=== PATIENT | female | born 1960 | race Caucasian/White ===

== ENCOUNTER → 2023-12-22 | Outpatient (CLI) | payer MEDICARE, SELFPAY ==
--- NOTE | 2023-12-22 14:14 | CT_ITS ---
INDICATION: pain EXAMINATION: CT LUMBAR SPINE - CT Spine Lumbar W/O Contrast Injection TECHNIQUE: Helically acquired images were obtained of the lumbar spine. 2D reformats were reviewed. A radiation dose optimization technique was used for this scan. IV Contrast dosage and agent: None. RADIATION DOSAGE (If Supplied By Facility): CTDIvol = ( 23.67 ) mGy, DLP = ( 900.88 ) mGycm COMPARISON: Radiographs of the lumbar spine of 12/15/2023. FINDINGS: VERTEBRAE: Moderate compression fracture of C3 vertebra appears to be chronic. The remainder of the vertebral heights are within normal limits. No discrete lytic or blastic abnormality observed. Normal lumbar lordosis. No substantial scoliosis. DISCS and SPINAL CANAL: Fusion arm L1, L2 and L4 vertebrae with bilateral pedicle screws stabilizing fracture of L3. Depression of the superior endplate of L1 through which the pedicle screws traversing. Difficult to accurately evaluate the disks due to significant artifacts. L1-2: No critical stenosis. L2-L3: Severe artifacts from pedicle screws limiting the evaluation of the intervertebral disc. L3-L4: Degenerative changes in the facet joints. Mild broad-based disc bulging. Borderline central spinal canal.. L4-L5: Severe narrowing of the disc space. Mild broad-based disc bulging and degenerative changes in the facet joints. Narrowing of the neural foramina. Borderline central spinal canal. L5-S1: Degenerative changes in facet joints. Mild broad-based disc bulging. VISUALIZED ABDOMEN: Visualized abdominal aorta is not dilated. There is no retroperitoneal adenopathy. CT/Spine Lumbar without Contrast IMPRESSION: 1. Status post fusion of the lumbar spine as described above stabilizing fracture of L3. 2. Degenerative changes as described above. 3. Limited examination due to significant artifacts from hardware. Electronically Signed: Jose Barnes MD at 15:18 EST ,
== END | disposition home or self-care (01) ==
LOC: CT 14:11
PROVIDERS: PCP Family Medicine; Referring Provider Orthopaedic Surgery Orthopaedic Surgery of the Spine; Visit Provider Orthopaedic Surgery Orthopaedic Surgery of the Spine
DX: Z98.1 Arthrodesis status (principal)
CPT/HCPCS: 72131

== ENCOUNTER → 2023-12-23 | Outpatient (CLI) | payer MEDICARE, SELFPAY ==
--- OUTSIDE RECORDS SUMMARY | 2023-12-23 16:14 | XMS RPT_ITS | CCD ---
Author Name Unknown Address [address] [place] [address] Organization [facility] Care Team Providers Care Air Brake Rigger Name Role Phone PROVIDER, UNKNOWN Unavailable Unavailable Distel, Albina Unavailable Unavailable Distel, Albina Unavailable Unavailable Distel, Albina Mackenzie Primary Care Unavailable Avery, Ashely Unavailable Unavailable Oberhauser, Walt Unavailable Unavailable Distel, Albina M Unavailable Unavailable Avery, Ashely E Unavailable Unavailable Oberhauser, Walt L Unavailable Unavailable Renee Sierra Primary Care Provider Renee Sierra Primary Care Provider SIN PONCE Attending Unavail able SIN PONCE Referring Unavail able RENEE SIERRA Primary Care Unavailable Oberhauser DODorcasn Unavailable Unavailable Distel, Albina M Unavailable Unavailable Avery, Ashely E Unavailable Unavailable Oberhauser, Walt L Unavailable Unavailable Distel, Albina M Unavailable Unavailable Unavailable Liliya Lara MD Primary Care Provider [phone] Ashely Avery MD Unavailable Unavailable Avery, Ashely E Unavailable Unavailable Oberhauser, Walt Angelita Unavailable Unavailab le LILIYA LARA Primary Care Unavailable SYSTEM, PROVIDER NOT IN Referring Unavaila ble SYSTEM, PROVIDER NOT IN Attending Unavaila ble SYSTEM, PROVIDER NOT IN Attending Unavaila ble LILIYA LARA Primary Care Unavailable SYSTEM, PROVIDER NOT IN Referring Unavaila ble Renee Sierra Primary Care Provider Nagi Wagner MD Unavailable Distel, Albina M Unavailable Johnathan Ma I Unavailable Unavailable JaneLiliya bradford MD Primary Care Provider Mariela Renee Alberts Primary Care Provider Nagi Wagner MD Unavailable [facility] Renee Alberts Primary Care Provider Nagi Wagner MD Unavailable JaneLiliya bradford MD Primary Care Provider Liliya Lara MD Primary Care Provider Jet Kenney Unavailable Unavailable SYSTEM, PROVIDER NOT IN Admitting Unavaila ble JANE, LILIYA Primary Care Unavailable JANE, LILIYA Primary Care Unavailable JANE, LILIYA Admitting Unavailable JANE, LILIYA Primary Care Unavailable JANE, LILIYA Admitting Unavailable JANE, LILIYA Primary Care Unavailable SHEFALI JAIN Attending Unavailable JANE, LILIYA Primary Care Unavailable ERIN OHARA Attending Unavail able JNAE, LILIYA Attending Unavailable JANE, LILIYA Referring Unavailable JANE, LILIYA Primary Care Unavailable JANE, LILIYA Attending Unavailable JANE, LILIYA Referring Unavailable JANE, LILIYA Primary Care Unavailable JANE, LILIYA Attending Unavailable JANE, LILIYA Referring Unavailable JANE, LILIYA Primary Care Unavailable Jane Liliya ISAACS Primary Care Provider Unavailable Primary Care Provider Unavailwilliams KENNEY, KENNEDY Consulting Unavailable Andino FOOD COUNSELOR TRANSPORTATION SPECIALIST, Sophie M Unavailable Unavailabl e Jane, Liliya Unavailable Joya Ryan Unavailable Unavailable Asehly Gleason Unavailable Unavailable Mancesarhio, Ms. Lund Attending Unavail able Jaimie, Dr. Albina Mann Primary Care Unavailgreyson Kenney, Dr. Jet Montez Attending Unava ilroderick Etienne, Dr. Albina Mann Primary Care Unavailgreyson Kenney, Dr. Benavides Chito Attending Unavailwilliams Kenney, Dr. Kennedy Dale Referring Unavailabl e Sadie, Ms. Thompson Attending Unavaila MD JOYA Cooper Attending Unavailable JANE, LILIYA Primary Care Unavailable JANE, LILIYA Attending Unavailable JANE, LILIYA Primary Care Unavailable AL GAMEZ Attending Unavailable JANE, LILIYA Primary Care Unavailable JANE, LILIYA Attending Unavailable JANE, LILIYA Primary Care Unavailable JANE, LILIYA Attending Unavailable JANE, LILIYA Attending Unavailable JANE, LILIYA Primary Care Unavailable JANE, LILIYA Attending Unavailable JANE, LILIYA Primary Care Unavailable JANE, LILIYA Primary Care Unavailable JANE, LILIYA Attending Unavailable JANE, LILIYA Attending Unavailable JANE, LILIYA Primary Care Unavailable JANE, LILIYA Attending Unavailable JANE, LILIYA Primary Care Unavailable JANE, LILIYA Primary Care Unavailable JANE, LILIYA Attending Unavailable JANE, LILIYA Primary Care Unavailable SAI CELESTIN Attending Unavailable JANE, LILIYA Primary Care Unavailable JANE, LILIYA Attending Unavailable JANE, LILIYA Primary Care Unavailable THANIA LOWERY Attending Unavailable JANE, LILIYA Primary Care Unavailable AL GAMEZ Attending Unavailable JANE, LILIYA Primary Care Unavailable SAI CELESTIN Attending Unavailable Nagi Wagner MD Unavailable [phone] Thu FOOD COUNSELOR TRANSPORTATION SPECIALISTSophie Unavailable Unavailabl e PROVIDER, UNKNOWN Referring Unavailable JANE, LILIYA Primary Care Unavailable KENNEDY KENNEY Unavailable Malvin Johnson DO Primary Care Provider [phone] EFRA BUCK Attending Unavailable JANE, LILIYA Primary Care Unavailable NORMA NARAYANAN Referring Unavailable SHIVA MALVIN A Primary Care Unavailable WALT CARRION Attending Unavailable SHIVA, MALVIN A Primary Care Unavailable TOMMY BRENNAN Referring Unavailable JANE, LILIYA Primary Care Unavailable TOMMY BRENNAN Referring Unavailable JANE, LILIYA Primary Care Unavailable TOMMY BRENNAN Attending Unavailable JANE, LILIYA Referring Unavailable JANE, LILIYA Primary Care Unavailable WALT CARRION Referring Unavailable SHIVA, MALVIN A Primary Care Unavailable FREDERIC BARTH Attending Unavailable WALT CARRION Referring Unavailable JOHNSON, MALVIN A Primary Care Unavailable DORCAS CARRIONN Referring Unavailable SHIVA, MALVIN A Primary Care Unavailable REGINA WALT Referring Unavailable NORMA NARAYANAN M Attending Unavailable JANE, LILIYA Primary Care Unavailable Allergies Allergy Classification Reported Allergen(s) Allergy Type Date of Onset Reaction(s) Facility Bacitracin / Neomycin / Polymyxin B (2 sources) Bacitracin / Neomycin / Polymyxin B; Translations: [Neosporin LT OINT] Drug Allergy [facility] Work Phone: Iodine (and Iodine containting drugs) (2 sources) Iodine; Translations: [iodine] Drug Allergy [facility] Work Phone: Penicillins (antibiotic) (2 sources) Penicillins; Translations: [Penicillins] Drug Allergy [facility] Work Phone: (3 sources) Bacitracin / Neomycin / Polymyxin B Drug Allergy [facility] Work Phone: (20 sources) Iodine; Translations: [IODINE] Drug Allergy 3 Anaphylaxis [facility] Work Phone: (20 sources) Penicillins; Translations: [Penicillins] Allergy to drug (finding) 2 Rash [facility] Work Phone: (20 sources) Adhesive agent; Translations: [ADHESIVE] Propensity to adverse reactions to drug 7 Itching, Rash [facility] (20 sources) Gramicidin / Neomycin / Polymyxin B; Translations: [NEOMYCIN-POLYM YXIN-GRAMICIDIN ] Drug Allergy 6 [facility] (20 sources) Neomycin-Bacitr acin-Polymyxin; Translations: [NEOMYCIN-BACIT RACIN-POLYMYXIN ] Propensity to adverse reactions to drug 9 Rash, Itching [facility] (20 sources) Penicillins Propensity to adverse reactions to drug 2 Other: See Comments [facility] (20 sources) Iodine And Iodide Containing Products; Translations: [IODINE AND IODIDE CONTAINING PRODUCTS] Propensity to adverse reactions to drug Unknown [facility] (4 sources) Contrast media Rash, Itching, Other [facility] (20 sources) Ct: Iodinated Contrast- Oral And Iv Dye; Translations: [CT: IODINATED CONTRAST- ORAL AND IV DYE] Propensity to adverse reactions to drug 2 Unknown, Rash [facility] Work Phone: (20 sources) Penicillins Propensity to adverse reactions to drug 2 Other: See Comments [facility] (2 sources) Penicillins Propensity to adverse reactions 3 [facility] Medications Current Medications Medication Drug Class(es) Dates Sig (Normalized) Sig (Original) acetaminophen 325 mg / butalbital 50 mg / caffeine 40 mg oral capsule (2 sources) Barbiturate, Central Nervous System Stimulant, Methylxanthine Start: 02-17-2021 End: 02-27-2021 take 1 capsule by mouth every four hours as needed for pain butalbital-acetamin ophen-caffeine (FIORICET, ESGIC) 50-325-40 mg per capsule Indications: Migraine with status migrainosus, not intractable, unspecified migraine type Take 1 (one) capsule by mouth every 4 (four) hours as needed for pain or headaches . 30 capsule 1 02/17/2021 02/27/2021 Active acetaminophen 325 mg / HYDROcodone bitartrate 5 mg oral tablet (2 sources) Opioid Agonist Start: 06-23-2023 End: 06-29-2023 take 1 tablet by mouth every eight hours as needed for pain HYDROcodone-acetami nophen (NORCO) 5-325 mg per tablet Indications: Degeneration of lumbar intervertebral disc Take 1 (one) tablet by mouth every 8 (eight) hours as needed for pain . 18 tablet 0 06/23/2023 06/29/2023 Active acetaminophen 325 mg / oxyCODONE hydrochloride 10 mg oral tablet (20 sources) Opioid Agonist Start: 06-25-2023 End: 06-28-2023 take 1 tablet by mouth every eight hours as needed for pain oxyCODONE-acetamino phen (PERCOCET) 10-325 mg per tablet Indications: Degeneration of lumbar intervertebral disc Take 1 (one) tablet by mouth every 8 (eight) hours as needed for pain . 10 tablet 0 06/25/2023 06/28/2023 Active Completed/Discontinued Medications Medication Drug Class(es) Dates Sig (Normalized) Sig (Original) acetaminophen 300 mg / codeine phosphate 30 mg oral tablet (4 sources) Opioid Agonist Start: 04-22-2020 take 1 tablet by mouth four times daily as needed for pain Acetaminophen-Cod eine 300-30 MG Oral Tablet TAKE 1 TABLET 4 TIMES DAILY NEEDED FOR PAIN. Quantity: 30 Refills: 0 Ordered: 22-Apr-2020 Walt Caban DO Start : 22-Apr-2020 Active Problems Active Problems Problem Classification Problem Date Documented Da te Episodic/Chronic Acquired foot deformities (16 sources) Acquired hallux rigidus; Translations: [Hallux rigidus, unspecified foot] Onset: 10-02-2009 10-02-2009 Chronic Acute bronchitis (5 sources) Acute bronchitis; Translations: [Acute bronchitis] Episodic Allergic reactions (20 sources) Allergy status to other drugs, medicaments and biological substances status; Translations: [Allergy status to penicillin] Onset: 07-06-2018 Resolved: 04-20-2022 Episodic Anxiety disorders (20 sources) Panic attack; Translations: [Mixed anxiety and depressive disorder] Onset: 12-17-2015 Resolved: 04-27-2022 12-25-2020 Chronic Past or Other Problems Problem Classification Problem Date Documented Da te Episodic/Chronic Acquired foot deformities (20 sources) Abduction deformity of foot; Translations: [Valgus deformity, not elsewhere classified, right ankle] Onset: 10-27-2021 Episodic Administrative/social admission (20 sources) Financial problem; Translations: [Problem related to housing and economic circumstances, unspecified] Onset: 05-29-2022 Episodic Cardiac dysrhythmias (20 sources) Bradycardia; Translations: [Bradycardia, unspecified] Onset: 12-16-2021 Resolved: 04-27-2022 Episodic Conditions associated with dizziness or vertigo (20 sources) Vertigo; Translations: [Dizziness and giddiness] Onset: 12-16-2021 Resolved: 04-27-2022 Episodic Coronary atherosclerosis and other heart disease (12 sources) History of myocardial infarction; Translations: [History of coronary artery bypass grafting] Onset: 10-05-2015 12-25-2020 Episodic Diabetes mellitus without complication (19 sources) Impaired glucose tolerance in obese; Translations: [Impaired glucose tolerance (oral)] Onset: 01-17-2023 01-17-2023 Episodic E Codes: Struck by; against (1 source) Striking against other object with subsequent fall, initial encounter; Translations: [Striking against oth object w subsequent fall, init encntr] Onset: 02-14-2023 Episodic Genitourinary symptoms and ill-defined conditions (2 sources) Dysuria; Translations: [Dysuria] Onset: 08-16-2022 Episodic Hemorrhoids (20 sources) Hemorrhoids; Translations: [Unspecified hemorrhoids without mention of complication] Onset: 12-25-2020 12-25-2020 Episodic Nonspecific chest pain (16 sources) Chest discomfort; Translations: [Other chest pain] Onset: 01-19-2017 01-21-2017 Episodic Other aftercare (2 sources) Encounter for therapeutic drug level monitoring; Translations: [Encounter for therapeutic drug level monitoring] Onset: 01-17-2023 Episodic Other bone disease and musculoskeletal deformities (5 sources) Other specified disorders of bone density and structure, unspecified site; Translations: [Oth disrd of bone density and structure, unspecified site] Onset: 07-06-2018 Episodic Other bone disease and musculoskeletal deformities (1 source) Other specified disorders of bone density and structure, left forearm; Translations: [Oth disrd of bone density and structure, left forearm] Onset: 03-18-2023 Episodic Other bone disease and musculoskeletal deformities (1 source) Other specified disorders of bone density and structure, other site; Translations: [Oth disrd of bone density and structure, other site] Onset: 03-18-2023 Episodic Other connective tissue disease (20 sources) Bilateral bursitis of shoulders; Translations: [Bursitis of right shoulder] Onset: 01-19-2022 Episodic Other connective tissue disease (16 sources) Bilateral cramp of muscle of lower limbs; Translations: [Cramp and spasm] Onset: 01-19-2017 01-21-2017 Episodic Other connective tissue disease (4 sources) Bursitis of right shoulder; Translations: [Bursitis of right shoulder] Onset: 01-19-2022 Episodic Other connective tissue disease (4 sources) Bursitis of left shoulder; Translations: [Bursitis of left shoulder] Onset: 01-19-2022 Episodic Other injuries and conditions due to external causes (16 sources) Superficial injury; Translations: [Unspecified multiple injuries, initial encounter] Onset: 02-28-2009 02-28-2009 Episodic Other injuries and conditions due to external causes (1 source) Other specified injuries of head, initial encounter; Translations: [Other specified injuries of head, initial encounter] Onset: 02-14-2023 Episodic Other injuries and conditions due to external causes (1 source) Unspecified injury of left forearm, initial encounter; Translations: [Unspecified injury of left forearm, initial encounter] Onset: 02-14-2023 Episodic Other lower respiratory disease (5 sources) H/O: respiratory disease; Translations: [Personal history of other diseases of respiratory system] Resolved: 07-05-2018 Episodic Other lower respiratory disease (12 sources) Rib pain; Translations: [Pleurodynia] Onset: 02-23-2023 02-23-2023 Episodic Other lower respiratory disease (5 sources) Pleurodynia; Translations: [Pleurodynia] Onset: 02-14-2023 Episodic Other non-traumatic joint disorders (20 sources) Hip pain; Translations: [Pain in left hip] Onset: 07-26-2022 Episodic Other nutritional; endocrine; and metabolic disorders (20 sources) Weight loss; Translations: [Loss of weight] Resolved: 12-16-2021 05-07-2021 Episodic Other nutritional; endocrine; and metabolic disorders (1 source) Body mass index (BMI) 29.0-29.9, adult; Translations: [Body mass index [BMI] 29.0-29.9, adult] Onset: 02-14-2023 Episodic Other screening for suspected conditions (not mental disorders or infectious disease) (20 sources) Patient encounter status; Translations: [Other specified vaccination] Onset: 01-16-2022 Episodic Results Test Name Value Interpretation Reference Range Facil it Vital Signs Date Time Vital Sign Value Performing Clinician Facility 10-24-2023 10:32-0500 Body height 160 cm Walt Carrion APRN.CNP Work Phone: [facility] 10-24-2023 10:32-0500 Body weight 89.22 kg Walt Carrion APRN.CNP Work Phone: [facility] 10-24-2023 10:32-0500 Diastolic blood pressure 67 mm[Hg] Walt Carrion APRN.CNP Work Phone: [facility] 10-24-2023 10:32-0500 Heart rate 57 /min Walt Carrion APRN.PUNCH HAND Work Phone: [facility] 10-24-2023 10:32-0500 Respiratory rate 18 /min Walt Carrion APRN.CNP Work Phone: [facility] 10-24-2023 10:32-0500 Systolic blood pressure 112 mm[Hg] Walt Carrion APRN.CNP Work Phone: [facility] 09-26-2023 14:27-0500 Body temperature 97.9 [degF] Sp[facility] Main Work Phone: [facility] 09-26-2023 14:27-0500 Diastolic blood pressure 60 mm[Hg] [facility] Main Work Phone: [facility] 09-26-2023 14:27-0500 Heart rate 52 /min [facility] Work Phone: [facility] 09-26-2023 14:27-0500 Respiratory rate 18 /min [facility] Work Phone: [facility] 09-26-2023 14:27-0500 SaO2% (BldA) [Mass fraction] 98 % [facility] Work Phone: [facility] 09-26-2023 14:27-0500 Systolic blood pressure 114 mm[Hg] [facility] Main Work Phone: [facility] 09-19-2023 13:21-0500 Body temperature 98.71 [degF] Sp[facility] Main Work Phone: [facility] 09-19-2023 13:21-0500 Diastolic blood pressure 59 mm[Hg] [facility] Main Work Phone: [facility] 09-19-2023 13:21-0500 Heart rate 57 /min Sp[facility] Main Work Phone: [facility] 09-19-2023 13:21-0500 Respiratory rate 18 /min [facility] Main Work Phone: [facility] 09-19-2023 13:21-0500 Systolic blood pressure 108 mm[Hg] Sp[facility] Main Work Phone: [facility] 08-01-2023 09:49-0400 Body height 160.7 cm Liliya Lara MD Work Phone: [facility] 08-01-2023 09:49-0400 Body temperature 98.49 [degF] Liliya Lara MD Work Phone: [facility] 08-01-2023 09:49-0400 Diastolic blood pressure 68 mm[Hg] Liliya Lara MD Work Phone: [facility] 08-01-2023 09:49-0400 Heart rate 49 /min Liliya Lara MD Work Phone: [facility] 08-01-2023 09:49-0400 Respiratory rate 16 /min Liliya Lara MD Work Phone: [facility] 08-01-2023 09:49-0400 SaO2% (BldA) [Mass fraction] 95 % Liliya Lara MD Work Phone: [facility] 08-01-2023 09:49-0400 Systolic blood pressure 130 mm[Hg] Liliya Lara MD Work Phone: [facility] 06-22-2023 23:11-0400 Diastolic blood pressure 90 mm[Hg] Liliya Lara [facility] 06-22-2023 23:11-0400 Heart rate 58 /min Liliya Jane [facility] 06-22-2023 23:11-0400 Respiratory rate 16 /min Liliya Jane [facility] 06-22-2023 23:11-0400 SaO2% (BldA) [Mass fraction] 97 % Liliya Jane [facility] 06-22-2023 23:11-0400 Systolic blood pressure 107 mm[Hg] Liliya Jane [facility] 06-22-2023 15:03-0400 Body height 160 cm Liliya Jane [facility] 06-22-2023 15:03-0400 Body temperature 97.88 [degF] Liliya Jane [facility] 06-22-2023 15:03-0400 Body weight 84.5 kg Liliya Jane [facility] 06-21-2023 19:51-0400 Body height 160 cm Liliya Jane [facility] 06-21-2023 19:51-0400 Body temperature 98.06 [degF] Liliya Jane [facility] 06-21-2023 19:51-0400 Body weight 84 kg Liliya Jane [facility] 06-21-2023 19:51-0400 Diastolic blood pressure 85 mm[Hg] Liliya Jane [facility] 06-21-2023 19:51-0400 Heart rate 58 /min Liliya Lara [facility] 06-21-2023 19:51-0400 Respiratory rate 18 /min Liliya Lara [facility] 06-21-2023 19:51-0400 SaO2% (BldA) [Mass fraction] 98 % Liliya Lara [facility] 06-21-2023 19:51-0400 Systolic blood pressure 154 mm[Hg] Liliya Lara [facility] 06-21-2023 16:54-0400 Body height 160.7 cm Liliya Lara MD Work Phone: [facility] 06-21-2023 16:54-0400 Body temperature 98.01 [degF] Liliya Lara MD Work Phone: [facility] 06-21-2023 16:54-0400 Diastolic blood pressure 75 mm[Hg] Liliya Lara MD Work Phone: [facility] 06-21-2023 16:54-0400 Heart rate 56 /min Liliya Lara MD Work Phone: [facility] 06-21-2023 16:54-0400 Respiratory rate 16 /min Liliya Lara MD Work Phone: [facility] 06-21-2023 16:54-0400 SaO2% (BldA) [Mass fraction] 97 % Liliya Lara MD Work Phone: [facility] 06-21-2023 16:54-0400 Systolic blood pressure 137 mm[Hg] Liliya Lara MD Work Phone: [facility] 05-16-2023 18:09-0400 Body temperature 98.49 [degF] [facility] 05-16-2023 18:09-0400 Diastolic blood pressure 55 mm[Hg] [facility] 05-16-2023 18:09-0400 Heart rate 60 /min [facility] 05-16-2023 18:09-0400 Respiratory rate 17 /min [facility] 05-16-2023 18:09-0400 SaO2% (BldA) [Mass fraction] 99 % [facility] 05-16-2023 18:09-0400 Systolic blood pressure 118 mm[Hg] [facility] 05-04-2023 18:44-0400 Body height 167.6 cm Liliya Lara MD Work Phone: [facility] 05-04-2023 18:44-0400 Body mass index (BMI) [Ratio] 30.34 kg/m2 Liliya Lara MD Work Phone: [facility] 05-04-2023 18:44-0400 Body temperature 98.2 [degF] Liliya Lara MD Work Phone: [facility] 05-04-2023 18:44-0400 Body weight 85.28 kg Lilyia Lara MD Work Phone: [facility] 05-04-2023 18:44-0400 Diastolic blood pressure 66 mm[Hg] Liliya Lara MD Work Phone: [facility] 05-04-2023 18:44-0400 Heart rate 97 /min Liliya Lara MD Work Phone: [facility] 05-04-2023 18:44-0400 Respiratory rate 16 /min Liliya Lara MD Work Phone: [facility] 05-04-2023 18:44-0400 SaO2% (BldA) [Mass fraction] 98 % Liliya Lara MD Work Phone: [facility] 05-04-2023 18:44-0400 Systolic blood pressure 96 mm[Hg] Liliya Lara MD Work Phone: [facility] 04-28-2023 09:36-0400 Body height 167.6 cm Efra Buck APRN.PUNCH HAND Work Phone: [facility] 04-28-2023 09:36-0400 Body weight 85.28 kg Efra Buck APRN.PUNCH [employer] Work Phone: [facility] 04-28-2023 09:36-0400 Diastolic blood pressure 62 mm[Hg] Efra Buck YARN WORKER.P[employer] Work Phone: [facility] 04-28-2023 09:36-0400 Heart rate 53 /min Efra Buck YARN WORKER.P[employer] Work Phone: [facility] 04-28-2023 09:36-0400 Respiratory rate 18 /min Efra Buck YARN WORKER.PUN[employer] Work Phone: [facility] 04-28-2023 09:36-0400 SaO2% (BldA) [Mass fraction] 98 % Efra Buck YARN WORKER.P[employer]CH [employer] Work Phone: [facility] 04-28-2023 09:36-0400 Systolic blood pressure 128 mm[Hg] Efra Buck YARN WORKER.PUNCH HAND Work Phone: [facility] 02-23-2023 07:35-0400 Body height 167.6 cm Liliya Lara MD Work Phone: [facility] 02-23-2023 07:35-0400 Body temperature 98.4 [degF] Liliya Lara MD Work Phone: [facility] 02-23-2023 07:35-0400 Diastolic blood pressure 82 mm[Hg] Liliya Lara MD Work Phone: [facility] 02-23-2023 07:35-0400 Heart rate 58 /min Liliya Lara MD Work Phone: [facility] 02-23-2023 07:35-0400 Respiratory rate 16 /min Liliya Lara MD Work Phone: [facility] 02-23-2023 07:35-0400 SaO2% (BldA) [Mass fraction] 94 % Liliya Lara MD Work Phone: [facility] 02-23-2023 07:35-0400 Systolic blood pressure 124 mm[Hg] Liliya Lara MD Work Phone: [facility] 02-14-2023 23:12-0400 Diastolic blood pressure 72 mm[Hg] Albina Etienne Other Phone: [facility] 02-14-2023 23:12-0400 Heart rate 54 /min Albina Distel Other Phone: [facility] 02-14-2023 23:12-0400 Respiratory rate 18 /min Albina Distel Other Phone: [facility] 02-14-2023 23:12-0400 SaO2% (BldA) [Mass fraction] 98 % Albina Distel Other Phone: [facility] 02-14-2023 23:12-0400 Systolic blood pressure 146 mm[Hg] Albina Distel Other Phone: [facility] 02-14-2023 20:13-0400 Body height 167.6 cm Albina Distel Other Phone: [facility] 02-14-2023 20:13-0400 Body temperature 97.88 [degF] Albina Distel Other Phone: [facility] 02-14-2023 20:13-0400 Body weight 81.8 kg Albina Distel Other Phone: [facility] 01-17-2023 18:18-0500 Body height 167.6 cm Liliya Lara MD Work Phone: [facility] 01-17-2023 18:18-0500 Body mass index (BMI) [Ratio] 29.05 kg/m2 Liliya Lara MD Work Phone: [facility] 01-17-2023 18:18-0500 Body temperature 98.01 [degF] Liliya Lara MD Work Phone: [facility] 01-17-2023 18:18-0500 Body weight 81.65 kg Liliya Lara MD Work Phone: [facility] 01-17-2023 18:18-0500 Diastolic blood pressure 79 mm[Hg] Liliya Lara MD Work Phone: [facility] 01-17-2023 18:18-0500 Heart rate 63 /min Liliya Lara MD Work Phone: [facility] 01-17-2023 18:18-0500 Respiratory rate 16 /min Liliya Lara MD Work Phone: [facility] 01-17-2023 18:18-0500 SaO2% (BldA) [Mass fraction] 99 % Liliya Lara MD Work Phone: [facility] 01-17-2023 18:18-0500 Systolic blood pressure 139 mm[Hg] Liliya Lara MD Work Phone: [facility] 11-03-2022 09:29-0500 Body height 167.6 cm Guevara Espino MD Work Phone: [facility] 11-03-2022 09:29-0500 Body weight 80.29 kg Guevara Espino MD Work Phone: [facility] 11-03-2022 09:29-0500 Diastolic blood pressure 78 mm[Hg] Guevara Espino MD Work Phone: [facility] 11-03-2022 09:29-0500 Heart rate 69 /min Guevara Espino MD Work Phone: [facility] 11-03-2022 09:29-0500 Respiratory rate 18 /min Guevara Espino MD Work Phone: [facility] 11-03-2022 09:29-0500 SaO2% (BldA) [Mass fraction] 98 % Guevara Espino MD Work Phone: [facility] 11-03-2022 09:29-0500 Systolic blood pressure 122 mm[Hg] Guevara Espino MD Work Phone: [facility] 10-26-2022 10:28-0500 Body height 167.6 cm Liliya Lara MD Work Phone: [facility] 10-26-2022 10:28-0500 Body mass index (BMI) [Ratio] 27.44 kg/m2 Liliya Lara MD Work Phone: [facility] 10-26-2022 10:28-0500 Body temperature 98.4 [degF] Liliya Lara MD Work Phone: [facility] 10-26-2022 10:28-0500 Body weight 77.11 kg Liliya Lara MD Work Phone: [facility] 10-26-2022 10:28-0500 Diastolic blood pressure 80 mm[Hg] Liliya Lara MD Work Phone: [facility] 10-26-2022 10:28-0500 Heart rate 64 /min Liliya Lara MD Work Phone: [facility] 10-26-2022 10:28-0500 Respiratory rate 16 /min Liliya Lara MD Work Phone: [facility] 10-26-2022 10:28-0500 SaO2% (BldA) [Mass fraction] 98 % Liliya Lara MD Work Phone: [facility] 10-26-2022 10:28-0500 Systolic blood pressure 119 mm[Hg] Liliya Lara MD Work Phone: [facility] 08-12-2022 10:02-0400 Body height 167.6 cm Guevara Espino MD Work Phone: [facility] 08-12-2022 10:02-0400 Body weight 79.38 kg Guevara Espino MD Work Phone: [facility] 08-12-2022 10:02-0400 Diastolic blood pressure 76 mm[Hg] Guevara Espino MD Work Phone: [facility] 08-12-2022 10:02-0400 Heart rate 57 /min Guevara Espino MD Work Phone: [facility] 08-12-2022 10:02-0400 SaO2% (BldA) [Mass fraction] 97 % Guevara Espino MD Work Phone: [facility] 08-12-2022 10:02-0400 Systolic blood pressure 113 mm[Hg] Guevara Espino MD Work Phone: [facility] 07-21-2022 16:43-0400 Body height 167.6 cm Liliya Lara MD Work Phone: [facility] 07-21-2022 16:43-0400 Body mass index (BMI) [Ratio] 27.44 kg/m2 Liliya Lara MD Work Phone: [facility] 07-21-2022 16:43-0400 Body temperature 97.39 [degF] Liliya Lara MD Work Phone: [facility] 07-21-2022 16:43-0400 Body weight 77.11 kg Liliya Lara MD Work Phone: [facility] 07-21-2022 16:43-0400 Diastolic blood pressure 73 mm[Hg] Liliya Lara MD Work Phone: [facility] 07-21-2022 16:43-0400 Heart rate 60 /min Liliya Lara MD Work Phone: [facility] 07-21-2022 16:43-0400 Respiratory rate 16 /min Liliya Lara MD Work Phone: [facility] 07-21-2022 16:43-0400 SaO2% (BldA) [Mass fraction] 97 % Liliya Lara MD Work Phone: [facility] 07-21-2022 16:43-0400 Systolic blood pressure 114 mm[Hg] Liliya Lraa MD Work Phone: [facility] 05-25-2022 06:49-0400 Body height 167.6 cm Liliya Lara MD Work Phone: [facility] 05-25-2022 06:49-0400 Body mass index (BMI) [Ratio] 26.63 kg/m2 Liliya Lara MD Work Phone: [facility] 05-25-2022 06:49-0400 Body temperature 98.2 [degF] Liliya Lara MD Work Phone: [facility] 05-25-2022 06:49-0400 Body weight 74.84 kg Liliya Lara MD Work Phone: [facility] 05-25-2022 06:49-0400 Diastolic blood pressure 81 mm[Hg] Liliya Lara MD Work Phone: [facility] 05-25-2022 06:49-0400 Heart rate 58 /min Liliya Lara MD Work Phone: [facility] 05-25-2022 06:49-0400 Respiratory rate 16 /min Liliya Lara MD Work Phone: [facility] 05-25-2022 06:49-0400 SaO2% (BldA) [Mass fraction] 96 % Liliya Lara MD Work Phone: [facility] 05-25-2022 06:49-0400 Systolic blood pressure 129 mm[Hg] Liliya Lara MD Work Phone: [facility] 04-20-2022 16:08-0400 Body height 167.6 cm Liliya Lara MD Work Phone: [facility] 04-20-2022 16:08-0400 Body mass index (BMI) [Ratio] 27.44 kg/m2 Liliya Lara MD Work Phone: [facility] 04-20-2022 16:08-0400 Body temperature 97 [degF] Liliya Lara MD Work Phone: [facility] 04-20-2022 16:08-0400 Body weight 77.11 kg Liliya Lara MD Work Phone: [facility] 04-20-2022 16:08-0400 Diastolic blood pressure 65 mm[Hg] Liliya Lara MD Work Phone: [facility] 04-20-2022 16:08-0400 Heart rate 47 /min Liliya Lara MD Work Phone: [facility] 04-20-2022 16:08-0400 Respiratory rate 16 /min Liliya Lara MD Work Phone: [facility] 04-20-2022 16:08-0400 SaO2% (BldA) [Mass fraction] 96 % Liliya Lara MD Work Phone: [facility] 04-20-2022 16:08-0400 Systolic blood pressure 112 mm[Hg] Liliya Lara MD Work Phone: [facility] 04-10-2022 22:08-0400 Diastolic blood pressure 80 mm[Hg] Albina Distel Other Phone: [facility] 04-10-2022 22:08-0400 Heart rate 87 /min Albina Distel Other Phone: [facility] 04-10-2022 22:08-0400 Respiratory rate 16 /min Albina Distel Other Phone: [facility] 04-10-2022 22:08-0400 SaO2% (BldA) [Mass fraction] 98 % Albina Distel Other Phone: [facility] 04-10-2022 22:08-0400 Systolic blood pressure 120 mm[Hg] Albina Distel Other Phone: [facility] 04-10-2022 20:59-0400 Body height 167.6 cm Albina Distel Other Phone: [facility] 04-10-2022 20:59-0400 Body temperature 97.16 [degF] Albina Distel Other Phone: [facility] 04-10-2022 20:59-0400 Body weight 76.4 kg Albina Distel Other Phone: [facility] 02-23-2022 08:58-0400 Body temperature 98.01 [degF] Sai Celestin RN [facility] 01-19-2022 15:48-0500 Body height 167.6 cm Liliya Lara MD Work Phone: [facility] 01-19-2022 15:48-0500 Body mass index (BMI) [Ratio] 27.6 kg/m2 Liliya Lara MD Work Phone: [facility] 01-19-2022 15:48-0500 Body temperature 98.2 [degF] Liliya Lara MD Work Phone: [facility] 01-19-2022 15:48-0500 Body weight 77.56 kg Liliya Lara MD Work Phone: [facility] 01-19-2022 15:48-0500 Diastolic blood pressure 71 mm[Hg] Liliya Lara MD Work Phone: [facility] 01-19-2022 15:48-0500 Heart rate 57 /min Liliya Lara MD Work Phone: [facility] 01-19-2022 15:48-0500 Respiratory rate 16 /min Lliiya Lara MD Work Phone: [facility] 01-19-2022 15:48-0500 SaO2% (BldA) [Mass fraction] 97 % Liliya Lara MD Work Phone: [facility] 01-19-2022 15:48-0500 Systolic blood pressure 109 mm[Hg] Liliya Lara MD Work Phone: [facility] 01-13-2022 09:48-0500 Body height 167.6 cm Liliya Lara MD Work Phone: [facility] 01-13-2022 09:48-0500 Body mass index (BMI) [Ratio] 27.92 kg/m2 Liliya Lara MD Work Phone: [facility] 01-13-2022 09:48-0500 Body temperature 97.59 [degF] Liliya Lara MD Work Phone: [facility] 01-13-2022 09:48-0500 Body weight 78.47 kg Liliya Lara MD Work Phone: [facility] 01-13-2022 09:48-0500 Diastolic blood pressure 75 mm[Hg] Liliya Lara MD Work Phone: [facility] 01-13-2022 09:48-0500 Heart rate 56 /min Liliya Lara MD Work Phone: [facility] 01-13-2022 09:48-0500 Respiratory rate 16 /min Liliya Lara MD Work Phone: [facility] 01-13-2022 09:48-0500 SaO2% (BldA) [Mass fraction] 97 % Liliya Lara MD Work Phone: [facility] 01-13-2022 09:48-0500 Systolic blood pressure 112 mm[Hg] Liliya Lara MD Work Phone: [facility] 12-29-2021 15:51-0500 Body height 167.6 cm Liliya Lara MD Work Phone: [facility] 12-29-2021 15:51-0500 Body mass index (BMI) [Ratio] 27.44 kg/m2 Liliya Lara MD Work Phone: [facility] 12-29-2021 15:51-0500 Body temperature 98.1 [degF] Liliya Lara MD Work Phone: [facility] 12-29-2021 15:51-0500 Body weight 77.11 kg Liliya Lara MD Work Phone: [facility] 12-29-2021 15:51-0500 Diastolic blood pressure 69 mm[Hg] Liliya Lara MD Work Phone: [facility] 12-29-2021 15:51-0500 Heart rate 50 /min Liliya Lara MD Work Phone: [facility] 12-29-2021 15:51-0500 Respiratory rate 16 /min Liliya Lara MD Work Phone: [facility] 12-29-2021 15:51-0500 SaO2% (BldA) [Mass fraction] 98 % Liliya Lara MD Work Phone: [facility] 12-29-2021 15:51-0500 Systolic blood pressure 107 mm[Hg] Liliya Lara MD Work Phone: [facility] 12-15-2021 18:24-0500 Body height 167.6 cm Liliya Lara MD Work Phone: [facility] 12-15-2021 18:24-0500 Body mass index (BMI) [Ratio] 27.63 kg/m2 Liliya Lara MD Work Phone: [facility] 12-15-2021 18:24-0500 Body temperature 97.59 [degF] Liliya Lara MD Work Phone: [facility] 12-15-2021 18:24-0500 Body weight 77.66 kg Liliya Lara MD Work Phone: [facility] 12-15-2021 18:24-0500 Diastolic blood pressure 82 mm[Hg] Liliya Lara MD Work Phone: [facility] 12-15-2021 18:24-0500 Heart rate 63 /min Liliya Lara MD Work Phone: [facility] 12-15-2021 18:24-0500 Respiratory rate 18 /min Liliya Lara MD Work Phone: [facility] 12-15-2021 18:24-0500 SaO2% (BldA) [Mass fraction] 96 % Liliya Lara MD Work Phone: [facility] 12-15-2021 18:24-0500 Systolic blood pressure 130 mm[Hg] Liliya Lara MD Work Phone: [facility] 11-03-2021 15:18-0500 Body height 167.6 cm Liliya Lara MD Work Phone: [facility] 11-03-2021 15:18-0500 Body mass index (BMI) [Ratio] 26.79 kg/m2 Liliya Lara MD Work Phone: [facility] 11-03-2021 15:18-0500 Body temperature 98.4 [degF] Liliya Lara MD Work Phone: [facility] 11-03-2021 15:18-0500 Body weight 75.3 kg Liliya Lara MD Work Phone: [facility] 11-03-2021 15:18-0500 Diastolic blood pressure 60 mm[Hg] Liliya Lara MD Work Phone: [facility] 11-03-2021 15:18-0500 Heart rate 61 /min Liliya Lara MD Work Phone: [facility] 11-03-2021 15:18-0500 Respiratory rate 16 /min Liliya Lara MD Work Phone: [facility] 11-03-2021 15:18-0500 SaO2% (BldA) [Mass fraction] 96 % Liliya Lara MD Work Phone: [facility] 11-03-2021 15:18-0500 Systolic blood pressure 95 mm[Hg] Liliya Lara MD Work Phone: [facility] 02-17-2021 13:14-0400 BMI (Body Mass Index) 27.26 kg/m2 [facility] 02-17-2021 13:14-0400 Body Temperature 98.29 [degF] [facility] 02-17-2021 13:14-0400 Body weight 76.61 kg [facility] 02-17-2021 13:14-0400 BP Diastolic 66 mm[Hg] [facility] 02-17-2021 13:14-0400 BP Systolic 116 mm[Hg] [facility] 02-17-2021 13:14-0400 Height 167.6 cm [facility] 02-17-2021 13:14-0400 Pulse (Heart Rate) 62 /min [facility] 02-17-2021 13:14-0400 Pulse Oximetry 97 % [facility] 02-17-2021 13:14-0400 Respiratory Rate 16 /min [facility] 12-25-2020 14:04-0500 BMI (Body Mass Index) 27.42 kg/m2 [facility] 12-25-2020 14:04-0500 Body Temperature 98.2 [degF] [facility] 12-25-2020 14:04-0500 Body weight 77.07 kg [facility] 12-25-2020 14:04-0500 BP Diastolic 68 mm[Hg] [facility] 12-25-2020 14:04-0500 BP Systolic 105 mm[Hg] [facility] 12-25-2020 14:04-0500 Height 167.6 cm [facility] 12-25-2020 14:04-0500 Pulse (Heart Rate) 65 /min [facility] 12-25-2020 14:04-0500 Pulse Oximetry 95 % [facility] 12-25-2020 14:04-0500 Respiratory Rate 16 /min [facility] 01-03-2020 16:49-0500 BMI (Body Mass Index) 25.66 kg/m2 Ashely Avery [facility] Work Phone: 01-03-2020 16:49-0500 Body weight 72.12 kg Ashely Avery [facility] Work Phone: 01-03-2020 16:49-0500 BP Diastolic 66 mm[Hg] Ashely Avery [facility] Work Phone: 01-03-2020 16:49-0500 BP Systolic 116 mm[Hg] Ashely Avery [facility] Work Phone: 01-03-2020 16:49-0500 BSA (Body Surface Area) 1.81 m2 Ashely Avery [facility] Work Phone: 01-03-2020 16:49-0500 Height 167.64 cm Ashely Avery [facility] Work Phone: Encounters Encounter Date Encounter Type Care Provider Facility Start: 11-21-2023 End: 11-21-2023 ambulatory WALT CARRION Facility:[facility] Start: 11-09-2023 ambulatory NORMA NARAYANAN Facility :[facility] Start: 10-24-2023 End: 10-25-2023 ambulatory WALT CARRION Facility:[facility] Start: 10-24-2023 End: 10-24-2023 Subsequent hospital visit by physician Analy Main J1-4 Work Phone: Radiology Procedures Date Procedure Procedure Detail Performing Clinician Start: 10-24-2023 Radex sacrum & coccyx minimum 2 views Walt Carrion [employer] WORK[employer] Work Phone: Start: 05-16-2023 Basic metabolic panel calcium total Kimberly CLANCY Work Phone: Start: 05-16-2023 C-reactive protein Kimberly Pastrana PA Work Phone: Start: 05-16-2023 Ct lumbar spine w/o contrast material Kimberly CLANCY Work Phone: Start: 02-01-2023 Follow-up visit Follow-up LILIYA LARA Start: 02-09-2022 Mammography Linwood ALFREDO Start: 12-25-2020 Lipid 1996 panel - Serum or Plasma Xr J1-4 Work Phone: Start: 02-26-2020 Follow-up visit Start: 01-03-2020 Follow-up visit Start: 01-03-2020 Blood count complete auto&auto difrntl wbc Ashely Avery Start: 01-03-2020 Comprehensive metabolic 2000 panel Ashely Avery Start: 01-03-2020 TSH WITH REFLEX TO FREE T4 IF ABNORMAL Ashely Avery Start: 10-31-2019 Follow-up visit Start: 10-05-2019 Follow-up visit Start: 07-13-2018 Total Knee Replacement Right Albina Etienne Work Phone: Start: 03-17-2018 Lipid 1996 panel - Serum or Plasma Tommy Brennan MD Work Phone: Start: 02-27-2016 Mammography Sai Celestin RN Start: 10-05-2015 History of coronary artery bypass grafting S/P CABG x 3 Sofya Dale MD Work Phone: Start: 02-01-2013 Mammography JA Mohr APRN.[employer] Work Phone: Start: 07-29-2009 H/O: artificial joint Knee joint replacement NA Onur RYAN [employer] Work Phone: Start: 07-29-2009 History of operative procedure on knee Status post knee replacement Sofya Dale MD Work Phone: Appendectomy Ashely Avery History of CABG Ashely olmos Plan of Treatment Date Care Activity Detail Author Start: 07-06-2028 DTaP/Tdap/Td Vaccine s (2 - Td or Tdap) DTaP/Tdap/Td Vaccines (2 - Td or Tdap) [facility] Start: 07-06-2028 Tetanus vaccination Tetanus: Every 1 0yrs [facility] Start: 07-06-2028 Urine microalbumin profile DTa P,Tdap,Td Vaccine (2 - Td or Tdap) [facility] Start: 10-24-2026 Diabetes Screening Diabetes Screenin g [facility] Start: 06-22-2026 Diabetes Screening Diabetes Screenin g [facility] Start: 02-03-2026 DIABETES SCREEN DIABETES SCREEN [facility] Start: 01-13-2026 Screening for malign ant neoplasm of colon [facility] Immunizations Immunization Date Immunization Notes Care Provider Analy murphy 09-15-2023 Influenza, injectabl e, Madin Chelsie Canine Kidney, preservative free, quadrivalent Xr J1-4 Work Phone: [facility] 01-17-2023 Pneumococcal Conjuga te 20-Valent (Prevnar 20) Valery Bradford LPN [facility] 01-17-2023 pneumococcal conj. 20-valent (PREVNAR 20) 0.5 mL vaccine Liliya Lara MD Work Phone: [facility] 04-20-2022 zoster vaccine recombinant Liliya Lara MD Work Phone: [facility] 04-20-2022 varicella-zoster gE, diluent + powder, (SHINGRIX KIT) 50 mcg/0.5 mL injection Liliya Lara MD Work Phone: [facility] 02-23-2022 Pfizer 12+ Years rosamaria-sucrose COVID-19 vaccine Sai Celestin RN [facility] 02-23-2022 COVID-19 vac, rosamaria,Pfizer,,PF, (PFIZER COV-19 VACC, 12 YR UP,) injection (burgos cap) Sai Celestin RN [facility] 01-13-2022 zoster vaccine recombinant Liliya Lara MD Work Phone: [facility] 01-13-2022 varicella-zoster gE, diluent + powder, (SHINGRIX KIT) 50 mcg/0.5 mL injection Liliya Lara MD Work Phone: [facility] 09-25-2021 Seasonal, quadrivale nt, recombinant, injectable influenza vaccine, preservative free Liliya Lara MD Work Phone: [facility] 09-25-2021 Seasonal, trivalent, recombinant, injectable influenza vaccine, preservative free Liliya Lara MD Work Phone: [facility] 09-25-2021 influenza virus vacc ine, unspecified formulation [facility] 01-02-2021 Pfizer SARS-CoV-2 Vaccination Gabbi Kearns [facility] 12-07-2020 Pfizer SARS-CoV-2 Vaccination Gabbi Kearns [facility] 08-19-2020 influenza, injectabl e, quadrivalent, preservative free; Translations: [Influenza, injectable, quadrivalent, preservative free] Gabbi Kearns [facility] Payers Date Payer Category Payer Medicare [id number] 2021 Medicare UHC AAR MEDICAR E [facility] MEDICARE PPO [id number] 2021-Present [phone] [address] [address] [place] [address] PPO [id number] 2021 Unknown 2020 Medicare [employer] MANAGED [facility] AETNA MEDICARE PLAN (PPO) [id number] 2020-Present [id number] 2020 Medicare [id number] 2020 Medicare [id number] 1959 Unknown [id number] 2.16.840.1.151154.3.579.2 .356 1959 Unknown [id number] 2.16.840.1.446528.3.579.2 .903 1959 Unknown [id number] 2.16.840.1.002114.3.579.2 .900 1959 Unknown [id number] 2.16.840.1.791247.3.579.2 .900 1959 Unknown [id number] 2.16.840.1.014729.3.579.2 .903 1959 Unknown [id number] 2.16.840.1.725781.3.579.2 .903 1959 Unknown [id number] 2.16.840.1.200386.3.579.2 .903 1959 Unknown [id number] 2.16.840.1.719333.3.579.2 .902 1959 Unknown [id number] 2.16.840.1.833698.3.579.2 .902 1959 Unknown [id number] 2.16.840.1.122856.3.579.2 .902 1959 Unknown [id number] 2.16.840.1.998278.3.579.2 .902 1959 Unknown [id number] 2.16.840.1.890797.3.579.2 .902 1959 Unknown [id number] 2.16.840.1.208577.3.579.2 .9 1959 Unknown [id number] 2.16.840.1.554280.3.579.2 .9 1959 Unknown [id number] 2.16.840.1.584335.3.579.2 .9 1959 Unknown [id number] 2.16.840.1.977585.3.579.2 .1068 1959 Unknown [id number] 2.16.840.1.175827.3.579.2 .9 1959 Unknown [id number] 2.16.840.1.691689.3.579.2 .903 1959 Unknown [id number] 2.16.840.1.091644.3.579.2 .903 1959 Unknown [id number] 2.16.840.1.813200.3.579.2 .903 1959 Unknown [id number] 2.16.840.1.595181.3.579.2 .903 1959 Unknown [id number] 2.16.840.1.012514.3.579.2 .903 1959 Unknown [id number] 2.16.840.1.020847.3.579.2 .903 1959 Unknown [id number] 2.16.840.1.585652.3.579.2 .903 1959 Unknown [id number] 2.16.840.1.036225.3.579.2 .903 1959 Unknown [id number] 2.16.840.1.918071.3.579.2 .903 1959 Unknown [id number] 2.16.840.1.828343.3.579.2 .903 1959 Unknown [id number] 2.16.840.1.502326.3.579.2 .903 1959 Unknown [id number] 2.16.840.1.934846.3.579.2 .903 1959 Unknown [id number] 2.16.840.1.342656.3.579.2 .903 1959 Unknown [id number] 2.16.840.1.685040.3.579.2 .903 1959 Unknown [id number] 2.16.840.1.850164.3.579.2 .90 Private Health Insurance Private Health Insurance [id number] Social History Date Type Detail Facility Start: 12-30-2020 End: 08-12-2022 Tobacco smoking status VAIS Former smoker [facility] Start: 12-30-2020 End: 08-12-2022 Tobacco use and exposure Never used [facility] Start: 12-30-2020 End: 10-24-2023 Alcohol intake Current drinker of alcohol (finding) [facility] Start: 12-25-2020 End: 08-25-2022 History SDOH Alcohol Frequency 2 [facility] Start: 12-25-2020 End: 02-17-2021 History SDOH Alcohol Std Drinks 1 [facility] Start: 12-25-2020 Tobacco Comment QUIT IN 1999 [facility] Start: 1960 [facility] Start: 01-03-2022 End: 05-16-2023 Exposure to SARS-CoV-2 (event) Not sure [facility] Start: 04-20-2022 End: 04-28-2023 Former smoker Former smoker [facility] Goals Date Patient Goal Desired Activity /State Personal health goal Functional Status Date Assessment Result Facility NEGATED: Highlighted row Functional performance Functional status health issues are not documented Disease [facility] Work Phone: Mental Status Date Assessment Result Facility NEGATED: Highlighted row Cognitive function [Interpretation] Cognitive status health issues are not documented Disease [facility] Work Phone: Clinical Notes 02-11-2010 to 11-21-2023 Elizabeth Dumas RT(R) - 10/24/2023 2:30 PM Walt Heath APRN.[employer] - 10/24/2023 11:20 AM Ashley Hernández MD - 09/26/2023 3:53 PM Evi Augustine RN - 09/26/2023 3:00 PM EST Note Date & Type Note Facility 11-21-2023 Note HNO ID: [id number] Author: FREDERIC BARTH, DO Service: ? Author Type: Anesthesiologist Type: Progress Notes Filed: 11/21/2023 11:21 Note Text: THE [facility] [place] November 21, 2023 Oniel Norman is a 62 year old disabled x 20 years who lives alone in [place], [place]. She was referred by Walt Carrion [address] [place] [address]. Chief complaint: Lower back pain SUBJECTIVE: Fell twice in February 2023 due to tripping over bed and incident with dog, sustaining fractures of ribs and lumbar spine. Underwent PLF of L1-4 on 05/06/[address] Ed Kenney. Continues to have left sided burning, achy pain with radiation down left leg. No right sided pain. Worsens with prolonged sitting and activity. Multiple MRI and CT scan without structural abnormalities. 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 Received 3 injections, 2 left, 1 right. No improvements. Has tried percocet with improvement, but patient does not to take it. Tylenol, gabapentin, tizanidine without relief. NSAID contraindicated due to other medical conditions. Currently on lyrica and trazadone. Has not tried physical therapy, aquatherapy, massages, chiropractor. Has significant impairments in daily living due to pain. Disable for 20 years knee and hip problems and CAD (11 heart attacks). Spine Red Flag Oniel Norman has no red flag symptoms. Anesthesia: N Schizophrenia: N : Not currently, but yes in the past CHF: Y, HFpEF with EF of 64% Uncontrolled HTN: N Recent OK: N, none within past year Arrythmias: N Afib: N Hyperthyroid: N Aortic Stenosis: N Liver Failure: N Increased ICP: N Average pain over the last 7 days: 08/23 Previous pain treatments: medications, surgery, injections Functional Limitations: The patient has been unable to work since 2002. Time spent reclining is 7 hours/day (includes time in bed, recliner, sofa, ottoman, etc.). Wellness: How would you describe your diet: Fair How many days a week do you exercise: 0 How many hours do you sleep a night: 7 Emotional Symptoms: include sadness, depression, crying spells, anxiety, frustration, irritability, and anger The patient has loss of interest, energy, libido, and sleep The patient denies suicidal ideation. Non-medical stresses: None Family involvement: is appropriate/helpful and supportive Financial Status: currently on disability income Allergies: Reviewed in the EMR Current Medications: Reviewed in the EMR PAST MEDICAL HISTORY Diagnosis Date Acute myocardial infarction, unspecified site 08/27/2001 Myocardial Infarction Bipolar disorder, unspecified (HCC) Compression fracture of L3 vertebra (HCC) Coronary artery disease Coronary atherosclerosis due to lipid rich plaque Depressive disorder, not elsewhere classified Generalized osteoarthrosis, unspecified site Hypertension Leg swelling Osteoporosis, unspecified PAST SURGICAL HISTORY Procedure Laterality Date CORONARY ARTERY BYP W/VEIN AND ARTERY GRAFT 4 VEIN PAST SURGICAL HISTORY OF menisectomy left knee PAST SURGICAL HISTORY OF arthroscopy both knees 3 times PAST SURGICAL HISTORY OF bunion right great toe repair PAST SURGICAL HISTORY OF Right hip PAST SURGICAL HISTORY OF Bilateral foot surgery STENT PLACEMENT 4 stents, unsucessful Psychiatric History: Bipolar disorder and anxiety Social History Tobacco Use Smoking status: Former Packs/day: 1.00 Years: 20.00 Additional pack years: 0.00 Total pack years: 20.00 Types: Cigarettes Quit date: 08/27/2001 Years since quittin.2 Smokeless tobacco: Never Tobacco comments: d/c 08/27/01 Vaping Use Vaping Use: Never used Substance Use Topics Alcohol use: Yes Comment: occ wine Drug use: No Substance use: She has not used tobacco since 2003. Drinks socially. No history of significant alcohol use Drug use: There is no history of recreational substance use. . Family History FAMILY HISTORY Problem Relation Age of Onset Hypertension Mother Heart Mother Heart Attack Mother S/p PCI/CABG Hyperlipidemia Mother Heart Failure Mother Hypertension Father Heart Father PPM Stroke Sister Heart Attack Brother Heart Attack Maternal Grandmother Diabetes Paternal Grandmother None Other no family h/o breast cancer Heart Maternal Uncle CABG ROS was positive for: Recent weight gain 30 pounds over past year) Fatigue Difficulty walking Swelling of the ankles every day Persistent pain in joints Back pain All of the other systems reviewed were negative. OBJECTIVE: PHYSICAL EXAM: GENERAL APPEARANCE: Well appearing, well-hydrated, well nourished and alert SKIN: Head, neck, trunk, and extremities dry, intact and without lesions NECK: negative findings: no asymmetry or scars BACK: tender to light palpation over left l (more content not included)... [facility] 11-09-2023 Note HNO ID: [id number] Author: Ernesto Pressley RT(R) Service: Radiology Author Type: Technologist Type: Progress Notes Filed: 11/09/2023 3:22 PM Note Text: Radiology Service Progress Note PATIENT NAME: Oniel Norman DATE OF SERVICE: November 09, 2023 TIME: 3:22 PM PATIENT IDENTITY VERIFICATION COMPLETED USING TWO (2) IDENTIFIERS: Name and Date of confirmed by patient verbally. FALL SCREENING: Has the patient had 2 falls in the last year or 1 fall with injury or currently using an Ambulatory Assistive Device (Walker, Cane, Wheelchair, Crutches, etc.)? No PATIENT GENDER DATA: Female. status: : No status: NO. PATIENT RELEVANT IMPLANT DATA REVIEWED: Not Applicable RADIOLOGY DEPARTMENT: MR; Exam(s) Completed: Lower MSK: SI Joints PERIPHERAL IV DATA: Not applicable SIGNED BY: RT Deven(R) November 09, 2023 3:22 PM [facility] 10-24-2023 Note HNO ID: [id number] Author: Elizabeth Dumas RT(R) Service: Radiology Author Type: Technologist Type: Progress Notes Filed: 10/24/2023 2:18 PM Note Text: Radiology Service Progress Note PATIENT NAME: Oniel Norman DATE OF SERVICE: October 24, 2023 TIME: 2:17 PM PATIENT IDENTITY VERIFICATION COMPLETED USING TWO (2) IDENTIFIERS: Name and Date of confirmed by patient verbally. FALL SCREENING: Has the patient had 2 falls in the last year or 1 fall with injury or currently using an Ambulatory Assistive Device (Walker, Cane, Wheelchair, Crutches, etc.)? No PATIENT GENDER DATA: Female. status: : No status: NO. PATIENT RELEVANT IMPLANT DATA REVIEWED: Not Applicable RADIOLOGY DEPARTMENT: General X-ray: Exam(s) Completed: Spine X-Ray(s): Sacrum/Coccyx PERIPHERAL IV DATA: Not applicable SIGNED BY: RT Zaria(R) October 24, 2023 2:[address] [facility] 10-24-2023 Note HNO ID: [id number] Author: NORMA NARAYANAN PA-C Service: ? Author Type: Physician [employer] Draftsman Type: Progress Notes Filed: 11/28/2023 08:33 Note Text: Orthopedic and Rheumatologic [place] [facility] of Rheumatic [facility] Immunologic Diseases New Patient Date of Service: 10/24/2023 Patient: Oniel Norman Medical Record: [id number] Primary Care Physician: Liliya Lara MD Referring Physician: Walt Carrion Last Rheumatology visit: None at [facility] This consult was requested by the doctor listed for an opinion regarding the chief complaint listed below, and my final recommendations will be communicated to the requesting health care provider by way of the shared medical record for internal providers or letter via the U[employer] Postal Service for external providers. SUBJECTIVE CC: Postacute sacroiliac pain History of Present Illness Patient is a 62 year-old female presenting for evaluation of postacute sacroiliac pain. Patient is the primary historian. Patient has a significant past medical history of osteoarthritis (OA), chronic heart failure with preserved ejection fraction post-CABGx3, hyperlipidemia, hypertension, and bipolar disorder Relevant Serology Results: none Current Pertinent Medications: Past Rheumatologic Medications: Medication Length of Use Reason for Discontinuation states she was diagnosed with RA in her 20's Patient reports first experiencing lumbar back pain in high school Denies experiencing an eliciting event, traumatic injury, or viral prodrome to account for pain onset Noted associated prolonged morning joint stiffness Symptoms were suboptimally managed with NSAID use and rest Denies enrollment in Physical Therapy to date to address symptoms States that pain and associated symptoms have incrementally progressed since onset Established care with primary care physician, Dr. Rodríguez Steele, on 11/17/2022 Discussed axial symptoms and plain films were obtained Due to concern of ankylosing spondylitis (), patient was referred to Rheumatology for further evaluation Endorses current symptoms: Joint pain Joints involved: lumbar spine and sacroiliac joints Pain on a scale of 0-10: 5 Quality of pain: dull achy Continuous Worse in the morning Joint stiffness: 30 minutes Exacerbating factors: physical overuse Alleviating factors: Naproxen Fatigue Denies: History of or symptoms consistent with inflammatory eye disease History of or symptoms consistent with inflammatory bowel disease Dactylitis Enthesitis Limitations in axial or peripheral joint mobility Nail ridging, pitting, or dystrophy History of psoriasis Joint swelling History of nephrolithiasis Rash Fever Dyspnea Chest pain History of congestive heart failure Personal or family history of demyelinating disease (ie multiple sclerosis) Functional status: good Osteoporosis diagnosed Endorses current symptoms: Joint pain Joints involved: Pain on a scale of 0-10: Quality of pain: Not dependent on time of day Continuous Joint stiffness: Exacerbating factors: Alleviating factors: Denies: Limitations in joint mobility secondary to pain or contracture Joint swelling Myalgias Muscular weakness Functional status: Denies any recent infections, hospitalizations, new medications, or new medical conditions History of joint injuries/fractures: Compression fracture of L3 Fractured ribs History of joint replacements/surgeries: Left shoulder total reverse replacement Right and left bunionectomy Right and left total hip and knee arthroplasties Right and left total total total arthroplasties L1-L4 lumbar fusion: 2022 Ambulation status/assistive devices: stable without assistance Current Outpatient Medications on File Prior to Visit Medication Sig predniSONE (DELTASONE) 50 mg Take one 50 mg tablet 13 hours prior, one 50 mg tablet 7 hours prior, and one 50 mg tablet 1 hour prior to injection diphenhydrAMINE (BENADRYL) 50 mg capsule Take 50 mg one hour prior to injection traZODone (DESYREL) 100 mg tablet Take 100 mg by mouth daily at bedtime. 2 tabs at bedtime escitalopram oxalate (LEXAPRO) 5 mg tablet Take 5 mg by mouth once daily. vit B complex no.12/niacin,B3, (VITAMIN B COMPLEX NO.12-NIACIN ORAL) Take by mouth once daily. multivitamin with minerals (HAIR,SKIN AND NAILS ORAL) Take by mouth once daily. bumetanide (BUMEX) 2 mg tablet Take 2 mg by mouth once daily. lisinopril 2.5 mg tablet Takes one-half tablet by mouth daily lamoTRIgine (LAMICTAL) 200 mg tablet Take 200 mg by mouth once daily. oxyCODONE-acetaminophen (PERCOCET) 5-325 mg tablet Take 1 tablet by mouth every 4 hours as needed for Pain. isosorbide mononitrate ER (IMDUR) 30 mg 24 hr tablet Take 1 tablet by mouth once daily. take one tablet daily atorvastatin 80 mg tablet Take 80 mg by mouth once daily. pantoprazole 40 mg tablet Take 40 mg by mouth once daily. Aspiri (more content not included)... [facility] 10-24-2023 History of Present illness Narrative Radiology Service Progress Note PATIENT NAME: Oniel Norman DATE OF SERVICE: October 24, 2023 TIME: 2:17 PM PATIENT IDENTITY VERIFICATION COMPLETED USING TWO (2) IDENTIFIERS: Name and Date of confirmed by patient verbally. FALL SCREENING: Has the patient had 2 falls in the last year or 1 fall with injury or currently using an Ambulatory Assistive Device (Walker, Cane, Wheelchair, Crutches, etc.)? No PATIENT GENDER DATA: Female. status: : No status: NO. PATIENT RELEVANT IMPLANT DATA REVIEWED: Not Applicable RADIOLOGY DEPARTMENT: General X-ray: Exam(s) Completed: Spine X-Ray(s): Sacrum/Coccyx PERIPHERAL IV DATA: Not applicable SIGNED BY: RT Zaria(R) October 24, 2023 2:17 PM documented in this encounter [facility] 10-24-2023 Note HNO ID: [id number] Author: Walt Carrion APRN.PUNCH HAND Service: ? Author Type: Nurse Practitioner Type: Progress Notes Filed: 10/26/2023 3:05 PM Note Text: SPINE SURGERY ESTABLISHED VISIT This is an in-person visit. DATE OF SERVICE: 10/24/2023 DATE OF LAST VISIT: 09/06/2023 SUBJECTIVE: HPI:Oniel Norman is a 62 year old female presenting alone, for follow up had SI injection on 09/26/2023 which she did not get relief from. Patient states that provider was not able to get the needle into her joint where he wanted for injection and therefore steroid was sprayed around joint. Patient tearful when expressing her frustrations with her continuing pain and failure of treatments. Patient states she has tried many conservative treatments with little to no relief in the past. She has had ever since her surgery she has not been able to get rid of this pain. She also stated that she did not do PT after her last spine surgery. She also has a significant ortho surgical history which includes: Left shoulder total reverse replacement Right and left total hip and knee arthroplasties Right and left total total total arthroplasties She states she has had success with percocet in the past but does not currently take that. Other treatments she has tried include mobic celebrex, gabapentin, SI inj, oral steroids, PT over a year ago, epidural injections, heat ice, Tylenol with no relief of symptoms MEDICATIONS: predniSONE (DELTASONE) 50 mg Take one 50 mg tablet 13 hours prior, one 50 mg tablet 7 hours prior, and one 50 mg tablet 1 hour prior to injection diphenhydrAMINE (BENADRYL) 50 mg capsule Take 50 mg one hour prior to injection traZODone (DESYREL) 100 mg tablet Take 100 mg by mouth daily at bedtime. 2 tabs at bedtime escitalopram oxalate (LEXAPRO) 5 mg tablet Take 5 mg by mouth once daily. vit B complex no.12/niacin,B3, (VITAMIN B COMPLEX NO.12-NIACIN ORAL) Take by mouth once daily. multivitamin with minerals (HAIR,SKIN AND NAILS ORAL) Take by mouth once daily. bumetanide (BUMEX) 2 mg tablet Take 2 mg by mouth once daily. lisinopril 2.5 mg tablet Takes one-half tablet by mouth daily lamoTRIgine (LAMICTAL) 200 mg tablet Take 200 mg by mouth once daily. oxyCODONE-acetaminophen (PERCOCET) 5-325 mg tablet Take 1 tablet by mouth every 4 hours as needed for Pain. isosorbide mononitrate ER (IMDUR) 30 mg 24 hr tablet Take 1 tablet by mouth once daily. take one tablet daily atorvastatin 80 mg tablet Take 80 mg by mouth once daily. pantoprazole 40 mg tablet Take 40 mg by mouth once daily. Aspirin 81 mg tab Take 81 mg by mouth once daily. Patient Entered Questionnaires Spine Questions 09/01/2023 Pain Location: Lower back Pain Duration: 6 months - 1 year Pain over last 6 months: At least half the days in the past 6 months Symptoms from neck/cervical spine: No Employment Status: Disabled for reasons other than back pain Involved in law suit/legal claim: No PROMIS Score Percentiles Physical Health 09/01/2023 Physical Function Percentile 4 Sleep Percentile 4 Fatigue Percentile 18* Pain Interference Percentile 1 PROMIS SOCIAL ROLE SCORE 09/01/2023 Social Role Satisfaction Percentile 10 PROMIS Global Health Scale 09/01/2023 Physical Health Percentile 10 Mental Health Percentile 53 Percentiles provide an indication of how the patient's score ranks in relation to the general population. Higher percentile rankings indicate better function/quality of life. 50th percentile is the average of the general population and indicates half of respondents had a worse score. Depression Screening: PHQ-9 09/01/2023 Score 11 PHQ-9 Self-harm Question 09/01/2023 Thoughts that you would be better off , or of hurting yourself in some way 0 PHQ-9 Self-Harm (Item 9) response options: 0 Not at all 1 Several days 2 More than half the days 3 Nearly every day PHQ-9 Levels: 0-4 No to mild depression 5-9 Mild depression 10-14 Moderate depression 15-19 Moderately severe depression 20-27 Severe depression OBJECTIVE: PHYSICAL EXAM: Unchanged from prior TTP over SI joints. ASSESSMENT/PLAN (M46.1) Sacroiliitis (HCC) (primary encounter diagnosis) (R52, G89.29) Chronic pain of multiple sites (Z98.1) S/P lumbar fusion Oniel Norman will continue with medical management of his/her condition and has a condition that requires further workup. Discussed with the patient that I do think she cannot have a systemic problem rheumatologic in nature and would like her to see rheumatology for further workup. Discussed with her that she has had multiple pain points that are just not her SI joint and back. I will also place an order for some baseline lab work for inflammation. I discussed with her that rheumatology can look at her holistically from a metabolic bone standpoint and they have a variety of other treatment options to treat inflammatory processes such a (more content not included)... [facility] 10-24-2023 History of Present illness Narrative SPINE SURGERY ESTABLISHED VISIT This is an in-person visit. DATE OF SERVICE: 10/24/2023 DATE OF LAST VISIT: 09/06/2023 SUBJECTIVE: HPI:Oniel Norman is a 62 year old female presenting alone, for follow up had SI injection on 09/26/2023 \which she did not get relief from. Patient states that provider was not able to get the needle into her joint where he wanted for injection and therefore steroid was sprayed around joint. Patient tearful when expressing her frustrations with her continuing pain and failure of treatments. Patient states she has tried many conservative treatments with little to no relief in the past. She has had ever since her surgery she has not been able to get rid of this pain. She also stated that she did not do PT after her last spine surgery. She also has a significant ortho surgical history which includes: Left shoulder total reverse replacement Right and left total hip and knee arthroplasties Right and left total total total arthroplasties She states she has had success with percocet in the past but does not currently take that. Other treatments she has tried include mobic celebrex, gabapentin, SI inj, oral steroids, PT over a year ago, epidural injections, heat ice, Tylenol with no relief of symptoms MEDICATIONS: predniSONE (DELTASONE) 50 mg Take one 50 mg tablet 13 hours prior, one 50 mg tablet 7 hours prior, and one 50 mg tablet 1 hour prior to injection diphenhydrAMINE (BENADRYL) 50 mg capsule Take 50 mg one hour prior to injection traZODone (DESYREL) 100 mg tablet Take 100 mg by mouth daily at bedtime. 2 tabs at bedtime escitalopram oxalate (LEXAPRO) 5 mg tablet Take 5 mg by mouth once daily. vit B complex no.12/niacin,B3, (VITAMIN B COMPLEX NO.12-NIACIN ORAL) Take by mouth once daily. multivitamin with minerals (HAIR,SKIN AND NAILS ORAL) Take by mouth once daily. bumetanide (BUMEX) 2 mg tablet Take 2 mg by mouth once daily. lisinopril 2.5 mg tablet Takes one-half tablet by mouth daily lamoTRIgine (LAMICTAL) 200 mg tablet Take 200 mg by mouth once daily. oxyCODONE-acetaminophen (PERCOCET) 5-325 mg tablet Take 1 tablet by mouth every 4 hours as needed for Pain. isosorbide mononitrate ER (IMDUR) 30 mg 24 hr tablet Take 1 tablet by mouth once daily. take one tablet daily atorvastatin 80 mg tablet Take 80 mg by mouth once daily. pantoprazole 40 mg tablet Take 40 mg by mouth once daily. Aspirin 81 mg tab Take 81 mg by mouth once daily. Patient Entered Questionnaires Spine Questions 09/01/2023 Pain Location: Lower back Pain Duration: 6 months - 1 year Pain over last 6 months: At least half the days in the past 6 months Symptoms from neck/cervical spine: No Employment Status: Disabled for reasons other than back pain Involved in law suit/legal claim: No PROMIS Score Percentiles Physical Health 09/01/2023 Physical Function Percentile 4 Sleep Percentile 4 Fatigue Percentile 18* Pain Interference Percentile 1 PROMIS SOCIAL ROLE SCORE 09/01/2023 Social Role Satisfaction Percentile 10 PROMIS Global Health Scale 09/01/2023 Physical Health Percentile 10 Mental Health Percentile 53 Percentiles provide an indication of how the patient's score ranks in relation to the general population. Higher percentile rankings indicate better function/quality of life. 50th percentile is the average of the general population and indicates half of respondents had a worse score. Depression Screening: PHQ-9 09/01/2023 Score 11 PHQ-9 Self-harm Question 09/01/2023 Thoughts that you would be better off , or of hurting yourself in some way 0 PHQ-9 Self-Harm (Item 9) response options: 0 Not at all 1 Several days 2 More than half the days 3 Nearly every day PHQ-9 Levels: 0-4 No to mild depression 5-9 Mild depression 10-14 Moderate depression 15-19 Moderately severe depression 20-27 Severe depression OBJECTIVE: PHYSICAL EXAM: Unchanged from prior TTP over SI joints. ASSESSMENT/PLAN (M46.1) Sacroiliitis (HCC) (primary encounter diagnosis) (R52, G89.29) Chronic pain of multiple sites (Z98.1) S/P lumbar fusion Oniel Norman will continue with medical management of his/her condition and has a condition that requires further workup. Discussed with the patient that I do think she cannot have a systemic problem rheumatologic in nature and would like her to see rheumatology for further workup. Discussed with her that she has had multiple pain points that are just not her SI joint and back. I will also place an order for some baseline lab work for inflammation. I discussed with her that rheumatology can look at her holistically from a metabolic bone standpoint and they have a variety of other treatment options to treat inflammatory processes such as arthritis. Also discussed chronic pain recovery center with the patient discussed with her that she is currently not a surgical candidate as her imaging does not align with her symptoms although she has exacerbated multiple avenues of conservative treatment I do believe that the chronic pain recovery center could put a fresh set of eyes on her pain as well as a treatment plan. Patient agreeable to this plan and we will follow-up after she sees the chronic pain recovery team and rheumatology. All questions answered patient appreciative of appointment. 1. Medications: Continue current medications Labs: ESR Sed Rate Consults: Chronic Pain Rehabilitation Therapy (CPRP) Rheumatology Consult for autoimmune disorder 2. Follow up: after Rheum work up Imaging Ordered: X-ray sacrum: Degenerative changes at the spine, bilateral sacroiliac joints and pubic symphysis. I spent a total of 28 minutes on the date of the service which included preparing to see the patient, [id number] patient care, completing clinical documentation, obtaining and/or reviewing separately obtained history, performing a medically appropriate examination, counseling and educating the patient/family/caregiver, independently interpreting results (not separately reported), and communicating results to the patient/family/caregiver. SIGNATURE: Walt Carrion APRN.CNP PATIENT NAME: Oniel Norman DATE: October 24, 2023 TIME: 9:24 AM PAGER: documented in this encounter [facility] 09-26-2023 Note HNO ID: [id number] Author: Ashley Gavin MD Service: ? Author Type: Physician Type: Procedures Filed: 09/27/2023 3:38 PM Note Text: Procedure Note Sacroiliac Joint Injection Procedure Date: 09/26/2023 Oniel Norman Date of : 1960 Attending: Ashley Gavin Fellow: Magnus Varela MD PREOPERATIVE DIAGNOSIS: Patient Active Hospital Problem List: No active hospital problems. POSTOPERATIVE DIAGNOSIS: Same OPERATION PERFORMED: Sacroiliac joint injection under fluoroscopic guidance SIDE: LEFT IV SEDATION #1: Midazolam: 0 mg IV SEDATION #2 Fentanyl: 0 mcg sublingual Klonopin 0.5 mg was given ESTIMATED BLOOD LOSS: None FLUIDS: 0 of: 0.9% NaCl FLUOROSCOPY WAS USED. TOTAL SEDATION TIME: 0 minutes. INCISION/PROCEDURE START TIME: 1532 INCISION CLOSE/PROCEDURE END TIME: 1546 INDICATIONS FOR PROCEDURE: This is a 62 year old year old female with a clinical picture consistent with No diagnosis found. sacroiliac joint pain. PROCEDURE AND FINDINGS: The patient was greeted in the pre procedure holding area. The risk, benefits and alternatives to the procedure were again reviewed with the patient and written informed consent was placed in the chart. Prior to the procedure a time out was completed, verifying correct patient, procedure, site, positioning, and implants and/or special equipment. An IV line was not placed. The patient was taken to the procedure room and positioned prone on the fluoroscopy table. Routine monitors were applied including EKG leads, blood pressure cuff, and pulse oximetry. A hockey scout film was taken to identify the correct level. The skin was prepped and draped in the usual sterile fashion. The overlying skin and subcutaneous tissue was anesthetized using a 25- gauge 1-1/2 inch needle with 1% preservative-free lidocaine for a total volume of 3 mls. Then a 22-gauge 3.5-inch Quincke spinal needle was advanced into the joint space under intermittent fluoroscopic guidance. Needle position was confirmed on both AP and lateral views. Then 1.0 mls of: Omnipaque 240 mg/ml dye was injected under AP view: Dye pattern revealed intraarticular spread. There was no evidence of intravascular uptake. Then 2.0 mls containing 1% lidocaine and 40 mg of Depo medrol was injected without incident. The needle was re- styletted and removed. The needle insertion site was dressed appropriately. The patient was taken to the recovery room where they were monitored for a brief period of time. She tolerated the procedure well and were discharged home in stable condition with post procedural instructions. Prior to the procedure, the patient reported a pain score of 10 out of 10. The patient was given a 24-hour diagnostic block sheet to return. Follow-up will be Clinic Visit. COMPLICATIONS: None Comment(s): None [facility] 09-26-2023 Note HNO ID: [id number] Author: Evi East RN Service: ? Author Type: Registered Nurse Type: Progress Notes Filed: 09/27/2023 3:38 PM Note Text: NON-SEDATION PROCEDURE FORM September 26, 2023 7:55 AM Room Number: [id number] Fluoroscopy suite ID verified: Yes Arrived via indpendent ambulation 62 year old Weight: Last 2 Encounter Wt Readings: Date: Wt: 09/06/2023 86.6 kg (191 lb) 04/28/2023 85.3 kg (188 lb) Indication for Procedure (Associated Diagnoses): low back pain Procedure ordered: Intra-articular Sacroiliac joint injection: Left Verified by patient by: Dr. Gavin Cranberry Sorter for post spine injection procedure: Yes Patient mentation: alert, oriented, cooperative Yes Allergies: ALLERGIES Allergen Reactions Adhesive Rash, Itching Plastic bandaids Iv Dye [Iodine] Anaphylaxis Neosporin [Neomycin* Rash, Itching Penicillins Other: See Comments convulsions Pre-Procedural medication orders:clonazePAM orally disintegrating (KLONOPIN WAFER) 0.5 mg disintegrating tablet given as prescribed Patient tolerated well Documented in med note. Pre-procedural orders Discharge / transfer when discharge assessment criteria met: Alert and oriented X3, moves all extremities X4, vital signs stable, injection site flat and dry. Able to ambulate as prior to procedure Sign In Communication: Allergies and medications reviewed. Site of the procedure confirmed:Yes Informed Consent Complete: Yes Relevent diagnostic tests reviewed (i.e., use of anticoagulants, INR, platelet count, imaging, etc.) Yes Critical Information: Proceduralist: Dr. Romaine Varela MD PROCEDURAL TIME OUT: Time out verification includes:Audible time-out documented: Yes. Time: 1525 Correct Patient: Two Patient Identifiers Correct side/ site marking, prep and dry time (If applicable) Accurate Consent Correct Procedure Correct Positioning Safety Precautions Based on Patient History or Medication Team agrees: correct patient, correct procedure, correct site, correct position UNIVERSAL PROTOCOL / SAFETY CHECKLIST Procedure to be Performed: Intra-articular Sacroiliac joint injection: Left Sign In: A Moment of CARE was completed. Personnel directly involved with the procedure wore the appropriate PPE (Personal Protective Equipment). No special equipment needed. Patient/Surrogate Stated/Verified: PATIENT VERIFIED(optional for EMERGENT procedures): Patient name, Date of , Relevant allergies, and The intended procedure Time Out Communication: Intended patient and procedure match the source documents. Consent documented and matches the intended procedure. Relevant labs, photos, and/or imaging studies have been reviewed. Correct side/site marked and visible. Medications required for procedure verified. No fire risk assessment and interventions applicable. No implant(s) inserted. Sign Out: SIGN OUT (optional for EMERGENT procedures): No specimen collected. Mana Valdivia RN Procedure Start time: 1532 Monitors On: NIBP Yes Pulse Oximetry Yes Site Prep: Duraprep Procedure Events: Vital Signs documented in activity above. Medications given, interventions, and notes: Time: BP Pulse R O2 Sat 1529 121/68 67 18 95 1535 122/61 68 18 96 1540 131/69 56 18 95 1545 130/65 64 18 96 Omnipaque (iohexol) 300mg/mL SDV volume 50 mL, Lidocaine 1% 10mg/mL SDV volume 30 mL Preservative-Free, and Depo-medrol 40mg/mL x2 Total Fluroscopy time:: 45 seconds. Procedure Finish Time:1546 SIGN-OUT Dressings Applied to site(s): hypoallergenic transparent Tegaderm with absorbent nonadherent pad Aguirre concerns for recovery and management of patient reviewed verbally prior to patient leaving procedure room. Post- Procedure Events: Vital Signs documented as below. Medications given, interventions, and notes as needed: Yes Time: BP Pulse R O2 Sat Pain scale 1550 106/80 58 18 97 9 AMBULATORY PATIENT EDUCATION TOPIC: PROCEDURE / SURGERY: Post Procedure Teaching: Symptom Management and Wound Care READINESS TO LEARN COGNITIVE ABILITY: Alert and oriented MOTIVATION TO LEARN: Eager FAMILY SUPPORT: Unable to assess - Family not present INSTRUCTION PROVIDED TO: Patient PATIENT LEARNS BEST BY: Individual Instruction Written Instruction - Hand-outs Verbal Instruction FACTORS AFFECTING LEARNING: None PHYSICAL LIMITATIONS AFFECTING LEARNING: None LEARNING RESPONSE METHOD OF INSTRUCTION: Teach Back post procedure instructions Individual instruction Written instruction - handouts Verbal instruction PATIENT / FAMILY RESPONSE: Verbalizes understanding of: POST-PROCEDURE INSTRUCTIONS-Correct actions to take to reduce post procedure complications Information received as demonstrated by interest and questions FOLLOW-UP PLAN: Patient instructed to call with any further issues SUPPLEMENTAL MATERIAL: Procedure discharge instructions REFERRAL (RECOMMENDATION): None Electronicall (more content not included)... [facility] 09-26-2023 Procedure note Procedure Note Sacroiliac Joint Injection Procedure Date: 09/26/2023 Oniel Norman Date of : 1960 Attending: Ashley Gavin Fellow: Magnus Varela MD PREOPERATIVE DIAGNOSIS: Patient Active Hospital Problem List: No active hospital problems. POSTOPERATIVE DIAGNOSIS: Same OPERATION PERFORMED: Sacroiliac joint injection under fluoroscopic guidance SIDE: LEFT IV SEDATION #1: Midazolam: 0 mg IV SEDATION #2 Fentanyl: 0 mcg sublingual Klonopin 0.5 mg was given ESTIMATED BLOOD LOSS: None FLUIDS: 0 of: 0.9% NaCl FLUOROSCOPY WAS USED. TOTAL SEDATION TIME: 0 minutes. INCISION/PROCEDURE START TIME: 1532 INCISION CLOSE/PROCEDURE END TIME: 1546 INDICATIONS FOR PROCEDURE: This is a 62 year old year old female with a clinical picture consistent with No diagnosis found. sacroiliac joint pain. PROCEDURE AND FINDINGS: The patient was greeted in the pre procedure holding area. The risk, benefits and alternatives to the procedure were again reviewed with the patient and written informed consent was placed in the chart. Prior to the procedure a time out was completed, verifying correct patient, procedure, site, positioning, and implants and/or special equipment. An IV line was not placed. The patient was taken to the procedure room and positioned prone on the fluoroscopy table. Routine monitors were applied including EKG leads, blood pressure cuff, and pulse oximetry. A hockey scout film was taken to identify the correct level. The skin was prepped and draped in the usual sterile fashion. The overlying skin and subcutaneous tissue was anesthetized using a 25- gauge 1-1/2 inch needle with 1% preservative-free lidocaine for a total volume of 3 mls. Then a 22-gauge 3.5-inch Quincke spinal needle was advanced into the joint space under intermittent fluoroscopic guidance. Needle position was confirmed on both AP and lateral views. Then 1.0 mls of: Omnipaque 240 mg/ml dye was injected under AP view: Dye pattern revealed intraarticular spread. There was no evidence of intravascular uptake. Then 2.0 mls containing 1% lidocaine and 40 mg of Depo medrol was injected without incident. The needle was re- styletted and removed. The needle insertion site was dressed appropriately. The patient was taken to the recovery room where they were monitored for a brief period of time. She tolerated the procedure well and were discharged home in stable condition with post procedural instructions. Prior to the procedure, the patient reported a pain score of 10 out of 10. The patient was given a 24-hour diagnostic block sheet to return. Follow-up will be Clinic Visit. COMPLICATIONS: None Comment(s): None documented in this encounter [facility] 09-26-2023 History of Present illness Narrative NON-SEDATION PROCEDURE FORM September 26, 2023 7:55 AM Room Number: [id number] Fluoroscopy suite ID verified: Yes Arrived via indpendent ambulation 62 year old Weight: Last 2 Encounter Wt Readings: Date: Wt: 09/06/2023 86.6 kg (191 lb) 04/28/2023 85.3 kg (188 lb) Indication for Procedure (Associated Diagnoses): low back pain Procedure ordered: Intra-articular Sacroiliac joint injection: Left Verified by patient by: Dr. Gavin Cranberry Sorter for post spine injection procedure: Yes Patient mentation: alert, oriented, cooperative Yes Allergies: ALLERGIES Allergen Reactions Adhesive Rash, Itching Plastic bandaids Iv Dye [Iodine] Anaphylaxis Neosporin [Neomycin* Rash, Itching Penicillins Other: See Comments convulsions Pre-Procedural medication orders:clonazePAM orally disintegrating (KLONOPIN WAFER) 0.5 mg disintegrating tablet given as prescribed Patient tolerated well Documented in med note. Pre-procedural orders Discharge / transfer when discharge assessment criteria met: Alert and oriented X3, moves all extremities X4, vital signs stable, injection site flat and dry. Able to ambulate as prior to procedure Sign In Communication: Allergies and medications reviewed. Site of the procedure confirmed:Yes Informed Consent Complete: Yes Relevent diagnostic tests reviewed (i.e., use of anticoagulants, INR, platelet count, imaging, etc.) Yes Critical Information: Proceduralist: Dr. Romaine Varela MD PROCEDURAL TIME OUT: Time out verification includes:Audible time-out documented: Yes. Time: 1525 Correct Patient: Two Patient Identifiers Correct side/ site marking, prep and dry time (If applicable) Accurate Consent Correct Procedure Correct Positioning Safety Precautions Based on Patient History or Medication Team agrees: correct patient, correct procedure, correct site, correct position UNIVERSAL PROTOCOL / SAFETY CHECKLIST Procedure to be Performed: Intra-articular Sacroiliac joint injection: Left Sign In: A Moment of CARE was completed. Personnel directly involved with the procedure wore the appropriate PPE (Personal Protective Equipment). No special equipment needed. Patient/Surrogate Stated/Verified: PATIENT VERIFIED(optional for EMERGENT procedures): Patient name, Date of , Relevant allergies, and The intended procedure Time Out Communication: Intended patient and procedure match the source documents. Consent documented and matches the intended procedure. Relevant labs, photos, and/or imaging studies have been reviewed. Correct side/site marked and visible. Medications required for procedure verified. No fire risk assessment and interventions applicable. No implant(s) inserted. Sign Out: SIGN OUT (optional for EMERGENT procedures): No specimen collected. Mana Valdivia RN Procedure Start time: 1532 Monitors On: NIBP Yes Pulse Oximetry Yes Site Prep: Duraprep Procedure Events: Vital Signs documented in activity above. Medications given, interventions, and notes: Time: BP Pulse R O2 Sat 1529 121/68 67 18 95 1535 122/61 68 18 96 1540 131/69 56 18 95 1545 130/65 64 18 96 Omnipaque (iohexol) 300mg/mL SDV volume 50 mL, Lidocaine 1% 10mg/mL SDV volume 30 mL Preservative-Free, and Depo-medrol 40mg/mL x2 Total Fluroscopy time:: 45 seconds. Procedure Finish Time:1546 SIGN-OUT Dressings Applied to site(s): hypoallergenic transparent Tegaderm with absorbent nonadherent pad Aguirre concerns for recovery and management of patient reviewed verbally prior to patient leaving procedure room. Post- Procedure Events: Vital Signs documented as below. Medications given, interventions, and notes as needed: Yes Time: BP Pulse R O2 Sat Pain scale 1550 106/80 58 18 97 9 AMBULATORY PATIENT EDUCATION TOPIC: PROCEDURE / SURGERY: Post Procedure Teaching: Symptom Management and Wound Care READINESS TO LEARN COGNITIVE ABILITY: Alert and oriented MOTIVATION TO LEARN: Eager FAMILY SUPPORT: Unable to assess - Family not present INSTRUCTION PROVIDED TO: Patient PATIENT LEARNS BEST BY: Individual Instruction Written Instruction - Hand-outs Verbal Instruction FACTORS AFFECTING LEARNING: None PHYSICAL LIMITATIONS AFFECTING LEARNING: None LEARNING RESPONSE METHOD OF INSTRUCTION: Teach Back post procedure instructions Individual instruction Written instruction - handouts Verbal instruction PATIENT / FAMILY RESPONSE: Verbalizes understanding of: POST-PROCEDURE INSTRUCTIONS-Correct actions to take to reduce post procedure complications Information received as demonstrated by interest and questions FOLLOW-UP PLAN: Patient instructed to call with any further issues SUPPLEMENTAL MATERIAL: Procedure discharge instructions REFERRAL (RECOMMENDATION): None Electronically Signed By Evi East RN In Department[facility] Discharge assessment: PAIN SCALE: 9 on a scale of 0-10 (0=none, 10=extreme) Discharge: Verbal and written post procedure instructions given to:patient with stated understanding. Discharge prescriptions given to patient (if applicable). medication use explained to patient with stated understanding (if applicable) Patient Discharge to: Home, in the care of responsible adult: patient and daughter (adult) via indpendent ambulation Other: No Follow up as indicated on order: Ordering Provider Via Office Visit or Virtual Visit: 2-4 weeks with Walt Carrion. Patient reminded to bring pain diary to follow appointment. If follow up appointment indicated on order, patient encouraged to schedule follow up appointment at S70 desk for 2-4 weeks post procedure or by calling [phone], [facility] central scheduling. Discharge as above criteria met: Yes Condition of surgical/injection site at discharge: dry, intact, other: Yes September 26, 2023 Additional notes: Patient without further questions. Discharge time: 1602 documented in this encounter [facility] 09-26-2023 History and physical note UPDATED HISTORY AND PHYSICAL EXAMINATION PATIENT NAME: Oniel Norman SERVICE DATE: 09/26/2023 The History and Physical (completed in the past 30 days) has been reviewed and the patient has been examined. The contents accurately reflect the patient's condition with the following additions or revisions since the H&P was completed. Examination indicates no changes. This H&P can be found in the Electronic Medical Record dated 09/19/23. Patient states she has allergy to Iodine Dye (she had a rash) Currently taking prednisone (50mg 13hr prior, 50mg 7hr prior, and 50mg 1hr prior) and benadryl for premedication Did take ASA again today. PHYSICAL EXAMINATION: VITAL SIGNS: 09/26/23 1427 BP: 114/60 Pulse: (!) 52 Resp: 18 Temp: 36.6 C (97.9 F) TempSrc: Oral SpO2: 98% GENERAL: Well-developed, well-nourished female in no apparent distress with pleasant mood. HEENT: Head is normocephalic/atraumatic. Nares appear normal. Moist mucous membranes without lesions. RESP: Non-labored breathing. CV: Extremities are warm and well-perfused. GI: Soft, NT / ND. SKIN: No rashes, lesions, ulceration or induration in the upper/lower extremities, trunk, or head/neck. PSYCH: Awake, alert and fully oriented. There is no evidence of cognitive or language dysfunction. Appropriate insight. An SIJ injection is considered medically reasonable and necessary because the following conditions are met: - moderate to severe LBP primarily experienced over the anatomical location of the SIJs between the upper level of the iliac crests and gluteal folds AND - LBP duration of 3 months AND - LBP below L5 without radiculopathy AND - Clinical findings and/or imaging do not suggest any other diagnosed or obvious cause of the lumbosacral pain (such as central spinal stenosis, infection, fracture) AND - LBP persists despite a minimum of 4 weeks of conservative therapies. Risk, benefits, and alternatives of surgery explained to patient by surgeon with explicit agreement by patient or patient provider service representative before surgery. SIGNATURE: Magnus Varela MD DATE: September 26, 2023 TIME: 2:44 PM documented in this encounter [facility] 09-26-2023 Nurse Note PATIENT NAME: Oniel Norman 1960 62 year old Current medications and allergies reviewed with patient in visit navigator: Yes Baseline vital signs and pain assessment entered in activity in visit navigator: Yes Cranberry Sorter for post spine injection procedure: Yes First Name: Joyce Relationship: daughter Pre-procedure pain level on 0-10 scale 10 Patient gender: Female. Is there any chance the patient could be ? No. Menstrual Date: Post menopausal Undergone Injection in the past: Yes Time since last PO intake: 09/25/2023 Any history of adverse reaction or unanticipated events when receiving steroids, iodine, or contrast, as commonly used for CT or MR imaging: Yes. Reaction: IVP dye, anaphylaxis Antibiotic/antifungal administered in the last 2 weeks: No Recent flu symptoms: No Noticed any open skin, sores, or rashes: No Undergone any recent serious medical/dental or surgical procedure: No Diabetic: No Fluoroscopy applicable: currently using an Insulin Pump: N/A Blood Thinner (anticoagulants/antiplatelet medications): No Klonopin requested: Yes Signed by: Amol Salazar LPN September 26, 2023 2:24 PM documented in this encounter [facility] 09-21-2023 Miscellaneous Notes Neuro SPINE CARE COORDINATION QUICK NOTE Called and spoke to patient. Dr. Gavin previously prescribed medication (prednisone 50 mg taper) prior to scheduled injection on 09/19/2023 due to patient's allergy history. I will send a message to Dr. Gavin's team to see if they are able/need to prescribe this again. Patient also states that the injection on 09/19/2023 was unsuccessful, which is why she is rescheduled to try again this coming Tuesday. Patient is asking Dr. Brennan what the next steps are if the injection on Tuesday is unable to be completed. We will review with the team. Patient is also asking if there is an antianxiety medication that can be prescribed prior to the injection. I will check with regarding his thoughts on premedicating prior to procedure. Isabelle Daniel RN Chipper Feeder Patient is calling in with questions about her medication prednisone Ph. [phone] documented in this encounter [facility] 09-20-2023 Miscellaneous Notes Neuro SPINE CARE COORDINATION QUICK NOTE 09/19/23 R side completed. Patient to schedule L side - scheduled for 09/26/23 documented in this encounter [facility] 09-19-2023 Note HNO ID: [id number] Author: Evi East RN Service: ? Author Type: Registered Nurse Type: Progress Notes Filed: 09/19/2023 4:59 PM Note Text: NON-SEDATION PROCEDURE FORM September 19, 2023 2:41 PM Room Number: [id number] Fluoroscopy suite ID verified: Yes Arrived via indpendent ambulation 62 year old Weight: Last 2 Encounter Wt Readings: Date: Wt: 09/06/2023 86.6 kg (191 lb) 04/28/2023 85.3 kg (188 lb) Indication for Procedure (Associated Diagnoses): low back pain Procedure ordered: Intra-articular Sacroiliac joint injection: Bilateral Verified by patient by: Dr. Gavin Cranberry Sorter for post spine injection procedure: Yes Patient mentation: alert, oriented, cooperative Yes Allergies: ALLERGIES Allergen Reactions Adhesive Rash, Itching Plastic bandaids Iv Dye [Iodine] Anaphylaxis Neosporin [Neomycin* Rash, Itching Penicillins Other: See Comments convulsions Pre-Procedural medication orders:N/A Documented in med note. Pre-procedural orders Discharge / transfer when discharge assessment criteria met: Alert and oriented X3, moves all extremities X4, vital signs stable, injection site flat and dry. Able to ambulate as prior to procedure Sign In Communication: Allergies and medications reviewed. Site of the procedure confirmed:Yes Informed Consent Complete: Yes Relevent diagnostic tests reviewed (i.e., use of anticoagulants, INR, platelet count, imaging, etc.) Yes Critical Information: Proceduralist: Dr. Romaine Varela MD PROCEDURAL TIME OUT: Time out verification includes:Audible time-out documented: Yes. Time: 1340 Correct Patient: Two Patient Identifiers Correct side/ site marking, prep and dry time (If applicable) Accurate Consent Correct Procedure Correct Positioning Safety Precautions Based on Patient History or Medication Team agrees: correct patient, correct procedure, correct site, correct position UNIVERSAL PROTOCOL / SAFETY CHECKLIST Procedure to be Performed: Intra-articular Sacroiliac joint injection: Bilateral Sign In: A Moment of CARE was completed. Personnel directly involved with the procedure wore the appropriate PPE (Personal Protective Equipment). No special equipment needed. Patient/Surrogate Stated/Verified: PATIENT VERIFIED(optional for EMERGENT procedures): Patient name, Date of , Relevant allergies, and The intended procedure Time Out Communication: Intended patient and procedure match the source documents. Consent documented and matches the intended procedure. Relevant labs, photos, and/or imaging studies have been reviewed. Correct side/site marked and visible. Medications required for procedure verified. Fire risk assessed and interventions discussed. No implant(s) inserted. Sign Out: SIGN OUT (optional for EMERGENT procedures): No specimen collected. All instruments, equipment, possible retained foreign bodies accounted for. Post-procedure follow-up management communicated and Plan of Care Visit completed when applicable. Evi East RN Procedure Start time: 1347 Monitors On: NIBP Yes Pulse Oximetry Yes Site Prep: Duraprep Procedure Events: Vital Signs documented in activity above. Medications given, interventions, and notes: Time: BP Pulse R O2 Sat 1345 128/76 58 18 95 1356 1404 133/75 55 18 96 1414 128/83 54 18 96 1421 124/83 58 18 96 Omnipaque (iohexol) 240mg/mL SDV volume 50 mL, Lidocaine 1% 10mg/mL SDV volume 30 mL Preservative-Free, and Depo-medrol 40mg/mL Total Fluroscopy time:: 70 seconds. Procedure Finish Time: 1425 SIGN-OUT Dressings Applied to site(s): hypoallergenic transparent Tegaderm with absorbent nonadherent pad Aguirre concerns for recovery and management of patient reviewed verbally prior to patient leaving procedure room. Post- Procedure Events: Vital Signs documented as below. Medications given, interventions, and notes as needed: Yes Time: BP Pulse R O2 Sat Pain scale 1435 116/57 66 18 95 9 AMBULATORY PATIENT EDUCATION TOPIC: PROCEDURE / SURGERY: Post Procedure Teaching: Symptom Management and Wound Care READINESS TO LEARN COGNITIVE ABILITY: Alert and oriented MOTIVATION TO LEARN: Interested FAMILY SUPPORT: High - Very involved in pt care INSTRUCTION PROVIDED TO: Patient and Daughter PATIENT LEARNS BEST BY: Individual Instruction Written Instruction - Hand-outs Verbal Instruction FACTORS AFFECTING LEARNING: None PHYSICAL LIMITATIONS AFFECTING LEARNING: None LEARNING RESPONSE METHOD OF INSTRUCTION: Teach Back post procedure instructions Individual instruction Written instruction - handouts Verbal instruction PATIENT / FAMILY RESPONSE: Verbalizes understanding of: POST-PROCEDURE INSTRUCTIONS-Correct actions to take to reduce post procedure complications Information received as demonstrated by interest and questions FOLLOW-UP PLAN: Patient instructed to call with any further issues SUPPLEMENTAL MATERIAL: P (more content not included)... [facility] 09-19-2023 Note HNO ID: [id number] Author: Ashley Gavin MD Service: ? Author Type: Physician Type: Procedures Filed: 09/19/2023 4:59 PM Note Text: Procedure Note Sacroiliac Joint Injection Procedure Date: 09/19/2023 Oniel Norman Date of : 1960 Attending: Ashley Gavin Fellow: none PREOPERATIVE DIAGNOSIS:1. Sacroiliac joint pain - ICD9: 724.6, ICD10: M53.3 POSTOPERATIVE DIAGNOSIS: Same OPERATION PERFORMED: Sacroiliac joint injection under fluoroscopic guidance SIDE: right IV SEDATION #1: Midazolam: 0 mg IV SEDATION #2 Fentanyl: 0 mcg ESTIMATED BLOOD LOSS: None FLUIDS: 0 of: 0.9% NaCl FLUOROSCOPY WAS USED. TOTAL SEDATION TIME: 0 minutes. INCISION/PROCEDURE START TIME: 0202 INCISION CLOSE/PROCEDURE END TIME: 0225 INDICATIONS FOR PROCEDURE: This is a 62 year old year old female with a clinical picture consistent with No diagnosis found. sacroiliac joint pain. PROCEDURE AND FINDINGS: The patient was greeted in the pre procedure holding area. The risk, benefits and alternatives to the procedure were again reviewed with the patient and written informed consent was placed in the chart. Prior to the procedure a time out was completed, verifying correct patient, procedure, site, positioning, and implants and/or special equipment. An IV line was not placed. Routine monitors were applied including EKG leads, blood pressure cuff, and pulse oximetry. A hockey scout film was taken to identify the correct level. The skin was prepped and draped in the usual sterile fashion. The overlying skin and subcutaneous tissue was anesthetized using a 25- gauge 1-1/2 inch needle with 1% preservative-free lidocaine for a total volume of 3 mls. Then a 22-gauge 3.5-inch Quincke spinal needle was advanced into the joint space under intermittent fluoroscopic guidance. Needle position was confirmed on both AP and lateral views. Then 1.0 mls of: Omnipaque 240 mg/ml dye was injected under AP view: Dye pattern revealed intraarticular spread. There was no evidence of intravascular uptake. Then 2.0 mls containing 1% lidocaine and 40 mg of Depo medrol was injected without incident. The needle was re- styletted and removed. The needle insertion site was dressed appropriately. The patient was taken to the recovery room where they were monitored for a brief period of time. She tolerated the procedure well and were discharged home in stable condition with post procedural instructions. Prior to the procedure, the patient reported a pain score of 9 out of 10. The patient was given a 24-hour diagnostic block sheet to return. Follow-up will be Clinic Visit. COMPLICATIONS: vascular flow on left SI on multiple attempts Comment(s): None [facility] 09-19-2023 Note HNO ID: [id number] Author: Courtney Ryan MA Service: ? Author Type: Hand Slitter Type: Progress Notes Filed: 09/19/2023 4:59 PM Note Text: PATIENT NAME: Oniel Norman 1960 62 year old Current medications and allergies reviewed with patient in visit navigator: Yes Baseline vital signs and pain assessment entered in activity in visit navigator: Yes Cranberry Sorter for post spine injection procedure: Yes First Name: Joyce Relationship: Daughter Pre-procedure pain level on 0-10 scale 9 Patient gender: Female. Is there any chance the patient could be ? No. Menstrual Date: Postmenopausal Undergone Injection in the past: No Time since last PO intake: 09/18/23 @ 7PM Any history of adverse reaction or unanticipated events when receiving steroids, iodine, or contrast, as commonly used for CT or MR imaging: Yes - Contrast - Anaphylaxis Antibiotic/antifungal administered in the last 2 weeks: No Recent flu symptoms: No Noticed any open skin, sores, or rashes: No Undergone any recent serious medical/dental or surgical procedure: No Diabetic: No Fluoroscopy applicable: currently using an Insulin Pump: No Blood Thinner (anticoagulants/antiplatelet medications): No Klonopin requested: Yes Signed by: Courtney Ryan MA September 19, 2023 1:[address] [facility] 09-19-2023 History of Present illness Narrative NON-SEDATION PROCEDURE FORM September 19, 2023 2:41 PM Room Number: [id number] Fluoroscopy suite ID verified: Yes Arrived via indpendent ambulation 62 year old Weight: Last 2 Encounter Wt Readings: Date: Wt: 09/06/2023 86.6 kg (191 lb) 04/28/2023 85.3 kg (188 lb) Indication for Procedure (Associated Diagnoses): low back pain Procedure ordered: Intra-articular Sacroiliac joint injection: Bilateral Verified by patient by: Dr. Gavin Cranberry Sorter for post spine injection procedure: Yes Patient mentation: alert, oriented, cooperative Yes Allergies: ALLERGIES Allergen Reactions Adhesive Rash, Itching Plastic bandaids Iv Dye [Iodine] Anaphylaxis Neosporin [Neomycin* Rash, Itching Penicillins Other: See Comments convulsions Pre-Procedural medication orders:N/A Documented in med note. Pre-procedural orders Discharge / transfer when discharge assessment criteria met: Alert and oriented X3, moves all extremities X4, vital signs stable, injection site flat and dry. Able to ambulate as prior to procedure Sign In Communication: Allergies and medications reviewed. Site of the procedure confirmed:Yes Informed Consent Complete: Yes Relevent diagnostic tests reviewed (i.e., use of anticoagulants, INR, platelet count, imaging, etc.) Yes Critical Information: Proceduralist: Dr. Romaine Varela MD PROCEDURAL TIME OUT: Time out verification includes:Audible time-out documented: Yes. Time: 1340 Correct Patient: Two Patient Identifiers Correct side/ site marking, prep and dry time (If applicable) Accurate Consent Correct Procedure Correct Positioning Safety Precautions Based on Patient History or Medication Team agrees: correct patient, correct procedure, correct site, correct position UNIVERSAL PROTOCOL / SAFETY CHECKLIST Procedure to be Performed: Intra-articular Sacroiliac joint injection: Bilateral Sign In: A Moment of CARE was completed. Personnel directly involved with the procedure wore the appropriate PPE (Personal Protective Equipment). No special equipment needed. Patient/Surrogate Stated/Verified: PATIENT VERIFIED(optional for EMERGENT procedures): Patient name, Date of , Relevant allergies, and The intended procedure Time Out Communication: Intended patient and procedure match the source documents. Consent documented and matches the intended procedure. Relevant labs, photos, and/or imaging studies have been reviewed. Correct side/site marked and visible. Medications required for procedure verified. Fire risk assessed and interventions discussed. No implant(s) inserted. Sign Out: SIGN OUT (optional for EMERGENT procedures): No specimen collected. All instruments, equipment, possible retained foreign bodies accounted for. Post-procedure follow-up management communicated and Plan of Care Visit completed when applicable. Evi East RN Procedure Start time: 1347 Monitors On: NIBP Yes Pulse Oximetry Yes Site Prep: Duraprep Procedure Events: Vital Signs documented in activity above. Medications given, interventions, and notes: Time: BP Pulse R O2 Sat 1345 128/76 58 18 95 1356 1404 133/75 55 18 96 1414 128/83 54 18 96 1421 124/83 58 18 96 Omnipaque (iohexol) 240mg/mL SDV volume 50 mL, Lidocaine 1% 10mg/mL SDV volume 30 mL Preservative-Free, and Depo-medrol 40mg/mL Total Fluroscopy time:: 70 seconds. Procedure Finish Time: 1425 SIGN-OUT Dressings Applied to site(s): hypoallergenic transparent Tegaderm with absorbent nonadherent pad Aguirre concerns for recovery and management of patient reviewed verbally prior to patient leaving procedure room. Post- Procedure Events: Vital Signs documented as below. Medications given, interventions, and notes as needed: Yes Time: BP Pulse R O2 Sat Pain scale 1435 116/57 66 18 95 9 AMBULATORY PATIENT EDUCATION TOPIC: PROCEDURE / SURGERY: Post Procedure Teaching: Symptom Management and Wound Care READINESS TO LEARN COGNITIVE ABILITY: Alert and oriented MOTIVATION TO LEARN: Interested FAMILY SUPPORT: High - Very involved in pt care INSTRUCTION PROVIDED TO: Patient and Daughter PATIENT LEARNS BEST BY: Individual Instruction Written Instruction - Hand-outs Verbal Instruction FACTORS AFFECTING LEARNING: None PHYSICAL LIMITATIONS AFFECTING LEARNING: None LEARNING RESPONSE METHOD OF INSTRUCTION: Teach Back post procedure instructions Individual instruction Written instruction - handouts Verbal instruction PATIENT / FAMILY RESPONSE: Verbalizes understanding of: POST-PROCEDURE INSTRUCTIONS-Correct actions to take to reduce post procedure complications Information received as demonstrated by interest and questions FOLLOW-UP PLAN: Patient instructed to call with any further issues SUPPLEMENTAL MATERIAL: Procedure discharge instructions REFERRAL (RECOMMENDATION): None Electronically Signed By Evi East RN In Department: [facility] Discharge assessment: PAIN SCALE: 9 on a scale of 0-10 (0=none, 10=extreme) Discharge: Verbal and written post procedure instructions given to:patient and daughter (adult) with stated understanding. Discharge prescriptions given to patient (if applicable). medication use explained to patient with stated understanding (if applicable) Patient Discharge to: Home, in the care of responsible adult: patient and daughter (adult) via indpendent ambulation Other: No, Patient will schedule L side Injection today Follow up as indicated on order: No follow -up Visit, patient instructed to call office 2-4 weeks. Patient reminded to bring pain diary to follow appointment. Patient will follow-up with Dr. Brennan as needed. Discharge as above criteria met: Yes Condition of surgical/injection site at discharge: dry, intact, other: Yes September 19, 2023 Additional notes: Patient will reschedule for L side injection today. Patient and daughter without further questions. Discharge time: 1446 PATIENT NAME: Oniel Norman 1960 62 year old Current medications and allergies reviewed with patient in visit navigator: Yes Baseline vital signs and pain assessment entered in activity in visit navigator: Yes Cranberry Sorter for post spine injection procedure: Yes First Name: Joyce Relationship: Daughter Pre-procedure pain level on 0-10 scale 9 Patient gender: Female. Is there any chance the patient could be ? No. Menstrual Date: Postmenopausal Undergone Injection in the past: No Time since last PO intake: 09/18/23 @ 7PM Any history of adverse reaction or unanticipated events when receiving steroids, iodine, or contrast, as commonly used for CT or MR imaging: Yes - Contrast - Anaphylaxis Antibiotic/antifungal administered in the last 2 weeks: No Recent flu symptoms: No Noticed any open skin, sores, or rashes: No Undergone any recent serious medical/dental or surgical procedure: No Diabetic: No Fluoroscopy applicable: currently using an Insulin Pump: No Blood Thinner (anticoagulants/antiplatelet medications): No Klonopin requested: Yes Signed by: Courtney Ryan MA September 19, 2023 1:25 PM documented in this encounter [facility] 09-19-2023 Procedure note Procedure Note Sacroiliac Joint Injection Procedure Date: 09/19/2023 Oniel Norman Date of : 1960 Attending: Ashley Gavin Fellow: none PREOPERATIVE DIAGNOSIS:1. Sacroiliac joint pain - ICD9: 724.6, ICD10: M53.3 POSTOPERATIVE DIAGNOSIS: Same OPERATION PERFORMED: Sacroiliac joint injection under fluoroscopic guidance SIDE: right IV SEDATION #1: Midazolam: 0 mg IV SEDATION #2 Fentanyl: 0 mcg ESTIMATED BLOOD LOSS: None FLUIDS: 0 of: 0.9% NaCl FLUOROSCOPY WAS USED. TOTAL SEDATION TIME: 0 minutes. INCISION/PROCEDURE START TIME: 0202 INCISION CLOSE/PROCEDURE END TIME: 0225 INDICATIONS FOR PROCEDURE: This is a 62 year old year old female with a clinical picture consistent with No diagnosis found. sacroiliac joint pain. PROCEDURE AND FINDINGS: The patient was greeted in the pre procedure holding area. The risk, benefits and alternatives to the procedure were again reviewed with the patient and written informed consent was placed in the chart. Prior to the procedure a time out was completed, verifying correct patient, procedure, site, positioning, and implants and/or special equipment. An IV line was not placed. Routine monitors were applied including EKG leads, blood pressure cuff, and pulse oximetry. A hockey scout film was taken to identify the correct level. The skin was prepped and draped in the usual sterile fashion. The overlying skin and subcutaneous tissue was anesthetized using a 25- gauge 1-1/2 inch needle with 1% preservative-free lidocaine for a total volume of 3 mls. Then a 22-gauge 3.5-inch Quincke spinal needle was advanced into the joint space under intermittent fluoroscopic guidance. Needle position was confirmed on both AP and lateral views. Then 1.0 mls of: Omnipaque 240 mg/ml dye was injected under AP view: Dye pattern revealed intraarticular spread. There was no evidence of intravascular uptake. Then 2.0 mls containing 1% lidocaine and 40 mg of Depo medrol was injected without incident. The needle was re- styletted and removed. The needle insertion site was dressed appropriately. The patient was taken to the recovery room where they were monitored for a brief period of time. She tolerated the procedure well and were discharged home in stable condition with post procedural instructions. Prior to the procedure, the patient reported a pain score of 9 out of 10. The patient was given a 24-hour diagnostic block sheet to return. Follow-up will be Clinic Visit. COMPLICATIONS: vascular flow on left SI on multiple attempts Comment(s): None documented in this encounter [facility] 09-19-2023 History and physical note UPDATED HISTORY AND PHYSICAL EXAMINATION PATIENT NAME: Oniel Norman SERVICE DATE: 09/19/2023 The History and Physical (completed in the past 30 days) has been reviewed and the patient has been examined. The contents accurately reflect the patient's condition with the following additions or revisions since the H&P was completed. Examination indicates no changes. Patient states she has allergy to Iodine Dye (she had a rash) Currently taking prednisone (50mg 13hr prior, 50mg 7hr prior, and 50mg 1hr prior) and benadryl for premedication. ASA taken 81mg today This H&P can be found in the Electronic Medical Record dated 09/06/23. PHYSICAL EXAMINATION: VITAL SIGNS: There were no vitals filed for this visit. GENERAL: Well-developed, well-nourished female in no apparent distress with pleasant mood. HEENT: Head is normocephalic/atraumatic. Nares appear normal. Moist mucous membranes without lesions. RESP: Non-labored breathing. CV: Extremities are warm and well-perfused. GI: Soft, NT / ND. SKIN: No rashes, lesions, ulceration or induration in the upper/lower extremities, trunk, or head/neck. PSYCH: Awake, alert and fully oriented. There is no evidence of cognitive or language dysfunction. Appropriate insight. An SIJ injection is considered medically reasonable and necessary because the following conditions are met: - moderate to severe LBP primarily experienced over the anatomical location of the SIJs between the upper level of the iliac crests and gluteal folds AND - LBP duration of 3 months AND - LBP below L5 without radiculopathy AND - Clinical findings and/or imaging do not suggest any other diagnosed or obvious cause of the lumbosacral pain (such as central spinal stenosis, infection, fracture) AND - LBP persists despite a minimum of 4 weeks of conservative therapies. Risk, benefits, and alternatives of surgery explained to patient by surgeon with explicit agreement by patient or patient provider service representative before surgery. SIGNATURE: Magnus Varela MD DATE: September 19, 2023 TIME: 1:20 PM documented in this encounter [facility] 09-13-2023 Miscellaneous Notes Addended by: MAHSA KILGORE on: 09/13/2023 05:06 PM Modules accepted: Orders Neuro SPINE CARE COORDINATION QUICK NOTE Preparations for Spine Injection Procedure [facility]: Spoke to patient and reviewed instructions. Encouraged patient to review Attracta message and contact the office with any questions or concerns. Office number provided. Injection date: 09/19/23 130p Allergy to Latex, shellfish, seafood, iodine, IV Contrast Dye, steroids or local anesthetics? : adhesive, IV dye/Iodine (hives, itching) Pre medication pended. Patient will purchase benadryl OTC Blood thinners including a full strength aspirin?: No 81mg Baby Aspirin? (Hold day before and day of) : yes. Not required to hold for this procedure Any open skin wounds or skin sores? : No Taking any antibiotics for any active infections? : No First Injection: Yes Sedation: No Diabetic: No Patient notified: Must have a electric pile driver operator that will remain present for entire procedure: Yes REQUIRED Nothing to eat or drink for 6 hours prior to this injection performed at [facility]. Take routine medications when they are normally due with small amount of water up to 2 hours prior. Avoid pain medications or OTC pain relievers the day of the injection. Provided education on spine injection procedure and answered questions. Given office phone number [phone] and [address] [facility] [phone] for any location or scheduling questions. Patient verbalized understanding of above instructions: Yes Attracta message sent with instructions: Yes TANK Uribe, RN September 13, 2023 4:48 PM documented in this encounter [facility] 09-06-2023 Note HNO ID: [id number] Author: Tommy Brennan MD Service: ? Author Type: Physician Type: Progress Notes Filed: 09/06/2023 2:34 PM Note Text: SPINE SURGERY OUTPATIENT CONSULT This is an in-person visit. SERVICE DATE: 09/06/2023 PCP: Liliya Lara MD REFERRING PROVIDER: Liliya Lara [address] [address] Consult requested for an opinion regarding the evaluation and treatment of low back pain. My final impression and recommendations will be communicated back to the requesting physician by way of the shared medical record or letter via US mail. SUBJECTIVE Oniel Norman is a 62 year old female presenting with daughter. CHIEF COMPLAINT: low back pain and left leg pain HISTORY OF PRESENT ILLNESS PRECIPITATING EVENT: February 2023 results in L3 compression fracture; had L1-L4 lumbar fusion at [facility] DURATION OF SYMPTOMS: Less Than 6 Weeks PAIN EVALUATION 09/01/2023 1145 Pain Level: 9 Pain Location: Back Description: Bloating;Sharp;Stabbing;Surgical/N ot Incision Duration Amount of Time: 24 Duration Units: Months Frequency: Continuous Intervention/Comfort measure: Other: See comment Comments: Have been taking Tylenol and muscle relaxers but it?s not working Patient's main symptom is pain in her back and legs which is present constantly, worse with sitting, standing, walking ACTIVE PROBLEM LIST Coronary Artery Disease Secondary Localized Osteoarthrosis, Lower Leg Other and Unspecified Superficial Injury of Other, Multiple, and Unspecified Sites, Without Mention of Infection Chronic Ulcer of Unspecified Site Knee Joint Replacement Hallux Rigidus, Acquired Hyperlipidemia Hypertension S/P Cabg X 3 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) Pneumonia Cramp of Both Lower Extremities Chest Pressure Strain of Neck Muscle [place] (Myocardial Infarction) Leg Swelling Beta-Cristiana Intolerance S/P Angioplasty With Stent Chronic Heart Failure With Preserved Ejection Fraction (Hcc) Sinus Bradycardia Preoperative Cardiovascular Examination PAST MEDICAL HISTORY Diagnosis Date Acute myocardial infarction, unspecified site 08/27/2001 Myocardial Infarction Bipolar disorder, unspecified (HCC) Compression fracture of L3 vertebra (HCC) Coronary artery disease Coronary atherosclerosis due to lipid rich plaque Depressive disorder, not elsewhere classified Generalized osteoarthrosis, unspecified site Hypertension Leg swelling Osteoporosis, unspecified PAST SURGICAL HISTORY Procedure Laterality Date CORONARY ARTERY BYP W/VEIN AND ARTERY GRAFT 4 VEIN PAST SURGICAL HISTORY OF menisectomy left knee PAST SURGICAL HISTORY OF arthroscopy both knees 3 times PAST SURGICAL HISTORY OF bunion right great toe repair PAST SURGICAL HISTORY OF Right hip PAST SURGICAL HISTORY OF Bilateral foot surgery STENT PLACEMENT 4 stents, unsucessful FAMILY HISTORY Problem Relation Age of Onset Hypertension Mother Heart Mother Heart Attack Mother S/p PCI/CABG Hyperlipidemia Mother Heart Failure Mother Hypertension Father Heart Father PPM Stroke Sister Heart Attack Brother Heart Attack Maternal Grandmother Diabetes Paternal Grandmother None Other no family h/o breast cancer Heart Maternal Uncle CABG Social History Tobacco Use Smoking status: Former Packs/day: 1.00 Years: 20.00 Additional pack years: 0.00 Total pack years: 20.00 Types: Cigarettes Quit date: 08/27/2001 Years since quittin.0 Smokeless tobacco: Never Tobacco comments: d/c 08/27/01 Vaping Use Vaping Use: Never used Substance Use Topics Alcohol use: Yes Comment: occ wine Drug use: No ALLERGIES Allergen Reactions Adhesive Rash, Itching Plastic bandaids Iv Dye [Iodine] Anaphylaxis Neosporin [Neomycin* Rash, Itching Penicillins Other: See Comments convulsions MEDICATIONS: traZODone (DESYREL) 100 mg tablet Take 100 mg by mouth daily at bedtime. 2 tabs at bedtime escitalopram oxalate (LEXAPRO) 5 mg tablet Take 5 mg by mouth once daily. vit B complex no.12/niacin,B3, (VITAMIN B COMPLEX NO.12-NIACIN ORAL) Take by mouth once daily. multivitamin with minerals (HAIR,SKIN AND NAILS ORAL) Take by mouth once daily. bumetanide (BUMEX) 2 mg tablet Take 2 mg by mouth once daily. lisinopril 2.5 mg tablet Takes one-half tablet by mouth daily lamoTRIgine (LAMICTAL) 200 mg tablet Take 200 mg by mouth once daily. oxyCODONE-acetaminophen (PERCOCET) 5-325 mg tablet Take 1 tablet by mouth every 4 hours as needed for Pain. isosorbide mononitrate ER (IMDUR) 30 mg 24 hr tablet Take 1 tablet by mouth once daily. take one tablet daily atorvastatin 80 mg tablet Take 80 mg by mouth once daily. pantoprazole 40 mg tablet Take 40 mg by mouth once daily. Aspirin 81 mg tab Take 81 mg by mouth once daily. REVIEW OF SYSTEMS: GENERAL: No (more content not included)... [facility] 09-02-2023 Miscellaneous Notes Neuro SPINE CARE COORDINATION QUICK NOTE Pt has not yet been seen. First appt scheduled for 09/[address] Brennan. Isabelle Daniel, RN Chipper Feeder Received the following record(s) via . -MRI L Spine wo Date 04/14/23 Record(s) scanned into pt's chart. Imaging already uploaded Danielle Samayoa documented in this encounter [facility] 08-29-2023 Note HNO ID: [id number] Author: Laura Acosta, RT(R) Service: ? Author Type: Technologist Type: Progress Notes Filed: 08/29/2023 1:04 PM Note Text: Radiology Service Progress Note PATIENT NAME: Oniel Norman DATE OF SERVICE: August 29, 2023 TIME: 1:03 PM PATIENT IDENTITY VERIFICATION COMPLETED USING TWO (2) IDENTIFIERS: Name and Date of confirmed by patient verbally. FALL SCREENING: Has the patient had 2 falls in the last year or 1 fall with injury or currently using an Ambulatory Assistive Device (Walker, Cane, Wheelchair, Crutches, etc.)? No PATIENT GENDER DATA: Female. status: : No status: N/A PATIENT RELEVANT IMPLANT DATA REVIEWED: Not Applicable RADIOLOGY DEPARTMENT: General X-ray: Exam(s) Completed: Spine X-Ray(s): Lumbar AP / LAT / L5-S1 / OBL / FLEX-EXT PERIPHERAL IV DATA: Not applicable SIGNED BY: RT Zhao(R) August 29, 2023 1:03 PM [facility] 08-29-2023 History of Present illness Narrative Radiology Service Progress Note PATIENT NAME: Oniel Norman DATE OF SERVICE: August 29, 2023 TIME: 1:03 PM PATIENT IDENTITY VERIFICATION COMPLETED USING TWO (2) IDENTIFIERS: Name and Date of confirmed by patient verbally. FALL SCREENING: Has the patient had 2 falls in the last year or 1 fall with injury or currently using an Ambulatory Assistive Device (Walker, Cane, Wheelchair, Crutches, etc.)? No PATIENT GENDER DATA: Female. status: : No status: N/A PATIENT RELEVANT IMPLANT DATA REVIEWED: Not Applicable RADIOLOGY DEPARTMENT: General X-ray: Exam(s) Completed: Spine X-Ray(s): Lumbar AP / LAT / L5-S1 / OBL / FLEX-EXT PERIPHERAL IV DATA: Not applicable SIGNED BY: RT Zhao(R) August 29, 2023 1:03 PM documented in this encounter [facility] 08-15-2023 Evaluation + Plan note Associated Problem(s): Dermatitis triamcinalone cream prescribed Discussed lifestyle modifications which can help prevent dry skin [facility] 08-15-2023 Miscellaneous Notes Associated Problem(s): Dermatitis triamcinalone cream prescribed Discussed lifestyle modifications which can help prevent dry skin Associated Problem(s): Anxiety Continue lexapro 10mg daily Advised pt to follow up with counseling- but pt reports financial difficulties at this time -social work has reached out to pt to discuss options Associated Problem(s): Essential hypertension controlled Associated Problem(s): Restless leg requip prescribed Associated Problem(s): Chronic low back pain S/p lumbar fixation 05/11/23 -MRI in June 2023 showed: Postsurgical changes of posterolateral fusion at L1 through L3 with metallic susceptibility artifact. There is a fluid collection posterior to the paraspinal soft tissues on the left, at the L3 level, measuring 3.1 x 3.2 x 3.9 cm. This does not demonstrate mass effect upon the thecal sac. Redemonstrated is a compression fracture of the L3 vertebral body similar in appearance to the prior exam. There is similar loss of vertebral body height and osseous retropulsion into the spinal canal. There is new edema within the superior endplate of L1 without loss of vertebral body height or osseous retropulsion into the spinal canal . Neural foraminal narrowing most pronounced at L4-L5 and L5-S1 with [id number] bilateral neural foraminal stenosis -referral to spine surgery. Pt does not want to follow up w/ [facility] -pt does have referral to pain management by [facility] and is currently awaiting an appt -at this time I advised patient to follow up w/ pain management for control of her symptoms- I would continue acetaminophen 1000mg tid as needed. documented in this encounter [facility] 08-15-2023 Evaluation + Plan note Associated Problem(s): Anxiety Continue lexapro 10mg daily Advised pt to follow up with counseling- but pt reports financial difficulties at this time -social work has reached out to pt to discuss options [facility] 08-15-2023 Evaluation + Plan note Associated Problem(s): Essential hypertension controlled [facility] 08-15-2023 Evaluation + Plan note Associated Problem(s): Restless leg requip prescribed [facility] 08-15-2023 Evaluation + Plan note Associated Problem(s): Chronic low back pain S/p lumbar fixation 05/11/23 -MRI in June 2023 showed: Postsurgical changes of posterolateral fusion at L1 through L3 with metallic susceptibility artifact. There is a fluid collection posterior to the paraspinal soft tissues on the left, at the L3 level, measuring 3.1 x 3.2 x 3.9 cm. This does not demonstrate mass effect upon the thecal sac. Redemonstrated is a compression fracture of the L3 vertebral body similar in appearance to the prior exam. There is similar loss of vertebral body height and osseous retropulsion into the spinal canal. There is new edema within the superior endplate of L1 without loss of vertebral body height or osseous retropulsion into the spinal canal . Neural foraminal narrowing most pronounced at L4-L5 and L5-S1 with [id number] bilateral neural foraminal stenosis -referral to spine surgery. Pt does not want to follow up w/ [facility] -pt does have referral to pain management by [facility] and is currently awaiting an appt -at this time I advised patient to follow up w/ pain management for control of her symptoms- I would continue acetaminophen 1000mg tid as needed. [facility] 08-09-2023 Note HNO ID: [id number] Author: Walt Carrion APRN.[employer] Service: ? Author Type: Nurse Practitioner Type: Progress Notes Filed: 08/09/2023 10:50 AM Note Text: Per Triage: Oniel Norman is a 62 year old female that requests evaluation of lumbar spine. Per review, they have symptoms of Back pain, Leg pain bilateral, difficulty walking, Numbness L side Weakness, Trouble using your hands I've gotten a hip replacement and this is effecting my hip L side of back is higher than R side Requested provider (First and Last name): Dr. Tommy Brennan Referring Provider Dr. Liliya Lara Is this a 2nd opinion? Yes Were you offered surgery? No complication after surgery 05/06/2023 lumbar surgery [place] [id number], [place], [place] CMT: Gabapentin; PT for shoulder and hip Studies (Reports unless indicated) MRI lumbar report: Interval postsurgical changes of posterolateral fusion at L1, L2, L3 and L4. There is a fluid collection posterior to the paraspinal muscles on the left at the L3 level measuring 3.1 x 3.2 x 3.9 cm (transverse by cc) nonspecific edema within the subcutaneous soft tissues and paraspinal muscles is likely post surgical. Redemonstrated is a compression fracture of the L3 vertebral body with greater than 75% loss of vertebral body height centrally and mild osseous retropulsion into the spinal canal measuring approximally 3-4 mm Disposition: Please schedule with Dr Brennan XR prior to appointment. [facility] 08-09-2023 History of Present illness Narrative Per Triage: Oniel Norman is a 62 year old female that requests evaluation of lumbar spine. Per review, they have symptoms of Back pain, Leg pain bilateral, difficulty walking, Numbness L side Weakness, Trouble using your hands I've gotten a hip replacement and this is effecting my hip L side of back is higher than R side Requested provider (First and Last name): Dr. Tommy Brennan Referring Provider Dr. Liliya Lara Is this a 2nd opinion? Yes Were you offered surgery? No complication after surgery 05/06/2023 lumbar surgery [facility] [address], [place], [place] CMT: Gabapentin; PT for shoulder and hip Studies (Reports unless indicated) MRI lumbar report: Interval postsurgical changes of posterolateral fusion at L1, L2, L3 and L4. There is a fluid collection posterior to the paraspinal muscles on the left at the L3 level measuring 3.1 x 3.2 x 3.9 cm (transverse by cc) nonspecific edema within the subcutaneous soft tissues and paraspinal muscles is likely post surgical. Redemonstrated is a compression fracture of the L3 vertebral body with greater than 75% loss of vertebral body height centrally and mild osseous retropulsion into the spinal canal measuring approximally 3-4 mm Disposition: Please schedule with Dr Brennan XR prior to appointment. Patient name: Oniel Norman Are you being referred by a Center for [facility] Provider or Pain Management Provider at [facility]? No If answer is YES please schedule directly with surgeon, triage does not need to be completed. Is this a self-referral No If not, who is the Referring Provider Dr. Liliya Lara Is this a 2nd opinion? Yes Were you offered surgery? No complication after surgery MRI/CT/myelogram within 12 months? Yes If NO , please refer to medical spine or PCP to complete above imaging, triage does not need to be completed If YES, please ask for the name/address of the facility where the MRI/CT/myelogram was completed: [facility] [id number] AND [facility] [address], [place] [address] AND [facility] [address] [place] [address] [place] [address] MRI/CT/myelogram viewable in Epic: No If not, please provide [phone] to fax in imaging reports for review. Also, please inform patient to hand carry imaging disc to appointment. XR (spine) within 12 months: Yes If YES, please ask for the name/address of the facility where the XR was completed: [place] [address] Dr. Danielle's patients: Have you had previous EMG/Nerve Conduction Study, Ultrasound, or MRI for these same symptoms? If YES, please ask for the name/address of the facility where they were completed: Requested provider (First and Last name): Dr. Tommy Brennan Are you interested in a virtual visit if offered? 1. Where are you having symptoms related to this visit? Lumbar spine Back pain Yes Leg pain Yes bilateral Arm pain No Neck pain No 2. Are you having any of the following symptoms: Difficulty walking Yes Numbness Yes L side Weakness Yes Trouble using your hands? No I've gotten a hip replacement and this is effecting my hip L side of back is higher than R side 3. Have you had any injections or physical therapy in the last 12 months? No PT for shoulder and hip If YES then please ask for the name/address of the facility where the injections and/or physical therapy was completed Have you tried any other kinds of non-surgical treatments in the last 12 months? (For example: NSAIDS, muscle relaxants, analgesics, oral steroids, Chiropractor, Acupuncture): gabapentin 4. Are you currently taking daily prescribed narcotic medications for your current symptoms (For example Oxycodone, Hydrocodone, Tramadol, Morphine, Other)? No 5. Have you had previous spinal surgery for this same symptoms? Yes If YES please ask for the name of facility/address of where the surgery was completed: 05/06/2023 lumbar surgery [facility] [address], [place] [address] Additional Comments [phone] documented in this encounter [facility] 08-04-2023 Note HNO ID: [id number] Author: Ester Boswell Service: ? Author Type: ? Type: Progress Notes Filed: 08/09/2023 10:50 AM Note Text: Patient name: Oniel Norman Are you being referred by a Center for [facility] Provider or Pain Management Provider at [facility]? No If answer is YES please schedule directly with surgeon, triage does not need to be completed. Is this a self-referral No If not, who is the Referring Provider Dr. Liliya Lara Is this a 2nd opinion? Yes Were you offered surgery? No complication after surgery MRI/CT/myelogram within 12 months? Yes If NO , please refer to medical spine or PCP to complete above imaging, triage does not need to be completed If YES,? please ask for the name/address of the facility where the MRI/CT/myelogram was completed: MRI [facility] [address] [place] [address] AND [facility] [address] [place] [address] AND [facility] [address] [place] [address] AND [facility] [address] [place] [address] MRI/CT/myelogram viewable in Epic: No If not, please provide [phone] to fax in imaging reports for review. Also, please inform patient to hand carry imaging disc to appointment. XR (spine) within 12 months: Yes If YES,? please ask for the name/address of the facility where the XR was completed: [place] [address] Dr. Danielle's patients: Have you had previous EMG/Nerve Conduction Study, Ultrasound, or MRI for these same symptoms? If YES,? please ask for the name/address of the facility where they were completed: Requested provider (First and Last name): Dr. Tommy Brennan Are you interested in a virtual visit if offered? 1. Where are you having symptoms related to this visit? Lumbar spine Back pain Yes Leg pain Yes bilateral Arm pain No Neck pain No 2. Are you having any of the following symptoms: Difficulty walking Yes Numbness Yes L side Weakness Yes Trouble using your hands? No I've gotten a hip replacement and this is effecting my hip L side of back is higher than R side 3. Have you had any injections or physical therapy in the last 12 months? No PT for shoulder and hip If YES then please ask for the name/address of the facility where the injections and/or physical therapy was completed Have you tried any other kinds of non-surgical treatments in the last 12 months? (For example: NSAIDS, muscle relaxants, analgesics, oral steroids, Chiropractor, Acupuncture): gabapentin 4. Are you currently taking daily prescribed narcotic medications for your current symptoms (For example Oxycodone, Hydrocodone, Tramadol, Morphine, Other)? No 5. Have you had previous spinal surgery for this same symptoms? Yes If YES? please ask for the name of facility/address of where the surgery was completed: 05/06/2023 lumbar surgery [facility] [address], [place] [address] Additional Comments [phone] [facility] 08-01-2023 History of Present illness Narrative Images from the original note were not included. Assessment Assessment/Plan: Problem List Anxiety Continue lexapro 10mg daily Advised pt to follow up with counseling- but pt reports financial difficulties at this time -social work has reached out to pt to discuss options Essential hypertension controlled Chronic low back pain - Primary S/p lumbar fixation 05/11/23 -MRI in June 2023 showed: Postsurgical changes of posterolateral fusion at L1 through L3 with metallic susceptibility artifact. There is a fluid collection posterior to the paraspinal soft tissues on the left, at the L3 level, measuring 3.1 x 3.2 x 3.9 cm. This does not demonstrate mass effect upon the thecal sac. Redemonstrated is a compression fracture of the L3 vertebral body similar in appearance to the prior exam. There is similar loss of vertebral body height and osseous retropulsion into the spinal canal. There is new edema within the superior endplate of L1 without loss of vertebral body height or osseous retropulsion into the spinal canal . Neural foraminal narrowing most pronounced at L4-L5 and L5-S1 with [id number]-[id number] bilateral neural foraminal stenosis -referral to spine surgery. Pt does not want to follow up w/ [facility] -pt does have referral to pain management by [facility] and is currently awaiting an appt -at this time I advised patient to follow up w/ pain management for control of her symptoms- I would continue acetaminophen 1000mg tid as needed. Relevant Orders Ambulatory referral to Spine Surgery Restless leg requip prescribed Dermatitis triamcinalone cream prescribed Discussed lifestyle modifications which can help prevent dry skin Relevant Medications triamcinolone (KENALOG) 0.5 % cream No follow-ups on file. For any new medications prescribed today, patient was educated about indications for the medication, how to take the medication and potential side effects of the medications. Liliya Lara MD [facility] [address] [facility] [address] [facility] [id number] Dept: [phone] Subjective Chief Complaint Patient presents with Follow-up 6 mon fu HPI Oniel Norman is a 62 y.o. female with a past medical history of osteoarthritis, CADs/p PCI and CABG (SVG-OM1, ROSAS-OM2, SVG-OM3), bipolar disorder, DJD, hypertension, GERD, anxiety, osteoporosis, migraines presenting for back pain Patient surgery was completed 05/11/2023- Percutaneous robotic navigation Medtronic PS instrumentation L1-L4 bilaterally Fracture reduction L3, closed, Lelo robotic navigation for instrument placement Patient's preoperative diagnosis was L3 burst fracture with kyphosis, Lumbar stenosis L3-L4 status post L3 burst fracture She states that she continues to be in a significant amount of pain and went to the ED on 06.22.23 where MRI was completed- MRI on 06/22/23- Evaluation by level: Postsurgical changes of posterolateral fusion at L1 through L3 with metallic susceptibility artifact. There is a fluid collection posterior to the paraspinal soft tissues on the left, at the L3 level, measuring 3.1 x 3.2 x 3.9 cm. This does not demonstrate mass effect upon the thecal sac. Redemonstrated is a compression fracture of the L3 vertebral body similar in appearance to the prior exam. There is similar loss of vertebral body height and osseous retropulsion into the spinal canal. There is new edema within the superior endplate of L1 without loss of vertebral body height or osseous retropulsion into the spinal canal, however evaluation is somewhat limited secondary to adjacent metallic susceptibility artifact. Neural foraminal narrowing most pronounced at L4-L5 and L5-S1 with [id number] bilateral neural foraminal stenosis. X-ray lumbar spine June 24, 2023 by [facility] showed stable lumbar fixation and fusion for burst fracture extending to levels above 1 level below L1-L4. Moderate to significant stable lumbar disc degeneration at L4-L5 and L5-S1 known preoperatively. Has not followed up w/ [facility]- pt states she has not been able to get an appointment earlier than her 3 month follow up. she has tried gabapentin, baclofen as well as Flexeril and that was ineffective. She was taking oxycodone Percocet 10-3 25mg on 05/26/2023 for 7 days and was prescribed 28 tablets x 14 days prior to that. She states when she tries to lift up her right leg, there is shooting pain on the left side of her lumbar spine. She also has swelling on her left side and feels that her right leg is longer than her left leg. She denies any gait instability,she denies any cauda equina symptoms. Patient has been taking acetaminophen and ibuprofen intermittently throughout the day but this does not alleviate her symptoms. She has been back to work Restless leg- pt states having a hx of restless leg but more recently this has worsened. She was not taking medication for this in the past 2-3 years. She feels like her discomfort is worse at night and she has to constantly move her legs. There is no numbness/tingling/loss of sensation associated with this discomfort Bipolar disorder/anxiety- on Lamictal 200mg daily. Uncontrolled sx w/ axniety. Pt states lexapro 10mg has been helping and she would like to continue this dose. Previously she was on effexor but had side effects and it was discontinued. Patient is currently on trazodone to 100 mg nightly. I do believe that this is due to her uncontrolled anxiety symptoms.Patient would like to follow-up with counseling services however she is financially strained at this time and cannot afford this. We also had extensive discussion about following up with psychiatry for medication management Depression and anxiety- Currently on lamictal for bipolar disorder. Was on lexapro 10mg prior to surgery and would like to start this again. She does not feel like hydroxyzine helps. Buspar caused side effects. She was taking gabapentin for pain and elavil for migraine prophylaxsis but this did not help with acute anxiety. She has some xanax that she will use to help her sleep at night. We discussed referral to psychiatry for management. She states out of pocket cost has prevented her in the past from seeing counseling- advised patient we would be placing referral for psychiatry specifcally. Dermatitis- pt has has hx of dry flaky skin on her hands- she states having to wash her hands constantly at work and this worsens her symptoms. She tries to use scented lotions but this does not help. No itching associated with this. Hypertension: BP noted to be well controlled today in office Patient Does not measure blood pressure at home. Patient denies any chest pain, shortness of breath, dyspnea on exertion, blurry vision, or headaches. No medication side effects. The 10-year ASCVD risk score (Kwame AGUILERA, et al., 2019) is: 4% Values used to calculate the score: Age: 62 years Sex: Female Is Non- : No Diabetic: No Tobacco smoker: No Systolic Blood Pressure: 130 mmHg Is BP treated: Yes HDL Cholesterol: 86 mg/dL Total Cholesterol: 142 mg/dL All pertinent positives and negatives are documented in ROS Patient's medications, allergies, past medical history, surgical history history, family history, social history were reviewed. Spent more than 40 minutes with patient, coordinating patient care, including reviewing charts and counseling patient. 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) 10/05/2015 Bipolar disorder, most recent episode depressed ([facility]) 12/25/2020 Callus of foot interdigital on right foot CHF (congestive heart failure) ([facility]) Chronic prescription opiate use Circulation problem Controlled substance agreement signed Depression GERD (gastroesophageal reflux disease) Hair loss Heart disease Hyperlipidemia Hypertension Left hip pain 07/26/2022 Migraine 12/25/2020 Myocardial infarct ([facility]) PT STATES SHE HAS HAD 10 HEART ATTACKS FROM 1999 TO 2003 Painful orthopaedic hardware ([facility]) Left first MPJ Weight loss Past Surgical History: Procedure Laterality Date ANGIOPLASTY X 4 APPENDECTOMY N/A BUNIONECTOMY N/A CABG N/A CORONARY ARTERY BYPASS GRAFT EYE SURGERY HERNIA REPAIR N/A JOINT REPLACEMENT knee replacement Right 20+ years ago OPEN HEART I & D ([facility]) 2003 OTHER SURGICAL HISTORY 2003 PER PT QUADRUPLE BYPASS TOTAL HIP ARTHROPLASTY Right 2017 TOTAL KNEE ARTHROPLASTY Left 2019 Family History Problem Relation Age of Onset Heart disease Mother Hypertension Mother Coronary artery disease Mother Arthritis Mother Heart disease Father Hypertension Father Bipolar disorder Father Other (BIPOLAR) Father COPD Father Diabetes Maternal Grandmother Social History Tobacco Use Smoking status: Former Types: Cigarettes Smokeless tobacco: Never Tobacco comments: QUIT IN 1999 Vaping Use Vaping Use: Never used Substance Use Topics Alcohol use: Not Currently Comment: occasionally Drug use: Never Allergies Allergen Reactions Iodine Anaphylaxis Penicillins Iodine And Iodide Containing Products Unknown Bhkbkqzc-Rrgtxqtbn-Uayufpwocz rash and itching Adhesive Itching and Rash Plastic bandaids Ct: Iodinated Contrast- Oral And Iv Dye Unknown and Rash Neosporin (Gnv-Fdk-Edmda) [Nycvpvmm-Ujkhpugtha-Xpwwxynst] Rash Ointment only Patient's Medications New Prescriptions ROPINIROLE (REQUIP) 0.5 MG TABLET Take 1 (one) tablet (0.5 mg total) by mouth nightly . TIZANIDINE (ZANAFLEX) 4 MG TABLET Take 1.5 (one and a half) tablets (6 mg total) by mouth 3 (three) times a day . TRIAMCINOLONE (KENALOG) 0.5 % CREAM Apply topically 2 (two) times a day Use on hands twice daily X 7 days . Previous Medications ALPRAZOLAM (XANAX) 0.5 MG TABLET Take 1 (one) tablet (0.5 mg total) by mouth nightly as needed for sleep . ATORVASTATIN (LIPITOR) 80 MG TABLET Take 1 (one) tablet (80 mg total) by mouth daily . BUMETANIDE (BUMEX) 1 MG TABLET Take 1 (one) tablet (1 mg total) by mouth 2 (two) times a day for 5 days . BUMETANIDE (BUMEX) 1 MG TABLET Take 1 (one) tablet (1 mg total) by mouth daily with breakfast . CALCITONIN, SALMON, (MIACALCIN) 200 UNIT/ACTUATION NASAL SPRAY CUSTOM PRESCRIPTION (E-PRESCRIBABLE) BEN peters . ISOSORBIDE MONONITRATE (IMDUR) 30 MG 24 HR TABLET Take 1 (one) tablet (30 mg total) by mouth daily . LAMOTRIGINE (LAMICTAL) 200 MG TABLET Take 1 (one) tablet (200 mg total) by mouth daily . LISINOPRIL (PRINIVIL,ZESTRIL) 2.5 MG TABLET Take 0.5 (one-half) tablet (1.25 mg total) by mouth daily . PANTOPRAZOLE (PROTONIX) 40 MG TABLET Take 1 (one) tablet (40 mg total) by mouth daily . TRAZODONE (DESYREL) 100 MG TABLET Take 2 (two) tablets (200 mg total) by mouth nightly . Modified Medications Modified Medication Previous Medication ESCITALOPRAM OXALATE (LEXAPRO) 10 MG TABLET escitalopram oxalate (LEXAPRO) 10 MG tablet Take 1 (one) tablet (10 mg total) by mouth daily . Take 1 (one) tablet (10 mg total) by mouth daily . Discontinued Medications TIZANIDINE (ZANAFLEX) 6 MG CAPSULE Take 1 (one) capsule (6 mg total) by mouth 3 (three) times a day as needed for muscle spasms . Objective Vitals: 08/01/23 0949 BP: 130/68 BP Location: Right arm Patient Position: Sitting BP Cuff Size: X-large Adult Pulse: (!) 49 Resp: 16 Temp: 98.5 F (36.9 C) TempSrc: Temporal SpO2: 95% Height: 5' 3.25 Estimated body mass index is 33.04 kg/m as calculated from the following: Height as of this encounter: 5' 3.25 . Weight as of 05/04/23: 85.3 kg (188 lb). Physical Exam Vitals and nursing note reviewed. Constitutional: Appearance: Normal appearance. She is obese. HENT: Head: Normocephalic and atraumatic. Eyes: Extraocular Movements: Extraocular movements intact. Cardiovascular: Rate and Rhythm: Normal rate. Pulmonary: Effort: Pulmonary effort is normal. Abdominal: General: Abdomen is flat. Musculoskeletal: Lumbar back: Swelling, spasms and tenderness present. Decreased range of motion. Positive right straight leg raise test. Negative left straight leg raise test. Back: Skin: Findings: No erythema or rash. Comments: Bilateral hands- dry peeling skin Neurological: Mental Status: She is alert and oriented to person, place, and time. Sensory: No sensory deficit. Motor: Weakness (4/5 R hip flexion, 4+/5 L hip flexion) present. Coordination: Coordination normal. Ltntbk-Eypr-Xqpthe Test and Heel to Hightower Test normal. Gait: Gait abnormal. Psychiatric: Mood and Affect: Mood is anxious. Affect is tearful. Behavior: Behavior is cooperative. PHQ9: PHOEBE-7 Tobacco Counseling: Counseling given: Not Answered Tobacco comments: QUIT IN 1999 documented in this encounter [facility] 06-25-2023 History of Present illness Narrative Assessment Date: 06/25/23 Pain Type & Exclusions Type of Pain: Subacute/Chronic Do exclusions apply to your patient (select all that apply): No Exclusions Apply Called [facility] to have pt bring back any norco tabs left that the pt has to discard -however pharmacy is unable to do that Pharmacist stated she would need to bring them to the physician's office -however we are now allowed to take medications back from pt's per VERENA. We also discussed pt taking medication to [facility]'s department to discard. Advise pharmacy that I would send in a short course of percocet for pt and I would let pt know to take the rest of the [facility]. documented in this encounter [facility] 06-21-2023 Evaluation + Plan note Associated Problem(s): Intractable back pain Advised pt to go to ER for imaging Advised pt to call after her discharge and we would develop plan for pain control until she sees orthopedics at the end of the month [facility] 06-21-2023 Miscellaneous Notes Associated Problem(s): Intractable back pain Advised pt to go to ER for imaging Advised pt to call after her discharge and we would develop plan for pain control until she sees orthopedics at the end of the month documented in this encounter [facility] 06-21-2023 History of Present illness Narrative Images from the original note were not included. Assessment Assessment/Plan: Problem List Anxiety Relevant Medications ALPRAZolam (XANAX) 0.5 MG tablet CAD (coronary artery disease), [place] coronary artery Relevant Medications bumetanide (BUMEX) 1 MG tablet lisinopriL (PRINIVIL,ZESTRIL) 2.5 MG tablet Intractable back pain - Primary Advised pt to go to ER for imaging Advised pt to call after her discharge and we would develop plan for pain control until she sees orthopedics at the end of the month No follow-ups on file. For any new medications prescribed today, patient was educated about indications for the medication, how to take the medication and potential side effects of the medications. Liliya Lara MD [facility] [address] [facility] [address] [facility] [id number] Dept: [phone] Subjective Chief Complaint Patient presents with Follow-up 6 week f/u on chronic conditions Gap Closure (Health Maintenance) Pap Smear Never done Mammogram due on 02/26/2017 COVID-19 Vaccine(4 - Pfizer series) due on 04/20/2022 HPI Oniel Norman is a 62 y.o. female with a past medical history of osteoarthritis, CADs/p PCI and CABG (SVG-OM1, ROSAS-OM2, SVG-OM3), bipolar disorder, DJD, hypertension, GERD, anxiety, osteoporosis, migraines presenting for back pain Patient surgery was completed 05/11/2023 She states that she continues to be in a significant amount of pain-she is prescribed gabapentin and completed the course of that but did not find any relief. She took baclofen as well as Flexeril and that was ineffective. She was taking oxycodone Percocet 10-3 25mg on 05/26/2023 for 7 days and was prescribed 28 tablets x 14 days prior to that. She states that currently she has been splitting the tablet in half and taking it twice a day because she wants to preserve the medication as nothing else has been providing relief She feels decreased strength in her lower extremities and pain when she lays on her left side. She states when she tries to lift up her right leg, there is shooting pain on the left side of her lumbar spine. She also has swelling on her left side and feels that her right leg is longer than her left leg. She denies any gait instability,she denies any cauda equina symptoms. Patient has been taking acetaminophen and ibuprofen intermittently throughout the day but this does not alleviate her symptoms. She has been back to work For the last 2 weeks and she states that the pain was very intense yesterday that she had to lay down on the floor and she cannot work. Patient is very tearful in clinic and states that she is not sure what else to do. She states she called [facility] and they recommended PCP follow-up with pain management Advised the patient that this is more acute and if this is intractable back pain, I would advise patient to go to the ER for imaging Patient does state having pain management referral for July through [facility] Patient was amenable to going to the ER at [facility] ER was called and Kait TOLEDO was notified All pertinent positives and negatives are documented in ROS Patient's medications, allergies, past medical history, surgical history history, family history, social history were reviewed. Spent more than 20 minutes with patient, coordinating patient care, including reviewing charts and counseling patient. 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) 10/05/2015 Bipolar disorder, most recent episode depressed ([facility]) 12/25/2020 Callus of foot interdigital on right foot CHF (congestive heart failure) ([facility]) Chronic prescription opiate use Circulation problem Controlled substance agreement signed Depression Hair loss Heart disease Hyperlipidemia Hypertension Left hip pain 07/26/2022 Migraine 12/25/2020 Myocardial infarct ([facility]) PT STATES SHE HAS HAD 10 HEART ATTACKS FROM 1999 TO 2003 Painful orthopaedic hardware ([facility]) Left first MPJ Weight loss Past Surgical History: Procedure Laterality Date ANGIOPLASTY X 4 APPENDECTOMY N/A BUNIONECTOMY N/A CABG N/A CORONARY ARTERY BYPASS GRAFT EYE SURGERY HERNIA REPAIR N/A JOINT REPLACEMENT knee replacement Right 20+ years ago OPEN HEART I & D (GEN[facility]) 2003 OTHER SURGICAL HISTORY 2004 PER PT QUADRUPLE BYPASS TOTAL HIP ARTHROPLASTY Right 2017 TOTAL KNEE ARTHROPLASTY Left 2019 Family History Problem Relation Age of Onset Heart disease Mother Hypertension Mother Coronary artery disease Mother Arthritis Mother Heart disease Father Hypertension Father Bipolar disorder Father Other (BIPOLAR) Father COPD Father Diabetes Maternal Grandmother Social History Tobacco Use Smoking status: Former Types: Cigarettes Smokeless tobacco: Never Tobacco comments: QUIT IN 1999 Vaping Use Vaping Use: Never used Substance Use Topics Alcohol use: Not Currently Comment: occasionally Drug use: Never Allergies Allergen Reactions Iodine Anaphylaxis Penicillins Iodine And Iodide Containing Products Unknown Dbfpacbx-Amtxnvlri-Drmadkqcva rash and itching Adhesive Itching and Rash Plastic bandaids Ct: Iodinated Contrast- Oral And Iv Dye Unknown and Rash Neosporin (Qre-Heh-Icbod) [Zfqsccdd-Asrgkiwpwd-Itiljeggl] Rash Ointment only Patient's Medications New Prescriptions No medications on file Previous Medications ATORVASTATIN (LIPITOR) 80 MG TABLET Take 1 (one) tablet (80 mg total) by mouth daily . BUMETANIDE (BUMEX) 1 MG TABLET Take 1 (one) tablet (1 mg total) by mouth 2 (two) times a day for 5 days . CALCITONIN, SALMON, (MIACALCIN) 200 UNIT/ACTUATION NASAL SPRAY CUSTOM PRESCRIPTION (E-PRESCRIBABLE) BEN peters . ISOSORBIDE MONONITRATE (IMDUR) 30 MG 24 HR TABLET Take 1 (one) tablet (30 mg total) by mouth daily . OXYCODONE-ACETAMINOPHEN (PERCOCET) 10-325 MG PER TABLET Take 1 (one) tablet by mouth every 6 (six) hours as needed for pain . TRAZODONE (DESYREL) 100 MG TABLET Take 2 (two) tablets (200 mg total) by mouth nightly . Modified Medications Modified Medication Previous Medication ALPRAZOLAM (XANAX) 0.5 MG TABLET ALPRAZolam (XANAX) 0.5 MG tablet Take 1 (one) tablet (0.5 mg total) by mouth nightly as needed for sleep . Take 1 (one) tablet (0.5 mg total) by mouth nightly as needed for sleep . BUMETANIDE (BUMEX) 1 MG TABLET bumetanide (BUMEX) 1 MG tablet Take 1 (one) tablet (1 mg total) by mouth daily with breakfast . Take 1 (one) tablet (1 mg total) by mouth daily with breakfast . ESCITALOPRAM OXALATE (LEXAPRO) 10 MG TABLET escitalopram oxalate (LEXAPRO) 10 MG tablet Take 1 (one) tablet (10 mg total) by mouth daily . Take 1 (one) tablet (10 mg total) by mouth daily . LAMOTRIGINE (LAMICTAL) 200 MG TABLET lamoTRIgine (LAMICTAL) 200 MG tablet Take 1 (one) tablet (200 mg total) by mouth daily . Take 1 (one) tablet (200 mg total) by mouth daily . LISINOPRIL (PRINIVIL,ZESTRIL) 2.5 MG TABLET lisinopriL (PRINIVIL,ZESTRIL) 2.5 MG tablet Take 0.5 (one-half) tablet (1.25 mg total) by mouth daily . Take 0.5 (one-half) tablet (1.25 mg total) by mouth daily . PANTOPRAZOLE (PROTONIX) 40 MG TABLET pantoprazole (PROTONIX) 40 MG tablet Take 1 (one) tablet (40 mg total) by mouth daily . Take 1 (one) tablet (40 mg total) by mouth daily . Discontinued Medications BACLOFEN (LIORESAL) 10 MG TABLET CYCLOBENZAPRINE (FLEXERIL) 5 MG TABLET GABAPENTIN (NEURONTIN) 300 MG CAPSULE Objective Vitals: 06/21/23 1654 BP: 137/75 BP Location: Right arm Patient Position: Sitting BP Cuff Size: X-large Adult Pulse: (!) 56 Resp: 16 Temp: 98 F (36.7 C) TempSrc: Infrared SpO2: 97% Height: 5' 3.25 Estimated body mass index is 33.04 kg/m as calculated from the following: Height as of this encounter: 5' 3.25 . Weight as of 05/04/23: 85.3 kg (188 lb). Physical Exam Vitals and nursing note reviewed. Constitutional: Appearance: Normal appearance. HENT: Head: Normocephalic and atraumatic. Eyes: Extraocular Movements: Extraocular movements intact. Cardiovascular: Rate and Rhythm: Normal rate. Pulmonary: Effort: Pulmonary effort is normal. Abdominal: General: Abdomen is flat. Musculoskeletal: Lumbar back: Swelling, spasms and tenderness present. Decreased range of motion. Positive right straight leg raise test. Negative left straight leg raise test. Back: Neurological: Mental Status: She is alert and oriented to person, place, and time. Sensory: No sensory deficit. Motor: Weakness (4/5 R hip flexion, 4+/5 L hip flexion) present. Coordination: Coordination normal. Ijtaql-Bpyw-Wezrbh Test and Heel to Hightower Test normal. Gait: Gait abnormal. Psychiatric: Mood and Affect: Mood is anxious. Affect is tearful. Behavior: Behavior is cooperative. PHQ9: Over the last 2 weeks, how often have you been bothered by any of the following problems? Little interest or pleasure in doing things: Several days Feeling down, depressed, or hopeless: Not at all PHQ-2 Total Score: 1 Trouble falling or staying asleep, or sleeping too much: Not at all Feeling tired or having little energy: Not at all Poor appetite or overeating: Not at all Feeling bad about yourself - or that you are a failure or have let yourself or your family down: Not at all Trouble concentrating on things, such as reading the newspaper or watching television: Not at all Moving or speaking so slowly that other people could have noticed. Or the opposite - being so fidgety or restless that you have been moving around a lot more than usual: Not at all Thoughts that you would be better off , or of hurting yourself in some way: Not at all PHQ-9 Total Score: 1 If you checked off any problems, how difficult have these problems made it for you to do your work, take care of things at home, or get along with other people?: Not difficult at all PHOEBE-7 Over the last 2 weeks, how often have you been bothered by the following problems? Feeling nervous, anxious or on edge: Over half the days Not being able to stop or control worrying: Nearly every day Worrying too much about different things: Nearly every day Trouble relaxing: Over half the days Being so restless that it is hard to sit still: Over half the days Becoming easily annoyed or irritable: Several days Feeling afraid as if something awful might happen: Not at all PHOEBE-7 Score: (!) 13 Tobacco Counseling: Counseling given: Not Answered Tobacco comments: QUIT IN 199912/25/2020 2:00 PM 05/25/2022 7:18 AM 06/21/2023 6:35 PM Depression Screening Little interest or pleasure in doing things 0 0 1 Feeling down, depressed, or hopeless 1 1 0 PHQ-2 Total Score 1 1 1 Trouble falling or staying asleep, or sleeping too much 1 0 0 Feeling tired or having little energy 1 0 0 Poor appetite or overeating 0 0 0 Feeling bad about yourself - or that you are a failure or have let yourself or your family down 0 0 0 Trouble concentrating on things, such as reading the newspaper or watching television 0 0 0 Moving or speaking so slowly that other people could have noticed. Or the opposite - being so fidgety or restless that you have been moving around a lot more than usual 0 0 0 Thoughts that you would be better off , or of hurting yourself in some way 0 0 0 PHQ-9 Total Score 3 1 1 If you checked off any problems, how difficult have these problems made it for you to do your work, take care of things at home, or get along with other people? Not difficult at all Not difficult at all Not difficult at all documented in this encounter [facility] 05-31-2023 History of Present illness Narrative SW follow up outreach this date. Reason for outreach: Follow up Result: Sw attempted unsuccessful outreach to patient and left patient a voicemail requesting a return call. ADDENDUM : Sw received a return voicemail from patient reporting that she received the financial assistance applications and she is currently working on them. No additional needs identified at this time. Sw will remain available to assist pt as needed. JENNIFER Gutierrez, KATINA [employer] C[employer] Feeder/ Care Management [facility] [phone] documented in this encounter [facility] 05-16-2023 Emergency department Note RN went over discharge instructions with the patient, Patient was able to reinstruct RN with discharge care. Patient denies any questions. Patient is A&Ox3 at time of discharge. Laura Mosley RN 05/16/232202 [facility] 05-16-2023 Emergency department Note RN went over discharge instructions with the patient, Patient was able to reinstruct RN with discharge care. Patient denies any questions. Patient is A&Ox3 at time of discharge. Laura Mosley RN 05/16/232202 Pt given shawn blas per her request Liz Powers LPN 05/16/232011 Registration in with pt Liz Powers LPN 05/16/232009 Pt back from CT Liz Powers LPN 05/16/231933 [facility] Quick Cognitive Screen Performed [x] Answered by Patient [] Input provided by Family/Visitor [] Unable to be performed due to Patient Medical Status/not at risk for elopement (I.e. intubated/critical care patient) Patient Identifies Current Year? [x]Pt able to identify current year [] Pt unable to identify current year 2. Patient Identifies Current Month? [x] Pt able to identify current month [] Pt unable to identify current month 3. Recently Confused? [x] Negative history of confusion [] Positive history of confusion Quick Cognitive Screen Result: [x] Negative (no further action required) [] Positive (document interventions using .qcsintervention) once patient in room Laura Mosley RN 05/16/23 180 Images from the original note were not included. LumbarEMERGENCY DEPARTMENT ENCOUNTER Pt Name: Oniel Norman Birthdate 1960 Date of evaluation: 05/16/2023 ED Provider: ASTON Reid CHIEF COMPLAINT Chief Complaint Patient presents with Back Pain Back pain. Patient had back surgery last week. Patient states pain is getting worse. Pain medications not working. HISTORY OF PRESENT ILLNESS (Location/Symptom, Timing/Onset, Context/Setting, Quality, Duration, Modifying Factors, Severity) Note limiting factors. I wore appropriate PPE for the entirety of this encounter. HPI Oniel Norman is a 62 y.o. female who presents to the emergency department complaining of severe low back pain. Patient does note that she had recent surgery on 05/06/[address] Kenney. Patient reports that she has had severe pain in the area. States that she is able to ambulate and get around her house performing her ADLs. Reports having extreme pain. States that she does take oxycodone at home and it has no relief to her pain. Denies fever or chills. Denies any erythema or drainage around the surgical incision site. Nursing Notes were reviewed. Limitations to history: None Outside historians: None REVIEW OF SYSTEMS Review of Systems 6 systems reviewed, positives and pertinent negatives as per HPI. All other systems were reviewed and are negative. PAST MEDICAL HISTORY History reviewed. No pertinent past medical history. SURGICAL HISTORY History reviewed. No pertinent surgical history. CURRENT MEDICATIONS Previous Medications No medications on file ALLERGIES Iodinated contrast media and Pcn [penicillins] FAMILY HISTORY No family history on file. SOCIAL HISTORY Social History Socioeconomic History Marital status: Tobacco Use Smoking status: Never Smokeless tobacco: Never Substance and Sexual Activity Alcohol use: Yes Comment: social Drug use: Never SCREENINGS PHYSICAL EXAM ED Triage Vitals [05/16/23 1809] Temp Heart Rate Resp BP 36.9 C (98.5 F) 60 17 118/55 SpO2 Temp Source Heart Rate Source Patient Position 99 % Temporal -- -- BP Location FiO2 (%) -- -- Physical Exam Vitals and nursing note reviewed. Constitutional: General: She is not in acute distress. Appearance: She is not toxic-appearing. Comments: Tearful 62-year-old female who appears to be in discomfort. Patient does not appear to be in acute distress. HENT: Head: Normocephalic and atraumatic. Nose: Nose normal. Mouth/Throat: Mouth: Mucous membranes are moist. Pharynx: Oropharynx is clear. Cardiovascular: Rate and Rhythm: Normal rate and regular rhythm. Pulses: Normal pulses. Pulmonary: Effort: Pulmonary effort is normal. Breath sounds: Normal breath sounds. Musculoskeletal: Cervical back: Normal range of motion and neck supple. Comments: Sensation is intact of bilateral lower extremity. Posterior tibialis pulses 2+ bilaterally. Adduction and abduction of hips intact bilaterally. Flexion extension of knees intact bilaterally. Dorsiflexion plantarflexion intact of ankles. Surgical site appears well-healing with no erythema or purulent drainage noted. Ami in place. See photo. Skin: General: Skin is warm and dry. Capillary Refill: Capillary refill takes less than 2 seconds. Neurological: General: No focal deficit present. Mental Status: She is alert and oriented to person, place, and time. Psychiatric: Mood and Affect: Mood normal. DIAGNOSTIC RESULTS RADIOLOGY (Per Emergency Physician): Interpretation per the Radiologist below, if available at the time of this note: CT lumbar spine wo IV contrast Final Result 1. Posterolateral fusion L1-L4. Burst fracture at L3 appears acute or subacute. There are no prior studies to assess for change. Report Dictated on Electronically Signed By: Joya Byrd Electronically Signed Date/Time: 05/16/2023 7:48 PM EDT LABS: Labs Reviewed CBC WITH AUTO DIFFERENTIAL - Abnormal Result Value Auto WBC 7.1 RBC 3.67 (*) Hemoglobin 11.0 (*) Hematocrit 33.0 (*) MCV 89.9 MCH 30.0 MCHC 33.3 RDW 14.7 (*) Platelets 278 MPV 9.3 nRBC 0.0 Neutrophils Relative 64.9 Lymphocytes Relative 23.1 Monocytes Relative 8.6 Eosinophils Relative 2.9 Basophils Relative 0.5 Neutrophils Absolute 4.6 Lymphocytes Absolute 1.6 Monocytes Absolute 0.6 Eosinophils Absolute 0.2 Basophils Absolute 0.0 BASIC METABOLIC PANEL - Abnormal SODIUM 137 POTASSIUM 3.3 (*) CHLORIDE 101 CARBON DIOXIDE 28 UREA NITROGEN 12 CREATININE 0.88 GLUCOSE 97 CALCIUM 8.8 ANION GAP 8 eGFR 73.9 SEDIMENTATION RATE, AUTOMATED - Abnormal Sed Rate 49 (*) C-REACTIVE PROTEIN - Abnormal C REACTIVE PROTEIN 21.6 (*) All other labs were within normal range or not returned as of this dictation. EMERGENCY DEPARTMENT COURSE and DIFFERENTIAL DIAGNOSIS/MDM: Vitals: Vitals: 05/16/23 1809 BP: 118/55 Pulse: 60 Resp: 17 Temp: 36.9 C (98.5 F) TempSrc: Temporal SpO2: 99% Medications HYDROmorphone (Dilaudid) injection 0.5 mg (0.5 mg IntraMUSCular Given 05/16/23 1909) orphenadrine (Norflex) injection 60 mg (60 mg IntraMUSCular Given 05/16/232149) I independently evaluated the patient with supervising attending physician available as needed for collaboration. In brief, Oniel Norman is a 62 y.o. female who presented to the emergency department complaining of low back pain after a lumbar surgery that occurred on 05/06/2023. See HPI for further details. Nursing notes and medical records reviewed, patient recently had surgery on 05/06/[address] Kenney for lumbar spine. Differential considerations included surgical complication, hematoma, surgical site infection. Initial medical management includes Dilaudid given in ED for pain control. Initial workup includes CBC, BMP, ESR, CRP, CT lumbar spine. Lab workup results CBC shows no signs of leukocytosis. BMP shows no significant electrolyte abnormality. ESR is mildly elevated. CRP is mildly elevated 21.6. Imaging results per radiology CT lumbar spine shows posterior lateral fusion of L1-L4. Burst fracture of L3 appears to be acute or subacute. Chronic conditions contributing to patients presentation include recent surgery by Dr. Kenney on 05/06/2023. Social determinants to care: None noted. Consulted Ortho. Orthopedics recommended follow-up with [facility] as needed. Recommended intranasal calcitonin and muscle relaxer for patient's pain. Diagnosis status post lumbar spine operation. Disposition discharge home stable. Discussed work-up results with patient. Discussed orthopedic recommendations with patient. Patient demonstrated understanding. Prescribed patient intranasal calcitonin muscle relaxer to take as prescribed. Instructed patient to follow-up with her primary care provider in 2 to 3 days for reevaluation. Instructed patient to follow-up with [facility] as needed. Patient demonstrated understanding agree with this plan. Discussed ED return precautions, recommended consulting their primary doctor or returning to the ED if there are any new or worsening of symptoms, particularly redness, drainage from surgical site, fever. Follow-up PCP. Follow-up with [facility] as needed. PROCEDURES: Unless otherwise noted below, none Procedures FINAL IMPRESSION 1. S/P lumbar spine operation DISPOSITION Discharge 05/16/2023 09:40:01 PM PATIENT REFERRED TO: [facility] [address] [place] [id number] DISCHARGE MEDICATIONS: New Prescriptions CALCITONIN, SALMON, (MIACALCIN) 200 UNIT/ACT NASAL SPRAY Administer 1 spray into one nostril daily. CYCLOBENZAPRINE (FLEXERIL) 5 MG TABLET Take 1 tablet (5 mg) by mouth 3 times daily for 10 days. (Comment: Please note this report has been produced using speech recognition software and may contain errors related to that system including errors in grammar, punctuation, and spelling, as well as words and phrases that may be inappropriate. If there are any questions or concerns please feel free to contact the dictating provider for clarification.) ASTON Reid (electronically signed) Emergency Medicine Provider ASTON Reid 05/16/232199 In the absence of the provider I prescribed patient Muscle relaxer and intranasal calcitonin per request of orthopedics. Monalisa Burgos PA-C 05/16/232138 documented in this encounter [facility] 05-16-2023 Hospital Discharge instructions Ela Hill MD - 05/16/2023 9:46 PM EDT Images from the original note were not included. Please follow-up with [facility] as needed. Follow-up with your PCP in 2 to 3 days for an ER follow-up visit. We have prescribed you intranasal calcitonin as well as a muscle relaxer for your pain. Muscle relaxers will make you drowsy therefore do not drive while operating machinery or driving. Please continue to look at your surgical sites on your back to watch for any signs of infection that can occur this includes redness, swelling, purulent drainage from the area. Please return to the ER with any new or worsening symptoms. Orthopaedic Surgery Discharge Instructions: -Weight bearing as tolerated -Activity as tolerated, except avoid heavy lifting/pulling/otherwise strenuous activity -Follow-up outpatient with Dr. Kennedy Kenney. The office contact information is provided in your paperwork. -IF you experience SEVERE worsening of pain in short period of time and/or significant numbness/weakness in extremities or new loss of bowel or bladder function please call the office or return to the emergency department -Take medications as prescribed by the hospital doctors documented in this encounter [facility] 05-16-2023 Emergency department Note Pt given shawn blas per her request Liz Powers LPN 05/16/232011 [facility] 05-16-2023 Emergency department Note Registration in with pt Liz Powers LPN 05/16/232009 [facility] 05-16-2023 Emergency department Note Pt back from CT Liz Powers LPN 05/16/23 193 [facility] 05-16-2023 Emergency department Note [facility] Quick Cognitive Screen Performed [x] Answered by Patient [] Input provided by Family/Visitor [] Unable to be performed due to Patient Medical Status/not at risk for elopement (I.e. intubated/critical care patient) Patient Identifies Current Year? [x]Pt able to identify current year [] Pt unable to identify current year 2. Patient Identifies Current Month? [x] Pt able to identify current month [] Pt unable to identify current month 3. Recently Confused? [x] Negative history of confusion [] Positive history of confusion Quick Cognitive Screen Result: [x] Negative (no further action required) [] Positive (document interventions using .qcsintervention) once patient in room Laura Mosley RN 05/16/23 180 [facility] 05-16-2023 Physician Emergency department Note Images from the original note were not included. LumbarEMERGENCY DEPARTMENT ENCOUNTER Pt Name: Oniel Norman Birthdate 1960 Date of evaluation: 05/16/2023 ED Provider: ASTON Reid CHIEF COMPLAINT Chief Complaint Patient presents with Back Pain Back pain. Patient had back surgery last week. Patient states pain is getting worse. Pain medications not working. HISTORY OF PRESENT ILLNESS (Location/Symptom, Timing/Onset, Context/Setting, Quality, Duration, Modifying Factors, Severity) Note limiting factors. I wore appropriate PPE for the entirety of this encounter. HPI Oniel Norman is a 62 y.o. female who presents to the emergency department complaining of severe low back pain. Patient does note that she had recent surgery on 05/06/[address] Kenney. Patient reports that she has had severe pain in the area. States that she is able to ambulate and get around her house performing her ADLs. Reports having extreme pain. States that she does take oxycodone at home and it has no relief to her pain. Denies fever or chills. Denies any erythema or drainage around the surgical incision site. Nursing Notes were reviewed. Limitations to history: None Outside historians: None REVIEW OF SYSTEMS Review of Systems 6 systems reviewed, positives and pertinent negatives as per HPI. All other systems were reviewed and are negative. PAST MEDICAL HISTORY History reviewed. No pertinent past medical history. SURGICAL HISTORY History reviewed. No pertinent surgical history. CURRENT MEDICATIONS Previous Medications No medications on file ALLERGIES Iodinated contrast media and Pcn [penicillins] FAMILY HISTORY No family history on file. SOCIAL HISTORY Social History Socioeconomic History Marital status: Tobacco Use Smoking status: Never Smokeless tobacco: Never Substance and Sexual Activity Alcohol use: Yes Comment: social Drug use: Never SCREENINGS PHYSICAL EXAM ED Triage Vitals [05/16/23 1809] Temp Heart Rate Resp BP 36.9 C (98.5 F) 60 17 118/55 SpO2 Temp Source Heart Rate Source Patient Position 99 % Temporal -- -- BP Location FiO2 (%) -- -- Physical Exam Vitals and nursing note reviewed. Constitutional: General: She is not in acute distress. Appearance: She is not toxic-appearing. Comments: Tearful 62-year-old female who appears to be in discomfort. Patient does not appear to be in acute distress. HENT: Head: Normocephalic and atraumatic. Nose: Nose normal. Mouth/Throat: Mouth: Mucous membranes are moist. Pharynx: Oropharynx is clear. Cardiovascular: Rate and Rhythm: Normal rate and regular rhythm. Pulses: Normal pulses. Pulmonary: Effort: Pulmonary effort is normal. Breath sounds: Normal breath sounds. Musculoskeletal: Cervical back: Normal range of motion and neck supple. Comments: Sensation is intact of bilateral lower extremity. Posterior tibialis pulses 2+ bilaterally. Adduction and abduction of hips intact bilaterally. Flexion extension of knees intact bilaterally. Dorsiflexion plantarflexion intact of ankles. Surgical site appears well-healing with no erythema or purulent drainage noted. [place] in place. See photo. Skin: General: Skin is warm and dry. Capillary Refill: Capillary refill takes less than 2 seconds. Neurological: General: No focal deficit present. Mental Status: She is alert and oriented to person, place, and time. Psychiatric: Mood and Affect: Mood normal. DIAGNOSTIC RESULTS RADIOLOGY (Per Emergency Physician): Interpretation per the Radiologist below, if available at the time of this note: CT lumbar spine wo IV contrast Final Result 1. Posterolateral fusion L1-L4. Burst fracture at L3 appears acute or subacute. There are no prior studies to assess for change. Report Dictated on Electronically Signed By: Joya Byrd Electronically Signed Date/Time: 05/16/2023 7:48 PM EDT LABS: Labs Reviewed CBC WITH AUTO DIFFERENTIAL - Abnormal Result Value Auto WBC 7.1 RBC 3.67 (*) Hemoglobin 11.0 (*) Hematocrit 33.0 (*) MCV 89.9 MCH 30.0 MCHC 33.3 RDW 14.7 (*) Platelets 278 MPV 9.3 nRBC 0.0 Neutrophils Relative 64.9 Lymphocytes Relative 23.1 Monocytes Relative 8.6 Eosinophils Relative 2.9 Basophils Relative 0.5 Neutrophils Absolute 4.6 Lymphocytes Absolute 1.6 Monocytes Absolute 0.6 Eosinophils Absolute 0.2 Basophils Absolute 0.0 BASIC METABOLIC PANEL - Abnormal SODIUM 137 POTASSIUM 3.3 (*) CHLORIDE 101 CARBON DIOXIDE 28 UREA NITROGEN 12 CREATININE 0.88 GLUCOSE 97 CALCIUM 8.8 ANION GAP 8 eGFR 73.9 SEDIMENTATION RATE, AUTOMATED - Abnormal Sed Rate 49 (*) C-REACTIVE PROTEIN - Abnormal C REACTIVE PROTEIN 21.6 (*) All other labs were within normal range or not returned as of this dictation. EMERGENCY DEPARTMENT COURSE and DIFFERENTIAL DIAGNOSIS/MDM: Vitals: Vitals: 05/16/23 1809 BP: 118/55 Pulse: 60 Resp: 17 Temp: 36.9 C (98.5 F) TempSrc: Temporal SpO2: 99% Medications HYDROmorphone (Dilaudid) injection 0.5 mg (0.5 mg IntraMUSCular Given 05/16/231908) orphenadrine (Norflex) injection 60 mg (60 mg IntraMUSCular Given 05/16/232149) I independently evaluated the patient with supervising attending physician available as needed for collaboration. In brief, Oniel Norman is a 62 y.o. female who presented to the emergency department complaining of low back pain after a lumbar surgery that occurred on 05/06/2023. See HPI for further details. Nursing notes and medical records reviewed, patient recently had surgery on 05/06/[address] Kenney for lumbar spine. Differential considerations included surgical complication, hematoma, surgical site infection. Initial medical management includes Dilaudid given in ED for pain control. Initial workup includes CBC, BMP, ESR, CRP, CT lumbar spine. Lab workup results CBC shows no signs of leukocytosis. BMP shows no significant electrolyte abnormality. ESR is mildly elevated. CRP is mildly elevated 21.6. Imaging results per radiology CT lumbar spine shows posterior lateral fusion of L1-L4. Burst fracture of L3 appears to be acute or subacute. Chronic conditions contributing to patients presentation include recent surgery by Dr. Kenney on 05/06/2023. Social determinants to care: None noted. Consulted Ortho. Orthopedics recommended follow-up with [facility] as needed. Recommended intranasal calcitonin and muscle relaxer for patient's pain. Diagnosis status post lumbar spine operation. Disposition discharge home stable. Discussed work-up results with patient. Discussed orthopedic recommendations with patient. Patient demonstrated understanding. Prescribed patient intranasal calcitonin muscle relaxer to take as prescribed. Instructed patient to follow-up with her primary care provider in 2 to 3 days for reevaluation. Instructed patient to follow-up with [facility] as needed. Patient demonstrated understanding agree with this plan. Discussed ED return precautions, recommended consulting their primary doctor or returning to the ED if there are any new or worsening of symptoms, particularly redness, drainage from surgical site, fever. Follow-up PCP. Follow-up with [facility] as needed. PROCEDURES: Unless otherwise noted below, none Procedures FINAL IMPRESSION 1. S/P lumbar spine operation DISPOSITION Discharge 05/16/2023 09:40:01 PM PATIENT REFERRED TO: [facility] [address] [place] [id number] DISCHARGE MEDICATIONS: New Prescriptions CALCITONIN, SALMON, (MIACALCIN) 200 UNIT/ACT NASAL SPRAY Administer 1 spray into one nostril daily. CYCLOBENZAPRINE (FLEXERIL) 5 MG TABLET Take 1 tablet (5 mg) by mouth 3 times daily for 10 days. (Comment: Please note this report has been produced using speech recognition software and may contain errors related to that system including errors in grammar, punctuation, and spelling, as well as words and phrases that may be inappropriate. If there are any questions or concerns please feel free to contact the dictating provider for clarification.) ASTON Reid (electronically signed) Emergency Medicine Provider ASTON Reid 05/16/232199 [facility] 05-16-2023 Physician Emergency department Note In the absence of the provider I prescribed patient Muscle relaxer and intranasal calcitonin per request of orthopedics. Monalisa Burgos PA-C 05/16/232138 [facility] 05-10-2023 Evaluation + Plan note Associated Problem(s): Anxiety Refill of medications [facility] 05-10-2023 Miscellaneous Notes Associated Problem(s): Anxiety Refill of medications Associated Problem(s): Preop exam for internal medicine Medically cleared for surgery documented in this encounter [facility] 05-10-2023 Evaluation + Plan note Associated Problem(s): Preop exam for internal medicine Medically cleared for surgery [facility] 05-04-2023 History of Present illness Narrative Images from the original note were not included. Assessment Assessment/Plan: Problem List Anxiety Refill of medications Relevant Medications ALPRAZolam (XANAX) 0.5 MG tablet Other Relevant Orders Ambulatory referral to Social Work Financial difficulties - Primary Relevant Orders Ambulatory referral to Social Work Preop exam for internal medicine Medically cleared for surgery Return in about 6 weeks (around 06/15/2023) for Follow up Chronic Conditions. For any new medications prescribed today, patient was educated about indications for the medication, how to take the medication and potential side effects of the medications. Liliya Lara MD [facility] [address] [facility] [address] [facility] [id number] Dept: [phone] Subjective Chief Complaint Patient presents with Pre-op Exam Surgery on 05/06/23 HPI Oniel Norman is a 62 y.o. female Oniel Norman is a 61 y.o. female with a past medical history of osteoarthritis, CADs/p PCI and CABG (SVG-OM1, ROSAS-OM2, SVG-OM3), bipolar disorder, DJD, hypertension, GERD, anxiety, osteoporosis, migraines presenting for preoperative clearance. Patient was previously assessed by myself in October 2023 for perioperative clearance. She is status post left shoulder arthroplasty Completed by Dr Florez on 09/06/22, and is status post left hip arthroplasty in October 2022 No complications after these surgeries were reported Cathleen-operative Risk Evaluation (Based on AHA/ACC Guidelines): Procedure: Posterior lumbar fusion Date:05/06/23 Surgeon-Dr. Kenney-[facility] Revised Saini cardiac risk index (RCRI): -High-risk type of surgery- no (includes any intraperitoneal, intrathoracic, or suprainguinal vascular procedures) -History of ischemic heart disease- Yes history of OK or a positive exercise test, current complaint of chest pain considered to be secondary to myocardial ischemia, use of nitrate therapy, or ECG with pathological Q waves; do not count prior coronary revascularization procedure unless one of the other criteria for ischemic heart disease is present) -History of chronic heart failure No -History of cerebrovascular disease No -Diabetes mellitus requiring treatment with insulin No -Chronic Kidney Disease with preoperative serum creatinine >2.0 mg/dL (177 mol/L) No Risk of Major Adverse Cardiac Event (MACE - OK, Cardiac arrest or ) RCRI < 2 = MACE <1%, low risk RCRI = 2 = MACE = 1%, elevated-risk RCRI < 2 but high risk surgery = elevated-risk Physical Performance: Minimal Metabolic Equivalent of Task (MET) level was at 3-4: due to pain and decreased ROM, she is slowly recovering. She is able to walk >2 blocks without stopping, She is able to climb down stairs albeit slowly. Is able to go to work for 4 hours a day. Assessment and Plan: The patient's risk of Major Adverse Cardiac Events (MACE) perioperatively is low based on RCRI and AHA/ACC guidelines. EKG was not ordered by myself today. Medications Beta-blockers: -continue if patient is already taking (unless clinically contraindicated: hypotension, bradycardia, CHF etc) -do NOT start on the day of surgery -consider starting prior to surgery if: patient RCRI >3 and no contraindication Statin: -continue perioperatively unless contraindication Aspirin: -continue in patients with coronary artery disease or atrial fibrillation perioperatively Antihypertensives and diuretics: -in general, should be held on the day of surgery -these can be restarted when the patient's blood pressure is stable and renal function allows Dietary supplements -hold for one week prior to surgery NSAIDs: -hold one week prior to surgery Diabetes: -perioperatively BS should be maintained 140-180. -strictly controlling BS has been shown to worsen mortality in critically ill patients -hold metformin and other diabetes medications perioperatively and restart when the patient is eating and kidney function is stabilized Does have difficulties with finances and paying off her medical bills as she has had 3 surgeries in the last 8 months Would like to discuss options with social work All pertinent positives and negatives are documented in ROS Patient's medications, allergies, past medical history, surgical history history, family history, social history were reviewed. Spent more than 20 minutes with patient, coordinating patient care, including reviewing charts and counseling patient. 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) 10/05/2015 Bipolar disorder, most recent episode depressed ([facility]) 12/25/2020 Callus of foot interdigital on right foot CHF (congestive heart failure) ([facility]) Chronic prescription opiate use Circulation problem Controlled substance agreement signed Depression Hair loss Heart disease Hyperlipidemia Hypertension Left hip pain 07/26/2022 Migraine 12/25/2020 Myocardial infarct ([facility]) PT STATES SHE HAS HAD 10 HEART ATTACKS FROM 1999 TO 2004 Painful orthopaedic hardware ([facility]) Left first MPJ Weight loss Past Surgical History: Procedure Laterality Date ANGIOPLASTY X 4 APPENDECTOMY N/A BUNIONECTOMY N/A CABG N/A CORONARY ARTERY BYPASS GRAFT EYE SURGERY HERNIA REPAIR N/A JOINT REPLACEMENT knee replacement Right 20+ years ago OPEN HEART I & D ([facility]) 2003 OTHER SURGICAL HISTORY 2004 PER PT QUADRUPLE BYPASS TOTAL HIP ARTHROPLASTY Right 2017 TOTAL KNEE ARTHROPLASTY Left 2019 Family History Problem Relation Age of Onset Heart disease Mother Hypertension Mother Coronary artery disease Mother Arthritis Mother Heart disease Father Hypertension Father Bipolar disorder Father Other (BIPOLAR) Father COPD Father Diabetes Maternal Grandmother Social History Tobacco Use Smoking status: Former Types: Cigarettes Smokeless tobacco: Never Tobacco comments: QUIT IN 1999 Vaping Use Vaping Use: Never used Substance Use Topics Alcohol use: Not Currently Comment: occasionally Drug use: Never Allergies Allergen Reactions Iodine Anaphylaxis Penicillins Iodine And Iodide Containing Products Unknown Tdetpqow-Yaabngmoi-Psrkzftdjw rash and itching Adhesive Itching and Rash Plastic bandaids Ct: Iodinated Contrast- Oral And Iv Dye Unknown and Rash Neosporin (Mad-Yju-Bilfl) [Ddzdkraj-Zhygoesalh-Koegyzfgs] Rash Ointment only Patient's Medications New Prescriptions No medications on file Previous Medications ATORVASTATIN (LIPITOR) 80 MG TABLET Take 1 (one) tablet (80 mg total) by mouth daily . BUMETANIDE (BUMEX) 1 MG TABLET Take 1 (one) tablet (1 mg total) by mouth daily with breakfast . BUMETANIDE (BUMEX) 1 MG TABLET Take 1 (one) tablet (1 mg total) by mouth 2 (two) times a day for 5 days . CUSTOM PRESCRIPTION (E-PRESCRIBABLE) BEN peters . ISOSORBIDE MONONITRATE (IMDUR) 30 MG 24 HR TABLET Take 1 (one) tablet (30 mg total) by mouth daily . LAMOTRIGINE (LAMICTAL) 200 MG TABLET Take 1 (one) tablet (200 mg total) by mouth daily . LISINOPRIL (PRINIVIL,ZESTRIL) 2.5 MG TABLET Take 0.5 (one-half) tablet (1.25 mg total) by mouth daily . PANTOPRAZOLE (PROTONIX) 40 MG TABLET Take 1 (one) tablet (40 mg total) by mouth daily . TRAZODONE (DESYREL) 100 MG TABLET Take 2 (two) tablets (200 mg total) by mouth nightly . Modified Medications Modified Medication Previous Medication ALPRAZOLAM (XANAX) 0.5 MG TABLET ALPRAZolam (XANAX) 0.5 MG tablet Take 1 (one) tablet (0.5 mg total) by mouth nightly as needed for sleep . Take 1 (one) tablet (0.5 mg total) by mouth nightly as needed for sleep . ESCITALOPRAM OXALATE (LEXAPRO) 10 MG TABLET escitalopram oxalate (LEXAPRO) 10 MG tablet Take 1 (one) tablet (10 mg total) by mouth daily . Take 1 (one) tablet (10 mg total) by mouth daily . Discontinued Medications No medications on file Objective Vitals: 05/04/23 1844 BP: 96/66 BP Location: Right arm Patient Position: Sitting BP Cuff Size: X-large Adult Pulse: 97 Resp: 16 Temp: 98.2 F (36.8 C) TempSrc: Infrared SpO2: 98% Weight: 85.3 kg (188 lb) Height: 5' 6 Estimated body mass index is 30.34 kg/m as calculated from the following: Height as of this encounter: 5' 6 . Weight as of this encounter: 85.3 kg (188 lb). Physical Exam Vitals and nursing note reviewed. Constitutional: Appearance: Normal appearance. HENT: Head: Normocephalic and atraumatic. Nose: No nasal deformity or nasal tenderness. Mouth/Throat: Mouth: Mucous membranes are moist. Eyes: Extraocular Movements: Extraocular movements intact. Cardiovascular: Rate and Rhythm: Normal rate and regular rhythm. Heart sounds: Normal heart sounds. Pulmonary: Effort: Pulmonary effort is normal. No respiratory distress. Breath sounds: Normal breath sounds. No wheezing or rales. Chest: Chest wall: No tenderness or crepitus. There is no dullness to percussion. Abdominal: General: Abdomen is flat. There is no distension. Palpations: Abdomen is soft. Musculoskeletal: Left shoulder: Decreased range of motion: Improve range of motion. Lumbar back: Tenderness present. No swelling. Decreased range of motion. Right lower leg: Edema present. Left lower leg: Edema present. Skin: General: Skin is warm. Neurological: Mental Status: She is alert and oriented to person, place, and time. Sensory: Sensation is intact. Motor: Motor function is intact. Coordination: Coordination is intact. Gait: Gait abnormal. Psychiatric: Attention and Perception: Attention normal. She does not perceive auditory or visual hallucinations. Mood and Affect: Mood is not anxious or depressed. Affect is not tearful. Speech: Speech normal. Behavior: Behavior is cooperative. Thought Content: Thought content normal. Thought content is not paranoid or delusional. Thought content does not include homicidal or suicidal ideation. Thought content does not include homicidal or suicidal plan. Cognition and Memory: Cognition and memory normal. PHQ9: PHOEBE-7 Tobacco Counseling: Counseling given: Not Answered Tobacco comments: QUIT IN 1999 documented in this encounter [facility] 04-28-2023 Note HNO ID: [id number] Author: Efra Buck APRN.P[employer]CH [employer] Service: ? Author Type: Nurse Practitioner Type: Progress Notes Filed: 04/28/2023 10:53 AM Note Text: PRIMARY CARE PHYSICIAN: Liliya Lara [address] [phone] Chief Complaint Patient presents with: Cardiology Follow Up : CAD, CHF HISTORY OF PRESENT ILLNESS: Ms. Norman is a 62 year old female who is known to Dr. Espino last seeing him in the office in October 2022, she also follows with Dr. Woo at [facility] when she was seen by Dr. Espino for preoperative cardiovascular assessment for a left hip arthroplasty patient has a history of coronary artery disease status post coronary bypass graft surgery Patient is here today for cardiovascular assessment for a upcoming planned surgery at [facility] orthopedic surgery with Dr. Kenney for a posterior lumbar fusion L2-4. Patient has no cardiac complaints to offer, she remains very physically active unfortunately this back pain has lessened her physical ability however she still is able to maintain a part-time job at the local [employer]. She also notes several recent orthopedic surgeries and she has had no cardiology issues arise. PAST MEDICAL HISTORY Diagnosis Date Acute myocardial infarction, unspecified site 08/27/2001 Myocardial Infarction Bipolar disorder, unspecified (HCC) Compression fracture of L3 vertebra (HCC) Coronary artery disease Coronary atherosclerosis due to lipid rich plaque Depressive disorder, not elsewhere classified Generalized osteoarthrosis, unspecified site Hypertension Leg swelling Osteoporosis, unspecified PAST SURGICAL HISTORY Procedure Laterality Date CORONARY ARTERY BYP W/VEIN AND ARTERY GRAFT 4 VEIN PAST SURGICAL HISTORY OF menisectomy left knee PAST SURGICAL HISTORY OF arthroscopy both knees 3 times PAST SURGICAL HISTORY OF bunion right great toe repair PAST SURGICAL HISTORY OF Right hip PAST SURGICAL HISTORY OF Bilateral foot surgery STENT PLACEMENT 4 stents, unsucessful FAMILY HISTORY Problem Relation Age of Onset Hypertension Mother Heart Mother Heart Attack Mother S/p PCI/CABG Hyperlipidemia Mother Heart Failure Mother Hypertension Father Heart Father PPM Stroke Sister Heart Attack Brother Heart Attack Maternal Grandmother Diabetes Paternal Grandmother None Other no family h/o breast cancer Heart Maternal Uncle CABG Social History Tobacco Use Smoking status: Former Packs/day: 1.00 Years: 20.00 Pack years: 20.00 Types: Cigarettes Quit date: 08/27/2001 Years since quittin.6 Smokeless tobacco: Never Tobacco comments: d/c 08/27/01 Vaping Use Vaping Use: Never used Substance Use Topics Alcohol use: Yes Comment: occ wine Drug use: No ALLERGIES Allergen Reactions Adhesive Rash, Itching Plastic bandaids Iv Dye [Iodine] Anaphylaxis Neosporin [Neomycin* Rash, Itching Penicillins Other: See Comments convulsions Medications: Current Outpatient Medications Medication Sig Dispense Refill vit B complex no.12/niacin,B3, (VITAMIN B COMPLEX NO.12-NIACIN ORAL) Take by mouth once daily. multivitamin with minerals (HAIR,SKIN AND NAILS ORAL) Take by mouth once daily. bumetanide (BUMEX) 2 mg tablet Take 2 mg by mouth once daily. lisinopril 2.5 mg tablet Takes one-half tablet by mouth daily lamoTRIgine (LAMICTAL) 200 mg tablet Take 200 mg by mouth once daily. oxyCODONE-acetaminophen (PERCOCET) 5-325 mg tablet Take 1 tablet by mouth every 4 hours as needed for Pain. isosorbide mononitrate ER (IMDUR) 30 mg 24 hr tablet Take 1 tablet by mouth once daily. take one tablet daily 0 atorvastatin 80 mg tablet Take 80 mg by mouth once daily. pantoprazole 40 mg tablet Take 40 mg by mouth once daily. Aspirin 81 mg tab Take 81 mg by mouth once daily. traZODone (DESYREL) 100 mg tablet Take 100 mg by mouth daily at bedtime. 2 tabs at bedtime escitalopram oxalate (LEXAPRO) 5 mg tablet Take 5 mg by mouth once daily. No current facility-administered medications for this visit. Review of Systems Constitutional: Negative for malaise/fatigue. HENT: Negative for congestion. Eyes: Negative for blurred vision. Respiratory: Negative for shortness of breath. Cardiovascular: Negative for chest pain, palpitations, orthopnea and leg swelling. Gastrointestinal: Negative for blood in stool and nausea. Musculoskeletal: Positive for back pain and falls. Neurological: Negative for dizziness, tingling, speech change, loss of consciousness and weakness. Endo/Heme/Allergies: Does not bruise/bleed easily. Psychiatric/Behavioral: The patient does not have insomnia. Physical Examination: Vitals:BP 128/62 Pulse 53 Resp 18 Ht 5' 6 (1.68m) Wt 188 lb (85.3kg) SpO2 98[room air]% BMI 30.36 kg/(m2). Last 2 Encounter Wt Readings: Date: Wt: 11/03/2022 177 lb (80.3 (more content not included)... [facility] 04-28-2023 Instructions Efra Buck APRN.CNP - 04/28/2023 10:24 AM EDT Ok to hold asa 81mg for 5-7 days if needed. documented in this encounter [facility] 04-28-2023 History of Present illness Narrative PRIMARY CARE PHYSICIAN: Liliya Lara [address] [place] [address] Chief Complaint Patient presents with: Cardiology Follow Up : CAD, CHF HISTORY OF PRESENT ILLNESS: Ms. Norman is a 62 year old female who is known to Dr. Espino last seeing him in the office in October 2022, she also follows with Dr. Woo at [facility] when she was seen by Dr. Espino for preoperative cardiovascular assessment for a left hip arthroplasty patient has a history of coronary artery disease status post coronary bypass graft surgery Patient is here today for cardiovascular assessment for a upcoming planned surgery at [facility] orthopedic surgery with Dr. Kenney for a posterior lumbar fusion L2-4. Patient has no cardiac complaints to offer, she remains very physically active unfortunately this back pain has lessened her physical ability however she still is able to maintain a part-time job at the local [employer]. She also notes several recent orthopedic surgeries and she has had no cardiology issues arise. PAST MEDICAL HISTORY Diagnosis Date Acute myocardial infarction, unspecified site 08/27/2001 Myocardial Infarction Bipolar disorder, unspecified (HCC) Compression fracture of L3 vertebra (HCC) Coronary artery disease Coronary atherosclerosis due to lipid rich plaque Depressive disorder, not elsewhere classified Generalized osteoarthrosis, unspecified site Hypertension Leg swelling Osteoporosis, unspecified PAST SURGICAL HISTORY Procedure Laterality Date CORONARY ARTERY BYP W/VEIN & ARTERY GRAFT 4 VEIN PAST SURGICAL HISTORY OF menisectomy left knee PAST SURGICAL HISTORY OF arthroscopy both knees 3 times PAST SURGICAL HISTORY OF bunion right great toe repair PAST SURGICAL HISTORY OF Right hip PAST SURGICAL HISTORY OF Bilateral foot surgery STENT PLACEMENT 4 stents, unsucessful FAMILY HISTORY Problem Relation Age of Onset Hypertension Mother Heart Mother Heart Attack Mother S/p PCI/CABG Hyperlipidemia Mother Heart Failure Mother Hypertension Father Heart Father PPM Stroke Sister Heart Attack Brother Heart Attack Maternal Grandmother Diabetes Paternal Grandmother None Other no family h/o breast cancer Heart Maternal Uncle CABG Social History Tobacco Use Smoking status: Former Packs/day: 1.00 Years: 20.00 Pack years: 20.00 Types: Cigarettes Quit date: 08/27/2001 Years since quittin.6 Smokeless tobacco: Never Tobacco comments: d/c 08/27/01 Vaping Use Vaping Use: Never used Substance Use Topics Alcohol use: Yes Comment: occ wine Drug use: No ALLERGIES Allergen Reactions Adhesive Rash, Itching Plastic bandaids Iv Dye [Iodine] Anaphylaxis Neosporin [Neomycin* Rash, Itching Penicillins Other: See Comments convulsions Medications: Current Outpatient Medications Medication Sig Dispense Refill vit B complex no.12/niacin,B3, (VITAMIN B COMPLEX NO.12-NIACIN ORAL) Take by mouth once daily. multivitamin with minerals (HAIR,SKIN AND NAILS ORAL) Take by mouth once daily. bumetanide (BUMEX) 2 mg tablet Take 2 mg by mouth once daily. lisinopril 2.5 mg tablet Takes one-half tablet by mouth daily lamoTRIgine (LAMICTAL) 200 mg tablet Take 200 mg by mouth once daily. oxyCODONE-acetaminophen (PERCOCET) 5-325 mg tablet Take 1 tablet by mouth every 4 hours as needed for Pain. isosorbide mononitrate ER (IMDUR) 30 mg 24 hr tablet Take 1 tablet by mouth once daily. take one tablet daily 0 atorvastatin 80 mg tablet Take 80 mg by mouth once daily. pantoprazole 40 mg tablet Take 40 mg by mouth once daily. Aspirin 81 mg tab Take 81 mg by mouth once daily. traZODone (DESYREL) 100 mg tablet Take 100 mg by mouth daily at bedtime. 2 tabs at bedtime escitalopram oxalate (LEXAPRO) 5 mg tablet Take 5 mg by mouth once daily. No current facility-administered medications for this visit. Review of Systems Constitutional: Negative for malaise/fatigue. HENT: Negative for congestion. Eyes: Negative for blurred vision. Respiratory: Negative for shortness of breath. Cardiovascular: Negative for chest pain, palpitations, orthopnea and leg swelling. Gastrointestinal: Negative for blood in stool and nausea. Musculoskeletal: Positive for back pain and falls. Neurological: Negative for dizziness, tingling, speech change, loss of consciousness and weakness. Endo/Heme/Allergies: Does not bruise/bleed easily. Psychiatric/Behavioral: The patient does not have insomnia. Physical Examination: Vitals:BP 128/62 Pulse 53 Resp 18 Ht 5' 6 (1.68m) Wt 188 lb (85.3kg) SpO2 98[room air]% BMI 30.36 kg/(m^2). Last 2 Encounter Wt Readings: Date: Wt: 11/03/2022 177 lb (80.3 kg) 08/12/2022 175 lb (79.4 kg) Physical Exam Vitals and nursing note reviewed. Constitutional: Appearance: She is not diaphoretic. HENT: Head: Atraumatic. Right Ear: Hearing normal. Left Ear: Hearing normal. Nose: No nasal deformity, mucosal edema or rhinorrhea. Eyes: Extraocular Movements: Right eye: No nystagmus. Left eye: No nystagmus. Pupils: Pupils are equal, round, and reactive to light. Neck: Vascular: No carotid bruit, hepatojugular reflux or JVD. Trachea: No tracheal deviation. Cardiovascular: Rate and Rhythm: Regular rhythm. Bradycardia present. Chest Wall: PMI is not displaced. Pulses: Normal pulses. Heart sounds: Normal heart sounds. No murmur heard. Pulmonary: Effort: Pulmonary effort is normal. Breath sounds: Normal breath sounds. No stridor. Abdominal: General: Bowel sounds are normal. Palpations: Abdomen is soft. Tenderness: There is no abdominal tenderness. Musculoskeletal: General: Normal range of motion. Cervical back: Normal range of motion and neck supple. Skin: General: Skin is warm and dry. Coloration: Skin is not pale. Nails: There is no clubbing. Neurological: Mental Status: She is alert and oriented to person, place, and time. Cranial Nerves: No facial asymmetry. Motor: No weakness or abnormal muscle tone. Coordination: Coordination normal. Gait: Gait is intact. Gait normal. Psychiatric: Mood and Affect: Mood and affect normal. Cognition and Memory: Memory normal. Judgment: Judgment normal. Prior Cardiac Testing 12/25/21: Impression CONCLUSIONS: - Exam indication: Chest Pain - The left ventricle is normal in size. Left ventricular systolic function is normal. EF = 64 5% (2D biplane) Normal left ventricular diastolic function. No distinct regional wall motion abnormalities. - The right ventricle is normal in size. Right ventricular systolic function is normal. - The left atrial cavity is mildly dilated. - Estimated right ventricular systolic pressure is likely underestimated due to a weak or incomplete tricuspid regurgitation signal and is, at least, 24 mmHg consistent with normal pulmonary artery pressures. Estimated right atrial pressure is 3 mmHg based on IVC assessment. - There are no significant valvular abnormalities. - Exam was compared with the prior echocardiographic exam performed on 02/04/2012 ([facility]). Similar resting findings. 02/05/21: [facility]: Summary 1. Mildly enlarged left ventricular chamber. Normal wall thickness. Normal systolic function with no regional wall motion abnormalities with an estimated ejection fraction of 60-65%. 2. Right ventricular chamber dimension is normal. Right ventricular systolic function is normal. 3. Right atrial chamber dimension is enlarged. 4. No hemodynamically significant valvular disease. 5. There is no pulmonary hypertension, estimated right ventricle systolic pressure is 22 mmHg. Cardiac Catheterization: 12/28/21: DIAGNOSTIC FINDINGS + + Coronary Anatomy: Right Dominant Injection Site(s): Coronary Artery, Mammary Artery and Subclavian Artery LMT: _ The LMT has mild luminal irregularities. LAD: _ The LAD has mild diffuse disease. Additional Comment: - the LAD is a large caliber vessel. It gives rise to a small-medium caliber D1 branch and two small caliber D2 and D3 branches. The distal LAD is atretic and tapers before reaching the LV apex. LCX: _ The 1st obtuse marginal circumflex is narrowed 40 % - focal disease. _ The mid circumflex - DUDE RANCH MANAGER and ISR. Additional Comment: - the LCx is a large caliber vessel. It gives rise to a large caliber OM1 branch with a mild 30% proximal lesion and a moderate 40% mid-OM1 lesion. The LCx is then occluded d/t ISR in a mid-LCx stent just after the takeoff of the OM1 branch. The OM2 branch is a medium caliber vessel supplied by a patent ROSAS graft. The SVG-OM3 graft is known to be occluded and filling of this vessel is not visualized. There are R-Agnes collaterals to the AV circumflex artery from the rPL branch. RAMUS: _ The Ramus is Absent. RCA: _ The RCA has mild luminal irregularities. Additional Comment: - the RCA is a large caliber dominant vessel with mild luminal irregularities. It gives rise to a medium-large caliber rPDA and a medium caliber rPL branches. GRAFTS: _ Left Internal Mammary Artery Graft End to Side to the OM-2 Second Obtuse Marginal Branch . Additional Comments - - patent. _ Saphenous Vein Graft End to Side to the OM-1 First Obtuse Marginal Branch . Additional Comments - - known occluded. _ Saphenous Vein Graft End to Side to the OM-3 Third Obtuse Marginal Branch . Additional Comments - - known occluded. Impression: - LAD with mild diffuse disease - LCx with mild 30% lesion in the proximal OM1 with known occluded SVG-OM1; DUDE RANCH MANAGER of the mid LCx stent and patent ROSAS-OM2; SVG-OM3 graft is known to be occluded - RCA with mild luminal irregularities Recommended Treatment: Medical Therapy. 01/29/22: Patient Name: Oniel Norman : 1960 Ordering Provider: Low Mohr Indication: R00.1 Bradycardia, unspecified Type of Monitor: Extended Monitoring-Zio Patch Enrollment Dates: 01/08/2022-01/21/2022 Patient had a min HR of 39 bpm, max HR of 187 bpm, and avg HR of 61 bpm. Predominant underlying rhythm was Sinus Rhythm. 7 Supraventricular Tachycardia runs occurred, the run with the fastest interval lasting 8 beats with a max rate of 187 bpm, the longest lasting 15 beats with an avg rate of 129 bpm. Isolated SVEs were rare (<1.0%), SVE Couplets were rare (<1.0%), and SVE Triplets were rare (<1.0%). Isolated VEs were rare (<1.0%), VE Couplets were rare (<1.0%), and no VE Triplets were present. Ventricular Bigeminy was present. Inverted QRS complexes possibly due to inverted placement of device. Derian Aguiar MD 07/18/15; RIGHT SIDE Internal carotid artery: 20-39% stenosis. Vertebral artery: Patent and antegrade flow noted. LEFT SIDE Internal carotid artery: 0-19% stenosis. Vertebral artery: Patent and antegrade flow noted. Assessment and Plan: ASSESSMENT/PLAN: 1. S/P CABG x 3 - ICD9: V45.81, ICD10: Z95.1 (primary diagnosis) She has no anginal complaints December 2021 catheterization medicinal management was recommended - LAD with mild diffuse disease - LCx with mild 30% lesion in the proximal OM1 with known occluded SVG-OM1; DUDE RANCH MANAGER of the mid LCx stent and patent ROSAS-OM2; SVG-OM3 graft is known to be occluded - RCA with mild luminal irregularities Continue lisinopril 2.5 mg daily Imdur 30 mg daily Atorvastatin 80 mg daily Aspirin 81 mg daily, this can be held for 5 to 7 days preoperatively resume as soon as possible postprocedure at the direction of the surgeon Not on beta-blockade secondary to baseline bradycardia asymptomatic 2. Chronic heart failure with preserved ejection fraction (HCC) - ICD9: 428.9, ICD10: I50.32 Patient is euvolemic on exam 3. Preoperative cardiovascular examination - ICD9: V72.81, ICD10: Z01.810 In the absence of signs and symptoms of unstable angina, myocardial infarction, decompensated heart failure, severe aortic stenosis, malignant arrhythmias. In addition, they can engage in at least 4 METS of physical activity without cardiac limitations. RCRI is __6.6__ percent.Patient is at_moderate____ cardiac risk for myocardial Infarction, Pulmonary Edema, Ventricular Fibrillation, Cardiac Arrest or Complete Heart Block and is medically optimized for the same. Cardiac risk reviewed in detail with patient who voices understanding. A copy of the form has been provided to the patient as well as faxed to the performing provider. Please do not hesitate to consult cardiology if cardiac issues arise during the operative or postoperative period. Okay to stop aspirin 5 to 7 days prior to surgery, resume as soon as possible postprocedure at the direction of the performing surgeon - ECG B/O W INTERP (MED OFFICE) 4. Bradycardia Patient's EKG today demonstrates bradycardia, she is asymptomatic, in review of prior EKGs patient had bradycardia also she is asymptomatic. I did review with her that if she developed in the future any increasing fatigue, dizziness, near syncope. She should call us immediately and I would apply a monitor for serial review, she states her mother did have a pacemaker 5. Hyperlipidemia: On atorvastatin therapy Healthy diet structured exercise Efra Buck APRN.CNP Follow up planning: Call for questions or concerns. Return in 6 months Electronically signed by Efra Buck APRN.KATARINA The above note was partially created using a dictation recognition software. A reasonable attempt has been made to correct any errors. I spent >20 minutes in the visit, which included a review of the patients pertinent past medical history, history of present health status, review of systems, assessment & planning, counseling, and further coordination of care. documented in this encounter [facility] 04-28-2023 Nurse Note Pt has no cardiac complaints or symptoms documented in this encounter [facility] 02-23-2023 History of Present illness Narrative Attempted to call pt. No answer. VM left with office and contact information for a call back. Please advise patient medication was denied I would advise pt to use tylenol 500mg-1000mg tid as needed for pain Pt may supplement this with ibuprofen 200-400mg tid Cont to use ice packs as needed PA submitted as requested for Ketorolac 10mg tablets. PA was denied as pt must try and fail at least 2 covered medications. Please see scanned document for covered medication list. documented in this encounter [facility] 02-23-2023 History of Present illness Narrative Please advise patient medication was denied I would advise pt to use tylenol 500mg-1000mg tid as needed for pain Pt may supplement this with ibuprofen 200-400mg tid Cont to use ice packs as needed PA submitted as requested for Ketorolac 10mg tablets. PA was denied as pt must try and fail at least 2 covered medications. Please see scanned document for covered medication list. documented in this encounter [facility] 02-23-2023 Evaluation + Plan note Associated Problem(s): Lower extremity edema Advised pt to obtain BMP States lower ext edema has not improved Discussed elevating her legs and using compression stockings [facility] 02-23-2023 Miscellaneous Notes Associated Problem(s): Lower extremity edema Advised pt to obtain BMP States lower ext edema has not improved Discussed elevating her legs and using compression stockings Associated Problem(s): Rib pain Likely contusion Will order rib xrays as pt continues to complain of pain Advised pt to use ice packs as needed Analgesics recommended documented in this encounter [facility] 02-23-2023 Evaluation + Plan note Associated Problem(s): Rib pain Likely contusion Will order rib xrays as pt continues to complain of pain Advised pt to use ice packs as needed Analgesics recommended [facility] 02-23-2023 History of Present illness Narrative Images from the original note were not included. Assessment Assessment/Plan: Problem List Lower extremity edema Advised pt to obtain BMP States lower ext edema has not improved Discussed elevating her legs and using compression stockings Relevant Orders Basic Metabolic Panel Rib pain - Primary Likely contusion Will order rib xrays as pt continues to complain of pain Advised pt to use ice packs as needed Analgesics recommended Relevant Orders XR Ribs Left 3+ Views (Standard) XR Ribs Right 3+ Views (Standard) No follow-ups on file. For any new medications prescribed today, patient was educated about indications for the medication, how to take the medication and potential side effects of the medications. Liliya Lara MD [facility] [address] [facility] [address] [facility] [address] Dept: [phone] Subjective Chief Complaint Patient presents with Transition Of Care Follow up - FALL HPI Oniel Norman is a 62 y.o. female past medical history of osteoarthritis, CADs/p PCI and CABG (SVG-OM1, ROSAS-OM2, SVG-OM3), bipolar disorder, DJD, hypertension, GERD, anxiety, osteoporosis, insomnia, migraines presenting s/p fall Was seen in ED on 02/14/23 after mechanical fall-patient states that she was trying to take her bed outside of her home and fell on her steps. On 01/19/2023, patient received shingles vaccine in her right arm. CT maxillofacial bones, CT head, CT cervical spine did not show any acute abnormality though there was Soft tissue swelling seen in the soft tissues around the nose. X-ray of ribs was completed which showed old fracture deformity in posterior lateral seventh right rib but no acute fractures Pt continues to have pain that is band line around her chest, below her ribs. states having difficulty taking a deep breath in as it is painful. She denies any shortness of breath or coughing. she states bruising has been improving but the pain is 9/10, she was unable to sleep last night due to the discomfort. she has not tried any additional analgesics but hsa been using ice. Pt is comfortable at rest Physical exam showed tenderness to palpation around areas of bruising on R/L lateral chest wall and sternum States her lower ext edema has worsened - pt was advised to take bumex 1mg AM and PM X3 days and then go back to 1mg Am and 0.5mg pM and have bmp completed after 3 days to verify kidney function. She did not have blood work completed. She states her lower ext edema has worsened over the last week. It does improve when she keeps her legs elevated. She does not wear compression stockings All pertinent positives and negatives are documented in ROS Patient's medications, allergies, past medical history, surgical history history, family history, social history were reviewed. Spent more than 20 minutes with patient, coordinating patient care, including reviewing charts and counseling patient. 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) 10/05/2015 Bipolar disorder, most recent episode depressed ([facility]) 12/25/2020 Callus of foot interdigital on right foot CHF (congestive heart failure) ([facility]) Chronic prescription opiate use Circulation problem Controlled substance agreement signed Depression Hair loss Heart disease Hyperlipidemia Hypertension Left hip pain 07/26/2022 Migraine 12/25/2020 Myocardial infarct ([facility]) PT STATES SHE HAS HAD 10 HEART ATTACKS FROM 1999 TO 2003 Painful orthopaedic hardware ([facility]) Left first MPJ Weight loss Past Surgical History: Procedure Laterality Date ANGIOPLASTY X 4 APPENDECTOMY N/A BUNIONECTOMY N/A CABG N/A CORONARY ARTERY BYPASS GRAFT EYE SURGERY HERNIA REPAIR N/A JOINT REPLACEMENT knee replacement Right 20+ years ago OPEN HEART I & D ([facility]) 2003 OTHER SURGICAL HISTORY 2004 PER PT QUADRUPLE BYPASS TOTAL HIP ARTHROPLASTY Right 2017 TOTAL KNEE ARTHROPLASTY Left 2019 Family History Problem Relation Age of Onset Heart disease Mother Hypertension Mother Coronary artery disease Mother Arthritis Mother Heart disease Father Hypertension Father Bipolar disorder Father Other (BIPOLAR) Father COPD Father Diabetes Maternal Grandmother Social History Tobacco Use Smoking status: Former Types: Cigarettes Smokeless tobacco: Never Tobacco comments: QUIT IN 1999 Vaping Use Vaping status: Never Used Substance Use Topics Alcohol use: Not Currently Comment: occasionally Drug use: Never Allergies Allergen Reactions Iodine Anaphylaxis Penicillins Iodine And Iodide Containing Products Unknown Iednoagg-Qaxprkhzn-Adqawwebsw rash and itching Adhesive Itching and Rash Plastic bandaids Ct: Iodinated Contrast- Oral And Iv Dye Unknown and Rash Neosporin (Zhy-Cib-Ticfr) [Ibkzefyu-Jojauivpjh-Hggmxprfp] Rash Ointment only Patient's Medications New Prescriptions KETOROLAC (TORADOL) 10 MG TABLET Take 1 (one) tablet (10 mg total) by mouth every 6 (six) hours as needed for pain . Previous Medications ALPRAZOLAM (XANAX) 0.5 MG TABLET Take 1 (one) tablet (0.5 mg total) by mouth nightly as needed for sleep . ATORVASTATIN (LIPITOR) 80 MG TABLET Take 1 (one) tablet (80 mg total) by mouth daily . BUMETANIDE (BUMEX) 1 MG TABLET Take 1 (one) tablet (1 mg total) by mouth daily with breakfast . BUMETANIDE (BUMEX) 1 MG TABLET Take 1 (one) tablet (1 mg total) by mouth 2 (two) times a day for 5 days . ESCITALOPRAM OXALATE (LEXAPRO) 10 MG TABLET Take 1 (one) tablet (10 mg total) by mouth daily . ISOSORBIDE MONONITRATE (IMDUR) 30 MG 24 HR TABLET Take 1 (one) tablet (30 mg total) by mouth daily . LAMOTRIGINE (LAMICTAL) 200 MG TABLET Take 1 (one) tablet (200 mg total) by mouth daily . LISINOPRIL (PRINIVIL,ZESTRIL) 2.5 MG TABLET Take 0.5 (one-half) tablet (1.25 mg total) by mouth daily . PANTOPRAZOLE (PROTONIX) 40 MG TABLET Take 1 (one) tablet (40 mg total) by mouth daily . TRAZODONE (DESYREL) 100 MG TABLET Take 2 (two) tablets (200 mg total) by mouth nightly . Modified Medications No medications on file Discontinued Medications No medications on file Objective Vitals: 02/23/23 0735 BP: 124/82 BP Location: Right arm Patient Position: Sitting BP Cuff Size: X-large Adult Pulse: (!) 58 Resp: 16 Temp: 98.4 F (36.9 C) TempSrc: Temporal SpO2: 94% Height: 5' 6 Estimated body mass index is 29.34 kg/m as calculated from the following: Height as of this encounter: 5' 6 . Weight as of 02/01/23: 82.5 kg (181 lb 12.8 oz). Physical Exam Vitals and nursing note reviewed. Constitutional: Appearance: Normal appearance. HENT: Head: Normocephalic and atraumatic. Nose: No nasal deformity or nasal tenderness. Mouth/Throat: Mouth: Mucous membranes are moist. Eyes: Extraocular Movements: Extraocular movements intact. Cardiovascular: Rate and Rhythm: Normal rate and regular rhythm. Heart sounds: Normal heart sounds. Pulmonary: Effort: Pulmonary effort is normal. No respiratory distress. Breath sounds: Normal breath sounds. No wheezing or rales. Chest: Chest wall: Tenderness present. No crepitus. There is no dullness to percussion. Abdominal: General: Abdomen is flat. There is no distension. Palpations: Abdomen is soft. Musculoskeletal: Left shoulder: Decreased range of motion: Improve range of motion. Left hip: No tenderness. Normal range of motion. Normal strength. Right lower leg: Edema present. Left lower leg: Edema present. Skin: General: Skin is warm. Neurological: General: No focal deficit present. Mental Status: She is alert and oriented to person, place, and time. Mental status is at baseline. Sensory: Sensation is intact. Motor: Motor function is intact. Coordination: Coordination is intact. Gait: Gait is intact. Psychiatric: Attention and Perception: Attention normal. She does not perceive auditory or visual hallucinations. Mood and Affect: Mood is not anxious or depressed. Affect is not tearful. Speech: Speech normal. Behavior: Behavior is cooperative. Thought Content: Thought content normal. Thought content is not paranoid or delusional. Thought content does not include homicidal or suicidal ideation. Thought content does not include homicidal or suicidal plan. Cognition and Memory: Cognition and memory normal. PHQ9: PHOEBE-7 Tobacco Counseling: Counseling given: Not Answered Tobacco comments: QUIT IN 1999 documented in this encounter [facility] 02-17-2023 History of Present illness Narrative [facility] reached out to patient in 3rd attempt regarding BH referral placed by PCP. [facility] left message including contact information with request for a return call. This is the final attempt. documented in this encounter [facility] 01-26-2023 Instructions Liliya Lara MD - 01/26/2023 12:58 PM EDT Problem List Items Addressed This Visit Endocrine Impaired glucose tolerance in obese Will get ha1c Relevant Orders Hemoglobin A1c Cardiovascular and Mediastinum CAD (coronary artery disease), [place] coronary artery Refill on medications Relevant Medications isosorbide mononitrate (IMDUR) 30 MG 24 hr tablet Other Relevant Orders Hemoglobin A1c Migraine Has been using acetaminophen- ineffective Was previously using imitrex nurtec and ubrevly were quite costly- approx 200-300 out of pocket despite insurance coverage Was on gabapentin- this did not help Elavil was ineffective Will start effexor 37.5 mg daily X 7 days then increase to twice daily If sx do not improve, will place neurology referral Relevant Medications traZODone (DESYREL) 100 MG tablet Chronic heart failure with preserved ejection fraction (HCC) Advised pt to increase bumex- start taking 1mg in AM and 0.5mg pm She was only taking 0.5mg nightly because she did not want this to interfere with work -advised pt to complete labs in the next few days Relevant Medications isosorbide mononitrate (IMDUR) 30 MG 24 hr tablet Other Relevant Orders NT PRO BNP Other Anxiety - Primary Cont w/ lamictal discontinued lexapro 10mg- previously was helping pt was now states it has not helped w/ the anxiety Discontinued hydroxyzine-ineffective buspar had side effects Was on elavil and gabapentin for pain and migraines- did not help w/ anxiety symptoms Will start effexor Short course of xanax prescribed - advised patient I would not continue this custodial referral placed for medication management Relevant Medications ALPRAZolam (XANAX) 0.5 MG tablet Other Relevant Orders Ambulatory referral to Behavioral Health TSH with Reflex Free T4 Hemoglobin A1c Drugs of Abuse Screen, Urine Ambulatory Ref to [facility] [employer] Bipolar disorder, most recent episode depressed (HCC) Continue with Lamictal 200 mg daily Lexapro did not help with her symptoms We will start Effexor today Psychiatry referral placed Relevant Medications traZODone (DESYREL) 100 MG tablet ALPRAZolam (XANAX) 0.5 MG tablet venlafaxine (EFFEXOR) 37.5 MG tablet Other Relevant Orders Ambulatory referral to Behavioral Health Hypercholesterolemia Relevant Orders Hemoglobin A1c Insomnia Refill on trazodone Discontinue elavil Will start effexor- advised pt I would like her anxiety controlled which I believe is contributing to her symptoms Do not take xanax to help w/ insomnia Relevant Medications traZODone (DESYREL) 100 MG tablet Other Relevant Orders Ambulatory Ref to [facility] [employer] Vitamin D deficiency Relevant Orders Vitamin D, Total, 25-OH Therapeutic drug monitoring Relevant Orders Drugs of Abuse Screen, Urine Low vitamin D level We will get updated vitamin D level Status post arthroscopy of left shoulder Status post arthroscopy of hip If any referrals were placed at the time of your visit please allow 2 weeks for processing. If you haven't heard from anyone within 2 weeks please contact my office so we can look into the status of your referral. If you were given any labs today please ensure they are completed according to the directions given. Most normal results will be available through [facility] however if abnormal, you will be notified. Please allow 48-72 hours for review, and let you know what steps, if any, are needed next. If you haven't heard from us after that please call to inquire. If labs were ordered to be done PRIOR to your next visit we will discuss the results at the time of your office visit. If any procedures or imaging studies were ordered that must be prior authorized please give us 2 weeks to get them approved. Once approved someone should call you to schedule them or give you a date and time that they were scheduled for. If you haven't heard anything within 2 weeks of the office visit please call the office so we can look into their status. Customer Service/Billing Questions: [phone] [facility] Assistance: [phone] or [phone] Financial Assistance: [phone] or [phone] documented in this encounter [facility] 01-26-2023 Evaluation + Plan note Associated Problem(s): Low vitamin D level We will get updated vitamin D level [facility] 01-26-2023 Evaluation + Plan note Associated Problem(s): Bipolar disorder, most recent episode depressed (HCC) Continue with Lamictal 200 mg daily Lexapro did not help with her symptoms We will start Effexor today Psychiatry referral placed [facility] 01-26-2023 Miscellaneous Notes Associated Problem(s): Low vitamin D level We will get updated vitamin D level Associated Problem(s): Bipolar disorder, most recent episode depressed (HCC) Continue with Lamictal 200 mg daily Lexapro did not help with her symptoms We will start Effexor today Psychiatry referral placed Associated Problem(s): Chronic heart failure with preserved ejection fraction (HCC) Advised pt to increase bumex- start taking 1mg in AM and 0.5mg pm She was only taking 0.5mg nightly because she did not want this to interfere with work -advised pt to complete labs in the next few days Associated Problem(s): Migraine Has been using acetaminophen- ineffective Was previously using imitrex nurtec and ubrevly were quite costly- approx 200-300 out of pocket despite insurance coverage Was on gabapentin- this did not help Elavil was ineffective Will start effexor 37.5 mg daily X 7 days then increase to twice daily If sx do not improve, will place neurology referral Associated Problem(s): Impaired glucose tolerance in obese Will get ha1c Associated Problem(s): CAD (coronary artery disease), [place] coronary artery Refill on medications Associated Problem(s): Anxiety Cont w/ lamictal discontinued lexapro 10mg- previously was helping pt was now states it has not helped w/ the anxiety Discontinued hydroxyzine-ineffective buspar had side effects Was on elavil and gabapentin for pain and migraines- did not help w/ anxiety symptoms Will start effexor Short course of xanax prescribed - advised patient I would not continue this supervisor intermediates BH referral placed for medication management Associated Problem(s): Insomnia Refill on trazodone Discontinue elavil Will start effexor- advised pt I would like her anxiety controlled which I believe is contributing to her symptoms Do not take xanax to help w/ insomnia documented in this encounter [facility] 01-17-2023 Evaluation + Plan note Associated Problem(s): Chronic heart failure with preserved ejection fraction (HCC) Advised pt to increase bumex- start taking 1mg in AM and 0.5mg pm She was only taking 0.5mg nightly because she did not want this to interfere with work -advised pt to complete labs in the next few days [facility] 01-17-2023 Evaluation + Plan note Associated Problem(s): Migraine Has been using acetaminophen- ineffective Was previously using imitrex nurtec and ubrevly were quite costly- approx 200-300 out of pocket despite insurance coverage Was on gabapentin- this did not help Elavil was ineffective Will start effexor 37.5 mg daily X 7 days then increase to twice daily If sx do not improve, will place neurology referral [facility] 01-17-2023 Evaluation + Plan note Associated Problem(s): Impaired glucose tolerance in obese Will get ha1c [facility] 01-17-2023 Evaluation + Plan note Associated Problem(s): CAD (coronary artery disease), [place] coronary artery Refill on medications [facility] 01-17-2023 Evaluation + Plan note Associated Problem(s): Anxiety Cont w/ lamictal discontinued lexapro 10mg- previously was helping pt was now states it has not helped w/ the anxiety Discontinued hydroxyzine-ineffective buspar had side effects Was on elavil and gabapentin for pain and migraines- did not help w/ anxiety symptoms Will start effexor Short course of xanax prescribed - advised patient I would not continue this custodial BH referral placed for medication management [facility] 01-17-2023 Evaluation + Plan note Associated Problem(s): Insomnia Refill on trazodone Discontinue elavil Will start effexor- advised pt I would like her anxiety controlled which I believe is contributing to her symptoms Do not take xanax to help w/ insomnia [facility] 01-17-2023 Telephone encounter Note Pt requesting refill, she needs this sent to local pharmacy. She had appointment with gary rush, 01/17/23. [facility] 01-17-2023 Miscellaneous Notes Pt requesting refill, she needs this sent to local pharmacy. She had appointment with gary rush, 01/17/23. documented in this encounter [facility] 01-17-2023 History of Present illness Narrative Images from the original note were not included. Assessment Assessment/Plan: Problem List Anxiety - Primary Cont w/ lamictal discontinued lexapro 10mg- previously was helping pt was now states it has not helped w/ the anxiety Discontinued hydroxyzine-ineffective buspar had side effects Was on elavil and gabapentin for pain and migraines- did not help w/ anxiety symptoms Will start effexor Short course of xanax prescribed - advised patient I would not continue this supervisor intermediates BH referral placed for medication management Relevant Medications ALPRAZolam (XANAX) 0.5 MG tablet Other Relevant Orders Ambulatory referral to Behavioral Health TSH with Reflex Free T4 Hemoglobin A1c Drugs of Abuse Screen, Urine Ambulatory Ref to [facility] [employer] Bipolar disorder, most recent episode depressed (HCC) Continue with Lamictal 200 mg daily Lexapro did not help with her symptoms We will start Effexor today Psychiatry referral placed Relevant Medications traZODone (DESYREL) 100 MG tablet ALPRAZolam (XANAX) 0.5 MG tablet venlafaxine (EFFEXOR) 37.5 MG tablet Other Relevant Orders Ambulatory referral to [facility] CAD (coronary artery disease), [place] coronary artery Refill on medications Relevant Medications isosorbide mononitrate (IMDUR) 30 MG 24 hr tablet Other Relevant Orders Hemoglobin A1c Hypercholesterolemia Relevant Orders Hemoglobin A1c Insomnia Refill on trazodone Discontinue elavil Will start effexor- advised pt I would like her anxiety controlled which I believe is contributing to her symptoms Do not take xanax to help w/ insomnia Relevant Medications traZODone (DESYREL) 100 MG tablet Other Relevant Orders Ambulatory Ref to [facility] [employer] Migraine Has been using acetaminophen- ineffective Was previously using imitrex nurtec and ubrevly were quite costly- approx 200-300 out of pocket despite insurance coverage Was on gabapentin- this did not help Elavil was ineffective Will start effexor 37.5 mg daily X 7 days then increase to twice daily If sx do not improve, will place neurology referral Relevant Medications traZODone (DESYREL) 100 MG tablet Vitamin D deficiency Relevant Orders Vitamin D, Total, 25-OH Chronic heart failure with preserved ejection fraction (HCC) Advised pt to increase bumex- start taking 1mg in AM and 0.5mg pm She was only taking 0.5mg nightly because she did not want this to interfere with work -advised pt to complete labs in the next few days Relevant Medications isosorbide mononitrate (IMDUR) 30 MG 24 hr tablet Other Relevant Orders NT PRO BNP Impaired glucose tolerance in obese Will get ha1c Relevant Orders Hemoglobin A1c Therapeutic drug monitoring Relevant Orders Drugs of Abuse Screen, Urine Low vitamin D level We will get updated vitamin D level Status post arthroscopy of left shoulder Status post arthroscopy of hip Return in about 6 months (around 07/20/2023) for Follow up Chronic Conditions. For any new medications prescribed today, patient was educated about indications for the medication, how to take the medication and potential side effects of the medications. Liliya Lara MD [facility] [address] [facility] [address] [facility] [id number] Dept: [phone] Subjective Chief Complaint Patient presents with Insomnia HPI Oniel Norman is a 62 y.o. female past medical history of osteoarthritis, CADs/p PCI and CABG (SVG-OM1, ROSAS-OM2, SVG-OM3), bipolar disorder, DJD, hypertension, GERD, anxiety, osteoporosis, insomnia, migraines presenting for a follow up of her chronic conditions S/p left shoulder arthroscopy- 09/06/2020- improved ROM and reduced pain. Seems to be doing much better S/p Left hip arthroplasty 11/04/22- significantly reduced pain. Able to ambulate much better. Denies any acute complaints. Bipolar disorder/anxiety- on Lamictal 200mg daily. Uncontrolled sx w/ axniety and insomnia. We will start Effexor we will start Effexor today. We discussed benzodiazepines are not the best treatment interest anxiety symptoms however I will be willing to give a 7-day course over the next few days. Patient is currently on trazodone to 100 mg nightly. I do believe that this is due to her uncontrolled anxiety symptoms. Patient would like to follow-up with counseling services however she is financially strained at this time and cannot afford this. We also had extensive discussion about following up with psychiatry for medication management Acute anxiety- Currently on lamictal for bipolar disorder. Was on lexapro 10mg prior to surgery. [place] like this did not help with anxiety symptoms She does not feel like hydroxyzine helps. Buspar caused side effects. She was taking gabapentin for pain and elavil for migraine prophylaxsis but this did not help with acute anxiety. She has some xanax that she will use to help her sleep at night. She is requesting refill. Advised pt I would not want to cont this custodial as it is not the best medication for anxiety or for insomnia. We discussed referral to psychiatry for management. She states out of pocket cost has prevented her in the past from seeing counseling- advised patient we would be placing referral for psychiatry specifcally. She did have social work referral placed to discuss options for counseling. Laura did reach out to pt in May 2022 but there was no response. Advised pt we would send referral once again. No Si/HI or thoughts or self harm. All pertinent positives and negatives are documented in ROS Patient's medications, allergies, past medical history, surgical history history, family history, social history were reviewed. Spent more than 45 minutes with patient, coordinating patient care, including reviewing charts and counseling patient. 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) 12/25/2020 Callus of foot interdigital on right foot Chronic prescription opiate use Circulation problem Controlled substance agreement signed Depression Hair loss Heart disease Hyperlipidemia Hypertension Left hip pain 07/26/2022 Migraine 12/25/2020 Myocardial infarct (HCC) PT STATES SHE HAS HAD 10 HEART ATTACKS FROM 1999 TO 2003 Painful orthopaedic hardware (HCC) Left first MPJ Weight loss Past Surgical History: Procedure Laterality Date ANGIOPLASTY X 4 APPENDECTOMY N/A BUNIONECTOMY N/A CABG N/A CORONARY ARTERY BYPASS GRAFT EYE SURGERY HERNIA REPAIR N/A JOINT REPLACEMENT knee replacement Right 20+ years ago OPEN HEART I & D (GEN[facility]) 2004 OTHER SURGICAL HISTORY 2004 PER PT QUADRUPLE BYPASS TOTAL HIP ARTHROPLASTY Right 2017 TOTAL KNEE ARTHROPLASTY Left 2019 Family History Problem Relation Age of Onset Heart disease Mother Hypertension Mother Coronary artery disease Mother Heart disease Father Hypertension Father Bipolar disorder Father Other (BIPOLAR) Father COPD Father Diabetes Maternal Grandmother Social History Tobacco Use Smoking status: Former Types: Cigarettes Smokeless tobacco: Never Tobacco comments: QUIT IN 1999 Vaping Use Vaping Use: Never used Substance Use Topics Alcohol use: Yes Comment: occasionally Drug use: Never Allergies Allergen Reactions Iodine Anaphylaxis Penicillins Iodine And Iodide Containing Products Unknown Wbwyaqkc-Qajcsnicy-Peesrbzzyf rash and itching Adhesive Itching and Rash Plastic bandaids Ct: Iodinated Contrast- Oral And Iv Dye Unknown and Rash Neosporin (Ell-Eef-Kdwjw) [Jqdskqpb-Mrinexdlro-Mygrotiuk] Rash Ointment only Patient's Medications New Prescriptions VENLAFAXINE (EFFEXOR) 37.5 MG TABLET Take 1 tab X 7 days then increase to twice daily . Previous Medications ATORVASTATIN (LIPITOR) 80 MG TABLET Take 1 (one) tablet (80 mg total) by mouth daily . BUMETANIDE (BUMEX) 0.5 MG TABLET Take 1 (one) tablet (0.5 mg total) by mouth nightly . BUMETANIDE (BUMEX) 1 MG TABLET Take 1 (one) tablet (1 mg total) by mouth daily with breakfast . LAMOTRIGINE (LAMICTAL) 200 MG TABLET Take 1 (one) tablet (200 mg total) by mouth daily . LISINOPRIL (PRINIVIL,ZESTRIL) 2.5 MG TABLET Take 0.5 (one-half) tablet (1.25 mg total) by mouth daily . Modified Medications Modified Medication Previous Medication ALPRAZOLAM (XANAX) 0.5 MG TABLET ALPRAZolam (XANAX) 0.5 MG tablet Take 1 (one) tablet (0.5 mg total) by mouth nightly as needed for sleep . Take 1 (one) tablet (0.5 mg total) by mouth nightly as needed for sleep . ISOSORBIDE MONONITRATE (IMDUR) 30 MG 24 HR TABLET isosorbide mononitrate (IMDUR) 30 MG 24 hr tablet Take 1 (one) tablet (30 mg total) by mouth daily . Take 1 (one) tablet (30 mg total) by mouth daily . PANTOPRAZOLE (PROTONIX) 40 MG TABLET pantoprazole (PROTONIX) 40 MG tablet Take 1 (one) tablet (40 mg total) by mouth daily . Take 1 (one) tablet (40 mg total) by mouth daily . TRAZODONE (DESYREL) 100 MG TABLET traZODone (DESYREL) 100 MG tablet Take 2 (two) tablets (200 mg total) by mouth nightly . Take 2 (two) tablets (200 mg total) by mouth nightly . Discontinued Medications AMITRIPTYLINE (ELAVIL) 10 MG TABLET Take 1 (one) tablet (10 mg total) by mouth nightly FOR MIGRAINES . OXYCODONE-ACETAMINOPHEN (PERCOCET) 5-325 MG PER TABLET Take 1 (one) tablet by mouth every 6 (six) hours as needed for pain . Objective Vitals: 01/17/23 1818 BP: 139/79 BP Location: Left arm Patient Position: Sitting BP Cuff Size: X-large Adult Pulse: 63 Resp: 16 Temp: 98 F (36.7 C) TempSrc: Infrared SpO2: 99% Weight: 81.6 kg (180 lb) Height: 5' 6 Estimated body mass index is 29.05 kg/m as calculated from the following: Height as of this encounter: 5' 6 . Weight as of this encounter: 81.6 kg (180 lb). Physical Exam Vitals and nursing note reviewed. Constitutional: Appearance: Normal appearance. HENT: Head: Normocephalic and atraumatic. Mouth/Throat: Mouth: Mucous membranes are moist. Eyes: Extraocular Movements: Extraocular movements intact. Cardiovascular: Rate and Rhythm: Regular rhythm. Bradycardia present. Heart sounds: Normal heart sounds. Pulmonary: Effort: Pulmonary effort is normal. Breath sounds: Normal breath sounds. Chest: Chest wall: No tenderness. Abdominal: General: Abdomen is flat. There is no distension. Palpations: Abdomen is soft. Musculoskeletal: Right shoulder: No tenderness. Normal strength. Left shoulder: No tenderness. Normal range of motion (Improve range of motion). Normal strength. Right forearm: No tenderness or bony tenderness. Left forearm: No tenderness or bony tenderness. Arms: Left hip: No tenderness. Normal range of motion. Normal strength. Skin: General: Skin is warm. Neurological: General: No focal deficit present. Mental Status: She is alert and oriented to person, place, and time. Mental status is at baseline. Sensory: Sensation is intact. Motor: Motor function is intact. Coordination: Coordination is intact. Gait: Gait is intact. Psychiatric: Attention and Perception: Attention normal. She does not perceive auditory or visual hallucinations. Mood and Affect: Mood is anxious and depressed. Affect is tearful. Speech: Speech normal. Behavior: Behavior is cooperative. Thought Content: Thought content normal. Thought content is not paranoid or delusional. Thought content does not include homicidal or suicidal ideation. Thought content does not include homicidal or suicidal plan. Cognition and Memory: Cognition and memory normal. PHQ9: PHOEBE-7 Tobacco Counseling: Counseling given: Not Answered Tobacco comments: QUIT IN 1999 documented in this encounter [facility] 11-03-2022 History of Present illness Narrative Images from the original note were not included. PRIMARY CARE PHYSICIAN: Renee Sierra NP [address] [place] [address] HISTORY OF PRESENT ILLNESS: Ms. Norman is a 61 year old female who presents today for a cardiovascular medicine 3-month visit. CARDIOVASCULAR PROBLEMS: 1. Coronary atherosclerosis due to lipid rich plaque - ICD9: 414.3, ICD10: I25.10, I25.83 (primary diagnosis) 2. Pre-operative cardiovascular examination - ICD9: V72.81, ICD10: Z01.810 3. 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 S/P angioplasty with stent - ICD9: V45.89, ICD10: Z95.820 5. Chronic heart failure with preserved ejection fraction (HCC) - ICD9: 428.9, ICD10: I50.32 Patient is contemplating left hip arthrosis plasty. This is scheduled for tomorrow. She has a history of coronary artery disease, cardiac stents and triple-vessel bypass. Her last cardiac catheterization was done earlier this year which revealed graft patency and medical therapy was advised. She does not endorse any symptoms to suggest overt cardiac ischemia or symptoms of CHF decompensation. Of note, the patient has had multiple orthopedic surgeries including bilateral foot surgery bilateral knees, right hip replacement, left shoulder replacement, she is now contemplating left hip arthroplasty. Oniel denies any other active cardiac symptoms. Specifically, the patient denies chest pain, shortness of breath, orthopnea, cough, edema, palpitations, PND, lightheadedness or syncope. The Patient claims compliance with medications and reports no side effects or allergies. Test results were reviewed with the patient. Recatheterization was reviewed. Implications of findings were explained in layman's terms.. HISTORICAL DATA UPDATED: 10/15/2022 CARDIAC RISK FACTORS: Smoking: No Diabetes: No Lipids: Yes Obesity: MIld overweight. HTN: Yes Sedentary Lifestyle: No Family History of M.A.C.E: No CHF: No PVD/Stroke /TIA: No MOST RECENT CARDIAC TESTING: Echo: 12/25/21: Impression CONCLUSIONS: - Exam indication: Chest Pain - The left ventricle is normal in size. Left ventricular systolic function is normal. EF = 64 5% (2D biplane) Normal left ventricular diastolic function. No distinct regional wall motion abnormalities. - The right ventricle is normal in size. Right ventricular systolic function is normal. - The left atrial cavity is mildly dilated. - Estimated right ventricular systolic pressure is likely underestimated due to a weak or incomplete tricuspid regurgitation signal and is, at least, 24 mmHg consistent with normal pulmonary artery pressures. Estimated right atrial pressure is 3 mmHg based on IVC assessment. - There are no significant valvular abnormalities. - Exam was compared with the prior echocardiographic exam performed on 02/04/2012 ([place]). Similar resting findings. 02/05/21: [facility]: Summary 1. Mildly enlarged left ventricular chamber. Normal wall thickness. Normal systolic function with no regional wall motion abnormalities with an estimated ejection fraction of 60-65%. 2. Right ventricular chamber dimension is normal. Right ventricular systolic function is normal. 3. Right atrial chamber dimension is enlarged. 4. No hemodynamically significant valvular disease. 5. There is no pulmonary hypertension, estimated right ventricle systolic pressure is 22 mmHg. Cardiac Catheterization: 12/28/21: DIAGNOSTIC FINDINGS + + Coronary Anatomy: Right Dominant Injection Site(s): Coronary Artery, Mammary Artery and Subclavian Artery LMT: _ The LMT has mild luminal irregularities. LAD: _ The LAD has mild diffuse disease. Additional Comment: - the LAD is a large caliber vessel. It gives rise to a small-medium caliber D1 branch and two small caliber D2 and D3 branches. The distal LAD is atretic and tapers before reaching the LV apex. LCX: _ The 1st obtuse marginal circumflex is narrowed 40 % - focal disease. _ The mid circumflex - DUDE RANCH MANAGER and ISR. Additional Comment: - the LCx is a large caliber vessel. It gives rise to a large caliber OM1 branch with a mild 30% proximal lesion and a moderate 40% mid-OM1 lesion. The LCx is then occluded d/t ISR in a mid-LCx stent just after the takeoff of the OM1 branch. The OM2 branch is a medium caliber vessel supplied by a patent ROSAS graft. The SVG-OM3 graft is known to be occluded and filling of this vessel is not visualized. There are R-Agnes collaterals to the AV circumflex artery from the rPL branch. RAMUS: _ The Ramus is Absent. RCA: _ The RCA has mild luminal irregularities. Additional Comment: - the RCA is a large caliber dominant vessel with mild luminal irregularities. It gives rise to a medium-large caliber rPDA and a medium caliber rPL branches. GRAFTS: _ Left Internal Mammary Artery Graft End to Side to the OM-2 Second Obtuse Marginal Branch . Additional Comments - - patent. _ Saphenous Vein Graft End to Side to the OM-1 First Obtuse Marginal Branch . Additional Comments - - known occluded. _ Saphenous Vein Graft End to Side to the OM-3 Third Obtuse Marginal Branch . Additional Comments - - known occluded. Impression: - LAD with mild diffuse disease - LCx with mild 30% lesion in the proximal OM1 with known occluded SVG-OM1; DUDE RANCH MANAGER of the mid LCx stent and patent ROSAS-OM2; SVG-OM3 graft is known to be occluded - RCA with mild luminal irregularities Recommended Treatment: Medical Therapy. 09/13/2006: [facility]-: Summary 45 year-old female with known CAD s/p PCI and CABG (SVG-OM1, ROSAS-OM2, SVG-OM3) presents for angiography to evaluate her complaint of back pain. Today's study demonstrated moderate disease (40%) in the proximal portion of the LAD. The LAD was a short vessel that stopped short of the apex. There was a non-obstructive myocardial bridge in the mid portion of the LAD. The LCx was non-dominant vessel that gave off a large OM1 branch. There was moderate disease in this branch. The OM2 branch was previously stent and was completely occluded within the stent. The AV continuation of the LCx was severely diseased (99%) after the OM2 branch. The distal LCx filled via right to left collaterals. The RCA was a dominant vessel with mild diffuse disease. The catheterization findings were not significantly changed from 04/29/05. Plan is to continue medical therapy. Recommendations : Med [place] Holter / Event Recorder : 01/29/22: Patient Name: Oniel Norman : 1960 Ordering Provider: Low Mohr Indication: R00.1 Bradycardia, unspecified Type of Monitor: Extended Monitoring-Zio Patch Enrollment Dates: 01/08/2022-01/21/2022 Patient had a min HR of 39 bpm, max HR of 187 bpm, and avg HR of 61 bpm. Predominant underlying rhythm was Sinus Rhythm. 7 Supraventricular Tachycardia runs occurred, the run with the fastest interval lasting 8 beats with a max rate of 187 bpm, the longest lasting 15 beats with an avg rate of 129 bpm. Isolated SVEs were rare (<1.0%), SVE Couplets were rare (<1.0%), and SVE Triplets were rare (<1.0%). Isolated VEs were rare (<1.0%), VE Couplets were rare (<1.0%), and no VE Triplets were present. Ventricular Bigeminy was present. Inverted QRS complexes possibly due to inverted placement of device. Derian Aguiar MD Stress Test : 09/12/15: CONCLUSIONS: 1. Perfusion study: Abnormal. 2. Functional capacity N/A (pharmacological). 3. There is a small (<10%) fixed perfusion defect in the LCX territory with mild periinfarct ischemia. 4. Left ventricle is normal in size. the left ventricle systolic function is normal. 5. Rest LVEF is 66 %. The Stress LVEF is 69 %. 6. Right ventricle is normal in size The right ventricle systolic function is normal. 7. This is a low risk scan. 09/07/13: CONCLUSIONS: 1. Perfusion study: Normal Study. 2. No evidence of infarct or ischemia. 3. Left ventricle is normal in size. The left ventricle systolic function is normal. 4. Right ventricle is normal in size. 5. The Stress LVEF is 67 %. 6. Change in breast position observed between rest and stress. AC performed with improvement. TILT: === Device: ==== Vasc: 07/18/15; RIGHT SIDE Internal carotid artery: 20-39% stenosis. Vertebral artery: Patent and antegrade flow noted. LEFT SIDE Internal carotid artery: 0-19% stenosis. Vertebral artery: Patent and antegrade flow noted. Technologist: Romario Guerra RVT, RDAL Ordering physician: SELENE WOO Interpreting physician: Joyce Ley MD, RVT, RPVI PAST CARDIAC/VASCULAR EVENTS: CABG PCI ALLERGIES Allergen Reactions Adhesive Rash, Itching Plastic bandaids Iv Dye [Iodine] Anaphylaxis Neosporin [Neomycin* Rash, Itching Penicillins Other: See Comments convulsions MEDICATIONS: vit B complex no.12/niacin,B3, (VITAMIN B COMPLEX NO.12-NIACIN ORAL)^Take by mouth once daily.^Disp: ^Rfl: multivitamin with minerals (HAIR,SKIN AND NAILS ORAL)^Take by mouth once daily.^Disp: ^Rfl: bumetanide (BUMEX) 2 mg tablet^Take 2 mg by mouth once daily.^Disp: ^Rfl: lisinopril 2.5 mg tablet^Takes one-half tablet by mouth daily^Disp: ^Rfl: lamoTRIgine (LAMICTAL) 200 mg tablet^Take 200 mg by mouth once daily.^Disp: ^Rfl: oxyCODONE-acetaminophen (PERCOCET) 5-325 mg tablet^Take 1 tablet by mouth every 4 hours as needed for Pain.^Disp: ^Rfl: isosorbide mononitrate ER (IMDUR) 30 mg 24 hr tablet^Take 1 tablet by mouth once daily. take one tablet daily^Disp: ^Rfl: 0 atorvastatin 80 mg tablet^Take 80 mg by mouth once daily.^Disp: ^Rfl: pantoprazole 40 mg tablet^Take 40 mg by mouth once daily.^Disp: ^Rfl: Aspirin 81 mg tab^Take 81 mg by mouth once daily.^Disp: ^Rfl: traZODone (DESYREL) 100 mg tablet^Take 200 mg by mouth daily at bedtime.^Disp: ^Rfl: (Patient not taking: Reported on 11/03/2022) ibuprofen (MOTRIN) 600 mg tablet^Take 1 tablet by mouth every 6 hours as needed.^Disp: 15 tablet^Rfl: 0 REVIEW OF SYSTEMS: GENERAL: negative for: fevers, chills, and change in weight HEENT: negative for: headaches, hearing loss, difficulty swallowing, visual changes, nose bleeds, dentures, own teeth SKIN: rashes, lesions, and ulcers RESPIRATORY: SEE HPI CARDIOVASCULAR: See HPI GASTROINTESTINAL: negative for: abdominal pain, nausea, vomiting, difficulty or painful swallowing, and melanotic stools GENITOURINARY: negative for: dysuria, frequency, nocturia, and male potency MUSCULOSKELETAL: negative for: joint pain, joint swelling, muscle pain or myalgias, and pain with walking NEUROLOGIC: negative for: numbness, tingling, and sensation of pins and needles HEMATOLOGY: negative for: bruising easily, prolonged bleeding, anemia, and cancer ENDOCRINE: negative for: cold or heat intolerance, polyuria, polydipsia, goiter, diabetes, and thyroid disease PSYCH: negative for: sleep disturbance, mood disorders, and recent psychosocial stressors PHYSICAL EXAMINATION: BP 122/78 Pulse 69 Resp 18 Ht 5' 6 (1.68m) Wt 177 lb (80.3kg) SpO2 98% BMI 28.58 kg/(m^2). General: Well appearing, in no acute distress. Skin: No clubbing, no cyanosis. Eyes: Extra ocular movements intact Oropharynx: Teeth in good repair. Neck: No jugular venous distention, no carotid bruits, carotids have a normal upstroke, no palpable thyromegaly. Lungs: Clear to auscultation bilaterally, no wheezing or rhonchi. Heart: Regular rhythm, PMI not displaced, S1, S2 normal, no S3, no S4, no heaves, no rub and no murmur. Abdomen: Soft, nontender, bowel sounds normal, no palpable organomegaly, no bruits. Extremities: No peripheral edema . Grade 2/4 distal pulses bilaterally. Neuro: Oriented to person, place and time, alert, cooperative, gait coordinated uses a cane for balance CARDIOVASCULAR MEDICINE TESTING: Electrocardiogram: Sinus bradycardia otherwise unremarkable tracing I have personally reviewed the Electrocardiogram. CMP: Glucose 121 12/16/2021 BUN 10 12/16/2021 Creatinine 0.81 12/16/2021 Sodium 139 12/16/2021 Potassium 3.5 12/16/2021 Chloride 101 12/16/2021 CO2 Content, Venous 26 12/16/2021 Protein, Total 6.8 12/16/2021 Albumin 4.7 12/16/2021 Calcium 9.3 12/16/2021 Alkaline Phosphatase 126 12/16/2021 Bilirubin, Total 0.6 12/16/2021 AST 21 12/16/2021 ALT 18 12/16/2021 Hemoglobin (g/dL) Date Value 12/16/2021 14.6 Hematocrit (%) Date Value 12/16/2021 43.5 WBC (k/uL) Date Value 12/16/2021 6.50 Platelet Count (k/uL) Date Value 12/16/2021 192 Hemoglobin A1C (%) Date Value 03/17/2018 5.4 01/14/2015 5.7 09/07/2013 5.5 02/24/2009 5.8 TSH Date Value Ref Range Status 01/19/2017 1.750 0.400 - 5.500 uU/mL Final IMPRESSION: Ms. Norman is a 61 year old female with a history of coronary artery disease status post coronary stent and triple-vessel bypass. She is maintained on medical therapy which includes high intensity statins isosorbide and aspirin. The patient does not tolerate beta-blockade due to intrinsic bradycardia. She has no active cardiac symptoms. I do not see any significant issues with further delay her surgery. She had cardiac catheterization earlier in the year. At that time, medical therapy was recommended. She has done well since then. Her overall risk for perioperative cardiac events is intermediate. - Planned Surgical Procedure: Left hip arthroplasty, with estimated procedural risk: moderate Cardiac diagnosis: Coronary artery disease, history of coronary stent deployment, status post triple-vessel coronary artery bypass grafting, hyperlipidemia, hypertension, chronic heart failure with preserved ejection fraction. Bradycardia Estimated cardiovascular risk: moderate. Estimated overall risk of cathleen-operative cardicac morbidity/mortality for the planned procedure: usual Additional pre-operative cardiac testing is not necessary. Cathleen-operative beta-cristiana is not recommended due to intrinsic bradycardia Exercise capacity estimated at 6 METS Last assessed ejection fraction: 64% Anticoagulation/ Antiplatelet therapy: Aspirin 81 mg daily. This should be continued Last EK11/03/22: Sinus bradycardia, otherwise normal tracing. Metabolic: Current metabolic data is not available 11/03/22 Cardiology will remain available during the perioperative stages. Please do not hesitate to call if the need arises PLAN AND RECOMMENDATIONS: Follow-up with general cardiology 6 months. She wishes to be followed at our [place] location, we will acquiesce. documented in this encounter [facility] 11-03-2022 Nurse Note Patient has no cardiac complaints today. Joan Corey CMA documented in this encounter [facility] 11-03-2022 Miscellaneous Notes Summary: records in opd file Received 2 pages from [facility] documented in this encounter [facility] 10-26-2022 Instructions Liliya Lara MD - 10/26/2022 11:53 AM EST Problem List Items Addressed This Visit Cardiovascular and Mediastinum CAD (coronary artery disease), [place] coronary artery Refill on medications Relevant Medications atorvastatin (LIPITOR) 80 MG tablet lisinopriL (PRINIVIL,ZESTRIL) 2.5 MG tablet bumetanide (BUMEX) 1 MG tablet isosorbide mononitrate (IMDUR) 30 MG 24 hr tablet Migraine Has been using imitrex despite being discontinued due to underlying heart disease. she also states that this did not control her symptoms nurtec and ubrevly were quite costly- approx 200-300 out of pocket despite insurance coverage Was on gabapentin- this did not help Was prescribed elavil for prophylaxis advised pt to start taking this nightly Relevant Medications lamoTRIgine (LAMICTAL) 200 MG tablet traZODone (DESYREL) 100 MG tablet amitriptyline (ELAVIL) 10 MG tablet Other Insomnia Refill on trazodone Advised pt to take elavil 10mg nightly Relevant Medications traZODone (DESYREL) 100 MG tablet Preop exam for internal medicine - Primary Medically cleared for surgery Relevant Orders CBC and Differential Comprehensive Metabolic Panel PT/INR If any referrals were placed at the time of your visit please allow 2 weeks for processing. If you haven't heard from anyone within 2 weeks please contact my office so we can look into the status of your referral. If you were given any labs today please ensure they are completed according to the directions given. Most normal results will be available through [employer] however if abnormal, you will be notified. Please allow 48-72 hours for review, and let you know what steps, if any, are needed next. If you haven't heard from us after that please call to inquire. If labs were ordered to be done PRIOR to your next visit we will discuss the results at the time of your office visit. If any procedures or imaging studies were ordered that must be prior authorized please give us 2 weeks to get them approved. Once approved someone should call you to schedule them or give you a date and time that they were scheduled for. If you haven't heard anything within 2 weeks of the office visit please call the office so we can look into their status. Customer Service/Billing Questions: [phone] [facility] Assistance: [phone] or [phone] Financial Assistance: [phone] or [phone] documented in this encounter [facility] 10-26-2022 Evaluation + Plan note Associated Problem(s): Migraine Has been using imitrex despite being discontinued due to underlying heart disease. she also states that this did not control her symptoms nurtec and ubrevly were quite costly- approx 200-300 out of pocket despite insurance coverage Was on gabapentin- this did not help Was prescribed elavil for prophylaxis advised pt to start taking this nightly [facility] 10-26-2022 Miscellaneous Notes Associated Problem(s): Migraine Has been using imitrex despite being discontinued due to underlying heart disease. she also states that this did not control her symptoms nurtec and ubrevly were quite costly- approx 200-300 out of pocket despite insurance coverage Was on gabapentin- this did not help Was prescribed elavil for prophylaxis advised pt to start taking this nightly Associated Problem(s): CAD (coronary artery disease), [place] coronary artery Refill on medications Associated Problem(s): Preop exam for internal medicine Medically cleared for surgery Associated Problem(s): Insomnia Refill on trazodone Advised pt to take elavil 10mg nightly documented in this encounter [facility] 10-26-2022 History of Present illness Narrative Patient requested to be scheduled in Dec 2022 Images from the original note were not included. Assessment Assessment/Plan: Problem List CAD (coronary artery disease), [place] coronary artery Refill on medications Relevant Medications atorvastatin (LIPITOR) 80 MG tablet lisinopriL (PRINIVIL,ZESTRIL) 2.5 MG tablet bumetanide (BUMEX) 1 MG tablet isosorbide mononitrate (IMDUR) 30 MG 24 hr tablet Insomnia Refill on trazodone Advised pt to take elavil 10mg nightly Relevant Medications traZODone (DESYREL) 100 MG tablet Migraine Has been using imitrex despite being discontinued due to underlying heart disease. she also states that this did not control her symptoms nurtec and ubrevly were quite costly- approx 200-300 out of pocket despite insurance coverage Was on gabapentin- this did not help Was prescribed elavil for prophylaxis advised pt to start taking this nightly Relevant Medications lamoTRIgine (LAMICTAL) 200 MG tablet traZODone (DESYREL) 100 MG tablet amitriptyline (ELAVIL) 10 MG tablet Preop exam for internal medicine - Primary Medically cleared for surgery Relevant Orders CBC and Differential Comprehensive Metabolic Panel PT/INR Return in about 3 months (around 01/24/2023) for Annual Exam. For any new medications prescribed today, patient was educated about indications for the medication, how to take the medication and potential side effects of the medications. Liliya Lara MD [facility] [address] [facility] [address] [facility] [id number] Dept: [phone] Subjective Chief Complaint Patient presents with Follow-up 8 week fu CC HPI Oniel Norman is a 61 y.o. female with a past medical history of osteoarthritis, CADs/p PCI and CABG (SVG-OM1, ROSAS-OM2, SVG-OM3), bipolar disorder, DJD, hypertension, GERD, anxiety, osteoporosis, migraines presenting for preoperative clearance. She is status post left shoulder arthroplasty- approx [address] Florez on 09/06/22. Unfortunately PT/OT was not completely covered by insurance and she has been completing exercises at home. Cathleen-operative Risk Evaluation (Based on AHA/ACC Guidelines): Procedure: Left total hip arthroplasty -Intermediate risk Date:11/04/22 Surgeon- Dr Byrd Revised Saini cardiac risk index (RCRI): -High-risk type of surgery- No (includes any intraperitoneal, intrathoracic, or suprainguinal vascular procedures) -History of ischemic heart disease- Yes history of OK or a positive exercise test, current complaint of chest pain considered to be secondary to myocardial ischemia, use of nitrate therapy, or ECG with pathological Q waves; do not count prior coronary revascularization procedure unless one of the other criteria for ischemic heart disease is present) -History of chronic heart failure No -History of cerebrovascular disease No -Diabetes mellitus requiring treatment with insulin No -Chronic Kidney Disease with preoperative serum creatinine >2.0 mg/dL (177 mol/L) No Risk of Major Adverse Cardiac Event (MACE - OK, Cardiac arrest or ) RCRI < 2 = MACE <1%, low risk RCRI = 2 = MACE = 1%, elevated-risk RCRI < 2 but high risk surgery = elevated-risk Physical Performance: Minimal Metabolic Equivalent of Task (MET) level at 4: due to pain and decreased ROM, as well as pt being s/p surgical intervention with Left shoulder arthoplasty, she is slowly recovering. She is able to walk >2 blocks without stopping, She is able to climb down stairs albeit slowly. Assessment and Plan: The patient's risk of Major Adverse Cardiac Events (MACE) perioperatively is low based on RCRI and AHA/ACC guidelines. 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 EKG was not ordered by myself today. Medications Beta-blockers: -continue if patient is already taking (unless clinically contraindicated: hypotension, bradycardia, CHF etc) -do NOT start on the day of surgery -consider starting prior to surgery if: patient RCRI >3 and no contraindication Statin: -continue perioperatively unless contraindication Aspirin: -continue in patients with coronary artery disease or atrial fibrillation perioperatively Antihypertensives and diuretics: -in general, should be held on the day of surgery -these can be restarted when the patient's blood pressure is stable and renal function allows Dietary supplements -hold for one week prior to surgery NSAIDs: -hold one week prior to surgery Diabetes: -perioperatively BS should be maintained 140-180. -strictly controlling BS has been shown to worsen mortality in critically ill patients -hold metformin and other diabetes medications perioperatively and restart when the patient is eating and kidney function is stabilized Migraine headaches- pt continues to have headaches and has been taking imitrex. Advised patient that we discontinued medication as her cardiac history increases the risk of cardiac events with this medication. She was precribed [employer] in the past which was approved but had a 300$ copay and pt was not eligible for savings card. Ubrevly was also not covered. She also tried gabapentin which was ineffective. Patient was not aware she was supposed to be taking elavil nightly. We discussed this can help with depression, migraines and with sleep. Pt does have increased anxiety symptoms- she discontinued lexapro and hydroxyzine. She is only taking lamictal. Advised pt to take elavil as it can help with her symptoms and we can change medications if needed. She verbalized understanding All pertinent positives and negatives are documented in ROS Patient's medications, allergies, past medical history, surgical history history, family history, social history were reviewed. Spent more than 40 minutes with patient, coordinating patient care, including reviewing charts and counseling patient. 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) 10/05/2015 Bipolar disorder, most recent episode depressed (HCC) 12/25/2020 Callus of foot interdigital on right foot Chronic prescription opiate use Circulation problem Controlled substance agreement signed Depression Hair loss Heart disease Hyperlipidemia Hypertension Left hip pain 07/26/2022 Migraine 12/25/2020 Myocardial infarct (HCC) PT STATES SHE HAS HAD 10 HEART ATTACKS FROM 1999 TO 2003 Painful orthopaedic hardware (HCC) Left first MPJ Weight loss Past Surgical History: Procedure Laterality Date ANGIOPLASTY X 4 APPENDECTOMY N/A BUNIONECTOMY N/A CABG N/A CORONARY ARTERY BYPASS GRAFT EYE SURGERY HERNIA REPAIR N/A JOINT REPLACEMENT knee replacement Right 20+ years ago OPEN HEART I & D (GENL) 2003 OTHER SURGICAL HISTORY 2004 PER PT QUADRUPLE BYPASS TOTAL HIP ARTHROPLASTY Right 2017 TOTAL KNEE ARTHROPLASTY Left 2019 Family History Problem Relation Age of Onset Heart disease Mother Hypertension Mother Coronary artery disease Mother Heart disease Father Hypertension Father Bipolar disorder Father Other (BIPOLAR) Father COPD Father Diabetes Maternal Grandmother Social History Tobacco Use Smoking status: Former Types: Cigarettes Smokeless tobacco: Never Tobacco comments: QUIT IN 1999 Vaping Use Vaping Use: Never used Substance Use Topics Alcohol use: Yes Comment: occasionally Drug use: Never Allergies Allergen Reactions Iodine Anaphylaxis Penicillins Iodine And Iodide Containing Products Unknown Esluxtsx-Spbbkokkp-Tqticxfqre rash and itching Adhesive Itching and Rash Plastic bandaids Ct: Iodinated Contrast- Oral And Iv Dye Unknown and Rash Neosporin (Ebl-Nni-Efivs) [Syjhbkic-Eeozbcbqly-Qhsdpgzir] Rash Ointment only Patient's Medications New Prescriptions AMITRIPTYLINE (ELAVIL) 10 MG TABLET Take 1 (one) tablet (10 mg total) by mouth nightly FOR MIGRAINES . Previous Medications ALPRAZOLAM (XANAX) 0.5 MG TABLET Take 1 (one) tablet (0.5 mg total) by mouth nightly as needed for sleep . BUMETANIDE (BUMEX) 0.5 MG TABLET Take 1 (one) tablet (0.5 mg total) by mouth nightly . OXYCODONE-ACETAMINOPHEN (PERCOCET) 5-325 MG PER TABLET Take 1 (one) tablet by mouth every 6 (six) hours as needed for pain . Modified Medications Modified Medication Previous Medication ATORVASTATIN (LIPITOR) 80 MG TABLET atorvastatin (LIPITOR) 80 MG tablet Take 1 (one) tablet (80 mg total) by mouth daily . Take 1 (one) tablet (80 mg total) by mouth daily . BUMETANIDE (BUMEX) 1 MG TABLET bumetanide (BUMEX) 1 MG tablet Take 1 (one) tablet (1 mg total) by mouth daily with breakfast . Take 1 (one) tablet (1 mg total) by mouth daily with breakfast Start: 04/21/22. ISOSORBIDE MONONITRATE (IMDUR) 30 MG 24 HR TABLET isosorbide mononitrate (IMDUR) 30 MG 24 hr tablet Take 1 (one) tablet (30 mg total) by mouth daily . Take 1 (one) tablet (30 mg total) by mouth daily . LAMOTRIGINE (LAMICTAL) 200 MG TABLET lamoTRIgine (LAMICTAL) 200 MG tablet Take 1 (one) tablet (200 mg total) by mouth daily . Take 1 (one) tablet (200 mg total) by mouth daily . LISINOPRIL (PRINIVIL,ZESTRIL) 2.5 MG TABLET lisinopriL (PRINIVIL,ZESTRIL) 2.5 MG tablet Take 0.5 (one-half) tablet (1.25 mg total) by mouth daily . Take 0.5 (one-half) tablet (1.25 mg total) by mouth daily . PANTOPRAZOLE (PROTONIX) 40 MG TABLET pantoprazole (PROTONIX) 40 MG tablet Take 1 (one) tablet (40 mg total) by mouth daily . Take 1 (one) tablet (40 mg total) by mouth daily . TRAZODONE (DESYREL) 100 MG TABLET traZODone (DESYREL) 100 MG tablet Take 2 (two) tablets (200 mg total) by mouth nightly . Take 2 (two) tablets (200 mg total) by mouth nightly . Discontinued Medications AMITRIPTYLINE (ELAVIL) 10 MG TABLET ESCITALOPRAM OXALATE (LEXAPRO) 5 MG TABLET Take 2 (two) tablets (10 mg total) by mouth daily . Objective Vitals: 10/26/22 1028 BP: 119/80 BP Location: Right arm Patient Position: Sitting BP Cuff Size: Adult Pulse: 64 Resp: 16 Temp: 98.4 F (36.9 C) TempSrc: Temporal SpO2: 98% Weight: 77.1 kg (170 lb) Height: 5' 6 Estimated body mass index is 27.44 kg/m as calculated from the following: Height as of this encounter: 5' 6 . Weight as of this encounter: 77.1 kg (170 lb). Physical Exam Vitals and nursing note reviewed. Constitutional: Appearance: Normal appearance. HENT: Head: Normocephalic and atraumatic. Mouth/Throat: Mouth: Mucous membranes are moist. Eyes: Extraocular Movements: Extraocular movements intact. Cardiovascular: Rate and Rhythm: Regular rhythm. Bradycardia present. Heart sounds: Normal heart sounds. Pulmonary: Effort: Pulmonary effort is normal. Breath sounds: Normal breath sounds. Chest: Chest wall: No tenderness. Abdominal: General: Abdomen is flat. There is no distension. Palpations: Abdomen is soft. Musculoskeletal: Left shoulder: Tenderness present. Decreased strength. Right forearm: No tenderness or bony tenderness. Left forearm: No tenderness or bony tenderness. Arms: Left hip: Decreased range of motion. Decreased strength. Comments: Kiarra test + on left hip Decreased strength 2/2 to pain Skin: General: Skin is warm. Neurological: General: No focal deficit present. Mental Status: She is alert and oriented to person, place, and time. Mental status is at baseline. Sensory: Sensation is intact. Motor: Motor function is intact. Coordination: Coordination is intact. Gait: Gait is intact. Psychiatric: Attention and Perception: Attention normal. She does not perceive auditory or visual hallucinations. Mood and Affect: Mood is anxious and depressed. Affect is tearful. Speech: Speech normal. Behavior: Behavior is cooperative. Thought Content: Thought content normal. Thought content is not paranoid or delusional. Thought content does not include homicidal or suicidal ideation. Thought content does not include homicidal or suicidal plan. Cognition and Memory: Cognition and memory normal. PHQ9: PHOEBE-7 Tobacco Counseling: Counseling given: Not Answered Tobacco comments: QUIT IN 1999 documented in this encounter [facility] 10-26-2022 Evaluation + Plan note Associated Problem(s): CAD (coronary artery disease), [place] coronary artery Refill on medications [facility] 10-26-2022 Evaluation + Plan note Associated Problem(s): Preop exam for internal medicine Medically cleared for surgery [facility] 10-26-2022 Evaluation + Plan note Associated Problem(s): Insomnia Refill on trazodone Advised pt to take elavil 10mg nightly [facility] 10-25-2022 Miscellaneous Notes Spoke to Dr Wagner. He will need to see patient in order to sign cardiac clearance forms as she was to follow up in 6 months from [facility]. Was due to be seen in June 2022. Does appear patient has an appt on 11/03/[address] Espino for Cardiac Clearance. Elli Crow RN Summary: OG in opd file Images from the original note were not included. documented in this encounter [facility] 08-12-2022 Nurse Note NO CARDIAC COMPLAINTS TODAY documented in this encounter [facility] 08-12-2022 History of Present illness Narrative Images from the original note were not included. PRIMARY CARE PHYSICIAN: Renee Sierra NP [address] [place] [address] HISTORY OF PRESENT ILLNESS: Ms. Norman is a 61 year old female who presents today for a cardiovascular medicine preop visit. CARDIOVASCULAR PROBLEMS: 1. Coronary atherosclerosis due to lipid rich plaque - ICD9: 414.3, ICD10: I25.10, I25.83 (primary diagnosis) 2. Hypertension, unspecified type - ICD9: 401.9, ICD10: I10 3. Sinus bradycardia - ICD9: 427.89, ICD10: R00.1 4. Beta-cristiana intolerance - ICD9: 995.27, ICD10: Z78.9 5. S/P CABG x 3 - ICD9: V45.81, ICD10: Z95.1 6. Mixed hyperlipidemia - ICD9: 272.2, ICD10: E78.2 7. S/P angioplasty with stent - ICD9: V45.89, ICD10: Z95.820 She is contemplating having multiple orthopedic surgeries at the [facility]. The patient has no coronary artery disease history of stenting and subsequent bypass grafting. Early this year she experiences interscapular pain. Her work-up was negative she still Dr. Woo at [facility]. Patient underwent diagnostic angiography which confirmed occlusion of 2 grafts patent ROSAS to the last obtuse marginal branch. All major coronary trunks were patent and with minimal luminal irregularities. That she was maintained on medical therapy. The patient has had no recurrent anginal symptoms nor symptoms to suggest ischemia or malignant arrhythmias.. Oniel denies any other active cardiac symptoms. HISTORICAL DATA UPDATED: 08/06/2022 CARDIAC RISK FACTORS: Smoking: No Diabetes: No Lipids: Yes Obesity: MIld overweight. HTN: Yes Sedentary Lifestyle: No Family History of M.A.C.E: No CHF: No PVD/Stroke /TIA: No MOST RECENT CARDIAC TESTING: Echo: 12/25/21: Impression CONCLUSIONS: - Exam indication: Chest Pain - The left ventricle is normal in size. Left ventricular systolic function is normal. EF = 64 5% (2D biplane) Normal left ventricular diastolic function. No distinct regional wall motion abnormalities. - The right ventricle is normal in size. Right ventricular systolic function is normal. - The left atrial cavity is mildly dilated. - Estimated right ventricular systolic pressure is likely underestimated due to a weak or incomplete tricuspid regurgitation signal and is, at least, 24 mmHg consistent with normal pulmonary artery pressures. Estimated right atrial pressure is 3 mmHg based on IVC assessment. - There are no significant valvular abnormalities. - Exam was compared with the prior echocardiographic exam performed on 02/04/2012 ([facility]). Similar resting findings. 02/05/21: [facility]: Summary 1. Mildly enlarged left ventricular chamber. Normal wall thickness. Normal systolic function with no regional wall motion abnormalities with an estimated ejection fraction of 60-65%. 2. Right ventricular chamber dimension is normal. Right ventricular systolic function is normal. 3. Right atrial chamber dimension is enlarged. 4. No hemodynamically significant valvular disease. 5. There is no pulmonary hypertension, estimated right ventricle systolic pressure is 22 mmHg. Cardiac Catheterization: 12/28/21: DIAGNOSTIC FINDINGS + + Coronary Anatomy: Right Dominant Injection Site(s): Coronary Artery, Mammary Artery and Subclavian Artery LMT: _ The LMT has mild luminal irregularities. LAD: _ The LAD has mild diffuse disease. Additional Comment: - the LAD is a large caliber vessel. It gives rise to a small-medium caliber D1 branch and two small caliber D2 and D3 branches. The distal LAD is atretic and tapers before reaching the LV apex. LCX: _ The 1st obtuse marginal circumflex is narrowed 40 % - focal disease. _ The mid circumflex - DUDE RANCH MANAGER and ISR. Additional Comment: - the LCx is a large caliber vessel. It gives rise to a large caliber OM1 branch with a mild 30% proximal lesion and a moderate 40% mid-OM1 lesion. The LCx is then occluded d/t ISR in a mid-LCx stent just after the takeoff of the OM1 branch. The OM2 branch is a medium caliber vessel supplied by a patent ROSAS graft. The SVG-OM3 graft is known to be occluded and filling of this vessel is not visualized. There are R-Agnes collaterals to the AV circumflex artery from the rPL branch. RAMUS: _ The Ramus is Absent. RCA: _ The RCA has mild luminal irregularities. Additional Comment: - the RCA is a large caliber dominant vessel with mild luminal irregularities. It gives rise to a medium-large caliber rPDA and a medium caliber rPL branches. GRAFTS: _ Left Internal Mammary Artery Graft End to Side to the OM-2 Second Obtuse Marginal Branch . Additional Comments - - patent. _ Saphenous Vein Graft End to Side to the OM-1 First Obtuse Marginal Branch . Additional Comments - - known occluded. _ Saphenous Vein Graft End to Side to the OM-3 Third Obtuse Marginal Branch . Additional Comments - - known occluded. Impression: - LAD with mild diffuse disease - LCx with mild 30% lesion in the proximal OM1 with known occluded SVG-OM1; DUDE RANCH MANAGER of the mid LCx stent and patent ROSAS-OM2; SVG-OM3 graft is known to be occluded - RCA with mild luminal irregularities Recommended Treatment: Medical Therapy. 09/13/2006: [facility]-: Summary 45 year-old female with known CAD s/p PCI and CABG (SVG-OM1, ROSAS-OM2, SVG-OM3) presents for angiography to evaluate her complaint of back pain. Today's study demonstrated moderate disease (40%) in the proximal portion of the LAD. The LAD was a short vessel that stopped short of the apex. There was a non-obstructive myocardial bridge in the mid portion of the LAD. The LCx was non-dominant vessel that gave off a large OM1 branch. There was moderate disease in this branch. The OM2 branch was previously stent and was completely occluded within the stent. The AV continuation of the LCx was severely diseased (99%) after the OM2 branch. The distal LCx filled via right to left collaterals. The RCA was a dominant vessel with mild diffuse disease. The catheterization findings were not significantly changed from 04/29/05. Plan is to continue medical therapy. Recommendations : [facility] Holter / Event Recorder : 01/29/22: Patient Name: Oniel Norman : 1960 Ordering Provider: Low Mohr Indication: R00.1 Bradycardia, unspecified Type of Monitor: Extended Monitoring-Zio Patch Enrollment Dates: 01/08/2022-01/21/2022 Patient had a min HR of 39 bpm, max HR of 187 bpm, and avg HR of 61 bpm. Predominant underlying rhythm was Sinus Rhythm. 7 Supraventricular Tachycardia runs occurred, the run with the fastest interval lasting 8 beats with a max rate of 187 bpm, the longest lasting 15 beats with an avg rate of 129 bpm. Isolated SVEs were rare (<1.0%), SVE Couplets were rare (<1.0%), and SVE Triplets were rare (<1.0%). Isolated VEs were rare (<1.0%), VE Couplets were rare (<1.0%), and no VE Triplets were present. Ventricular Bigeminy was present. Inverted QRS complexes possibly due to inverted placement of device. Derian Aguiar MD Stress Test : 09/12/15: CONCLUSIONS: 1. Perfusion study: Abnormal. 2. Functional capacity N/A (pharmacological). 3. There is a small (<10%) fixed perfusion defect in the LCX territory with mild periinfarct ischemia. 4. Left ventricle is normal in size. the left ventricle systolic function is normal. 5. Rest LVEF is 66 %. The Stress LVEF is 69 %. 6. Right ventricle is normal in size The right ventricle systolic function is normal. 7. This is a low risk scan. 09/07/13: CONCLUSIONS: 1. Perfusion study: Normal Study. 2. No evidence of infarct or ischemia. 3. Left ventricle is normal in size. The left ventricle systolic function is normal. 4. Right ventricle is normal in size. 5. The Stress LVEF is 67 %. 6. Change in breast position observed between rest and stress. AC performed with improvement. TILT: === Device: ==== Vasc: 07/18/15; RIGHT SIDE Internal carotid artery: 20-39% stenosis. Vertebral artery: Patent and antegrade flow noted. LEFT SIDE Internal carotid artery: 0-19% stenosis. Vertebral artery: Patent and antegrade flow noted. Technologist: Romario Guerra RVT, [facility] Ordering physician: SELENE WOO Interpreting physician: Joyce Ley MD, RVT, RPVI PAST CARDIAC/VASCULAR EVENTS: CABG PCI ALLERGIES Allergen Reactions Adhesive Rash, Itching Plastic bandaids Iv Dye [Iodine] Anaphylaxis Neosporin [Neomycin* Rash, Itching Penicillins Other: See Comments convulsions MEDICATIONS: vit B complex no.12/niacin,B3, (VITAMIN B COMPLEX NO.12-NIACIN ORAL)^Take by mouth once daily.^Disp: ^Rfl: traZODone (DESYREL) 100 mg tablet^Take 200 mg by mouth daily at bedtime.^Disp: ^Rfl: ibuprofen (MOTRIN) 600 mg tablet^Take 1 tablet by mouth every 6 hours as needed.^Disp: 15 tablet^Rfl: 0 multivitamin with minerals (HAIR,SKIN AND NAILS ORAL)^Take by mouth once daily.^Disp: ^Rfl: bumetanide (BUMEX) 2 mg tablet^Take 2 mg by mouth once daily.^Disp: ^Rfl: lisinopril 2.5 mg tablet^Take 1.25 mg by mouth once daily. Takes one-half tablet^Disp: ^Rfl: lamoTRIgine (LAMICTAL) 200 mg tablet^Take 200 mg by mouth once daily.^Disp: ^Rfl: oxyCODONE-acetaminophen (PERCOCET) 5-325 mg tablet^Take 1 tablet by mouth every 4 hours as needed for Pain.^Disp: ^Rfl: isosorbide mononitrate ER (IMDUR) 30 mg 24 hr tablet^Take 1 tablet by mouth once daily. take one tablet daily^Disp: ^Rfl: 0 atorvastatin 80 mg tablet^Take 80 mg by mouth once daily.^Disp: ^Rfl: pantoprazole 40 mg tablet^Take 40 mg by mouth once daily.^Disp: ^Rfl: Aspirin 81 mg tab^Take 81 mg by mouth once daily.^Disp: ^Rfl: REVIEW OF SYSTEMS: GENERAL: Negative for: Weight loss or gain, Fever or Chills, Weakness and Sleep difficulties. HEENT: Negative for: Headache, Impaired Vision, Glasses, Hearing Impairment, Ringing in Ears, Nosebleeds, Poor dental care, Bleeding Gums, Dentures NECK: Negative for: Swelling, Pain, Stiffness RESPIRATORY: Negative for: Cough, Blood in Sputum, Shortness of breath, Wheezing, Apnea GASTROINTESTINAL: Negative for: Trouble swallowing, Heartburn, Change in bowel habits, Blood in stool, Dark black stools MUSCULOSKELETAL: Negative for: Muscle or joint pain, Stiffness , Joint swelling NEUROLOGIC/PSYCHIATRIC: Negative for: Weakness, Paralysis, Numbness, Tingling, Tremor, Nervousness, Depressed mood, Memory loss SKIN: Negative for: Rashes, Itching HEMATOLOGICAL/LYMPHATIC: Negative for: Easy bruising , Easy bleeding ENDOCRINE: Negative for: Heat or cold intolerance, Excessive sweating, Frequent urination, Frequent thirst PHYSICAL EXAMINATION: BP 113/76 Pulse 57 Ht 5' 6 (1.68m) Wt 175 lb (79.4kg) SpO2 97% BMI 28.26 kg/(m^2). General: Well appearing, in no acute distress. Skin: No clubbing, no cyanosis. Eyes: Extra ocular movements intact Oropharynx: Teeth in good repair. Neck: No jugular venous distention, no carotid bruits, carotids have a normal upstroke, no palpable thyromegaly. Lungs: Clear to auscultation bilaterally, no wheezing or rhonchi. Heart: Regular rhythm, PMI not displaced, S1, S2 normal, no S3, no S4, no heaves, no rub and no murmur. Abdomen: Soft, nontender, bowel sounds normal, no palpable organomegaly, no bruits. Extremities: No peripheral edema . Grade 2/4 distal pulses bilaterally. Neuro: Oriented to person, place and time, alert, cooperative, gait coordinated. CARDIOVASCULAR MEDICINE TESTING: Electrocardiogram: Sinus bradycardia otherwise unremarkable tracing I have personally reviewed the Electrocardiogram, Echocardiogram, Stress Test: Electrocardiogram, and Cardiac Catheterization/Percutaneous Coronary Intervention (PCI). Cholesterol, Total (mg/dL) Date Value 03/17/2018 106 07/18/2015 182 HDL Cholesterol (mg/dL) Date Value 03/17/2018 56 07/18/2015 66 LDL Cholesterol (mg/dL) Date Value 03/17/2018 41 07/18/2015 93 Triglyceride (mg/dL) Date Value 03/17/2018 43 07/18/2015 116 CMP: Glucose 121 12/16/2021 BUN 10 12/16/2021 Creatinine 0.81 12/16/2021 Sodium 139 12/16/2021 Potassium 3.5 12/16/2021 Chloride 101 12/16/2021 CO2 Content, Venous 26 12/16/2021 Protein, Total 6.8 12/16/2021 Albumin 4.7 12/16/2021 Calcium 9.3 12/16/2021 Alkaline Phosphatase 126 12/16/2021 Bilirubin, Total 0.6 12/16/2021 AST 21 12/16/2021 ALT 18 12/16/2021 Hemoglobin (g/dL) Date Value 12/16/2021 14.6 Hematocrit (%) Date Value 12/16/2021 43.5 WBC (k/uL) Date Value 12/16/2021 6.50 Platelet Count (k/uL) Date Value 12/16/2021 192 Hemoglobin A1C (%) Date Value 03/17/2018 5.4 01/14/2015 5.7 09/07/2013 5.5 02/24/2009 5.8 TSH Date Value Ref Range Status 01/19/2017 1.750 0.400 - 5.500 uU/mL Final IMPRESSION: Ms. Norman is a 61 year old female with established coronary artery disease. Recent catheterization confirmed adequate blood flow onto the major coronary distributions. She is. No clinical ischemia has been documented in the last 6 months. No heart failure or malignant arrhythmias. Patient is contemplating sequential orthopedic surgeries. From the cardiac standpoint she is optimized and stable. Patient is not on a beta-cristiana due to baseline bradycardia. Opacification she was tried on low-dose bradycardia and she developed the following bradycardia with lassitude. She is to continue current medication Follow-up with general cardiology in 3 months. 1. Coronary atherosclerosis due to lipid rich plaque - ICD9: 414.3, ICD10: I25.10, I25.83 (primary diagnosis) 2. Hypertension, unspecified type - ICD9: 401.9, ICD10: I10 3. Sinus bradycardia - ICD9: 427.89, ICD10: R00.1 4. Beta-cristiana intolerance - ICD9: 995.27, ICD10: Z78.9 5. S/P CABG x 3 - ICD9: V45.81, ICD10: Z95.1 6. Mixed hyperlipidemia - ICD9: 272.2, ICD10: E78.2 7. S/P angioplasty with stent - ICD9: V45.89, ICD10: Z95.820 During this 20 minute visit with greater than 50% of the time was spent in direct, [id number], contact with the patient for management and counseling. Guevara Espino M.D. [facility] This note was partially generated using [employer] voice recognition system, and there may be some incorrect words, spellings, and punctuation that were not noted in checking the note before saving. documented in this encounter [facility] 07-26-2022 Instructions Liliya Lara MD - 07/26/2022 1:53 PM EDT Problem List Items Addressed This Visit Cardiovascular and Mediastinum Essential hypertension No changes to treatment Sx well controlled Musculoskeletal and Integument Bilateral shoulder bursitis Hx of steroid injections bilaterally Has worsening left shoulder pain 2/2 to mechanical trauma Decreased ROM- unable to lift shoulder > 90 degrees Gabapentin has been ineffective Pt declined physical therapy - has appt w/ orthopedics at the end of the month as well as pain management Other Bipolar disorder, most recent episode depressed (HCC) Cont w/ lamictal Increase lexapro to 10mg daily- states this has been helping She does not feel like hydroxyzine has been helping Relevant Medications escitalopram oxalate (LEXAPRO) 5 MG tablet Left hip pain - Primary Acute on chronic pain Has appt w/ orthopedic at the end of the month antalagic gait, + kiarra test Tramadol ineffective Will prescribe percocet If any referrals were placed at the time of your visit please allow 2 weeks for processing. If you haven't heard from anyone within 2 weeks please contact my office so we can look into the status of your referral. If you were given any labs today please ensure they are completed according to the directions given. Most normal results will be available through [facility] however if abnormal, you will be notified. Please allow 48-72 hours for review, and let you know what steps, if any, are needed next. If you haven't heard from us after that please call to inquire. If labs were ordered to be done PRIOR to your next visit we will discuss the results at the time of your office visit. If any procedures or imaging studies were ordered that must be prior authorized please give us 2 weeks to get them approved. Once approved someone should call you to schedule them or give you a date and time that they were scheduled for. If you haven't heard anything within 2 weeks of the office visit please call the office so we can look into their status. Customer Service/Billing Questions: [phone] [facility] Assistance: [phone] or [phone] Financial Assistance: [phone] or [phone] documented in this encounter [facility] 07-26-2022 Evaluation + Plan note Associated Problem(s): Essential hypertension No changes to treatment Sx well controlled [facility] 07-26-2022 Miscellaneous Notes Associated Problem(s): Essential hypertension No changes to treatment Sx well controlled Associated Problem(s): Bipolar disorder, most recent episode depressed (HCC) Cont w/ lamictal Increase lexapro to 10mg daily- states this has been helping She does not feel like hydroxyzine has been helping Associated Problem(s): Left hip pain Acute on chronic pain Has appt w/ orthopedic at the end of the month antalagic gait, + kiarra test Tramadol ineffective Will prescribe percocet Associated Problem(s): Bilateral shoulder bursitis Hx of steroid injections bilaterally Has worsening left shoulder pain 2/2 to mechanical trauma Decreased ROM- unable to lift shoulder > 90 degrees Gabapentin has been ineffective Pt declined physical therapy - has appt w/ orthopedics at the end of the month as well as pain management documented in this encounter [facility] 07-26-2022 Evaluation + Plan note Associated Problem(s): Bipolar disorder, most recent episode depressed (HCC) Cont w/ lamictal Increase lexapro to 10mg daily- states this has been helping She does not feel like hydroxyzine has been helping [facility] 07-26-2022 Evaluation + Plan note Associated Problem(s): Left hip pain Acute on chronic pain Has appt w/ orthopedic at the end of the month antalagic gait, + kiarra test Tramadol ineffective Will prescribe percocet [facility] 07-21-2022 Evaluation + Plan note Associated Problem(s): Bilateral shoulder bursitis Hx of steroid injections bilaterally Has worsening left shoulder pain 2/2 to mechanical trauma Decreased ROM- unable to lift shoulder > 90 degrees Gabapentin has been ineffective Pt declined physical therapy - has appt w/ orthopedics at the end of the month as well as pain management [facility] 07-21-2022 History of Present illness Narrative Assessment Assessment/Plan: Problem List Bipolar disorder, most recent episode depressed (HCC) Cont w/ lamictal Increase lexapro to 10mg daily- states this has been helping She does not feel like hydroxyzine has been helping Relevant Medications escitalopram oxalate (LEXAPRO) 5 MG tablet Essential hypertension No changes to treatment Sx well controlled Bilateral shoulder bursitis Hx of steroid injections bilaterally Has worsening left shoulder pain 2/2 to mechanical trauma Decreased ROM- unable to lift shoulder > 90 degrees Gabapentin has been ineffective Pt declined physical therapy - has appt w/ orthopedics at the end of the month as well as pain management Left hip pain - Primary Acute on chronic pain Has appt w/ orthopedic at the end of the month antalagic gait, + kiarra test Tramadol ineffective Will prescribe percocet Return in about 6 weeks (around 09/01/2022) for Follow up Chronic Conditions. For any new medications prescribed today, patient was educated about indications for the medication, how to take the medication and potential side effects of the medications. Liliya Lara MD [facility] [address] [facility] [address] [facility] [id number] Dept: [phone] Subjective Chief Complaint Patient presents with Follow-up 3 month f/u HPI Oniel Norman is a 61 y.o. female past medical history of osteoarthritis, CADs/p PCI and CABG (SVG-OM1, ROSAS-OM2, SVG-OM3), bipolar disorder, DJD, hypertension, GERD, anxiety, osteoporosis, migraines presenting for a follow up of her chronic conditions CAD s/p CABG X3-chest pain/pressure resolved. Is on antianginals. Recent echo showed preserved ejection fraction. No intervention advised by cardiology at this time. She is on guideline medical therapy at this time. Infected wound- pt states she was working on her fence over the last few weeks and feel slike she may have scraped her left hightower on this. There is some tenderness to the area an redness. She also has the same wound on her right forearm (when she was skin picking) that she feels has not healed up properly. She denies any additional trauma to this area. She has not been using any additional medications on these wounds- no fever, chills, swelling, numbness. She completed a course of keflex which helped quite a bit but did not heal the wound completely. Bipolar disorder/anxiety- on Lamictal. She states she has decreased her work hours because she was feeling overwhelmed but her work has been very accommodating. Acute anxiety- Currently on lamictal for bipolar disorder. States there has been some improvement with lexapro 10mg. She does not feel like hydroxyzine helps. No Si/HI or thoughts or self harm. Has not been picking her skin. Advised pt to follow up with counseling services Bilateral shoulder osteoarthritis- Has worsening left shoulder pain 2/2 to mechanical trauma . We increased gabapentin to 300mg bid. Xray left shoulder completed showed: Advanced glenohumeral AC joint and dorsal degenerative changes are present. Narrowing of the rotator cuff space may reflect a degree of impingement. Pain management referral placed- pt will schedule appt. Left hip pain - acute on chronic pain. She states 'I know I have to get surgery on this . She states she has an appt w/ orthopedics at the end of the month. Pain is 8/10 and radiates into her groin. She has pain with walking and climbing steps- states if she stands still, there is no pain. No inflammation, erythema or tenderness. No acute trauma per patient. She has been taking tramadol which has been ineffective. All pertinent positives and negatives are documented in ROS Patient's medications, allergies, past medical history, surgical history history, family history, social history were reviewed. Spent more than 35 minutes with patient, coordinating patient care, including reviewing charts and counseling patient. 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) 10/05/2015 Bipolar disorder, most recent episode depressed (HCC) 12/25/2020 Callus of foot interdigital on right foot Chronic prescription opiate use Circulation problem Controlled substance agreement signed Depression Hair loss Heart disease Hyperlipidemia Hypertension Left hip pain 07/26/2022 Migraine 12/25/2020 Myocardial infarct (HCC) PT STATES SHE HAS HAD 10 HEART ATTACKS FROM 1999 TO 2003 Painful orthopaedic hardware (HCC) Left first MPJ Weight loss Past Surgical History: Procedure Laterality Date ANGIOPLASTY X 4 APPENDECTOMY N/A BUNIONECTOMY N/A CABG N/A CORONARY ARTERY BYPASS GRAFT EYE SURGERY HERNIA REPAIR N/A JOINT REPLACEMENT knee replacement Right 20+ years ago OPEN HEART I & D (GENL) 2004 OTHER SURGICAL HISTORY 2004 PER PT QUADRUPLE BYPASS TOTAL HIP ARTHROPLASTY Right 2017 TOTAL KNEE ARTHROPLASTY Left 2019 Family History Problem Relation Age of Onset Heart disease Mother Hypertension Mother Heart disease Father Hypertension Father Bipolar disorder Father Other (BIPOLAR) Father Diabetes Maternal Grandmother Social History Tobacco Use Smoking status: Former Types: Cigarettes Smokeless tobacco: Never Tobacco comments: QUIT IN 1999 Vaping Use Vaping Use: Never used Substance Use Topics Alcohol use: Yes Comment: occasionally Drug use: Never Allergies Allergen Reactions Iodine Anaphylaxis Penicillins Iodine And Iodide Containing Products Unknown Eetxvplf-Hapsidrpt-Eiqylbnvni rash and itching Adhesive Itching and Rash Plastic bandaids Ct: Iodinated Contrast- Oral And Iv Dye Unknown and Rash Neosporin (Uqd-Vak-Dzybi) [Xojxawiy-Kfrcxkixac-Opxfcufew] Rash Ointment only Patient's Medications New Prescriptions SULFAMETHOXAZOLE-TRIMETHOPRIM (BACTRIM DS,SEPTRA DS) 800-160 MG PER TABLET Take 1 (one) tablet by mouth 2 (two) times a day for 7 days . Previous Medications ALPRAZOLAM (XANAX) 0.5 MG TABLET Take 1 (one) tablet (0.5 mg total) by mouth nightly as needed for sleep . ASPIRIN 81 MG CHEWABLE TABLET Chew and Swallow 1 (one) tablet (81 mg total) daily . ATORVASTATIN (LIPITOR) 80 MG TABLET Take 1 (one) tablet (80 mg total) by mouth daily . BUMETANIDE (BUMEX) 0.5 MG TABLET Take 1 (one) tablet (0.5 mg total) by mouth nightly . BUMETANIDE (BUMEX) 1 MG TABLET Take 1 (one) tablet (1 mg total) by mouth daily with breakfast Start: 04/21/22. ISOSORBIDE MONONITRATE (IMDUR) 30 MG 24 HR TABLET Take 1 (one) tablet (30 mg total) by mouth daily . LAMOTRIGINE (LAMICTAL) 200 MG TABLET Take 1 (one) tablet (200 mg total) by mouth daily . LISINOPRIL (PRINIVIL,ZESTRIL) 2.5 MG TABLET Take 0.5 (one-half) tablet (1.25 mg total) by mouth daily . PANTOPRAZOLE (PROTONIX) 40 MG TABLET Take 1 (one) tablet (40 mg total) by mouth daily . TRAZODONE (DESYREL) 100 MG TABLET Take 2 (two) tablets (200 mg total) by mouth nightly . Modified Medications Modified Medication Previous Medication ESCITALOPRAM OXALATE (LEXAPRO) 5 MG TABLET escitalopram oxalate (LEXAPRO) 5 MG tablet Take 2 (two) tablets (10 mg total) by mouth daily . Take 1 (one) tablet (5 mg total) by mouth daily . Discontinued Medications GABAPENTIN (NEURONTIN) 300 MG CAPSULE Take 1 (one) capsule (300 mg total) by mouth 2 (two) times a day . HYDROXYZINE (VISTARIL) 25 MG CAPSULE Take 1 (one) capsule (25 mg total) by mouth 3 (three) times a day as needed for anxiety . TRAMADOL (ULTRAM) 50 MG TABLET Objective Vitals: 07/21/22 1643 BP: 114/73 BP Location: Left arm Patient Position: Sitting BP Cuff Size: Adult Pulse: 60 Resp: 16 Temp: 97.4 F (36.3 C) TempSrc: Infrared SpO2: 97% Weight: 77.1 kg (170 lb) Height: 5' 6 Estimated body mass index is 27.44 kg/m as calculated from the following: Height as of this encounter: 5' 6 . Weight as of this encounter: 77.1 kg (170 lb). Physical Exam Vitals and nursing note reviewed. Constitutional: Appearance: Normal appearance. HENT: Head: Normocephalic and atraumatic. Mouth/Throat: Mouth: Mucous membranes are moist. Eyes: Extraocular Movements: Extraocular movements intact. Cardiovascular: Rate and Rhythm: Regular rhythm. Bradycardia present. Heart sounds: Normal heart sounds. Pulmonary: Effort: Pulmonary effort is normal. Breath sounds: Normal breath sounds. Chest: Chest wall: No tenderness. Abdominal: General: Abdomen is flat. There is no distension. Palpations: Abdomen is soft. Musculoskeletal: Left shoulder: Tenderness present. Decreased strength. Right forearm: No tenderness or bony tenderness. Left forearm: No tenderness or bony tenderness. Right wrist: No swelling or tenderness. Normal range of motion. Normal pulse. Left wrist: No swelling or tenderness. Normal range of motion. Normal pulse. Left hip: Decreased range of motion. Comments: Kiarra test + on left hip Decreased strength 2/2 to pain Skin: General: Skin is warm. Findings: Wound present. Comments: Multiple small wounds on shins approx 0.2-0.5mm, shallow no purulent discharge R forearm 1.5inch shallow wound, purulent discharge noted/ granulation tissue noted, erythema around wound Neurological: General: No focal deficit present. Mental Status: She is alert and oriented to person, place, and time. Mental status is at baseline. Sensory: Sensation is intact. Motor: Motor function is intact. Coordination: Coordination is intact. Gait: Gait is intact. Psychiatric: Attention and Perception: Attention normal. She does not perceive auditory or visual hallucinations. Mood and Affect: Mood is anxious and depressed. Affect is tearful. Speech: Speech normal. Behavior: Behavior is cooperative. Thought Content: Thought content normal. Thought content is not paranoid or delusional. Thought content does not include homicidal or suicidal ideation. Thought content does not include homicidal or suicidal plan. Cognition and Memory: Cognition and memory normal. PHQ9: PHOEBE-7 Tobacco Counseling: Counseling given: Not Answered Tobacco comments: QUIT IN 1999 documented in this encounter [facility] 06-29-2022 Telephone encounter Note RECEIVED FAX FROM PHARMACY. REQUESTING REFILL ON QUEUED MEDICATION(S). LAST OV:06/22/2022 NEXT OV:07/21/2022 [facility] 06-29-2022 Miscellaneous Notes RECEIVED FAX FROM PHARMACY. REQUESTING REFILL ON QUEUED MEDICATION(S). LAST OV:06/22/2022 NEXT OV:07/21/2022 documented in this encounter [facility] 06-25-2022 Instructions Liliya Lara MD - 06/25/2022 11:46 PM EDT Problem List Items Addressed This Visit Cardiovascular and Mediastinum CAD (coronary artery disease), [place] coronary artery Relevant Orders Lipid Panel TSH Musculoskeletal and Integument Bilateral shoulder bursitis Hx of steroid injections bilaterally Has worsening left shoulder pain 2/2 to mechanical trauma -increase gabapentin to 300mg bid -advised pt to obtain xrays -consider pain management referral as pt states tramadol has not been helping for any of her pain in her shoulders/hips/knees Other Anxiety - Primary Currently on lamictal for bipolar disorder Start hydroxyzine nightly and increase as tolerated Start lexapro 5mg Advised pt to follow up with counseling services Relevant Orders Lipid Panel TSH Bipolar disorder, most recent episode depressed (HCC) Acute increase in anxiety symptoms She is compliant w/ lamictal 200mg daily Start lexapro and hydroxyzine -she has previous prescription of xanax which she uses sparingly Pt given hand out w/ counseling centers in [place] and encouraged to reach out Relevant Medications escitalopram oxalate (LEXAPRO) 5 MG tablet If any referrals were placed at the time of your visit please allow 2 weeks for processing. If you haven't heard from anyone within 2 weeks please contact my office so we can look into the status of your referral. If you were given any labs today please ensure they are completed according to the directions given. Most normal results will be available through [facility] however if abnormal, you will be notified. Please allow 48-72 hours for review, and let you know what steps, if any, are needed next. If you haven't heard from us after that please call to inquire. If labs were ordered to be done PRIOR to your next visit we will discuss the results at the time of your office visit. If any procedures or imaging studies were ordered that must be prior authorized please give us 2 weeks to get them approved. Once approved someone should call you to schedule them or give you a date and time that they were scheduled for. If you haven't heard anything within 2 weeks of the office visit please call the office so we can look into their status. Customer Service/Billing Questions: [phone] [facility] Assistance: [phone] or [phone] Financial Assistance: [phone] or [phone] documented in this encounter [facility] 06-25-2022 Evaluation + Plan note Associated Problem(s): Bipolar disorder, most recent episode depressed (HCC) Acute increase in anxiety symptoms She is compliant w/ lamictal 200mg daily Start lexapro and hydroxyzine -she has previous prescription of xanax which she uses sparingly Pt given hand out w/ counseling centers in [place] and encouraged to reach out [facility] 06-25-2022 Miscellaneous Notes Associated Problem(s): Bipolar disorder, most recent episode depressed (HCC) Acute increase in anxiety symptoms She is compliant w/ lamictal 200mg daily Start lexapro and hydroxyzine -she has previous prescription of xanax which she uses sparingly Pt given hand out w/ counseling centers in [place] and encouraged to reach out Associated Problem(s): Bilateral shoulder bursitis Hx of steroid injections bilaterally Has worsening left shoulder pain 2/2 to mechanical trauma -increase gabapentin to 300mg bid -advised pt to obtain xrays -consider pain management referral as pt states tramadol has not been helping for any of her pain in her shoulders/hips/knees Associated Problem(s): Anxiety Currently on lamictal for bipolar disorder Start hydroxyzine nightly and increase as tolerated Start lexapro 5mg Advised pt to follow up with counseling services documented in this encounter [facility] 06-25-2022 Evaluation + Plan note Associated Problem(s): Bilateral shoulder bursitis Hx of steroid injections bilaterally Has worsening left shoulder pain 2/2 to mechanical trauma -increase gabapentin to 300mg bid -advised pt to obtain xrays -consider pain management referral as pt states tramadol has not been helping for any of her pain in her shoulders/hips/knees [facility] 06-25-2022 Evaluation + Plan note Associated Problem(s): Anxiety Currently on lamictal for bipolar disorder Start hydroxyzine nightly and increase as tolerated Start lexapro 5mg Advised pt to follow up with counseling services [facility] 06-22-2022 History of Present illness Narrative Assessment Assessment/Plan: Problem List Anxiety - Primary Currently on lamictal for bipolar disorder Start hydroxyzine nightly and increase as tolerated Start lexapro 5mg Advised pt to follow up with counseling services Relevant Orders Lipid Panel TSH Bipolar disorder, most recent episode depressed (HCC) Acute increase in anxiety symptoms She is compliant w/ lamictal 200mg daily Start lexapro and hydroxyzine -she has previous prescription of xanax which she uses sparingly Pt given hand out w/ counseling centers in [place] and encouraged to reach out Relevant Medications escitalopram oxalate (LEXAPRO) 5 MG tablet CAD (coronary artery disease), [place] coronary artery Relevant Orders Lipid Panel TSH Bilateral shoulder bursitis Hx of steroid injections bilaterally Has worsening left shoulder pain 2/2 to mechanical trauma -increase gabapentin to 300mg bid -advised pt to obtain xrays -consider pain management referral as pt states tramadol has not been helping for any of her pain in her shoulders/hips/knees Return for scheduled appt. For any new medications prescribed today, patient was educated about indications for the medication, how to take the medication and potential side effects of the medications. Liliya Lara MD [facility] [address] [facility] [address] [facility] [id number] Dept: [phone] Subjective Chief Complaint Patient presents with Follow-up 4 week fu, left shoulder pain, wants to discuss shoulder injection HPI Oniel Norman is a 61 y.o. female past medical history of osteoarthritis, CADs/p PCI and CABG (SVG-OM1, ROSAS-OM2, SVG-OM3), bipolar disorder, DJD, hypertension, GERD, anxiety, osteoporosis, migraines presenting for follow up on anxiety Anxiety and depression - she was started on buspar on our last visit for worsening anxiety sx however, she continued to have worsening anxiety. She was then started on hydroxyzine but has not started taking this yet because she read the side effects and did not want to feel drowsy. I advised the pt to start taking 1 at night and increase as tolerated. She continues to have dysphoric mood and decreased concentration. We also discussed augmenting therapy w/ lexapro 5mg and she was amenable. She has been on lamictal for >20 years for her bipolar disorder and she feels like 'one day it just stopped working'. She has not been following up with counseling services or psychiatry. Of note, she has not been causing any self injury (skin picking)- states she has been talking to her daughter more and her work load has decrease. 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 She states she found a patient laying face down and apparently she had passed but no one was aware of this. She states she wants to continue working there because they need her- she has been working daily 7 days a week and hasn't had time off. She has increased agitation, anxiety, dysphoric mood and has been picking at her skin which she has not done in years. She feels overwhelmed. She denies any hallucinations/delusions, no thoughts of SI/HI. She is compliant with her lamotrigine. We discussed counseling and taking time off to recover but she continues to state that her residents need her. We discussed taking time for herself as well, getting rest so that she is able to perform at her job like she hopes to do. She does have a good support system-she speaks with her daughter daily. She has not been following up with counseling but is considering it though she doesn't feel like she has time. We discussed telehealth appointments that were available and patient was amenable to thinking about it. -she also states having financial difficulties- stating she can't take time off of work because she needed help w/ finances. Her fridge broke and she also has to repair her yard and she lives alone- she is overwhelmed and feels like this will require a lot of assistance which she is not able to afford. Left shoulder pain- has been receiving bilateral shoulder injections which alleviate her symptoms but she feels like today her left should pain has gotten worse over the last week. She has been gardening/putting up a fence and lifting soil which exacerbated the pain. She would like to discuss another injection. Unfortunately she is not due at this time. She became tearful because she feels like she is in a significant amount of pain throughout her body including her bilateral hips, knees and shoulders and is not sure how she is going to find time to get treatment. She does not want to go through surgery and she is afraid that she may have to. She has been following up w/ orthopedics at [facility] for hip injections. I advised the pt that pain management may be an option but we need updated xrays. She states she will discuss this w/ orthopedics at [facility] first to see if they are able to do xrays at their facility and then get back to me. At this time she has been taking gabapentin which 'takes the edge off' she states even the tramadol does not help anymore. She has been taking tylenol and ibuprofen which do not alleviate her sx--advised pt that she should not be taking ibuprofen due to her cardiac hx. All pertinent positives and negatives are documented in ROS Patient's medications, allergies, past medical history, surgical history history, family history, social history were reviewed. Spent more than 20 minutes with patient, coordinating patient care, including reviewing charts and counseling patient. 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) 10/05/2015 Bipolar disorder, most recent episode depressed ([facility]) 12/25/2020 Callus of foot interdigital on right foot Chronic prescription opiate use Circulation problem Controlled substance agreement signed Depression Hair loss Heart disease Hyperlipidemia Hypertension Migraine 12/25/2020 Myocardial infarct (HCC) PT STATES SHE HAS HAD 10 HEART ATTACKS FROM 1999 TO 2003 Painful orthopaedic hardware (HCC) Left first MPJ Weight loss Past Surgical History: Procedure Laterality Date ANGIOPLASTY X 4 APPENDECTOMY N/A BUNIONECTOMY N/A CABG N/A CORONARY ARTERY BYPASS GRAFT EYE SURGERY HERNIA REPAIR N/A JOINT REPLACEMENT knee replacement Right 20+ years ago OPEN HEART I & D (GENL) 2003 OTHER SURGICAL HISTORY 2004 PER PT QUADRUPLE BYPASS TOTAL HIP ARTHROPLASTY Right 2017 TOTAL KNEE ARTHROPLASTY Left 2019 Family History Problem Relation Age of Onset Heart disease Mother Hypertension Mother Heart disease Father Hypertension Father Bipolar disorder Father Other (BIPOLAR) Father Diabetes Maternal Grandmother Social History Tobacco Use Smoking status: Former Types: Cigarettes Smokeless tobacco: Never Tobacco comments: QUIT IN 1999 Vaping Use Vaping Use: Never used Substance Use Topics Alcohol use: Yes Comment: occasionally Drug use: Never Allergies Allergen Reactions Iodine Anaphylaxis Penicillins Iodine And Iodide Containing Products Unknown Nkxyonaz-Whglzmovi-Nkbtxdfybf rash and itching Adhesive Itching and Rash Plastic bandaids Ct: Iodinated Contrast- Oral And Iv Dye Unknown and Rash Neosporin (Zjh-Nzb-Nchcf) [Ayzaiwgp-Msvhzedvxq-Ddekcbnrr] Rash Ointment only Patient's Medications New Prescriptions ESCITALOPRAM OXALATE (LEXAPRO) 5 MG TABLET Take 1 (one) tablet (5 mg total) by mouth daily . GABAPENTIN (NEURONTIN) 300 MG CAPSULE Take 1 (one) capsule (300 mg total) by mouth 2 (two) times a day . Previous Medications ALPRAZOLAM (XANAX) 0.5 MG TABLET Take 1 (one) tablet (0.5 mg total) by mouth nightly as needed for sleep . ASPIRIN 81 MG CHEWABLE TABLET Chew and Swallow 1 (one) tablet (81 mg total) daily . ATORVASTATIN (LIPITOR) 80 MG TABLET Take 1 (one) tablet (80 mg total) by mouth daily . BUMETANIDE (BUMEX) 0.5 MG TABLET Take 1 (one) tablet (0.5 mg total) by mouth nightly . BUMETANIDE (BUMEX) 1 MG TABLET Take 1 (one) tablet (1 mg total) by mouth daily with breakfast Start: 04/21/22. HYDROXYZINE (VISTARIL) 25 MG CAPSULE Take 1 (one) capsule (25 mg total) by mouth 3 (three) times a day as needed for itching . ISOSORBIDE MONONITRATE (IMDUR) 30 MG 24 HR TABLET Take 1 (one) tablet (30 mg total) by mouth daily . LAMOTRIGINE (LAMICTAL) 200 MG TABLET Take 1 (one) tablet (200 mg total) by mouth daily . LISINOPRIL (PRINIVIL,ZESTRIL) 2.5 MG TABLET Take 0.5 (one-half) tablet (1.25 mg total) by mouth daily . PANTOPRAZOLE (PROTONIX) 40 MG TABLET Take 1 (one) tablet (40 mg total) by mouth daily . TRAMADOL (ULTRAM) 50 MG TABLET TRAZODONE (DESYREL) 100 MG TABLET Take 2 (two) tablets (200 mg total) by mouth nightly . Modified Medications No medications on file Discontinued Medications BUSPIRONE (BUSPAR) 10 MG TABLET Take 1 (one) tablet (10 mg total) by mouth 3 (three) times a day . GABAPENTIN (NEURONTIN) 300 MG CAPSULE Take 1 (one) capsule (300 mg total) by mouth nightly . Review of Systems Constitutional: Positive for fatigue. Negative for activity change (improved), appetite change, chills, diaphoresis and fever. Eyes: Negative for visual disturbance. Respiratory: Negative for cough, chest tightness, shortness of breath and wheezing. Cardiovascular: Negative for chest pain, palpitations and leg swelling. Gastrointestinal: Negative for abdominal pain. Musculoskeletal: Positive for arthralgias (bilateral shoulder pain, hip pain, chronic) and back pain (chronic). Negative for gait problem and joint swelling. Skin: Negative for rash and wound. Neurological: Negative for dizziness, tremors, syncope, speech difficulty, weakness, numbness and headaches. Psychiatric/Behavioral: Positive for agitation, decreased concentration, dysphoric mood and sleep disturbance. Negative for confusion, hallucinations, self-injury and suicidal ideas. The patient is nervous/anxious. Objective Vitals: Estimated body mass index is 26.63 kg/m as calculated from the following: Height as of 05/25/22: 5' 6 . Weight as of 05/25/22: 74.8 kg (165 lb). Physical Exam Vitals and nursing note reviewed. Constitutional: Appearance: Normal appearance. HENT: Head: Normocephalic and atraumatic. Mouth/Throat: Mouth: Mucous membranes are moist. Eyes: Extraocular Movements: Extraocular movements intact. Cardiovascular: Rate and Rhythm: Normal rate and regular rhythm. Pulses: Normal pulses. Heart sounds: Normal heart sounds. Pulmonary: Effort: Pulmonary effort is normal. Breath sounds: Normal breath sounds. Chest: Chest wall: No tenderness. Abdominal: General: Abdomen is flat. There is no distension. Palpations: Abdomen is soft. Musculoskeletal: Right shoulder: Tenderness present. No swelling. Decreased range of motion. Left shoulder: Tenderness present. No swelling. Decreased range of motion. Right forearm: No tenderness or bony tenderness. Left forearm: No tenderness or bony tenderness. Right wrist: No swelling or tenderness. Normal range of motion. Normal pulse. Left wrist: No swelling or tenderness. Normal range of motion. Normal pulse. Right hip: No tenderness. Normal strength. Left hip: Tenderness present. Normal strength. Skin: General: Skin is warm. Findings: Wound present. No lesion. Comments: Multiple small wounds on shins approx 0.2-0.5mm, shallow no purulent discharge R forearm 1.5inch shallow wound, purulent discharge noted/ granulation tissue noted, erythema around wound Neurological: General: No focal deficit present. Mental Status: She is alert and oriented to person, place, and time. Mental status is at baseline. Sensory: Sensation is intact. Motor: Motor function is intact. Coordination: Coordination is intact. Gait: Gait is intact. Psychiatric: Attention and Perception: Attention and perception normal. She does not perceive auditory or visual hallucinations. Mood and Affect: Mood is anxious and depressed. Affect is tearful. Speech: Speech normal. Behavior: Behavior normal. Behavior is cooperative. Thought Content: Thought content normal. Thought content is not paranoid or delusional. Thought content does not include homicidal or suicidal ideation. Thought content does not include homicidal or suicidal plan. Cognition and Memory: Cognition and memory normal. Judgment: Judgment normal. Comments: Looks better today PHQ9: PHOEBE-7 Tobacco Counseling: Counseling given: Not Answered Tobacco comments: QUIT IN 1999 documented in this encounter [facility] 05-29-2022 Instructions Liliya Lara MD - 05/29/2022 12:58 PM EDT Problem List Items Addressed This Visit Musculoskeletal and Integument Arm skin lesion, right Will prescribe keflex X 5 days Pt does compulsively pick at her skin due to anxiety W/ buspar added, I am hoping this decreases Other Anxiety Acute increase in anxiety symptoms She is compliant w/ lamictal 200mg daily Will start buspar 10mg tid -she has previous prescription of xanax which she uses sparingly Pt given hand out w/ counseling centers in [place] and encouraged to reach out Relevant Orders Ambulatory Ref to [facility] [employer] Financial difficulties - Primary Social work referral placed to help w/ community resources Relevant Orders Ambulatory referral to Social Work If any referrals were placed at the time of your visit please allow 2 weeks for processing. If you haven't heard from anyone within 2 weeks please contact my office so we can look into the status of your referral. If you were given any labs today please ensure they are completed according to the directions given. Most normal results will be available through [facility] however if abnormal, you will be notified. Please allow 48-72 hours for review, and let you know what steps, if any, are needed next. If you haven't heard from us after that please call to inquire. If labs were ordered to be done PRIOR to your next visit we will discuss the results at the time of your office visit. If any procedures or imaging studies were ordered that must be prior authorized please give us 2 weeks to get them approved. Once approved someone should call you to schedule them or give you a date and time that they were scheduled for. If you haven't heard anything within 2 weeks of the office visit please call the office so we can look into their status. Customer Service/Billing Questions: [phone] [facility] Assistance: [phone] or [phone] Financial Assistance: [phone] or [phone] documented in this encounter [facility] 05-29-2022 Evaluation + Plan note Associated Problem(s): Arm skin lesion, right Will prescribe keflex X 5 days Pt does compulsively pick at her skin due to anxiety W/ buspar added, I am hoping this decreases [facility] 05-29-2022 Miscellaneous Notes Associated Problem(s): Arm skin lesion, right Will prescribe keflex X 5 days Pt does compulsively pick at her skin due to anxiety W/ buspar added, I am hoping this decreases Associated Problem(s): Financial difficulties Social work referral placed to help w/ community resources Associated Problem(s): Anxiety Acute increase in anxiety symptoms She is compliant w/ lamictal 200mg daily Will start buspar 10mg tid -she has previous prescription of xanax which she uses sparingly Pt given hand out w/ counseling centers in [place] and encouraged to reach out documented in this encounter [facility] 05-29-2022 Evaluation + Plan note Associated Problem(s): Financial difficulties Social work referral placed to help w/ community resources [facility] 05-29-2022 Evaluation + Plan note Associated Problem(s): Anxiety Acute increase in anxiety symptoms She is compliant w/ lamictal 200mg daily Will start buspar 10mg tid -she has previous prescription of xanax which she uses sparingly Pt given hand out w/ counseling centers in [place] and encouraged to reach out [facility] 05-26-2022 Note Addended by: eTrell LARA on: 05/26/2022 04:48 PM Modules accepted: Orders [facility] 05-26-2022 Note Addended by: Terell LARA on: 05/26/2022 04:48 PM Modules accepted: Orders [facility] 05-26-2022 Miscellaneous Notes Addended by: LILIYA LARA on: 05/26/2022 04:48 PM Modules accepted: Orders documented in this encounter [facility] 05-25-2022 History of Present illness Narrative P SAYDA Holden assisting FLORIDA Quinones. [facility] called Oniel regarding BHIP referral from PCP: Liliya Lara MD. Initial attempt. No answer, left vm with [facility] contact information encouraging a call back to discuss the referral further. Follow up scheduled for approx. 1-2 week(s). documented in this encounter [facility] 05-25-2022 History of Present illness Narrative 4 weeks (around 06/22/2022) for Follow up telehealth. Patient would like to come into the office for appointment. Assessment Assessment/Plan: Problem List Anxiety Acute increase in anxiety symptoms She is compliant w/ lamictal 200mg daily Will start buspar 10mg tid -she has previous prescription of xanax which she uses sparingly Pt given hand out w/ counseling centers in [place] and encouraged to reach out Relevant Orders Ambulatory Ref to [facility] [employer] Financial difficulties - Primary Social work referral placed to help w/ community resources Relevant Orders Ambulatory referral to Social Work Arm skin lesion, right Will prescribe keflex X 5 days Pt does compulsively pick at her skin due to anxiety W/ buspar added, I am hoping this decreases Return in about 4 weeks (around 06/22/2022) for Follow up telehealth. For any new medications prescribed today, patient was educated about indications for the medication, how to take the medication and potential side effects of the medications. Liliya Lara MD [facility] [address] [facility] [address] [facility] [id number] Dept: [phone] Subjective Patient ID: Oniel Norman is a 61 y.o. female. Chief Complaint Patient presents with Anxiety HPI Oniel Norman is a 61 y.o. female past medical history of osteoarthritis, CADs/p PCI and CABG (SVG-OM1, ROSAS-OM2, SVG-OM3), bipolar disorder, DJD, hypertension, GERD, anxiety, osteoporosis, migraines presenting for worsening anxiety symptoms. 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 She states she found a patient laying face down and apparently she had passed but no one was aware of this. She states she wants to continue working there because they need her- she has been working daily 7 days a week and hasn't had time off. She has increased agitation, anxiety, dysphoric mood and has been picking at her skin which she has not done in years. She feels overwhelmed. She denies any hallucinations/delusions, no thoughts of SI/HI. She is compliant with her lamotrigine. We discussed counseling and taking time off to recover but she continues to state that her residents need her. We discussed taking time for herself as well, getting rest so that she is able to perform at her job like she hopes to do. She does have a good support system-she speaks with her daughter daily. She has not been following up with counseling but is considering it though she doesn't feel like she has time. We discussed telehealth appointments that were available and patient was amenable to thinking about it. -she also states having financial difficulties- stating she can't take time off of work because she needed help w/ finances. Her fridge broke and she also has to repair her yard and she lives alone- she is overwhelmed and feels like this will require a lot of assistance which she is not able to afford. We discussed social work referral and pt was amenable She does have a lesion on her left arm which she has been picking at- she has not been using any topical antibiotics for this. She denies any fever, chills, numbness/tingling or weakness. There is some purulent discharge and erythema around it. She is quite tearful in clinic today- she was provided emotional support by myself and NIRMAL Reyes. We discussed that we would work together to help control her anxiety symptoms. Pt was very grateful All pertinent positives and negatives are documented in ROS Patient's medications, allergies, past medical history, surgical history history, family history, social history were reviewed. Spent more than 20 minutes with patient, coordinating patient care, including reviewing charts and counseling patient. 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) 12/25/2020 Callus of foot interdigital on right foot Chronic prescription opiate use Circulation problem Controlled substance agreement signed Depression Hair loss Heart disease Migraine 12/25/2020 Myocardial infarct (HCC) PT STATES SHE HAS HAD 10 HEART ATTACKS FROM 1999 TO 2003 Painful orthopaedic hardware (HCC) Left first MPJ Weight loss Past Surgical History: Procedure Laterality Date ANGIOPLASTY X 4 APPENDECTOMY N/A BUNIONECTOMY N/A CABG N/A HERNIA REPAIR N/A knee replacement Right 20+ years ago OPEN HEART I & D (GENL) 2003 OTHER SURGICAL HISTORY 2003 PER PT QUADRUPLE BYPASS TOTAL HIP ARTHROPLASTY Right 2017 TOTAL KNEE ARTHROPLASTY Left 2019 Family History Problem Relation Age of Onset Heart disease Mother Hypertension Mother Heart disease Father Hypertension Father Bipolar disorder Father Other (BIPOLAR) Father Diabetes Maternal Grandmother Social History Tobacco Use Smoking status: Former Smokeless tobacco: Never Tobacco comments: QUIT IN 1999 Vaping Use Vaping Use: Never used Substance Use Topics Alcohol use: Yes Comment: occasionally Drug use: Never Allergies Allergen Reactions Iodine Anaphylaxis Penicillins Iodine And Iodide Containing Products Unknown Xltsrvih-Evmizcmkr-Ycsjktznim rash and itching Adhesive Itching and Rash Plastic bandaids Ct: Iodinated Contrast- Oral And Iv Dye Unknown and Rash Neosporin (Frf-Roa-Ccbqe) [Bmujirvk-Ojrmxlcekh-Uoroeqnri] Rash Ointment only Patient's Medications New Prescriptions ALPRAZOLAM (XANAX) 0.5 MG TABLET Take 1 (one) tablet (0.5 mg total) by mouth nightly as needed for sleep . BUSPIRONE (BUSPAR) 10 MG TABLET Take 1 (one) tablet (10 mg total) by mouth 3 (three) times a day . CEPHALEXIN (KEFLEX) 500 MG CAPSULE Take 1 (one) capsule (500 mg total) by mouth 2 (two) times a day for 5 days . Previous Medications ASPIRIN 81 MG CHEWABLE TABLET Chew and Swallow 1 (one) tablet (81 mg total) daily . ATORVASTATIN (LIPITOR) 80 MG TABLET Take 1 (one) tablet (80 mg total) by mouth daily . BUMETANIDE (BUMEX) 0.5 MG TABLET Take 1 (one) tablet (0.5 mg total) by mouth nightly . BUMETANIDE (BUMEX) 1 MG TABLET Take 1 (one) tablet (1 mg total) by mouth daily with breakfast Start: 04/21/22. GABAPENTIN (NEURONTIN) 300 MG CAPSULE Take 1 (one) capsule (300 mg total) by mouth nightly . ISOSORBIDE MONONITRATE (IMDUR) 30 MG 24 HR TABLET Take 1 (one) tablet (30 mg total) by mouth daily . LAMOTRIGINE (LAMICTAL) 200 MG TABLET Take 1 (one) tablet (200 mg total) by mouth daily . LISINOPRIL (PRINIVIL,ZESTRIL) 2.5 MG TABLET Take 0.5 (one-half) tablet (1.25 mg total) by mouth daily . PANTOPRAZOLE (PROTONIX) 40 MG TABLET Take 1 (one) tablet (40 mg total) by mouth daily . TRAMADOL (ULTRAM) 50 MG TABLET TRAZODONE (DESYREL) 100 MG TABLET Take 2 (two) tablets (200 mg total) by mouth nightly . Modified Medications No medications on file Discontinued Medications No medications on file Review of Systems Constitutional: Positive for fatigue. Negative for activity change (improved), appetite change, chills, diaphoresis and fever. Eyes: Negative for visual disturbance. Respiratory: Negative for cough, chest tightness, shortness of breath and wheezing. Cardiovascular: Negative for chest pain, palpitations and leg swelling. Gastrointestinal: Negative for abdominal pain. Musculoskeletal: Positive for arthralgias (bilateral shoulder pain, chronic) and back pain (chronic). Negative for gait problem and joint swelling. Skin: Positive for wound (bilateral legs, R arm). Negative for rash. Neurological: Negative for dizziness, tremors, syncope, speech difficulty, weakness, numbness and headaches. Psychiatric/Behavioral: Positive for agitation, decreased concentration, dysphoric mood, self-injury and sleep disturbance. Negative for confusion, hallucinations and suicidal ideas. The patient is nervous/anxious. Objective Vitals: 05/25/22 0649 BP: 129/81 BP Location: Left arm Patient Position: Sitting BP Cuff Size: Adult Pulse: (!) 58 Resp: 16 Temp: 98.2 F (36.8 C) TempSrc: Temporal SpO2: 96% Weight: 74.8 kg (165 lb) Height: 5' 6 Estimated body mass index is 26.63 kg/m as calculated from the following: Height as of this encounter: 5' 6 . Weight as of this encounter: 74.8 kg (165 lb). Physical Exam Vitals and nursing note reviewed. Constitutional: Appearance: Normal appearance. HENT: Head: Normocephalic and atraumatic. Mouth/Throat: Mouth: Mucous membranes are moist. Eyes: Extraocular Movements: Extraocular movements intact. Cardiovascular: Rate and Rhythm: Regular rhythm. Bradycardia present. Heart sounds: Normal heart sounds. Pulmonary: Effort: Pulmonary effort is normal. Breath sounds: Normal breath sounds. Chest: Chest wall: No tenderness. Abdominal: General: Abdomen is flat. There is no distension. Palpations: Abdomen is soft. Musculoskeletal: Left shoulder: Tenderness present. Right forearm: No tenderness or bony tenderness. Left forearm: No tenderness or bony tenderness. Right wrist: No swelling or tenderness. Normal range of motion. Normal pulse. Left wrist: No swelling or tenderness. Normal range of motion. Normal pulse. Skin: General: Skin is warm. Findings: Wound present. Comments: Multiple small wounds on shins approx 0.2-0.5mm, shallow no purulent discharge R forearm 1.5inch shallow wound, purulent discharge noted/ granulation tissue noted, erythema around wound Neurological: General: No focal deficit present. Mental Status: She is alert and oriented to person, place, and time. Mental status is at baseline. Sensory: Sensation is intact. Motor: Motor function is intact. Coordination: Coordination is intact. Gait: Gait is intact. Psychiatric: Attention and Perception: Attention normal. She does not perceive auditory or visual hallucinations. Mood and Affect: Mood is anxious and depressed. Affect is tearful. Speech: Speech normal. Behavior: Behavior is cooperative. Thought Content: Thought content normal. Thought content is not paranoid or delusional. Thought content does not include homicidal or suicidal ideation. Thought content does not include homicidal or suicidal plan. Cognition and Memory: Cognition and memory normal. PHQ9: Over the last 2 weeks, how often have you been bothered by any of the following problems? Little interest or pleasure in doing things: Not at all Feeling down, depressed, or hopeless: Several days PHQ-2 Total Score: 1 Trouble falling or staying asleep, or sleeping too much: Not at all Feeling tired or having little energy: Not at all Poor appetite or overeating: Not at all Feeling bad about yourself - or that you are a failure or have let yourself or your family down: Not at all Trouble concentrating on things, such as reading the newspaper or watching television: Not at all Moving or speaking so slowly that other people could have noticed. Or the opposite - being so fidgety or restless that you have been moving around a lot more than usual: Not at all Thoughts that you would be better off , or of hurting yourself in some way: Not at all PHQ-9 Total Score: 1 If you checked off any problems, how difficult have these problems made it for you to do your work, take care of things at home, or get along with other people?: Not difficult at all PHOEBE-7 Over the last 2 weeks, how often have you been bothered by the following problems? Feeling nervous, anxious or on edge: Over half the days Not being able to stop or control worrying: Nearly every day Worrying too much about different things: Nearly every day Trouble relaxing: Several days Being so restless that it is hard to sit still: Several days Becoming easily annoyed or irritable: Over half the days Feeling afraid as if something awful might happen: Not at all PHOEBE-7 Score: (!) 12 Tobacco Counseling: Counseling given: Not Answered Tobacco comments: QUIT IN 1999 Depression Screening 12/25/2020 05/25/2022 Little interest or pleasure in doing things 0 0 Feeling down, depressed, or hopeless 1 1 PHQ-2 Total Score 1 1 Trouble falling or staying asleep, or sleeping too much 1 0 Feeling tired or having little energy 1 0 Poor appetite or overeating 0 0 Feeling bad about yourself - or that you are a failure or have let yourself or your family down 0 0 Trouble concentrating on things, such as reading the newspaper or watching television 0 0 Moving or speaking so slowly that other people could have noticed. Or the opposite - being so fidgety or restless that you have been moving around a lot more than usual 0 0 Thoughts that you would be better off , or of hurting yourself in some way 0 0 PHQ-9 Total Score 3 1 If you checked off any problems, how difficult have these problems made it for you to do your work, take care of things at home, or get along with other people? Not difficult at all Not difficult at all documented in this encounter [facility] 04-27-2022 History of Present illness Narrative Subjective Patient ID: Oniel Norman is a 61 y.o. female. Chief Complaint Patient presents with Follow-up 5 week f/u- Pt wants to have her ears checked. HPI Oniel Norman is a 61 y.o. female past medical history of osteoarthritis, CADs/p PCI and CABG (SVG-OM1, ROSAS-OM2, SVG-OM3), bipolar disorder, DJD, hypertension, GERD, anxiety, osteoporosis, migraines presenting for a follow up of her chronic conditions CAD s/p CABG X3-chest pain/pressure resolved. Is on antianginals. Recent echo showed preserved ejection fraction. No intervention advised by cardiology at this time. She is on guideline medical therapy at this time. Migraine headaches- symptoms have improved significantly- (diagnosed in early 20s)- was previously on imitrex but this was discontinued due to pt's underlying CAD and she also states it was ineffective. She was prescribed nurtec but was not able to afford this- she has been taking tylenol as needed. HTN: controlled- no symptoms. Bipolar disorder/anxiety- on Lamictal. Symptoms well controlled. She states she has decreased her work hours because she was feeling overwhelmed but her work has been very accommodating. Bilateral shoulder osteoarthritis- Pt received injections three months ago- states increased stiffness over the last few weeks. She states the injections have helped. We discussed getting updated imaging and pt was amenable Kenalog 40mg joint injection Procedure note: Risks and alternatives were explained to the patient who verbalized understanding A chloraprep X3 was used to clean the skin surface bilaterally. 1ml kenalog was mixed with 4ml of lidocaine and injected in R shoulder posteriorly. ml 1 kenalog was mixed with 4ml of lidocaine and injected in L shoulder posteriorly. The patient tolerated the procedure well without difficulty. A bandage was applied and there was no significant blood loss. Appropriate aftercare was discussed. All pertinent positives and negatives are documented in ROS Patient's medications, allergies, past medical history, surgical history history, family history, social history were reviewed. Spent more than 25 minutes with patient, coordinating patient care, including reviewing charts and counseling patient. 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) 12/25/2020 Callus of foot interdigital on right foot Chronic prescription opiate use Circulation problem Controlled substance agreement signed Depression Hair loss Heart disease Migraine 12/25/2020 Myocardial infarct (HCC) PT STATES SHE HAS HAD 10 HEART ATTACKS FROM 1999 TO 2003 Painful orthopaedic hardware (HCC) Left first MPJ Weight loss Past Surgical History: Procedure Laterality Date ANGIOPLASTY X 4 APPENDECTOMY N/A BUNIONECTOMY N/A CABG N/A HERNIA REPAIR N/A knee replacement Right 20+ years ago OPEN HEART I & D (GENL) 2003 OTHER SURGICAL HISTORY 2003 PER PT QUADRUPLE BYPASS TOTAL HIP ARTHROPLASTY Right 2017 TOTAL KNEE ARTHROPLASTY Left 2019 Family History Problem Relation Age of Onset Heart disease Mother Hypertension Mother Heart disease Father Hypertension Father Bipolar disorder Father Other (BIPOLAR) Father Diabetes Maternal Grandmother Social History Tobacco Use Smoking status: Former Pack years: 0.00 Smokeless tobacco: Never Tobacco comments: QUIT IN 1999 Vaping Use Vaping Use: Never used Substance Use Topics Alcohol use: Yes Comment: occasionally Drug use: Never Allergies Allergen Reactions Iodine Anaphylaxis Penicillins Iodine And Iodide Containing Products Unknown Fnbeoadu-Ixsvuluqc-Whlokciqls rash and itching Adhesive Itching and Rash Plastic bandaids Ct: Iodinated Contrast- Oral And Iv Dye Unknown and Rash Neosporin (Aew-Xlc-Ebwvd) [Bobdzkjb-Fwqkaollgb-Qrbykbagn] Rash Ointment only Patient's Medications New Prescriptions No medications on file Previous Medications ASPIRIN 81 MG CHEWABLE TABLET Chew and Swallow 1 (one) tablet (81 mg total) daily . ATORVASTATIN (LIPITOR) 80 MG TABLET Take 1 (one) tablet (80 mg total) by mouth daily . BUMETANIDE (BUMEX) 0.5 MG TABLET Take 1 (one) tablet (0.5 mg total) by mouth nightly . BUMETANIDE (BUMEX) 1 MG TABLET Take 1 (one) tablet (1 mg total) by mouth daily with breakfast Start: 04/21/22. ISOSORBIDE MONONITRATE (IMDUR) 30 MG 24 HR TABLET Take 1 (one) tablet (30 mg total) by mouth daily . LAMOTRIGINE (LAMICTAL) 200 MG TABLET Take 1 (one) tablet (200 mg total) by mouth daily . LISINOPRIL (PRINIVIL,ZESTRIL) 2.5 MG TABLET Take 0.5 (one-half) tablet (1.25 mg total) by mouth daily . PANTOPRAZOLE (PROTONIX) 40 MG TABLET Take 1 (one) tablet (40 mg total) by mouth daily . TRAZODONE (DESYREL) 100 MG TABLET Take 2 (two) tablets (200 mg total) by mouth nightly . Modified Medications No medications on file Discontinued Medications No medications on file Review of Systems Constitutional: Negative for activity change (improved), appetite change, chills, diaphoresis, fatigue and fever. Eyes: Negative for visual disturbance. Respiratory: Negative for cough, chest tightness, shortness of breath and wheezing. Cardiovascular: Negative for chest pain, palpitations and leg swelling. Gastrointestinal: Negative for abdominal pain. Musculoskeletal: Positive for arthralgias (bilateral shoulder pain, chronic) and back pain (chronic). Negative for gait problem and joint swelling. Skin: Negative for rash. Neurological: Negative for dizziness, tremors, syncope, speech difficulty, weakness, numbness and headaches. Psychiatric/Behavioral: Negative for agitation, decreased concentration, dysphoric mood, sleep disturbance and suicidal ideas. The patient is not nervous/anxious. Objective Vitals: 04/20/22 1608 BP: 112/65 BP Location: Right arm Patient Position: Sitting BP Cuff Size: X-large Adult Pulse: (!) 47 Resp: 16 Temp: 97 F (36.1 C) TempSrc: Temporal SpO2: 96% Weight: 77.1 kg (170 lb) Height: 5' 6 Estimated body mass index is 27.44 kg/m as calculated from the following: Height as of this encounter: 5' 6 . Weight as of this encounter: 77.1 kg (170 lb). Physical Exam Vitals and nursing note reviewed. Constitutional: Appearance: Normal appearance. HENT: Head: Normocephalic and atraumatic. Mouth/Throat: Mouth: Mucous membranes are moist. Eyes: Extraocular Movements: Extraocular movements intact. Cardiovascular: Rate and Rhythm: Regular rhythm. Bradycardia present. Heart sounds: Normal heart sounds. Pulmonary: Effort: Pulmonary effort is normal. Breath sounds: Normal breath sounds. Chest: Chest wall: No tenderness. Abdominal: General: Abdomen is flat. There is no distension. Palpations: Abdomen is soft. Musculoskeletal: Right shoulder: Tenderness present. No swelling. Decreased range of motion. Left shoulder: Tenderness present. No swelling. Decreased range of motion. Right wrist: No swelling or tenderness. Normal range of motion. Normal pulse. Left wrist: Tenderness present. No swelling. Normal range of motion. Normal pulse. Comments: + impingement test left shoulder 5/5 strength bilaterally Sensation preserved Skin: General: Skin is warm. Neurological: General: No focal deficit present. Mental Status: She is alert and oriented to person, place, and time. Mental status is at baseline. Sensory: Sensation is intact. Motor: Motor function is intact. Coordination: Coordination is intact. Gait: Gait is intact. Psychiatric: Attention and Perception: Attention and perception normal. Mood and Affect: Mood normal. Speech: Speech normal. Behavior: Behavior normal. Thought Content: Thought content normal. Cognition and Memory: Cognition and memory normal. Judgment: Judgment normal. Comments: Looks better today PHQ9: PHOEBE-7 Tobacco Counseling: Counseling given: Not Answered Tobacco comments: QUIT IN 1999 Assessment/Plan: Problem List Bipolar disorder, most recent episode depressed (HCC) Sx controlled on lamictal CAD (coronary artery disease), [place] coronary artery - Primary Status post bypass graft. Currently on Imdur and Bumex she is also taking aspirin and statin as well as lisinopril Last cardiac cath was in 2005 at which time she was not a candidate for surgery. Patient is following up with cardiology. Relevant Orders Lipid Panel Essential hypertension Well controlled Hypercholesterolemia Has not followed up w/ lipid panel Migraine Well controlled on tylenol- she has not needed any additional medications at this time Osteoporosis Advised to follow up with DEXA scan and vitamin D level She is not taking vit d and calcium supplements Relevant Orders XR Bone Density DEXA Axial Bilateral shoulder bursitis Corticosteroid injections administered today bilateral shoulders Will get updated imaging Pt declined pt/ot Relevant Orders XR Shoulder Right 2+ Views (Standard) XR Shoulder Left 2+ Views (Standard) Hepatic Function Panel XR Bone Density DEXA Axial Return in about 3 months (around 07/21/2022) for Follow up Chronic Conditions. For any new medications prescribed today, patient was educated about indications for the medication, how to take the medication and potential side effects of the medications. Liliya Lara MD [facility] [address] [facility] [address] [facility] [id number] Dept: [phone] documented in this encounter [facility] 04-27-2022 Evaluation + Plan note Associated Problem(s): Bipolar disorder, most recent episode depressed (HCC) Sx controlled on lamictal [facility] 04-27-2022 Instructions Liliya Lara MD - 04/27/2022 9:14 AM EDT Problem List Items Addressed This Visit Cardiovascular and Mediastinum CAD (coronary artery disease), [place] coronary artery - Primary Status post bypass graft. Currently on Imdur and Bumex she is also taking aspirin and statin as well as lisinopril Last cardiac cath was in 2005 at which time she was not a candidate for surgery. Patient is following up with cardiology. Relevant Orders Lipid Panel Essential hypertension Well controlled Migraine Well controlled on tylenol- she has not needed any additional medications at this time Musculoskeletal and Integument Osteoporosis Advised to follow up with DEXA scan and vitamin D level She is not taking vit d and calcium supplements Bilateral shoulder bursitis Corticosteroid injections administered today bilateral shoulders Will get updated imaging Pt declined pt/ot Relevant Orders XR Shoulder Right 2+ Views (Standard) XR Shoulder Left 2+ Views (Standard) Hepatic Function Panel Other Bipolar disorder, most recent episode depressed (HCC) Sx controlled on lamictal Hypercholesterolemia Has not followed up w/ lipid panel If any referrals were placed at the time of your visit please allow 2 weeks for processing. If you haven't heard from anyone within 2 weeks please contact my office so we can look into the status of your referral. If you were given any labs today please ensure they are completed according to the directions given. Most normal results will be available through [facility] however if abnormal, you will be notified. Please allow 48-72 hours for review, and let you know what steps, if any, are needed next. If you haven't heard from us after that please call to inquire. If labs were ordered to be done PRIOR to your next visit we will discuss the results at the time of your office visit. If any procedures or imaging studies were ordered that must be prior authorized please give us 2 weeks to get them approved. Once approved someone should call you to schedule them or give you a date and time that they were scheduled for. If you haven't heard anything within 2 weeks of the office visit please call the office so we can look into their status. Customer Service/Billing Questions: [phone] MyChart Assistance: [phone] or [phone] Financial Assistance: [phone] or [phone] documented in this encounter [facility] 04-27-2022 Miscellaneous Notes Associated Problem(s): Bipolar disorder, most recent episode depressed (HCC) Sx controlled on lamictal Associated Problem(s): Hypercholesterolemia Has not followed up w/ lipid panel Associated Problem(s): Bilateral shoulder bursitis Corticosteroid injections administered today bilateral shoulders Will get updated imaging Pt declined pt/ot Associated Problem(s): Osteoporosis Advised to follow up with DEXA scan and vitamin D level She is not taking vit d and calcium supplements Associated Problem(s): CAD (coronary artery disease), [place] coronary artery Status post bypass graft. Currently on Imdur and Bumex she is also taking aspirin and statin as well as lisinopril Last cardiac cath was in 2005 at which time she was not a candidate for surgery. Patient is following up with cardiology. Associated Problem(s): Essential hypertension Well controlled Associated Problem(s): Migraine Well controlled on tylenol- she has not needed any additional medications at this time documented in this encounter [facility] 04-27-2022 Evaluation + Plan note Associated Problem(s): Hypercholesterolemia Has not followed up w/ lipid panel [facility] 04-27-2022 Evaluation + Plan note Associated Problem(s): Bilateral shoulder bursitis Corticosteroid injections administered today bilateral shoulders Will get updated imaging Pt declined pt/ot [facility] 04-27-2022 Evaluation + Plan note Associated Problem(s): Osteoporosis Advised to follow up with DEXA scan and vitamin D level She is not taking vit d and calcium supplements [facility] 04-27-2022 Evaluation + Plan note Associated Problem(s): CAD (coronary artery disease), [place] coronary artery Status post bypass graft. Currently on Imdur and Bumex she is also taking aspirin and statin as well as lisinopril Last cardiac cath was in 2005 at which time she was not a candidate for surgery. Patient is following up with cardiology. [facility] 04-27-2022 Evaluation + Plan note Associated Problem(s): Essential hypertension Well controlled [facility] 04-27-2022 Evaluation + Plan note Associated Problem(s): Migraine Well controlled on tylenol- she has not needed any additional medications at this time [facility] 02-23-2022 History of Present illness Narrative PT HERE FOR 3RD COVID VACCINE. VACCINE ADMINISTERED INTO LEFT ARM. TOLERATED WELL. PT OBSERVED FOR 10 MINUTES TO MONITOR FOR VACCINE REACTIONS. NO REACTIONS NOTED. PT AMBULATORY TO EXIT. documented in this encounter [facility] 01-19-2022 Instructions Liliya Lara MD - 01/19/2022 4:39 PM EST Problem List Items Addressed This Visit Cardiovascular and Mediastinum CAD (coronary artery disease), [place] coronary artery Relevant Medications bumetanide (BUMEX) 0.5 MG tablet bumetanide (BUMEX) 1 MG tablet (Start on 04/21/2022) Musculoskeletal and Integument Bilateral shoulder bursitis Corticosteroid injections administered today Relevant Medications triamcinolone acetonide (KENALOG-40) injection 40 mg (Completed) (Start on 01/19/2022 5:15 PM) triamcinolone acetonide (KENALOG-40) injection 40 mg (Completed) (Start on 01/19/2022 5:15 PM) Other Edema of lower extremity Continue bumex 1mg Am and we will decrease bumex to 0.5mg PM Encounter for gynecological examination - Primary Pap smear completed Will test for g/c/trichominosis Relevant Orders Thinprep Pap Smear Chlamydia/GC/Trichomonas Amplified RNA If any referrals were placed at the time of your visit please allow 2 weeks for processing. If you haven't heard from anyone within 2 weeks please contact my office so we can look into the status of your referral. If you were given any labs today please ensure they are completed according to the directions given. Most normal results will be available through [facility] however if abnormal, you will be notified. Please allow 48-72 hours for review, and let you know what steps, if any, are needed next. If you haven't heard from us after that please call to inquire. If labs were ordered to be done PRIOR to your next visit we will discuss the results at the time of your office visit. If any procedures or imaging studies were ordered that must be prior authorized please give us 2 weeks to get them approved. Once approved someone should call you to schedule them or give you a date and time that they were scheduled for. If you haven't heard anything within 2 weeks of the office visit please call the office so we can look into their status. Customer Service/Billing Questions: [phone] MyChart Assistance: [phone] or [phone] Financial Assistance: [phone] or [phone] documented in this encounter [facility] 01-19-2022 Evaluation + Plan note Associated Problem(s): Bilateral shoulder bursitis Corticosteroid injections administered today [facility] 01-19-2022 Miscellaneous Notes Associated Problem(s): Bilateral shoulder bursitis Corticosteroid injections administered today Associated Problem(s): Edema of lower extremity Continue bumex 1mg Am and we will decrease bumex to 0.5mg PM Associated Problem(s): Encounter for gynecological examination Pap smear completed Will test for g/c/trichominosis documented in this encounter [facility] 01-19-2022 Evaluation + Plan note Associated Problem(s): Edema of lower extremity Continue bumex 1mg Am and we will decrease bumex to 0.5mg PM [facility] 01-19-2022 Evaluation + Plan note Associated Problem(s): Encounter for gynecological examination Pap smear completed Will test for g/c/trichominosis [facility] 01-19-2022 History of Present illness Narrative Subjective Patient ID: Oniel Norman is a 61 y.o. female. Chief Complaint Patient presents with Gynecologic Exam HPI Oniel Norman is a 61 y.o. female past medical history of osteoarthritis, CADs/p PCI and CABG (SVG-OM1, ROSAS-OM2, SVG-OM3), bipolar disorder, DJD, hypertension, GERD, anxiety, osteoporosis, migraines presenting for gynecologic exam and shoulder steroid injections. Last pap- >40 years ago, no abnormal post menopausal bleeding. She states using 'douching' methods with vinegar. She states occasionally having vaginal discharge and odor. Denies any itching, dysuria, hematuria, urgency/frequency. Procedure- bilateral shoulder corticosteroid injection for bursitis Risks discussed with patient who verbalized. Lidocaine 4ml, 1ml kenalog drawn X2. Bilateral posterior shoulders were prepped in sterile fashion. No complications to procedure. Lower ext edema- stated new job and would like to decrease her bumex dose to 0.5mg as she gets home at 7pm. All pertinent positives and negatives are documented in ROS Patient's medications, allergies, past medical history, surgical history history, family history, social history were reviewed. Spent more than 20 minutes with patient, coordinating patient care, including reviewing charts and counseling patient. Past Medical History: Diagnosis Date Acute sinusitis Anxiety Arthritis 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) 10/05/2015 Back problem Bilateral swelling of feet and ankles Bipolar affect, depressed (HCC) Bunion, right foot 04/29/2021 Callus of foot interdigital on right foot Chronic prescription opiate use Circulation problem Controlled substance agreement signed Depression Excessive thirst Hair loss Headache Heart disease Hyperlipidemia Hypertension [place], old Migraine 12/25/2020 Myocardial infarct (HCC) PT STATES SHE HAS HAD 10 HEART ATTACKS FROM 1999 TO 2003 Painful orthopaedic hardware (HCC) Left first MPJ Pharyngitis Weight loss Past Surgical History: Procedure Laterality Date ANGIOPLASTY X 4 APPENDECTOMY N/A BUNIONECTOMY N/A CABG N/A HERNIA REPAIR N/A knee replacement Right 20+ years ago OPEN HEART I & D (GENL) 2003 OTHER SURGICAL HISTORY 2004 PER PT QUADRUPLE BYPASS TOTAL HIP ARTHROPLASTY Right 2017 TOTAL KNEE ARTHROPLASTY Left 2019 Family History Problem Relation Age of Onset Heart disease Mother Hypertension Mother Heart disease Father Hypertension Father Bipolar disorder Father Other (BIPOLAR) Father Diabetes Maternal Grandmother Social History Tobacco Use Smoking status: Former Smoker Smokeless tobacco: Never Used Tobacco comment: QUIT IN 1999 Vaping Use Vaping Use: Never used Substance Use Topics Alcohol use: Yes Comment: occasionally Drug use: Never Allergies Allergen Reactions Iodine Anaphylaxis Penicillins Iodine And Iodide Containing Products Unknown Yuufvimy-Sxyszjgun-Nispwbixqa rash and itching Adhesive Itching and Rash Plastic bandaids Neosporin (Nfu-Tmx-Wttjg) [Ggsusxro-Jbprdthwcr-Iomlhqyna] Rash Ointment only Patient's Medications New Prescriptions BUMETANIDE (BUMEX) 0.5 MG TABLET Take 1 (one) tablet (0.5 mg total) by mouth nightly . Previous Medications ASPIRIN 81 MG CHEWABLE TABLET Chew and Swallow 1 (one) tablet (81 mg total) daily . ATORVASTATIN (LIPITOR) 80 MG TABLET Take 1 (one) tablet (80 mg total) by mouth daily . GABAPENTIN (NEURONTIN) 300 MG CAPSULE Take 1 (one) capsule (300 mg total) by mouth nightly . ISOSORBIDE MONONITRATE (IMDUR) 30 MG 24 HR TABLET Take 1 (one) tablet (30 mg total) by mouth daily . LAMOTRIGINE (LAMICTAL) 200 MG TABLET Take 1 (one) tablet (200 mg total) by mouth daily . LISINOPRIL (PRINIVIL,ZESTRIL) 2.5 MG TABLET Take 0.5 (one-half) tablet (1.25 mg total) by mouth daily . PANTOPRAZOLE (PROTONIX) 40 MG TABLET Take 1 (one) tablet (40 mg total) by mouth daily . TRAZODONE (DESYREL) 100 MG TABLET Take 2 (two) tablets (200 mg total) by mouth nightly . Modified Medications Modified Medication Previous Medication BUMETANIDE (BUMEX) 1 MG TABLET bumetanide (BUMEX) 1 MG tablet Take 1 (one) tablet (1 mg total) by mouth daily with breakfast Start: 04/21/22. Take 1 (one) tablet (1 mg total) by mouth 2 (two) times a day . Discontinued Medications No medications on file Review of Systems Genitourinary: Positive for vaginal discharge. Negative for decreased urine volume, difficulty urinating, dyspareunia, dysuria, flank pain, frequency, genital sores, hematuria, menstrual problem, pelvic pain, urgency, vaginal bleeding and vaginal pain. Musculoskeletal: Positive for arthralgias (bilateral shoulder pain). Objective Vitals: 01/19/22 1548 BP: 109/71 BP Location: Right arm Patient Position: Sitting BP Cuff Size: X-large Adult Pulse: (!) 57 Resp: 16 Temp: 98.2 F (36.8 C) TempSrc: Temporal SpO2: 97% Weight: 77.6 kg (171 lb) Height: 5' 6 Estimated body mass index is 27.6 kg/m as calculated from the following: Height as of this encounter: 5' 6 . Weight as of this encounter: 77.6 kg (171 lb). Physical Exam Exam conducted with a aviation tactical readiness officer present. Genitourinary: Exam position: Lithotomy position. Vagina: Vaginal discharge present. No erythema, tenderness or lesions. Cervix: Discharge present. Uterus: Normal. Adnexa: Right adnexa normal and left adnexa normal. Rectum: External hemorrhoid present. No tenderness. Musculoskeletal: Right shoulder: Tenderness present. No swelling or deformity. Decreased range of motion. Decreased strength. Left shoulder: Tenderness present. No swelling or deformity. Decreased range of motion. Decreased strength. Comments: Pain w/ movement >90 degrees bilaterally passive PHQ9: PHOEBE-7 Tobacco Counseling: Counseling given: Not Answered Comment: QUIT IN 1999 Assessment/Plan: Problem List CAD (coronary artery disease), [place] coronary artery Relevant Medications bumetanide (BUMEX) 0.5 MG tablet bumetanide (BUMEX) 1 MG tablet (Start on 04/21/2022) Edema of lower extremity Continue bumex 1mg Am and we will decrease bumex to 0.5mg PM Encounter for gynecological examination - Primary Pap smear completed Will test for g/c/trichominosis Relevant Orders Thinprep Pap Smear Chlamydia/GC/Trichomonas Amplified RNA Bilateral shoulder bursitis Corticosteroid injections administered today Relevant Medications triamcinolone acetonide (KENALOG-40) injection 40 mg (Completed) (Start on 01/19/2022 5:15 PM) triamcinolone acetonide (KENALOG-40) injection 40 mg (Completed) (Start on 01/19/2022 5:15 PM) Return in about 3 months (around 04/21/2022) for Follow up Chronic Conditions. For any new medications prescribed today, patient was educated about indications for the medication, how to take the medication and potential side effects of the medications. Liliya Lara MD [facility] [address] [facility] [address] [facility] [address] Dept: [phone] documented in this encounter [facility] 01-16-2022 Evaluation + Plan note Associated Problem(s): Symptomatic bradycardia S/p LHC and ECHO on 12/28/21 and 12/25/21 respectively Continues to have episodes of lightheadedness She was evaluated by cardiology- at this time medical therapy was indicated [facility] 01-16-2022 Miscellaneous Notes Associated Problem(s): Symptomatic bradycardia S/p LHC and ECHO on 12/28/21 and 12/25/21 respectively Continues to have episodes of lightheadedness She was evaluated by cardiology- at this time medical therapy was indicated Associated Problem(s): Migraine nurtec prescribed however due to pending authorizations, she has not received this medication Advised pt that it was approved today and she should have this available Previously has used imitrex-this was discontinued due to underlying heart disease and she also states that this did not control her symptoms Associated Problem(s): 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) Hx of CADs/p PCI and CABG (SVG-OM1, ROSAS-OM2, SVG-OM3) [facility] 12/28[facility]21 showed: SVG-OM1 graft known to be occluded, [employer] of the mid left circumflex stent and patent ROSAS-OM2, SVG-OM3 graft is known to be occluded -ECHO 12/25/21 showed preserved ejection fraction -No intervention indicated. At this time continue medical therapy On antianginal isosorbide nitrate Dr. Woo- cardiology is following Associated Problem(s): Encounter for screening mammogram for breast cancer Has not had mammogram >10 years Discussed preventative measures w/ patient She was amenable for mammogram documented in this encounter [facility] 01-16-2022 Evaluation + Plan note Associated Problem(s): Migraine nurtec prescribed however due to pending authorizations, she has not received this medication Advised pt that it was approved today and she should have this available Previously has used imitrex-this was discontinued due to underlying heart disease and she also states that this did not control her symptoms [facility] 01-16-2022 Evaluation + Plan note Associated Problem(s): 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) Hx of CADs/p PCI and CABG (SVG-OM1, ROSAS-OM2, SVG-OM3) Recent [facility] 12/28/21 showed: SVG-OM1 graft known to be occluded, [employer] of the mid left circumflex stent and patent ROSAS-OM2, SVG-OM3 graft is known to be occluded -ECHO 12/25/21 showed preserved ejection fraction -No intervention indicated. At this time continue medical therapy On antianginal isosorbide nitrate Dr. Woo- cardiology is following [facility] 01-16-2022 Evaluation + Plan note Associated Problem(s): Encounter for screening mammogram for breast cancer Has not had mammogram >10 years Discussed preventative measures w/ patient She was amenable for mammogram [facility] 01-13-2022 History of Present illness Narrative Subjective Patient ID: Oniel Norman is a 61 y.o. female. Chief Complaint Patient presents with Follow-up HPI Oniel Norman is a 61 y.o. female past medical history of osteoarthritis, CADs/p PCI and CABG (SVG-OM1, ROSAS-OM2, SVG-OM3), bipolar disorder, DJD, hypertension, GERD, anxiety, osteoporosis, migraines presenting for a follow up of her chronic conditions Lightheadedness- started early Dec. She was evaluated in the ED and had LHC as well as ECHO completed. Noted to be bradycardic (HR in 40s) but no intervention was advised by cardiology. She states her symptoms have improved since our last visit- she is having lightheadedness and fatigue less frequently. We discussed pt reaching out to [place] [facility] to discuss life alert. CAD s/p CABG X3- continues to have some chest pressure/pain. Is on antianginals. Recent echo showed preserved ejection fraction. No intervention advised by cardiology at this time. She is on guideline medical therapy at this time. Pt was seen on 12/29/21 s/p LHC for left arm swelling/pain and was prescribed prednisone and benadryl. She also had US completed to rule out hematoma which was negative. She states the swelling and erythema has improve but she continues to have some pain on palpation in the area. No numbness, tingling or weakness. Migraine headaches- continues to have migraine headaches (diagnosed in early 20s)- was previously on imitrex but this was discontinued due to pt's underlying CAD and she also states it was ineffective. She states having between 2-3 migraine headaches every week , they increased over the last few weeks. Has sensitivity to light and sound and they last a few hours to each- starting from the back of her neck and radiating to her forehead. She was prescribed nurtec but has not received it due to delayed prior authorization. Advised pt that we received documentation that it was approved and she should reach out to pharmacy to receive medication. Mammogram- discussed preventative screening. Pt has not had mammogram in >10 years- no hx of abnormal mammograms. No breast concerns today. All pertinent positives and negatives are documented in ROS Patient's medications, allergies, past medical history, surgical history history, family history, social history were reviewed. Spent more than 20 minutes with patient, coordinating patient care, including reviewing charts and counseling patient. Past Medical History: Diagnosis Date Acute sinusitis Anxiety Arthritis 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) 10/05/2015 Back problem Bilateral swelling of feet and ankles Bipolar affect, depressed (HCC) Bunion, right foot 04/29/2021 Callus of foot interdigital on right foot Chronic prescription opiate use Circulation problem Controlled substance agreement signed Depression Excessive thirst Hair loss Headache Heart disease Hyperlipidemia Hypertension OK, old Migraine 12/25/2020 Myocardial infarct (HCC) PT STATES SHE HAS HAD 10 HEART ATTACKS FROM 1999 TO 2003 Painful orthopaedic hardware (HCC) Left first MPJ Pharyngitis Weight loss Past Surgical History: Procedure Laterality Date ANGIOPLASTY X 4 APPENDECTOMY N/A BUNIONECTOMY N/A CABG N/A HERNIA REPAIR N/A knee replacement Right 20+ years ago OPEN HEART I & D (GENL) 2003 OTHER SURGICAL HISTORY 2004 PER PT QUADRUPLE BYPASS TOTAL HIP ARTHROPLASTY Right 2017 TOTAL KNEE ARTHROPLASTY Left 2019 Family History Problem Relation Age of Onset Heart disease Mother Hypertension Mother Heart disease Father Hypertension Father Bipolar disorder Father Other (BIPOLAR) Father Diabetes Maternal Grandmother Social History Tobacco Use Smoking status: Former Smoker Smokeless tobacco: Never Used Tobacco comment: QUIT IN 1999 Vaping Use Vaping Use: Never used Substance Use Topics Alcohol use: Yes Comment: occasionally Drug use: Never Allergies Allergen Reactions Iodine Anaphylaxis Penicillins Iodine And Iodide Containing Products Unknown Pfjrhrhu-Hyyizmeow-Lfqexjwkdh rash and itching Adhesive Itching and Rash Plastic bandaids Neosporin (Kno-Fqk-Aggyg) [Bytmbezp-Pjprlpyabi-Hupzccpev] Rash Ointment only Patient's Medications New Prescriptions GABAPENTIN (NEURONTIN) 300 MG CAPSULE Take 1 (one) capsule (300 mg total) by mouth nightly . Previous Medications ASPIRIN 81 MG CHEWABLE TABLET Chew and Swallow 1 (one) tablet (81 mg total) daily . ATORVASTATIN (LIPITOR) 80 MG TABLET Take 1 (one) tablet (80 mg total) by mouth daily . BUMETANIDE (BUMEX) 1 MG TABLET Take 1 (one) tablet (1 mg total) by mouth 2 (two) times a day . ISOSORBIDE MONONITRATE (IMDUR) 30 MG 24 HR TABLET Take 1 (one) tablet (30 mg total) by mouth daily . LAMOTRIGINE (LAMICTAL) 200 MG TABLET Take 1 (one) tablet (200 mg total) by mouth daily . LISINOPRIL (PRINIVIL,ZESTRIL) 2.5 MG TABLET Take 0.5 (one-half) tablet (1.25 mg total) by mouth daily . PANTOPRAZOLE (PROTONIX) 40 MG TABLET Take 1 (one) tablet (40 mg total) by mouth daily . TRAZODONE (DESYREL) 100 MG TABLET Take 2 (two) tablets (200 mg total) by mouth nightly . Modified Medications No medications on file Discontinued Medications MECLIZINE (ANTIVERT) 25 MG TABLET Take 0.5 (one-half) tablet (12.5 mg total) by mouth 3 (three) times a day as needed for nausea . RIMEGEPANT 75 MG ODT Dissolve 1 (one) tablet (75 mg total) on top of tongue as needed Do not take more than 1 dose in 24 hours . UBROGEPANT (UBRELVY) 50 MG TAB Take 1 (one) tablet (50 mg total) by mouth as needed May repeat dose after 2 hours Do not exceed 200mg/24h . Review of Systems Constitutional: Positive for activity change (improved). Negative for appetite change, chills, diaphoresis, fatigue and fever. Eyes: Negative for visual disturbance. Respiratory: Negative for cough, chest tightness, shortness of breath and wheezing. Cardiovascular: Positive for chest pain (pressure). Negative for palpitations and leg swelling. Gastrointestinal: Negative for abdominal pain. Musculoskeletal: Positive for arthralgias (bilateral shoulder pain, chronic) and back pain (chronic). Negative for gait problem and joint swelling. Left wrist pain Neurological: Positive for dizziness (improved but not resolved) and headaches. Negative for tremors, syncope, speech difficulty, weakness and numbness. Psychiatric/Behavioral: The patient is nervous/anxious. Objective Vitals: 01/13/22 0948 BP: 112/75 BP Location: Right arm Patient Position: Sitting BP Cuff Size: X-large Adult Pulse: (!) 56 Resp: 16 Temp: 97.6 F (36.4 C) TempSrc: Temporal SpO2: 97% Weight: 78.5 kg (173 lb) Height: 5' 6 Estimated body mass index is 27.92 kg/m as calculated from the following: Height as of this encounter: 5' 6 . Weight as of this encounter: 78.5 kg (173 lb). Physical Exam Vitals and nursing note reviewed. Constitutional: Appearance: Normal appearance. HENT: Head: Normocephalic and atraumatic. Mouth/Throat: Mouth: Mucous membranes are moist. Eyes: Extraocular Movements: Extraocular movements intact. Cardiovascular: Rate and Rhythm: Regular rhythm. Bradycardia present. Heart sounds: Normal heart sounds. Pulmonary: Effort: Pulmonary effort is normal. Breath sounds: Normal breath sounds. Chest: Chest wall: No tenderness. Abdominal: General: Abdomen is flat. There is no distension. Palpations: Abdomen is soft. Musculoskeletal: Right shoulder: Tenderness present. No swelling. Decreased range of motion. Left shoulder: Tenderness present. No swelling. Decreased range of motion. Right wrist: No swelling or tenderness. Normal range of motion. Normal pulse. Left wrist: Tenderness present. No swelling. Normal range of motion. Normal pulse. Skin: General: Skin is warm. Neurological: General: No focal deficit present. Mental Status: She is alert and oriented to person, place, and time. Mental status is at baseline. Sensory: Sensation is intact. Motor: Motor function is intact. Coordination: Coordination is intact. Gait: Gait is intact. Psychiatric: Attention and Perception: Attention and perception normal. Mood and Affect: Mood normal. Speech: Speech normal. Behavior: Behavior normal. Thought Content: Thought content normal. Cognition and Memory: Cognition and memory normal. Judgment: Judgment normal. Comments: Looks better today PHQ9: PHOEBE-7 Tobacco Counseling: Counseling given: Not Answered Comment: QUIT IN 1999 Assessment/Plan: Problem List Items Addressed This Visit Cardiovascular and Mediastinum 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) Hx of CADs/p PCI and CABG (SVG-OM1, ROSAS-OM2, SVG-OM3) Recent LHC 12/28/21 showed: SVG-OM1 graft known to be occluded, DUDE RANCH MANAGER of the mid left circumflex stent and patent ROSAS-OM2, SVG-OM3 graft is known to be occluded -ECHO 12/25/21 showed preserved ejection fraction -No intervention indicated. At this time continue medical therapy On antianginal isosorbide nitrate Dr. Woo- cardiology is following Migraine nurtec prescribed however due to pending authorizations, she has not received this medication Advised pt that it was approved today and she should have this available Previously has used imitrex-this was discontinued due to underlying heart disease and she also states that this did not control her symptoms Other Symptomatic bradycardia S/p LHC and ECHO on 12/28/21 and 12/25/21 respectively Continues to have episodes of lightheadedness She was evaluated by cardiology- at this time medical therapy was indicated Encounter for screening mammogram for breast cancer - Primary Has not had mammogram >10 years Discussed preventative measures w/ patient She was amenable for mammogram Relevant Orders Mammography Screening Emir Bilateral Return in about 5 days (around 01/18/2022) for pap smear and shoulder injections. For any new medications prescribed today, patient was educated about indications for the medication, how to take the medication and potential side effects of the medications. Liliya Lara MD [facility] [address] [place] [id number] Dept: [phone] documented in this encounter [facility] 12-30-2021 History of Present illness Narrative APPEAL PAPERWORK RECEIVED. THIS NURSE DID GO AHEAD AND FILL OUT AND FAX BACK TO NUMBER ON DOCUMENTATION ([phone]). DOCUMENTATION SCANNED INTO CHART. SPOKE WITH DR. LARA. DR. LARA REPORTS THAT SHE COMPLETED APPEAL AND THE LAST OFFICE NOTE NEEDS FAXED. LAST OFFICE NOTE (12/15/21) FAXED TO [employer] [facility] APPEALS DEPT AT NUMBER PROVIDED BY PROVIDER ([phone]). SPOKE WITH DR. LARA. DR. LARA REPORTS THAT SHE COMPLETED APPEAL AND THE LAST OFFICE NOTE NEEDS FAXED. LAST OFFICE NOTE (12/15/21) FAXED TO [facility] [facility] DEPT AT NUMBER PROVIDED BY PROVIDER ([phone]). SPOKE WITH DR. LARA. DR. LARA REPORTS THAT SHE COMPLETED APPEAL AND THE LAST OFFICE NOTE NEEDS FAXED. LAST OFFICE NOTE (12/15/21) FAXED TO [facility] DEPT AT NUMBER PROVIDED BY PROVIDER ([phone]). NO PAPEWRORK FOR APPEAL RECEIVED. PA ATTEMPTED AGAIN THROUGH [employer] Fax number for appeal is [phone] DOCUMENTATION RECEIVED. PA RE-ATTEMPT CANCELLED THROUGH [employer]. THIS NURSE CALLED PHONE NUMBER LISTED ON CANCELLATION NOTIFICATION. I HAVE CALLED BOTH NUMBERS PROVIDED BY EACH OTHER. NOBODY CAN GIVE ME A RESPONSE TO THIS PA APPEAL. PHONE CALL TIME >30 MINUTES. PLEASE ADVISE. PA RESUBMITTED THROUGH [employer]. UBRELVY DENIED COVERAGE. REQUESTING ALTERNATIVE OF NARATRIPTAN OR RIZATRIPTAN. PA INITIATED FOR UBRELVY THROUGH [employer]. documented in this encounter [facility] 12-30-2021 History of Present illness Narrative SPOKE WITH DR. LARA. DR. LARA REPORTS THAT SHE COMPLETED APPEAL AND THE LAST OFFICE NOTE NEEDS FAXED. LAST OFFICE NOTE (12/15/21) FAXED TO [facility] DEPT AT NUMBER PROVIDED BY PROVIDER ([phone]). SPOKE WITH DR. LARA. DR. LARA REPORTS THAT SHE COMPLETED APPEAL AND THE LAST OFFICE NOTE NEEDS FAXED. LAST OFFICE NOTE (12/15/21) FAXED TO [facility] DEPT AT NUMBER PROVIDED BY PROVIDER ([phone]). SPOKE WITH DR. LARA. DR. LARA REPORTS THAT SHE COMPLETED APPEAL AND THE LAST OFFICE NOTE NEEDS FAXED. LAST OFFICE NOTE (12/15/21) FAXED TO [facility] DEPT AT NUMBER PROVIDED BY PROVIDER ([phone]). NO PAPEWRORK FOR APPEAL RECEIVED. PA ATTEMPTED AGAIN THROUGH [employer] Fax number for appeal is [phone] DOCUMENTATION RECEIVED. PA RE-ATTEMPT CANCELLED THROUGH [employer]. THIS NURSE CALLED PHONE NUMBER LISTED ON CANCELLATION NOTIFICATION. I HAVE CALLED BOTH NUMBERS PROVIDED BY EACH OTHER. NOBODY CAN GIVE ME A RESPONSE TO THIS PA APPEAL. PHONE CALL TIME >30 MINUTES. PLEASE ADVISE. PA RESUBMITTED THROUGH [employer]. UBRELVY DENIED COVERAGE. REQUESTING ALTERNATIVE OF NARATRIPTAN OR RIZATRIPTAN. PA INITIATED FOR UBRELVY THROUGH [facility] [facility]. documented in this encounter [facility] 12-30-2021 History of Present illness Narrative SPOKE WITH DR. LARA. DR. LARA REPORTS THAT SHE COMPLETED APPEAL AND THE LAST OFFICE NOTE NEEDS FAXED. LAST OFFICE NOTE (12/15/21) FAXED TO [facility] [facility] APPEALS DEPT AT NUMBER PROVIDED BY PROVIDER ([phone]). NO PAPEWRORK FOR APPEAL RECEIVED. PA ATTEMPTED AGAIN THROUGH [employer] Fax number for appeal is [phone] DOCUMENTATION RECEIVED. PA RE-ATTEMPT CANCELLED THROUGH [employer]. THIS NURSE CALLED PHONE NUMBER LISTED ON CANCELLATION NOTIFICATION. I HAVE CALLED BOTH NUMBERS PROVIDED BY EACH OTHER. NOBODY CAN GIVE ME A RESPONSE TO THIS PA APPEAL. PHONE CALL TIME >30 MINUTES. PLEASE ADVISE. PA RESUBMITTED THROUGH [employer]. UBRELVY DENIED COVERAGE. REQUESTING ALTERNATIVE OF NARATRIPTAN OR RIZATRIPTAN. PA INITIATED FOR UBRELVY THROUGH [employer]. 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 Pt expressed understanding. Relevant Medications predniSONE (DELTASONE) 20 MG tablet If any referrals were placed at the time of your visit please allow 2 weeks for processing. If you haven't heard from anyone within 2 weeks please contact my office so we can look into the status of your referral. If you were given any labs today please ensure they are completed according to the directions given. Most normal results will be available through [facility] however if abnormal, you will be notified. Please allow 48-72 hours for review, and let you know what steps, if any, are needed next. If you haven't heard from us after that please call to inquire. If labs were ordered to be done PRIOR to your next visit we will discuss the results at the time of your office visit. If any procedures or imaging studies were ordered that must be prior authorized please give us 2 weeks to get them approved. Once approved someone should call you to schedule them or give you a date and time that they were scheduled for. If you haven't heard anything within 2 weeks of the office visit please call the office so we can look into their status. 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 Pt expressed understanding. documented in this encounter [facility] 12-29-2021 History of Present illness Narrative Subjective Patient ID: Oniel Norman is a 61 y.o. female. Chief Complaint Patient presents with Rash On left wrist had heart cath yesterday HPI Oniel Norman is a 61 y.o. female past medical history of osteoarthritis, CADs/p PCI and CABG (SVG-OM1, ROSAS-OM2, SVG-OM3), bipolar disorder, DJD, hypertension, GERD, anxiety, osteoporosis, migraines for left wrist rash.. Patient's daughter Joyce is also present This is a new complaint. She had left heart cath completed yesterday- she is allergic to dye and completed pretreatment protocol w/ prednisone. The problem has has worsened slightly. Associated symptoms include: itching, diffuse left wrist swelling, erythema around bandage, pain with wrist movement.Pertinent negatives include: no fever, chills. The pain is poorly described but is constant and she states the itching can worsen the pain. They have tried benadryl . The treatment provided intermittent relief. All pertinent positives and negatives are documented in ROS Patient's medications, allergies, past medical history, surgical history history, family history, social history were reviewed. Spent more than 10 minutes with patient, coordinating patient care, including reviewing charts and counseling patient. Past Medical History: Diagnosis Date Acute sinusitis Anxiety Arthritis Back problem Bilateral swelling of feet and ankles Bipolar affect, depressed (HCC) Bunion, right foot 04/29/2021 Callus of foot interdigital on right foot Chronic prescription opiate use Circulation problem Controlled substance agreement signed Coronary heart disease Depression Excessive thirst Hair loss Headache Heart disease Hyperlipidemia Hypertension OK, old Myocardial infarct (HCC) PT STATES SHE HAS HAD 10 HEART ATTACKS FROM 1999 TO 2003 Painful orthopaedic hardware (HCC) Left first MPJ Pharyngitis Weight loss Past Surgical History: Procedure Laterality Date ANGIOPLASTY X 4 APPENDECTOMY N/A BUNIONECTOMY N/A CABG N/A HERNIA REPAIR N/A knee replacement Right 20+ years ago OPEN HEART I & D (GENL) 2003 OTHER SURGICAL HISTORY 2003 PER PT QUADRUPLE BYPASS TOTAL HIP ARTHROPLASTY Right 2017 TOTAL KNEE ARTHROPLASTY Left 2019 Family History Problem Relation Age of Onset Heart disease Mother Hypertension Mother Heart disease Father Hypertension Father Bipolar disorder Father Other (BIPOLAR) Father Diabetes Maternal Grandmother Social History Tobacco Use Smoking status: Former Smoker Smokeless tobacco: Never Used Tobacco comment: QUIT IN 1999 Vaping Use Vaping Use: Never used Substance Use Topics Alcohol use: Yes Comment: occasionally Drug use: Never Allergies Allergen Reactions Iodine Anaphylaxis Penicillins Iodine And Iodide Containing Products Unknown Bbejbhsd-Fxntklbju-Pqrkasnzii rash and itching Adhesive Itching and Rash Plastic bandaids Neosporin (Naj-Tqe-Kimqh) [Uswdbodx-Zbvfwwehvl-Jarpdobzy] Rash Ointment only Patient's Medications New Prescriptions PREDNISONE (DELTASONE) 20 MG TABLET Take 1 (one) tablet (20 mg total) by mouth daily for 5 days . Previous Medications ASPIRIN 81 MG CHEWABLE TABLET Chew and Swallow 1 (one) tablet (81 mg total) daily . ATORVASTATIN (LIPITOR) 80 MG TABLET Take 1 (one) tablet (80 mg total) by mouth daily . BUMETANIDE (BUMEX) 1 MG TABLET Take 1 (one) tablet (1 mg total) by mouth 2 (two) times a day . ISOSORBIDE MONONITRATE (IMDUR) 30 MG 24 HR TABLET Take 1 (one) tablet (30 mg total) by mouth daily . LAMOTRIGINE (LAMICTAL) 200 MG TABLET Take 1 (one) tablet (200 mg total) by mouth daily . LISINOPRIL (PRINIVIL,ZESTRIL) 2.5 MG TABLET Take 0.5 (one-half) tablet (1.25 mg total) by mouth daily . MECLIZINE (ANTIVERT) 25 MG TABLET Take 0.5 (one-half) tablet (12.5 mg total) by mouth 3 (three) times a day as needed for nausea . PANTOPRAZOLE (PROTONIX) 40 MG TABLET Take 1 (one) tablet (40 mg total) by mouth daily . RIMEGEPANT 75 MG ODT Dissolve 1 (one) tablet (75 mg total) on top of tongue as needed Do not take more than 1 dose in 24 hours . TRAZODONE (DESYREL) 100 MG TABLET Take 2 (two) tablets (200 mg total) by mouth nightly . UBROGEPANT (UBRELVY) 50 MG TAB Take 1 (one) tablet (50 mg total) by mouth as needed May repeat dose after 2 hours Do not exceed 200mg/24h . Modified Medications No medications on file Discontinued Medications No medications on file Review of Systems Constitutional: Negative for chills, fatigue and fever. Eyes: Negative for photophobia and visual disturbance. Respiratory: Negative for cough and shortness of breath. Musculoskeletal: Negative for joint swelling. Left wrist pain Skin: Positive for rash. Negative for wound. Erythema, some swelling noted in wrist Hematological: Bruises/bleeds easily (left wrist/cath side). Objective Vitals: 12/29/21 1551 BP: 107/69 BP Location: Right arm Patient Position: Sitting BP Cuff Size: Adult Pulse: (!) 50 Resp: 16 Temp: 98.1 F (36.7 C) TempSrc: Temporal SpO2: 98% Weight: 77.1 kg (170 lb) Height: 5' 6 Estimated body mass index is 27.44 kg/m as calculated from the following: Height as of this encounter: 5' 6 . Weight as of this encounter: 77.1 kg (170 lb). Physical Exam Vitals and nursing note reviewed. Constitutional: Appearance: Normal appearance. HENT: Head: Normocephalic and atraumatic. Mouth/Throat: Mouth: Mucous membranes are moist. Eyes: Extraocular Movements: Extraocular movements intact. Conjunctiva/sclera: Conjunctivae normal. Pupils: Pupils are equal, round, and reactive to light. Cardiovascular: Rate and Rhythm: Regular rhythm. Bradycardia present. Heart sounds: Normal heart sounds. Pulmonary: Effort: Pulmonary effort is normal. Breath sounds: Normal breath sounds. Abdominal: General: Abdomen is flat. There is no distension. Palpations: Abdomen is soft. Musculoskeletal: Left forearm: Swelling (up to mid forearm) present. Left wrist: Swelling present. Decreased range of motion. Normal pulse. Skin: Findings: Bruising (left wrist at cath site), erythema (left wrist) and rash present. No lesion or wound. Rash is macular. Rash is not scaling. Neurological: General: No focal deficit present. Mental Status: She is alert and oriented to person, place, and time. Mental status is at baseline. Psychiatric: Attention and Perception: Attention and perception normal. Mood and Affect: Mood normal. Speech: Speech normal. Behavior: Behavior normal. Thought Content: Thought content normal. Cognition and Memory: Cognition and memory normal. Judgment: Judgment normal. 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 Pt expressed understanding. Relevant Medications predniSONE (DELTASONE) 20 MG tablet Return for follow up scheduled in January. For any new medications prescribed today, patient was educated about indications for the medication, how to take the medication and potential side effects of the medications. Liliya Lara MD [facility] [address] [facility] [address] [facility] [id number] Dept: [phone] documented in this encounter [facility] 12-29-2021 History of Present illness Narrative NO PAPEWRORK FOR APPEAL RECEIVED. PA ATTEMPTED AGAIN THROUGH [employer] Fax number for appeal is [phone] DOCUMENTATION RECEIVED. PA RE-ATTEMPT CANCELLED THROUGH [employer]. THIS NURSE CALLED PHONE NUMBER LISTED ON CANCELLATION NOTIFICATION. I HAVE CALLED BOTH NUMBERS PROVIDED BY EACH OTHER. NOBODY CAN GIVE ME A RESPONSE TO THIS PA APPEAL. PHONE CALL TIME >30 MINUTES. PLEASE ADVISE. PA RESUBMITTED THROUGH [employer]. [employer]BRELVY DENIED COVERAGE. REQUESTING ALTERNATIVE OF NARATRIPTAN OR RIZATRIPTAN. PA INITIATED FOR UBRELVY THROUGH [facility] [facility]. documented in this encounter [facility] 12-28-2021 History of Present illness Narrative Fax number for appeal is [phone] DOCUMENTATION RECEIVED. PA RE-ATTEMPT CANCELLED THROUGH [facility] [facility]. THIS NURSE CALLED PHONE NUMBER LISTED ON CANCELLATION NOTIFICATION. I HAVE CALLED BOTH NUMBERS PROVIDED BY EACH OTHER. NOBODY CAN GIVE ME A RESPONSE TO THIS PA APPEAL. PHONE CALL TIME >30 MINUTES. PLEASE ADVISE. PA RESUBMITTED THROUGH [facility] [facility]. UBRELVY DENIED COVERAGE. REQUESTING ALTERNATIVE OF NARATRIPTAN OR RIZATRIPTAN. PA INITIATED FOR UBRELVY THROUGH [employer] [facility]. documented in this encounter [facility] 12-24-2021 History of Present illness Narrative DOCUMENTATION RECEIVED. PA RE-ATTEMPT CANCELLED THROUGH [facility]. THIS NURSE CALLED PHONE NUMBER LISTED ON CANCELLATION NOTIFICATION. I HAVE CALLED BOTH NUMBERS PROVIDED BY EACH OTHER. NOBODY CAN GIVE ME A RESPONSE TO THIS PA APPEAL. PHONE CALL TIME >30 MINUTES. PLEASE ADVISE. PA RESUBMITTED THROUGH [facility] [facility]. UBRELVY DENIED COVERAGE. REQUESTING ALTERNATIVE OF NARATRIPTAN OR RIZATRIPTAN. PA INITIATED FOR UBRELVY THROUGH C[employer] [facility]. documented in this encounter [facility] 12-22-2021 History of Present illness Narrative UBRELVY DENIED COVERAGE. REQUESTING ALTERNATIVE OF NARATRIPTAN OR RIZATRIPTAN. PA INITIATED FOR UBRELVY THROUGH [facility] [facility] [employer]. documented in this encounter [facility] 12-17-2021 Instructions Liliya Lara MD - 12/17/2021 6:13 PM EST Problem List Items Addressed This Visit Cardiovascular and Mediastinum Migraine nurtec prescribed -pt amenable to using medication Relevant Medications rimegepant 75 mg ODT oxyCODONE-acetaminophen (PERCOCET) 5-325 mg per tablet Other Acute midline low back pain without sciatica - Primary Short course of percocets placed for acute on chronic back pain. Patient was advised of risks and benefits of controlled substance and verbalized understanding. OARRS performed . No suspicious behavior, concerning or suspicious history given at this visit. Pt will not receive any refills of this medication Relevant Medications oxyCODONE-acetaminophen (PERCOCET) 5-325 mg per tablet Vertigo Improved significantly -epleys maneuver completed in ED which help w/ pts sx -will discontinue vestibular therapy and meclizine prescribed yesterday Symptomatic bradycardia Pt needs to follow up with cardiology -evaluation for possible pacemaker If any referrals were placed at the time of your visit please allow 2 weeks for processing. If you haven't heard from anyone within 2 weeks please contact my office so we can look into the status of your referral. If you were given any labs today please ensure they are completed according to the directions given. Most normal results will be available through [facility] however if abnormal, you will be notified. Please allow 48-72 hours for review, and let you know what steps, if any, are needed next. If you haven't heard from us after that please call to inquire. If labs were ordered to be done PRIOR to your next visit we will discuss the results at the time of your office visit. If any procedures or imaging studies were ordered that must be prior authorized please give us 2 weeks to get them approved. Once approved someone should call you to schedule them or give you a date and time that they were scheduled for. If you haven't heard anything within 2 weeks of the office visit please call the office so we can look into their status. Customer Service/Billing Questions: [phone] [facility] Assistance: [phone] or [phone] Financial Assistance: [phone] or [phone] documented in this encounter [facility] 12-17-2021 Miscellaneous Notes Associated Problem(s): Vertigo Improved significantly -epleys maneuver completed in ED which help w/ pts sx -will discontinue vestibular therapy and meclizine prescribed yesterday Associated Problem(s): Symptomatic bradycardia Pt needs to follow up with cardiology -evaluation for possible pacemaker Associated Problem(s): Migraine nurtec prescribed -pt amenable to using medication Associated Problem(s): Acute midline low back pain without sciatica Short course of percocets placed for acute on chronic back pain. Patient was advised of risks and benefits of controlled substance and verbalized understanding. OARRS performed . No suspicious behavior, concerning or suspicious history given at this visit. Pt will not receive any refills of this medication documented in this encounter [facility] 12-17-2021 Miscellaneous Notes Associated Problem(s): Vertigo Improved significantly -epleys maneuver completed in ED which help w/ pts sx -will discontinue vestibular therapy and meclizine prescribed yesterday Associated Problem(s): Symptomatic bradycardia Pt needs to follow up with cardiology -evaluation for possible pacemaker Associated Problem(s): Migraine nurtec prescribed -pt amenable to using medication -She also has a hx of CAD and triptans are contraindicated. Associated Problem(s): Acute midline low back pain without sciatica Short course of percocets placed for acute on chronic back pain. Patient was advised of risks and benefits of controlled substance and verbalized understanding. OARRS performed . No suspicious behavior, concerning or suspicious history given at this visit. Pt will not receive any refills of this medication documented in this encounter [facility] 12-15-2021 History of Present illness Narrative Subjective Patient ID: Oniel Norman is a 61 y.o. female. Chief Complaint Patient presents with Migraine Dizziness pain in back HPI Onile Norman is a 61 y.o. female past medical history of osteoarthritis, CADs/p PCI and CABG (SVG-OM1, ROSAS-OM2, SVG-OM3), bipolar disorder, DJD, hypertension, GERD, anxiety, osteoporosis, migraines presenting after ER visit for bradycardia, weakness fatigue and dizziness yesterday. Patient's daughter Joyce is also present Patient was transferred to [facility] yesterday for her symptoms. Unfortunately she left AMA earlier this morning. Patient's daughter reports that unfortunately had a very upsetting experience. Joyce states they were more concerned about her dizziness and her low heart rate and reports that whenever patient's heart rate would go into the forties, her telemetry would sound alarm however this was discontinued by staff. They were quite upset that they had not received the care that they were expecting unfortunately. After reviewing notes Katja's maneuver was completed which helped alleviate patient's dizziness. Cardiology was consulted and they did not feel that admission was necessary as chest pressure/pain was not ischemic in nature. Patient's heart rate did drop to the forties multiple times however per notes blood pressure remained stable and did not feel that further intervention was needed at this time. 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 Notes from yesterday: Weakness and fatigue . She states 4 days ago she became very lightheaded and dizzy. She tried to go to sleep however on Tuesday she woke up and was unable to sit up and it took her 15 to 20 minutes to reorient herself and slowly set up. She felt quite unsteady while walking. Patient states any movement will exacerbate the dizziness. She denies any URI symptoms in the last week. She denies any hearing loss. She did measure her blood pressure on Tuesday and states it was within normal limits however her heart rate dropped to 40s. She has not measured her heart rate since then. Patient stated having left shoulder pain (hx of shoulder bursitis) but denies any numbness or tingling. She states when she tries to lift her arm, she feels 'tug' in her chest She denies any chest pain specifically or pressure. She states increase in fatigue and generalized weakness as well over the last week. She denies any dyspnea on exertion, wheezing or palpitations. Patient does have history of bradycardia and is not on beta-blockers or AV sarah blocking agents however she denies any history of symptomatic bradycardia previously. Today she states that her dizziness has improved significantly but she continues to have lower back pain which was exacerbated over the last few days. She received Percocet in the ED and is requesting a few more day of prescription. We had extensive conversation that due to patient's bradycardia as well as residual dizziness use of Percocets was not recommended however patient's daughter was reassuring and stated that this was the only medication that helps with her pain. Oarrs were reviewed and she has not received this medication in >3 months, I do not suspect any suspicious behavior. Advised the patient to have family at her home over the next few nights when she is using this medication. Migraine headaches- we were discussing nurtec for headaches however this was not sent in as patient was admitted to the ED. Patient states increased in severity occurring every 1 to 2 days, lasting a few hours each time. She continues to take Tylenol and Imitrex which did not alleviate her symptoms. She does notice photophobia as well but denies any nausea or vomiting. Migrane headaches have increased over the last week. Prior to this, she did not have migraines for >6 months. All pertinent positives and negatives are documented in ROS Patient's medications, allergies, past medical history, surgical history history, family history, social history were reviewed. Spent more than 20 minutes with patient, coordinating patient care, including reviewing charts and counseling patient. Past Medical History: Diagnosis Date Acute sinusitis Anxiety Arthritis Back problem Bilateral swelling of feet and ankles Bipolar affect, depressed (HCC) Bunion, right foot 04/29/2021 Callus of foot interdigital on right foot Chronic prescription opiate use Circulation problem Controlled substance agreement signed Coronary heart disease Depression Excessive thirst Hair loss Headache Heart disease Hyperlipidemia Hypertension OK, old Myocardial infarct (HCC) PT STATES SHE HAS HAD 10 HEART ATTACKS FROM 1999 TO 2003 Painful orthopaedic hardware (HCC) Left first MPJ Pharyngitis Weight loss Past Surgical History: Procedure Laterality Date ANGIOPLASTY X 4 APPENDECTOMY N/A BUNIONECTOMY N/A CABG N/A HERNIA REPAIR N/A knee replacement Right 20+ years ago OPEN HEART I & D (GENL) 2003 OTHER SURGICAL HISTORY 2003 PER PT QUADRUPLE BYPASS TOTAL HIP ARTHROPLASTY Right 2017 TOTAL KNEE ARTHROPLASTY Left 2019 Family History Problem Relation Age of Onset Heart disease Mother Hypertension Mother Heart disease Father Hypertension Father Bipolar disorder Father Other (BIPOLAR) Father Diabetes Maternal Grandmother Social History Tobacco Use Smoking status: Former Smoker Smokeless tobacco: Never Used Tobacco comment: QUIT IN 1999 Vaping Use Vaping Use: Never used Substance Use Topics Alcohol use: Yes Comment: occasionally Drug use: Never Allergies Allergen Reactions Iodine Anaphylaxis Penicillins Iodine And Iodide Containing Products Unknown Ispwjpdc-Efgsphopt-Shiauyuytq rash and itching Adhesive Itching and Rash Plastic bandaids Neosporin (Jhz-Glo-Kvabo) [Fgltevvi-Dilebtfvmi-Grulddixk] Rash Ointment only Patient's Medications New Prescriptions OXYCODONE-ACETAMINOPHEN (PERCOCET) 5-325 MG PER TABLET Take 1 (one) tablet by mouth every 8 (eight) hours as needed for pain . RIMEGEPANT 75 MG ODT Dissolve 1 (one) tablet (75 mg total) on top of tongue as needed Do not take more than 1 dose in 24 hours . Previous Medications ASPIRIN 81 MG CHEWABLE TABLET Chew and Swallow 1 (one) tablet (81 mg total) daily . ATORVASTATIN (LIPITOR) 80 MG TABLET Take 1 (one) tablet (80 mg total) by mouth daily . BUMETANIDE (BUMEX) 1 MG TABLET Take 1 (one) tablet (1 mg total) by mouth 2 (two) times a day . ISOSORBIDE MONONITRATE (IMDUR) 30 MG 24 HR TABLET Take 1 (one) tablet (30 mg total) by mouth daily . LAMOTRIGINE (LAMICTAL) 200 MG TABLET Take 1 (one) tablet (200 mg total) by mouth daily . LISINOPRIL (PRINIVIL,ZESTRIL) 2.5 MG TABLET Take 0.5 (one-half) tablet (1.25 mg total) by mouth daily . MECLIZINE (ANTIVERT) 25 MG TABLET Take 0.5 (one-half) tablet (12.5 mg total) by mouth 3 (three) times a day as needed for nausea . PANTOPRAZOLE (PROTONIX) 40 MG TABLET Take 1 (one) tablet (40 mg total) by mouth daily . TRAZODONE (DESYREL) 100 MG TABLET Take 2 (two) tablets (200 mg total) by mouth nightly . Modified Medications No medications on file Discontinued Medications No medications on file Review of Systems Constitutional: Positive for activity change and fatigue. Negative for appetite change, chills, diaphoresis and fever. Eyes: Negative for visual disturbance. Respiratory: Negative for cough, chest tightness, shortness of breath and wheezing. Cardiovascular: Positive for chest pain (pressure). Negative for palpitations and leg swelling. Gastrointestinal: Negative for abdominal pain. Musculoskeletal: Positive for arthralgias (bilateral shoulder pain, chronic) and back pain (chronic). Negative for gait problem and joint swelling. Neurological: Positive for dizziness (improved but not resolved), weakness (generalized) and headaches. Negative for tremors, syncope, speech difficulty and numbness. Psychiatric/Behavioral: The patient is nervous/anxious. Objective Vitals: 12/15/21 1824 BP: 130/82 BP Location: Right arm Patient Position: Sitting Pulse: 63 Resp: 18 Temp: 97.6 F (36.4 C) TempSrc: Temporal SpO2: 96% Weight: 77.7 kg (171 lb 3.2 oz) Height: 5' 6 Estimated body mass index is 27.63 kg/m as calculated from the following: Height as of this encounter: 5' 6 . Weight as of this encounter: 77.7 kg (171 lb 3.2 oz). Physical Exam Vitals and nursing note reviewed. Constitutional: Appearance: Normal appearance. HENT: Head: Normocephalic and atraumatic. Mouth/Throat: Mouth: Mucous membranes are moist. Eyes: Extraocular Movements: Extraocular movements intact. Cardiovascular: Rate and Rhythm: Regular rhythm. Bradycardia present. Heart sounds: Normal heart sounds. Pulmonary: Effort: Pulmonary effort is normal. Breath sounds: Normal breath sounds. Chest: Chest wall: No tenderness. Abdominal: General: Abdomen is flat. There is no distension. Palpations: Abdomen is soft. Musculoskeletal: Right shoulder: Tenderness present. No swelling. Decreased range of motion. Left shoulder: Tenderness present. No swelling. Decreased range of motion. Skin: General: Skin is warm. Neurological: General: No focal deficit present. Mental Status: She is alert and oriented to person, place, and time. Mental status is at baseline. Sensory: Sensation is intact. Motor: Motor function is intact. Coordination: Coordination is intact. Gait: Gait is intact. Psychiatric: Attention and Perception: Attention and perception normal. Mood and Affect: Mood normal. Speech: Speech normal. Behavior: Behavior normal. Thought Content: Thought content normal. Cognition and Memory: Cognition and memory normal. Judgment: Judgment normal. Comments: Looks better today PHQ9: PHOEBE-7 Tobacco Counseling: Counseling given: Not Answered Comment: QUIT IN 1999 Assessment/Plan: Problem List Items Addressed This Visit Cardiovascular and Mediastinum Migraine nurtec prescribed -pt amenable to using medication Relevant Medications rimegepant 75 mg ODT oxyCODONE-acetaminophen (PERCOCET) 5-325 mg per tablet Other Acute midline low back pain without sciatica - Primary Short course of percocets placed for acute on chronic back pain. Patient was advised of risks and benefits of controlled substance and verbalized understanding. OARRS performed . No suspicious behavior, concerning or suspicious history given at this visit. Pt will not receive any refills of this medication Relevant Medications oxyCODONE-acetaminophen (PERCOCET) 5-325 mg per tablet Vertigo Improved significantly -epleys maneuver completed in ED which help w/ pts sx -will discontinue vestibular therapy and meclizine prescribed yesterday Symptomatic bradycardia Pt needs to follow up with cardiology -evaluation for possible pacemaker Return in about 4 weeks (around 01/12/2022) for Follow up Chronic Conditions. For any new medications prescribed today, patient was educated about indications for the medication, how to take the medication and potential side effects of the medications. Liliya Lara MD [facility] [address] [facility] [address] [facility] [id number] Dept: [phone] documented in this encounter [facility] 12-15-2021 History of Present illness Narrative Subjective Patient ID: Oniel Norman is a 61 y.o. female. Chief Complaint Patient presents with Migraine Dizziness pain in back HPI Oniel Norman is a 61 y.o. female past medical history of osteoarthritis, CADs/p PCI and CABG (SVG-OM1, ROSAS-OM2, SVG-OM3), bipolar disorder, DJD, hypertension, GERD, anxiety, osteoporosis, migraines presenting after ER visit for bradycardia, weakness fatigue and dizziness yesterday. Patient's daughter Joyce is also present Patient was transferred to [facility] yesterday for her symptoms. Unfortunately she left AMA earlier this morning. Patient's daughter reports that unfortunately had a very upsetting experience. Joyce states they were more concerned about her dizziness and her low heart rate and reports that whenever patient's heart rate would go into the forties, her telemetry would sound alarm however this was discontinued by staff. They were quite upset that they had not received the care that they were expecting unfortunately. After reviewing notes Katja's maneuver was completed which helped alleviate patient's dizziness. Cardiology was consulted and they did not feel that admission was necessary as chest pressure/pain was not ischemic in nature. Patient's heart rate did drop to the forties multiple times however per notes blood pressure remained stable and did not feel that further intervention was needed at this time. 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 Notes from yesterday: Weakness and fatigue . She states 4 days ago she became very lightheaded and dizzy. She tried to go to sleep however on Tuesday she woke up and was unable to sit up and it took her 15 to 20 minutes to reorient herself and slowly set up. She felt quite unsteady while walking. Patient states any movement will exacerbate the dizziness. She denies any URI symptoms in the last week. She denies any hearing loss. She did measure her blood pressure on Tuesday and states it was within normal limits however her heart rate dropped to 40s. She has not measured her heart rate since then. Patient stated having left shoulder pain (hx of shoulder bursitis) but denies any numbness or tingling. She states when she tries to lift her arm, she feels 'tug' in her chest She denies any chest pain specifically or pressure. She states increase in fatigue and generalized weakness as well over the last week. She denies any dyspnea on exertion, wheezing or palpitations. Patient does have history of bradycardia and is not on beta-blockers or AV sarah blocking agents however she denies any history of symptomatic bradycardia previously. Today she states that her dizziness has improved significantly but she continues to have lower back pain which was exacerbated over the last few days. She received Percocet in the ED and is requesting a few more day of prescription. We had extensive conversation that due to patient's bradycardia as well as residual dizziness use of Percocets was not recommended however patient's daughter was reassuring and stated that this was the only medication that helps with her pain. Oarrs were reviewed and she has not received this medication in >3 months, I do not suspect any suspicious behavior. Advised the patient to have family at her home over the next few nights when she is using this medication. Migraine headaches- we were discussing nurtec for headaches however this was not sent in as patient was admitted to the ED. Patient states increased in severity occurring every 1 to 2 days, lasting a few hours each time. She continues to take Tylenol and Imitrex which did not alleviate her symptoms.She also has a hx of CAD and triptans are contraindicated. She does notice photophobia as well but denies any nausea or vomiting. Migrane headaches have increased over the last week. Prior to this, she did not have migraines for >6 months. All pertinent positives and negatives are documented in ROS Patient's medications, allergies, past medical history, surgical history history, family history, social history were reviewed. Spent more than 20 minutes with patient, coordinating patient care, including reviewing charts and counseling patient. Past Medical History: Diagnosis Date Acute sinusitis Anxiety Arthritis Back problem Bilateral swelling of feet and ankles Bipolar affect, depressed (HCC) Bunion, right foot 04/29/2021 Callus of foot interdigital on right foot Chronic prescription opiate use Circulation problem Controlled substance agreement signed Coronary heart disease Depression Excessive thirst Hair loss Headache Heart disease Hyperlipidemia Hypertension OK, old Myocardial infarct (HCC) PT STATES SHE HAS HAD 10 HEART ATTACKS FROM 1999 TO 2003 Painful orthopaedic hardware (HCC) Left first MPJ Pharyngitis Weight loss Past Surgical History: Procedure Laterality Date ANGIOPLASTY X 4 APPENDECTOMY N/A BUNIONECTOMY N/A CABG N/A HERNIA REPAIR N/A knee replacement Right 20+ years ago OPEN HEART I & D (GENL) 2003 OTHER SURGICAL HISTORY 2004 PER PT QUADRUPLE BYPASS TOTAL HIP ARTHROPLASTY Right 2017 TOTAL KNEE ARTHROPLASTY Left 2019 Family History Problem Relation Age of Onset Heart disease Mother Hypertension Mother Heart disease Father Hypertension Father Bipolar disorder Father Other (BIPOLAR) Father Diabetes Maternal Grandmother Social History Tobacco Use Smoking status: Former Smoker Smokeless tobacco: Never Used Tobacco comment: QUIT IN 1999 Vaping Use Vaping Use: Never used Substance Use Topics Alcohol use: Yes Comment: occasionally Drug use: Never Allergies Allergen Reactions Iodine Anaphylaxis Penicillins Iodine And Iodide Containing Products Unknown Npsijytw-Fjxlaqkpk-Kruchpdqcx rash and itching Adhesive Itching and Rash Plastic bandaids Neosporin (Ixv-Mqk-Nzers) [Qkbwffgw-Qunxctggch-Dsvjonqtp] Rash Ointment only Patient's Medications New Prescriptions OXYCODONE-ACETAMINOPHEN (PERCOCET) 5-325 MG PER TABLET Take 1 (one) tablet by mouth every 8 (eight) hours as needed for pain . RIMEGEPANT 75 MG ODT Dissolve 1 (one) tablet (75 mg total) on top of tongue as needed Do not take more than 1 dose in 24 hours . Previous Medications ASPIRIN 81 MG CHEWABLE TABLET Chew and Swallow 1 (one) tablet (81 mg total) daily . ATORVASTATIN (LIPITOR) 80 MG TABLET Take 1 (one) tablet (80 mg total) by mouth daily . BUMETANIDE (BUMEX) 1 MG TABLET Take 1 (one) tablet (1 mg total) by mouth 2 (two) times a day . ISOSORBIDE MONONITRATE (IMDUR) 30 MG 24 HR TABLET Take 1 (one) tablet (30 mg total) by mouth daily . LAMOTRIGINE (LAMICTAL) 200 MG TABLET Take 1 (one) tablet (200 mg total) by mouth daily . LISINOPRIL (PRINIVIL,ZESTRIL) 2.5 MG TABLET Take 0.5 (one-half) tablet (1.25 mg total) by mouth daily . MECLIZINE (ANTIVERT) 25 MG TABLET Take 0.5 (one-half) tablet (12.5 mg total) by mouth 3 (three) times a day as needed for nausea . PANTOPRAZOLE (PROTONIX) 40 MG TABLET Take 1 (one) tablet (40 mg total) by mouth daily . TRAZODONE (DESYREL) 100 MG TABLET Take 2 (two) tablets (200 mg total) by mouth nightly . Modified Medications No medications on file Discontinued Medications No medications on file Review of Systems Constitutional: Positive for activity change and fatigue. Negative for appetite change, chills, diaphoresis and fever. Eyes: Negative for visual disturbance. Respiratory: Negative for cough, chest tightness, shortness of breath and wheezing. Cardiovascular: Positive for chest pain (pressure). Negative for palpitations and leg swelling. Gastrointestinal: Negative for abdominal pain. Musculoskeletal: Positive for arthralgias (bilateral shoulder pain, chronic) and back pain (chronic). Negative for gait problem and joint swelling. Neurological: Positive for dizziness (improved but not resolved), weakness (generalized) and headaches. Negative for tremors, syncope, speech difficulty and numbness. Psychiatric/Behavioral: The patient is nervous/anxious. Objective Vitals: 12/15/21 1824 BP: 130/82 BP Location: Right arm Patient Position: Sitting Pulse: 63 Resp: 18 Temp: 97.6 F (36.4 C) TempSrc: Temporal SpO2: 96% Weight: 77.7 kg (171 lb 3.2 oz) Height: 5' 6 Estimated body mass index is 27.63 kg/m as calculated from the following: Height as of this encounter: 5' 6 . Weight as of this encounter: 77.7 kg (171 lb 3.2 oz). Physical Exam Vitals and nursing note reviewed. Constitutional: Appearance: Normal appearance. HENT: Head: Normocephalic and atraumatic. Mouth/Throat: Mouth: Mucous membranes are moist. Eyes: Extraocular Movements: Extraocular movements intact. Cardiovascular: Rate and Rhythm: Regular rhythm. Bradycardia present. Heart sounds: Normal heart sounds. Pulmonary: Effort: Pulmonary effort is normal. Breath sounds: Normal breath sounds. Chest: Chest wall: No tenderness. Abdominal: General: Abdomen is flat. There is no distension. Palpations: Abdomen is soft. Musculoskeletal: Right shoulder: Tenderness present. No swelling. Decreased range of motion. Left shoulder: Tenderness present. No swelling. Decreased range of motion. Skin: General: Skin is warm. Neurological: General: No focal deficit present. Mental Status: She is alert and oriented to person, place, and time. Mental status is at baseline. Sensory: Sensation is intact. Motor: Motor function is intact. Coordination: Coordination is intact. Gait: Gait is intact. Psychiatric: Attention and Perception: Attention and perception normal. Mood and Affect: Mood normal. Speech: Speech normal. Behavior: Behavior normal. Thought Content: Thought content normal. Cognition and Memory: Cognition and memory normal. Judgment: Judgment normal. Comments: Looks better today PHQ9: PHOEBE-7 Tobacco Counseling: Counseling given: Not Answered Comment: QUIT IN 1999 Assessment/Plan: Problem List Items Addressed This Visit Cardiovascular and Mediastinum Migraine nurtec prescribed -pt amenable to using medication -She also has a hx of CAD and triptans are contraindicated. Relevant Medications rimegepant 75 mg ODT Other Acute midline low back pain without sciatica - Primary Short course of percocets placed for acute on chronic back pain. Patient was advised of risks and benefits of controlled substance and verbalized understanding. OARRS performed . No suspicious behavior, concerning or suspicious history given at this visit. Pt will not receive any refills of this medication Vertigo Improved significantly -epleys maneuver completed in ED which help w/ pts sx -will discontinue vestibular therapy and meclizine prescribed yesterday Symptomatic bradycardia Pt needs to follow up with cardiology -evaluation for possible pacemaker Return in about 4 weeks (around 01/12/2022) for Follow up Chronic Conditions. For any new medications prescribed today, patient was educated about indications for the medication, how to take the medication and potential side effects of the medications. Liliya Lara MD [facility] [address] [facility] [address] [facility] [address] Dept: [phone] documented in this encounter [facility] 11-19-2021 Miscellaneous Notes Pharmacy to notify pt when ready RECEIVED DOCUMENTATION FROM [facility] REQUESTING REFILLS ON BUMEX AND TRAZODONE. LAST OV 11/03/21. NEXT OV SCHEDULED FOR 01/04/22. 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 I told her it says 11/10/21 [facility] mail order received it. PT saying [facility] never got it , could you send it to the local pharmacy please. traZODone (DESYREL) 100 MG /28/2021 Sig - Route: Take 2 (two) tablets (200 mg total) by mouth nightly . - Oral Class: No Print Pt call back [phone] documented in this encounter [facility] 11-16-2021 Miscellaneous Notes RECEIVED DOCUMENTATION FROM [facility] REQUESTING REFILLS ON BUMEX AND TRAZODONE. LAST OV 11/03/21. NEXT OV SCHEDULED FOR 01/04/22. 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 I told her it says 11/10/21 [facility] mail order received it. PT saying [facility] never got it , could you send it to the local pharmacy please. traZODone (DESYREL) 100 MG [id number]/28/2021 Sig - Route: Take 2 (two) tablets (200 mg total) by mouth nightly . - Oral Class: No Print Pt call back [phone] documented in this encounter [facility] 11-10-2021 Miscellaneous Notes ----- Message from Rosanne Gonsales sent at 11/10/2021 11:17 AM EST ----- Regarding: Rx Refill Contact: oniel [phone] MEDICATION REFILL REQUEST: PCP: Liliya Lara MD Patient called 11/10/21 and is requesting a medication refill for traZODone (DESYREL) 100 MG tablet This was confirmed from the current medication list found in the patients chart. Supply Requested: # of days: 90 days Method of receiving: Send to pharmacy Last set of flowsheet rows for OARRS report: OARRS/NARxCHECK Report Received and Assessed: No data found Date controlled substance agreement signed: No data found Date of last drug screen: No data found Functional Assessment: No data found Will this refill be sent to the preferred pharmacy listed below? Yes Preferred pharmacies: [facility] [address] AT [address] to [place] [address] [address] [facility] [address] Pt Call Back Number Work Phone Not on file. Patient call back message sent to the primary care clinical pool. Rosanne Gonsales ----- Message from Rosanne Gonsales sent at 11/10/2021 11:17 AM EST ----- Regarding: Rx Refill Contact: oniel [phone] MEDICATION REFILL REQUEST: PCP: Liliya Lara MD Patient called 11/10/21 and is requesting a medication refill for traZODone (DESYREL) 100 MG tablet This was confirmed from the current medication list found in the patients chart. Supply Requested: # of days: 90 days Method of receiving: Send to pharmacy Last set of flowsheet rows for OARRS report: OARRS/NARxCHECK Report Received and Assessed: No data found Date controlled substance agreement signed: No data found Date of last drug screen: No data found Functional Assessment: No data found Will this refill be sent to the preferred pharmacy listed below? Yes Preferred pharmacies: [facility] - [facility] [address] AT Portal to [facility] [address] [place] [address] Pt Call Back Number Work Phone Not on file. Patient call back message sent to the primary care clinical pool. Rosanne Gonsales documented in this encounter [facility] 11-07-2021 Instructions Liliya Lara MD - 11/07/2021 6:53 PM EST Problem List Items Addressed This Visit Cardiovascular and Mediastinum CAD (coronary artery disease), [place] coronary artery Status post bypass graft. Currently on Imdur and Lasix which we will change to Bumex she is also taking aspirin and statin as well as lisinopril Last cardiac cath was in 2005 at which time she was not a candidate for surgery. Patient is following up with cardiology. Relevant Medications bumetanide (BUMEX) 1 MG tablet isosorbide mononitrate (IMDUR) 30 MG 24 hr tablet Other Insomnia Currently doing well on trazodone 200 mg nightly No changes Relevant Medications traZODone (DESYREL) 100 MG tablet Memory problem - Primary Recall of words 2 out of 3 Sequence and conc-patient able to repeat days of the week backwards correctly Will test TSH, vitamin B12, RPR and folate -Neurology referral for neuro cognitive assessment Relevant Orders Vitamin B12 RPR TSH Folate Ambulatory referral to Neurology Acute midline low back pain without sciatica For acute pain, rest, intermittent application of cold packs (later, may switch to heat, but do not sleep on heating pad), analgesics and Medrol dose pack prescribed. Proper lifting with avoidance of heavy lifting discussed. Consider Physical Therapy and XRay studies if not improving. Call or return to clinic prn if these symptoms worsen or fail to improve as anticipated. Relevant Medications meloxicam (MOBIC) 15 MG tablet methylPREDNISolone (MEDROL DOSEPACK) 4 mg tablet If any referrals were placed at the time of your visit please allow 2 weeks for processing. If you haven't heard from anyone within 2 weeks please contact my office so we can look into the status of your referral. If you were given any labs today please ensure they are completed according to the directions given. Most normal results will be available through [facility] however if abnormal, you will be notified. Please allow 48-72 hours for review, and let you know what steps, if any, are needed next. If you haven't heard from us after that please call to inquire. If labs were ordered to be done PRIOR to your next visit we will discuss the results at the time of your office visit. If any procedures or imaging studies were ordered that must be prior authorized please give us 2 weeks to get them approved. Once approved someone should call you to schedule them or give you a date and time that they were scheduled for. If you haven't heard anything within 2 weeks of the office visit please call the office so we can look into their status. Customer Service/Billing Questions: [phone] [facility] Assistance: [phone] or [phone] Financial Assistance: [phone] or [phone] documented in this encounter [facility] 11-07-2021 Miscellaneous Notes Associated Problem(s): CAD (coronary artery disease), [place] coronary artery Status post bypass graft. Currently on Imdur and Lasix which we will change to Bumex she is also taking aspirin and statin as well as lisinopril Last cardiac cath was in 2005 at which time she was not a candidate for surgery. Patient is following up with cardiology. Associated Problem(s): Memory problem Recall of words 2 out of 3 Sequence and conc-patient able to repeat days of the week backwards correctly Will test TSH, vitamin B12, RPR and folate -Neurology referral for neuro cognitive assessment Associated Problem(s): Insomnia Currently doing well on trazodone 200 mg nightly No changes Associated Problem(s): Acute midline low back pain without sciatica For acute pain, rest, intermittent application of cold packs (later, may switch to heat, but do not sleep on heating pad), analgesics and Medrol dose pack prescribed. Proper lifting with avoidance of heavy lifting discussed. Consider Physical Therapy and XRay studies if not improving. Call or return to clinic prn if these symptoms worsen or fail to improve as anticipated. documented in this encounter [facility] 11-03-2021 History of Present illness Narrative Subjective Patient ID: Oniel Norman is a 60 y.o. female. Chief Complaint Patient presents with Other Cortisone shot HPI Patient is a very pleasant 60-year-old female with a past medical history of osteoarthritis, CAD, bipolar disorder, DJD, hypertension, GERD, anxiety, osteoporosis, migraines presenting for a follow-up visit for chronic conditions. Right foot severe hallux valgus with 1st MTP degenerative changes-status post surgery and currently receiving physical therapy. Patient does have bilateral lower leg edema, worse on her right . She was previously taking Bumex 2 mg but this was changed to Lasix 40 mg twice daily. However today she states that her lower leg edema has worsened again and she would like to switch to Bumex again. We did have an extensive discussion about good Rx and helping her find coverage for this. She states that this worked very well for her and she would like to try this medication again. Memory impairment-patient states over the last few months her memory impairment has become much worse and she is beginning to become very concerned. She states that she loses her keys, she forgets her train of thought, she forgets why she walks into a room. And during our conversation patient would stop talking and forget what she was talking about and would have to be reoriented. Patient does state having a family history of Alzheimer's and states that for her father it started around this age. She is concerned and would like further testing. Back pain patient states having lower back pain over the last few days -patient states that woke up in the morning with this pain. She believes that she slept on it wrong . Pain is nonradiating, no cauda equina symptoms, no numbness tingling or weakness lower extremities more so than astrid. Patient denies any trauma to the area. Insomnia symptoms well controlled with trazodone, no acute complications. Patient requesting refill. CAD-patient has coronary artery bypass and multiple stents. Currently maintained on medical therapy. Patient is on beta-cristiana due to bradycardia. Currently taking Imdur andlasix which we will change to bumex. She is also taking aspirin and statin as well as lisinopril. No acute complications. She denies any significant heart failure symptoms. Last cardiac cath was in 2005 at which time she was not a candidate for surgery. Patient is following up with cardiology. All pertinent positives and negatives are documented in ROS Patient's medications, allergies, past medical history, surgical history history, family history, social history were reviewed. Spent more than 20 minutes with patient, coordinating patient care, including reviewing charts and counseling patient. Patient Active Problem List Diagnosis Anxiety Osteoarthritis of knee 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) Bipolar disorder, most recent episode depressed (HCC) CAD (coronary artery disease), [place] coronary artery Degeneration of lumbar intervertebral disc Edema of lower extremity Essential hypertension Gastroesophageal reflux disease Hemorrhoids Hypercholesterolemia Insomnia Migraine Osteoporosis Panic attack S/P CABG x 3 Seasonal allergies Secondary localized osteoarthrosis of lower leg Status post knee replacement Back problem Bilateral swelling of feet and ankles Chronic prescription opiate use Circulation problem Controlled substance agreement signed Hair loss Heart disease Weight loss Acute combined systolic and diastolic heart failure (HCC) Beta-cristiana intolerance Enlargement of right atrium Vitamin D deficiency Cellulitis of fourth toe, right Valgus deformity of foot, right Metatarsus adductus of right foot Memory problem Acute midline low back pain without sciatica Past Surgical History: Procedure Laterality Date ANGIOPLASTY X 4 APPENDECTOMY N/A BUNIONECTOMY N/A CABG N/A HERNIA REPAIR N/A knee replacement Right 20+ years ago OPEN HEART I & D (GENL) 2003 OTHER SURGICAL HISTORY 2004 PER PT QUADRUPLE BYPASS TOTAL HIP ARTHROPLASTY Right 2017 TOTAL KNEE ARTHROPLASTY Left 2019 Family History Problem Relation Age of Onset Heart disease Mother Hypertension Mother Heart disease Father Hypertension Father Bipolar disorder Father Other (BIPOLAR) Father Diabetes Maternal Grandmother Social History Tobacco Use Smoking status: Former Smoker Smokeless tobacco: Never Used Tobacco comment: QUIT IN 1999 Vaping Use Vaping Use: Never used Substance Use Topics Alcohol use: Yes Drug use: Never Allergies Allergen Reactions Iodine Anaphylaxis Penicillins Iodine And Iodide Containing Products Unknown Glkptdtt-Mafyqlhha-Sdwjjucyjr rash and itching Adhesive Itching and Rash Plastic bandaids Neosporin (Kuw-Nar-Aoqht) [Feojtjya-Qrplriikpe-Hezpzfhsp] Rash Ointment only Outpatient Medications as of 11/03/2021 Medication Sig aspirin 81 mg chewable tablet Chew and Swallow 1 (one) tablet (81 mg total) daily . atorvastatin (LIPITOR) 80 MG tablet Take 1 (one) tablet (80 mg total) by mouth daily . lamoTRIgine (LAMICTAL) 200 MG tablet Take 1 (one) tablet (200 mg total) by mouth daily . lisinopriL (PRINIVIL,ZESTRIL) 2.5 MG tablet Take 0.5 (one-half) tablet (1.25 mg total) by mouth daily . pantoprazole (PROTONIX) 40 MG tablet Take 1 (one) tablet (40 mg total) by mouth daily . SUMAtriptan (IMITREX) 50 MG tablet Take 1 (one) tablet (50 mg total) by mouth every 2 (two) hours as needed for migraine Max of 200 mg in 24hrs . tiZANidine (ZANAFLEX) 4 MG tablet Take 1 (one) tablet (4 mg total) by mouth 2 (two) times a day as needed for muscle spasms . [DISCONTINUED] furosemide (LASIX) 40 MG tablet Take 1 (one) tablet (40 mg total) by mouth 2 (two) times a day . [DISCONTINUED] isosorbide mononitrate (IMDUR) 30 MG 24 hr tablet Take 1 (one) tablet (30 mg total) by mouth daily . [DISCONTINUED] traZODone (DESYREL) 100 MG tablet Take 2 (two) tablets (200 mg total) by mouth nightly . Review of Systems Constitutional: Negative for chills, diaphoresis, fatigue and fever. Eyes: Negative for redness and visual disturbance. Respiratory: Negative for cough, chest tightness, shortness of breath and wheezing. Cardiovascular: Positive for leg swelling (Bilateral, worse on right). Negative for chest pain and palpitations. Gastrointestinal: Negative for abdominal pain, diarrhea and nausea. Musculoskeletal: Right shoulder pain Skin: Negative for wound. Neurological: Negative for dizziness, tremors, speech difficulty, weakness, light-headedness and headaches. Memory impairment Psychiatric/Behavioral: Negative for agitation, confusion, dysphoric mood and sleep disturbance (Improved with trazodone). The patient is not nervous/anxious. Objective Vitals: 11/03/21 1518 BP: 95/60 BP Location: Right arm Patient Position: Sitting BP Cuff Size: Adult Pulse: 61 Resp: 16 Temp: 98.4 F (36.9 C) TempSrc: Temporal SpO2: 96% Weight: 75.3 kg (166 lb) Height: 5' 6 Estimated body mass index is 26.79 kg/m as calculated from the following: Height as of this encounter: 5' 6 . Weight as of this encounter: 75.3 kg (166 lb). Physical Exam Vitals and nursing note reviewed. Constitutional: Appearance: Normal appearance. HENT: Head: Normocephalic and atraumatic. Mouth/Throat: Mouth: Mucous membranes are moist. Eyes: Extraocular Movements: Extraocular movements intact. Cardiovascular: Rate and Rhythm: Normal rate and regular rhythm. Heart sounds: Normal heart sounds. Pulmonary: Effort: Pulmonary effort is normal. Breath sounds: Normal breath sounds. Abdominal: General: Abdomen is flat. There is no distension. Palpations: Abdomen is soft. Musculoskeletal: Lumbar back: Tenderness present. Right lower leg: Edema (+1) present. Left lower leg: Edema (+1) present. Skin: General: Skin is warm. Neurological: General: No focal deficit present. Mental Status: She is alert and oriented to person, place, and time. Mental status is at baseline. Cranial Nerves: No cranial nerve deficit. Sensory: Sensation is intact. No sensory deficit. Motor: Motor function is intact. Coordination: Coordination is intact. Gait: Gait normal. Psychiatric: Attention and Perception: Attention and perception normal. Mood and Affect: Mood normal. Speech: Speech normal. Behavior: Behavior normal. Thought Content: Thought content normal. Cognition and Memory: Cognition normal. Memory is impaired. Judgment: Judgment normal. Comments: During interview patient would hesitate and discontinue talking. You have 3 or oriented to restart discussion Recall of words <2/3 Patient was able to say the names of the week backwards correctly PHQ9: PHOEBE-7 Tobacco Counseling: Counseling given: Not Answered Comment: QUIT IN 1999 Assessment/Plan: Problem List Items Addressed This Visit Cardiovascular and Mediastinum CAD (coronary artery disease), [place] coronary artery Status post bypass graft. Currently on Imdur and Lasix which we will change to Bumex she is also taking aspirin and statin as well as lisinopril Last cardiac cath was in 2005 at which time she was not a candidate for surgery. Patient is following up with cardiology. Relevant Medications bumetanide (BUMEX) 1 MG tablet isosorbide mononitrate (IMDUR) 30 MG 24 hr tablet Other Insomnia Currently doing well on trazodone 200 mg nightly No changes Relevant Medications traZODone (DESYREL) 100 MG tablet Memory problem - Primary Recall of words 2 out of 3 Sequence and conc-patient able to repeat days of the week backwards correctly Will test TSH, vitamin B12, RPR and folate -Neurology referral for neuro cognitive assessment Relevant Orders Vitamin B12 RPR TSH Folate Ambulatory referral to Neurology Acute midline low back pain without sciatica For acute pain, rest, intermittent application of cold packs (later, may switch to heat, but do not sleep on heating pad), analgesics and Medrol dose pack prescribed. Proper lifting with avoidance of heavy lifting discussed. Consider Physical Therapy and XRay studies if not improving. Call or return to clinic prn if these symptoms worsen or fail to improve as anticipated. Relevant Medications meloxicam (MOBIC) 15 MG tablet methylPREDNISolone (MEDROL DOSEPACK) 4 mg tablet Return in about 3 months (around 02/01/2022) for Follow Up. For any new medications prescribed today, patient was educated about indications for the medication, how to take the medication and potential side effects of the medications. Liliya Lara MD documented in this encounter [facility] 10-27-2021 History of Present illness Narrative [facility] Evaluation Today's Date 10/27/2021 Patient Name: Oniel Norman Date of : 1960 Case Name: Right Foot Pain Functional Diagnosis: 1. Valgus deformity of foot, right 2. Metatarsus adductus of right foot Clinical Information: Subjective Referring Diagnosis: Valgus Deformity of Right Foot History of Present Illness Surgery Date: 08/12/2021 Days Post-Op: 76 Subjective History: Pt reports c/o chronic right foot pain and hypersensitivity. She also reports some numbness in the great toe and swelling in the lower leg. She underwent surgery to correct valgus deformity of her forefoot (toes 1-4). She reports increased pain with standing and walking as well as limited tolerance to touch and pressure. She is limited with footwear d/t pain. Pain Scale: Pain location: ankle/foot Average Pain: 8/10 Pain at highest: 10/10 Aggravating factors: prolonged standing and walking, pressure/touch Easing factors: rest/sitting 24 Hour Symptom Behavior Morning Pain: sudden End of day pain: worse Personal Goals: Decrease pain and improve activity tolerance to prior level of function Functional Mobility Status Functional Limitations: limited mobility and standing Current Mobility Status: Community: no device and independent Current Activity Level: low active Social Support: Jehovah'S Witness, social, or cultural considerations to be made aware of before starting treatment: No Home Environment: Current Home Environment: Setup: single story house (does have basement)Activities of Daily Living: independent with all Instrumental Activities of Daily Living: to be assessed 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 Sleep Assessment Sleep disturbance: Sleep Disturbance Red Flags: None Comments: Barriers to Care: None Jehovah'S Witness, social, or cultural considerations to be made aware of before starting treatment: No Ankle/Foot Right Ankle/Foot Range of Motion: Dorsiflexion Active: 12 Plantar Flexion Active: 35 Inversion Active: 35 Eversion Active: 5 Muscle Strength: DorsiFlexion: 5 Plantar Flexion: 5 Inversion: 5 Eversion: 5 Other Incision site: healing as expected and intact Skin assessment: foot warmth and erythema Sensation: normal Swelling: Positive Swelling (cm): Figure 8: 52.6 [place]: 27.4 Met. Base: 23.7 Treatments: Physical Therapy Exercise Log - 10/27/21 1316 OTHER Precautions/Contraindications Supervising PT: Tez Notes Eval: 1:02 - 1:47 Therapeutic Exercise (22074) Intervention provided written handout for desensitization Parameters educated pt on soaking in ice water and elevating for pain a swelling PT Treatment Times Total Treatment Time 45 Goals: Physical Therapy Ortho Goals: MOBILITY: Patient will be able to ambulate for 1 hour in community without difficulty in 6 weeks. MOBILITY: Patient will be able to ambulate on uneven surfaces without difficulty in 6 weeks. MOBILITY: Patient will be able to ascend/descend stairs without difficulty in 6 weeks. SELF CARE: Patient will be able to don/doff socks and shoes without pain in 6 weeks. IMPAIRMENT: Improve pain from 10/10 to <4/10 during prolonged standing, walking and when wearing shoes in 6 weeks IMPAIRMENT: Improve AROM of Right Ankle PF from 35 degrees to at least 45 degrees in 6 weeks. OTHER: Patient will be able to properly demonstrate independence with HEP in 1 week. CPT Code 08679 Low 81665 Moderate 24919 High History 0 1-2 3+ Comorbidities: anxiety, cardiac history, chronic pain, depression, HTN and prior surgical history, Personal factors: chronicity or severity of the current condition Examination of body systems (elements of body structures & functions, activity limitations, and/or participation restrictions) 1-2 elements 3+ elements 4+ elements See below clinical impression Clinical Presentation Stable Evolving Unstable As evidenced by reproduction of or changes in symptoms with certain movements and improving symptom level since surgical intervention Decision Making Low (FOTO >/= 69) Moderate (FOTO 34 - 68) High (FOTO </= 33) Clinical Judgement Pt is a 60 y.o. female who presents to PT services s/p right foot surgery. Upon assessment, pt has been found with the following impairments: decreased ROM, decreased strength, swelling, pain, altered sensation and Numbness/tingling. 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 The pt would benefit from skilled PT services focused on the above listed impairments and limitations in order to safely progress pt to their desired level of function. Pt to be discharged from OP PT services if/when goals are met, if they fail to make progress with conservative management in PT, if their level of progress plateaus, or if they do not maintain compliance with attendance or HEP. At this time, it is my clinical judgment that services are medically necessary. Plan of Care Frequency of Visits: 2 times per week Duration: 6 weeks Interventions: Therapeutic Exercise (62918), Neuromuscular Re-Education (16146), Manual Therapy (97217), Gait Training (95217), Hot/Cold Pack (21866) and Vasopneumatic (21556) Rehab Potential: good Suicide Screen Signs and Symptoms of Abuse/Neglect: No Actions Taken: No Suicide Risk: Does the patient feel like ending their life today?No Actions Taken: No Patient Education Provided Pt was educated on the benefits of therapy and importance of compliance with sessions and HEP for rehabilitation. Pt was also educated on treatment diagnosis, POC, and frequency/duration of treatment. Clinical Impression Pt would benefit from PT interventions s/p right foot surgery to address impairments in ankle ROM and stability as well as management of pain and sensitivity. Dario Balderas PT State License, [id number] documented in this encounter [facility] documented as of this encounter (statuses as of 02/17/2022) [address] History of Past illness Narrative* Problem Noted Date Resolved Date Post-operative state 02/11/2010 01/16/2015 documented as of this encounter (statuses as of 08/12/2022) [address] History of Past illness Narrative* Problem Noted Date Resolved Date Post-operative state 02/11/2010 01/16/2015 documented as of this encounter (statuses as of 10/25/2022) [address] History of Past illness Narrative* Problem Noted Date Resolved Date Post-operative state 02/11/2010 01/16/2015 documented as of this encounter (statuses as of 11/03/2022) [address] History of Past illness Narrative* Problem Noted Date Resolved Date Post-operative state 02/11/2010 01/16/2015 documented as of this encounter (statuses as of 11/03/2022) [address] History of Past illness Narrative* Problem Noted Date Resolved Date Post-operative state 02/11/2010 01/16/2015 documented as of this encounter (statuses as of 04/28/2023) [address] History of Past illness Narrative* Problem Noted Date Diagnosed Date Resolved Date Post-operative state 02/11/2010 015 documented as of this encounter (statuses as of 08/10/2023) [address] History of Past illness Narrative* Problem Noted Date Diagnosed Date Resolved Date Post-operative state 02/11/2010 015 documented as of this encounter (statuses as of 08/30/2023) [place] [address] History of Past illness Narrative* Problem Noted Date Diagnosed Date Resolved Date Post-operative state 02/11/2010 015 documented as of this encounter (statuses as of 09/02/2023) [place] [address] History of Past illness Narrative* Problem Noted Date Diagnosed Date Resolved Date Post-operative state 02/11/2010 015 documented as of this encounter (statuses as of 09/14/2023) [address] History of Past illness Narrative* Problem Noted Date Diagnosed Date Resolved Date Post-operative state 02/11/2010 015 documented as of this encounter (statuses as of 09/20/2023) [address] History of Past illness Narrative* Problem Noted Date Diagnosed Date Resolved Date Post-operative state 02/11/2010 015 documented as of this encounter (statuses as of 09/21/2023) [facility]-31-2010 History of Past illness Narrative* Problem Noted Date Diagnosed Date Resolved Date Post-operative state 02/11/2010 015 documented as of this encounter (statuses as of 09/22/2023) [place] [address] History of Past illness Narrative* Problem Noted Date Diagnosed Date Resolved Date Post-operative state 02/11/2010 015 documented as of this encounter (statuses as of 09/28/2023) [place] [address] History of Past illness Narrative* Problem Noted Date Diagnosed Date Resolved Date Post-operative state 02/11/2010 015 documented as of this encounter (statuses as of 10/25/2023) [address] History of Past illness Narrative* Problem Noted Date Diagnosed Date Resolved Date Post-operative state 02/11/2010 015 documented as of this encounter (statuses as of 10/27/2023) [facility] Valgus deformity of foot, right- Primary Metatarsus adductus of right foot [facility] Diagnosis Valgus deformity of foot, right Metatarsus adductus of right foot [facility]* Diagnosis Memory problem- Primary Memory loss Insomnia, unspecified type Acute midline low back pain without sciatica Coronary artery disease involving [place] coronary artery of [place] heart with other form of angina pectoris (HCC) [facility]* Diagnosis Insomnia, unspecified type [facility]* Diagnosis Insomnia, unspecified type [facility]* Diagnosis Insomnia, unspecified type [facility]* Diagnosis Insomnia, unspecified type Coronary artery disease involving [place] coronary artery of [place] heart with other form of angina pectoris (HCC) [facility]* Diagnosis Primary osteoarthritis of knee, unspecified laterality- Primary Osteoporosis, unspecified osteoporosis type, unspecified pathological fracture presence [facility]* Diagnosis Insomnia, unspecified type Coronary artery disease involving [place] coronary artery of [place] heart with other form of angina pectoris (HCC) [facility]* Diagnosis Acute midline low back pain without sciatica- Primary Intractable migraine with status migrainosus, unspecified migraine type Symptomatic bradycardia Vertigo Dizziness and giddiness [facility]* Diagnosis Insomnia, unspecified type [facility]* Diagnosis Allergic reaction, initial encounter [facility]* Diagnosis Migraine with status migrainosus, not intractable, unspecified migraine type- Primary [facility]* Diagnosis Encounter for screening mammogram for breast cancer- Primary 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) Intractable migraine without status migrainosus, unspecified migraine type Symptomatic bradycardia [facility]* Diagnosis Encounter for gynecological examination- Primary Bilateral shoulder bursitis Coronary artery disease involving [place] coronary artery of [place] heart with other form of angina pectoris (HCC) Edema of lower extremity [facility]* Diagnosis Need for COVID-19 vaccine- Primary [facility]* Diagnosis Coronary artery disease involving [place] coronary artery of [place] heart with other form of angina pectoris (HCC)- Primary Bipolar disorder, most recent episode depressed (HCC) Bilateral shoulder bursitis Intractable migraine without status migrainosus, unspecified migraine type Essential hypertension Unspecified essential hypertension Osteoporosis, unspecified osteoporosis type, unspecified pathological fracture presence Hypercholesterolemia Pure hypercholesterolemia [facility]* Diagnosis Anxiety- Primary Anxiety state, unspecified [facility] Financial difficulties- Primary Inadequate material resources Anxiety Anxiety state, unspecified Arm skin lesion, right Unspecified disorder of skin and subcutaneous tissue [facility] Diagnosis Bilateral shoulder bursitis- Primary [facility] Diagnosis Anxiety- Primary Anxiety state, unspecified Coronary artery disease involving [place] coronary artery of [place] heart with other form of angina pectoris (HCC) Bilateral shoulder bursitis Bipolar disorder, most recent episode depressed ([facility]) [facility] Diagnosis Degeneration of lumbar intervertebral disc- Primary Degeneration of lumbar or lumbosacral intervertebral disc [facility] Diagnosis Left hip pain- Primary Pain in joint, pelvic region and thigh Bilateral shoulder bursitis Bipolar disorder, most recent episode depressed ([facility]) Essential hypertension Unspecified essential hypertension [facility] Diagnosis Coronary artery disease involving [place] coronary artery of [place] heart with other form of angina pectoris (HCC) [facility] Diagnosis Coronary atherosclerosis due to lipid rich plaque- Primary Hypertension, unspecified type Sinus bradycardia Other specified cardiac dysrhythmias Beta-cristiana intolerance Other drug allergy S/P CABG x 3 Postsurgical aortocoronary bypass status Mixed hyperlipidemia S/P angioplasty with stent Other postprocedural status [facility] Diagnosis Degeneration of lumbar intervertebral disc- Primary Degeneration of lumbar or lumbosacral intervertebral disc [facility] Diagnosis Secondary localized osteoarthrosis of lower leg- Primary Secondary localized osteoarthrosis, lower leg [facility] Diagnosis Preop exam for internal medicine- Primary Other specified pre-operative examination Coronary artery disease involving [place] coronary artery of [place] heart with other form of angina pectoris (HCC) Insomnia, unspecified type Intractable migraine without status migrainosus, unspecified migraine type [facility] Diagnosis Coronary atherosclerosis due to lipid rich plaque- Primary Pre-operative cardiovascular examination 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) Coronary atherosclerosis of artery bypass graft S/P angioplasty with stent Other postprocedural status Chronic heart failure with preserved ejection fraction (HCC) [facility]* Diagnosis Anxiety Anxiety state, unspecified [facility] Diagnosis Anxiety- Primary Anxiety state, unspecified Insomnia, unspecified type Coronary artery disease involving [place] coronary artery 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) Bipolar disorder, most recent episode depressed ([facility]) Low vitamin D level Hypercholesterolemia Pure hypercholesterolemia Therapeutic drug monitoring Encounter for therapeutic drug monitoring Vitamin D deficiency Impaired glucose tolerance in obese Other abnormal glucose Intractable migraine without aura and without status migrainosus Chronic heart failure with preserved ejection fraction (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) Preoperative cardiovascular examination Pre-operative cardiovascular examination documented in this encounter [facility] note* Diagnosis Financial difficulties- Primary Inadequate material resources Anxiety Anxiety state, unspecified Preop exam for internal medicine Other specified pre-operative examination [facility] Diagnosis S/P lumbar spine operation- Primary Other postprocedural status documented in this encounter [facility] note* Diagnosis Degeneration of lumbar intervertebral disc- Primary Degeneration of lumbar or lumbosacral intervertebral disc [facility] Diagnosis Intractable back pain- Primary Coronary artery disease involving [place] coronary artery 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) Anxiety Anxiety state, unspecified documented in this encounter [facility] note* Diagnosis Degeneration of lumbar intervertebral disc- Primary Degeneration of lumbar or lumbosacral intervertebral disc [facility] Diagnosis Degeneration of lumbar intervertebral disc- Primary Degeneration of lumbar or lumbosacral intervertebral disc [facility] Diagnosis S/P lumbar fusion- Primary Arthrodesis status documented in this encounter [facility] note* Diagnosis Chronic low back pain, unspecified back pain laterality, unspecified whether sciatica present- Primary Restless leg Restless legs syndrome (RLS) Essential hypertension Unspecified essential hypertension Anxiety Anxiety state, unspecified Dermatitis Contact dermatitis and other eczema, due to unspecified cause documented in this encounter [facility] note* Diagnosis S/P lumbar fusion Arthrodesis status documented in this encounter [facility] note* Diagnosis Sacroiliac joint pain- Primary Disorders of sacrum documented in this encounter [facility] note* Diagnosis Sacroiliac joint pain- Primary Disorders of sacrum documented in this encounter [facility] note* Diagnosis Sacroiliitis (HCC) Sacroiliitis, not elsewhere classified documented in this encounter [facility] note* Diagnosis Sacroiliitis (HCC)- Primary Sacroiliitis, not elsewhere classified Chronic pain of multiple sites Generalized pain S/P lumbar fusion Arthrodesis status [facility] Name Dates Details Instructions not documented [employer] Phone: Instructions* Name Dates Details Instructions not documented [email or web address] [facility] Phone: Reason for referral (narrative)* Consultation (Routine) - Pending Review Specialty Diagnoses / Procedures Referred By Miriam quiñonez Referred To Contact [employer] Diagnoses Anxiety Financial difficulties Liliya Lara MD [address] [place] [address] Referral ID Status Reason Start Date Expiration Date Visits Requested Visits Authorized [id number] Pending Review Specialty Services Required/Pat ient's Best Interest 05/04/2023 05/03/2024 1 1 Scheduling Instructions ocular care aide for medical bills [facility] for referral (narrative)* Diagnostic Procedure Only (Routine) - Pending Review Specialty Diagnoses / Procedures Referred By Miriam t Referred To Contact XR IMAGING Diagnoses S/P lumbar fusion Procedures XR LUMBAR MOTION 4V AP/LAT/ FLEX/EXT RADEX SPINE LUMBOSACRAL MINIMUM 4 VIEWS Walt Carrion APRN.[facility] [address] [place], [place] [phone] Xr Imaging [place] [address] Referral ID Status Reason Start Date Expiration Date Visits Requested Visits Authorized [id number] Pending Review Auto-Generat ed Referral 08/09/2023 09/07/2024 1 1 [facility] for referral (narrative)* Diagnostic Procedure Only (Routine) - Closed Specialty Diagnoses / Procedures Referred By Contac t Referred To Contact XR IMAGING Diagnoses Sacroiliitis (HCC) Procedures XR SACRUM/COCCYX 3V AP/LAT RADEX SACRUM & COCCYX MINIMUM 2 VIEWS Walt Carrion APRN.CNP [address] [place] [address] Xr Imaging [place] [address] Referral ID Status Reason Start Date Expiration Date V isits Requested Visits Authorized [id number] Closed Auto-Generate d Referral 10/24/2023 11/22/2024 1 1 [facility] for referral (narrative)* Diagnostic Procedure Only (Routine) - Closed Specialty Diagnoses / Procedures Referred By Contac t Referred To Contact XR IMAGING Diagnoses Sacroiliitis (HCC) Procedures XR SACRUM/COCCYX 3V AP/LAT RADEX SACRUM & COCCYX MINIMUM 2 VIEWS Walt Carrion APRN.[facility] [address] [place] [phone] Xr Imaging [place] [address] Referral ID Status Reason Start Date Expiration Date V isits Requested Visits Authorized [id number] Closed Auto-Generate d Referral 10/24/2023 11/22/2024 1 1 * Consult, Test, Treat (Routine) - Closed Specialty Diagnoses / Procedures Referred By Contac t Referred To Contact Rheumatology Diagnoses Chronic pain of multiple sites Procedures CONSULT TO RHEUM/IMMUN DISEASE OFFICE/OUTPATIENT NEW HIGH MDM 60-74 MINUTES Walt Carrion APRN.CNP [address] [place] [address] Referral ID Status Reason Start Date Expiration Date V isits Requested Visits Authorized [id number] Closed PCP Requested Referral 10/24/2023 10/23/2024 1 1 * Consult, Test, Treat (Routine) - Pending Review Specialty Diagnoses / Procedures Referred By Contac t Referred To Contact [facility] [place] Diagnoses Chronic pain of multiple sites Sacroiliitis (HCC) S/P lumbar fusion Procedures [facility] TO [facility]) OFFICE/OUTPATIENT NEW HIGH MDM 60-74 MINUTES Walt Carrion APRN.[facility] [address] [place] [address] Referral ID Status Reason Start Date Expiration Date Visits Requested Visits Authorized [id number] Pending Review PCP Requested Referral 3 10/23/2024 1 1 [facility] for visit Narrative* Diagnostic Procedure Only (Routine) - Closed Specialty Diagnoses / Procedures Referred By Contac t Referred To Contact XR IMAGING Diagnoses S/P lumbar fusion Procedures XR LUMBAR MOTION 4V AP/LAT/ FLEX/EXT RADEX SPINE LUMBOSACRAL MINIMUM 4 VIEWS Walt Carrion APRN.[employer] [employer] [address] [place] [address] Xr Imaging [place] [address] Referral ID Status Reason Start Date Expiration Date V isits Requested Visits Authorized [id number] Closed Auto-Generate d Referral 08/09/2023 09/07/2024 1 1 [facility] for visit Narrative* Outpatient Procedure (Routine) - Closed Specialty Diagnoses / Procedures Referred By Contac t Referred To Contact Spine Health / SPINE Diagnoses Dx: Sacroiliitis (HCC) [M46.1 (ICD-10-CM)] Procedures Intra-articular Sacroiliac joint injection: Bilateral CPT 45316 Tommy Brennan MD [address] [place] [address] Spine Med [address] [place] [address] Referral ID Status Reason Start Date Expiration Date Visits Re quested Visits Authorized [id number] Closed 09/06/2023 11/13/2023 1 1 [facility] Summary Purpose Family History No Family History Records Found Grandmother Name Dates Details Family history of diabetes m ellitus(V18.0, Z83.3) Status:Active Mother Name Dates Details Family history of cardiac di sorder(V17.49, Z82.49) Status:Active Father Name Dates Details No pertinent family history( V49.89, Z78.9) Status:Active Grandmother Name Dates Details Family history of diabetes m ellitus(V18.0, Z83.3) Status:Active Mother Name Dates Details Family history of cardiac di sorder(V17.49, Z82.49) Status:Active Father Name Dates Details No pertinent family history( V49.89, Z78.9) Status:Active Grandmother Name Dates Details Family history of diabetes m ellitus(V18.0, Z83.3) Status:Active Mother Name Dates Details Family history of cardiac di sorder(V17.49, Z82.49) Status:Active Father Name Dates Details No pertinent family history( V49.89, Z78.9) Status:Active Unknown Family Member Name Dates Details Family history of cardiac di sorder: Mother(V17.49, Z82.49) Status:Active Family history of diabetes m ellitus: Grandmother(V18.0, Z83.3) Status:Active No pertinent family history: Father(V49.89, Z78.9) Status:Active Grandmother Name Dates Details Family history of diabetes m ellitus(V18.0, Z83.3) Status:Active Mother Name Dates Details Family history of cardiac di sorder(V17.49, Z82.49) Status:Active Father Name Dates Details No pertinent family history( V49.89, Z78.9) Status:Active Advance Directives No Advanced Directives Records FoundDocuments on File Type Date Recorded 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 Commissioner Expl 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 Advance Directives and Living Will Documents on File Type Date Recorded 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 Commissioner Expl 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 Advance Directives and Living Will Documents on File Type Date Recorded 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 Commissioner Expl anation Advance Directives and Livin g Will 02/05/2021 7:46 AM Documents on File Type Date Recorded 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 Commissioner Expl anation Advance Directives and Livin g Will 02/05/2021 7:46 AM Documents on File Type Date Recorded 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 Commissioner Expl anation Advance Directives and Livin g Will 12/14/2021 5:10 PM Documents on File Type Date Recorded 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 Commissioner Expl anation Advance Directives and Livin g Will 12/14/2021 5:10 PM Documents on File Type Date Recorded 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 Commissioner Expl anation Advance Directive(s) Advance Directive(s) 12/25/2021 4:07 PM Advance Directive(s) 12/16/2021 3:29 PM Advance Directive(s) 12/15/2021 1:10 AM Advance Directive(s) 06/10/2019 1:38 PM Advance Directive(s) 07/12/2009 2:12 PM Documents on File Type Date Recorded 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 Commissioner Expl anation Advance Directive(s) 07/12/2009 2:12 PM Documents on File Type Date Recorded 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 Commissioner Expl anation Advance Directive(s) 07/12/2009 2:12 PM Reason for Referral Status Reason Specialty Diagnoses / Procedures Referre d By Contact Referred To Contact Closed Renee Sierra, [facility] [address] [place] [phone] Status Reason Specialty Diagnoses / Procedures Referred By Contact Referred To Contact Authorized Service Not Available Internally Diagnoses Hypertension, unspecified type Right atrial enlargement Bilateral leg edema Procedures Home sleep test Renee Sierra [facility] [address] [place] [phone] OF SERVICE NOT IN SYSTEM Specialty Diagnoses / Procedures Referred By Contac t Referred To Contact Rehabilitation Diagnoses Valgus deformity of foot, right Metatarsus adductus of right foot Sofya Dale MD [address] [place] [address] [facility] [address] [place] [address] Referral ID Status Reason Start Date Expiration Date V isits Requested Visits Authorized [id number] Pending Review 10/20/2021 10/20/2022 1 1 Specialty Diagnoses / Procedures Referred By Contac t Referred To Contact Neurology Diagnoses Memory problem Liliya Lara MD [address] [address] Ed Redmond MD [address] [address] Referral ID Status Reason Start Date Expiration Date Visits Requested Visits Authorized [id number] Pending Review Specialty Services Required/Pat ient's Best Interest 11/03/2022 1 1 Specialty Diagnoses / Procedures Referred By Contac t Referred To Contact Radiology Diagnoses Encounter for screening mammogram for breast cancer Procedures Mammography Screening Emir Bilateral Liliya Lara MD [address] [address] [place] [address] Referral ID Status Reason Start Date Expiration Date V isits Requested Visits Authorized [id number] Authorized 01/13/2022 01/13/2023 1 1 Specialty Diagnoses / Procedures Referred By Contac t Referred To Contact Radiology Diagnoses Bilateral shoulder bursitis Osteoporosis, unspecified osteoporosis type, unspecified pathological fracture presence Procedures XR Bone Density DEXA Axial Liliya Lara MD [address] [place] [id number] [facility] [address] [place] [address] Referral ID Status Reason Start Date Expiration Date V isits Requested Visits Authorized [id number] Authorized 04/27/2022 04/27/2023 1 1 Specialty Diagnoses / Procedures Referred By Contac t Referred To Contact Behavioral Health Diagnoses Anxiety Liliya Lara MD [address] [address] Laura Galindo MSW LISW-S Referral ID Status Reason Start Date Expiration Date V isits Requested Visits Authorized [id number] Closed Specialty Services Required/Dayanna ent's Best Interest 05/25/2022 05/25/2023 1 1 Specialty Diagnoses / Procedures Referred By Contac t Referred To Contact Ethylene Plant Helper Diagnoses Financial difficulties Liliya Lara MD [address] [place] [address] Referral ID Status Reason Start Date Expiration Date Visits Requested Visits Authorized [id number] Pending Review Specialty Services Required/Pat ient's Best Interest 05/25/2022 05/25/2023 1 1 Specialty Diagnoses / Procedures Referred By Contac t Referred To Contact Behavorist (Outpatient Social Work) Diagnoses Anxiety Insomnia, unspecified type Liliya Lara MD [address] [place] [address] Laura Galindo MSW LISW-S Referral ID Status Reason Start Date Expiration Date V isits Requested Visits Authorized [id number] Closed Specialty Services Required/Dayanna ent's Best Interest 01/17/2023 01/17/2024 1 1 Specialty Diagnoses / Procedures Referred By Contact Referred To Contact Nurse Practitioner / Psychiatry Diagnoses Anxiety Bipolar disorder, most recent episode depressed (HCC) Liliya Lara MD [facility] [place] [address] Precious Argueta, PUNCH HAND [address] [place] [address] Referral ID Status Reason Start Date Expiration Date V isits Requested Visits Authorized [id number] Authorized 01/17/2023 01/17/2024 1 1 Specialty Diagnoses / Procedures Referred By Contac t Referred To Contact Liliya Lara MD [facility] [place] [address] Referral ID Status Reason Start Date Expiration Date Visits Re quested Visits Authorized [id number] Denied 1 1 Specialty Diagnoses / Procedures Referred By Contac t Referred To Contact Radiology Diagnoses Degeneration of lumbar intervertebral disc Procedures MR Lumbar Spine Without Contrast Liliya Lara MD [address] [place] [address] Referral ID Status Reason Start Date Expiration Date V isits Requested Visits Authorized [id number] New Request 06/22/2023 06/21/2024 1 1 Specialty Diagnoses / Procedures Referred By Contac t Referred To Contact Neurological Surgery / Neurosurgery Diagnoses Chronic low back pain, unspecified back pain laterality, unspecified whether sciatica present Liliya Lara MD [address] [address] Rigo Lundberg DO [address] [facility] [address] [place] [address] Referral ID Status Reason Start Date Expiration Date V isits Requested Visits Authorized [id number] Closed Specialty Services Required/Dayanna ent's Best Interest 08/01/2023 07/31/2024 1 1 Instructions * Patient Instructions* Renee Sierra, PUNCH HAND - 02/17/2021 2:31 PM EDT Problem List Items Addressed This Visit Cardiovascular and Mediastinum Migraine Relevant Medications vlpjkausev-mvucxmrqavvmb-lgzlbtfy (FIORICET, ESGIC) 50-325-40 mg per capsule Other Edema of lower extremity Reviewed your records and do not see any contraindication to wearing compression stockings. Reviewed your prior cardiology and vascular notes and they encouraged compression stockings. This would help considerably with your leg swelling through the day. Other Visit Diagnoses Hypertension, unspecified type - Primary Relevant Medications bumetanide (BUMEX) 2 MG tablet Other Relevant Orders Home sleep test Right atrial enlargement Relevant Medications bumetanide (BUMEX) 2 MG tablet Other Relevant Orders Home sleep test Bilateral leg edema Relevant Orders Home sleep test Acute combined systolic and diastolic congestive heart failure (HCC) Relevant Medications bumetanide (BUMEX) 2 MG tablet Hypokalemia Relevant Orders Basic Metabolic Panel (Completed) If any referrals were placed at the time of your visit please allow 2 weeks for processing. If you haven't heard from anyone within 2 weeks please contact my office so we can look into the status of your referral. If you were given any labs today please ensure they are completed according to the directions given. Once labs are completed please allow 1-2 weeks for us to receive the results, review them, and letyou know what steps, if any, are needed next. If you haven't heard from us after that please call to inquire. If labs were ordered to be done PRIOR to your next visit we will discuss the results at the time ofyour office visit. If any procedures or imaging studies were ordered that must be prior authorized please give us 2 weeks to get them approved. Once approved someone should call you to schedule them or give you a date and time that they were scheduled for. If you haven't heard anything within 2 weeks of the office visit please call the office so we can look into their status. Customer Service/Billing Questions: [phone] [employer] Assistance: [phone] or [phone] Financial Assistance: [phone] or [phone] documented in this encounter* Patient Instructions* Renee Sierra CNP - 01/12/2021 3:12 PM EST Problem List Items Addressed This Visit Cardiovascular and Mediastinum Migraine - Primary We will try Imitrex to take at the time of your headache, if this medication does not help please let me know. Relevant Medications traZODone (DESYREL) 100 MG tablet SUMAtriptan (Imitrex) 50 MG tablet Musculoskeletal and Integument Osteoporosis Make sure you are taking Calcium 600 mg daily and take the high dose Vitamin D weekly x 6 months and then transition to 4000 units daily OTC. Other Insomnia Increase your Trazodone to 200 mg nightly to see if this helps you sleep better. Relevant Medications traZODone (DESYREL) 100 MG tablet Other Visit Diagnoses Vitamin D deficiency If any referrals were placed at the time of your visit please allow 2 weeks for processing. If you haven't heard from anyone within 2 weeks please contact my office so we can look into the status of your referral. If you were given any labs today please ensure they are completed according to the directions given. Once labs are completed please allow 1-2 weeks for us to receive the results, review them, and letyou know what steps, if any, are needed next. If you haven't heard from us after that please call to inquire. If labs were ordered to be done PRIOR to your next visit we will discuss the results at the time ofyour office visit. If any procedures or imaging studies were ordered that must be prior authorized please give us 2 weeks to get them approved. Once approved someone should call you to schedule them or give you a date and time that they were scheduled for. If you haven't heard anything within 2 weeks of the office visit please call the office so we can look into their status. Customer Service/Billing Questions: [phone] MyChart Assistance: [phone] or [phone] Financial Assistance: [phone] or [phone] documented in this encounter* Patient Instructions* Renee Sierra CNP - 12/25/2020 3:01 PM EST Problem List Items Addressed This Visit Cardiovascular and Mediastinum Essential hypertension Relevant Medications lisinopriL (PRINIVIL,ZESTRIL) 2.5 MG tablet furosemide (LASIX) 20 MG tablet Other Relevant Orders CBC and Differential (Completed) Comprehensive Metabolic Panel (Completed) Other Hypercholesterolemia Relevant Medications atorvastatin (LIPITOR) 80 MG tablet Other Relevant Orders Comprehensive Metabolic Panel (Completed) Lipid Panel (Completed) TSH with Reflex Free T4 (Completed) Insomnia Stop the sleep aide and will do a follow apt in 2 weeks to make sure insomnia and issues are resolving. Other Visit Diagnoses Wellness examination - Primary Relevant Orders CBC and Differential (Completed) Comprehensive Metabolic Panel (Completed) Lipid Panel (Completed) TSH with Reflex Free T4 (Completed) Vitamin D deficiency Relevant Orders Vitamin D, Total, 25-OH (Completed) If any referrals were placed at the time of your visit please allow 2 weeks for processing. If you haven't heard from anyone within 2 weeks please contact my office so we can look into the status of your referral. If you were given any labs today please ensure they are completed according to the directions given. Once labs are completed please allow 1-2 weeks for us to receive the results, review them, and letyou know what steps, if any, are needed next. If you haven't heard from us after that please call to inquire. If labs were ordered to be done PRIOR to your next visit we will discuss the results at the time ofyour office visit. If any procedures or imaging studies were ordered that must be prior authorized please give us 2 weeks to get them approved. Once approved someone should call you to schedule them or give you a date and time that they were scheduled for. If you haven't heard anything within 2 weeks of the office visit please call the office so we can look into their status. Customer Service/Billing Questions: [phone] MyChart Assistance: [phone] or [phone] Financial Assistance: [phone] or [phone] documented in this encounter History of Present Illness * Renee Sierra CNP - 12/25/2020 2:25 PM EST Subjective Patient ID: Oniel Norman is a 60 y.o. female. Patient is here today to establish care, she is new to this provider and new to this practice. Sherlyn was previously followed by Dr. Walt Caban through [facility]. No prior records available at this time. Patient also states she would like to talk about increased swelling in her legs over the past few months. Migraines: Patient states that she has had migraines her entire life and will get 2-3 a year. She states she had prescriptions for Tylenol #3 to help with headaches. Angina: Patient states in the past she has used Percocet for chest pain/angina. She states she has unusual symptoms with her OK's and they have prescribed percocet in the past. She is on 30 mg of Imdur. This was prescribed through her prior PCP. CAD: Dr. Woo through [facility] is patients mill worker. She has followed this provider since 1999, she states she sees this specialist yearly. She states she has had 10 OK's with 10 cardiac caths. She states she had CABG x 4 in 2003 and has had 4 cardiac stents placed. Bipolar: Patient was diagnosed with Bipolar disorder 20+ years ago. She is currently on Lamictal 200 mg po daily, Trazodone 150 mg po daily, and Mirapex 0.5 mg daily. Insomnia: Patient states that she is having issues sleeping. She is currently on Trazodone 150 mg nightly to sleep and Mirapex 0.5 mg at night. Patient still could not sleep so she started taking Equate Sleep Aide 100 mg a night for the past 2+ years and still unable to sleep. Equate sleep aide is Diphenhydramine. The following were reviewed and updated as appropriate for today's visit: allergies, current medications, past family history, past medical history, past social history, past surgical history and problem list. Patient's Medications New Prescriptions No medications on file Previous Medications ASPIRIN-CALCIUM CARBONATE 81 MG-300 MG CALCIUM(777 MG) TAB Take 81 mg by mouth . ATORVASTATIN (LIPITOR) 80 MG TABLET Take 80 mg by mouth . DIPHENHYDRAMINE (BENADRYL) 25 MG TABLET Take 100 mg by mouth nightly . ISOSORBIDE MONONITRATE (IMDUR) 30 MG 24 HR TABLET Take by mouth . LAMOTRIGINE (LAMICTAL) 200 MG TABLET Take 200 mg by mouth daily . LISINOPRIL (PRINIVIL,ZESTRIL) 2.5 MG TABLET Take 2.5 mg by mouth daily . PANTOPRAZOLE (PROTONIX) 40 MG TABLET Take 40 mg by mouth daily . PRAMIPEXOLE (MIRAPEX) 0.5 MG TABLET Take 0.5 mg by mouth nightly . TRAZODONE (DESYREL) 100 MG TABLET Take 150 mg by mouth nightly . Modified Medications Modified Medication Previous Medication FUROSEMIDE (LASIX) 20 MG TABLET furosemide (LASIX) 20 MG tablet Take 1 (one) tablet (20 mg total) by mouth daily . Take 20 mg by mouth daily . Discontinued Medications ACETAMINOPHEN-CODEINE (TYLENOL #3) 300-30 MG PER TABLET Take 1 tablet by mouth every 6 (six) hours as needed . ARIPIPRAZOLE (ABILIFY) 2 MG TABLET Take 1 Unspecified by mouth daily . OXYCODONE-ACETAMINOPHEN (PERCOCET) 5-325 MG PER TABLET acetaminophen / oxyCODONE PERCOCET 5-325 MG TABS 1 tablet as needed OXYCODONE-ACETAMINOPHEN [id number] Walt Winterms HALEY 05-02-2018 [facility] ([id number]) TIZANIDINE (ZANAFLEX) 4 MG CAPSULE Take by mouth 3 (three) times a day . Review of Systems Review of Systems Constitutional: Negative for activity change and fatigue. HENT: Negative for hearing loss. Eyes: Negative for visual disturbance. Respiratory: Negative for cough, chest tightness, shortness of breath and wheezing. Cardiovascular: Positive for chest pain. Negative for palpitations. Musculoskeletal: Negative for gait problem. Skin: Negative. Neurological: Positive for headaches. Negative for dizziness, weakness and light-headedness. Psychiatric/Behavioral: Positive for dysphoric mood and sleep disturbance. Negative for agitation. The patient is nervous/anxious. Vitals: 12/25/20 1404 BP: 105/68 BP Location: Right arm Patient Position: Sitting BP Cuff Size: Adult Pulse: 65 Resp: 16 Temp: 98.2 F (36.8 C) TempSrc: Temporal SpO2: 95% Weight: 77.1 kg (169 lb 14.4 oz) Height: 5' 6 Body mass index is 27.42 kg/m . Physical Exam Physical Exam Constitutional: She is oriented to person, place, and time. She appears well- developed and well-nourished. HENT: Right Ear: External ear normal. Left Ear: External ear normal. Nose: Nose normal. Mouth/Throat: Oropharynx is clear and moist and mucous membranes are normal. Eyes: Conjunctivae, EOM and lids are normal. Neck: Normal range of motion. Cardiovascular: Normal rate, regular rhythm and normal heart sounds. No murmur heard. Pulmonary/Chest: Effort normal and breath sounds normal. Musculoskeletal: Comments: Normal gait Neurological: She is alert and oriented to person, place, and time. GCS eye subscore is 4. GCS verbal subscore is 5. GCS motor subscore is 6. Skin: Skin is warm and dry. Psychiatric: She has a normal mood and affect. Her speech is normal and behavior is normal. OARRS/NARxCHECK Report Received and Assessed: No data found Date controlled substance agreement signed: No data found Date of last drug screen: No data found Functional Assessment: No data found Assessment/Plan Problem List Items Addressed This Visit Cardiovascular and Mediastinum Essential hypertension Relevant Medications lisinopriL (PRINIVIL,ZESTRIL) 2.5 MG tablet furosemide (LASIX) 20 MG tablet Other Relevant Orders CBC and Differential (Completed) Comprehensive Metabolic Panel (Completed) Other Hypercholesterolemia Relevant Medications atorvastatin (LIPITOR) 80 MG tablet Other Relevant Orders Comprehensive Metabolic Panel (Completed) Lipid Panel (Completed) TSH with Reflex Free T4 (Completed) Insomnia Stop the sleep aide and will do a follow apt in 2 weeks to make sure insomnia and issues are resolving. Other Visit Diagnoses Wellness examination - Primary Relevant Orders CBC and Differential (Completed) Comprehensive Metabolic Panel (Completed) Lipid Panel (Completed) TSH with Reflex Free T4 (Completed) Vitamin D deficiency Relevant Orders Vitamin D, Total, 25-OH (Completed) For any new medications prescribed today, patient was educated about indications for the medication, how to take the medication and potential side effects of the medications. Renee Sierra CNP Depression Screening 12/25/2020 Little interest or pleasure in doing things 0 Feeling down, depressed, or hopeless 1 PHQ-2 Total Score 1 Trouble falling or staying asleep, or sleeping too much 1 Feeling tired or having little energy 1 Poor appetite or overeating 0 Feeling bad about yourself - or that you are a failure or have let yourself or your family down 0 Trouble concentrating on things, such as reading the newspaper or watching television 0 Moving or speaking so slowly that other people could have noticed. Or the opposite - being so fidgety or restless that you have been moving around a lot more than usual 0 Thoughts that you would be better off , or of hurting yourself in some way 0 PHQ-9 Total Score 3 If you checked off any problems, how difficult have these problems made it for you to do your work,take care of things at home, or get along with other people? Not difficult at all documented in this encounter* Renee Sierra CNP - 01/12/2021 3:09 PM EST Telephone Visit Via Phone Call [facility] [address] [facility] [address] [facility] [address] Telephone Visit [facility] 01/12/2021 Renee Sierra CNP Provider Location: [address] [place] [address] Patient Location Pigs Feet Cleaner: None Patient Location: Patient's Home Patient: Oniel Norman Date of : 1960 (60 y.o. female) PCP: Renee Sierra CNP I discussed risks, benefits and alternatives of a telephone visit telemedicine consultation with the patient (and any accompanying persons) including the risks that the patient's personal health details and medical records will be discussed over real-time, synchronous, interactive audio technology,the visit will not be recorded without the express consent of both the provider and the patient, and that there are inherent diagnostic limitations compared to [id number] evaluations. We elected toproceed with the telephone visit telemedicine consultation. Reviewed labwork with patient. Insomnia: Patient states that she is having issues sleeping. She is currently on Trazodone 150 mg nightly to sleep and Mirapex 0.5 mg at night. Patient still could not sleep so she started taking Equate Sleep Aide 100 mg a night for the past 2+ years and still unable to sleep. Equate sleep aide is Diphenhydramine. Patient stopped the sleep aide at her last visit two weeks ago and she states she has not noticed a change in her sleep habits. She states she has noticed that she is not as thirsty or dry through the day. She states she typically only sleeps 3-4 hours and then she is awake. She has only tried the sleep aide (benadryl) and melatonin in the past and neither was helping. Headaches: Patient states that she has had issues with migraines since her early 20's. She states over the years she has had full migraine workups including imaging on her head/brain and nothing was found. She states the pain starts in the back of her head or neck and goes up the top of her head and then behind her eyes. She states she has light and sound sensitivity with the headaches. She was previously on Tylenol #3 for headaches and has never been on a preventative medication or abortive medication in the past. The following portions of the patient's history were reviewed and updated as appropriate: allergies, current medications, past family history, past medical history, past social history, past surgicalhistory, and problem list. Review of Systems Constitutional: Negative for activity change and fatigue. HENT: Negative for hearing loss. Eyes: Negative for visual disturbance. Respiratory: Negative for cough, chest tightness, shortness of breath and wheezing. Cardiovascular: Positive for chest pain. Negative for palpitations. Musculoskeletal: Negative for gait problem. Skin: Negative. Neurological: Positive for headaches. Negative for dizziness, weakness and light-headedness. Psychiatric/Behavioral: Positive for dysphoric mood and sleep disturbance. Negative for agitation. The patient is nervous/anxious. Patient's Medications New Prescriptions ERGOCALCIFEROL (ERGOCALCIFEROL) 1,250 MCG (50,000 UNIT) CAPSULE Take 1 (one) capsule (50,000 Units total) by mouth once a week . SUMATRIPTAN (IMITREX) 50 MG TABLET Take 1 (one) tablet (50 mg total) by mouth every 2 (two) hours as needed for migraine Max of 200 mg in 24hrs . Previous Medications ASPIRIN-CALCIUM CARBONATE 81 MG-300 MG CALCIUM(777 MG) TAB Take 81 mg by mouth . ATORVASTATIN (LIPITOR) 80 MG TABLET Take 80 mg by mouth . FUROSEMIDE (LASIX) 20 MG TABLET Take 1 (one) tablet (20 mg total) by mouth daily . ISOSORBIDE MONONITRATE (IMDUR) 30 MG 24 HR TABLET Take by mouth . LAMOTRIGINE (LAMICTAL) 200 MG TABLET Take 200 mg by mouth daily . LISINOPRIL (PRINIVIL,ZESTRIL) 2.5 MG TABLET Take 2.5 mg by mouth daily . PANTOPRAZOLE (PROTONIX) 40 MG TABLET Take 40 mg by mouth daily . PRAMIPEXOLE (MIRAPEX) 0.5 MG TABLET Take 0.5 mg by mouth nightly . Modified Medications Modified Medication Previous Medication TRAZODONE (DESYREL) 100 MG TABLET traZODone (DESYREL) 100 MG tablet Take 2 (two) tablets (200 mg total) by mouth nightly . Take 150 mg by mouth nightly . Discontinued Medications DIPHENHYDRAMINE (BENADRYL) 25 MG TABLET Take 100 mg by mouth nightly . Assessment/Plan: Problem List Items Addressed This Visit Cardiovascular and Mediastinum Migraine - Primary We will try Imitrex to take at the time of your headache, if this medication does not help please let me know. Relevant Medications traZODone (DESYREL) 100 MG tablet SUMAtriptan (Imitrex) 50 MG tablet Musculoskeletal and Integument Osteoporosis Make sure you are taking Calcium 600 mg daily and take the high dose Vitamin D weekly x 6 months and then transition to 4000 units daily OTC. Relevant Medications ergocalciferol (ERGOCALCIFEROL) 1,250 mcg (50,000 unit) capsule Other Insomnia Increase your Trazodone to 200 mg nightly to see if this helps you sleep better. Relevant Medications traZODone (DESYREL) 100 MG tablet Other Visit Diagnoses Vitamin D deficiency Relevant Medications ergocalciferol (ERGOCALCIFEROL) 1,250 mcg (50,000 unit) capsule I have spent 15 minutes with the patient reviewing the HPI and Plan of Care. documented in this encounter* Renee Sierra CNP - 02/17/2021 2:03 PM EDT Subjective Patient ID: Oniel Norman is a 60 y.o. female. Patient is here today for a routine interval visit. Leg edema: Patient was changed from Lasix to Bumex 01/23/2021, she is currently on Bumex 2 mg daily.She states it has helped with swelling but she feels like her legs still swell by the end of the day. 07/2017 patient was seen by vascular, notes in care everywhere. Diagnosed with venous insufficiency, at that time recommended she use compression stockings. Patient was under the impression she wasnot to wear compression stockings but unable to find this in previous records. Last cardiology apt 06/2018. Patient states she has been having issues with cramps in her upper legs and calves, she states since starting potassium supplement 01/29/2021 they have improved slightly. CORNELIO: Patient was diagnosed with CORNELIO in 2014, sleep study was done in 2014. She did not agree to a CPAP machine at that time because she did not like a full mask on her face, it made her feel claustrophobic. She is willing to repeat the study if she is able to use nasal pillows or nasal mask. Explained how this affects her heart function, leg edema, and insomnia. [place] 3 Echocardiogram 02/05/2021: Summary 1. Mildly enlarged left ventricular chamber. Normal wall thickness. Normal systolic function with no regional wall motion abnormalities with an estimated ejection fraction of 60-65%. 2. Right ventricular chamber dimension is normal. Right ventricular systolic function is normal. 3. Right atrial chamber dimension is enlarged. 4. No hemodynamically significant valvular disease. 5. There is no pulmonary hypertension, estimated right ventricle systolic pressure is 22 mmHg. Insomnia: Patient increased dose to 200 mg nightly to help with insomnia and sleep, she states the increase in dose has helped. Migraines: Patient was trialed on Imitrex for headaches after last visit, she states she used this medication for multiple migraines and it did not help with the migraine at all. She is requesting different type of medication. The following were reviewed and updated as appropriate for today's visit: allergies, current medications, past family history, past medical history, past social history, past surgical history and problem list. Patient's Medications New Prescriptions [id number]-[id number]-[id number] (FIORICET, ESGIC) 50-325-40 MG PER CAPSULE Take 1 (one) capsule by mouth every 4 (four) hours as needed for pain or headaches . Previous Medications ARIPIPRAZOLE (ABILIFY) 2 MG TABLET Take 1 Unspecified by mouth daily . ASPIRIN-CALCIUM CARBONATE 81 MG-300 MG CALCIUM(777 MG) TAB Take 81 mg by mouth . ATORVASTATIN (LIPITOR) 80 MG TABLET Take 80 mg by mouth . ERGOCALCIFEROL (ERGOCALCIFEROL) 1,250 MCG (50,000 UNIT) CAPSULE Take 1 (one) capsule (50,000 Units total) by mouth once a week . ISOSORBIDE MONONITRATE (IMDUR) 30 MG 24 HR TABLET Take by mouth . LAMOTRIGINE (LAMICTAL) 200 MG TABLET Take 200 mg by mouth daily . LISINOPRIL (PRINIVIL,ZESTRIL) 2.5 MG TABLET Take 1.25 mg by mouth daily . PANTOPRAZOLE (PROTONIX) 40 MG TABLET Take 40 mg by mouth daily . POTASSIUM CHLORIDE 10 MEQ CR TABLET Take 1 (one) tablet (10 mEq total) by mouth daily . PRAMIPEXOLE (MIRAPEX) 0.5 MG TABLET Take 0.5 mg by mouth nightly . TRAZODONE (DESYREL) 100 MG TABLET Take 2 (two) tablets (200 mg total) by mouth nightly . Modified Medications Modified Medication Previous Medication BUMETANIDE (BUMEX) 2 MG TABLET bumetanide (BUMEX) 2 MG tablet Take 1 (one) tablet (2 mg total) by mouth daily . Take 1 (one) tablet (2 mg total) by mouth daily . Discontinued Medications FUROSEMIDE (LASIX) 20 MG TABLET Take 1 (one) tablet (20 mg total) by mouth daily . SUMATRIPTAN (IMITREX) 50 MG TABLET Take 1 (one) tablet (50 mg total) by mouth every 2 (two) hours as needed for migraine Max of 200 mg in 24hrs . Review of Systems Review of Systems Constitutional: Positive for unexpected weight change. Negative for activity change, chills, diaphoresis, fatigue and fever. HENT: Negative for congestion, hearing loss and sinus pain. Eyes: Negative for redness and visual disturbance. Respiratory: Negative for cough, chest tightness, shortness of breath and wheezing. Cardiovascular: Positive for leg swelling. Negative for chest pain and palpitations. Gastrointestinal: Negative for diarrhea, nausea and vomiting. Endocrine: Negative for polydipsia. Genitourinary: Negative for frequency and hematuria. Musculoskeletal: Negative for back pain and gait problem. Skin: Negative. Neurological: Negative for dizziness, weakness, light-headedness and headaches. Psychiatric/Behavioral: Positive for dysphoric mood and sleep disturbance. Negative for agitation and confusion. The patient is nervous/anxious. Vitals: 02/17/21 1314 BP: 116/66 BP Location: Right arm Patient Position: Sitting BP Cuff Size: Adult Pulse: 62 Resp: 16 Temp: 98.3 F (36.8 C) TempSrc: Temporal SpO2: 97% Weight: 76.6 kg (168 lb 14.4 oz) Height: 5' 6 Body mass index is 27.26 kg/m . Physical Exam Physical Exam Constitutional: She is oriented to person, place, and time. She appears well- developed and well-nourished. HENT: Right Ear: External ear normal. Left Ear: External ear normal. Nose: Nose normal. Mouth/Throat: Oropharynx is clear and moist and mucous membranes are normal. Eyes: Conjunctivae, EOM and lids are normal. Neck: Normal range of motion. Cardiovascular: Normal rate, regular rhythm and normal heart sounds. No murmur heard. Non pitting edema noted to bilateral lower extremities. Pulmonary/Chest: Effort normal and breath sounds normal. Musculoskeletal: Comments: Normal gait Neurological: She is alert and oriented to person, place, and time. GCS eye subscore is 4. GCS verbal subscore is 5. GCS motor subscore is 6. Skin: Skin is warm and dry. Psychiatric: She has a normal mood and affect. Her speech is normal and behavior is normal. OARRS/NARxCHECK Report Received and Assessed: No data found Date controlled substance agreement signed: No data found Date of last drug screen: No data found Functional Assessment: No data found Assessment/Plan Problem List Items Addressed This Visit Cardiovascular and Mediastinum Migraine Relevant Medications clrhgfmfpu-wlsgvltyuiudn-yskpdvqh (FIORICET, ESGIC) 50-325-40 mg per capsule Other Edema of lower extremity Reviewed your records and do not see any contraindication to wearing compression stockings. Reviewed your prior cardiology and vascular notes and they encouraged compression stockings. This would help considerably with your leg swelling through the day. Other Visit Diagnoses Hypertension, unspecified type - Primary Relevant Medications bumetanide (BUMEX) 2 MG tablet Other Relevant Orders Home sleep test Right atrial enlargement Relevant Medications bumetanide (BUMEX) 2 MG tablet Other Relevant Orders Home sleep test Bilateral leg edema Relevant Orders Home sleep test Acute combined systolic and diastolic congestive heart failure (HCC) Relevant Medications bumetanide (BUMEX) 2 MG tablet Hypokalemia Relevant Orders Basic Metabolic Panel (Completed) For any new medications prescribed today, patient was educated about indications for the medication, how to take the medication and potential side effects of the medications. Renee Sierra CNP documented in this encounter Assessments Diagnosis Wellness examination- Primary Essential hypertension Unspecified essential hypertension Hypercholesterolemia Pure hypercholesterolemia Vitamin D deficiency Insomnia, unspecified type Diagnosis Migraine with aura and without status migrainosus, not intractable- Primary Osteoporosis, unspecified osteoporosis type, unspecified pathological fracture presence Insomnia, unspecified type Vitamin D deficiency Diagnosis Migraine with aura and without status migrainosus, not intractable Diagnosis Hypertension, unspecified type- Primary Right atrial enlargement Bilateral leg edema Edema Migraine with status migrainosus, not intractable, unspecified migraine type Acute combined systolic and diastolic congestive heart failure (HCC) Hypokalemia Hypopotassemia Edema of lower extremity Health Concerns Problem Noted Date Diagnosed Date POST PROCEDURE PAIN DIARY - THERAPEUTIC NERVE BL OCK - G2 09/19/2023 Problem Noted Date Diagnosed Date POST PROCEDURE PAIN DIARY - THERAPEUTIC NERVE BL OCK - G2 09/19/2023 Problem Noted Date Diagnosed Date POST PROCEDURE PAIN DIARY - THERAPEUTIC NERVE BL OCK - G2 09/19/2023 Additional Source Comments INFORMATION SOURCE (unrecogn ized section and content) DATE CREATED AUTHOR AUTHOR'S ORGANIZ ATION 01/26/2019 [facility] DATE CREATED AUTHOR AUTHOR'S ORGANIZ ATION 07/13/2019 [facility] DATE CREATED AUTHOR AUTHOR'S ORGANIZ ATION 02/26/2020 [facility] DATE CREATED AUTHOR AUTHOR'S ORGANIZ ATION 02/16/2021 [facility] DATE CREATED AUTHOR AUTHOR'S ORGANIZ ATION 02/16/2022 [facility] DATE CREATED AUTHOR AUTHOR'S ORGANIZ ATION 02/27/2023 [facility] DATE CREATED AUTHOR AUTHOR'S ORGANIZ ATION 03/17/2023 [facility] DATE CREATED AUTHOR AUTHOR'S ORGANIZ ATION 05/28/2023 [facility] DATE CREATED AUTHOR AUTHOR'S ORGANIZ ATION 06/24/2023 [facility] DATE CREATED AUTHOR AUTHOR'S ORGANIZ ATION 08/02/2023 [facility] DATE CREATED AUTHOR AUTHOR'S ORGANIZ ATION 09/02/2023 [facility] DATE CREATED AUTHOR AUTHOR'S ORGANIZ ATION 09/18/2023 [facility] DATE CREATED AUTHOR AUTHOR'S ORGANIZ ATION 11/15/2023 [facility] DATE CREATED AUTHOR AUTHOR'S ORGANIZ ATION 11/28/[address] [facility] Reason for Visit (unrecogniz ed section and content) Reason Onset Date Comments Medication Refill 02/06/2021 Reason Comments Follow-up 2 week fu leg swelli ng weight gain Reason Comments Physical Therapy Specialty Diagnoses / Procedures Referred By Miriam t Referred To Contact Rehabilitation Diagnoses Valgus deformity of foot, right Metatarsus adductus of right foot Sofya Dale MD [address] [place] [address] [address] [address] [address] [place] [address] Referral ID Status Reason Start Date Expiration Date V isits Requested Visits Authorized [id number] Authorized 10/20/2021 10/20/2022 1 199 Reason Comments Other Cortisone shot Reason Onset Date Comments Medication Refill 11/16/2021 Reason Comments Migraine Dizziness pain in back Reason Onset Date Comments Medication Refill 12/20/2021 Reason Onset Date Comments PA INITIATED-UBRELVY 12/22/2021 Reason Comments Rash On left wrist had he art cath yesterday Reason Comments Follow-up Reason Comments Gynecologic Exam Reason Comments Immunizations COVID VACCINE-3RD Reason Comments Follow-up 5 week f/u- Pt wants to have her ears checked. Reason Onset Date Comments Care Coordination - [facility] 05/25/2022 Reason Comments Anxiety Reason Comments Follow-up 4 week fu, left shou lder pain, wants to discuss shoulder injection Reason Onset Date Comments Medication Refill 06/28/2022 Reason Comments Follow-up 3 month f/u Reason Onset Date Comments Medication Refill 08/09/2022 Reason Comments Cardiology Follow Up Coronary atheroscle rosis Reason Comments Card Clearance Form Reason Comments Follow-up 8 week fu CC Reason Comments RCVD EXT LABS VIA FAX Reason Comments CARD Follow Up 3 Month Cardiac Clearance Left hip surgery Dr Galvan 11/04/22 Reason Onset Date Comments Medication Refill 01/17/2023 Reason Comments Insomnia Reason Onset Date Comments Care Coordination - [facility] 02/17/2023 Reason Onset Date Comments PA denial- Ketorolac 02/23/2023 Reason Comments Transition Of Care Follow up - FALL Reason Comments Cardiology Follow Up CAD, CHF Reason Comments Pre-op Exam Surgery on 05/06/23 Reason Comments Back Pain Back pain. Patient h ad back surgery last week. Patient states pain is getting worse. Pain medications not working. Reason Comments Follow-up 6 week f/u on chroni c conditions Gap Closure (Health Maintenance) Pap Sme ar Never doneMammogram due on 02/26/2017COVID-19 Vaccine(4 - Pfizer series) due on 04/20/2022 Reason Comments Follow-up 6 mon fu Reason Comments imaging report Reason Comments Preparations For Procedures Reason Comments Injections Specialty Diagnoses / Procedures Referred By Miriam quiñonez Referred To Contact Spine Health / SPINE Diagnoses Dx: Sacroiliitis (HCC) [M46.1 (ICD-10-CM)] Procedures Intra-articular Sacroiliac joint injection: Bilateral CPT 03156 Tommy Brennan MD [address] [place] [address] [facility] [address] [place] [address] Referral ID Status Reason Start Date Expiration Date Visits Re quested Visits Authorized [id number] Closed 09/06/2023 11/13/2023 1 1 Reason Comments Preparations For Procedures Recheck Reason Comments Medication Question Reason Comments Radio Main J1 Specialty Diagnoses / Procedures Referred By Contac t Referred To Contact XR IMAGING Diagnoses Sacroiliitis (HCC) Procedures XR SACRUM/COCCYX 3V AP/LAT RADEX SACRUM & COCCYX MINIMUM 2 VIEWS Walt Carrion APRN.[facility] [address] [place] [address] [place] [address] Referral ID Status Reason Start Date Expiration Date V isits Requested Visits Authorized [id number] Closed Auto-Generate d Referral 10/24/2023 11/22/2024 1 1 Reason Comments Established Patient Assessment & Plan Note - Renee Sierra CNP - 12/25/2020 3:00 PM ESTAssessment & Plan Note - Renee Sierra CNP - 01/12/2021 3:30 PM EST Miscellaneous Notes (unrecog nized section and content) Associated Problem(s): Insomnia Stop the sleep aide and will do a follow apt in 2 weeks to make sure insomnia and issues are resolving. documented in this encounter Associated Problem(s): Migraine We will try Imitrex to take at the time of your headache, if this medication does not help please let me know. Associated Problem(s): Insomnia Increase your Trazodone to 200 mg nightly to see if this helps you sleep better. Associated Problem(s): Osteoporosis Make sure you are taking Calcium 600 mg daily and take the high dose Vitamin D weekly x 6 months and then transition to 4000 units daily OTC. documented in this encounter RECEIVED FAX FROM PHARMACY. REQUESTING REFILL ON QUEUED MEDICATION(S). LAST OV:01/23/2021 NEXT OV:02/17/2021 documented in this encounter Associated Problem(s): Edema of lower extremity Reviewed your records and do not see any contraindication to wearing compression stockings. Reviewed your prior cardiology and vascular notes and they encouraged compression stockings. This would help considerably with your leg swelling through the day. documented in this encounter Care Teams (unrecognized sec tion and content) Air Brake Rigger Relationship Specialty Start Date End Date Liliya Lara MD [address] [id number] PCP - General Internal Medicine 08/05/21 Air Brake Rigger Relationship Specialty Start Date End Date Liliya Lara MD [address] [place] [address] PCP - General Internal Medicine 08/05/21 Air Brake Rigger Relationship Specialty Start Date End Date Liilya Lara MD [address] [id number] PCP - General Internal Medicine 08/05/21 Air Brake Rigger Relationship Specialty Start Date End Date Liliya Lara MD [address] [id number] PCP - General Internal Medicine 08/05/21 Air Brake Rigger Relationship Specialty Start Date End Date Liliya Lara MD [address] [address] PCP - General Internal Medicine 08/05/21 Air Brake Rigger Relationship Specialty Start Date End Date Liliya Lara MD [address] [address] PCP - General Internal Medicine 08/05/21 Air Brake Rigger Relationship Specialty Start Date End Date Liliya Lara MD [address] [id number] PCP - General Internal Medicine 08/05/21 Air Brake Rigger Relationship Specialty Start Date End Date Liliya Lara MD [address] [address] PCP - General Internal Medicine 08/05/21 Air Brake Rigger Relationship Specialty Start Date End Date Liliya Lara MD [facility] [address] [address] PCP - General Internal Medicine 08/05/21 Air Brake Rigger Relationship Specialty Start Date End Date Liliya Lara MD [address] [place], [place] [id number] PCP - General Internal Medicine 08/05/21 Air Brake Rigger Relationship Specialty Start Date End Date Liliya Lara MD [facility] [address] [address] PCP - General Internal Medicine 08/05/21 Air Brake Rigger Relationship Specialty Start Date End Date Liliya Lara MD [facility] [place] [id number] PCP - General Internal Medicine 08/05/21 Air Brake Rigger Relationship Specialty [place] [address] [place] [address] PCP - General Internal Medicine 08/05/21 Air Brake Rigger Relationship Specialty Start Date End Date Liliya Lara MD [facility] [address] [address] PCP - General Internal Medicine 08/05/21 Air Brake Rigger Relationship Specialty Start Date End Date Liliya Lara MD [address] [id number] PCP - General Internal Medicine 08/05/21 Air Brake Rigger Relationship Specialty Start Date End Date [place], Renee [place] [address] PCP - General Family Practice 07/01/21 Nagi Wagner MD [address] [place] [address] Primary Staff Physician Cardiology 12/25/21 Air Brake Rigger Relationship Specialty Start Date End Date Liliya Lara MD [address] [id number] PCP - General Internal Medicine 08/05/21 Air Brake Rigger Relationship Specialty Start Date End Date Liliya Lara MD [address] [id number] PCP - General Internal Medicine 08/05/21 Air Brake Rigger Relationship Specialty Start Date End Date Liliya Lara MD [address] [id number] PCP - General Internal Medicine 08/05/21 Air Brake Rigger Relationship Specialty Start Date End Date Liliya Lara MD [address] [id number] PCP - General Internal Medicine 08/05/21 Air Brake Rigger Relationship Specialty Start Date End Date Liliya Lara MD [address] [id number] PCP - General Internal Medicine 08/05/21 Air Brake Rigger Relationship Specialty Start Date End Date Liliya Lara MD [address] [id number] PCP - General Internal Medicine 08/05/21 Air Brake Rigger Relationship Specialty Start Date End Date Liliya Lara MD [address] [id number] PCP - General Internal Medicine 08/05/21 Air Brake Rigger Relationship Specialty Start Date End [place] [address] PCP - General Family Medicine 07/01/21 Nagi Wagner MD [address] [place] [address] Primary Staff Physician Cardiology 12/25/21 Air Brake Rigger Relationship Specialty Start Date End Date [place], Renee [address] [place] [id number] PCP - General Family Medicine 07/01/21 Naig Wagner MD [address] [place] [address] Primary Staff Physician Cardiology 12/25/21 Air Brake Rigger Relationship Specialty Start Date End Date Liliya Lara MD [address] [id number] PCP - General Internal Medicine 08/05/21 Air Brake Rigger Relationship Specialty Start Date End Date Liliya Lara MD [address] [id number] PCP - General Internal Medicine 11/03/22 Nagi Wagner MD [address] [place] [address] Primary Staff Physician Cardiology 12/25/21 Air Brake Rigger Relationship Specialty Start Date End Date Liliya Lara MD [address] [place] [address] PCP - General Internal Medicine 11/03/22 Nagi Wagner MD [address] [id number] Primary Staff Physician Cardiology 12/25/21 Air Brake Rigger Relationship Specialty Start Date End Date Liliya Lara MD [address] [id number] PCP - General Internal Medicine 08/05/21 Air Brake Rigger Relationship Specialty Start Date End Date Liliya Lara MD [facility] [address] [id number] PCP - General Internal Medicine 08/05/21 Air Brake Rigger Relationship Specialty Start Date End Date Liliya Lara MD [address] [place], [place] [id number] PCP - General Internal Medicine 08/05/21 Air Brake Rigger Relationship Specialty Start Date End Date Liliya Lara MD [address] [place], [place] [id number] PCP - General Internal Medicine 08/05/21 Air Brake Rigger Relationship Specialty Start Date End Date Liliya Lara MD [address] [place], [place] [id number] PCP - General Internal Medicine 08/05/21 Air Brake Rigger Relationship Specialty Start Date End Date Liliya Lara MD [address] [place], [place] [id number] PCP - General Internal Medicine 11/03/22 Nagi Wagner MD [address] [id number] Primary Staff Physician Cardiology 12/25/21 Air Brake Rigger Relationship Specialty Start Date End Date Liliya Lara MD [address] [place] [address] PCP - General Internal Medicine 08/05/21 Sophie Andino, [facility] Education ProfessionalSolderer Dipper 05/06/23 Air Brake Rigger Relationship Specialty Start Date End Date Liliya Lara MD [address] [place] [address] PCP - General Internal Medicine 08/05/21 Sophie Andino, [facility] Education ProfessionalSolderer Dipper 05/06/23 Air Brake Rigger Relationship Specialty Start Date End Date Liliya Lara MD [address] [place] [address] PCP - General Internal Medicine 08/05/21 Sophie Andino, [facility] Education ProfessionalSolderer Dipper 05/06/23 Air Brake Rigger Relationship Specialty Start Date End Date Liliya Lara MD [address] [place] [address] PCP - General Internal Medicine 08/05/21 Sophie Andino, [facility] Education ProfessionalSolderer Dipper 05/06/23 Air Brake Rigger Relationship Specialty Start Date End Date Liliya Lara MD [address] [place] [address] PCP - General Internal Medicine 08/05/21 Sophie Andino, [facility] Education ProfessionalSolderer Dipper 05/06/23 Air Brake Rigger Relationship Specialty Start Date End Date Liliya Lara MD [address] [place], [place] [id number] PCP - General Internal Medicine 11/03/22 Nagi Wagner MD [address] [place] [address] Primary Staff Physician Cardiology 12/25/21 Air Brake Rigger Relationship Specialty Start Date End Date Sophie Andino MSW TRANSPORTATION SPECIALIST Education ProfessionalSolderer Dipper 05/06/23 08/12/23 Air Brake Rigger Relationship Specialty Start Date End Date Liliya Lara MD [address] [id number] PCP - General Internal Medicine 11/03/22 Nagi Wagner MD [address] [place] [address] Primary Staff Physician Cardiology 12/25/21 Air Brake Rigger Relationship Specialty Start Date End Date Liliya Lara MD [address] [id number] PCP - General Internal Medicine 11/03/22 Nagi Wagner MD [address] [place] [address] Primary Staff Physician Cardiology 12/25/21 Air Brake Rigger Relationship Specialty Start Date End Date Liliya Lara MD [address] [id number] PCP - General Internal Medicine 11/03/22 Nagi Wagner MD [address] [place] [address] Primary Staff Physician Cardiology 12/25/21 Air Brake Rigger Relationship Specialty Start Date End Date Liliya Lara MD [address] [place] [id number] PCP - General Internal Medicine 11/03/22 Nagi Wagner MD [address] [place], [place] [id number] Primary Staff Physician Cardiology 12/25/21 Air Brake Rigger Relationship Specialty Start Date End Date Liliya Lara MD [facility] [place] [id number] PCP - General Internal Medicine 11/03/22 Nagi Wagner MD [address] [place], [place] [id number] Primary Staff Physician Cardiology 12/25/21 Air Brake Rigger Relationship Specialty Start Date End Date Liliya Lara MD [address] [facility] [place] [id number] PCP - General Internal Medicine 11/03/22 Nagi Wagner MD [address] [place], [place] [id number] Primary Staff Physician Cardiology 12/25/21 Air Brake Rigger Relationship Specialty Start Date End Date Malvin Johnson DO [address] [place] [address] PCP - General Family Medicine 10/24/23 Nagi Wagner MD [address] [place] [address] Primary Staff Physician Cardiology 12/25/21 Air Brake Rigger Relationship Specialty Start Date End Date Malvin Johnson DO [address] [place] [address] PCP - General Family Medicine 10/24/23 Nagi Wagner MD [address] [place] [address] Primary Staff Physician Cardiology 12/25/21 Source Comments (unrecognize d section and content) In the event this informatio n is protected by the Federal Confidentiality of Alcohol and Drug Abuse Patient Records regulations: The Federal rules restrict any use of the information to criminally investigate or prosecute any alcohol or drug abuse patient.[facility] CenterIn the event this information is protected by the Federal Confidentiality of Alcohol and Drug Abuse Patient Records regulations: The Federal rules restrict any use of the information to criminally investigate or prosecute any alcohol or drug abuse patient.[facility] CenterIn the event this information is protected by the Federal Confidentiality of Alcohol and Drug Abuse Patient Records regulations: The Federal rules restrict any use of the information to criminally investigate or prosecute any alcohol or drug abuse patient.[facility] CenterIn the event this information is protected by the Federal Confidentiality of Alcohol and Drug Abuse Patient Records regulations: The Federal rules restrict any use of the information to criminally investigate or prosecute any alcohol or drug abuse patient.[facility] CenterIn the event this information is protected by the Federal Confidentiality of Alcohol and Drug Abuse Patient Records regulations: The Federal rules restrict any use of the information to criminally investigate or prosecute any alcohol or drug abuse patient.[facility] CenterIn the event this information is protected by the Federal Confidentiality of Alcohol and Drug Abuse Patient Records regulations: The Federal rules restrict any use of the information to criminally investigate or prosecute any alcohol or drug abuse patient.[facility] CenterIn the event this information is protected by the Federal Confidentiality of Alcohol and Drug Abuse Patient Records regulations: The Federal rules restrict any use of the information to criminally investigate or prosecute any alcohol or drug abuse patient.[facility] CenterIn the event this information is protected by the Federal Confidentiality of Alcohol and Drug Abuse Patient Records regulations: The Federal rules restrict any use of the information to criminally investigate or prosecute any alcohol or drug abuse patient.[facility] CenterIn the event this information is protected by the Federal Confidentiality of Alcohol and Drug Abuse Patient Records regulations: The Federal rules restrict any use of the information to criminally investigate or prosecute any alcohol or drug abuse patient.[facility] CenterIn the event this information is protected by the Federal Confidentiality of Alcohol and Drug Abuse Patient Records regulations: The Federal rules restrict any use of the information to criminally investigate or prosecute any alcohol or drug abuse patient.[facility] CenterIn the event this information is protected by the Federal Confidentiality of Alcohol and Drug Abuse Patient Records regulations: The Federal rules restrict any use of the information to criminally investigate or prosecute any alcohol or drug abuse patient.[facility] CenterIn the event this information is protected by the Federal Confidentiality of Alcohol and Drug Abuse Patient Records regulations: The Federal rules restrict any use of the information to criminally investigate or prosecute any alcohol or drug abuse patient.[facility] CenterIn the event this information is protected by the Federal Confidentiality of Alcohol and Drug Abuse Patient Records regulations: The Federal rules restrict any use of the information to criminally investigate or prosecute any alcohol or drug abuse patient.[facility] CenterIn the event this information is protected by the Federal Confidentiality of Alcohol and Drug Abuse Patient Records regulations: The Federal rules restrict any use of the information to criminally investigate or prosecute any alcohol or drug abuse patient.[facility] CenterIn the event this information is protected by the Federal Confidentiality of Alcohol and Drug Abuse Patient Records regulations: The Federal rules restrict any use of the information to criminally investigate or prosecute any alcohol or drug abuse patient.[facility] CenterIn the event this information is protected by the Federal Confidentiality of Alcohol and Drug Abuse Patient Records regulations: The Federal rules restrict any use of the information to criminally investigate or prosecute any alcohol or drug abuse patient.[facility] <item><item><item><item> Privacy Markings (unrecogniz ed section and content) Section Author: Daysi Sanderson PROHIBITION ON REDISCLOSURE OF CONFIDENTIAL INFORMATION This notice accompanies a disclosure of information concerning a client made to you with the consent of such client. Section Author: Daysi Sanderson PROHIBITION ON REDISCLOSURE OF CONFIDENTIAL INFORMATION This notice accompanies a disclosure of information concerning a client made to you with the consent of such client. Section Author: Daysi Sanderson PROHIBITION ON REDISCLOSURE OF CONFIDENTIAL INFORMATION This notice accompanies a disclosure of information concerning a client made to you with the consent of such client. Section Author: Daysi Sanderson PROHIBITION ON REDISCLOSURE OF CONFIDENTIAL INFORMATION This notice accompanies a disclosure of information concerning a client made to you with the consent of such client. Scheduled Active and Recently Administ ered Medications (unrecognized section and content) FOR RECORDS PERTAINING TO PATIENTS WHO ARE OR HAVE BEEN ENROLLED IN A CHEMICAL DEPENDENCY/SUBSTANCEABUSE PROGRAM, SOME INFORMATION MAY BE OMITTED. This clinical summary was aggregated from multiple sources. Caution should be exercised in using it in the provision of clinical care. This summary normalizes information from multiple sources, and as a consequence, information in this document may materially change the coding, format and clinical context of patient data. In addition, data may be omitted in some cases. CLINICAL DECISIONS SHOULD BE BASED ON THE PRIMARY CLINICAL RECORDS. [employer] [facility]. provides no warranty or guarantee of the accuracy or completeness of information in this document.
[2023-12-23 17:29] LABS: Absolute Lymphocyte Count 2.08 X10^3/uL (0.83-4.51); Absolute Neutrophil Count 4.5 X10^3/uL (2.0-7.7); Basophil# 0.03 X10^3/uL; Basophil% 0.4 % (0-1); Eosinophils% 2.6 % (0-5); Hematocrit 42.9 % (37-47); Hemoglobin 13.3 g/dL (12.0-15.0); Lymphocyte # 2.08 X10^3/ul (0.83-4.51); Lymphocyte % 27.4 % (19-41); Mean Corpuscular Hgb 28.4 pg (27.0-32.0); Mean Corpuscular Volume 91.7 fL (81-99); Mean Platelet Vol. 12.7 fl (6.2-12.0); Monocyte# 0.78 X10^3/uL; Monocyte% 10.3 % (0-10); NRBC Flagged by Analyzer 0 % (0-5); Neutrophil # 4.47 X10^3/uL (2.7-7.7); Neutrophil % 58.9 % (47-70); Platelet Count 209 K/mm3 (150-450); RBC Distribution Width CV 14.6 % (11.6-14.6); RBC Distribution Width SD 48.6 fl (35.1-43.9); Red Blood Count 4.68 M/mm3 (4.2-5.4); White Blood Count 7.6 K/mm3 (4.4-11.0)
[2023-12-23 17:48] LABS: Erythrocyte Sedimentation Rate 7 mm/hr (0-30)
[2023-12-23 17:50] LABS: CRP 5.66 mg/L (0.0-3.0)
== END | disposition home or self-care (01) ==
LOC: MTLAB 14:38
PROVIDERS: PCP Family Medicine; Referring Provider Orthopaedic Surgery Orthopaedic Surgery of the Spine; Visit Provider Orthopaedic Surgery Orthopaedic Surgery of the Spine
DX: M54.50 Low back pain, unspecified (principal); Z98.1 Arthrodesis status
CPT/HCPCS: 36415; 85025; 85652; 86140

== ENCOUNTER → 2024-01-05 | Outpatient (CLI) | payer MEDICARE, SELFPAY ==
--- NOTE | 2024-01-05 13:40 | MRI_ITS ---
HISTORY: pain -- ruling out infection. TECHNIQUE: Multiplanar and multisequence MR images of the lumbar spine were obtained before and after the intravenous administration of 17 mL Clariscan. 195 images. COMPARISON: CT 12/22/2023. MRI 06/22/2023. FINDINGS: VERTEBRAE: Progression of degenerative endplate changes of T12-L1. Chronic moderate L3 compression fracture with mild retropulsion into the spinal canal. Artifact from L1-4 posterior spinal fusion hardware. ALIGNMENT: No anterior or posterior subluxation. SPINAL CANAL: Normal morphology and position of the conus medullaris at the lower T12 level. No epidural collection or enhancing intradural extramedullary mass. INTERVERTEBRAL DISCS: T12-L1: No significant fluid signal or enhancement of the disc to suggest acute discitis. Increased mild disc bulge with facet arthropathy resulting in minimal narrowing of the thecal sac and bilateral foramina. L1-2: Minimal disc bulge with facet arthropathy resulting in minimal narrowing of the thecal sac and mild bilateral foraminal narrowing, similar to prior. L2-3: Mild disc bulge and facet arthropathy superimposed on the chronic retropulsed L3 compression fracture resulting in mild central canal stenosis and bilateral foraminal narrowing, similar to prior. L3-4: No significant posterior disc protrusion, central canal stenosis, or foraminal narrowing. Facet arthropathy. L4-5: Mild posterior disc bulge osteophyte complex with facet arthropathy resulting in minimal narrowing of the thecal sac and moderate bilateral foraminal narrowing, similar to prior. L5-S1: Mild posterior disc bulge osteophyte complex with facet arthropathy resulting in no significant central canal stenosis and mild-moderate bilateral foraminal narrowing, similar to prior. SOFT TISSUES: Posterior subcutaneous and intramuscular edema with a septated 1.1 x 2 cm left posterior intramuscular fluid collection at the L3 level, 2.9 x 4.2 cm on prior MRI. MRI/Spine Lumbar W/WO Contrast IMPRESSION: L1-4 posterior spinal fusion with small left posterior intramuscular fluid collection, decreased in size from prior. Progression of degenerative disc disease and endplate change above the level of fusion at T12-L1. Moderate chronic L3 compression fracture. Mild multilevel degenerative disc disease as above. Electronically Signed: Chelsie Sidhu MD at 12:34 EST ,
--- OUTSIDE RECORDS SUMMARY | 2024-01-05 13:56 | XMS RPT_ITS | CCD ---
Author Name Unknown Address [address] [place] [address] Organization [facility] Care Team Providers Care Moth Exterminator Name Role Phone PROVIDER, UNKNOWN Unavailable Unavailable [...] Unavailable Unavailable Distel, Albina M Unavailable Unavailable Vaery, Ashely E Unavailable Unavailable Oberhauser, Walt L Unavailable Unavailable Distel, Albina M Unavailable Unavailable Unavailable Liliya Lara MD Primary Care Provider Ashely Avery MD Unavailable Unavailable Avery, Ashely [...] Primary Care Provider Nagi Wagner MD Unavailable [facility] Renee Alberts Primary Care Provider Nagi Wagner [...] Care Unavailable ERIN OHARA Attending Unavail able JANE, LILIYA Attending Unavailable JANE, LILIYA Referring Unavailable JANE, LILIYA Primary Care Unavailable JANE, LILIYA Attending Unavailable JANE, LILIYA Referring Unavailable JANE, LILIYA Primary Care Unavailable JANE, LILIYA Attending Unavailable JANE, LILIYA Referring Unavailable JANE, LILIYA Primary Care Unavailable Jane Liliya ISAACS Primary Care Provider Unavailable Primary Care Provider Unavailwilliams KENNEY, KENNEDY Consulting Unavailable Andino SENIOR HEALTH EDUCATOR TEXTILE KNITTER, Sophie M Unavailable Unavailabl e Jane, Liliya Unavailable Joya Ryan Unavailable Unavailable Ashely Gleason Unavailable Unavailable Mancesarhio, Ms. Lund Attending [...] CELESTIN Attending Unavailable Nagi Wagner MD Unavailable [phone] Thu SENIOR HEALTH EDUCATOR TEXTILE KNITTERSophie Unavailable Unavailabl e PROVIDER, UNKNOWN Referring Unavailable JANE, LILIYA Primary Care Unavailable KENNEDY KENNEY Unavailable Malvin Johnson DO Primary Care Provider [phone] EFRA BUCK Attending Unavailable JANE, LILIYA Primary [...] B; Translations: [Neosporin LT OINT] Drug Allergy [facility] Work Phone: Iodine (and Iodine containting drugs) (2 sources) Iodine; Translations: [iodine] Drug Allergy [facility] Work Phone: Penicillins (antibiotic) (2 sources) Penicillins; Translations: [Penicillins] Drug Allergy [facility] Work Phone: (3 sources) Bacitracin / Neomycin / Polymyxin B Drug Allergy [facility] Work Phone: (20 sources) Iodine; Translations: [IODINE] Drug Allergy 3 Anaphylaxis [facility] Work Phone: (20 sources) Penicillins; Translations: [Penicillins] Allergy to drug (finding) 2 Rash [facility] Work Phone: (20 sources) Adhesive agent; Translations: [ADHESIVE] Propensity to adverse reactions to drug 7 Itching, Rash [facility] (20 sources) Gramicidin / Neomycin / Polymyxin B; Translations: [NEOMYCIN-POLYM YXIN-GRAMICIDIN ] Drug Allergy 6 [facility] (20 sources) Neomycin-Bacitr acin-Polymyxin; Translations: [NEOMYCIN-BACIT RACIN-POLYMYXIN ] Propensity to adverse reactions to drug 9 Rash, Itching [facility] (20 sources) Penicillins Propensity to adverse reactions to drug 2 Other: See Comments [facility] (20 sources) Iodine And Iodide Containing Products; Translations: [IODINE AND IODIDE CONTAINING PRODUCTS] Propensity to adverse reactions to drug Unknown [facility] (4 sources) Contrast media Rash, Itching, Other [facility] (20 sources) Ct: Iodinated Contrast- Oral And Iv Dye; Translations: [CT: IODINATED CONTRAST- ORAL AND IV DYE] Propensity to adverse reactions to drug 2 Unknown, Rash [facility] Work Phone: (20 sources) Penicillins Propensity to adverse reactions to drug 2 Other: See Comments [facility] (2 sources) Penicillins Propensity to adverse reactions 3 [facility] Medications Current Medications Medication Drug Class(es) Dates [...] 160 cm Walt Carrion APRN.CNP Work Phone: [facility] 10-24-2023 10:32-0500 Body weight 89.22 kg Walt Carrion APRN.CNP Work Phone: [facility] 10-24-2023 10:32-0500 Diastolic blood pressure 67 mm[Hg] Walt Carrion APRN.CNP Work Phone: [facility] 10-24-2023 10:32-0500 Heart rate 57 /min Walt Carrion APRN.EDUCATIONAL COORDINATOR Work Phone: [facility] 10-24-2023 10:32-0500 Respiratory rate 18 /min Walt Carrion APRN.CNP Work Phone: [facility] 10-24-2023 10:32-0500 Systolic blood pressure 112 mm[Hg] Walt Carrion APRN.CNP Work Phone: [facility] 09-26-2023 14:27-0500 Body temperature 97.9 [degF] [facility] Work Phone: [facility] 09-26-2023 14:27-0500 Diastolic blood pressure 60 mm[Hg] [facility] Work Phone: [facility] 09-26-2023 14:27-0500 Heart rate 52 /min [facility] Work Phone: [facility] 09-26-2023 14:27-0500 Respiratory rate 18 /min [facility] Work Phone: [facility] 09-26-2023 14:27-0500 SaO2% (BldA) [Mass fraction] 98 % [facility] Work Phone: [facility] 09-26-2023 14:27-0500 Systolic blood pressure 114 mm[Hg] [facility] Work Phone: [facility] 09-19-2023 13:21-0500 Body temperature 98.71 [degF] [facility] Work Phone: [facility] 09-19-2023 13:21-0500 Diastolic blood pressure 59 mm[Hg] [facility] Work Phone: [facility] 09-19-2023 13:21-0500 Heart rate 57 /min [facility] Work Phone: [facility] 09-19-2023 13:21-0500 Respiratory rate 18 /min [facility] Work Phone: [facility] 09-19-2023 13:21-0500 Systolic blood pressure 108 mm[Hg] [facility] Work Phone: [facility] 08-01-2023 09:49-0400 Body height 160.7 cm Liliya Lara MD Work Phone: [facility] 08-01-2023 09:49-0400 Body temperature 98.49 [degF] Liliya Lara MD Work Phone: [facility] 08-01-2023 09:49-0400 Diastolic blood pressure 68 mm[Hg] Liliya Lara MD Work Phone: [facility] 08-01-2023 09:49-0400 Heart rate 49 /min Liliya Lara MD Work Phone: [facility] 08-01-2023 09:49-0400 Respiratory rate 16 /min Liliya Lara MD Work Phone: [facility] 08-01-2023 09:49-0400 SaO2% (BldA) [Mass fraction] 95 % Liliya Lara MD Work Phone: [facility] 08-01-2023 09:49-0400 Systolic blood pressure 130 mm[Hg] Liliya Lara MD Work Phone: [facility] 06-22-2023 23:11-0400 Diastolic blood pressure 90 mm[Hg] Liliya Lara [facility] 06-22-2023 23:11-0400 Heart rate 58 /min Liliya Jane [facility] 06-22-2023 23:11-0400 Respiratory rate 16 /min Liliya Jane [facility] 06-22-2023 23:11-0400 SaO2% (BldA) [Mass fraction] 97 % Liliya Jane [facility] 06-22-2023 23:11-0400 Systolic blood pressure 107 mm[Hg] Liliya Jane [facility] 06-22-2023 15:03-0400 Body height 160 cm Liliya Jane [facility] 06-22-2023 15:03-0400 Body temperature 97.88 [degF] Liliya Jane [facility] 06-22-2023 15:03-0400 Body weight 84.5 kg Liliya Jane [facility] 06-21-2023 19:51-0400 Body height 160 cm Liliya Jane [facility] 06-21-2023 19:51-0400 Body temperature 98.06 [degF] Liliya Jane [facility] 06-21-2023 19:51-0400 Body weight 84 kg Liliya Jane [facility] 06-21-2023 19:51-0400 Diastolic blood pressure 85 mm[Hg] Liliya Jane [facility] 06-21-2023 19:51-0400 Heart rate 58 /min Liliya Lara [facility] 06-21-2023 19:51-0400 Respiratory rate 18 /min Liliya Lara [facility] 06-21-2023 19:51-0400 SaO2% (BldA) [Mass fraction] 98 % Liliya Lara [facility] 06-21-2023 19:51-0400 Systolic blood pressure 154 mm[Hg] Liliya Lara [facility] 06-21-2023 16:54-0400 Body height 160.7 cm Liliya Lara MD Work Phone: [facility] 06-21-2023 16:54-0400 Body temperature 98.01 [degF] Liliya Lara MD Work Phone: [facility] 06-21-2023 16:54-0400 Diastolic blood pressure 75 mm[Hg] Liliya Lara MD Work Phone: [facility] 06-21-2023 16:54-0400 Heart rate 56 /min Liliya Lara MD Work Phone: [facility] 06-21-2023 16:54-0400 Respiratory rate 16 /min Liliya Lara MD Work Phone: [facility] 06-21-2023 16:54-0400 SaO2% (BldA) [Mass fraction] 97 % Liliya Lara MD Work Phone: [facility] 06-21-2023 16:54-0400 Systolic blood pressure 137 mm[Hg] Liliya Lara MD Work Phone: [facility] 05-16-2023 18:09-0400 Body temperature 98.49 [degF] [facility] 05-16-2023 18:09-0400 Diastolic blood pressure 55 mm[Hg] [facility] 05-16-2023 18:09-0400 Heart rate 60 /min [facility] 05-16-2023 18:09-0400 Respiratory rate 17 /min [facility] 05-16-2023 18:09-0400 SaO2% (BldA) [Mass fraction] 99 % [facility] 05-16-2023 18:09-0400 Systolic blood pressure 118 mm[Hg] [facility] 05-04-2023 18:44-0400 Body height 167.6 cm Liliya Lara MD Work Phone: [facility] 05-04-2023 18:44-0400 Body mass index (BMI) [Ratio] 30.34 kg/m2 Liliya Lara MD Work Phone: [facility] 05-04-2023 18:44-0400 Body temperature 98.2 [degF] Liliya Lara MD Work Phone: [facility] 05-04-2023 18:44-0400 Body weight 85.28 kg Liliya Lara MD Work Phone: [facility] 05-04-2023 18:44-0400 Diastolic blood pressure 66 mm[Hg] Liliya Lara MD Work Phone: [facility] 05-04-2023 18:44-0400 Heart rate 97 /min Liliya Lara MD Work Phone: [facility] 05-04-2023 18:44-0400 Respiratory rate 16 /min Liliya Lara MD Work Phone: [facility] 05-04-2023 18:44-0400 SaO2% (BldA) [Mass fraction] 98 % Liliya Lara MD Work Phone: [facility] 05-04-2023 18:44-0400 Systolic blood pressure 96 mm[Hg] Liliya Lara MD Work Phone: [facility] 04-28-2023 09:36-0400 Body height 167.6 cm Efra Buck APRN.EDUCATIONAL COORDINATOR Work Phone: [facility] 04-28-2023 09:36-0400 Body weight 85.28 kg Efra Buck APRN.EDUCATIONAL COORDINATOR Work Phone: [facility] 04-28-2023 09:36-0400 Diastolic blood pressure 62 mm[Hg] Efra Buck FRONT OFFICE SECRETARY.EDUCATIONAL COORDINATOR Work Phone: [facility] 04-28-2023 09:36-0400 Heart rate 53 /min Efra Buck FRONT OFFICE SECRETARY.EDUCATIONAL COORDINATOR Work Phone: [facility] 04-28-2023 09:36-0400 Respiratory rate 18 /min Efra Buck FRONT OFFICE SECRETARY.EDUCATIONAL COORDINATOR Work Phone: [facility] 04-28-2023 09:36-0400 SaO2% (BldA) [Mass fraction] 98 % Efra Buck FRONT OFFICE SECRETARY.EDUCATIONAL COORDINATOR Work Phone: [facility] 04-28-2023 09:36-0400 Systolic blood pressure 128 mm[Hg] Efra Buck FRONT OFFICE SECRETARY.EDUCATIONAL COORDINATOR Work Phone: [facility] 02-23-2023 07:35-0400 Body height 167.6 cm Liliya Lara MD Work Phone: [facility] 02-23-2023 07:35-0400 Body temperature 98.4 [degF] Liliya Lara MD Work Phone: [facility] 02-23-2023 07:35-0400 Diastolic blood pressure 82 mm[Hg] Liliya Lara MD Work Phone: [facility] 02-23-2023 07:35-0400 Heart rate 58 /min Liliya Lara MD Work Phone: [facility] 02-23-2023 07:35-0400 Respiratory rate 16 /min Liliya Lara MD Work Phone: [facility] 02-23-2023 07:35-0400 SaO2% (BldA) [Mass fraction] 94 % Liliya Lara MD Work Phone: [facility] 02-23-2023 07:35-0400 Systolic blood pressure 124 mm[Hg] Liliya Lara MD Work Phone: [facility] 02-14-2023 23:12-0400 Diastolic blood pressure 72 mm[Hg] Albina Etienne Other Phone: [facility] 02-14-2023 23:12-0400 Heart rate 54 /min Albina Distel Other Phone: [facility] 02-14-2023 23:12-0400 Respiratory rate 18 /min Albina Distel Other Phone: [facility] 02-14-2023 23:12-0400 SaO2% (BldA) [Mass fraction] 98 % Albina Distel Other Phone: [facility] 02-14-2023 23:12-0400 Systolic blood pressure 146 mm[Hg] Albina Distel Other Phone: [facility] 02-14-2023 20:13-0400 Body height 167.6 cm Albina Distel Other Phone: [facility] 02-14-2023 20:13-0400 Body temperature 97.88 [degF] Albina Distel Other Phone: [facility] 02-14-2023 20:13-0400 Body weight 81.8 kg Albina Distel Other Phone: [facility] 01-17-2023 18:18-0500 Body height 167.6 cm Liliya Lara MD Work Phone: [facility] 01-17-2023 18:18-0500 Body mass index (BMI) [Ratio] 29.05 kg/m2 Liliya Lara MD Work Phone: [facility] 01-17-2023 18:18-0500 Body temperature 98.01 [degF] Liliya Lara MD Work Phone: [facility] 01-17-2023 18:18-0500 Body weight 81.65 kg Liliya Lara MD Work Phone: [facility] 01-17-2023 18:18-0500 Diastolic blood pressure 79 mm[Hg] Liliya Lara MD Work Phone: [facility] 01-17-2023 18:18-0500 Heart rate 63 /min Liliya Lara MD Work Phone: [facility] 01-17-2023 18:18-0500 Respiratory rate 16 /min Liliya Lara MD Work Phone: [facility] 01-17-2023 18:18-0500 SaO2% (BldA) [Mass fraction] 99 % Liliya Lara MD Work Phone: [facility] 01-17-2023 18:18-0500 Systolic blood pressure 139 mm[Hg] Liliya Lara MD Work Phone: [facility] 11-03-2022 09:29-0500 Body height 167.6 cm Guevara Espino MD Work Phone: [facility] 11-03-2022 09:29-0500 Body weight 80.29 kg Guevara Espino MD Work Phone: [facility] 11-03-2022 09:29-0500 Diastolic blood pressure 78 mm[Hg] Guevara Espino MD Work Phone: [facility] 11-03-2022 09:29-0500 Heart rate 69 /min Guevara Espino MD Work Phone: [facility] 11-03-2022 09:29-0500 Respiratory rate 18 /min Guevara Espino MD Work Phone: [facility] 11-03-2022 09:29-0500 SaO2% (BldA) [Mass fraction] 98 % Guevara Espino MD Work Phone: [facility] 11-03-2022 09:29-0500 Systolic blood pressure 122 mm[Hg] Guevara Espino MD Work Phone: [facility] 10-26-2022 10:28-0500 Body height 167.6 cm Liliya Lara MD Work Phone: [facility] 10-26-2022 10:28-0500 Body mass index (BMI) [Ratio] 27.44 kg/m2 Liliya Lara MD Work Phone: [facility] 10-26-2022 10:28-0500 Body temperature 98.4 [degF] Liliya Lara MD Work Phone: [facility] 10-26-2022 10:28-0500 Body weight 77.11 kg Liliya Lara MD Work Phone: [facility] 10-26-2022 10:28-0500 Diastolic blood pressure 80 mm[Hg] Liliya Lara MD Work Phone: [facility] 10-26-2022 10:28-0500 Heart rate 64 /min Liliya Lara MD Work Phone: [facility] 10-26-2022 10:28-0500 Respiratory rate 16 /min Liliya Lara MD Work Phone: [facility] 10-26-2022 10:28-0500 SaO2% (BldA) [Mass fraction] 98 % Liliya Lara MD Work Phone: [facility] 10-26-2022 10:28-0500 Systolic blood pressure 119 mm[Hg] Liliya Lara MD Work Phone: [facility] 08-12-2022 10:02-0400 Body height 167.6 cm Guevara Espino MD Work Phone: [facility] 08-12-2022 10:02-0400 Body weight 79.38 kg Guevara Espino MD Work Phone: [facility] 08-12-2022 10:02-0400 Diastolic blood pressure 76 mm[Hg] Guevara Espino MD Work Phone: [facility] 08-12-2022 10:02-0400 Heart rate 57 /min Guevara Espino MD Work Phone: [facility] 08-12-2022 10:02-0400 SaO2% (BldA) [Mass fraction] 97 % Guevara Espino MD Work Phone: [facility] 08-12-2022 10:02-0400 Systolic blood pressure 113 mm[Hg] Guevara Espino MD Work Phone: [facility] 07-21-2022 16:43-0400 Body height 167.6 cm Liliya Lara MD Work Phone: [facility] 07-21-2022 16:43-0400 Body mass index (BMI) [Ratio] 27.44 kg/m2 Liliya Lara MD Work Phone: [facility] 07-21-2022 16:43-0400 Body temperature 97.39 [degF] Liliya Lara MD Work Phone: [facility] 07-21-2022 16:43-0400 Body weight 77.11 kg Liliya Lara MD Work Phone: [facility] 07-21-2022 16:43-0400 Diastolic blood pressure 73 mm[Hg] Liliya Lara MD Work Phone: [facility] 07-21-2022 16:43-0400 Heart rate 60 /min Liliya Lara MD Work Phone: [facility] 07-21-2022 16:43-0400 Respiratory rate 16 /min Liliya Lara MD Work Phone: [facility] 07-21-2022 16:43-0400 SaO2% (BldA) [Mass fraction] 97 % Liliya Lara MD Work Phone: [facility] 07-21-2022 16:43-0400 Systolic blood pressure 114 mm[Hg] Liliya Lara MD Work Phone: [facility] 05-25-2022 06:49-0400 Body height 167.6 cm Liliya Lara MD Work Phone: [facility] 05-25-2022 06:49-0400 Body mass index (BMI) [Ratio] 26.63 kg/m2 Liliya Lara MD Work Phone: [facility] 05-25-2022 06:49-0400 Body temperature 98.2 [degF] Liliya Lara MD Work Phone: [facility] 05-25-2022 06:49-0400 Body weight 74.84 kg Liliya Lara MD Work Phone: [facility] 05-25-2022 06:49-0400 Diastolic blood pressure 81 mm[Hg] Liliya Lara MD Work Phone: [facility] 05-25-2022 06:49-0400 Heart rate 58 /min Liliya Lara MD Work Phone: [facility] 05-25-2022 06:49-0400 Respiratory rate 16 /min Liliya Lara MD Work Phone: [facility] 05-25-2022 06:49-0400 SaO2% (BldA) [Mass fraction] 96 % Liliya Lara MD Work Phone: [facility] 05-25-2022 06:49-0400 Systolic blood pressure 129 mm[Hg] Liliya Lara MD Work Phone: [facility] 04-20-2022 16:08-0400 Body height 167.6 cm Liliya Lara MD Work Phone: [facility] 04-20-2022 16:08-0400 Body mass index (BMI) [Ratio] 27.44 kg/m2 Liliya Lara MD Work Phone: [facility] 04-20-2022 16:08-0400 Body temperature 97 [degF] Liliya Lara MD Work Phone: [facility] 04-20-2022 16:08-0400 Body weight 77.11 kg Liliya Lara MD Work Phone: [facility] 04-20-2022 16:08-0400 Diastolic blood pressure 65 mm[Hg] Liliya Lara MD Work Phone: [facility] 04-20-2022 16:08-0400 Heart rate 47 /min Liliya Lara MD Work Phone: [facility] 04-20-2022 16:08-0400 Respiratory rate 16 /min Liliya Lara MD Work Phone: [facility] 04-20-2022 16:08-0400 SaO2% (BldA) [Mass fraction] 96 % Liliya Lara MD Work Phone: [facility] 04-20-2022 16:08-0400 Systolic blood pressure 112 mm[Hg] Liliya Lara MD Work Phone: [facility] 04-10-2022 22:08-0400 Diastolic blood pressure 80 mm[Hg] Albina Distel Other Phone: [facility] 04-10-2022 22:08-0400 Heart rate 87 /min Albina Distel Other Phone: [facility] 04-10-2022 22:08-0400 Respiratory rate 16 /min Albina Distel Other Phone: [facility] 04-10-2022 22:08-0400 SaO2% (BldA) [Mass fraction] 98 % Albina Distel Other Phone: [facility] 04-10-2022 22:08-0400 Systolic blood pressure 120 mm[Hg] Albina Distel Other Phone: [facility] 04-10-2022 20:59-0400 Body height 167.6 cm Albina Distel Other Phone: [facility] 04-10-2022 20:59-0400 Body temperature 97.16 [degF] Albina Distel Other Phone: [facility] 04-10-2022 20:59-0400 Body weight 76.4 kg Albina Distel Other Phone: [facility] 02-23-2022 08:58-0400 Body temperature 98.01 [degF] Sai Celestin RN [facility] 01-19-2022 15:48-0500 Body height 167.6 cm Liliya Lara MD Work Phone: [facility] 01-19-2022 15:48-0500 Body mass index (BMI) [Ratio] 27.6 kg/m2 Liliya Lara MD Work Phone: [facility] 01-19-2022 15:48-0500 Body temperature 98.2 [degF] Liliya Lara MD Work Phone: [facility] 01-19-2022 15:48-0500 Body weight 77.56 kg Liliya Lara MD Work Phone: [facility] 01-19-2022 15:48-0500 Diastolic blood pressure 71 mm[Hg] Liliya Lara MD Work Phone: [facility] 01-19-2022 15:48-0500 Heart rate 57 /min Liliya Lara MD Work Phone: [facility] 01-19-2022 15:48-0500 Respiratory rate 16 /min Liliya Lara MD Work Phone: [facility] 01-19-2022 15:48-0500 SaO2% (BldA) [Mass fraction] 97 % Liliya Lara MD Work Phone: [facility] 01-19-2022 15:48-0500 Systolic blood pressure 109 mm[Hg] Liliya Lara MD Work Phone: [facility] 01-13-2022 09:48-0500 Body height 167.6 cm Liliya Lara MD Work Phone: [facility] 01-13-2022 09:48-0500 Body mass index (BMI) [Ratio] 27.92 kg/m2 Liliya Lara MD Work Phone: [facility] 01-13-2022 09:48-0500 Body temperature 97.59 [degF] Liliya Lara MD Work Phone: [facility] 01-13-2022 09:48-0500 Body weight 78.47 kg Liliya Lara MD Work Phone: [facility] 01-13-2022 09:48-0500 Diastolic blood pressure 75 mm[Hg] Liliya Lara MD Work Phone: [facility] 01-13-2022 09:48-0500 Heart rate 56 /min Liliya Lara MD Work Phone: [facility] 01-13-2022 09:48-0500 Respiratory rate 16 /min Liliya Lara MD Work Phone: [facility] 01-13-2022 09:48-0500 SaO2% (BldA) [Mass fraction] 97 % Liliya Lara MD Work Phone: [facility] 01-13-2022 09:48-0500 Systolic blood pressure 112 mm[Hg] Liliya Lara MD Work Phone: [facility] 12-29-2021 15:51-0500 Body height 167.6 cm Liliya Lara MD Work Phone: [facility] 12-29-2021 15:51-0500 Body mass index (BMI) [Ratio] 27.44 kg/m2 Liliya Lara MD Work Phone: [facility] 12-29-2021 15:51-0500 Body temperature 98.1 [degF] Liliya Lara MD Work Phone: [facility] 12-29-2021 15:51-0500 Body weight 77.11 kg Liliya Lara MD Work Phone: [facility] 12-29-2021 15:51-0500 Diastolic blood pressure 69 mm[Hg] Liliya aLra MD Work Phone: [facility] 12-29-2021 15:51-0500 Heart rate 50 /min Liliya Lara MD Work Phone: [facility] 12-29-2021 15:51-0500 Respiratory rate 16 /min Liliya Lara MD Work Phone: [facility] 12-29-2021 15:51-0500 SaO2% (BldA) [Mass fraction] 98 % Liliya Lara MD Work Phone: [facility] 12-29-2021 15:51-0500 Systolic blood pressure 107 mm[Hg] Liliya Lara MD Work Phone: [facility] 12-15-2021 18:24-0500 Body height 167.6 cm Liliya Lara MD Work Phone: [facility] 12-15-2021 18:24-0500 Body mass index (BMI) [Ratio] 27.63 kg/m2 Liliya Lara MD Work Phone: [facility] 12-15-2021 18:24-0500 Body temperature 97.59 [degF] Liliya Lara MD Work Phone: [facility] 12-15-2021 18:24-0500 Body weight 77.66 kg Liliya Lara MD Work Phone: [facility] 12-15-2021 18:24-0500 Diastolic blood pressure 82 mm[Hg] Liliya Lara MD Work Phone: [facility] 12-15-2021 18:24-0500 Heart rate 63 /min Liliya Lara MD Work Phone: [facility] 12-15-2021 18:24-0500 Respiratory rate 18 /min Liliya Lara MD Work Phone: [facility] 12-15-2021 18:24-0500 SaO2% (BldA) [Mass fraction] 96 % Liliya Lara MD Work Phone: [facility] 12-15-2021 18:24-0500 Systolic blood pressure 130 mm[Hg] Liliya Lara MD Work Phone: [facility] 11-03-2021 15:18-0500 Body height 167.6 cm Liliya Lara MD Work Phone: [facility] 11-03-2021 15:18-0500 Body mass index (BMI) [Ratio] 26.79 kg/m2 Liliya Lara MD Work Phone: [facility] 11-03-2021 15:18-0500 Body temperature 98.4 [degF] Liliya Lara MD Work Phone: [facility] 11-03-2021 15:18-0500 Body weight 75.3 kg Liliya Lara MD Work Phone: [facility] 11-03-2021 15:18-0500 Diastolic blood pressure 60 mm[Hg] Liliya Lara MD Work Phone: [facility] 11-03-2021 15:18-0500 Heart rate 61 /min Liliya Lara MD Work Phone: [facility] 11-03-2021 15:18-0500 Respiratory rate 16 /min Liliya Lara MD Work Phone: [facility] 11-03-2021 15:18-0500 SaO2% (BldA) [Mass fraction] 96 % Liliya Lara MD Work Phone: [facility] 11-03-2021 15:18-0500 Systolic blood pressure 95 mm[Hg] Liliya Lara MD Work Phone: [facility] 02-17-2021 13:14-0400 BMI (Body Mass Index) 27.26 kg/m2 [facility] 02-17-2021 13:14-0400 Body Temperature 98.29 [degF] [facility] 02-17-2021 13:14-0400 Body weight 76.61 kg [facility] 02-17-2021 13:14-0400 BP Diastolic 66 mm[Hg] [facility] 02-17-2021 13:14-0400 BP Systolic 116 mm[Hg] [facility] 02-17-2021 13:14-0400 Height 167.6 cm [facility] 02-17-2021 13:14-0400 Pulse (Heart Rate) 62 /min [facility] 02-17-2021 13:14-0400 Pulse Oximetry 97 % [facility] 02-17-2021 13:14-0400 Respiratory Rate 16 /min [facility] 12-25-2020 14:04-0500 BMI (Body Mass Index) 27.42 kg/m2 [facility] 12-25-2020 14:04-0500 Body Temperature 98.2 [degF] [facility] 12-25-2020 14:04-0500 Body weight 77.07 kg [facility] 12-25-2020 14:04-0500 BP Diastolic 68 mm[Hg] [facility] 12-25-2020 14:04-0500 BP Systolic 105 mm[Hg] [facility] 12-25-2020 14:04-0500 Height 167.6 cm [facility] 12-25-2020 14:04-0500 Pulse (Heart Rate) 65 /min [facility] 12-25-2020 14:04-0500 Pulse Oximetry 95 % [facility] 12-25-2020 14:04-0500 Respiratory Rate 16 /min [facility] 01-03-2020 16:49-0500 BMI (Body Mass Index) 25.66 kg/m2 Ashely Avery [facility] Work Phone: 01-03-2020 16:49-0500 Body weight 72.12 kg Ashely Avery [facility] Work Phone: 01-03-2020 16:49-0500 BP Diastolic 66 mm[Hg] Ashely Avery [facility] Work Phone: 01-03-2020 16:49-0500 BP Systolic 116 mm[Hg] Ashely Avery [facility] Work Phone: 01-03-2020 16:49-0500 BSA (Body Surface Area) 1.81 m2 Ashely Avery [facility] Work Phone: 01-03-2020 16:49-0500 Height 167.64 cm Ashely Avery [facility] Work Phone: Encounters Encounter Date Encounter Type Care Provider Facility Start: 11-21-2023 End: 11-21-2023 ambulatory WALT CARRION Facility:[facility] Start: 11-09-2023 ambulatory NORMA NARAYANAN Facility :[facility] Start: 10-24-2023 End: 10-25-2023 ambulatory WALT CARRION Facility:[facility] Start: 10-24-2023 End: 10-24-2023 Subsequent hospital visit by physician Analy Main J1-4 Work Phone: Radiology Procedures Date Procedure Procedure Detail Performing Clinician Start: 10-24-2023 Radex sacrum & coccyx minimum 2 views Walt Carrion FRONT OFFICE SECRETARY.EDUCATIONAL COORDINATOR Work Phone: Start: 05-16-2023 Basic metabolic panel [...] Work Phone: Start: 02-01-2013 Mammography JA Mohr APRN.EDUCATIONAL COORDINATOR Work Phone: Start: 07-29-2009 H/O: artificial joint Knee joint replacement NA Onur RYAN EDUCATIONAL COORDINATOR Work Phone: Start: 07-29-2009 History of operative procedure on knee Status post knee replacement Sofya Dale MD Work Phone: Appendectomy Ashely Avery History of CABG Ashely olmos Plan of Treatment Date Care Activity Detail Author Start: 07-06-2028 DTaP/Tdap/Td Vaccine s (2 - Td or Tdap) DTaP/Tdap/Td Vaccines (2 - Td or Tdap) [facility] Start: 07-06-2028 Tetanus vaccination Tetanus: Every 1 0yrs [facility] Start: 07-06-2028 Urine microalbumin profile DTa P,Tdap,Td Vaccine (2 - Td or Tdap) [facility] Start: 10-24-2026 Diabetes Screening Diabetes Screenin g [facility] Start: 06-22-2026 Diabetes Screening Diabetes Screenin g [facility] Start: 02-03-2026 DIABETES SCREEN DIABETES SCREEN [facility] Start: 01-13-2026 Screening for malign ant neoplasm of colon [facility] Immunizations Immunization Date Immunization Notes Care Provider Analy murphy 09-15-2023 Influenza, injectabl e, Madin Chelsie Canine Kidney, preservative free, quadrivalent Xr J1-4 Work Phone: [facility] 01-17-2023 Pneumococcal Conjuga te 20-Valent (Prevnar 20) Valery Bradford LPN [facility] 01-17-2023 pneumococcal conj. 20-valent (PREVNAR 20) 0.5 mL vaccine Liliya Lara MD Work Phone: [facility] 04-20-2022 zoster vaccine recombinant Liliya Lara MD Work Phone: [facility] 04-20-2022 varicella-zoster gE, diluent + powder, (SHINGRIX KIT) 50 mcg/0.5 mL injection Liliya Lara MD Work Phone: [facility] 02-23-2022 Pfizer 12+ Years rosamaria-sucrose COVID-19 vaccine Sai Celestin RN [facility] 02-23-2022 COVID-19 vac, rosamaria,Pfizer,,PF, (PFIZER COV-19 VACC, 12 YR UP,) injection (burgos cap) Sai Celestin RN [facility] 01-13-2022 zoster vaccine recombinant Liliya Lara MD Work Phone: [facility] 01-13-2022 varicella-zoster gE, diluent + powder, (SHINGRIX KIT) 50 mcg/0.5 mL injection Liliya Lara MD Work Phone: [facility] 09-25-2021 Seasonal, quadrivale nt, recombinant, injectable influenza vaccine, preservative free Liliya Lara MD Work Phone: [facility] 09-25-2021 Seasonal, trivalent, recombinant, injectable influenza vaccine, preservative free Liliya Lara MD Work Phone: [facility] 09-25-2021 influenza virus vacc ine, unspecified formulation [facility] 01-02-2021 Pfizer SARS-CoV-2 Vaccination Gabbi Kearns [facility] 12-07-2020 Pfizer SARS-CoV-2 Vaccination Gabbi Kearns [facility] 08-19-2020 influenza, injectabl e, quadrivalent, preservative free; Translations: [Influenza, injectable, quadrivalent, preservative free] Gabbi Kearns [facility] Payers Date Payer Category Payer Medicare [id number] 2021 Medicare UHC AAR MEDICAR E [facility] MEDICARE PPO [id number] 2021-Present [phone] [address] [address] [place] [address] PPO [id number] 2021 Unknown 2020 Medicare [employer] MANAGED [facility] AETNA MEDICARE PLAN (PPO) [id number] 2020-Present [id number] 2020 Medicare [id number] 2020 Medicare [id number] 1959 Unknown [id number] 2.16.840.1.576318.3.579.2 .356 1959 Unknown [id number] 2.16.840.1.043681.3.579.2 .903 1959 Unknown [id number] 2.16.840.1.435634.3.579.2 .900 1959 Unknown [id number] 2.16.840.1.471287.3.579.2 .900 1959 Unknown [id number] 2.16.840.1.095676.3.579.2 .903 1959 Unknown [id number] 2.16.840.1.274010.3.579.2 .903 1959 Unknown [id number] 2.16.840.1.886491.3.579.2 .903 1959 Unknown [id number] 2.16.840.1.151895.3.579.2 .902 1959 Unknown [id number] 2.16.840.1.493950.3.579.2 .902 1959 Unknown [id number] 2.16.840.1.442602.3.579.2 .902 1959 Unknown [id number] 2.16.840.1.323087.3.579.2 .902 1959 Unknown [id number] 2.16.840.1.122488.3.579.2 .902 1959 Unknown [id number] 2.16.840.1.259947.3.579.2 .9 1959 Unknown [id number] 2.16.840.1.152641.3.579.2 .9 1959 Unknown [id number] 2.16.840.1.587405.3.579.2 .9 1959 Unknown [id number] 2.16.840.1.709690.3.579.2 .1068 1959 Unknown [id number] 2.16.840.1.075237.3.579.2 .9 1959 Unknown [id number] 2.16.840.1.782797.3.579.2 .903 1959 Unknown [id number] 2.16.840.1.287144.3.579.2 .903 1959 Unknown [id number] 2.16.840.1.335427.3.579.2 .903 1959 Unknown [id number] 2.16.840.1.554690.3.579.2 .903 1959 Unknown [id number] 2.16.840.1.443592.3.579.2 .903 1959 Unknown [id number] 2.16.840.1.429540.3.579.2 .903 1959 Unknown [id number] 2.16.840.1.863421.3.579.2 .903 1959 Unknown [id number] 2.16.840.1.511626.3.579.2 .903 1959 Unknown [id number] 2.16.840.1.996888.3.579.2 .903 1959 Unknown [id number] 2.16.840.1.155007.3.579.2 .903 1959 Unknown [id number] 2.16.840.1.524565.3.579.2 .903 1959 Unknown [id number] 2.16.840.1.159710.3.579.2 .903 1959 Unknown [id number] 2.16.840.1.794939.3.579.2 .903 1959 Unknown [id number] 2.16.840.1.187894.3.579.2 .903 1959 Unknown [id number] 2.16.840.1.490057.3.579.2 .90 Private Health Insurance Private Health Insurance [id number] Social History Date Type Detail Facility Start: 12-30-2020 End: 08-12-2022 Tobacco smoking status PRIS Former smoker [facility] Start: 12-30-2020 End: 08-12-2022 Tobacco use and exposure Never used [facility] Start: 12-30-2020 End: 10-24-2023 Alcohol intake Current drinker of alcohol (finding) [facility] Start: 12-25-2020 End: 08-25-2022 History SDOH Alcohol Frequency 2 [facility] Start: 12-25-2020 End: 02-17-2021 History SDOH Alcohol Std Drinks 1 [facility] Start: 12-25-2020 Tobacco Comment QUIT IN [facility] Start: 1960 [facility]: 01-03-2022 End: 05-16-2023 Exposure to SARS-CoV-2 (event) Not sure [facility] Start: 04-20-2022 End: 04-28-2023 Former smoker Former smoker [facility] Goals Date Patient Goal Desired Activity /State Personal health goal Functional Status Date Assessment Result Facility NEGATED: Highlighted row Functional performance Functional status health issues are not documented Disease [facility] Work Phone: Mental Status Date Assessment Result Facility NEGATED: Highlighted row Cognitive function [Interpretation] Cognitive status health issues are not documented Disease [facility] Work Phone: Clinical Notes 02-11-2010 to 11-21-2023 Elizabeth Dumas RT(R) - 10/24/2023 2:30 PM Walt Heath APRN.EDUCATIONAL COORDINATOR - 10/24/2023 11:20 AM Ashley Hernández MD - 09/26/2023 3:53 PM Evi Augustine RN - 09/26/2023 3:00 PM EST Note Date & Type Note Facility 11-21-2023 Note HNO ID: [id number] Author: FREDERIC BARTH, DO Service: ? Author Type: Anesthesiologist Type: Progress Notes Filed: 11/21/2023 11:21 Note Text: THE [facility] [place] November 21, 2023 Oniel Norman is a 62 year old disabled x 20 years who lives alone in [place], [place]. She was referred by Walt Carrion [address] [place] [address]. Chief complaint: Lower back pain SUBJECTIVE: Fell [...] EF of 64% Uncontrolled HTN: N Recent VA: N, none within past year Arrythmias: N [...] left l (more content not included)... [facility] 11-09-2023 Note HNO ID: [id number] Author: Ernesto Pressley RT(R) Service: Radiology Author [...] RT Deven(R) November 09, 2023 3:22 PM [facility] 10-24-2023 Note HNO ID: [id number] Author: Elizabeth Dumas RT(R) Service: Radiology Author [...] Zaria(R) October 24, 2023 2:17 PM [facility] 10-24-2023 Note HNO ID: [id number] Author: NORMA NARAYANAN PA-C Service: ? Author Type: Physician Field Reporter Type: Progress Notes Filed: 11/28/2023 08:33 Note Text: Orthopedic and Rheumatologic [place] Department of Rheumatic and Immunologic Diseases New Patient Date of Service: 10/24/2023 Patient: Oniel Norman Medical Record: [id number] Primary Care Physician: Liliya Lara MD Referring Physician: Walt Carrion Last Rheumatology visit: None at [facility] This consult was requested by the [...] daily. Aspiri (more content not included)... [facility] 10-24-2023 History of Present illness Narrative [...] 2023 2:17 PM documented in this encounter [facility] 10-24-2023 Note HNO ID: [id number] Author: Walt Carrion APRN.EDUCATIONAL COORDINATOR Service: ? Author Type: Nurse Practitioner Type: [...] such a (more content not included)... [facility] 10-24-2023 History of Present illness Narrative [...] which included preparing to see the patient, lamr-xp-[id number] patient care, completing clinical documentation, obtaining and/or reviewing separately obtained history, performing a medically appropriate examination, counseling and educating the patient/family/caregiver, independently interpreting results (not separately reported), and communicating results to the patient/family/caregiver. SIGNATURE: Walt Carrion APRN.CNP PATIENT NAME: Oniel Norman DATE: October 24, 2023 TIME: 9:24 AM PAGER: documented in this encounter [facility] 09-26-2023 Note HNO ID: [id number] Author: Ashley Gaivn MD Service: ? Author Type: Physician Type: [...] blood pressure cuff, and pulse oximetry. A bench assembler battery film was taken to identify the correct [...] Clinic Visit. COMPLICATIONS: None Comment(s): None [facility] 09-26-2023 Note HNO ID: [id number] Author: Evi East RN Service: ? Author [...] Left Verified by patient by: Dr. Gavin Barrel Repairer for post spine injection procedure: Yes Patient [...] None Electronicall (more content not included)... [facility] 09-26-2023 Procedure note Procedure Note Sacroiliac [...] blood pressure cuff, and pulse oximetry. A bench assembler battery film was taken to identify the correct [...] None Comment(s): None documented in this encounter [facility] 09-26-2023 History of Present illness Narrative [...] Left Verified by patient by: Dr. Gavin Barrel Repairer for post spine injection procedure: Yes Patient [...] 2-4 weeks post procedure or by calling [phone], [facility] central scheduling. Discharge as above criteria met: Yes Condition of surgical/injection site at discharge: dry, intact, other: Yes September 26, 2023 Additional notes: Patient without further questions. Discharge time: 1602 documented in this encounter [facility] 09-26-2023 History and physical note UPDATED [...] with explicit agreement by patient or patient security representative before surgery. SIGNATURE: Magnus Varela MD DATE: September 26, 2023 TIME: 2:44 PM documented in this encounter [facility] 09-26-2023 Nurse Note PATIENT NAME: Oniel Norman 1960 62 year old Current medications and allergies reviewed with patient in visit navigator: Yes Baseline vital signs and pain assessment entered in activity in visit navigator: Yes Barrel Repairer for post spine injection procedure: Yes First [...] 2023 2:24 PM documented in this encounter [facility] 09-21-2023 Miscellaneous Notes Neuro SPINE CARE [...] premedicating prior to procedure. Isabelle Daniel RN Fish Cake Maker Patient is calling in with questions about her medication prednisone Ph. [phone] documented in this encounter [facility] 09-20-2023 Miscellaneous Notes Neuro SPINE CARE COORDINATION QUICK NOTE 09/19/23 R side completed. Patient to schedule L side - scheduled for 09/26/23 documented in this encounter [facility] 09-19-2023 Note HNO ID: [id number] Author: Evi East RN Service: ? Author [...] Bilateral Verified by patient by: Dr. Gavin Barrel Repairer for post spine injection procedure: Yes Patient [...] MATERIAL: P (more content not included)... [facility] 09-19-2023 Note HNO ID: [id number] Author: Ashley Gavin MD Service: ? Author [...] blood pressure cuff, and pulse oximetry. A bench assembler battery film was taken to identify the correct [...] SI on multiple attempts Comment(s): None [facility] 09-19-2023 Note HNO ID: [id number] Author: Courtney Ryan MA Service: ? Author Type: Survey Party Chief Type: Progress Notes Filed: 09/19/2023 4:59 PM Note Text: PATIENT NAME: Oniel Norman 1960 62 year old Current medications and allergies reviewed with patient in visit navigator: Yes Baseline vital signs and pain assessment entered in activity in visit navigator: Yes Barrel Repairer for post spine injection procedure: Yes First [...] MA September 19, 2023 1:25 PM [facility] 09-19-2023 History of Present illness Narrative [...] Bilateral Verified by patient by: Dr. Gavin Barrel Repairer for post spine injection procedure: Yes Patient [...] entered in activity in visit navigator: Yes Barrel Repairer for post spine injection procedure: Yes First [...] 2023 1:25 PM documented in this encounter [facility] 09-19-2023 Procedure note Procedure Note Sacroiliac [...] blood pressure cuff, and pulse oximetry. A bench assembler battery film was taken to identify the correct [...] attempts Comment(s): None documented in this encounter [facility] 09-19-2023 History and physical note UPDATED [...] with explicit agreement by patient or patient security representative before surgery. SIGNATURE: Magnus Varela MD DATE: September 19, 2023 TIME: 1:20 PM documented in this encounter [facility] 09-13-2023 Miscellaneous Notes Addended by: MAHSA KILGORE on: 09/13/2023 05:06 PM Modules accepted: Orders Neuro SPINE CARE COORDINATION QUICK NOTE Preparations for Spine Injection Procedure [facility]: Spoke to patient and reviewed instructions. Encouraged patient to review [employer] message and contact the office with any [...] Diabetic: No Patient notified: Must have a combine driver that will remain present for entire procedure: Yes REQUIRED Nothing to eat or drink for 6 hours prior to this injection performed at [facility]. Take routine medications when they are normally due with small amount of water up to 2 hours prior. Avoid pain medications or OTC pain relievers the day of the injection. Provided education on spine injection procedure and answered questions. Given office phone number [phone] and [address] [facility] [phone] for any location or scheduling questions. Patient verbalized understanding of above instructions: Yes [employer] message sent with instructions: Yes TANK Uribe, RN September 13, 2023 4:48 PM documented in this encounter [facility] 09-06-2023 Note HNO ID: [id number] Author: Tommy Brennan MD Service: ? Author Type: Physician Type: Progress Notes Filed: 09/06/2023 2:34 PM Note Text: SPINE SURGERY OUTPATIENT CONSULT This is an in-person visit. SERVICE DATE: 09/06/2023 PCP: Liliya Lara MD REFERRING PROVIDER: Liliya Lara [address] [address] Consult requested for an opinion regarding the [...] compression fracture; had L1-L4 lumbar fusion at [facility] DURATION OF SYMPTOMS: Less Than 6 Weeks [...] Chest Pressure Strain of Neck Muscle Old [facility] (Myocardial Infarction) Leg Swelling Beta-Cristiana Intolerance S/P [...] GENERAL: No (more content not included)... [facility] 09-02-2023 Miscellaneous Notes Neuro SPINE CARE COORDINATION QUICK NOTE Pt has not yet been seen. First appt scheduled for 09/[address] Brennan. Isabelle Daniel, RN Fish Cake Maker Received the following record(s) via . -MRI L Spine wo Date 04/14/23 Record(s) scanned into pt's chart. Imaging already uploaded Danielle Samayoa documented in this encounter [facility] 08-29-2023 Note HNO ID: [id number] Author: Laura Acosta, RT(R) Service: ? Author [...] RT Zhao(R) August 29, 2023 1:[address] [facility] 08-29-2023 History of Present illness Narrative Radiology [...] 2023 1:03 PM documented in this encounter [facility] 08-15-2023 Evaluation + Plan note Associated Problem(s): Dermatitis triamcinalone cream prescribed Discussed lifestyle modifications which can help prevent dry skin [facility] 08-15-2023 Miscellaneous Notes Associated Problem(s): Dermatitis triamcinalone [...] most pronounced at L4-L5 and L5-S1 with irei-en-lddrncch bilateral neural foraminal stenosis -referral to spine surgery. Pt does not want to follow up w/ [facility] -pt does have referral to pain management by [facility] and is currently awaiting an appt -at this time I advised patient to follow up w/ pain management for control of her symptoms- I would continue acetaminophen 1000mg tid as needed. documented in this encounter [facility] 08-15-2023 Evaluation + Plan note Associated Problem(s): Anxiety Continue lexapro 10mg daily Advised pt to follow up with counseling- but pt reports financial difficulties at this time -social work has reached out to pt to discuss options [facility] 08-15-2023 Evaluation + Plan note Associated Problem(s): Essential hypertension controlled [facility] 08-15-2023 Evaluation + Plan note Associated Problem(s): Restless leg requip prescribed [facility] 08-15-2023 Evaluation + [...] most pronounced at L4-L5 and L5-S1 with iyim-rb-rcxfyzdt bilateral neural foraminal stenosis -referral to spine surgery. Pt does not want to follow up w/ [facility] -pt does have referral to pain management by [facility] and is currently awaiting an appt -at this time I advised patient to follow up w/ pain management for control of her symptoms- I would continue acetaminophen 1000mg tid as needed. [facility] 08-09-2023 Note HNO ID: [id number] Author: Walt Carrion APRN.EDUCATIONAL COORDINATOR Service: ? Author Type: Nurse Practitioner Type: [...] No complication after surgery 05/06/2023 lumbar surgery [address] [place] [id number], [place], [place] CMT: Gabapentin; PT for shoulder and [...] Dr Brennan XR prior to appointment. [facility] 08-09-2023 History of Present illness Narrative [...] No complication after surgery 05/06/2023 lumbar surgery [facility] [address], [place], [place] CMT: Gabapentin; PT for shoulder and hip [...] Health Provider or Pain Management Provider at [facility]? No If answer is YES please schedule [...] the facility where the MRI/CT/myelogram was completed: [facility] [id number] AND [facility] [address], [place] [address] AND [facility] [address] [place] [address] [place] [address] MRI/CT/myelogram viewable in Epic: No If not, please provide [phone] to fax in imaging reports for review. Also, please inform patient to hand carry imaging disc to appointment. XR (spine) within 12 months: Yes If YES, please ask for the name/address of the facility where the XR [place]: [place] [address] Dr. Danielle's patients: Have you had previous [...] the surgery was completed: 05/06/2023 lumbar surgery [facility] [address], [place] [address] Additional Comments [phone] documented in this encounter [facility] 08-04-2023 Note HNO ID: [id number] Author: Ester Boswell Service: ? Author Type: ? Type: Progress Notes Filed: 08/09/2023 10:50 AM Note Text: Patient name: Oniel Norman Are you being referred by a Center for [facility] Provider or Pain Management Provider at [facility]? No If answer is YES please schedule [...] facility where the MRI/CT/myelogram was completed: [facility] [address] [place] [address] AND [facility] [address], [place] [address] AND [facility] [address] [place] [address] AND [facility] [address] [place] [address] MRI/CT/myelogram viewable in Epic: No If not, please provide [phone] to fax in imaging reports for review. Also, please inform patient to hand carry imaging disc to appointment. XR (spine) within 12 months: Yes If YES,? please ask for the name/address of the facility where the XR was [place]: [place] [address] Dr. Danielle's patients: Have you had previous [...] the surgery was completed: 05/06/2023 lumbar surgery [facility] [address], [place] [address] Additional Comments [phone] [facility] 08-01-2023 History of Present illness Narrative [...] most pronounced at L4-L5 and L5-S1 with yocy-fd-nbbvmhkg bilateral neural foraminal stenosis -referral to spine surgery. Pt does not want to follow up w/ [facility] -pt does have referral to pain management by [facility] and is currently awaiting an appt [...] effects of the medications. Liliya Lara MD [facility] [address] [facility] [address] [facility] [address] Dept: [phone] Subjective Chief Complaint Patient presents with Follow-up [...] most pronounced at L4-L5 and L5-S1 with ueyc-ym-hfckvxsr bilateral neural foraminal stenosis. 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 ([facility]) 10/05/2015 Bipolar disorder, most recent episode depressed ([facility]) 12/25/2020 Callus of foot interdigital on right foot CHF (congestive heart failure) ([facility]) Chronic prescription opiate use Circulation problem Controlled substance agreement signed Depression GERD (gastroesophageal reflux disease) Hair loss Heart disease Hyperlipidemia Hypertension Left hip pain 07/26/2022 Migraine 12/25/2020 Myocardial infarct ([facility]) PT STATES SHE HAS HAD 10 HEART ATTACKS FROM 1999 TO 2003 Painful orthopaedic hardware ([facility]) Left first MPJ Weight loss Past Surgical [...] Penicillins Iodine And Iodide Containing Products Unknown Cnlauijx-Oindgdnwu-Ceaxsutmbk rash and itching Adhesive Itching and Rash Plastic bandaids Ct: Iodinated Contrast- Oral And Iv Dye Unknown and Rash Neosporin (Tho-Pmi-Efjed) [Rpegdmfy-Volvgbcvmh-Nntkdkfuc] Rash Ointment only Patient's Medications New Prescriptions [...] L hip flexion) present. Coordination: Coordination normal. Buelpz-Wcut-Mgpswt Test and Heel to Hightower Test normal. Gait: Gait abnormal. Psychiatric: Mood and Affect: Mood is anxious. Affect is tearful. Behavior: Behavior is cooperative. PHQ9: PHOEBE-7 Tobacco Counseling: Counseling given: Not Answered Tobacco comments: QUIT IN 1999 documented in this encounter [facility] 06-25-2023 History of Present illness Narrative Assessment Date: 06/25/23 Pain Type & Exclusions Type of Pain: Subacute/Chronic Do exclusions apply to your patient (select all that apply): No Exclusions Apply Called [facility] pharmacy to have pt bring back any norco tabs left that the pt has to discard -however pharmacy is unable to do that Pharmacist stated she would need to bring them to the physician's office -however we are now allowed to take medications back from pt's per VERENA. We also discussed pt taking medication to [facility] to discard. Advise pharmacy that I would send in a short course of percocet for pt and I would let pt know to take the [facility]. documented in this encounter [facility] 06-21-2023 Evaluation + Plan note Associated Problem(s): Intractable back pain Advised pt to go to ER for imaging Advised pt to call after her discharge and we would develop plan for pain control until she sees orthopedics at the end of the month [facility] 06-21-2023 Miscellaneous Notes Associated Problem(s): Intractable back pain Advised pt to go to ER for imaging Advised pt to call after her discharge and we would develop plan for pain control until she sees orthopedics at the end of the month documented in this encounter [facility] 06-21-2023 History of Present illness Narrative Images from the original note were not included. Assessment Assessment/Plan: Problem List Anxiety Relevant Medications ALPRAZolam (XANAX) 0.5 MG tablet CAD (coronary artery disease), [place] coronary artery Relevant Medications bumetanide (BUMEX) 1 [...] the medications. Liliya Lara MD [facility] [address] [facility] [address] [facility] [address] Dept: [phone] Subjective Chief Complaint Patient presents with Follow-up [...] else to do. 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 ([facility]) 10/05/2015 Bipolar disorder, most recent episode depressed ([facility]) 12/25/2020 Callus of foot interdigital on right foot CHF (congestive heart failure) ([facility]) Chronic prescription opiate use Circulation problem Controlled substance agreement signed Depression Hair loss Heart disease Hyperlipidemia Hypertension Left hip pain 07/26/2022 Migraine 12/25/2020 Myocardial infarct ([facility]) PT STATES SHE HAS HAD 10 HEART ATTACKS FROM 1999 TO 2003 Painful orthopaedic hardware ([facility]) Left first MPJ Weight loss Past Surgical [...] Penicillins Iodine And Iodide Containing Products Unknown Vrfjsrrv-Yeanyzugr-Xisxvminya rash and itching Adhesive Itching and Rash Plastic bandaids Ct: Iodinated Contrast- Oral And Iv Dye Unknown and Rash Neosporin (Ofm-Rua-Pwjvs) [Pzwfwosd-Fyyxxdndvt-Mtvtrpluc] Rash Ointment only Patient's Medications New Prescriptions [...] L hip flexion) present. Coordination: Coordination normal. Wuhkea-Syse-Hetach Test and Heel to Hightower Test normal. [...] difficult at all documented in this encounter [facility] 05-31-2023 History of Present illness Narrative SW [...] assist pt as needed. JENNIFER Gutierrez, KATINA Tank Washer/ Care Management [facility] Primary Care [phone] documented in this encounter [facility] 05-16-2023 Emergency department Note RN went over discharge instructions with the patient, Patient was able to reinstruct RN with discharge care. Patient denies any questions. Patient is A&Ox3 at time of discharge. Laura Mosley RN 05/16/232202 [facility] 05-16-2023 Emergency department Note RN went over discharge instructions with the patient, Patient was able to reinstruct RN with discharge care. Patient denies any questions. Patient is A&Ox3 at time of discharge. Laura Mosley RN 05/16/232202 Pt given shawn blas per her request Liz Powers LPN 05/16/232011 Registration in with pt Liz Powers LPN 05/16/232009 Pt back from CT Liz Powers LPN 05/16/231933 [facility] Quick Cognitive Screen Performed [x] [...] site, fever. Follow-up PCP. Follow-up with [facility] as needed. PROCEDURES: Unless otherwise noted below, none Procedures FINAL IMPRESSION 1. S/P lumbar spine operation DISPOSITION Discharge 05/16/2023 09:40:01 PM PATIENT REFERRED TO: [facility] [address] [place] [id number] DISCHARGE MEDICATIONS: New Prescriptions CALCITONIN, SALMON, [...] Burgos PA-C 05/16/232138 documented in this encounter [facility] 05-16-2023 Hospital Discharge instructions Ela Hill MD - 05/16/2023 9:46 PM EDT Images from the original note were not included. Please follow-up with [facility] as needed. Follow-up with your PCP [...] the hospital doctors documented in this encounter [facility] 05-16-2023 Emergency department Note Pt given shawn blas per her request Liz Powers LPN 05/16/232011 [facility] 05-16-2023 Emergency department Note Registration in with pt Liz Powers LPN 05/16/232009 [facility] 05-16-2023 Emergency department Note Pt back from CT Liz Powers LPN 05/16/23 193 [facility] 05-16-2023 Emergency department Note [facility] Quick Cognitive Screen Performed [x] [...] in room Laura Mosley RN 05/16/23 180 [facility] 05-16-2023 Physician Emergency department Note Images from [...] Discharge 05/16/2023 09:40:01 PM PATIENT REFERRED TO: [facility] [address] [place] [id number] DISCHARGE MEDICATIONS: New Prescriptions CALCITONIN, SALMON, [...] signed) Emergency Medicine Provider ASTON Reid 05/16/232199 [facility] 05-16-2023 Physician Emergency department Note In the absence of the provider I prescribed patient Muscle relaxer and intranasal calcitonin per request of orthopedics. Monalisa Burgos PA-C 05/16/232138 [facility] 05-10-2023 Evaluation + Plan note Associated Problem(s): Anxiety Refill of medications [facility] 05-10-2023 Miscellaneous Notes Associated Problem(s): Anxiety Refill of medications Associated Problem(s): Preop exam for internal medicine Medically cleared for surgery documented in this encounter [facility] 05-10-2023 Evaluation + Plan note Associated Problem(s): Preop exam for internal medicine Medically cleared for surgery [facility] 05-04-2023 History of Present illness Narrative Images [...] the medications. Liliya Lara MD [facility] [address] [facility] [address] [facility] [address] Dept: [phone] Subjective Chief Complaint Patient presents with Pre-op [...] Guidelines): Procedure: Posterior lumbar fusion Date:05/06/23 Surgeon-Dr. Kenney-[facility] Revised Saini cardiac risk index (RCRI): -High-risk type of surgery- no (includes any intraperitoneal, intrathoracic, or suprainguinal vascular procedures) -History of ischemic heart disease- Yes history of VA or a positive exercise test, current complaint [...] of Major Adverse Cardiac Event (MACE - VA, Cardiac arrest or ) RCRI < 2 [...] artery bypass graft with unstable angina pectoris ([facility]) 10/05/2015 Bipolar disorder, most recent episode depressed ([facility]) 12/25/2020 Callus of foot interdigital on right foot CHF (congestive heart failure) ([facility]) Chronic prescription opiate use Circulation problem Controlled substance agreement signed Depression Hair loss Heart disease Hyperlipidemia Hypertension Left hip pain 07/26/2022 Migraine 12/25/2020 Myocardial infarct ([facility]) PT STATES SHE HAS HAD 10 HEART ATTACKS FROM 1999 TO 2004 Painful orthopaedic hardware ([facility]) Left first MPJ Weight loss Past Surgical [...] Penicillins Iodine And Iodide Containing Products Unknown Ddvpymqj-Ncxigygby-Icbliuytls rash and itching Adhesive Itching and Rash Plastic bandaids Ct: Iodinated Contrast- Oral And Iv Dye Unknown and Rash Neosporin (Stf-Goa-Lnlqe) [Mgqxmnqv-Dknmzxlfyd-Brhxlugjb] Rash Ointment only Patient's Medications New Prescriptions [...] QUIT IN 1999 documented in this encounter [facility] 04-28-2023 Note HNO ID: [id number] Author: Efra Buck APRN.EDUCATIONAL COORDINATOR Service: ? Author Type: Nurse Practitioner Type: Progress Notes Filed: 04/28/2023 10:53 AM Note Text: PRIMARY CARE PHYSICIAN: Liliya Lara [address] [place] [id number] Chief Complaint Patient presents with: Cardiology Follow Up : CAD, CHF HISTORY OF PRESENT ILLNESS: Ms. Norman is a 62 year old female who is known to Dr. Espino last seeing him in the office in October 2022, she also follows with Dr. Woo at [facility] when she was seen by Dr. Espino for preoperative cardiovascular assessment for a left hip arthroplasty patient has a history of coronary artery disease status post coronary bypass graft surgery Patient is here today for cardiovascular assessment for a upcoming planned surgery at [facility] orthopedic surgery with Dr. Kenney for a [...] 177 lb (80.3 (more content not included)... [facility] 04-28-2023 Instructions Efra Buck APRN.CNP - 04/28/2023 10:24 AM EDT Ok to hold asa 81mg for 5-7 days if needed. documented in this encounter [facility] 04-28-2023 History of Present illness Narrative PRIMARY CARE PHYSICIAN: Liliya Lara [address] [place] [address] Chief Complaint Patient presents with: Cardiology Follow Up : CAD, CHF HISTORY OF PRESENT ILLNESS: Ms. Norman is a 62 year old female who is known to Dr. Espino last seeing him in the office in October 2022, she also follows with Dr. Woo at [facility] when she was seen by Dr. Espino for preoperative cardiovascular assessment for a left hip arthroplasty patient has a history of coronary artery disease status post coronary bypass graft surgery Patient is here today for cardiovascular assessment for a upcoming planned surgery at [facility] orthopedic surgery with Dr. Kenney for a [...] on 02/04/2012 (Dobut). Similar resting findings. 02/05/21: [facility]: Summary 1. Mildly enlarged left ventricular [...] focal disease. _ The mid circumflex - CONDUCTOR/ENGINEER and ISR. Additional Comment: - the LCx [...] the proximal OM1 with known occluded SVG-OM1; CONDUCTOR/ENGINEER of the mid LCx stent and patent [...] the proximal OM1 with known occluded SVG-OM1; CONDUCTOR/ENGINEER of the mid LCx stent and patent [...] coordination of care. documented in this encounter [facility] 04-28-2023 Nurse Note Pt has no cardiac complaints or symptoms documented in this encounter [facility] 02-23-2023 History of Present illness Narrative [...] covered medication list. documented in this encounter [facility] 02-23-2023 History of Present illness Narrative Please [...] covered medication list. documented in this encounter [facility] 02-23-2023 Evaluation + Plan note Associated Problem(s): Lower extremity edema Advised pt to obtain BMP States lower ext edema has not improved Discussed elevating her legs and using compression stockings [facility] 02-23-2023 Miscellaneous Notes Associated Problem(s): Lower extremity edema Advised pt to obtain BMP States lower ext edema has not improved Discussed elevating her legs and using compression stockings Associated Problem(s): Rib pain Likely contusion Will order rib xrays as pt continues to complain of pain Advised pt to use ice packs as needed Analgesics recommended documented in this encounter [facility] 02-23-2023 Evaluation + Plan note Associated Problem(s): Rib pain Likely contusion Will order rib xrays as pt continues to complain of pain Advised pt to use ice packs as needed Analgesics recommended [facility] 02-23-2023 History of Present illness Narrative Images [...] the medications. Liliya Lara MD [facility] [address] [facility] [address] [facility] [address] Dept: [phone] Subjective Chief Complaint Patient presents with Transition [...] artery bypass graft with unstable angina pectoris ([facility]) 10/05/2015 Bipolar disorder, most recent episode depressed ([facility]) 12/25/2020 Callus of foot interdigital on right foot CHF (congestive heart failure) ([facility]) Chronic prescription opiate use Circulation problem Controlled substance agreement signed Depression Hair loss Heart disease Hyperlipidemia Hypertension Left hip pain 07/26/2022 Migraine 12/25/2020 Myocardial infarct ([facility]) PT STATES SHE HAS HAD 10 HEART ATTACKS FROM 1999 TO 2003 Painful orthopaedic hardware ([facility]) Left first MPJ Weight loss Past Surgical [...] Penicillins Iodine And Iodide Containing Products Unknown Gudnrkkk-Mutpfzyum-Vhvhbpkhma rash and itching Adhesive Itching and Rash Plastic bandaids Ct: Iodinated Contrast- Oral And Iv Dye Unknown and Rash Neosporin (Ewk-Yvy-Zkwab) [Cyjuxaqm-Rindagnaht-Lndbnoaom] Rash Ointment only Patient's Medications New Prescriptions [...] QUIT IN 1999 documented in this encounter [facility] 02-17-2023 History of Present illness Narrative [facility] reached out to patient in 3rd attempt regarding BH referral placed by PCP. [facility] left message including contact information with request for a return call. This is the final attempt. documented in this encounter [facility] 01-26-2023 Instructions Liliya Lara MD - 01/26/2023 12:58 PM EDT Problem List Items Addressed This Visit Endocrine Impaired glucose tolerance in obese Will get ha1c Relevant Orders Hemoglobin A1c Cardiovascular and Mediastinum CAD (coronary artery disease), [place] coronary artery Refill on medications Relevant Medications [...] advised patient I would not continue this skilled nursing referral placed for medication management Relevant Medications ALPRAZolam (XANAX) 0.5 MG tablet Other Relevant Orders Ambulatory referral to Behavioral Health TSH with Reflex Free T4 Hemoglobin A1c Drugs of Abuse Screen, Urine Ambulatory Ref to [facility] Physical Therapy Manager Bipolar disorder, most recent episode depressed (HCC) [...] Relevant Orders Ambulatory Ref to [place] [facility] Physical Therapy Manager Vitamin D deficiency Relevant Orders Vitamin D, [...] Most normal results will be available through [employer] however if abnormal, you will be notified. [...] look into their status. Customer Service/Billing Questions: [phone] [employer] Assistance: [phone] or [phone] Financial Assistance: [phone] or [phone] documented in this encounter [facility] 01-26-2023 Evaluation + Plan note Associated Problem(s): Low vitamin D level We will get updated vitamin D level [facility] 01-26-2023 Evaluation + Plan note Associated Problem(s): Bipolar disorder, most recent episode depressed (HCC) Continue with Lamictal 200 mg daily Lexapro did not help with her symptoms We will start Effexor today Psychiatry referral placed [facility] 01-26-2023 Miscellaneous Notes Associated Problem(s): Low vitamin [...] ha1c Associated Problem(s): CAD (coronary artery disease), [place] coronary artery Refill on medications Associated Problem(s): [...] advised patient I would not continue this buttermaker BH referral placed for medication management Associated Problem(s): Insomnia Refill on trazodone Discontinue elavil Will start effexor- advised pt I would like her anxiety controlled which I believe is contributing to her symptoms Do not take xanax to help w/ insomnia documented in this encounter [facility] 01-17-2023 Evaluation + Plan note Associated Problem(s): Chronic heart failure with preserved ejection fraction (HCC) Advised pt to increase bumex- start taking 1mg in AM and 0.5mg pm She was only taking 0.5mg nightly because she did not want this to interfere with work -advised pt to complete labs in the next few days [facility] 01-17-2023 Evaluation + Plan note Associated [...] do not improve, will place neurology referral [facility] 01-17-2023 Evaluation + Plan note Associated Problem(s): Impaired glucose tolerance in obese Will get ha1c [facility] 01-17-2023 Evaluation + Plan note Associated Problem(s): CAD (coronary artery disease), [place] coronary artery Refill on medications [facility] 01-17-2023 Evaluation + Plan note Associated [...] advised patient I would not continue this buttermaker BH referral placed for medication management [facility] 01-17-2023 Evaluation + Plan note Associated Problem(s): Insomnia Refill on trazodone Discontinue elavil Will start effexor- advised pt I would like her anxiety controlled which I believe is contributing to her symptoms Do not take xanax to help w/ insomnia [facility] 01-17-2023 Telephone encounter Note Pt requesting refill, she needs this sent to local pharmacy. She had appointment with gary rush, 01/17/23. [facility] 01-17-2023 Miscellaneous Notes Pt requesting refill, she needs this sent to local pharmacy. She had appointment with gary rush, 01/17/23. documented in this encounter [facility] 01-17-2023 History of Present illness Narrative Images [...] advised patient I would not continue this buttermaker BH referral placed for medication management Relevant Medications ALPRAZolam (XANAX) 0.5 MG tablet Other Relevant Orders Ambulatory referral to Behavioral Health TSH with Reflex Free T4 Hemoglobin A1c Drugs of Abuse Screen, Urine Ambulatory Ref to [facility] Physical Therapy Manager Bipolar disorder, most recent episode depressed (HCC) Continue with Lamictal 200 mg daily Lexapro did not help with her symptoms We will start Effexor today Psychiatry referral placed Relevant Medications traZODone (DESYREL) 100 MG tablet ALPRAZolam (XANAX) 0.5 MG tablet venlafaxine (EFFEXOR) 37.5 MG tablet Other Relevant Orders Ambulatory referral to [facility] CAD (coronary artery disease), [place] coronary artery Refill on medications Relevant Medications [...] tablet Other Relevant Orders Ambulatory Ref to [facility] Physical Therapy Manager Migraine Has been using acetaminophen- ineffective Was [...] effects of the medications. Liliya Lara MD [facility] [address] [facility] [address] [facility] [address] Dept: [phone] Subjective Chief Complaint Patient presents with Insomnia [...] Was on lexapro 10mg prior to surgery. [place] like this did not help with anxiety [...] I would not want to cont this skilled nursing as it is not the best medication [...] 10/05/2015 Bipolar disorder, most recent episode depressed ([facility]) 12/25/2020 Callus of foot interdigital on right [...] Penicillins Iodine And Iodide Containing Products Unknown Zrhgaiqw-Bismvtozw-Yfaozheeum rash and itching Adhesive Itching and Rash Plastic bandaids Ct: Iodinated Contrast- Oral And Iv Dye Unknown and Rash Neosporin (Ijh-Zug-Abzgc) [Qoynoybt-Zgasnfwqye-Qodfoycal] Rash Ointment only Patient's Medications New Prescriptions [...] QUIT IN 1999 documented in this encounter [facility] 11-03-2022 History of Present illness Narrative Images from the original note were not included. PRIMARY CARE PHYSICIAN: Renee Sierra NP [address] [place] [address] HISTORY OF PRESENT ILLNESS: Ms. Norman is [...] on 02/04/2012 (Dobut). Similar resting findings. 02/05/21: [facility]: Summary 1. Mildly enlarged left ventricular [...] focal disease. _ The mid circumflex - CONDUCTOR/ENGINEER and ISR. Additional Comment: - the LCx [...] the proximal OM1 with known occluded SVG-OM1; CONDUCTOR/ENGINEER of the mid LCx stent and patent ROSAS-OM2; SVG-OM3 graft is known to be occluded - RCA with mild luminal irregularities Recommended Treatment: Medical Therapy. 09/13/2006: [facility]-: Summary 45 year-old female with known CAD [...] to continue medical therapy. Recommendations : Med [place] Holter / Event Recorder : 01/29/22: Patient [...] antegrade flow noted. Technologist: Romario Guerra RVT, RDMT Ordering physician: SELENE WOO Interpreting physician: Joyce [...] She wishes to be followed at our [place] location, we will acquiesce. documented in this encounter [facility] 11-03-2022 Nurse Note Patient has no cardiac complaints today. Joan Corey CMA documented in this encounter [facility] 11-03-2022 Miscellaneous Notes Summary: records in opd file Received 2 pages from [facility] documented in this encounter [facility] 10-26-2022 Instructions Liliya Lara MD - 10/26/2022 11:53 AM EST Problem List Items Addressed This Visit Cardiovascular and Mediastinum CAD (coronary artery disease), [place] coronary artery Refill on medications Relevant Medications [...] Most normal results will be available through [employer] however if abnormal, you will be notified. [...] look into their status. Customer Service/Billing Questions: [phone] [employer] Assistance: [phone] or [phone] Financial Assistance: [phone] or [phone] documented in this encounter [facility] 10-26-2022 Evaluation + Plan note Associated Problem(s): Migraine Has been using imitrex despite being discontinued due to underlying heart disease. she also states that this did not control her symptoms nurtec and ubrevly were quite costly- approx 200-300 out of pocket despite insurance coverage Was on gabapentin- this did not help Was prescribed elavil for prophylaxis advised pt to start taking this nightly [facility] 10-26-2022 Miscellaneous Notes Associated Problem(s): Migraine Has [...] nightly Associated Problem(s): CAD (coronary artery disease), [place] coronary artery Refill on medications Associated Problem(s): Preop exam for internal medicine Medically cleared for surgery Associated Problem(s): Insomnia Refill on trazodone Advised pt to take elavil 10mg nightly documented in this encounter [facility] 10-26-2022 History of Present illness Narrative Patient requested to be scheduled in Dec 2022 Images from the original note were not included. Assessment Assessment/Plan: Problem List CAD (coronary artery disease), [place] coronary artery Refill on medications Relevant Medications [...] the medications. Liliya Lara MD [facility] [address] [facility] [address] [facility] [address] Dept: [phone] Subjective Chief Complaint Patient presents with Follow-up [...] of ischemic heart disease- Yes history of VA or a positive exercise test, current complaint [...] of Major Adverse Cardiac Event (MACE - VA, Cardiac arrest or ) RCRI < 2 [...] does have cardiac clearance scheduled w/ her steamfitter on 11/03/22. EKG was not ordered by [...] events with this medication. She was precribed [employer] in the past which was approved but [...] Penicillins Iodine And Iodide Containing Products Unknown Suuqtgcy-Fnwjhmwir-Tprfcmhfno rash and itching Adhesive Itching and Rash Plastic bandaids Ct: Iodinated Contrast- Oral And Iv Dye Unknown and Rash Neosporin (Eqx-Zvv-Rjrpg) [Zlsbtqhn-Phnidljthu-Vbsglpunu] Rash Ointment only Patient's Medications New Prescriptions [...] QUIT IN 1999 documented in this encounter [facility] 10-26-2022 Evaluation + Plan note Associated Problem(s): CAD (coronary artery disease), [place] coronary artery Refill on medications [facility] 10-26-2022 Evaluation + Plan note Associated Problem(s): Preop exam for internal medicine Medically cleared for surgery [facility] 10-26-2022 Evaluation + Plan note Associated Problem(s): Insomnia Refill on trazodone Advised pt to take elavil 10mg nightly [facility] 10-25-2022 Miscellaneous Notes Spoke to Dr Wagner. He will need to see patient in order to sign cardiac clearance forms as she was to follow up in 6 months from [facility]. Was due to be seen in June 2022. Does appear patient has an appt on 11/03/[address] Espino for Cardiac Clearance. Elli Crow RN Summary: OG in opd file Images from the original note were not included. documented in this encounter [facility] 08-12-2022 Nurse Note NO CARDIAC COMPLAINTS TODAY documented in this encounter [facility] 08-12-2022 History of Present illness Narrative Images from the original note were not included. PRIMARY CARE PHYSICIAN: Renee Sierra NP [address] [place] [address] HISTORY OF PRESENT ILLNESS: Ms. Norman is [...] contemplating having multiple orthopedic surgeries at the [facility]. The patient has no coronary artery disease history of stenting and subsequent bypass grafting. Early this year she experiences interscapular pain. Her work-up was negative she still Dr. W[facility]. Patient underwent diagnostic angiography which confirmed occlusion [...] on 02/04/2012 ([facility]). Similar resting findings. 02/05/21: [facility]: Summary 1. Mildly enlarged left ventricular [...] focal disease. _ The mid circumflex - CONDUCTOR/ENGINEER and ISR. Additional Comment: - the LCx [...] the proximal OM1 with known occluded SVG-OM1; CONDUCTOR/ENGINEER of the mid LCx stent and patent ROSAS-OM2; SVG-OM3 graft is known to be occluded - RCA with mild luminal irregularities Recommended Treatment: Medical Therapy. 09/13/2006: [facility]-: Summary 45 year-old female with known CAD [...] is to continue medical therapy. Recommendations : [facility] Holter / Event Recorder : 01/29/22: Patient Name: Oniel Norman : 1960 Ordering Provider: Low Morh Indication: R00.1 Bradycardia, unspecified Type of Monitor: [...] antegrade flow noted. Technologist: Romario Guerra RVT, [facility] Ordering physician: SELENE WOO Interpreting physician: Joyce [...] of the time was spent in direct, lqez-pv-arkp, contact with the patient for management and counseling. Guevara Espino M.D. [facility] This note was partially generated using [employer] voice recognition system, and there may be some incorrect words, spellings, and punctuation that were not noted in checking the note before saving. documented in this encounter [facility] 07-26-2022 Instructions Liliya Lara MD - [...] Most normal results will be available through [employer] however if abnormal, you will be notified. [...] look into their status. Customer Service/Billing Questions: [phone] [employer] Assistance: [phone] or [phone] Financial Assistance: [phone] or [phone] documented in this encounter [facility] 07-26-2022 Evaluation + Plan note Associated Problem(s): Essential hypertension No changes to treatment Sx well controlled [facility] 07-26-2022 Miscellaneous Notes Associated Problem(s): Essential hypertension [...] as pain management documented in this encounter [facility] 07-26-2022 Evaluation + Plan note Associated Problem(s): Bipolar disorder, most recent episode depressed (HCC) Cont w/ lamictal Increase lexapro to 10mg daily- states this has been helping She does not feel like hydroxyzine has been helping [facility] 07-26-2022 Evaluation + Plan note Associated Problem(s): Left hip pain Acute on chronic pain Has appt w/ orthopedic at the end of the month antalagic gait, + kiarra test Tramadol ineffective Will prescribe percocet [facility] 07-21-2022 Evaluation + Plan note Associated Problem(s): Bilateral shoulder bursitis Hx of steroid injections bilaterally Has worsening left shoulder pain 2/2 to mechanical trauma Decreased ROM- unable to lift shoulder > 90 degrees Gabapentin has been ineffective Pt declined physical therapy - has appt w/ orthopedics at the end of the month as well as pain management [facility] 07-21-2022 History of Present illness Narrative Assessment [...] the medications. Liliya Lara MD [facility] [address] [facility] [address] [facility] [address] Dept: [phone] Subjective Chief Complaint Patient presents with Follow-up [...] Penicillins Iodine And Iodide Containing Products Unknown Eahvjjfr-Jyznedklh-Jljnpnidos rash and itching Adhesive Itching and Rash Plastic bandaids Ct: Iodinated Contrast- Oral And Iv Dye Unknown and Rash Neosporin (Toi-Vyj-Phtan) [Yqnwddye-Cdzuafngdk-Rccfepfam] Rash Ointment only Patient's Medications New Prescriptions [...] QUIT IN 1999 documented in this encounter [facility] 06-29-2022 Telephone encounter Note RECEIVED FAX FROM PHARMACY. REQUESTING REFILL ON QUEUED MEDICATION(S). LAST OV:06/22/2022 NEXT OV:07/21/2022 [facility] 06-29-2022 Miscellaneous Notes RECEIVED FAX FROM PHARMACY. REQUESTING REFILL ON QUEUED MEDICATION(S). LAST OV:06/22/2022 NEXT OV:07/21/2022 documented in this encounter [facility] 06-25-2022 Instructions Liliya Lara MD - 06/25/2022 11:46 PM EDT Problem List Items Addressed This Visit Cardiovascular and Mediastinum CAD (coronary artery disease), [place] coronary artery Relevant Orders Lipid Panel TSH [...] given hand out w/ counseling centers in [place] and encouraged to reach out Relevant Medications [...] Most normal results will be available through [employer] however if abnormal, you will be notified. [...] look into their status. Customer Service/Billing Questions: [phone] [employer] Assistance: [phone] or [phone] Financial Assistance: [phone] or [phone] documented in this encounter [facility] 06-25-2022 Evaluation + Plan note Associated Problem(s): Bipolar disorder, most recent episode depressed (HCC) Acute increase in anxiety symptoms She is compliant w/ lamictal 200mg daily Start lexapro and hydroxyzine -she has previous prescription of xanax which she uses sparingly Pt given hand out w/ counseling centers in [place] and encouraged to reach out [facility] 06-25-2022 Miscellaneous Notes Associated Problem(s): Bipolar disorder, most recent episode depressed (HCC) Acute increase in anxiety symptoms She is compliant w/ lamictal 200mg daily Start lexapro and hydroxyzine -she has previous prescription of xanax which she uses sparingly Pt given hand out w/ counseling centers in [place] and encouraged to reach out Associated Problem(s): [...] with counseling services documented in this encounter [facility] 06-25-2022 Evaluation + Plan note Associated Problem(s): Bilateral shoulder bursitis Hx of steroid injections bilaterally Has worsening left shoulder pain 2/2 to mechanical trauma -increase gabapentin to 300mg bid -advised pt to obtain xrays -consider pain management referral as pt states tramadol has not been helping for any of her pain in her shoulders/hips/knees [facility] 06-25-2022 Evaluation + Plan note Associated Problem(s): Anxiety Currently on lamictal for bipolar disorder Start hydroxyzine nightly and increase as tolerated Start lexapro 5mg Advised pt to follow up with counseling services [facility] 06-22-2022 History of Present illness Narrative Assessment [...] given hand out w/ counseling centers in [place] and encouraged to reach out Relevant Medications escitalopram oxalate (LEXAPRO) 5 MG tablet CAD (coronary artery disease), [place] coronary artery Relevant Orders Lipid Panel TSH [...] the medications. Liliya Lara MD [facility] [address] [facility] [address] [facility] [address] Dept: [phone] Subjective Chief Complaint Patient presents with Follow-up [...] and her work load has decrease. 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 I advised the pt that pain management may be an option but we need updated xrays. She states she will discuss this w/ orthopedics at [facility] first to see if they are [...] artery bypass graft with unstable angina pectoris ([facility]) 10/05/2015 Bipolar disorder, most recent episode depressed ([facility]) 12/25/2020 Callus of foot interdigital on right [...] Penicillins Iodine And Iodide Containing Products Unknown Phvvutkn-Luqjkavwy-Egkblyntmc rash and itching Adhesive Itching and Rash Plastic bandaids Ct: Iodinated Contrast- Oral And Iv Dye Unknown and Rash Neosporin (Kxr-Uux-Jybpf) [Rejabdvj-Mkfdnibefo-Wpqhkxtsb] Rash Ointment only Patient's Medications New Prescriptions [...] QUIT IN 1999 documented in this encounter [facility] 05-29-2022 Instructions Liliya Lara MD - 05/29/2022 [...] given hand out w/ counseling centers in [place] and encouraged to reach out Relevant Orders Ambulatory Ref to [facility] Physical Therapy Manager Financial difficulties - Primary Social work referral [...] Most normal results will be available through [employer] however if abnormal, you will be notified. [...] look into their status. Customer Service/Billing Questions: [phone] [employer] Assistance: [phone] or [phone] Financial Assistance: [phone] or [phone] documented in this encounter [facility] 05-29-2022 Evaluation + Plan note Associated Problem(s): Arm skin lesion, right Will prescribe keflex X 5 days Pt does compulsively pick at her skin due to anxiety W/ buspar added, I am hoping this decreases [facility] 05-29-2022 Miscellaneous Notes Associated Problem(s): Arm skin [...] given hand out w/ counseling centers in [place] and encouraged to reach out documented in this encounter [facility] 05-29-2022 Evaluation + Plan note Associated Problem(s): Financial difficulties Social work referral placed to help w/ community resources [facility] 05-29-2022 Evaluation + Plan note Associated Problem(s): Anxiety Acute increase in anxiety symptoms She is compliant w/ lamictal 200mg daily Will start buspar 10mg tid -she has previous prescription of xanax which she uses sparingly Pt given hand out w/ counseling centers in [place] and encouraged to reach out [facility] 05-26-2022 Note Addended by: Terell LARA on: 05/26/2022 04:48 PM Modules accepted: Orders [facility] 05-26-2022 Note Addended by: Terell LARA on: 05/26/2022 04:48 PM Modules accepted: Orders [facility] 05-26-2022 Miscellaneous Notes Addended by: LILIYA LARA on: 05/26/2022 04:48 PM Modules accepted: Orders documented in this encounter [facility] 05-25-2022 History of Present illness Narrative P SAYDA Holden assisting FLORIDA Quinones. [facility] called Oniel regarding BHIP referral from PCP: Liliya Lara MD. Initial attempt. No answer, left vm with [facility] contact information encouraging a call back to discuss the referral further. Follow up scheduled for approx. 1-2 week(s). documented in this encounter [facility] 05-25-2022 History of Present illness Narrative 4 [...] given hand out w/ counseling centers in [place] and encouraged to reach out Relevant Orders Ambulatory Ref to [facility] Physical Therapy Manager Financial difficulties - Primary Social work referral [...] the medications. Liliya Lara MD [facility] [address] [facility] [address] [facility] [address] Dept: [phone] Subjective Patient ID: Oniel Norman is a [...] 10/05/2015 Bipolar disorder, most recent episode depressed ([facility]) 12/25/2020 Callus of foot interdigital on right [...] Penicillins Iodine And Iodide Containing Products Unknown Grbfkuoc-Zlgjosoya-Ldjendwfdo rash and itching Adhesive Itching and Rash Plastic bandaids Ct: Iodinated Contrast- Oral And Iv Dye Unknown and Rash Neosporin (Dxv-Jmt-Gyjqx) [Kirdwlls-Irdwhcxcae-Puzdgpkjk] Rash Ointment only Patient's Medications New Prescriptions [...] difficult at all documented in this encounter [facility] 04-27-2022 History of Present illness Narrative Subjective [...] 10/05/2015 Bipolar disorder, most recent episode depressed ([facility]) 12/25/2020 Callus of foot interdigital on right [...] Penicillins Iodine And Iodide Containing Products Unknown Nxwiplwt-Owbxfkqsd-Zbindaetzb rash and itching Adhesive Itching and Rash Plastic bandaids Ct: Iodinated Contrast- Oral And Iv Dye Unknown and Rash Neosporin (Geg-Ogy-Zmtir) [Bjtlblxo-Ojyhdzgmcx-Sadclfmqy] Rash Ointment only Patient's Medications New Prescriptions [...] controlled on lamictal CAD (coronary artery disease), [place] coronary artery - Primary Status post bypass [...] the medications. Liliya Lara MD [facility] [address] [facility] [address] [facility] [address] Dept: [phone] documented in this encounter [facility] 04-27-2022 Evaluation + Plan note Associated Problem(s): Bipolar disorder, most recent episode depressed (HCC) Sx controlled on lamictal [facility] 04-27-2022 Instructions Liliya Lara MD - 04/27/2022 9:14 AM EDT Problem List Items Addressed This Visit Cardiovascular and Mediastinum CAD (coronary artery disease), [place] coronary artery - Primary Status post bypass [...] Most normal results will be available through [employer] however if abnormal, you will be notified. [...] look into their status. Customer Service/Billing Questions: [phone] MyChart Assistance: [phone] or [phone] Financial Assistance: [phone] or [phone] documented in this encounter [facility] 04-27-2022 Miscellaneous Notes Associated Problem(s): Bipolar disorder, [...] supplements Associated Problem(s): CAD (coronary artery disease), [place] coronary artery Status post bypass graft. Currently [...] at this time documented in this encounter [facility] 04-27-2022 Evaluation + Plan note Associated Problem(s): Hypercholesterolemia Has not followed up w/ lipid panel [facility] 04-27-2022 Evaluation + Plan note Associated Problem(s): Bilateral shoulder bursitis Corticosteroid injections administered today bilateral shoulders Will get updated imaging Pt declined pt/ot [facility] 04-27-2022 Evaluation + Plan note Associated Problem(s): Osteoporosis Advised to follow up with DEXA scan and vitamin D level She is not taking vit d and calcium supplements [facility] 04-27-2022 Evaluation + Plan note Associated Problem(s): CAD (coronary artery disease), [place] coronary artery Status post bypass graft. Currently on Imdur and Bumex she is also taking aspirin and statin as well as lisinopril Last cardiac cath was in 2005 at which time she was not a candidate for surgery. Patient is following up with cardiology. [facility] 04-27-2022 Evaluation + Plan note Associated Problem(s): Essential hypertension Well controlled [facility] 04-27-2022 Evaluation + Plan note Associated Problem(s): Migraine Well controlled on tylenol- she has not needed any additional medications at this time [facility] 02-23-2022 History of Present illness Narrative PT HERE FOR 3RD COVID VACCINE. VACCINE ADMINISTERED INTO LEFT ARM. TOLERATED WELL. PT OBSERVED FOR 10 MINUTES TO MONITOR FOR VACCINE REACTIONS. NO REACTIONS NOTED. PT AMBULATORY TO EXIT. documented in this encounter [facility] 01-19-2022 Instructions Liliya Lara MD - 01/19/2022 4:39 PM EST Problem List Items Addressed This Visit Cardiovascular and Mediastinum CAD (coronary artery disease), [place] coronary artery Relevant Medications bumetanide (BUMEX) 0.5 [...] Most normal results will be available through [employer] however if abnormal, you will be notified. [...] look into their status. Customer Service/Billing Questions: [phone] MyChart Assistance: [phone] or [phone] Financial Assistance: [phone] or [phone] documented in this encounter [facility] 01-19-2022 Evaluation + Plan note Associated Problem(s): Bilateral shoulder bursitis Corticosteroid injections administered today [facility] 01-19-2022 Miscellaneous Notes Associated Problem(s): Bilateral shoulder bursitis Corticosteroid injections administered today Associated Problem(s): Edema of lower extremity Continue bumex 1mg Am and we will decrease bumex to 0.5mg PM Associated Problem(s): Encounter for gynecological examination Pap smear completed Will test for g/c/trichominosis documented in this encounter [facility] 01-19-2022 Evaluation + Plan note Associated Problem(s): Edema of lower extremity Continue bumex 1mg Am and we will decrease bumex to 0.5mg PM [facility] 01-19-2022 Evaluation + Plan note Associated Problem(s): Encounter for gynecological examination Pap smear completed Will test for g/c/trichominosis [facility] 01-19-2022 History of Present illness Narrative Subjective [...] Hair loss Headache Heart disease Hyperlipidemia Hypertension VA, old Migraine 12/25/2020 Myocardial infarct (HCC) PT [...] Penicillins Iodine And Iodide Containing Products Unknown Diopfevf-Catqzzepu-Lxabgluqdh rash and itching Adhesive Itching and Rash Plastic bandaids Neosporin (Tmn-Bmu-Bvlym) [Lzxumblw-Muhrgnvetg-Gcypbhrkv] Rash Ointment only Patient's Medications New Prescriptions [...] lb). Physical Exam Exam conducted with a plant maintenance supervisor present. Genitourinary: Exam position: Lithotomy position. Vagina: [...] Assessment/Plan: Problem List CAD (coronary artery disease), [place] coronary artery Relevant Medications bumetanide (BUMEX) 0.5 [...] the medications. Liliya Lara MD [facility] [address] [facility] [address] [facility] [address] Dept: [phone] documented in this encounter [facility] 01-16-2022 Evaluation + Plan note Associated Problem(s): Symptomatic bradycardia S/p LHC and ECHO on 12/28/21 and 12/25/21 respectively Continues to have episodes of lightheadedness She was evaluated by cardiology- at this time medical therapy was indicated [facility] 01-16-2022 Miscellaneous Notes Associated Problem(s): Symptomatic bradycardia [...] PCI and CABG (SVG-OM1, ROSAS-OM2, SVG-OM3) Recent [facility] 12/28/21 showed: SVG-OM1 graft known to be occluded, CONDUCTOR/ENGINEER of the mid left circumflex stent and [...] amenable for mammogram documented in this encounter [facility] 01-16-2022 Evaluation + Plan note Associated Problem(s): Migraine nurtec prescribed however due to pending authorizations, she has not received this medication Advised pt that it was approved today and she should have this available Previously has used imitrex-this was discontinued due to underlying heart disease and she also states that this did not control her symptoms [facility] 01-16-2022 Evaluation + Plan note Associated Problem(s): 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 At this time continue medical therapy On antianginal isosorbide nitrate Dr. Woo- cardiology is following [facility] 01-16-2022 Evaluation + Plan note Associated Problem(s): Encounter for screening mammogram for breast cancer Has not had mammogram >10 years Discussed preventative measures w/ patient She was amenable for mammogram [facility] 01-13-2022 History of Present illness Narrative Subjective [...] frequently. We discussed pt reaching out to [place] [facility] to discuss life alert. CAD [...] Hair loss Headache Heart disease Hyperlipidemia Hypertension [place], old Migraine 12/25/2020 Myocardial infarct (HCC) PT [...] Penicillins Iodine And Iodide Containing Products Unknown Wveyjnyt-Bvigdygbr-Qnhvvbwdlt rash and itching Adhesive Itching and Rash Plastic bandaids Neosporin (Vpt-Hqo-Oozof) [Okuungre-Ihzaikzqpy-Dbawrppco] Rash Ointment only Patient's Medications New Prescriptions [...] showed: SVG-OM1 graft known to be occluded, CONDUCTOR/ENGINEER of the mid left circumflex stent and [...] of the medications. Liliya Lara MD [facility] [address] [place] [id number] Dept: [phone] documented in this encounter [facility] 12-30-2021 History of Present illness Narrative APPEAL PAPERWORK RECEIVED. THIS NURSE DID GO AHEAD AND FILL OUT AND FAX BACK TO NUMBER ON DOCUMENTATION ([phone]). DOCUMENTATION SCANNED INTO CHART. SPOKE WITH DR. LARA. DR. LARA REPORTS THAT SHE COMPLETED APPEAL AND THE LAST OFFICE NOTE NEEDS FAXED. LAST OFFICE NOTE (12/15/21) FAXED TO [facility] APPEALS DEPT AT NUMBER PROVIDED BY PROVIDER ([phone]). SPOKE WITH DR. LARA. DR. LARA REPORTS THAT SHE COMPLETED APPEAL AND THE LAST OFFICE NOTE NEEDS FAXED. LAST OFFICE NOTE (12/15/21) FAXED TO [facility] DEPT AT NUMBER PROVIDED BY PROVIDER ([phone]). SPOKE WITH DR. LARA. DR. LARA REPORTS THAT SHE COMPLETED APPEAL AND THE LAST OFFICE NOTE NEEDS FAXED. LAST OFFICE NOTE (12/15/21) FAXED TO [facility] DEPT AT NUMBER PROVIDED BY PROVIDER ([phone]). NO PAPEWRORK FOR APPEAL RECEIVED. PA ATTEMPTED AGAIN THROUGH [facility] Fax number for appeal is [phone] DOCUMENTATION RECEIVED. PA RE-ATTEMPT CANCELLED THROUGH COVER [...] [facility]. documented in this encounter [facility] 12-30-2021 History of Present illness Narrative SPOKE WITH DR. LARA. DR. LARA REPORTS THAT SHE COMPLETED APPEAL AND THE LAST OFFICE NOTE NEEDS FAXED. LAST OFFICE NOTE (12/15/21) FAXED TO [facility] DEPT AT NUMBER PROVIDED BY PROVIDER ([phone]). SPOKE WITH DR. LARA. DR. LARA REPORTS THAT SHE COMPLETED APPEAL AND THE LAST OFFICE NOTE NEEDS FAXED. LAST OFFICE NOTE (12/15/21) FAXED TO [facility] DEPT AT NUMBER PROVIDED BY PROVIDER ([phone]). SPOKE WITH DR. LARA. DR. LARA REPORTS THAT SHE COMPLETED APPEAL AND THE LAST OFFICE NOTE NEEDS FAXED. LAST OFFICE NOTE (12/15/21) FAXED TO [facility] DEPT AT NUMBER PROVIDED BY PROVIDER ([phone]). NO PAPEWRORK FOR APPEAL RECEIVED. PA ATTEMPTED AGAIN THROUGH [facility] Fax number for appeal is [phone] DOCUMENTATION RECEIVED. PA RE-ATTEMPT CANCELLED THROUGH COVER [...] [facility]. documented in this encounter [facility] 12-30-2021 History of Present illness Narrative SPOKE WITH DR. LARA. DR. LARA REPORTS THAT SHE COMPLETED APPEAL AND THE LAST OFFICE NOTE NEEDS FAXED. LAST OFFICE NOTE (12/15/21) FAXED TO [facility] DEPT AT NUMBER PROVIDED BY PROVIDER ([phone]). NO PAPEWRORK FOR APPEAL RECEIVED. PA ATTEMPTED AGAIN THROUGH [facility] Fax number for appeal is [phone] DOCUMENTATION RECEIVED. PA RE-ATTEMPT CANCELLED THROUGH COVER [...] [facility]. documented in this encounter [facility] 12-29-2021 Instructions Liliya Lara MD - 12/29/2021 4:29 PM EST Problem List Items Addressed This Visit Other Allergic reaction 2/2 to contrast dye used in L heart cath yesterday prednisone X5 days Benadryl [id number]-b4p Pt following up with her steamfitter tomorrow Alarming/Red flag signs and symptoms discussed [...] Most normal results will be available through [employer] however if abnormal, you will be notified. [...] look into their status. Customer Service/Billing Questions: [phone] MyChart Assistance: [phone] or [phone] Financial Assistance: [phone] or [phone] documented in this encounter [facility] 12-29-2021 Miscellaneous Notes Associated Problem(s): Allergic reaction 2/2 to contrast dye used in L heart cath yesterday prednisone X5 days Benadryl s0i-r4b Pt following up with her steamfitter tomorrow Alarming/Red flag signs and symptoms discussed with the patient, patient instructed to seek medical attention at ED RL if any such symptoms develop. Pt expressed understanding. documented in this encounter [facility] 12-29-2021 History of Present illness Narrative Subjective [...] Hair loss Headache Heart disease Hyperlipidemia Hypertension [place], old Myocardial infarct (HCC) PT STATES SHE [...] Penicillins Iodine And Iodide Containing Products Unknown Zqdarlez-Vniovmelu-Fodiafgqrs rash and itching Adhesive Itching and Rash Plastic bandaids Neosporin (Gwh-Kao-Adfwb) [Qdwomeih-Spatniiues-Ycssljcym] Rash Ointment only Patient's Medications New Prescriptions [...] heart cath yesterday prednisone X5 days Benadryl j5u-w5d Pt following up with her steamfitter tomorrow Alarming/Red flag signs and symptoms discussed [...] the medications. Liliya Lara MD [facility] [address] [facility] [address] [facility] [address] Dept: [phone] documented in this encounter [facility] 12-29-2021 History of Present illness Narrative NO PAPEWRORK FOR APPEAL RECEIVED. PA ATTEMPTED AGAIN THROUGH [facility] Fax number for appeal is [phone] DOCUMENTATION RECEIVED. PA RE-ATTEMPT CANCELLED THROUGH COVER [...] [facility]. documented in this encounter [facility] 12-28-2021 History of Present illness Narrative Fax number for appeal is [phone] DOCUMENTATION RECEIVED. PA RE-ATTEMPT CANCELLED THROUGH COVER [...] [facility]. documented in this encounter [facility] 12-24-2021 History of Present illness Narrative DOCUMENTATION [...] [facility]. documented in this encounter [facility] 12-22-2021 History of Present illness Narrative [employer] DENIED COVERAGE. REQUESTING ALTERNATIVE OF NARATRIPTAN OR RIZATRIPTAN. PA INITIATED FOR [employer] THROUGH [facility]. documented in this encounter [facility] 12-17-2021 Instructions Liliya Lara MD - 12/17/2021 [...] Most normal results will be available through [employer] however if abnormal, you will be notified. [...] look into their status. Customer Service/Billing Questions: [phone] [employer] Assistance: [phone] or [phone] Financial Assistance: [phone] or [phone] documented in this encounter [facility] 12-17-2021 Miscellaneous Notes Associated Problem(s): Vertigo Improved [...] of this medication documented in this encounter [facility] 12-17-2021 Miscellaneous Notes Associated Problem(s): Vertigo Improved [...] of this medication documented in this encounter [facility] 12-15-2021 History of Present illness Narrative Subjective [...] is also present Patient was transferred to [facility] yesterday for her symptoms. Unfortunately she left [...] time. She states she spoke to her steamfitter who will schedule a follow up appointment [...] Hair loss Headache Heart disease Hyperlipidemia Hypertension [place], old Myocardial infarct (HCC) PT STATES SHE [...] Penicillins Iodine And Iodide Containing Products Unknown Munssull-Lifcegobp-Qgasrrczlr rash and itching Adhesive Itching and Rash Plastic bandaids Neosporin (Zes-Bgn-Xycna) [Ncpycbgp-Biwhnpjtmc-Zjgmadcaz] Rash Ointment only Patient's Medications New Prescriptions [...] the medications. Liliya Lara MD [facility] [address] [facility] [address] [facility] [address] Dept: [phone] documented in this encounter [facility] 12-15-2021 History of Present illness Narrative Subjective [...] is also present Patient was transferred to [facility] yesterday for her symptoms. Unfortunately she left [...] time. She states she spoke to her steamfitter who will schedule a follow up appointment [...] Hair loss Headache Heart disease Hyperlipidemia Hypertension [place], old Myocardial infarct (HCC) PT STATES SHE [...] Penicillins Iodine And Iodide Containing Products Unknown Zndbieir-Fceuucmyp-Eqoyfandsk rash and itching Adhesive Itching and Rash Plastic bandaids Neosporin (Auo-Szz-Spwaa) [Oetjfjwj-Ilfkkfebgt-Sstwieddd] Rash Ointment only Patient's Medications New Prescriptions [...] effects of the medications. Liliya Lara MD [facility] [address] [facility] [address] [facility] [address] Dept: [phone] documented in this encounter [facility] 11-19-2021 Miscellaneous Notes Pharmacy to notify pt [...] let pt know it was sent to [facility] ----- Message from Shannan Reaves sent at 11/12/2021 5:27 PM EST ----- Regarding: rx request Contact: self Pt calls frustrated saying she doesn't understand why her trazodone rx isnt being sent in. I told her it says 11/10/21 [facility] received it. PT saying [facility] never got it , could you send it to the local pharmacy please. traZODone (DESYREL) 100 MG [id number] dtldaz093/28/2021 Sig - Route: Take 2 (two) tablets (200 mg total) by mouth nightly . - Oral Class: No Print Pt call back [phone] documented in this encounter [facility] 11-16-2021 Miscellaneous Notes RECEIVED DOCUMENTATION FROM [facility] [...] let pt know it was sent to [facility] ----- Message from Shannan Reaves sent at 11/12/2021 5:27 PM EST ----- Regarding: rx request Contact: self Pt calls frustrated saying she doesn't understand why her trazodone rx isnt being sent in. I told her it says 11/10/21 [facility] mail order received it. PT saying [facility] never got it , could you send it to the local pharmacy please. traZODone (DESYREL) 100 MG [id number] ylqvnq468/28/2021 Sig - Route: Take 2 (two) tablets (200 mg total) by mouth nightly . - Oral Class: No Print Pt call back [phone] documented in this encounter [facility] 11-10-2021 Miscellaneous Notes ----- Message from Rosanne Gonsales sent at 11/10/2021 11:17 AM EST ----- Regarding: Rx Refill Contact: oniel [phone] MEDICATION REFILL REQUEST: PCP: Liliya Lara MD [...] preferred pharmacy listed below? Yes Preferred pharmacies: [facility] [address] AT Portal to [place] [address] [address] [facility] [address] Pt Call Back Number Work Phone Not on file. Patient call back message sent to the primary care clinical pool. Rosanne Gonsales ----- Message from Rosanne Gonsales sent at 11/10/2021 11:17 AM EST ----- Regarding: Rx Refill Contact: oniel [phone] MEDICATION REFILL REQUEST: PCP: Liliya Lara MD [...] preferred pharmacy listed below? Yes Preferred pharmacies: [facility] - [facility] [address] AT Portal to [facility] Sites [address] [place] [address] Pt Call Back Number Work Phone Not on file. Patient call back message sent to the primary care clinical pool. Rosanne Gonsales documented in this encounter [facility] 11-07-2021 Instructions Liliya Lara MD - 11/07/2021 6:53 PM EST Problem List Items Addressed This Visit Cardiovascular and Mediastinum CAD (coronary artery disease), [place] coronary artery Status post bypass graft. Currently [...] Most normal results will be available through [employer] however if abnormal, you will be notified. [...] look into their status. Customer Service/Billing Questions: [phone] [employer] Assistance: [phone] or [phone] Financial Assistance: [phone] or [phone] documented in this encounter [facility] 11-07-2021 Miscellaneous Notes Associated Problem(s): CAD (coronary artery disease), [place] coronary artery Status post bypass graft. Currently [...] improve as anticipated. documented in this encounter [facility] 11-03-2021 History of Present illness Narrative Subjective [...] episode depressed (HCC) CAD (coronary artery disease), [place] coronary artery Degeneration of lumbar intervertebral disc [...] Penicillins Iodine And Iodide Containing Products Unknown Piwzklww-Cduodnolo-Dbdfmpdmnf rash and itching Adhesive Itching and Rash Plastic bandaids Neosporin (Mae-Pjb-Yzdwb) [Bvazmhbq-Krghpoaoyw-Mdtcvmqvx] Rash Ointment only Outpatient Medications as of [...] Cardiovascular and Mediastinum CAD (coronary artery disease), [place] coronary artery Status post bypass graft. 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 CPT Code 04422 Low 39111 Moderate 24282 High History 0 1-2 3+ Comorbidities: anxiety, [...] impairments result in the following functional limitations: legal aid, functional mobility, walking, stairs, recreational activities and [...] week Duration: 6 weeks Interventions: Therapeutic Exercise (02261), Neuromuscular Re-Education (34538), Manual Therapy (37942), Gait Training (63023), Hot/Cold Pack (25652) and Vasopneumatic (66503) Rehab Potential: good Suicide Screen Signs and [...] and sensitivity. Dario Balderas PT State License, [id number] documented in this encounter [facility] documented as of this encounter (statuses as of 02/17/2022) [address] History of Past illness Narrative* Problem Noted Date Resolved Date Post-operative state 02/11/2010 01/16/2015 documented as of this encounter (statuses as of 08/12/2022) [address] History of Past illness Narrative* Problem Noted Date Resolved Date Post-operative state 02/11/2010 01/16/2015 documented as of this encounter (statuses as of 10/25/2022) [address] History of Past illness Narrative* Problem Noted Date Resolved Date Post-operative state 02/11/2010 01/16/2015 documented as of this encounter (statuses as of 11/03/2022) [address] History of Past illness Narrative* Problem Noted Date Resolved Date Post-operative state 02/11/2010 01/16/2015 documented as of this encounter (statuses as of 11/03/2022) [address] History of Past illness Narrative* Problem Noted Date Resolved Date Post-operative state 02/11/2010 01/16/2015 documented as of this encounter (statuses as of 04/28/2023) [address] History of Past illness Narrative* Problem Noted Date Diagnosed Date Resolved Date Post-operative state 02/11/2010 015 documented as of this encounter (statuses as of 08/10/2023) [address] History of Past illness Narrative* Problem Noted Date Diagnosed Date Resolved Date Post-operative state 02/11/2010 015 documented as of this encounter (statuses as of 08/30/2023) [place] [address] History of Past illness Narrative* Problem Noted Date Diagnosed Date Resolved Date Post-operative state 02/11/2010 015 documented as of this encounter (statuses as of 09/02/2023) [place] [address] History of Past illness Narrative* Problem Noted Date Diagnosed Date Resolved Date Post-operative state 02/11/2010 015 documented as of this encounter (statuses as of 09/14/2023) [address] History of Past illness Narrative* Problem Noted Date Diagnosed Date Resolved Date Post-operative state 02/11/2010 015 documented as of this encounter (statuses as of 09/20/2023) [address] History of Past illness Narrative* Problem Noted Date Diagnosed Date Resolved Date Post-operative state 02/11/2010 015 documented as of this encounter (statuses as of 09/21/2023) [facility] History of Past illness Narrative* Problem Noted Date Diagnosed Date Resolved Date Post-operative state 02/11/2010 015 documented as of this encounter (statuses as of 09/22/2023) [place] [address] History of Past illness Narrative* Problem Noted Date Diagnosed Date Resolved Date Post-operative state 02/11/2010 015 documented as of this encounter (statuses as of 09/28/2023) [place] [address] History of Past illness Narrative* Problem Noted Date Diagnosed Date Resolved Date Post-operative state 02/11/2010 015 documented as of this encounter (statuses as of 10/25/2023) [address] History of Past illness Narrative* Problem Noted Date Diagnosed Date Resolved Date Post-operative state 02/11/2010 015 documented as of this encounter (statuses as of 10/27/2023) [facility] Valgus deformity of foot, right- Primary Metatarsus adductus of right foot [facility] Diagnosis Valgus deformity of foot, right Metatarsus adductus of right foot [facility]* Diagnosis Memory problem- Primary Memory loss Insomnia, unspecified type Acute midline low back pain without sciatica Coronary artery disease involving [place] coronary artery of [place] heart with other form of angina pectoris (HCC) [facility] Diagnosis Insomnia, unspecified type [facility]* Diagnosis Insomnia, unspecified type [facility] Diagnosis Insomnia, unspecified type [facility] Diagnosis Insomnia, unspecified type Coronary artery disease involving [place] coronary artery of [place] heart with other form of angina pectoris (HCC) [facility]* Diagnosis Primary osteoarthritis of knee, unspecified laterality- Primary Osteoporosis, unspecified osteoporosis type, unspecified pathological fracture presence [facility] Diagnosis Insomnia, unspecified type Coronary artery disease involving [place] coronary artery of [place] heart with other form of angina pectoris [...] Bilateral shoulder bursitis Coronary artery disease involving [place] coronary artery of [place] heart with other form of angina pectoris (HCC) Edema of lower extremity [facility]* Diagnosis Need for COVID-19 vaccine- Primary [facility]* Diagnosis Coronary artery disease involving [place] coronary artery of [place] heart with other form of angina pectoris (HCC)- Primary Bipolar disorder, most recent episode depressed (HCC) Bilateral shoulder bursitis Intractable migraine without status migrainosus, unspecified migraine type Essential hypertension Unspecified essential hypertension Osteoporosis, unspecified osteoporosis type, unspecified pathological fracture presence Hypercholesterolemia Pure hypercholesterolemia [facility]* Diagnosis Anxiety- Primary Anxiety state, unspecified [facility] Financial difficulties- Primary Inadequate material resources Anxiety Anxiety state, unspecified Arm skin lesion, right Unspecified disorder of skin and subcutaneous tissue [facility] Diagnosis Bilateral shoulder bursitis- Primary [facility] Diagnosis Anxiety- Primary Anxiety state, unspecified Coronary artery disease involving [place] coronary artery of [place] heart with other form of angina pectoris (HCC) Bilateral shoulder bursitis Bipolar disorder, most recent episode depressed ([facility]) [facility] Degeneration of lumbar intervertebral disc- Primary Degeneration of lumbar or lumbosacral intervertebral disc [facility] Diagnosis Left hip pain- Primary Pain in joint, pelvic region and thigh Bilateral shoulder bursitis Bipolar disorder, most recent episode depressed ([facility]) Essential hypertension Unspecified essential hypertension [facility] Diagnosis Coronary artery disease involving [place] coronary artery of [place] heart with other form of angina pectoris (HCC) [facility] Diagnosis Coronary atherosclerosis due to lipid rich plaque- Primary Hypertension, unspecified type Sinus bradycardia Other specified cardiac dysrhythmias Beta-cristiana intolerance Other drug allergy S/P CABG x 3 Postsurgical aortocoronary bypass status Mixed hyperlipidemia S/P angioplasty with stent Other postprocedural status [facility] Diagnosis Degeneration of lumbar intervertebral disc- Primary Degeneration of lumbar or lumbosacral intervertebral disc [facility] Diagnosis Secondary localized osteoarthrosis of lower leg- Primary Secondary localized osteoarthrosis, lower leg [facility] Diagnosis Preop exam for internal medicine- Primary Other specified pre-operative examination Coronary artery disease involving [place] coronary artery of [place] heart with other form of angina pectoris (HCC) Insomnia, unspecified type Intractable migraine without status migrainosus, unspecified migraine type [facility] Diagnosis Coronary atherosclerosis due to lipid rich plaque- Primary Pre-operative cardiovascular examination 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) Coronary atherosclerosis of artery bypass graft S/P angioplasty with stent Other postprocedural status Chronic heart failure with preserved ejection fraction (HCC) [facility]* Diagnosis Anxiety Anxiety state, unspecified [facility] Diagnosis Anxiety- Primary Anxiety state, unspecified Insomnia, unspecified type Coronary artery disease involving [place] coronary artery of [place] heart with other form of angina pectoris ([facility]) Bipolar disorder, most recent episode depressed ([facility] [facility]) Low vitamin D level Hypercholesterolemia Pure hypercholesterolemia Therapeutic drug monitoring Encounter for therapeutic drug monitoring Vitamin D deficiency Impaired glucose tolerance in obese Other abnormal glucose Intractable migraine without aura and without status migrainosus Chronic heart failure with preserved ejection fraction ([facility]) Status post arthroscopy of left shoulder Status post arthroscopy of hip [facility] Diagnosis Rib pain- Primary Unspecified chest pain Lower extremity edema Edema documented in this encounter [facility] note* Diagnosis S/P CABG x 3- Primary Postsurgical aortocoronary bypass status Chronic heart failure with preserved ejection fraction (HCC) Coronary artery disease involving [place] coronary artery of [place] heart with other form of angina pectoris ([facility]) Preoperative cardiovascular examination Pre-operative cardiovascular examination documented in this encounter [facility] note* Diagnosis Financial difficulties- Primary Inadequate material resources Anxiety Anxiety state, unspecified Preop exam for internal medicine Other specified pre-operative examination [facility] Diagnosis S/P lumbar spine operation- Primary Other postprocedural status documented in this encounter [facility] note* Diagnosis Degeneration of lumbar intervertebral disc- Primary Degeneration of lumbar or lumbosacral intervertebral disc [facility]* Diagnosis Intractable back pain- Primary Coronary artery disease involving [place] coronary artery of [place] heart with other form of angina pectoris ([facility]) Anxiety Anxiety state, unspecified documented in this encounter [facility] note* Diagnosis Degeneration of lumbar intervertebral disc- Primary Degeneration of lumbar or lumbosacral intervertebral disc [facility]* Diagnosis Degeneration of lumbar intervertebral disc- Primary Degeneration of lumbar or lumbosacral intervertebral disc documented [facility]* Diagnosis S/P lumbar fusion- Primary Arthrodesis status documented in this encounter [facility] note* Diagnosis Chronic low back pain, unspecified back pain laterality, unspecified whether sciatica present- Primary Restless leg Restless legs syndrome (RLS) Essential hypertension Unspecified essential hypertension Anxiety Anxiety state, unspecified Dermatitis Contact dermatitis and other eczema, due to unspecified cause documented in this encounter [facility] note* Diagnosis S/P lumbar fusion Arthrodesis status documented in this encounter [facility] note* Diagnosis Sacroiliac joint pain- Primary Disorders of sacrum documented in this encounter [facility] note* Diagnosis Sacroiliac joint pain- Primary Disorders of sacrum documented in this encounter [facility] note* Diagnosis Sacroiliitis (HCC) Sacroiliitis, not elsewhere classified documented in this encounter [facility] note* Diagnosis Sacroiliitis (HCC)- Primary Sacroiliitis, not elsewhere classified Chronic pain of multiple sites Generalized pain S/P lumbar fusion Arthrodesis status documented [facility] this 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 Anxiety Financial difficulties Liliya Lara MD [address] [place] [address] Referral ID Status Reason Start Date Expiration Date Visits Requested Visits Authorized [id number] Pending Review Specialty Services Required/Pat ient's Best Interest 05/04/2023 05/03/2024 1 1 Scheduling 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 [facility] for referral (narrative)* Diagnostic Procedure Only (Routine) - Pending Review Specialty Diagnoses / Procedures Referred By Miriam t Referred To Contact XR IMAGING Diagnoses S/P lumbar fusion Procedures XR LUMBAR MOTION 4V AP/LAT/ FLEX/EXT RADEX SPINE LUMBOSACRAL MINIMUM 4 VIEWS Walt Carrion APRN.EDUCATIONAL COORDINATOR [address] [place], [place] [id number] Xr Imaging [place] [address] Referral ID Status Reason Start Date Expiration Date Visits Requested Visits Authorized [id number] Pending Review Auto-Generat ed Referral 08/09/2023 09/07/2024 1 1 [facility] for referral (narrative)* Diagnostic Procedure Only (Routine) - Closed Specialty Diagnoses / Procedures Referred By Contac t Referred To Contact XR IMAGING Diagnoses Sacroiliitis (HCC) Procedures XR SACRUM/COCCYX 3V AP/LAT RADEX SACRUM & COCCYX MINIMUM 2 VIEWS Walt Carrion APRN.CNP [address] [place] [address] Xr Imaging [place] [address] Referral ID Status Reason Start Date Expiration Date V isits Requested Visits Authorized [id number] Closed Auto-Generate d Referral 10/24/2023 11/22/2024 1 1 [facility] for referral (narrative)* Diagnostic Procedure Only (Routine) - Closed Specialty Diagnoses / Procedures Referred By Contac t Referred To Contact XR IMAGING Diagnoses Sacroiliitis (HCC) Procedures XR SACRUM/COCCYX 3V AP/LAT RADEX SACRUM & COCCYX MINIMUM 2 VIEWS Walt Carrion APRN.EDUCATIONAL COORDINATOR [address] [place] [phone] Xr Imaging [place] [address] Referral ID Status Reason Start Date Expiration Date V isits Requested Visits Authorized [id number] Closed Auto-Generate d Referral 10/24/2023 11/22/2024 1 1 * Consult, Test, Treat (Routine) - Closed Specialty Diagnoses / Procedures Referred By Contac t Referred To Contact Rheumatology Diagnoses Chronic pain of multiple sites Procedures CONSULT TO RHEUM/IMMUN DISEASE OFFICE/OUTPATIENT NEW HIGH MDM 60-74 MINUTES Walt Carrion APRN.CNP [address] [place] [address] Referral ID Status Reason Start Date Expiration Date V isits Requested Visits Authorized [id number] Closed PCP Requested Referral 10/24/2023 10/23/2024 1 1 * Consult, Test, Treat (Routine) - Pending Review Specialty Diagnoses / Procedures Referred By Contac t Referred To Contact Sp[facility] [place] Diagnoses Chronic pain of multiple sites Sacroiliitis (HCC) S/P lumbar fusion Procedures CONSULT TO [facility] ([facility]) OFFICE/OUTPATIENT NEW HIGH MDM 60-74 MINUTES Walt Carrion APRN.EDUCATIONAL COORDINATOR [address] [place] [address] Referral ID Status Reason Start Date Expiration Date Visits Requested Visits Authorized [id number] Pending Review PCP Requested Referral 3 10/23/2024 1 1 [facility] for visit Narrative* Diagnostic Procedure Only (Routine) - Closed Specialty Diagnoses / Procedures Referred By Contac t Referred To Contact XR IMAGING Diagnoses S/P lumbar fusion Procedures XR LUMBAR MOTION 4V AP/LAT/ FLEX/EXT RADEX SPINE LUMBOSACRAL MINIMUM 4 VIEWS Walt Carrion APRN.EDUCATIONAL COORDINATOR [address] [place] [address] Xr Imaging [place] [address] Referral ID Status Reason Start Date Expiration Date V isits Requested Visits Authorized [id number] Closed Auto-Generate d Referral 08/09/2023 09/07/2024 1 1 [facility] for visit Narrative* Outpatient Procedure (Routine) - Closed Specialty Diagnoses / Procedures Referred By Contac t Referred To Contact Spine Health / SPINE Diagnoses Dx: Sacroiliitis (HCC) [M46.1 (ICD-10-CM)] Procedures Intra-articular Sacroiliac joint injection: Bilateral CPT 92739 Tommy Brennan MD [address] [place] [address] Spine Med Main [address] [place] [address] Referral ID Status Reason Start Date Expiration Date Visits Re quested Visits Authorized [id number] Closed 09/06/2023 11/13/2023 [address] [facility] Summary Purpose Family History No Family [...] FoundDocuments on File Type Date Recorded Patient Financial Accountant Expl anation Advance Directives and Living Will Documents on File Type Date Recorded Patient Financial Accountant Expl anation Advance Directives and Living Will Documents on File Type Date Recorded Patient Financial Accountant Expl anation Advance Directives and Livin g Will 02/05/2021 7:46 AM Documents on File Type Date Recorded Patient Financial Accountant Expl anation Advance Directives and Livin g Will 02/05/2021 7:46 AM Documents on File Type Date Recorded Patient Financial Accountant Expl anation Advance Directives and Livin g Will 12/14/2021 5:10 PM Documents on File Type Date Recorded Patient Financial Accountant Expl anation Advance Directives and Livin g Will 12/14/2021 5:10 PM Documents on File Type Date Recorded Patient Financial Accountant Expl anation Advance Directive(s) Advance Directive(s) 12/25/2021 4:07 PM Advance Directive(s) 12/16/2021 3:29 PM Advance Directive(s) 12/15/2021 1:10 AM Advance Directive(s) 06/10/2019 1:38 PM Advance Directive(s) 07/12/2009 2:12 PM Documents on File Type Date Recorded Patient Financial Accountant Expl anation Advance Directive(s) 07/12/2009 2:12 PM Documents on File Type Date Recorded Patient Financial Accountant Expl anation Advance Directive(s) 07/12/2009 2:12 PM Reason for Referral Status Reason Specialty Diagnoses / Procedures Referre d By Contact Referred To Contact Closed Renee Sierra, EDUCATIONAL COORDINATOR [address] [phone] Status Reason Specialty Diagnoses / Procedures Referred By Contact Referred To Contact Authorized Service Not Available Internally Diagnoses Hypertension, unspecified type Right atrial enlargement Bilateral leg edema Procedures Home sleep test Renee Sierra EDUCATIONAL COORDINATOR [address] [place] [phone] EXTERNAL PLACE OF SERVICE NOT IN SYSTEM Specialty Diagnoses / Procedures Referred By Contac t Referred To Contact Rehabilitation Diagnoses Valgus deformity of foot, right Metatarsus adductus of right foot Sofya Dale MD [address] [place] [address] [facility] [place] [address] [place] [address] Referral ID Status Reason Start Date Expiration Date V isits Requested Visits Authorized [id number] Pending Review 10/20/2021 10/20/2022 1 1 Specialty Diagnoses / Procedures Referred By Contac t Referred To Contact Neurology Diagnoses Memory problem Liliya Lara MD [address] [address] Ed Redmond MD [address] [address] Referral ID Status Reason Start Date Expiration Date Visits Requested Visits Authorized [id number] Pending Review Specialty Services Required/Pat ient's Best Interest 11/03/2022 1 1 Specialty Diagnoses / Procedures Referred By Contac t Referred To Contact Radiology Diagnoses Encounter for screening mammogram for breast cancer Procedures Mammography Screening Emir Bilateral Liliya Lara MD [address] [address] [place] [address] Referral ID Status Reason Start Date Expiration Date V isits Requested Visits Authorized [id number] Authorized 01/13/2022 01/13/2023 1 1 Specialty Diagnoses / Procedures Referred By Contac t Referred To Contact Radiology Diagnoses Bilateral shoulder bursitis Osteoporosis, unspecified osteoporosis type, unspecified pathological fracture presence Procedures XR Bone Density DEXA Axial Liliya Lara MD [address] [place] [address] [facility] [address] [place] [address] Referral ID Status Reason Start Date Expiration Date V isits Requested Visits Authorized [id number] Authorized 04/27/2022 04/27/2023 1 1 Specialty Diagnoses / Procedures Referred By Contac t Referred To Contact Behavioral Health Diagnoses Anxiety Liliya Lara MD [address] [address] Laura Galindo MSW LISW-S Referral ID Status Reason Start Date Expiration Date V isits Requested Visits Authorized [id number] Closed Specialty Services Required/Dayanna ent's Best Interest 05/25/2022 05/25/2023 1 1 Specialty Diagnoses / Procedures Referred By Contac t 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 Diagnoses Financial difficulties Liliya Lara MD [address] [place] [address] Referral ID Status Reason Start Date Expiration Date Visits Requested Visits Authorized [id number] Pending Review Specialty Services Required/Pat ient's Best Interest 05/25/2022 05/25/2023 1 1 Specialty Diagnoses / Procedures Referred By Contac t Referred To Contact Behavorist (Outpatient Social Work) Diagnoses Anxiety Insomnia, unspecified type Liliya Lara MD [address] [place] [address] Laura Galindo MSW LISW-S Referral ID Status Reason Start Date Expiration Date V isits Requested Visits Authorized [id number] Closed Specialty Services Required/Dayanna ent's Best Interest 01/17/2023 01/17/2024 1 1 Specialty Diagnoses / Procedures Referred By Contact Referred To Contact Nurse Practitioner / Psychiatry Diagnoses Anxiety Bipolar disorder, most recent episode depressed (HCC) Liliya Lara MD [facility] [place] [address] Precious Argueta, EDUCATIONAL COORDINATOR [address] [place] [address] Referral ID Status Reason Start Date Expiration Date V isits Requested Visits Authorized [id number] Authorized 01/17/2023 01/17/2024 1 1 Specialty Diagnoses / Procedures Referred By Contac t Referred To Contact Liliya Lara MD [facility] [place] [address] Referral ID Status Reason Start Date Expiration Date Visits Re quested Visits Authorized [id number] Denied 1 1 Specialty Diagnoses / Procedures Referred By Contac t Referred To Contact Radiology Diagnoses Degeneration of lumbar intervertebral disc Procedures MR Lumbar Spine Without Contrast Liliya Lara MD [address] [place] [address] Referral ID Status Reason Start Date Expiration Date V isits Requested Visits Authorized [id number] New Request 06/22/2023 06/21/2024 1 1 Specialty Diagnoses / Procedures Referred By Contac t Referred To Contact Neurological Surgery / Neurosurgery Diagnoses Chronic low back pain, unspecified back pain laterality, unspecified whether sciatica present Liliya Lara MD [address] [address] Rigo Lundberg DO [address] [facility] [address] [place] [address] Referral ID Status Reason Start Date Expiration Date V isits Requested Visits Authorized [id number] Closed Specialty Services Required/Dayanna ent's Best Interest 08/01/2023 07/31/2024 1 1 Instructions * Patient Instructions* Renee Sierra, EDUCATIONAL COORDINATOR - 02/17/2021 2:31 PM EDT Problem List Items Addressed This Visit Cardiovascular and Mediastinum Migraine Relevant Medications mdybvbrycr-fjvkomsztdswy-[id number] (FIORICET, ESGIC) 50-325-40 mg per capsule Other [...] look into their status. Customer Service/Billing Questions: [phone] [employer] Assistance: [phone] or [phone] Financial Assistance: [phone] or [phone] documented in this encounter* Patient Instructions* Renee [...] look into their status. Customer Service/Billing Questions: [phone] MyChart Assistance: [phone] or [phone] Financial Assistance: [phone] or [phone] documented in this encounter* Patient Instructions* Renee [...] look into their status. Customer Service/Billing Questions: [phone] MyChart Assistance: [phone] or [phone] Financial Assistance: [phone] or [phone] documented in this encounter History of Present Illness * Renee Sierra CNP - 12/25/2020 2:25 PM EST Subjective Patient ID: Oniel Norman is a 60 y.o. female. Patient is here today to establish care, she is new to this provider and new to this practice. Sherlyn was previously followed by Dr. Walt Caban through [facility]. No prior records available at this time. [...] states she has unusual symptoms with her VA's and they have prescribed percocet in the past. She is on 30 mg of Imdur. This was prescribed through her prior PCP. CAD: [facility] 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 She has followed this provider since 1999, she states she sees this specialist yearly. She states she has had 10 VA's with 10 cardiac caths. She states she [...] MG TABS 1 tablet as needed OXYCODONE-ACETAMINOPHEN [id number] Walt Winterms HALEY 05-02-2018 [facility] ([id number]) TIZANIDINE (ZANAFLEX) 4 MG CAPSULE Take by [...] EST Telephone Visit Via Phone Call [facility] [address] [facility] [address] [facility] [phone] Telephone Visit [facility] 01/12/2021 Renee Sierra CNP Provider Location: [address] [place] [address] Patient Location Structural Draftsman: None Patient Location: Patient's Home Patient: Oniel [...] there are inherent diagnostic limitations compared to ieif-zf-bodh evaluations. We elected toproceed with the telephone [...] her heart function, leg edema, and insomnia. Jal 3 Echocardiogram 02/05/2021: Summary 1. Mildly enlarged [...] and problem list. Patient's Medications New Prescriptions [id number] (FIORICET, ESGIC) 50-325-40 MG PER CAPSULE Take [...] Visit Cardiovascular and Mediastinum Migraine Relevant Medications hmvunnueqm-szqgirgbntgrd-hyugsofo (FIORICET, ESGIC) 50-325-40 mg per capsule Other [...] DATE CREATED AUTHOR AUTHOR'S ORGANIZ ATION 01/26/2019 [facility] DATE CREATED AUTHOR AUTHOR'S ORGANIZ ATION 07/13/2019 [facility] DATE CREATED AUTHOR AUTHOR'S ORGANIZ ATION 02/26/2020 [facility] DATE CREATED AUTHOR AUTHOR'S ORGANIZ ATION 02/16/2021 [facility] DATE CREATED AUTHOR AUTHOR'S ORGANIZ ATION 02/16/2022 [facility] DATE CREATED AUTHOR AUTHOR'S ORGANIZ ATION 02/27/2023 [facility] DATE CREATED AUTHOR AUTHOR'S ORGANIZ ATION 03/17/2023 [facility] DATE CREATED AUTHOR AUTHOR'S ORGANIZ ATION 05/28/2023 [facility] DATE CREATED AUTHOR AUTHOR'S ORGANIZ ATION 06/24/2023 [facility] DATE CREATED AUTHOR AUTHOR'S ORGANIZ ATION 08/02/2023 [facility] DATE CREATED AUTHOR AUTHOR'S ORGANIZ ATION 09/02/2023 [facility] DATE CREATED AUTHOR AUTHOR'S ORGANIZ ATION 09/18/2023 [facility] DATE CREATED AUTHOR AUTHOR'S ORGANIZ ATION 11/15/2023 [facility] DATE CREATED AUTHOR AUTHOR'S ORGANIZ ATION 11/28/2023 [facility] Reason for Visit (unrecogniz ed section and content) Reason Onset Date Comments Medication Refill 02/06/2021 Reason Comments Follow-up 2 week fu leg swelli ng weight gain Reason Comments Physical Therapy Specialty Diagnoses / Procedures Referred By Miriam t Referred To Contact Rehabilitation Diagnoses Valgus deformity of foot, right Metatarsus adductus of right foot Sofya Dale MD [address] [place] [address] [place] [address] [address] [place] [address] Referral ID Status Reason Start Date Expiration Date V isits Requested Visits Authorized [id number] Authorized 10/20/2021 10/20/2022 1 199 Reason Comments [...] Reason Onset Date Comments Care Coordination - [facility] 05/25/2022 Reason Comments Anxiety Reason Comments Follow-up [...] Reason Onset Date Comments Care Coordination - [facility] 02/17/2023 Reason Onset Date Comments [place] denial- [...] Procedures Intra-articular Sacroiliac joint injection: Bilateral CPT 64274 Tommy Brennan MD [address] [place] [address] Spine Med Main [address] [place] [address] Referral ID Status Reason Start Date Expiration Date Visits Re quested Visits Authorized [id number] Closed 09/06/2023 11/13/2023 1 1 Reason Comments Preparations For Procedures Recheck Reason Comments Medication Question Reason Comments Radio Main J1 Specialty Diagnoses / Procedures Referred By Contac t Referred To Contact XR IMAGING Diagnoses Sacroiliitis (HCC) Procedures XR SACRUM/COCCYX 3V AP/LAT RADEX SACRUM & COCCYX MINIMUM 2 VIEWS Walt Carrion APRN.EDUCATIONAL COORDINATOR [address] [place] [address] [place] [address] Referral ID Status Reason Start Date Expiration Date V isits Requested Visits Authorized [id number] Closed Auto-Generate d Referral 10/24/2023 11/22/2024 1 [...] Care Teams (unrecognized sec tion and content) Moth Exterminator Relationship Specialty Start Date End Date Liliya Lara MD [address] [place] [id number] PCP - General Internal Medicine 08/05/21 Moth Exterminator Relationship Specialty Start Date End Date Liliya Lara MD [address] [place] [address] PCP - General Internal Medicine 08/05/21 Moth Exterminator Relationship Specialty Start Date End Date Liliya Lara MD [address] [place] [id number] PCP - General Internal Medicine 08/05/21 Moth Exterminator Relationship Specialty Start Date End Date Liliya Lara MD [address] [place] [id number] PCP - General Internal Medicine 08/05/21 Moth Exterminator Relationship Specialty Start Date End Date Liliya Lara MD [address] [address] PCP - General Internal Medicine 08/05/21 Moth Exterminator Relationship Specialty Start Date End Date Liliya Lara MD [address] [address] PCP - General Internal Medicine 08/05/21 Moth Exterminator Relationship Specialty Start Date End Date Liliya Lara MD [address] [place] [id number] PCP - General Internal Medicine 08/05/21 Moth Exterminator Relationship Specialty Start Date End Date Liliya Lara MD [address] [address] PCP - General Internal Medicine 08/05/21 Moth Exterminator Relationship Specialty Start Date End Date Liliya Lara MD [facility] [address] [address] PCP - General Internal Medicine 08/05/21 Moth Exterminator Relationship Specialty Start Date End Date Liliya Lara MD [address] [place], [place] [phone] PCP - General Internal Medicine 08/05/21 Moth Exterminator Relationship Specialty Start Date End Date Liliya Lara MD [facility] [address] [address] PCP - General Internal Medicine 08/05/21 Moth Exterminator Relationship Specialty Start Date End Date Liliya Lara MD [facility] [place] [id number] PCP - General Internal Medicine 08/05/21 Moth Exterminator Relationship Specialty [place] [address] [place] [address] PCP - General Internal Medicine 08/05/21 Moth Exterminator Relationship Specialty Start Date End Date Liliya Lara MD [facility] [address] [address] PCP - General Internal Medicine 08/05/21 Moth Exterminator Relationship Specialty Start Date End Date Liliya Lara MD [address] [place] [id number] PCP - General Internal Medicine 08/05/21 Moth Exterminator Relationship Specialty Start Date End Date Spring, Renee [place] [address] PCP - General Family Practice 07/01/21 Nagi Wagner MD [address] [place] [address] Primary Staff Physician Cardiology 12/25/21 Moth Exterminator Relationship Specialty Start Date End Date Liliya Lara MD [address] [place] [id number] PCP - General Internal Medicine 08/05/21 Moth Exterminator Relationship Specialty Start Date End Date Liliya Lara MD [address] [place] [id number] PCP - General Internal Medicine 08/05/21 Moth Exterminator Relationship Specialty Start Date End Date Liliya Lara MD [address] [place] [id number] PCP - General Internal Medicine 08/05/21 Moth Exterminator Relationship Specialty Start Date End Date Liliya Lara MD [address] [place] [id number] PCP - General Internal Medicine 08/05/21 Moth Exterminator Relationship Specialty Start Date End Date Liliya Lara MD [address] [place] [id number] PCP - General Internal Medicine 08/05/21 Moth Exterminator Relationship Specialty Start Date End Date Liliya Lara MD [address] [place] [id number] PCP - General Internal Medicine 08/05/21 Moth Exterminator Relationship Specialty Start Date End Date Liliya Lara MD [address] [id number] PCP - General Internal Medicine 08/05/21 Moth Exterminator Relationship Specialty Start Date [place] [address] PCP - General Family Medicine 07/01/21 Nagi Wagner MD [address] [place] [address] Primary Staff Physician Cardiology 12/25/21 Moth Exterminator Relationship Specialty Start Date End Date Spring, Renee [address] [id number] PCP - General Family Medicine 07/01/21 Nagi Wagner MD [address] [place] [address] Primary Staff Physician Cardiology 12/25/21 Moth Exterminator Relationship Specialty Start Date End Date Liliya Lara MD [address] [id number] PCP - General Internal Medicine 08/05/21 Moth Exterminator Relationship Specialty Start Date End Date Liliya Lara MD [address] [id number] PCP - General Internal Medicine 11/03/22 Nagi Wagner MD [address] [place] [address] Primary Staff Physician Cardiology 12/25/21 Moth Exterminator Relationship Specialty Start Date End Date Liliya Lara MD [address] [place] [address] PCP - General Internal Medicine 11/03/22 Nagi Wagner MD [address] [id number] Primary Staff Physician Cardiology 12/25/21 Moth Exterminator Relationship Specialty Start Date End Date Liliya Lara MD [address] [id number] PCP - General Internal Medicine 08/05/21 Moth Exterminator Relationship Specialty Start Date End Date Liliya Lara MD [facility] [id number] PCP - General Internal Medicine 08/05/21 Moth Exterminator Relationship Specialty Start Date End Date Liliya Lara MD [address] [place], [place] [id number] PCP - General Internal Medicine 08/05/21 Moth Exterminator Relationship Specialty Start Date End Date Liliya Lara MD [address] [place], [place] [id number] PCP - General Internal Medicine 08/05/21 Moth Exterminator Relationship Specialty Start Date End Date Liliya Lara MD [address] [place], [place] [id number] PCP - General Internal Medicine 08/05/21 Moth Exterminator Relationship Specialty Start Date End Date Liliya Lara MD [address] [place], [place] [id number] PCP - General Internal Medicine 11/03/22 Nagi Wagner MD [address] [id number] Primary Staff Physician Cardiology 12/25/21 Moth Exterminator Relationship Specialty Start Date End Date Liliya Lara MD [address] [place] [address] PCP - General Internal Medicine 08/05/21 Sophie Andino, [facility] Diamond BrokerCpr Instructor 05/06/23 Moth Exterminator Relationship Specialty Start Date End Date Liliya Lara MD [address] [place] [address] PCP - General Internal Medicine 08/05/21 Sophie Andino, [facility] Diamond BrokerCpr Instructor 05/06/23 Moth Exterminator Relationship Specialty Start Date End Date Liliya Lara MD [address] [place] [address] PCP - General Internal Medicine 08/05/21 Sophie Andino, [facility] Diamond BrokerCpr Instructor 05/06/23 Moth Exterminator Relationship Specialty Start Date End Date Liliya Lara MD [address] [place] [address] PCP - General Internal Medicine 08/05/21 Sophie Andino, [facility] Diamond BrokerCpr Instructor 05/06/23 Moth Exterminator Relationship Specialty Start Date End Date Liliya Lara MD [address] [place] [address] PCP - General Internal Medicine 08/05/21 Sophie Andino, [facility] Diamond BrokerCpr Instructor 05/06/23 Moth Exterminator Relationship Specialty Start Date End Date Liliya Lara MD [address] [place], [place] [id number] PCP - General Internal Medicine 11/03/22 Nagi Wagner MD [address] [place] [address] Primary Staff Physician Cardiology 12/25/21 Moth Exterminator Relationship Specialty Start Date End Date Sophie Andino [employer] Diamond BrokerCpr Instructor 05/06/23 08/12/23 Moth Exterminator Relationship Specialty Start Date End Date Liliya Lara MD [address] [id number] PCP - General Internal Medicine 11/03/22 Nagi Wagner MD [address] [place] [address] Primary Staff Physician Cardiology 12/25/21 Moth Exterminator Relationship Specialty Start Date End Date Liliya Lara MD [address] [id number] PCP - General Internal Medicine 11/03/22 Nagi Wagner MD [address] [place] [address] Primary Staff Physician Cardiology 12/25/21 Moth Exterminator Relationship Specialty Start Date End Date Liliya Lara MD [address] [id number] PCP - General Internal Medicine 11/03/22 Nagi Wagner MD [address] [place] [address] Primary Staff Physician Cardiology 12/25/21 Moth Exterminator Relationship Specialty Start Date End Date Liliya Lara MD [address] [id number] PCP - General Internal Medicine 11/03/22 Nagi Wagner MD [address] [place], [place] [id number] Primary Staff Physician Cardiology 12/25/21 Moth Exterminator Relationship Specialty Start Date End Date Liliya Lara MD [facility] [place] [id number] PCP - General Internal Medicine 11/03/22 Nagi Wagner MD [address] [place], [place] [id number] Primary Staff Physician Cardiology 12/25/21 Moth Exterminator Relationship Specialty Start Date End Date Liliya Lara MD [address] [facility] [address] [id number] PCP - General Internal Medicine 11/03/22 Nagi Wagner MD [address] [place], [place] [id number] Primary Staff Physician Cardiology 12/25/21 Moth Exterminator Relationship Specialty Start Date End Date Malvin Johnson DO [address] [place] [address] PCP - General Family Medicine 10/24/23 Nagi Wagner MD [address] [place] [address] Primary Staff Physician Cardiology 12/25/21 Moth Exterminator Relationship Specialty Start Date End Date Malvin Johnson DO [address] [place] [address] PCP - General Family Medicine 10/24/23 Nagi Wagner MD [address] [place] [address] Primary Staff Physician Cardiology 12/25/21 Source Comments (unrecognize d section and content) In the event this informatio n is protected by the Federal Confidentiality of Alcohol and Drug Abuse Patient Records regulations: The Federal rules restrict any use of the information to criminally investigate or prosecute any alcohol or drug abuse patient.[facility] the event this information is protected by the Federal Confidentiality of Alcohol and Drug Abuse Patient Records regulations: The Federal rules restrict any use of the information to criminally investigate or prosecute any alcohol or drug abuse patient.[facility] CenterIn the event this information is protected by the Federal Confidentiality of Alcohol and Drug Abuse Patient Records regulations: The Federal rules restrict any use of the information to criminally investigate or prosecute any alcohol or drug abuse patient.[facility] CenterIn the event this information is protected by the Federal Confidentiality of Alcohol and Drug Abuse Patient Records regulations: The Federal rules restrict any use of the information to criminally investigate or prosecute any alcohol or drug abuse patient.[facility] CenterIn the event this information is protected by the Federal Confidentiality of Alcohol and Drug Abuse Patient Records regulations: The Federal rules restrict any use of the information to criminally investigate or prosecute any alcohol or drug abuse patient.[facility] CenterIn the event this information is protected by the Federal Confidentiality of Alcohol and Drug Abuse Patient Records regulations: The Federal rules restrict any use of the information to criminally investigate or prosecute any alcohol or drug abuse patient.[facility] CenterIn the event this information is protected by the Federal Confidentiality of Alcohol and Drug Abuse Patient Records regulations: The Federal rules restrict any use of the information to criminally investigate or prosecute any alcohol or drug abuse patient.[facility] CenterIn the event this information is protected by the Federal Confidentiality of Alcohol and Drug Abuse Patient Records regulations: The Federal rules restrict any use of the information to criminally investigate or prosecute any alcohol or drug abuse patient.[facility] CenterIn the event this information is protected by the Federal Confidentiality of Alcohol and Drug Abuse Patient Records regulations: The Federal rules restrict any use of the information to criminally investigate or prosecute any alcohol or drug abuse patient.[facility] CenterIn the event this information is protected by the Federal Confidentiality of Alcohol and Drug Abuse Patient Records regulations: The Federal rules restrict any use of the information to criminally investigate or prosecute any alcohol or drug abuse patient.[facility] CenterIn the event this information is protected by the Federal Confidentiality of Alcohol and Drug Abuse Patient Records regulations: The Federal rules restrict any use of the information to criminally investigate or prosecute any alcohol or drug abuse patient.[facility] CenterIn the event this information is protected by the Federal Confidentiality of Alcohol and Drug Abuse Patient Records regulations: The Federal rules restrict any use of the information to criminally investigate or prosecute any alcohol or drug abuse patient.[facility] CenterIn the event this information is protected by the Federal Confidentiality of Alcohol and Drug Abuse Patient Records regulations: The Federal rules restrict any use of the information to criminally investigate or prosecute any alcohol or drug abuse patient.[facility] CenterIn the event this information is protected by the Federal Confidentiality of Alcohol and Drug Abuse Patient Records regulations: The Federal rules restrict any use of the information to criminally investigate or prosecute any alcohol or drug abuse patient.[facility] CenterIn the event this information is protected by the Federal Confidentiality of Alcohol and Drug Abuse Patient Records regulations: The Federal rules restrict any use of the information to criminally investigate or prosecute any alcohol or drug abuse patient.[facility] CenterIn the event this information is protected by the Federal Confidentiality of Alcohol and Drug Abuse Patient Records regulations: The Federal rules restrict any use of the information to criminally investigate or prosecute any alcohol or drug abuse patient.[facility] <item><item><item><item> Privacy Markings (unrecogniz ed section [...] BE BASED ON THE PRIMARY CLINICAL RECORDS. [facility]. provides no warranty or guarantee of the accuracy or completeness of information in this document.
[2024-01-05 14:13] LABS: CREATININE FINGERSTICK 1.1 mg/dL (0.55-1.02)
== END | disposition home or self-care (01) ==
LOC: MRI 13:04
PROVIDERS: PCP Family Medicine; Referring Provider Orthopaedic Surgery Orthopaedic Surgery of the Spine; Visit Provider Orthopaedic Surgery Orthopaedic Surgery of the Spine
DX: R52 Pain, unspecified (principal); Z98.1 Arthrodesis status
CPT/HCPCS: 72158; A9575

== ENCOUNTER 2024-02-01 09:40 | Day surgery (SDC) | payer MEDICARE, SELFPAY ==
[2024-01-19 14:34] LABS: Magnesium 2.4 mg/dL (1.6-2.6)
[2024-01-19 14:54] LABS: Anion Gap 8 (5-15); BUN 8 mg/dL (7-18); BUN/Creat Ratio 8.2 RATIO (10-20); Calcium,Total 9.2 mg/dL (8.5-10.1); Chloride 106 mmol/L (98-107); Creatinine, Serum 0.97 mg/dL (0.55-1.02); EST Glomerular Filtration Rate 61 mL/min (>60); Est Glom Filt Rate - Afr Amer 74 mL/min (>60); Glucose 82 mg/dL (74-106); Potassium 3.9 mmol/L (3.5-5.1); Sodium Level 140 mmol/L (136-145)
[2024-01-19 15:20] LABS: HIV - WCH Non-Reactive (Nonreactive); Hepatitis B Surface Antibody Non-Reactive; Hepatitis C Antibody Non-Reactive (Nonreactive)
[2024-01-21 07:08] LABS: Hepatitis A AB, Total Negative (Negative)
[2024-02-01] VITALS (9 sets, daily range): BP systolic 112–135; BP diastolic 70–78; PULSE 62–67; RESP 16; TEMP 36.1–36.7; O2SAT 92–99; BMI 34.0
[2024-02-01] MEDS: Acetaminophen 500 MG Tablet 1000 MG PO (10:20)
[2024-02-01] MEDS: Lactated Ringers 1,000 ML 15 ML IV (10:20)
[2024-02-01] MEDS: Magnesium 1 GM over 15 mins IV (10:20)
[2024-02-01 11:16] LABS: Bedside Glucose 93 mg/dL (74-106)
--- NOTE | 2024-02-01 11:41 | PCM.HP.BLA ---
History and Physical MR#: [id number] Acct: [id number] Name: ELIZABETH HAYNES Rep #: [id number] : 1960 Provider: Dr. Joe Garcia MD Age/Sex: 63/F Location: [facility] [place] Status: Signed Intake Vital Signs 12/20/2415:18 Height 5 ft 3 in Intake Visit Reasons: lumbar spine Is patient in pain?: Yes Allergies Iodinated Contrast Media Allergy (Verified 01/24/24 15:14) RashPenicillins Allergy (Verified 01/24/24 15:14) Swelling [facility] Medical History (Updated 01/24/24 @ 15:17 by Low CLANCY, PA) Arthritis Bipolar disorder Cardiology follow-up encounter Contact with or exposure to viral disease Coronary artery disease Edema Former smoker GERD (gastroesophageal reflux disease) Heart disease High cholesterol History of echocardiogram History of stress test Hypertension Migraines Restless leg syndrome Wears dentures Surgical History (Updated 01/18/24 @ 13:03 by Monalisa Manriquez) History of bunionectomy History of cardiac catheterization History of coronary artery bypass graft x 3 History of lumbosacral spine surgery (~04/2023) History of total left hip arthroplasty History of total left knee replacement History of total replacement of left shoulder joint History of total right hip arthroplasty History of total right knee replacement Social History Smoking Status: Former smoker alcohol intake: never HPI lumbar spine Details: This documentation accurately reflects the service provided and the decisions made by me, Dr. Joe Garcia MD 01/24/24 [id number]. Part of today?s visit was documented by [ ], acting as scribe. ELIZABETH HAYNES is a 63 year old F here today for her pre op appointment on her lumbar spine. Patient states that she is having increased low back pain. She denies any injury but states that she feels like something moved. She is ready for surgery for next week. Patient denies any changes in her medications or allergies. Elizabeth continues to have severe pain which seems to have aggravated over the last 2 days. She does not remember any injury. She feels like a sharp stabbing pain in the left paraspinal region near the mid to upper areas of her previous incisions. Because of her new worsening pain, I obtained new x-rays today in the clinic. Following is a previous history. 01/10/24: ELIZABETH HAYNES is a 63 year old F here today to go over her MRI results. Patient states her pain was a little worse when she had the MRI but it is a little better. Patient states they had to help her off the table. Patient is taking Percocet at home that she is taking PRN from her PCP. Elizabeth continues to have significant lower back pain, which is predominantly left paraspinal in the mid lumbar spine region. She is here with her daughter today. She underwent labs and MRI of lumbar spine recently and is here to review the images. Following is a previous history. 12/23/23: ELIZABETH HAYNES is a 63 year old F here today for CT review of lumbar spine. Patient states that she feels the same as her last visit. She states she has recently had sharp pains going from her lumbar spine down into her buttocks. She states this has been off and on but has been more dominant within the last week. Elizabeth continues to have pain in the left paraspinal region of her lumbar spine over all the upper 3 incisions. She denies any radiation of pain to the lower extremities. She was seen by me previously about a week to 10 days ago and I had ordered a CT scan. She is here to review the images. Following is a previous history. 12/15/23: ELIZABETH HAYNES is a 63 year old F here today NEW patient for low back pain She states that she fx L3 and had surgery to fix it. She states that she fell backwards on cement after trying to get her dog on March 06, 2023. She states that they put rods in. She states that surgery was May 06, 2023 which was done by Dr. Kenney at . She states that the surgery never relieved her pain. She states that she's never seen him since the surgery. She does have pain into her left buttocks and down the leg. Denies numbness, tingling or other associated symptoms. Pt did bring disc with imaging. She states that standing and squatting. She states that she feels her low back is weak but is unable to afford PT, she denies PT due to this. She states that her PCP gave her Percocet but she doesn't take it often. She states she had injections with Dr. Brennan at [facility] but is unsure what type of injection. Elizabeth was trying to reach her dog in February when she fell backwards onto concrete and sustained an L3 burst fracture. She says that she has been diagnosed with osteoporosis recently but has not started any medications for it. After the fall in February she went to the emergency room the next day and was referred to orthopedic spine Dr. Kenney. For some reason Dr. Kenney recommended surgery but did not do it until April 2023 2 months after the injury. She did undergo extensive cardiac preop workup as well as MRI lumbar spine prior to the surgery in April. After the surgery she did not get relief and continued to have back pain. While initially her pain was midline and towards both paraspinal regions, after surgery it was predominantly towards the left side in the paraspinal region. She has a vague bilateral lower extremity radicular pain that goes up into the calf muscles bilaterally. She is able to walk without any ambulatory aid but has severe difficulty. Prior to the fall in February she did not have any back symptoms. She was however recovering from bilateral total hip replacement done just a year before in 2021. She has not followed up with her hip surgeon recently. She was also not able to follow-up with her spine surgeon after surgery. She has seen a pain doctor who has tried possibly SI joint injections which did not help. Ortho Exam General General: Yes no acute distress Neurologic: Yes alert and Yes oriented x3 Spine SPINE TESTING CERVICAL THORACIC LUMBAR Musculoskeletal Strength 0=absent - 5=normal Details: Examination of the lower back shows multiple paraspinal incisional scars in the lumbar spine. There is midline and left paraspinal tenderness all along the lumbar spine. Neurologic evaluation of lower extremity shows 5 x 5 power in all groups except for bilateral hip flexion which is painful. Results POC SARS AG POC SARS AG Negative Last Edit by Carolynn Frances on 01/24/24 15:23 Coding Level of Care Code Off vis,est,level 4 Diagnoses Status post lumbar spinal fusion Z98.1 Other mechanical complication of internal fixation device of vertebrae, sequela T84.296S Time Spent (min) 45 Assessment and Plan Assessment and Plan (1) Status post lumbar spinal fusion: Status: Acute (2) Other mechanical complication of internal fixation device of vertebrae, sequela: Status: Acute Orders: Orders Lumbar Spine 2 or 3 Views Today M54.50 - Low back pain, unspecified Plan I obtained new x-rays of her lumbar spine today in the clinic. These are unchanged from previous. I again reviewed her previous x-rays and CT and MRI. These show L1-4 posterior spinal fusion done for L3 burst fracture. There seems to be L1 bilateral screw loosening with encroachment into the T12-L1 disc space. This is confirmed on the MRI with T12-L1 Modic changes. No obvious increase in stenosis noticed. L4-S1 also show disc degeneration without any significant central or foraminal stenosis. No evidence of infection or collection. There is a possible seroma in the left lower screw paramedian region. This is significantly reduced from the size seen in the June 2023 MRI. I also reviewed the recent labs done. ESR and CBC are normal with no increased white count. CRP is mildly elevated. Considering the MRI findings and only mildly elevated CRP, the possibility of low-grade infection is low but nonzero. I explained to her options of treatment which include continued nonoperative treat measures versus surgery. At this point the L1 screws have significantly increased into the T12-L1 disc space 7 causing significant disc degeneration and possibly source of endplate irritation and pain. I recommended removal of the L1 screws bilaterally and cutting the alvaro right above the L2 screws bilaterally. L2-4 screws seem to have good purchase although the left L4 screws shows mild halo. I explained to the patient that I would leave the L2-4 screws intact because of 2 reasons?1 the possibility infection is low, and second these would help stabilize the L3 burst fracture on the long-term basis. I explained to her that intraoperatively if I find purulence while removing the L1 screws, might make an intraoperative decision of removing the entire instrumentation from L1-4. Patient was agreeable with the plan. All risk benefits and alternatives were discussed with the patient. The risks include but are not limited to infection, bleeding, injury to nerves and vessels, hematoma formation, and need for further surgery, persistent hardware loosening, pseudoarthrosis, facet arthrosis, DVT, pulmonary embolism, pneumonia, atelectasis, cardiopulmonary event. Persistent pain with worsening disc degeneration at T12-L1 with possible kyphotic deformity at this level was discussed, which may require surgery at a future date that might need extension of fusion crossing the TL junction into the lower thoracic spine. However, at this time minimal surgery with L1 screw removal bilaterally might help significantly with her current axial pain. Consent was signed.
[2024-02-01] MEDS: Clindamycin 900 MG/50 ML BAG 75 MG IV (11:45)
--- NOTE | 2024-02-01 11:55 | RAD_ITS ---
INDICATION: PAIN EXAMINATION/TECHNIQUE: X-RAY - XR Spine Lumbar 2 or 3 Views COMPARISON: 01/24/2024 FINDINGS: 3 views of the lumbar spine were obtained on a C-arm. Pedicle screws were removed at the level of L1. There again is fusion of L2, L3 and L4 with pedicle screws. The examination was performed for documentation. The fluoroscopy time was 8.4 seconds. The radiation dose is 6.84 mGy. RAD/Lumbar Spine 2 or 3 Views IMPRESSION: Status post removal of pedicular screws at the level of L1. Electronically Signed: Jose Barnes MD at 10:19 EDT ,
--- NOTE | 2024-02-01 13:18 | OP.PCM_ITS ---
Report of Operation Date of Procedure: 02/01/24 Description of Surgical Findings:: Preoperative diagnosis: L1 screw loosening with superior migration, prior L1-L4 posterior spinal fusion Postoperative diagnosis: Same Name of procedures: L1 screw removal of instrumentation, prone: -L1 pedicle screw removal of instrumentation [id number] Attending Surgeon: Dr. Joe Garcia Estimated blood loss: 40 mL Anesthesia: General Complications: None Indications: Patient underwent L1-L4 posterior percutaneous instrumented fusion at a different facility in April 2023. Over time she developed significant left worse than right paraspinal lumbar pain. X-rays, CT, MRI showed loosening of L1 screws bilaterally and migration of L1 screw tip into the T12-L1 disc space. After prolonged course of nonsurgical treatment, patient requested surgical intervention. Surgical options were discussed. L1 screw removal with cutting the alvaro above L2 was discussed. L2-4 instrumentation seems intact without any significant loosening or migration. All risk benefits and alternatives were discussed with the patient in detail. The risks include but are not limited to infection, bleeding, injury to nerves and vessels, nerve root injury, discitis, osteomyelitis, need for further procedures, need for extension of fusion alvarez periorly or inferiorly, persistent pain, hematoma, DVT, pulmonary embolism, pneumonia, atelectasis, cardiopulmonary event. Patient understands and agrees to proceed with surgery. Description of procedure: Patient was seen in the preop area and consent was reviewed. All questions were answered. Patient was then brought back to the operating room. Timeout was performed to make sure the entire surgical team was on the same page regarding the procedure and patient details. General anesthesia was given patient was intubated. The patient was then transferred to John table in prone position. Back was prepped and draped in usual fashion. C-arm AP view was then taken. Incisions were made over the longitudinal paramedian over prior scars at the top most region about 1 inch each. The fascia was incised vertically. Finger dissection was utilized to palpate the L1 screws. Serial tubular dilators were placed and a tubular retractor was positioned under C-arm AP view to be on top of the L1 screw tulip starting on the right side. The screw and setscrew were exposed with Bovie. Setscrew removal using the [email or web address] system screwdriver was performed. The alvaro just distal to the L1 screw was then exposed using Bovie. Appropriate length of the alvaro was identified using C arm. Metal cutting bur was utilized to cut the alvaro at least a centimeter above the L2 screws. The upper outer portion of the alvaro was then removed. The L1 screws were found to be loose on both sides. These were removed using a Dez and they came easily out. The entire screw on either side was sent for micro for culture. Multiple swabs were also taken going deep into the redness close screw channel. The procedure was repeated on the left side. AP and lateral view of the C-arm showed good positioning of the remainder of instrumentation. Hemostasis was achieved. Closure was done in layers with 0 Vicryls for the fascia, 2-0 Vicryls for the subcutaneous tissue, and Monocryl for the skin. Dermabond was applied. Dressings were applied covered with Tegaderm. The patient was then turned supine onto a hospital bed. The patient was extubated and taken to PACU in stable condition. The patient tolerated the procedure well and no complications occurred. No new instrumentation was placed. No dural tear was identified intraoperatively. I was present for the entirety of the case and performed the surgery. Admit VTE Documentation VTE Mechan Device Prophylaxis: SCD's Procedures Musculoskeletal [id number]: Other Procedure See Report
[2024-02-01] MEDS: oxyCODONE 5 MG Tablet PO (14:54)
== END 2024-02-01 15:40 | disposition home or self-care (01) ==
LOC: SDC 09:41 → AC 09:42
PROVIDERS: Anesthesiology; PCP Family Medicine; Referring Provider Family Medicine; Visit Provider Orthopaedic Surgery Orthopaedic Surgery of the Spine
PROC: (CPT 63030; principal; 2024-02-01 11:00)
DX: Z47.2 Encounter for removal of internal fixation device (principal); T84.21 Breakdown (mechanical) of internal fixation device of other bones; I25.10 Atherosclerotic heart disease of native coronary artery without angina pectoris; Z98.1 Arthrodesis status; E78.00 Pure hypercholesterolemia, unspecified; I10 Essential (primary) hypertension; Z87.891 Personal history of nicotine dependence; Z95.1 Presence of aortocoronary bypass graft; M54.50 Low back pain, unspecified; T84.29 Other mechanical complication of internal fixation device of other bones
CPT/HCPCS: 22852; 00630; 36415; 72100; 76000; 80048; 82962; 83735; 86703; 86706; 86708; 86803; 87015; 87070; 87075; 87077; 87102; 87116; 87186; 87205; 87206; 93005; J7120; J2405; J3475

== ENCOUNTER 2024-02-10 12:04 | Outpatient (CLI) | payer MEDICARE, SELFPAY ==
[2024-02-10 12:37] VITALS: BP 131/74; PULSE 52; RESP 16; O2SAT 99; BMI 35.2
[2024-02-10] MEDS: Ceftriaxone 2 GM in 0.9% Normal Saline (50mL MB+) 50 ML IV (15:01)
--- NOTE | 2024-02-10 15:02 | PRO.PCM_ITS ---
Procedure Report Date of Procedure: 02/10/24 Assessment & Plan Assessment/Plan (1) Osteomyelitis of lumbar spine: Procedures Radiology Radiology US Procedures: Other Procedure See Report (outpatient picc w/ ultrasound) Procedure Time Out Time Out Informed consent given: Yes Consent signed: Yes Time out checklist: patient, procedure, site marked/identified, positioning of patient, supplies available and allergies confirmed Time out verified: Yes Time out date: 02/10/24 Time out time: 14:00 PICC Line Consent Screening tool completed:: Yes Consent obtained:: Yes Consent given by (patient or responsible alliance party):: patient Line successful (if no, document why in comments):: Yes Insertion Reason for Insertion: Nursing Home Medication Date of Insertion: 02/10/24 Ok to use: Yes Type of PICC inserted: Single Power PICC PICC Lot #: [id number] PICC Reference #: [id number] Microintroducer Used: Yes (in kit) Ultrasound/Equipment Used: Probe Cover Kit Trimmed Length (cm): 45 Insertion Length (cm): 44 Exposed Length (cm): 1 Tip Placement: Caval Atrial Junction Placement Confirmation: 3CG Insertion Vein: Right Basilic Insertion Attempts: 1 Local Anesthesia Used: Lidocaine 1% (in kit) Dressing Applied: Statlock and Tegaderm CHG Arm Measurement above site (in cm): 33 Patient Tolerated Procedure: Well Threading Difficulties: No Comments Comment: Patient identity was verified with two patient identifiers. Informed consent was obtained and time-out was completed. Hands were sanitized. The patient was positioned supine with right arm at 90 degrees. The patient's upper arm vasculature was assessed using ultrasound. Patency of the right basilic vein was confirmed and the vein was externally marked. An external measurement was obtained of 45 cm. External leads were applied to the patient's right upper chest and laterally and inferior of the umbilicus on the mid axillary line. Cap, mask, and prep gloves were donned. The underdrape was placed under the patient's arm. The site was prepped with chlorhexidine, and tourniquet was loosely applied. Prep gloves were discarded, and hands were sanitized. The sterile kit was opened with additional supplies dropped in. Sterile gown and gloves were donned, and the patient was draped. The sterile kit was assembled with needle, introducer, needless connector, and catheter lumen flushed with sterile normal saline. The marked site of insertion was anesthetized with 1% lidocaine from the kit. Patient tolerated well. The right basilic vein was then accessed using ultrasound guidance and guidewire was inserted to safety jeannine. The tourniquet was released. The access needle was removed while securing the guidewire in place. The site was again anesthetized with 1% lidocaine, prior to insertion of introducer sheath and dilator. Patient tolerated the insertion well. The catheter was trimmed to a length of 45 cm. Using 3C guidance, the catheter was then inserted through the introducer sheath, slowly. There was no resistance on insertion. The catheter followed the expected course of the vessel using 3CG tracking. The introducer sheath was retracted and peeled away, incrementally, while keeping the catheter secured. Maximal p-wave, without deflection, confirming placement in the cavoatrial junction, was obtained at an insertion length of 44 cm, leaving 1 cm external. The stylet was removed. A flushed needleless connector was attached to the lumen. Aspiration of the lumen was performed to remove any air and confirm blood return. Blood return was verified and the lumen was flushed with 10 ml of sterile normal saline in a pulsatile fashion. The lumen was clamped with the last pulsed flush. Total sterile flushes used for the insertion was 5 10 ml syringes, 1 from the kit. Finally, the insertion site was cleaned with chlorhexidine, and the catheter was secured using a StatLock. The site was covered with a Tegaderm CHG Dressing and disinfecting caps were applied. Baseline arm circumference was obtained at the insertion site and measured 33 cm. The patient was provided with a patient education handout on PICC line care and verbalized understanding of infection prevention, heavy lifting restriction, maintaining mobility, and watching for any signs of infection. The patient was transported to the infusion center by wheelchair and accompanied by her daughter.
[2024-02-10 15:03] VITALS: BP 118/57; PULSE 45; RESP 16; TEMP 36.2; O2SAT 96; BMI 35.2
[2024-02-10 15:34] VITALS: BP 141/59; PULSE 49; RESP 16; TEMP 36.2; O2SAT 100
== END 2024-02-10 12:05 | disposition home or self-care (01) ==
LOC: MEDOUTP 12:05
PROVIDERS: PCP Family Medicine; Referring Provider Internal Medicine Infectious Disease; Visit Provider Internal Medicine Infectious Disease
DX: M86.9 Osteomyelitis, unspecified (principal)
CPT/HCPCS: 96365; 36569; A4216

== ENCOUNTER 2024-02-11 13:56 | Outpatient (CLI) | payer MEDICARE, SELFPAY ==
[2024-02-11] MEDS: Ceftriaxone 2 GM in 0.9% Normal Saline (50mL MB+) 50 ML IV (14:10)
[2024-02-11 14:15] VITALS: BP 96/52; PULSE 55; RESP 16; TEMP 36.8; O2SAT 98
[2024-02-11] MEDS: 0.9 % NaCl (Sterile) Posiflush 10 mL IV (14:50)
== END 2024-02-11 15:00 | disposition home or self-care (01) ==
LOC: MEDOUTP 13:56 → PCU 13:57
PROVIDERS: PCP Family Medicine; Referring Provider Internal Medicine Infectious Disease; Visit Provider Internal Medicine Infectious Disease
DX: M86.9 Osteomyelitis, unspecified (principal)
CPT/HCPCS: 96365

== ENCOUNTER 2024-02-12 13:52 | Outpatient (CLI) | payer MEDICARE, SELFPAY ==
[2024-02-12] MEDS: Ceftriaxone 2 GM in 0.9% Normal Saline (50mL MB+) 50 ML IV (14:11)
[2024-02-12 14:12] VITALS: BP 126/66; PULSE 54; RESP 16; TEMP 36.2; O2SAT 94
[2024-02-12] MEDS: 0.9 % NaCl (Sterile) Posiflush 10 mL IV (15:02)
== END 2024-02-12 15:00 | disposition home or self-care (01) ==
LOC: MEDOUTP 13:53 → PCU 13:58
PROVIDERS: PCP Family Medicine; Referring Provider Internal Medicine Infectious Disease; Visit Provider Internal Medicine Infectious Disease
DX: M86.9 Osteomyelitis, unspecified (principal)
CPT/HCPCS: 96365

== ENCOUNTER 2024-02-13 14:02 | Outpatient (CLI) | payer MEDICARE, SELFPAY ==
[2024-02-13] MEDS: Ceftriaxone 2 GM in 0.9% Normal Saline (50mL MB+) 50 ML IV (14:10)
[2024-02-13 14:12] VITALS: BP 113/47; PULSE 50; RESP 16; TEMP 35.7
[2024-02-13 14:46] VITALS: BP 128/52; PULSE 78
== END 2024-02-13 14:03 | disposition home or self-care (01) ==
LOC: MEDOUTP 14:02
PROVIDERS: PCP Family Medicine; Referring Provider Internal Medicine Infectious Disease; Visit Provider Internal Medicine Infectious Disease
DX: M46.26 Osteomyelitis of vertebra, lumbar region (principal)
CPT/HCPCS: 96365; A4216

== ENCOUNTER → 2024-03-01 | Outpatient (CLI) | payer MEDICARE, SELFPAY | END | disposition home or self-care (01) | LOC: LAB.FUTURE 17:10 | PROVIDERS: PCP Family Medicine; Visit Provider Internal Medicine Infectious Disease | DX: R19.7 Diarrhea, unspecified (principal) ==

== ENCOUNTER → 2024-03-05 | Outpatient (CLI) | payer MEDICARE, SELFPAY ==
--- NOTE | 2024-03-05 07:51 | MRI_ITS ---
STUDY: MRI LUMBAR SPINE WITH AND WITHOUT CONTRAST REASON FOR EXAM: Female, 63 years old. Pain -- Rule out collections LEFT SIDED BACK BACK- FEBRUARY 2023 HX OF HEART SURGERY, FEET PLATES, BOTH KNEES REPLACED, HIP REPLACEMENT, LEFT SHOULDER REPLACED, TECHNIQUE: Standardized fat and water weighted pulse sequences were obtained in the sagittal and axial planes. 19 CC CLARISCAN was administered for the contrast portion of the examination. COMPARISON: MRI of the lumbar spine dated 2023 FINDINGS: There is no evidence of active vertebral osteomyelitis or discitis or paraspinal muscle edema or abscesses. Postsurgical scarring is seen in the paraspinous soft tissues at the surgical levels of L2 down to L4. There is also minimal enhancement of the scar tissue at the same levels. Edema persists in the bilateral pedicles of L1 where previous bilateral pedicle screws are present as well as posterior fixation hardware which has subsequently been removed since the January 05, 2024 study. There is a small healed left side L2 pars interarticularis defect best seen on image 5/15 series 7. No visualized acute fractures or areas of new marrow edema. Moderate persistent Modic reactive signal is present on both sides of the T12-L1 intervertebral disc space and there is also mild persistent marrow edema throughout the L2 vertebral body, although slightly decreased from what was seen on the prior exam in December. No lytic or blastic lesions are seen. No epidural fluid collections are present. Redemonstration of a chronic compression deformity of the L3 vertebral body with 60-70% loss of height and minimal retropulsion. Normal lumbar lordosis. There is no substantial scoliosis. Normal conus medullaris that terminates at the T12 level. T12-L1: Moderate asymmetric disc space narrowing and persistent moderate to significant Modic endplate degenerative signal. Mild subacute compression fracture/deformity of the L1 vertebral body with minimal loss of height but mild persistent vertebral body edema. Normal bilateral facet joints. Normal central canal and bilateral lateral recesses. Normal bilateral intervertebral neural foramina. L1-2: Mild disc desiccation. Small Schmorl''s node and minor anterior endplate spurring. No posterior disc herniation or bulging. Normal bilateral facet joints. Normal central canal and bilateral lateral recesses. Normal bilateral intervertebral neural foramina. L2-3: Large Schmorl''s node as a result of the chronic compression fracture of L3 vertebral body. No significant posterior disc herniation or bulging. Mild focal central canal stenosis due to retropulsion of the L3 posterior cortex. Mild facet joint hypertrophy. Normal bilateral intervertebral neural foramina. L3-4: Mild asymmetric disc space narrowing. Moderate sized Schmorl''s node. No significant posterior disc herniation or bulging. Mild facet joint hypertrophy. Normal central canal and bilateral lateral recesses. Normal bilateral intervertebral neural foramina. L4-5: Moderate to severe disc space narrowing with a minimal disc spur complex and mild Modic endplate degenerative signal. Mild to moderate facet joint hypertrophy. Mild to moderate bilateral foraminal stenosis with posterior nerve root impingement. Normal central canal and bilateral lateral recesses. L5-S1: Severe disc space narrowing with minimal annular bulging and anterior endplate spurring. Mild left facet joint hypertrophy. Normal central canal and bilateral lateral recesses. Normal bilateral intervertebral neural foramina. Normal visualized sacral ala. There is moderate paraspinal muscular atrophy. MRI/Spine Lumbar W/WO Contrast IMPRESSION: 1. There is no evidence of active vertebral osteomyelitis or discitis or paraspinal muscle edema or abscesses. Postsurgical scarring is seen in the paraspinous soft tissues at the surgical levels of L2 down to L4. There is also minimal enhancement of the scar tissue at the same levels. 2. Edema persists in the bilateral pedicles of L1 where previous bilateral pedicle screws are present as well as posterior fixation hardware which has subsequently been removed since the January 05, 2024 study. 3. There is a small healed left side L2 pars interarticularis defect best seen on image 5/15 series 7. 4. No visualized acute fractures or areas of new marrow edema. 5. Moderate persistent Modic reactive signal is present on both sides of the T12-L1 intervertebral disc space and there is also mild persistent marrow edema throughout the L2 vertebral body, although slightly decreased from what was seen on the prior exam in December. No lytic or blastic lesions are seen. No epidural fluid collections are present. 6. Subacute mild compression fracture of the L1 vertebral body. 7. Multilevel degenerative changes, as described above. Electronically Signed: Farhad Kinney MD at 10:14 EDT ,
== END | disposition home or self-care (01) ==
PROVIDERS: PCP Family Medicine; Referring Provider Orthopaedic Surgery Orthopaedic Surgery of the Spine; Visit Provider Orthopaedic Surgery Orthopaedic Surgery of the Spine
DX: M46.26 Osteomyelitis of vertebra, lumbar region (principal)
CPT/HCPCS: 72158; A9575; A4216

== ENCOUNTER → 2024-03-08 | Outpatient (CLI) | payer MEDICARE, SELFPAY | END | disposition home or self-care (01) | PROVIDERS: PCP Family Medicine; Referring Provider Internal Medicine Infectious Disease; Visit Provider Internal Medicine Infectious Disease | DX: R19.7 Diarrhea, unspecified (principal) | CPT/HCPCS: 87493 ==

== ENCOUNTER 2024-03-27 11:30 | Outpatient (RCR) | payer MEDICARE, SELFPAY ==
--- NOTE | 2024-03-16 13:21 | HP.PTEVAL_ITS ---
Patient's Visit Information Visit Information Visit Information: GRICELDA HAYNES is a 63 year old F referred to Physical Therapy by Dr. Joe Garcia MD with a diagnosis of osteomyelitis lumbaar. Date of Evaluation: 03/16/24 Physical Therapist: Shen Prabhakar, DPT, OCS, CSCS Visit Plan Frequency: 2x /Week Duration: 4-6 Weeks Plan: 2x/week for 4-6 weeks...IE given pelvic tilt, SKC, trunk rotation, 10x and prone prop 3 min and quad stretch supine 30 5x all 2x/day. Please focus in PT on: 1. rollout and scar massage , desensitization massage to LB inc and paraspinals 2. spinal ROM progression to HEP. 3. ensure quad stretches and rollout as needed 4. core strength to HEP 5. gym based isometric core and general ex to her community gym when pain and independence allows. Subjective Subjective: 2 back surgeries in last 7 months. 1st alejandro did not get screws in vertebrae and was in pain since that time. 1st surgery was due to fall and lum bar fracture. In pain since February of last year. Came to Dr. Garcia who took x ray and screws were not in the bone and floating in disc. Dr. Garcia took the disc out and cut alvaro for culture and has infections. that surgery was 01/31 6 weeks ago. [facility] Infectious doctor has her on antibiotic daily for 6 weeks due to infection. Then will be on a pill forever. Will see Dr. Garcia at end of month. Pain currently is better. Sleeping is interrupted at times due to pain but not nightly and is improving. On SSI due to heart. 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 Cannot craft. Wants to exercises, likes to but can't due to TSA and DAVIDE L and back. Basic ADLS:I at home. Pain LBP/pressure: Pain Intensity (Out of 10): 4 Pain Intensity Range: 2 and 5 Objective Objective: posture is flat LB and stiff spine, and forward head. LB AROM: ext max limited, flexion mod limited and SB maxlimited. reflexes 1/3 patella adn achilles sensation WNL to LE grossly strength is 4- /5 LE without myotomal abnormalities. abs 3+ ext 3/5 Walks I with slowness and hesitancy and stiff pelvis , trasnfers I but slow bed to sit and hard /painful to roll. Steps prefers R and requires rails for safety. Balance/Special Test Scores Functional Gait Assessment Score: 25 % Disability: 16.6700 Oswestry Low Back Score: 14 Goals Goal 1:: Pain free at rest adn 75% better pain to 1/10 at worst Goal Time Frame: 4-6 Weeks Goal 2:: I appropriate HEP to limit future problems(gym isometric workout and home ROM and stretching) Goal Time Frame: 4-6 Weeks Goal 3:: oswestry score of 8 or less Goal Time Frame: 4-6 Weeks Goal 4:: Patient able to sleep without waking at night Goal Time Frame: 4-6 Weeks Goal 5:: Yard work without increased pain Goal Time Frame: 4-6 Weeks Goal 6:: FGA Goal Time Frame: 4-6 Weeks Rehabilitation Potential Physical Therapy Diagnosis: weakness and pain in LB limiting mobility and function Rehabilitation Potential: Good Anticipated Interventions Patient/Client Instruction: Educate patient on: Condition For the Purpose of:: To decrease pain, To increase ROM, To improve nutrient delivery to tissue, To improve muscle performance and motor function, To increase tolerance to activity/condition/position, To improve ability of physical actions for home/community/work/leisure and To improve gait and locomotor functions Therapeutic Exercise to Include: Strength training, Balance training, Flexibilty training, Gait and locomotor training, Passive ROM, Active ROM and Dynamic Lumbar Stabilization For the Purpose of:: To decrease pain, To increase ROM, To improve nutrient delivery to tissue, To improve muscle performance and motor function, To increase tolerance to activity/condition/position and To improve ability of physical actions for home/community/work/leisure Manual Therapy Techniques to Include: Scar massage, Mobilization, Passive ROM and Soft tissue mobilization For the Purpose of:: To decrease pain, To increase ROM and To improve nutrient delivery to tissue Thermo therapy (hot pack): Yes For the Purpose of:: To decrease pain Text: Thank you for the opportunity to evaluate your patient. For Medicare and Medicare HMO plans, please review the plan of care and approve it. It will need to be FAXED BACK to us at [phone] for Medicare purposes. For Medicare only, by signing this I certify the plan of care. Please let me know if there are questions or concerns regarding this plan of care. Physician Signature: Date:
--- NOTE | 2024-05-30 15:21 | HP.PT.NRP ---
Patient Information Patient Information: GRICELDA HAYNES was seen in my office for initial evaluation on 03/16/24. The following Plan of Care was established for this patient: POC Established Initial Frequency: 2x /Week Initial Duration: 4-6 Weeks Anticipated Interventions Patient/Client Instruction: Educate patient on: Condition For the Purpose of:: To decrease pain, To increase ROM, To improve nutrient delivery to tissue, To improve muscle performance and motor function, To increase tolerance to activity/condition/position, To improve ability of physical actions for home/community/work/leisure and To improve gait and locomotor functions Therapeutic Exercise to Include: Strength training, Balance training, Flexibilty training, Gait and locomotor training, Passive ROM, Active ROM and Dynamic Lumbar Stabilization For the Purpose of:: To decrease pain, To increase ROM, To improve nutrient delivery to tissue, To improve muscle performance and motor function, To increase tolerance to activity/condition/position and To improve ability of physical actions for home/community/work/leisure Manual Therapy Techniques to Include: Scar massage, Mobilization, Passive ROM and Soft tissue mobilization For the Purpose of:: To decrease pain, To increase ROM and To improve nutrient delivery to tissue Thermo therapy (hot pack): Yes For the Purpose of:: To decrease pain Last Seen Last Seen: This patient was last seen in our office 03/27/24. Pertinent comments regarding their Physical therapy will appear below: Pt seen 3 visits of POC but did not schedule or attend any further visits in her POC. At this point, It has been over two months and I will discontinue from my care. At this point I will be discontinuing this patient from physical therapy. I would be happy to see this patient again in the future if found appropriate by the physician. Thank you! Shen Prabhakar, DPT, OCS, CSCS Balance/Gait/Functional tests Balance/Special Test Scores Functional Gait Assessment Score: 25 % Disability: 16.6700 Oswestry Low Back Score: 14
== END 2024-03-27 19:00 | disposition home or self-care (01) ==
LOC: PT 11:30
PROVIDERS: PCP Family Medicine; Referring Provider Orthopaedic Surgery Orthopaedic Surgery of the Spine; Visit Provider Orthopaedic Surgery Orthopaedic Surgery of the Spine
DX: M46.26 Osteomyelitis of vertebra, lumbar region (principal)
CPT/HCPCS: 97110; 97140; 97162

== ENCOUNTER → 2024-06-27 | Outpatient (CLI) | payer MEDICARE, SELFPAY ==
[2024-06-27 17:37] LABS: Absolute Lymphocyte Count 1.78 X10^3/uL (0.83-4.51); Absolute Neutrophil Count 4.2 X10^3/uL (2.0-7.7); Basophil# 0.03 X10^3/uL; Basophil% 0.4 % (0-1); Eosinophil# 0.12 X10^3/uL; Eosinophils% 1.8 % (0-5); Hemoglobin 12.9 g/dL (12.0-15.0); Lymphocyte # 1.78 X10^3/ul (0.83-4.51); Lymphocyte % 26.6 % (19-41); Mean Corp Hgb Conc 32.3 g/dL (32-36); Mean Corpuscular Volume 89.9 fL (81-99); Mean Platelet Vol. 12.5 fl (6.2-12.0); Monocyte# 0.52 X10^3/uL; Monocyte% 7.8 % (0-10); NRBC Flagged by Analyzer 0 % (0-5); Neutrophil # 4.23 X10^3/uL (2.7-7.7); Neutrophil % 63.3 % (47-70); Platelet Count 222 K/mm3 (150-450); RBC Distribution Width CV 14.3 % (11.6-14.6); RBC Distribution Width SD 46.7 fl (35.1-43.9); Red Blood Count 4.45 M/mm3 (4.2-5.4); White Blood Count 6.7 K/mm3 (4.4-11.0)
[2024-06-27 17:43] LABS: Erythrocyte Sedimentation Rate 8 mm/hr (0-30)
== END | disposition home or self-care (01) ==
LOC: MTLAB 14:42
PROVIDERS: Student in an Organized Health Care Education/Training Program; PCP Family Medicine; Referring Provider Orthopaedic Surgery Orthopaedic Surgery of the Spine; Visit Provider Orthopaedic Surgery Orthopaedic Surgery of the Spine
DX: M46.26 Osteomyelitis of vertebra, lumbar region (principal)
CPT/HCPCS: 36415; 85025; 85652; 86140

== ENCOUNTER → 2024-07-05 | Outpatient (CLI) | payer MEDICARE, SELFPAY ==
[2024-07-05 13:32] LABS: Absolute Lymphocyte Count 1.86 X10^3/uL (0.83-4.51); Absolute Neutrophil Count 4.4 X10^3/uL (2.0-7.7); Basophil# 0.02 X10^3/uL; Basophil% 0.3 % (0-1); Eosinophil# 0.18 X10^3/uL; Eosinophils% 2.5 % (0-5); Hematocrit 38.8 % (37-47); Hemoglobin 12.9 g/dL (12.0-15.0); Lymphocyte # 1.86 X10^3/ul (0.83-4.51); Lymphocyte % 26.3 % (19-41); Mean Corp Hgb Conc 33.2 g/dL (32-36); Mean Corpuscular Hgb 29.7 pg (27.0-32.0); Mean Corpuscular Volume 89.2 fL (81-99); Mean Platelet Vol. 12.2 fl (6.2-12.0); Monocyte# 0.56 X10^3/uL; Monocyte% 7.9 % (0-10); NRBC Flagged by Analyzer 0 % (0-5); Neutrophil # 4.44 X10^3/uL (2.7-7.7); Neutrophil % 62.9 % (47-70); Platelet Count 200 K/mm3 (150-450); RBC Distribution Width CV 13.9 % (11.6-14.6); RBC Distribution Width SD 45.3 fl (35.1-43.9); Red Blood Count 4.35 M/mm3 (4.2-5.4); White Blood Count 7.1 K/mm3 (4.4-11.0)
[2024-07-05 14:04] LABS: ALB/GLOB Ratio 1.2 RATIO (0.9-2.4); AST(SGOT) 18 U/L (15-37); Alanine Aminotransfer ALT/SGPT 22 U/L (13-56); Albumin, Serum 3.7 g/dL (3.2-5.0); Alkaline Phosphatase 122 U/L (45-117); Anion Gap 8 (5-15); BUN 14 mg/dL (7-18); Chloride 105 mmol/L (98-107); Cholesterol 171 mg/dL (200); Creatinine, Serum 0.78 mg/dL (0.55-1.02); EST Glomerular Filtration Rate 79 mL/min (>60); Est Glom Filt Rate - Afr Amer 96 mL/min (>60); Glucose 82 mg/dL (74-106); High Density Lipoprotein 74 mg/dL; Potassium 3.6 mmol/L (3.5-5.1); Protein, Total 6.7 g/dL (6.4-8.2); Sodium Level 138 mmol/L (136-145); Triglycerides 60 mg/dL; Very Low Density Lipoprotein 12 mg/dL (5-40)
[2024-07-09 16:09] LABS: Lamotrigine (Lamictal) Level 4.4 ug/mL (2.0-20.0)
== END | disposition home or self-care (01) ==
LOC: LAB 13:03
PROVIDERS: PCP Family Medicine; Referring Provider Family Medicine; Visit Provider Family Medicine
DX: E78.5 Hyperlipidemia, unspecified (principal); F31.32 Bipolar disorder, current episode depressed, moderate; I10 Essential (primary) hypertension
CPT/HCPCS: 36415; 80053; 80061; 82542; 85025

== ENCOUNTER → 2024-10-17 | Outpatient (CLI) | payer MEDICARE, SELFPAY ==
[2024-10-17 12:52] LABS: Absolute Lymphocyte Count 1.51 X10^3/uL (0.83-4.51); Absolute Neutrophil Count 3.6 X10^3/uL (2.0-7.7); Basophil# 0.02 X10^3/uL; Basophil% 0.3 % (0-1); Eosinophil# 0.12 X10^3/uL; Eosinophils% 2.1 % (0-5); Hemoglobin 13.2 g/dL (12.0-15.0); Lymphocyte # 1.51 X10^3/ul (0.83-4.51); Lymphocyte % 26.4 % (19-41); Mean Corpuscular Hgb 29.3 pg (27.0-32.0); Mean Corpuscular Volume 88.7 fL (81-99); Mean Platelet Vol. 12.1 fl (6.2-12.0); Monocyte# 0.48 X10^3/uL; Monocyte% 8.4 % (0-10); NRBC Flagged by Analyzer 0 % (0-5); Neutrophil # 3.58 X10^3/uL (2.7-7.7); Neutrophil % 62.5 % (47-70); Platelet Count 204 K/mm3 (150-450); RBC Distribution Width CV 13.6 % (11.6-14.6); RBC Distribution Width SD 44.2 fl (35.1-43.9); Red Blood Count 4.51 M/mm3 (4.2-5.4); White Blood Count 5.7 K/mm3 (4.4-11.0)
[2024-10-17 14:14] LABS: BNP,B-Type NATRIURETIC PEPTIDE 90.5 pg/mL (0-100)
[2024-10-19 14:09] LABS: Lamotrigine (Lamictal) Level 4.1 ug/mL (2.0-20.0)
== END | disposition home or self-care (01) ==
LOC: LAB 12:20
PROVIDERS: PCP Family Medicine; Referring Provider Family Medicine; Visit Provider Family Medicine
DX: I50.22 Chronic systolic (congestive) heart failure (principal); F31.32 Bipolar disorder, current episode depressed, moderate
CPT/HCPCS: 36415; 82542; 83880; 85025

== ENCOUNTER → 2025-02-20 | Outpatient (CLI) | payer MEDICARE, SELFPAY ==
--- NOTE | 2025-02-20 12:59 | ECHOD_ITS ---
Reason For Study Reason For Study: SHORTNESS OF BREATH Procedure This was a 2D Doppler, Color Flow transthoracic echocardiogram. Exam performed in department. Left Ventricle Normal LV size. Left ventricular systolic function is normal. The left ventricular ejection fraction is 60 %. No regional wall motion abnormalities noted. Right Ventricle Normal RV size. Normal systolic function. Mitral Valve Normal mitral valve. Trivial eccentric mitral valve insufficiency. Great Vessels Normal aortic root. The pulmonary artery is normal size. Normal inferior vena cava. Pericardium/Pleural No pericardial effusion. MMode/2D Measurements & Calculations LVIDd: 5.1 cm IVSd: 0.87 cm Ao root diam: 3.2 cm LVIDs: 3.5 cm LVPWd: 0.96 cm RVDd: 3.1 cm FS: 30.9 % LAV(MOD-bp): 40.4 ml SV(MOD-sp4): 52.7 ml LVAd ap4: 26.7 cm2 LAV(MOD-bp) Indexed: 21.6 ml/m2 LVLd ap4: 7.2 cm SI(MOD-sp4): 28.1 ml/m2 LAV(MOD-sp2): 37.8 ml EDV(MOD-sp4): 83.2 ml LAV(MOD-sp4): 42.7 ml EDV(sp4-el): 83.7 ml LVAs ap4: 15.5 cm2 LVLs ap4: 6.7 cm ESV(MOD-sp4): 30.6 ml ESV(sp4-el): 30.3 ml EF(MOD-sp4): 63.2 % EF(sp4-el): 63.8 % SV(sp4-el): 53.5 ml LA A4 area: 17.8 cm2 LA dimension(2D): 3.9 cm RA A4 area: 16.5 cm2 TAPSE: 1.8 cm Time Measurements MV dec time: 0.19 sec Doppler Measurements & Calculations MV E max ricardo: 90.7 cm/sec Lat Peak E' Ricardo: 12.6 cm/sec Med Peak E' Ricardo: 8.5 cm/sec MV A max ricardo: 87.9 cm/sec E/E' lat: 7.2 E/E' med: 10.7 MV E/A: 1.0 Ao V2 max: 138.7 cm/sec LV V1 max: 121.4 cm/sec PA V2 max: 120.8 cm/sec Ao max P.7 mmHg LV V1 max P.9 mmHg TR max ricardo: 264.8 cm/sec TR max P.1 mmHg ECHO/Echo Complete Interpretation Summary Left ventricular systolic function is normal. Normal LV size. The left ventricular ejection fraction is 60 %. Structurally normal valves. Ordering Physician: EFRA TOLEDO Referring Physician: MALVIN SHANNON Performed By: Svitlana Lima RDCS
--- NOTE | 2025-02-20 13:00 | VDLE_ITS ---
Reason For Study Reason For Study: Right leg swelling RIGHT LEFT CFV is compressible, spontaneous, phasic, competent CFV is compressible, spontaneous, phasic, competent, and demonstrates normal augmentation. and demonstrates normal augmentation. FV is compressible, spontaneous, phasic, competent and demonstrates normal augmentation. POP V is compressible, spontaneous, phasic, competent and demonstrates normal augmentation. T/P Trunk is compressible. PTV is compressible. RT PerV is compressible. GSV harvested for CABG. Procedure This is a venous duplex using B-mode, color flow and spectral Doppler. Exam performed in department. A preliminary report was called and/or faxed to [facility]. VL/Venous Duplex US, Unilateral Interpretation Summary Deep veins of the right lower extremity are patent and compressible segmentally . There is no evidence of right lower extremity deep vein thrombosis. Ordering Physician: EFRA TOLEDO Referring Physician: Marietta Johnson Performed By: Thi Villasenor RVT
== END | disposition home or self-care (01) ==
LOC: CVS 12:55
PROVIDERS: PCP Family Medicine
DX: M79.89 Other specified soft tissue disorders (principal); Z95.1 Presence of aortocoronary bypass graft; R06.02 Shortness of breath
CPT/HCPCS: 93306; 93971

== ENCOUNTER → 2025-06-18 | Outpatient (CLI) | payer MEDICARE, SELFPAY ==
--- NOTE | 2025-06-18 14:29 | BI_ITS ---
EXAM: SCRN MAMM (CAD)W/STEFAN BILAT DATE: 06/18/2025 CLINICAL HISTORY: F, Age 64 y/o , SCREENING No family history. TECHNIQUE: SCRN MAMM (CAD)W/STEFAN BILAT COMPARISON: No prior examination available for comparison at this time. FINDINGS: TISSUE DENSITY: There are scattered areas of fibroglandular density. Bilateral Breast Mammographic Findings: There is a 6.7 mm well-defined nodule in the lateral retroareolar region of the left breast. Correlation with ultrasound is recommended. Fat containing bilateral axillary lymph nodes. BI/SCRN MAMM (CAD)W/STEFAN BILAT IMPRESSION: 6.7 mm well-defined nodule in the lateral retroareolar region of the left breas t as described. Correlation with ultrasound recommended. OVERALL FINAL ASSESSMENT BI-RADS 0: INCOMPLETE - NEED ADDITIONAL IMAGING EVALUATION. RECOMMENDATION: Ultrasound Recommended A letter with findings and recommendations will be mailed to the patient. Reading Location: [facility]
== END | disposition home or self-care (01) ==
LOC: OPBI 14:28
PROVIDERS: PCP Family Medicine; Referring Provider Family Medicine; Visit Provider Family Medicine
DX: Z12.31 Encounter for screening mammogram for malignant neoplasm of breast (principal)
CPT/HCPCS: 77063; 77067

== ENCOUNTER → 2025-06-27 | Outpatient (CLI) | payer MEDICARE, SELFPAY ==
--- NOTE | 2025-06-27 12:23 | US_ITS ---
PROCEDURE: BREAST LIMITED UNILATERAL 06/27/2025 REASON FOR EXAM: F, Age 64 y/o , ABN MAMM COMPARISON: Prior mammogram dated June 18, 2025.. TECHNIQUE: BREAST LIMITED UNILATERAL FINDINGS: The mammographic abnormality corresponds to a 1.1 cm x 0.7 cm x 0.4 cm well- defined hypoechoic nodule at the 4 o'clock position of the breast at 6 cm from the nipple. Mild degree of posterior shadowing. This most likely represents a fibroadenoma. Biopsy recommended. US/Breast Limited Unilateral IMPRESSION: The mammographic finding corresponds to a 1.1 cm x 0.7 cm x 0.4 cm well-defined hypoechoic nodule at the 4 o'clock position of the breast at 6 cm from the nipple. 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 Biopsy recommended. BI-RADS 4: SUSPICIOUS RECOMMENDATION: Biopsy Recommended Reading Location: [place] [id number]
--- OUTSIDE RECORDS SUMMARY | 2025-06-27 19:29 | XMS RPT_ITS | CCD ---
Author Organization [facility] Care Team Providers Care Piece Goods Packer Name Role Phone PROVIDER, UNKNOWN Unavailable Unavailable Distel, Albina Unavailable Unavailable Distel, Albina Unavailable Unavailable Distel, Albina Mackenzie Primary Care Unavailable Avery, Claus Unavailable Unavailable Oberhauser, Ale Unavailable Unavailable Distel, Albina M Unavailable Unavailable Avery, Claus E Unavailable Unavailable Oberhauser, Ale L Unavailable Unavailable Aubrey Malone Primary Care Provider [phone] Aubrey Malone Primary Care Provider ÁNGEL PONCE Attending Unavail able ÁNGEL PNOCE Referring Unavail able AUBREY MALONE Primary Care Unavailable Oberhauser DO Ale Unavailable Unavailable Distel, Albina M Unavailable Unavailable Avery, Claus E Unavailable Unavailable Oberhauser, Ale L Unavailable Unavailable Distel, Albina M Unavailable Unavailable Unavailable Liliya Lara MD Primary Care Provider Claus Avery MD Unavailable Unavailable Avery, Claus E Unavailable Unavailable Oberhauser, Ale Angelita Unavailable Unavailab le LILIYA LARA Primary Care Unavailable SYSTEM, PROVIDER NOT IN Referring Unavaila ble SYSTEM, PROVIDER NOT IN Attending Unavaila ble SYSTEM, PROVIDER NOT IN Attending Unavaila ble LILIYA LARA Primary Care Unavailable SYSTEM, PROVIDER NOT IN Referring Unavaila ble Aubrey Malone Primary Care Provider Nagi Wagner MD Unavailable [phone] Distel, Albina M Unavailable Johnathan Ma I Unavailable Unavailable Liliya Lara MD Primary Care Provider [phone] Aubrey Malone Primary Care Provider Nagi Wagner MD Unavailable Perry, Aubrey Alberts Primary Care Provider Nagi Wagner MD Unavailable MarizaLiliya bradford MD Primary Care Provider MarizaLiliya bradford MD Primary Care Provider Jet Fitzgerald Unavailable Unavailable MARIZA, LILIYA Primary Care Unavailable SHEFALI JAIN Attending Unavailable MARIZA, LILIYA Primary Care Unavailable ERIN OHARA Attending Unavail able MARIZA, LILIYA Attending Unavailable MARIZA, LILIYA Referring Unavailable MARIZA, LILIYA Primary Care Unavailable MARIZA, LILIYA Attending Unavailable MARIZA, LILIYA Referring Unavailable MARIZA, LILIYA Primary Care Unavailable MARIZA, LILIYA Attending Unavailable MARIZA, LILIYA Referring Unavailable MARIZA, LILIYA Primary Care Unavailable Mariza Liliya ISAACS Primary Care Provider Unavailable Primary Care Provider UnavailKENNEDY Pabon Consulting Unavailable Andino LEGAL ADVISOR PILEDRIVER CARPENTER, Sophie Alberts Unavailable Unavailabl e Mariza, Liliya Unavailable Bubba Ryan Unavailable Unavailable Claus Moreira Unavailable Unavailable Manrocío, Ms. Lund Attending Unavail able Jaimie, Dr. Albina Mann Primary Care Unavailgreyson Fitzgerald, Dr. Jet Montez Attending Unava ilroderick Etienne, Dr. Albina Mann Primary Care Unavailgreyson Fitzgerald, Dr. Kennedy Dale Attending Unavailwilliams Fitzgerald, Dr. Kennedy Dale Referring Unavailabl e Sadie, MsDavid Thompson Attending UnavailMD BUBBA Huynh Attending Unavailable Nagi Wagner MD Unavailable Andino LEGAL ADVISOR PILEDRIVER CARPENTER, Sophie M Unavailable Unavailabl e PROVIDER, UNKNOWN Referring Unavailable MARIZA, LILIYA Primary Care Unavailable KENNEDY FITZGERALD Consulting Unavailable Marietta Johnson DO Primary Care Provider Dr. Joe Garcia Attending Provider Dr. Jorge Luis Mendoza Attending Provider Dr. Marietta Johnson Primary Care Provider Dr. Marietta Johnson Referring Provider Dr. Joe Garcia Attending Provider Dr. Jorge Luis Mendoza Attending Provider Dr. Marietta Johnson Primary Care Provider Dr. Marietta Johnson Referring Provider [phone] Dr. Nagi Wagoner Attending Provider Dr. Joe Garcia Referring Provider Yolanda CLANCY, PA Low Alberts Attending Provider Dr. Joe Garcia Other Provider Dr. Tiny Swanson Referring Provider Dr. Tiny Swanson Other Provider JARON Camacho-Steven Gibbs Attending Provider Liliya Lara MD Primary Care Provider TINY SWANSON Referring Unavailable MARIZA, LILIYA Primary Care Unavailable DAYNE HIRSCH Attending Unavailable Liliya Lara MD Primary Care Provider MARIZA, LILIYA Primary Care Unavailable TINY SWANSON Attending Unavailable MARIZA, LILIYA Primary Care Unavailable TINY SWANSON Attending Unavailable MARIZA, LILIYA Primary Care Unavailable TINY SWANSON Attending Unavailable MARIZA, LILIYA Primary Care Unavailable TINY SWANSON Attending Unavailable MARIZA, LILIYA Primary Care Unavailable TINY SWANSON Attending Unavailable Marietta Johnson DO Primary Care Provider Marietta Johnson DO Primary Care Provider MARIETTA JOHNSON Referring Unavailable MARIETTA JOHNSON Primary Care Unavailable MARIETTA JOHNSON Referring Unavailable MARIZA, LILIYA Primary Care Unavailable SATINDER LEONARD Attending Unavailable MARIETTA JOHNSON Primary Care Unavailable Marietta Johnson DO Primary Care Provider Dr. Marietta Johnson DO Primary Care Provi mark SUSAN BUCK Attending Provider SUSAN BUCK Referring Provider [phone] Kelly ISAACS, Dr. Kang Attending Provider [phone] Dr. Shen Parmar MD Attending Provider [phone] SUSAN BUCK Referring Provider Unavailable SUSAN BUCK Attending Unavailable ALEX, MARIETTA A Primary Care Unavailable JOHNSON, MARIETTA JAYNE Primary Care Unavailab le TRAM, TATIANA SABRY Referring Unavailable TRAM, TATIANA SABRY Admitting Unavailable JOHNSON, MARIETTA JAYNE Primary Care Unavailab le TRAM, TATIANA SABRY Referring Unavailable TRAM, TATIANA SABRY Admitting Unavailable JOHNSON, MARIETTA JAYNE Primary Care Unavailab le TRAM, TATIANA SABRY Attending Unavailable JOHNSON, MARIETTA JAYNE Primary Care Unavailab le TRAM, TATIANA SABRY Attending Unavailable JOHNSON, MARIETTA JAYNE Primary Care Unavailab le TRAM, TATIANA SABRY Referring Unavailable TRAM, TATIANA SABRY Admitting Unavailable JOHNSON, MARIETTA JAYNE Primary Care Unavailab le TRAM, TATIANA PHOENIXRY Attending Unavailable JOHNSON, MARIETTA JAYNE Primary Care Unavailab le HASSMANN II, AJIT HINSON Attending Un available JOHNSON, MARIETTA JAYNE Primary Care Unavailab le HASSMANN II, AJIT HINSON Referring Un available HASSMANN II, AJIT HINSON Admitting Un available HASSMANN II, AJIT HINSON Referring Un available JOHNSON, MARIETTA JAYNE Primary Care Unavailab le HASSMANN II, AJIT HINSON Admitting Un available JOHNSON, MARIETTA JAYNE Primary Care Unavailab le HASSMANN II, AJIT HINSON Attending Un available HASSMANN II, AJIT HINSON Referring Un available JOHNSON, MARIETTA JAYNE Primary Care Unavailab le HASSMANN II, AJIT HINSON Admitting Un available HASSMANN II, AJIT HINSON Referring Un available HASSMANN II, AJIT HINSON Admitting Un available JOHNSON, MARIETTA JAYNE Primary Care Unavailab le JOHNSON, MARIETTA JAYNE Primary Care Unavailab le TRAM, TATIANA POZO Attending Unavailable CRISSY ZAVALA Referring Unavailable JOHNSON, MARIETTA A Primary Care Unavailable CRISSY ZAVALA Referring Unavailable JOHNSON, MARIETTA A Primary Care Unavailable CRISSY ZAVAAL Attending Unavailable SUSAN BUCK Referring Unavailable JOHNSON, MARIETTA A Primary Care Unavailable ABDELRAHMAN CONRAD Attending Unavailable MARIETTA JOHNSON Primary Care Unavailable CRISSY ZAVALA Attending Unavailable CRISSY ZAVALA Referring Unavailable ALEX, MARIETTA Gibbs Primary Care Unavailable ZAVALACRISSY SAUER Attending Unavailable ZAVALACRISSY SAUER Referring Unavailable ALEX, MARIETTA Gibbs Primary Care Unavailable Alex, Marietta Allen Primary Care Unavailab le Johnson, Marietta Allen Referring Unavailab le Garcia, Joe Attending Unavailable Kelly, Jorge Luis Attending Unavailable Johnson, Marietta Allen Primary Care Unavailab le Johnson, Marietta Allen Referring Unavailab le Johnson, Marietta Allen Attending Unavailab le Johnson, Marietta Allen Primary Care Unavailab le Johnson, Marietta Allen Primary Care Unavailab le Zavala, Crissy Attending Unavailable Zavala, Crissy Referring Unavailable Johnson, Marietta Allen Primary Care Unavailab le Jeaneth, Elli Lozada TREASURY CONSULTANT Attending Unavailable Jeaneth, Elli Lozada TREASURY CONSULTANT Referring Unavailable Johnson, Marietta Allen Primary Care Unavailab le Garcia, Joe Attending Unavailable Garcia, Joe Referring Unavailable Johnson, Marietta Allen Attending Unavailab le Ojhnson, Marietta Allen Referring Unavailab le Johnson, Marietta Allen Primary Care Unavailab le Johnson, Marietta Allen Referring Unavailab le Johnson, Marietta Allen Primary Care Unavailab le Johnson, Marietta Allen Attending Unavailab le Johnson, Marietta Allen Referring Unavailab le Johnson, Marietta Allen Attending Unavailab le Johnson, Marietta Allen Primary Care Unavailab le Kelly, Jorge Luis Attending Unavailable Johnson, Marietta Allen Primary Care Unavailab le Johnson, Marietta Allen Primary Care Unavailab le [place], Shen Attending Unavailable Jeaneth, Elli Lozada TREASURY CONSULTANT Referring Unavailable Dr. Marietta Johnson DO Primary Care Provi mark Dr. Marietta Johnson DO Attending Provider Dr. Marietta Johnson DO Referring Provider Allergies Allergy Classification Reported Allergen(s) Allergy Type Date of Onset Reaction(s) Facility Bacitracin / Neomycin / Polymyxin B (2 sources) Bacitracin / Neomycin / Polymyxin B; Translations: [Neosporin LT OINT] Drug Allergy -[facility] Work Phone: Iodine (and Iodine containting drugs) (3 sources) Iodine; Translations: [iodine] Drug Allergy 10-14-[address] [facility] Repository Penicillins (antibiotic) (3 sources) Penicillins; Translations: [Penicillins] Drug Allergy 12-25-[address] [facility] Repository (3 sources) Bacitracin / Neomycin / Polymyxin B Drug Allergy [facility] Work Phone: (20 sources) Iodine; Translations: [IODINE] Drug Allergy 10-14-20 03 Anaphylaxis [facility] Work Phone: (20 sources) Penicillins; Translations: [Penicillins] Allergy to drug (finding) 02-27-20 02 Other: See Comments [facility] Work Phone: (20 sources) Adhesive agent; Translations: [ADHESIVE] Propensity to adverse reactions to drug 07-15-20 17 Itching, Rash [facility] (20 sources) Gramicidin / Neomycin / Polymyxin B; Translations: [NEOMYCIN-POLYMYXI N-GRAMICIDIN] Drug Allergy 12-17-19 16 [facility] (20 sources) Neomycin-Bacitraci n-Polymyxin; Translations: [NEOMYCIN-BACITRAC IN-POLYMYXIN] Propensity to adverse reactions to drug 02-29-20 09 Rash, Itching [facility] (20 sources) Penicillins Propensity to adverse reactions to drug 02-27-20 02 Other: See Comments [facility] (20 sources) Iodine And Iodide Containing Products; Translations: [IODINE AND IODIDE CONTAINING PRODUCTS] Propensity to adverse reactions to drug Unknown [facility] (4 sources) Contrast media Rash, Itching, Other [facility] (20 sources) Ct: Iodinated Contrast- Oral And Iv Dye; Translations: [CT: IODINATED CONTRAST- ORAL AND IV DYE] Propensity to adverse reactions to drug 04-20-20 22 Unknown, Rash [facility] Work Phone: (20 sources) Penicillins Propensity to adverse reactions to drug 02-27-20 02 Other: See Comments [facility] (2 sources) Penicillins Propensity to adverse reactions 05-16-20 23 [facility] (13 sources) Penicillins Allergy to substance 12-23-19 24 [facility] Comment on above: rash (13 sources) Triiodobenzoic Acids Allergy to substance 12-23-19 Rash Comment on above: itching (7 sources) predniSONE; Translations: [PREDNISONE] Drug Allergy 12-12-19 GI Intolerance [facility] (7 sources) rOPINIRole; Translations: [ROPINIROLE] Drug Allergy 12-12-19 Other (See Comments) [facility] (1 source) Penicillin; Translations: [PENICILLIN] Drug Allergy 06-07-20 [facility] 2 Repository (1 source) ALLERGIES NOT ON FILE; Translations: [ALLERGIES NOT ON FILE] Propensity to adverse reactions (disorder) [facility] 2 Repository (16 sources) Penicillins Drug Allergy 02-27-20 Other: See Comments [facility] (1 source) Penicillins Drug allergy (disorder) 06-27-20 Repository (1 source) Iodinated Contrast Media Drug allergy (disorder) 06-27-20 Repository Medications Current Medications Medication Drug Class(es) Dates [...] Active acetaminophen 325 mg / oxyCODONE hydrochloride 5 mg oral tablet (20 sources) Opioid Agonist Start: 03-05-2024 take 1 tablet by mouth twice daily as needed oxyCODONE-acetamino phen (Percocet) 5-325 mg per tablet 1 tablet as needed Orally twice daily PRN 03/05/2024 Active Start: 12-15-2023 End: 02-01-2024 Oxycodone-Acetaminophen 5-32 5 mg tablet Discontinued 1 {tbl} PO DAILY as needed for pain 0 December 15, 2023 1:00am February 01, 2024 1:39pm Start: 12-15-2023 End: 02-01-2024 take 1 tablet by mouth once daily Oxycodone-Acetaminophen Discontinued 1 TABLET PO DAILY December 15, 2023 1:00am February 01, 2024 1:39pm Start: 06-25-2023 End: 06-28-2023 take 1 tablet by mouth every eight hours as needed for pain oxyCODONE-acetaminophen (PERCOCET) 10-32 5 mg per tablet Indications: Degeneration of lumbar intervertebral disc Take 1 (one) tablet by mouth every 8 (eight) hours as needed for pain . 10 tablet 0 06/25/2023 06/28/2023 Active Start: 05-27-2023 End: 06-25-2023 take 1 tablet by mouth every six hours as needed oxyCODONE-acetaminophen (PERCOCET) 10-32 5 mg per tablet Take 1 (one) tablet by mouth every 6 (six) hours as needed for pain . 0 05/27/2023 06/25/2023 Discontinued (Reorder (Suppress CancelRx Message to Pharmacy)) Start: 08-31-2022 End: 01-17-2023 take 1 tablet by mouth every six hours as needed for pain oxyCODONE-acetaminophen (PERCOCET) 5-325 mg per tablet Indications: Bilateral shoulder bursitis Take 1 (one) tablet by mouth every 6 (six) hours as needed for pain . 20 tablet 0 08/31/2022 01/17/2023 Discontinued Start: 07-21-2022 End: 07-24-2022 take 1 tablet by mouth every eight hours as needed for pain oxyCODONE-acetaminophen (PERCOCET) 5-325 mg per tablet Indications: Bilateral shoulder bursitis , Left hip pain Take 1 (one) tablet by mouth every 8 (eight) hours as needed for pain . 12 tablet 0 07/21/2022 07/24/2022 Start: 12-15-2021 End: 12-18-2021 take 1 tablet by mouth every eight hours as needed for pain oxyCODONE-acetaminophen (PERCOCET) 5-325 mg per tablet Take 1 (one) tablet by mouth every 8 (eight) hours as needed for pain . 12 tablet 0 12/15/2021 12/15/2021 Discontinued Start: 05-02-2018 End: 12-25-2020 oxyCODONE-acetaminophen (PER COCET) 5-325 mg per tablet acetaminophen / oxyCODONE PERCOCET 5-325 MG TABS 1 tablet as needed OXYCODONE-ACETAMINOPHEN [id number] Ale Dunne TECHNICAL BUSINESS SYSTEMS ANALYST 05-02-2018 [facility] [phone] 05/02/2018 12/25/2020 Discontinued take 1 tablet by aleksandar th every four hours as needed oxyCODONE-acetaminophen (PERCOCET) 5-325 mg tablet Take 1 tablet by mouth every 4 hours as needed for Pain. Active Comment on above: Take 1 tablet by aleksandar th every 4 hours as needed for Pain. ALPRAZolam 0.5 mg oral tablet (20 sources) Benzodiazepine Start: 2 End: 3 take 1 tablet by mouth once daily as needed for sleep ALPRAZolam (XANAX) 0.5 MG tablet Indications: Anxiety Take 1 (one) tablet (0.5 mg total) by mouth nightly as needed for sleep . 7 tablet 06/21/2023 Active Start: 01-03-2020 take 1 tablet by aleksandar th twice daily as needed for anxiety ALPRAZolam 0.5 MG Oral Tablet Take 1 tab PO BID PRN anxiety Quantity: 15 Refills: 0 Ordered: 03-Jan-2020 Ale Caban DO Start : 03-Jan-2020 Active amoxicillin 875 mg oral tablet (20 sources) Penicillin-class Antibacterial Start: 03-23-2024 take 1 tablet by mouth twice daily amoxicillin (AMOXIL) 875 mg tablet 1 tablet Oral Twice a day for 90 days 03/23/2024 Active amoxicillin 875 mg / clavulanate 125 mg oral tablet (2 sources) Penicillin-class Antibacterial Start: 04-13-2024 Amoxicillin-Pot Clavulanate 875-125 mg tablet Active 1 {tbl} PO TWICE A DAY April 13, 2024 12:00am aspirin 81 mg oral tablet (20 sources) Platelet Aggregation Inhibitor, Nonsteroidal Anti-inflammatory Drug Start: 01-18-2024 take 1 capsule by mouth once daily Aspirin 81 mg capsule Active 81 mg PO DAILY January 18, 2024 1:00am [facility] Tiange On Hold: Resume on 02/04/24. Start: 08-05-2021 End: 08-05-2022 aspirin 81 mg chewable table t Chew and Swallow 1 (one) tablet (81 mg total) daily . 30 tablet 11 08/05/2021 08/05/2022 Active take 1 tablet by aleksandar th once daily aspirin 81 MG EC tablet Take 1 (one) tablet (81 mg total) by mouth daily . Active Comment on above: Take 81 mg by mouth once daily. aspirin 81 mg / calcium carbonate 777 mg oral tablet (8 sources) Platelet Aggregation Inhibitor, Nonsteroidal Anti-inflammatory Drug Start: aspirin-calcium carbonate 81 mg-300 mg calcium(777 mg) Tab Take 81 mg by mouth . 0 11/17/2016 Active atorvastatin 80 mg oral tablet (20 sources) HMG-CoA Reductase Inhibitor Start: take 1 tablet by mouth once daily Atorvastatin 80 mg tablet Active 80 mg PO daily April 13, 2024 12:00am Start: 02-20-2024 take 2 tablets by mo uth once daily atorvastatin (LIPITOR) 40 MG tablet Take 80 mg by mouth daily. 0 02/20/2024 Active Start: 12-15-2023 End: 04-13-2024 take 1 tablet by mouth once daily Atorvastatin 10 mg tablet Discontinued 10 mg PO DAILY December 15, 2023 1:00am April 13, 2024 9:59am HYPERLIPIDEMIA Start: 05-31-2014 End: 10-26-2023 take 1 tablet by mouth once daily Atorvastatin 80 mg tablet Active 80 mg PO daily April 13, 2024 12:00am take 1 tablet by aleksandar th once daily atorvastatin 10 mg oral tablet ; 1 tab(s) orally once a day Quantity: 0 Refills: 0 Ordered: 22-Jun-2023 Kristyn Calderon Generic Substitution Allowed Comment on above: Take 80 mg by mouth once daily. bumetanide 2 mg oral tablet (20 sources) Loop Diuretic Start: 01-18-2024 take 1 tablet by mouth once daily Bumetanide 2 mg tablet Active 2 mg PO DAILY January 18, 2024 1:00am EDEMA Start: 02-01-2023 take 1 tablet by aleksandar th twice daily bumetanide (BUMEX) 1 MG tablet Take 1 (one) tablet (1 mg total) by mouth 2 (two) times a day for 5 days . 10 tablet 0 02/01/2023 Active Start: 04-21-2022 End: 06-20-2024 take 1 tablet by mouth once daily at breakfast bumetanide (BUMEX) 1 MG tablet Indications: 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) Take 1 (one) tablet (1 mg total) by mouth daily with breakfast . 90 tablet 3 06/21/2023 06/20/2024 Active Start: 01-19-2022 End: 01-19-2023 take 1 tablet by mouth once daily bumetanide (BUMEX) 0.5 MG tablet Take 1 (one) tablet (0.5 mg total) by mouth nightly . 90 tablet 3 01/19/2022 Active Start: 11-03-2021 End: 11-16-2022 take 1 tablet by mouth twice daily bumetanide (BUMEX) 1 MG tablet Indications: 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) Take 1 (one) tablet (1 mg total) by mouth 2 (two) times a day . 180 tablet 3 11/16/2021 01/19/2022 Discontinued Start: 01-23-2021 End: 02-17-2022 take 1 tablet by mouth once daily bumetanide (BUMEX) 2 MG tablet Indications: Acute combined systolic and diastolic congestive heart failure (HCC) Take 1 (one) tablet (2 mg total) by mouth daily . 90 tablet 3 02/17/2021 02/17/2022 Active Comment on above: Take 2 mg by mouth o nce daily. cephalexin 500 mg oral capsule (4 sources) Cephalosporin Antibacterial Start: 2 End: 2 take 1 capsule by mouth twice daily cephALEXin (KEFLEX) 500 MG capsule Take 1 (one) capsule (500 mg total) by mouth 2 (two) times a day for 5 days . 10 capsule 0 05/25/2022 05/30/2022 Active clobetasol propionate 0.5 mg/ml topical cream (20 sources) Corticosteroid Start: clobetasol (TEMOVATE) 0.05 % cream 1 Application. 08/08/2024 Active clobetasoL (ERNESTO VATE) 0.05 % cream Apply topically as needed . Active custom prescription (e-prescribable) (20 sources) Start: 03-01-2023 custom prescription (e-prescribable) TLSO lorraine . 1 each 0 03/01/2023 Active cyanocobalamin, vitamin B-12, (VITAMIN B-12 ORAL) (5 sources) cyanocobalamin, vitamin B-12, (VITAMIN B-12 ORAL) Take by mouth . Active ergocalciferol 72265 unt oral capsule (7 sources) Provitamin D2 Compound Start: 01-12-2021 End: 01-13-2022 take 1 capsule by mouth every week ergocalciferol (ERGOCALCIFEROL) 1,250 mcg (50,000 unit) capsule Indications: Osteoporosis, unspecified osteoporosis type, unspecified pathological fracture presence , Vitamin D deficiency Take 1 (one) capsule (50,000 Units total) by mouth once a week . 13 capsule 1 01/13/2021 01/13/2022 Active escitalopram 20 mg oral tablet (20 sources) Serotonin Reuptake Inhibitor Start: 12-15-2023 take 1 tablet by mouth once daily Escitalopram Oxalate 20 mg tablet Active 20 mg PO DAILY December 15, 2023 1:00am ANXIETY Start: 02-01-2023 End: 01-13-2025 take 1 tablet by mouth once daily escitalopram oxalate (LEXAPRO) 10 MG tablet Take 1 (one) tablet (10 mg total) by mouth daily . 90 tablet 3 08/01/2023 01/13/2025 Discontinued (Patient's Request) Start: 07-21-2022 End: 07-21-2023 take 2 tablets by mouth once daily escitalopram oxalate (LEXAPRO) 5 MG tablet Take 2 (two) tablets (10 mg total) by mouth daily . 60 tablet 11 07/21/2022 10/26/2022 Discontinued Start: 06-22-2022 End: 01-29-2025 take 1 tablet by mouth once daily escitalopram oxalate (LEXAPRO) 5 MG tablet Take 1 (one) tablet (5 mg total) by mouth daily . 30 tablet 11 06/22/2022 07/21/2022 Discontinued Comment on above: Take 5 mg by mouth o nce daily. 24 hr isosorbide mononitrate 30 mg extended release oral tablet (20 sources) Nitrate Vasodilator Start: take 1 tablet by mouth once daily, then take 1 tablet by mouth every twenty-four hours Isosorbide Mononitrate 30 mg tablet extended release 24 hr Active 30 mg PO DAILY February 01, 2024 12:00am Start: 06-23-2015 End: 01-17-2024 take 1 tablet by mouth once daily, then take 1 tablet by mouth once daily isosorbide mononitrate ER (IMDUR) 30 mg 24 hr tablet Take 1 tablet by mouth once daily. take one tablet daily 0 06/23/2015 Active Comment on above: Take 1 tablet by aleksandar once daily. take one tablet daily ketorolac tromethamine 10 mg oral tablet (4 sources) Nonsteroidal Anti-inflammatory Drug, Cyclooxygenase Inhibitor Start: 02-24-20 End: 02-29-20 23 take 1 tablet by mouth every six hours as needed for pain ketorolac (TORADOL) 10 mg tablet Take 1 (one) tablet (10 mg total) by mouth every 6 (six) hours as needed for pain . 20 tablet 0 02/23/2023 02/28/2023 Active lactobacillus combination no.4 (Probiotic) 3 billion cell cap (5 sources) lactobacillus combination no.4 (Probiotic) 3 billion cell cap Take by mouth . Active lamoTRIgine 200 mg oral tablet (20 sources) Mood Stabilizer, Anti-epileptic Agent Start: 11-17-19 End: 06-20-20 24 take 1 tablet by mouth once daily Lamotrigine 200 mg tablet Active 200 mg PO DAILY December 15, 2023 1:00am BIPOLAR take 1 tablet by mouth once dominguez y lamoTRIgine 200 mg oral tablet, extended release ; 1 tab(s) orally once a day Quantity: 0 Refills: 0 Ordered: 22-Jun-2023 Kristyn Calderon Generic Substitution Allowed Comment on above: Take 200 mg by mouth once daily. lisinopril 2.5 mg oral tablet (20 sources) Angiotensin Converting Enzyme Inhibitor Start: 01-18-2024 take 1.25 mg by mouth once daily Lisinopril 2.5 mg tablet Active 1.25 mg PO DAILY January 18, 2024 1:00am HTN Start: 01-18-2024 take 1.25 mg by mouth once brayan ly Lisinopril Active 1.25 MG PO DAILY January 18, 2024 1:00am Start: 08-05-2021 End: 06-20-2024 take 0.5 tablet by mouth once daily lisinopriL (PRINIVIL,ZESTRIL) 2.5 MG tablet Take 0.5 (one-half) tablet (1.25 mg total) by mouth daily . 45 tablet 3 06/21/2023 Active Start: 05-19-2021 take 0.5 tablet by m outh once daily Lisinopril 2.5 MG Oral Tablet take 1/2 tablet daily Quantity: 45 Refills: 3 Ordered: 19-May-2021 Ale Caban DO Start : 19-May-2021 Active Start: 11-17-2016 take 1.25 mg by mouth once brayan ly lisinopriL (PRINIVIL,ZESTRIL) 2.5 MG tablet Take 1.25 mg by mouth daily . 0 11/17/2016 Active Start: 11-17-2016 take 1 tablet by aleksandar th once daily lisinopriL (PRINIVIL,ZESTRIL) 2.5 MG tablet Take 2.5 mg by mouth daily . 0 11/17/2016 Active take 0.5 tablet by m outh once daily lisinopril 2.5 mg tablet Takes one-half tablet by mouth daily Active Comment on above: Take 1.25 mg by mout h once daily. Takes one-half tablet Takes one-half table t by mouth daily meloxicam 15 mg oral tablet (20 sources) Nonsteroidal Anti-inflammatory Drug Start: 08-13-2024 End: 08-13-2025 take 1 tablet by mouth once daily meloxicam (MOBIC) 15 MG tablet Take 1 (one) tablet (15 mg total) by mouth daily . 30 tablet 3 08/13/2024 08/13/2025 Active Start: 11-03-2021 End: 04-16-2025 take 1 tablet by mouth once daily Meloxicam 15 mg tablet Discontinued 15 mg PO DAILY 30 February 01, 2024 12:00am April 13, 2024 10:00am Start: 02-26-2020 take 1-2 tablets by mouth once daily Meloxicam 7.5 MG Oral Tablet take 1-2 tablet by mouth once daily Quantity: 30 Refills: 3 Ordered: 20-May-2020 Ale Caban DO Start : 26-Feb-2020 Active methylPREDNISolone (4 sources) Corticosteroid Start: 06-23-2023 End: 06-29-2023 methylPREDNISolone (MEDROL DOSEPACK) 4 mg tablet Follow package directions . 21 tablet 0 06/23/2023 06/29/2023 Active Start: 11-03-2021 End: 11-09-2021 methylPREDNISolone (MEDROL D OSEPACK) 4 mg tablet Indications: Acute midline low back pain without sciatica Follow package directions . 21 tablet 0 11/03/2021 11/09/2021 Active multivitamin with minerals ( HAIR,SKIN AND NAILS ORAL) (20 sources) multivitamin wit h minerals (HAIR,SKIN AND NAILS ORAL) Take by mouth once daily. Active multivitamin wit h minerals (HAIR,SKIN AND NAILS ORAL) Take by mouth once daily. 0 Active Comment on above: Take by mouth once d aily. Multivitamin With Minerals (Hair,Skin And Nails) tablet (2 sources) Start: 04-13-20 Multivitamin With Minerals (Hair,Skin And Nails) tablet Active 1 {tbl} PO DAILY April 13, 2024 12:00am multivitamin with minerals tablet (5 sources) take 1 tablet by mouth once daily multivitamin with minerals tablet Take 1 (one) tablet by mouth daily . Active ondansetron 4 mg disintegrating oral tablet (1 source) Serotonin-3 Receptor Antagonist Start: 06-07-20 24 take 1 tablet by mouth every eight hours for nausea ondansetron ODT (Zofran-ODT) 4 mg disintegrating tablet Indications: Migraine without status migrainosus, not intractable, unspecified migraine type Take 1 tablet (4 mg) by mouth every 8 hours if needed for nausea or vomiting. 30 tablet 06/07/2024 Active oxyCODONE hydrochloride 5 mg oral tablet (10 sources) Opioid Agonist Start: 02-01-20 24 take 2.5-5 mg by mouth every six hours as needed for pain Oxycodone 5 mg Tablet Active 2.5 - 5 mg PO EVERY 6 HOURS as needed for pain 28 7 0 February 01, 2024 Status post hardware removal Other specified postprocedural states pantoprazole 20 mg delayed release oral tablet (20 sources) Proton Pump Inhibitor Start: 12-15-19 take 1 tablet by mouth once daily Pantoprazole 20 mg tablet,delayed release (DR/EC) Active 20 mg PO DAILY December 15, 2023 1:00am GERD Start: 05-02-2018 End: 06-20-2024 take 1 tablet by mouth once daily pantoprazole (PROTONIX) 40 MG tablet Take 1 (one) tablet (40 mg total) by mouth daily . 90 tablet 3 06/21/2023 Active Comment on above: Take 40 mg by mouth once daily. perflutren lipid microspheres 1.3 mL in NaCl (PF) 0.9% 10 mL injection (DEFINITY) (5 sources) Start: 12-25-2021 End: 03-26-2023 perflutren lipid microspheres 1.3 mL in NaCl (PF) 0.9% 10 mL injection (DEFINITY) potassium chloride 10 meq extended release oral tablet (7 sources) Start: 02-20-2021 End: 02-20-2022 take 2 tablets by mouth once daily potassium chloride 10 MEQ CR tablet Take 2 (two) tablets (20 mEq total) by mouth daily . 180 tablet 3 02/20/2021 02/20/2022 Active Start: 01-29-2021 End: 02-20-2022 take 2 tablets by mouth every twenty-four hours potassium chloride (K-TAB) 10 mEq tablet Take 20 mEq by mouth q 24 HR. 0 01/29/2021 02/20/2022 Active Start: 01-29-2021 End: 01-29-2022 take 1 tablet by mouth once daily potassium chloride 1 0 MEQ CR tablet Take 1 (one) tablet (10 mEq total) by mouth daily . 30 tablet 11 01/29/2021 02/20/2021 Discontinued (Reorder) Comment on above: Take 20 mEq by mouth q 24 HR. pramipexole dihydrochloride 1.5 mg oral tablet (20 sources) Nonergot Dopamine Agonist Start: take 1 tablet by mouth once daily at bedtime pramipexole (MIRAPEX) 1.5 mg tablet Take 1.5 mg by mouth daily at bedtime. 08/15/2024 Active Start: 01-11-2018 take 1 tablet by aleksandar th at bedtime Pramipexole Dihydrochloride 0.5 MG Oral Tablet TAKE 1 TABLET AT BEDTIME. Quantity: 90 Refills: 3 Ordered: 05-Aug-2020 Ale Caban DO Start : 11-Jan-2018 Active salmon calcitonin 200 unt/actuat nasal spray (20 sources) Calcitonin Start: 05-17-2023 calcitonin, sa lmon, (MIACALCIN) 200 unit/actuation nasal spray Start: 05-16-2023 End: 06-26-2023 calcitonin, salmon, (Miacalc in) 200 UNIT/ACT nasal spray Administer 1 spray into one nostril daily. 3.7 mL 0 05/16/2023 06/26/2023 Active 125 ml sodium chloride 9 mg/ ml prefilled syringe (19 sources) Start: 12-25-2021 End: 03-26-2023 sodium chloride 0.9 % (flush ) 10 mL (BD POSIFLUSH) End: 03-23-2024 sodium chloride 0.9 % (NS) s olution Infuse 10 mL into a venous catheter daily. Flush line with 10 mL normal saline before and after medication administration. Flush line with 20 mL normal saline after blood draw or TPN. 0 03/23/2024 Discontinued (Therapy completed) sulfamethoxazole 800 mg / trimethoprim 160 mg oral tablet (1 source) Dihydrofolate Reductase Inhibitor Antibacterial, Sulfonamide Antimicrobial Start: 07-21-2022 End: 07-28-2022 take 1 tablet by mouth twice daily sulfamethoxazole-trimethoprim (BACTRIM DS,SEPTRA DS) 800-160 mg per tablet Take 1 (one) tablet by mouth 2 (two) times a day for 7 days . 14 tablet 0 07/21/2022 07/28/2022 Active SUMAtriptan 50 mg oral tablet (16 sources) Serotonin-1b and Serotonin-1d Receptor Agonist Start: 01-12-2021 End: 02-06-2022 take 1 tablet by mouth every two hours as needed SUMAtriptan (IMITREX) 50 MG tablet Take 1 (one) tablet (50 mg total) by mouth every 2 (two) hours as needed for migraine Max of 200 mg in 24hrs . 10 tablet 0 08/24/2021 Active tiZANidine 4 mg oral tablet (20 sources) Central alpha-2 Adrenergic Agonist Start: 08-03-2023 End: 08-02-2024 tiZANidine (Zanaflex) 4 MG tablet Take 1.5 (one and a half) tablets (6 mg total) by mouth 3 (three) times a day . 135 tablet 0 08/03/2023 08/02/2024 Active Start: 08-01-2023 End: 08-03-2023 take 1 capsule by mouth three times daily as needed for muscle spasms tiZANidine (Zanaflex) 6 MG capsule Take 1 (one) capsule (6 mg total) by mouth 3 (three) times a day as needed for muscle spasms . 90 capsule 0 08/01/2023 08/03/2023 Discontinued Start: 08-05-2021 take 1 tablet by aleksandar twice daily as needed for muscle spasms tiZANidine (ZANAFLEX) 4 MG tablet Take 1 (one) tablet (4 mg total) by mouth 2 (two) times a day as needed for muscle spasms . 180 tablet 3 08/05/2021 Active End: 12-25-2020 tiZANidine (ZANAFLEX) 4 MG c apsule Take by mouth 3 (three) times a day . 0 12/25/2020 Discontinued traMADol hydrochloride 50 mg oral tablet (13 sources) Opioid Agonist Start: 08-23-2022 End: 08-26-2022 take 1 tablet by mouth every eight hours as needed for pain traMADoL (ULTRAM) 50 mg tablet Indications: Degeneration of lumbar intervertebral disc Take 1 (one) tablet (50 mg total) by mouth every 8 (eight) hours as needed for pain . 10 tablet 0 08/23/2022 08/26/2022 Active Start: 05-21-2022 End: 07-21-2022 traMADoL (ULTRAM) 50 mg tabl et traZODone hydrochloride 100 mg oral tablet (20 sources) Serotonin Reuptake Inhibitor Start: 01-18-2024 take 2 tablets by mouth at bedtime Trazodone 100 mg tablet Active 200 mg PO AT BEDTIME January 18, 2024 1:00am SLEEP Start: 01-18-2024 take 200 mg by mouth at bedtim e Trazodone Active 200 MG PO AT BEDTIME January 18, 2024 1:00am Start: 01-12-2021 End: 01-17-2023 take 2 tablets by mouth at bedtime Trazodone 100 mg tablet Active 200 mg PO AT BEDTIME January 18, 2024 1:00am Start: 12-04-2020 End: 01-12-2021 traZODone (DESYREL) 100 MG t ablet Take 150 mg by mouth nightly . 0 12/04/2020 01/12/2021 Discontinued (Reorder) Start: 01-03-2020 take 1.5 tablets by mouth at bedtime traZODone HCl - 100 MG Oral Tablet TAKE 1.5 TABS BY MOUTH AT BEDTIME Quantity: 135 Refills: 3 Ordered: 29-Jul-2020 Ale Caban DO Start : 03-Jan-2020 Active Start: 01-11-2018 traZODone HCl - 50 MG Oral Tablet TAKE 1 AND 1/2 TABLETS BY MOUTH ONCE A DAY AT BEDTIME Quantity: 135 Refills: 3 Ordered: 19-Aug-2020 Ale Caban DO Start : 11-Jan-2018 Active Comment on above: Take 200 mg by mouth daily at bedtime. Take 100 mg by mouth daily at bedtime. 2 tabs at bedtime venlafaxine 37.5 mg oral tablet (2 sources) Serotonin and Norepinephrine Reuptake Inhibitor Start: 01-18-20 End: 01-18-20 take 1 tablet by mouth twice daily venlafaxine (EFFEXOR) 37.5 MG tablet Take 1 (one) tablet (37.5 mg total) by mouth 2 (two) times a day . 60 tablet 11 01/17/2023 01/17/2023 Discontinued vit B complex no.12/niacin,B3, (VITAMIN B COMPLEX NO.12-NIACIN ORAL) (20 sources) vit B complex no.12/niacin,B3, (VITAMIN B COMPLEX NO.12-NIACIN ORAL) Take by mouth once daily. Active vit B complex no .12/niacin,B3, (VITAMIN B COMPLEX NO.12-NIACIN ORAL) Take by mouth once daily. 0 Active Comment on above: Take by mouth once d aily. vitamin B12 (1 source) Vitamin B12 take 1 tablet by mouth once daily Vitamin B12 ; 1 tab(s) orally once a day Quantity: 0 Refills: 0 Ordered: 22-Jun-2023 Kristyn Calderon Generic Substitution Allowed Completed/Discontinued Medications Medication Drug Class(es) Dates Sig (Normalized) Sig (Original) acetaminophen 500 mg oral tablet (12 sources) Start: 02-01-2024 End: 01-13-2025 take 1 tablet by mouth every six hours Acetaminophen 500 mg Tablet Discontinued 500 mg PO EVERY 6 HOURS 28 7 0 February 01, 2024 12:00am April 13, 2024 9:58am acetaminophen 300 mg / codeine phosphate 30 mg oral tablet (4 sources) Opioid Agonist Start: 04-22-2020 take 1 tablet by mouth four times daily as needed for pain Acetaminophen-Codei ne 300-30 MG Oral Tablet TAKE 1 TABLET 4 TIMES DAILY NEEDED FOR PAIN. Quantity: 30 Refills: 0 Ordered: 22-Apr-2020 Ale Caban DO Start : 22-Apr-2020 Active End: 12-25-2020 take 1 tablet by mouth every six hours as needed acetaminophen-codeine (TYLENOL #3) 300-3 0 mg per tablet Take 1 tablet by mouth every 6 (six) hours as needed . 0 12/25/2020 Discontinued [id number] 200 actuat albuterol 0.09 mg/actuat metered dose inhaler (10 sources) beta2-Adrenergic Agonist Start: 11-01-2019 take 1-2 puff(s) by inhalation every four to six hours as needed Ventolin HFA 108 (90 Base) MCG/ACT Inhalation Aerosol Solution INHALE 1 TO 2 PUFFS EVERY 4 TO 6 HOURS NEEDED. Quantity: 1 Refills: 6 Ordered: 01-Nov-2019 Ale Caban DO Start : 01-Nov-2019 Active Start: 11-01-2019 take 1-2 puff(s) by inhalation every four to six hours as needed Ventolin HFA 108 (90 Base) MCG/ACT Inhalation Aerosol Solution INHALE 1 TO 2 PUFFS EVERY 4 TO 6 HOURS NEEDED. Quantity: 1 Refills: 6 Ale Caban DO Start : 01-Nov-2019 Active 8 GM Inhaler Start: 11-01-2019 take 1-2 puff(s) by inhalation every four to six hours as needed Ventolin HFA 108 (90 Base) MCG/ACT Inhalation Aerosol Solution INHALE 1 TO 2 PUFFS EVERY 4 TO 6 HOURS NEEDED. Quantity: 1 Refills: 6 Ale Caban DO Start : 01-Nov-2019 Active 8 GM Inhaler Start: 10-31-2019 take 1-2 puff(s) by inhalation every six hours as needed Albuterol Sulfate HFA 108 (90 Base) MCG/ACT Inhalation Aerosol Solution INHALE 1 TO 2 PUFFS EVERY 6 HOURS NEEDED. Quantity: 1 Refills: 0 Ordered: 23-Nov-2019 Ale Caban DO Start : 31-Oct-2019 Active Start: 10-31-2019 take 1-2 puff(s) by inhalation every six hours as needed Albuterol Sulfate HFA 108 (90 Base) MCG/ACT Inhalation Aerosol Solution INHALE 1 TO 2 PUFFS EVERY 6 HOURS NEEDED. Quantity: 1 Refills: 0 Ale Caban DO Start : 31-Oct-2019 Active 8.5 GM Inhaler amitriptyline hydrochloride 10 mg oral tablet (4 sources) Tricyclic Antidepressant Start: 01-20-2022 End: 10-26-2023 take 1 tablet by mouth once daily amitriptyline (ELAVIL) 10 MG tablet Take 1 (one) tablet (10 mg total) by mouth nightly FOR MIGRAINES . 30 tablet 0 10/26/2022 01/17/2023 Discontinued ARIPiprazole 2 mg oral tablet (9 sources) Atypical Antipsychotic Start: 01-03-2020 End: 12-25-2020 take 1 tablet by mouth once daily ARIPiprazole 2 MG Oral Tablet TAKE 1 TABLET BY MOUTH EVERY DAY Quantity: 90 Refills: 1 Ordered: 29-Apr-2020 Ale Caban DO Start : 03-Jan-2020 Active azithromycin 250 mg oral tablet (3 sources) Macrolide Antimicrobial Start: 02-27-2020 Azithromycin 250 MG Oral Tablet TAKE DIRECTED PER PACKAGE INSTRUCTIONS. Quantity: 1 Refills: 1 Ordered: 27-Feb-2020 Ale Caban DO Start : 27-Feb-2020 Active Start: 02-27-2020 take 1 tablet by mouth once Az ithromycin 250 MG Oral Tablet TAKE DIRECTED PER PACKAGE INSTRUCTIONS. Quantity: 1 Refills: 1 Ale Caban DO Start : 27-Feb-2020 Active 6 Tablet Pack baclofen 10 mg oral tablet (1 source) gamma-Aminobutyric Acid-ergic Agonist Start: 05-25-2023 End: 06-21-2023 baclofen (LIORESAL) 10 MG tablet biotin 1 mg oral capsule (16 sources) Start: 01-18-2024 End: 04-13-2024 take 1 capsule by mouth once daily Biotin 1 mg capsule Discontinued 1 mg PO DAILY January 18, 2024 1:00am April 13, 2024 9:59am SUPPLEMENT Bupivacaine (8 sources) Amide Local Anesthetic Start: 01-22-2025 End: 01-22-2025 BUPivacaine HCl (MARCAINE) 0.5 % (5 mg/mL) injection 1 mL Start: 01-22-2025 End: 01-22-2025 1 mL, Injection, Once, On 01/22/25 at 1700, For 1 dose Start: 12-12-2024 End: 12-12-2024 BUPivacaine HCl (MARCAINE) 0 .5 % (5 mg/mL) injection 1 mL Start: 12-12-2024 End: 12-12-2024 1 mL, Injection, Once, On 12/12/24 at 1115, For 1 dose busPIRone hydrochloride 10 mg oral tablet (7 sources) Start: 05-25-2022 End: 05-25-2023 take 1 tablet by mouth three times daily busPIRone (BUSPAR) 10 MG tablet Take 1 (one) tablet (10 mg total) by mouth 3 (three) times a day . 90 tablet 11 05/25/2022 06/22/2022 Discontinued (Ineffective) cefTRIAXone 2000 mg injection (20 sources) Cephalosporin Antibacterial Start: 02-16-2024 End: 04-13-2024 inject 2 g by intramuscular injection once daily Ceftriaxone 2 gram recon soln Discontinued 2 g IM DAILY February 16, 2024 12:00am April 13, 2024 10:00am Start: 02-14-2024 End: 03-23-2024 take 2 g intravenously every twenty-four hours cefTRIAXone 2 gram SolR 2 g by intravenous push route daily. Give over 10 mins 0 02/14/2024 03/23/2024 Discontinued (Therapy completed) clonazePAM 0.5 mg disintegrating oral tablet (1 source) Benzodiazepine Start: 09-26-2023 End: 09-26-2023 clonazePAM orally disintegrating 0.5 mg tab(s) (KlonoPIN WAFER) cyclobenzaprine hydrochloride 5 mg oral tablet (3 sources) Muscle Relaxant Start: 05-16-2023 End: 06-21-2023 cyclobenzaprine (FLEXERIL) 5 MG tablet 1 ml dexamethasone phosphate 4 mg/ml injection (6 sources) Corticosteroid Start: 01-22-2025 End: 01-22-2025 dexAMETHasone (DECADRON) injection 4 mg Start: 01-22-2025 End: 01-22-2025 4 mg, Intra-articular, Once, On 01/22/25 at 1700, For 1 dose Start: 01-22-2025 End: 01-22-2025 dexAMETHasone (DECADRON) inj ection 4 mg Start: 01-22-2025 End: 01-22-2025 4 mg, Intra-articular, Once, On 01/22/25 at 1700, For 1 dose Start: 01-22-2025 End: 01-22-2025 dexAMETHasone (DECADRON) inj ection 4 mg Start: 01-22-2025 End: 01-22-2025 4 mg, Intra-articular, Once, On Tue01/22/25 at 1700, For 1 dose diphenhydrAMINE hydrochloride 50 mg oral capsule (7 sources) Histamine-1 Receptor Antagonist Start: 09-21-2023 diphenhydrAMINE (BENADRYL) 50 mg capsule Take 50 mg one hour prior to injection 1 capsule 0 09/21/2023 Active Start: 12-25-2021 End: 08-12-2022 take 1 capsule by mouth every hour diphenhydrAMINE (BENADRYL) 50 mg capsule Diphenhydramine 50 mg oral hour prior to contrast administration. 1 capsule 0 12/25/2021 08/12/2022 Discontinued End: 01-12-2021 take 4 tablets by mouth once daily diphenhydrAMINE (BENADRYL) 25 mg tablet Take 100 mg by mouth nightly . 0 01/12/2021 Discontinued Comment on above: Diphenhydramine 50 m g oral hour prior to contrast administration. Take 50 mg one hour prior to injection furosemide 40 mg oral tablet (16 sources) Loop Diuretic Start: 08-24-20 End: 08-24-20 take 1 tablet by mouth twice daily furosemide (LASIX) 40 MG tablet Take 1 (one) tablet (40 mg total) by mouth 2 (two) times a day . 180 tablet 3 08/24/2021 11/03/2021 Discontinued Start: 10-03-2019 End: 02-17-2021 take 1 tablet by mouth once daily Furosemide 20 MG Oral Tablet TAKE 1 TABLET DAILY. Quantity: 90 Refills: 1 Ordered: 20-May-2020 Arsh CHACKOAle Start : 03-Oct-2019 Active Start: 10-03-2019 take 0.5 tablet by m outh once daily as needed Furosemide 20 MG Oral Tablet TAKE 0.5 TABLET DAILY NEEDED. Quantity: 30 Refills: 3 Janiceharpreetaiden Ale Start : 03-Oct-2019 Active gabapentin 300 mg oral capsule (15 sources) Anti-epileptic Agent Start: 06-22-2022 End: 06-21-2023 gabapentin (NEURONTIN) 300 MG capsule Start: 05-19-2022 End: 06-22-2022 take 1 capsule by mouth once daily gabapentin (NEURONTIN) 300 MG capsule Take 1 (one) capsule (300 mg total) by mouth nightly . 30 capsule 0 05/19/2022 06/22/2022 Discontinued Start: 01-14-2022 End: 02-13-2022 take 1 capsule by mouth once daily gabapentin (NEURONTIN) 300 MG capsule Indications: Migraine with status migrainosus, not intractable, unspecified migraine type Take 1 (one) capsule (300 mg total) by mouth nightly . 30 capsule 0 01/14/2022 02/13/2022 Active 1 ml HYDROmorphone hydrochloride 1 mg/ml cartridge (2 sources) Opioid Agonist Start: 05-16-2023 End: 05-16-2023 HYDROmorphone (Dilaudid) injection 0.5 mg hydrOXYzine pamoate 25 mg oral capsule (9 sources) Antihistamine Start: 06-03-2022 End: 06-29-2023 take 1 capsule by mouth three times daily as needed for anxiety hydrOXYzine (VISTARIL) 25 MG capsule Take 1 (one) capsule (25 mg total) by mouth 3 (three) times a day as needed for anxiety . 30 capsule 0 06/29/2022 07/21/2022 Discontinued (Side effects) ibuprofen 600 mg oral tablet (5 sources) Nonsteroidal Anti-inflammatory Drug Start: 06-10-2019 End: 11-03-2022 take 1 tablet by mouth every six hours as needed ibuprofen (MOTRIN) 600 mg tablet Take 1 tablet by mouth every 6 hours as needed. 15 tablet 0 06/10/2019 11/03/2022 Discontinued Comment on above: Take 1 tablet by aleksandar th every 6 hours as needed. meclizine hydrochloride 25 mg oral tablet (14 sources) Antiemetic Start: 12-14-2021 End: 01-13-2022 take 0.5 tablet by mouth three times daily as needed for nausea meclizine (ANTIVERT) 25 mg tablet Take 0.5 (one-half) tablet (12.5 mg total) by mouth 3 (three) times a day as needed for nausea . 30 tablet 1 12/14/2021 01/13/2022 Discontinued methocarbamol 750 mg oral tablet (15 sources) Muscle Relaxant Start: 02-16-2024 End: 04-13-2024 take 1 tablet by mouth three times daily Methocarbamol 750 mg tablet Discontinued 750 mg PO THREE TIMES A DAY February 16, 2024 12:00am April 13, 2024 10:01am Start: 02-01-2024 End: 04-13-2024 take 1 tablet by mouth three times daily Methocarbamol 500 mg tablet Discontinued 500 mg PO THREE TIMES A DAY February 01, 2024 12:00am April 13, 2024 10:01am montelukast 10 mg oral tablet (4 sources) Leukotriene Receptor Antagonist Start: 02-26-2020 take 1 tablet by mouth at bedtime Montelukast Sodium 10 MG Oral Tablet TAKE 1 TABLET AT BEDTIME. Quantity: 30 Refills: 11 Ordered: 29-Jul-2020 Ale Caban DO Start : 26-Feb-2020 Active naproxen sodium 220 mg oral capsule (11 sources) Nonsteroidal Anti-inflammatory Drug Start: 03-05-2024 End: 01-13-2025 take 2 capsules by mouth once daily naproxen sodium (Aleve) 220 mg cap Take 440 mg by mouth daily. 03/05/2024 01/13/2025 Discontinued (Patient's Request) 2 ml orphenadrine citrate 30 mg/ml injection (2 sources) Muscle Relaxant Start: 05-16-2023 End: 05-16-2023 orphenadrine (Norflex) injection 60 mg predniSONE 50 mg oral tablet (9 sources) Start: 09-14-2023 predniSONE (DELTASONE) 50 mg Take one 50 mg tablet 13 hours prior, one 50 mg tablet 7 hours prior, and one 50 mg tablet 1 hour prior to injection 3 tablet 0 09/21/2023 Active Start: 12-29-2021 End: 01-03-2022 take 1 tablet by mouth once daily predniSONE (DELTASONE) 20 MG tablet Take 1 (one) tablet (20 mg total) by mouth daily for 5 days . 5 tablet 0 12/29/2021 01/03/2022 Active Start: 12-25-2021 End: 08-12-2022 predniSONE (DELTASONE) 50 mg Oral prednisone 50 mg at 13, 7, and 1 hour prior to contrast administration. 5 tablet 0 12/25/2021 08/12/2022 Discontinued Comment on above: Oral prednisone 50 m g at 13, 7, and 1 hour prior to contrast administration. Take one 50 mg table t 13 hours prior, one 50 mg tablet 7 hours prior, and one 50 mg tablet 1 hour prior to injection QUEtiapine 25 mg oral tablet (5 sources) Atypical Antipsychotic Start: take 1 tablet by mouth once daily at bedtime QUEtiapine Fumarate 25 MG Oral Tablet TAKE 1 TABLET BY MOUTH EVERYDAY AT BEDTIME Quantity: 90 Refills: 1 Ordered: 17-Jan-2020 Ael Caban DO Start : 17-Jan-2020 Active rimegepant 75 mg disintegrating oral tablet (15 sources) Start: 022 End: rimegepant 75 mg ODT Indications: Intractable migraine with status migrainosus, unspecified migraine type Dissolve 1 (one) tablet (75 mg total) on top of tongue as needed Do not take more than 1 dose in 24 hours . 18 tablet 0 12/15/2021 01/14/2022 Discontinued (Cost of medication) rOPINIRole 0.5 mg oral tablet (20 sources) Nonergot Dopamine Agonist Start: 023 End: 025 take 1 tablet by mouth once daily rOPINIRole (REQUIP) 0.5 MG tablet Take 1 (one) tablet (0.5 mg total) by mouth nightly . 30 tablet 2 08/01/2023 01/13/2025 Discontinued (Patient's Request) 1 ml triamcinolone acetonide 40 mg/ml injection (20 sources) Corticosteroid Start: End: triamcinolone acetonide (KENALOG-40) injection 40 mg Start: 12-12-2024 End: 12-12-2024 40 mg, Injection, Once, On W ed 12/12/24 at 1115, For 1 dose Start: 12-15-2023 End: 04-13-2024 Triamcinolone Acetonide 0.5 % cream Discontinued 1 NMA TOPICAL DAILY December 15, 2023 1:00am April 13, 2024 10:01am DRY SKIN Start: 08-01-2023 End: 07-31-2024 triamcinolone (KENALOG) 0.5 % cream Apply topically 2 (two) times a day Use on hands twice daily X 7 days . 454 g 0 08/01/2023 07/31/2024 Active Start: 04-20-2022 End: 04-21-2022 triamcinolone acetonide (KIKO ALOG-40) injection 40 mg Start: 01-19-2022 End: 01-19-2022 triamcinolone acetonide (KIKO ALOG-40) injection 40 mg Start: 01-19-2022 End: 01-19-2022 triamcinolone acetonide (KIKO ALOG-40) injection 40 mg Start: 01-19-2022 End: 01-19-2022 triamcinolone acetonide (KIKO ALOG-40) injection 40 mg Start: 01-19-2022 End: 01-19-2022 triamcinolone acetonide (KIKO ALOG-40) injection 40 mg End: 01-13-2025 triamcinolone (KENALOG) 0.5 % cream 1 Application 3 (three) times a day as needed . 01/13/2025 Discontinued (Patient's Request) ubrogepant 50 mg oral tablet (12 sources) Start: 12-21-2021 End: 01-14-2022 take 1 tablet by mouth every two hours as needed ubrogepant (UBRELVY) 50 mg Tab Take 1 (one) tablet (50 mg total) by mouth as needed May repeat dose after 2 hours Do not exceed 200mg/24h . 7 tablet 0 12/21/2021 01/14/2022 Discontinued (Cost of medication) Problems Active Problems Problem Classification Problem Date Documented Da te Episodic/Chronic Acquired foot deformities (20 sources) Acquired hallux rigidus; Translations: [Hallux rigidus, unspecified foot] Onset: 9 10-02-2009 Chronic Acute bronchitis (5 sources) Acute bronchitis; Translations: [Acute bronchitis] Episodic Anxiety disorders (20 sources) Panic attack; Translations: [Mixed anxiety and depressive disorder] Onset: 6 Resolved: 2 12-25-2020 Chronic Comment on above: follows with psychia trist; Chronic ulcer of skin (20 sources) Chronic ulcer of skin; Translations: [Non-pressure chronic ulcer of skin of other sites with unspecified severity] Onset: 9 02-28-2009 Chronic Complication of device; implant or graft (20 sources) Arteriosclerosis of arterial coronary artery bypass graft; Translations: [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] Onset: 5 12-25-2020 Chronic Complication of device; implant or graft (20 sources) Mechanical complication of internal fixation device; Translations: [Breakdown (mechanical) of internal fixation device of vertebrae, sequela] 01-10-2024 Episodic Congestive heart failure; nonhypertensive (20 sources) Acute combined systolic and diastolic heart failure; Translations: [Acute combined systolic (congestive) and diastolic (congestive) heart failure] Onset: 1 08-07-2021 Chronic Coronary atherosclerosis and other heart disease (20 sources) Coronary arteriosclerosis; Translations: [Coronary arteriosclerosis in [place] artery] Onset: 4 12-25-2020 Chronic Comment on above: Dr. Woo at [facility]; x10; Disorders of lipid metabolism (20 sources) Hyperlipidemia, unspecified; Translations: [Hypercholesterolemia] Onset: 5 12-25-2020 Chronic E Codes: Natural/environment (1 source) Exposure to other specified factors, initial encounter; Translations: [Exposure to other specified factors, initial encounter] Onset: 3 Episodic Esophageal disorders (20 sources) Gastroesophageal reflux disease; Translations: [Esophageal reflux] Onset: 1 12-25-2020 Chronic Essential hypertension (20 sources) Essential (primary) hypertension; Translations: [Benign essential hypertension] Onset: 5 12-25-2020 Chronic External Injury - Cut / Daly (2 sources) Contact with scissors, initial encounter; Translations: [Contact with scissors, initial encounter] Onset: 8 Fluid and electrolyte disorders (1 source) Hypokalemia; Translations: [Hypokalemia] Episodic Genitourinary symptoms and ill-defined conditions (2 sources) Unspecified urinary incontinence; Translations: [Unspecified urinary incontinence] Onset: 8 Chronic Headache; including migraine (20 sources) Migraine; Translations: [Migraine with aura] Onset: 1 12-25-2020 Chronic Infective arthritis and osteomyelitis (except that caused by tuberculosis or sexually transmitted disease) (20 sources) Osteomyelitis of vertebra; Translations: [Osteomyelitis of vertebra, lumbar region] Onset: 4 02-10-2024 Chronic Mood disorders (20 sources) Bipolar disorder, unspecified; Translations: [Bipolar II disorder] Onset: 6 12-25-2020 Chronic Comment on above: follows with [facility]; Nutritional deficiencies (20 sources) Vitamin D deficiency; Translations: [Vitamin D deficiency, unspecified] Onset: 1 08-07-2021 Chronic Occlusion or stenosis of precerebral arteries (2 sources) Occlusion and stenosis of unspecified carotid artery; Translations: [Occlusion and stenosis of unspecified carotid artery] Onset: 8 Chronic Open wounds of extremities (2 sources) Laceration without foreign body of left index finger without damage to nail, initial encounter; Translations: [Laceration w/o fb of l idx fngr w/o damage to nail, init] Onset: 8 Episodic Osteoarthritis (20 sources) Unspecified osteoarthritis, unspecified site; Translations: [Osteoarthritis] Onset: 9 12-25-2020 Chronic Osteoporosis (20 sources) Osteoporosis; Translations: [Osteoporosis, unspecified] Onset: 1 12-25-2020 Chronic Other aftercare (5 sources) senior care (current) use of aspirin; Translations: [senior care (current) use of opiate analgesic] Onset: 8 Episodic Other aftercare (20 sources) Drug therapy finding; Translations: [Long-term (current) use of other medications] 05-07-2021 Episodic Other aftercare (20 sources) Prescribed medication regimen behavior finding; Translations: [Long-term (current) use of other medications] 05-07-2021 Episodic Other aftercare (1 source) Other skilled nursing (current) drug therapy; Translations: [Other skilled nursing (current) drug therapy] Onset: 3 Episodic Other aftercare (2 sources) Encounter for adjustment and management of vascular access device; Translations: [Encounter for adjustment and management of vascular access device] Onset: 4 Episodic Other and ill-defined heart disease (20 sources) Right atrial enlargement; Translations: [Cardiomegaly] Onset: 1 08-07-2021 Chronic Other and ill-defined heart disease (20 sources) Heart disease; Translations: [Heart disease, unspecified] 05-07-2021 Chronic Other circulatory disease (20 sources) History of angioplasty; Translations: [Peripheral vascular angioplasty status with implants and grafts] Onset: 1 07-01-2021 Chronic Other circulatory disease (20 sources) Disorder of cardiovascular system; Translations: [Unspecified disorder of circulatory system] 05-07-2021 Episodic Other congenital anomalies (20 sources) Right metatarsus adductus; Translations: [Congenital metatarsus adductus, right foot] Onset: 1 Chronic Other connective tissue disease (4 sources) Presence of unspecified artificial knee joint; Translations: [Presence of right artificial hip joint] Onset: 8 Chronic Other connective tissue disease (20 sources) Swelling of lower limb; Translations: [Other specified soft tissue disorders] 05-04-2021 Episodic Other connective tissue disease (16 sources) History of lumbar fusion; Translations: [Arthrodesis status] 08-09-2023 Episodic Other connective tissue disease (20 sources) Arthrodesis status; Translations: [Arthrodesis status] Onset: 3 12-15-2023 Episodic Other connective tissue disease (2 sources) Pain in both feet; Translations: [Pain in right foot] 11-19-2024 Episodic Other connective tissue disease (5 sources) Pain in right foot; Translations: [Pain in right foot] 12-12-2024 Episodic Other connective tissue disease (3 sources) Swelling of limb; Translations: [Other specified soft tissue disorders] 01-29-2025 Episodic Other diseases of veins and lymphatics (7 sources) Chronic acquired lymphedema; Translations: [Lymphedema, not elsewhere classified] 03-19-2025 Chronic Other diseases of veins and lymphatics (1 source) Lymphedema; Translations: [Lymphedema, not elsewhere classified] 05-21-2025 Chronic Other diseases of veins and lymphatics (4 sources) Lymphedema, not elsewhere classified; Translations: [Lymphedema, not elsewhere classified] Onset: 5 Chronic Other diseases of veins and lymphatics (6 sources) Peripheral venous insufficiency; Translations: [Venous insufficiency (chronic) (peripheral)] 03-19-2025 Episodic Other diseases of veins and lymphatics (1 source) Venous insufficiency (chronic) (peripheral); Translations: [Venous (peripheral) insufficiency] Onset: 5 Episodic Other fractures (2 sources) Wedge compression fracture of third lumbar vertebra, initial encounter for closed fracture; Translations: [Wedge compression fracture of third lumbar vertebra, initial encounter for closed fracture] Onset: 3 Episodic Other fractures (4 sources) Unspecified fracture of third lumbar vertebra, initial encounter for closed fracture; Translations: [Unsp fracture of third lumbar vertebra, init for clos fx] Onset: 3 Episodic Other fractures (1 source) Other fracture of third lumbar vertebra, initial encounter for closed fracture; Translations: [Oth fracture of third lumbar vertebra, init for clos fx] Onset: 3 Episodic Other gastrointestinal disorders (2 sources) Dysphagia, unspecified; Translations: [Dysphagia, unspecified] Onset: 8 Episodic Other hereditary and degenerative nervous system conditions (20 sources) Restless legs; Translations: [Restless legs syndrome (RLS)] Onset: 3 08-15-2023 Chronic Other inflammatory condition of skin (2 sources) Factitial dermatitis; Translations: [Factitial dermatitis] Onset: 8 Episodic Other injuries and conditions due to external causes (2 sources) Thumb injury 04-10-2022 Episodic Comment on above: THUMB INJURY Other lower respiratory disease (2 sources) Dyspnea; Translations: [Shortness of breath] 01-29-2025 Episodic Other lower respiratory disease (1 source) Shortness of breath; Translations: [SOB (shortness of breath)] Onset: 5 Episodic Other nervous system disorders (2 sources) Other chronic pain; Translations: [Other chronic pain] Onset: 5 Chronic Other non-traumatic joint disorders (10 sources) Arthritis of knee; Translations: [Arthritis of knee, right] Onset: 1 12-25-2020 Chronic Other non-traumatic joint disorders (20 sources) Swelling of bilateral feet; Translations: [Effusion, right ankle] 05-07-2021 Episodic Other non-traumatic joint disorders (5 sources) Chronic ankle pain; Translations: [Pain in right ankle and joints of right foot] 01-13-2025 Episodic Other non-traumatic joint disorders (2 sources) Pain in left ankle and joints of left foot; Translations: [Pain in left ankle and joints of left foot] Onset: 5 Episodic Other nutritional; endocrine; and metabolic disorders (1 source) Obesity, unspecified; Translations: [Obesity, unspecified] Onset: 3 Chronic Other nutritional; endocrine; and metabolic disorders (16 sources) Obese class II; Translations: [Obesity, unspecified] Onset: 4 01-20-2024 Chronic Other nutritional; endocrine; and metabolic disorders (5 sources) Excessive thirst; Translations: [Polydipsia] Episodic Other screening for suspected conditions (not mental disorders or infectious disease) (20 sources) Patient encounter status; Translations: [Other specified vaccination] Onset: 2 Episodic Comment on above: 2016; Other screening for suspected conditions (not mental disorders or infectious disease) (20 sources) Cancer cervix screening status; Translations: [Screening for malignant neoplasms of cervix] Onset: 3 01-17-2023 Episodic Comment on above: 2016; Other skin disorders (1 source) Acquired keratoderma; Translations: [Acquired keratosis [keratoderma] palmaris et plantaris] 11-19-2024 Episodic Other skin disorders (1 source) Foot callus; Translations: [Corns and callosities] 05-21-2025 Episodic Other skin disorders (2 sources) Corns and callosities; Translations: [Corns and callosities] Onset: 5 Episodic Other upper respiratory disease (2 sources) Allergic rhinitis, unspecified; Translations: [Allergic rhinitis, unspecified] Onset: 8 Chronic Other upper respiratory disease (20 sources) Seasonal allergy; Translations: [Allergic rhinitis, cause unspecified] Onset: 1 12-25-2020 Chronic Other upper respiratory infections (8 sources) Sore throat symptom; Translations: [Acute pharyngitis] Resolved: 8 Episodic Peripheral and visceral atherosclerosis (2 sources) Peripheral vascular disease, unspecified; Translations: [Peripheral vascular disease, unspecified] Onset: 5 03-19-2025 Chronic Residual codes; unclassified (5 sources) Foot at risk; Translations: [Other specified personal history presenting hazards to health] Episodic Residual codes; unclassified (2 sources) History of operative procedure on lumbar spinal structure; Translations: [Other specified postprocedural states] 05-16-2023 Episodic Residual codes; unclassified (1 source) H/O Spinal surgery; Translations: [Other postprocedural status] 06-22-2023 Episodic Residual codes; unclassified (2 sources) Procedure and treatment not carried out due to patient leaving prior to being seen by health care provider; Translations: [Proc/trtmt not crd out d/t pt lv bef seen by [facility] care prov] Onset: 3 Episodic Residual codes; unclassified (1 source) Chronic pain; Translations: [Pain, unspecified] 10-24-2023 Episodic Residual codes; unclassified (1 source) Peripheral edema; Translations: [Localized edema] 05-21-2025 Episodic Residual codes; unclassified (2 sources) Localized edema; Translations: [Localized edema] Onset: 5 Episodic Screening or history of mental health and substance abuse (3 sources) Personal history of nicotine dependence; Translations: [Personal history of nicotine dependence] Onset: 8 Episodic Spondylosis; intervertebral disc disorders; other back problems (20 sources) Degeneration of lumbar intervertebral disc; Translations: [Degeneration of lumbar or lumbosacral intervertebral disc] Onset: 1 12-25-2020 Chronic Spondylosis; intervertebral disc disorders; other back problems (20 sources) Back problem; Translations: [Dorsopathy, unspecified] Onset: 1 05-07-2021 Episodic Comment on above: BACK PAIN Unclassified (5 sources) Patient encounter status; Translations: [History of Pre-op evaluation] Unclassified (8 sources) History of repair of hip joint; Translations: [History of repair of hip joint] Onset: 7 12-25-2020 Unclassified (1 source) Sprain of right thumb 04-10-2022 Unclassified (2 sources) FELL, STURNUM HURTS 02-14-2023 Comment on above: FELL, STURNUM HURTS Unclassified (5 sources) CAREGIVER ASSISTANCE NEEDED ([id number]) Onset: 3 05-12-2023 Unclassified (5 sources) FINANCIAL ISSUES PRESENT ([id number]) Onset: 3 05-12-2023 Unclassified (2 sources) DOCTOR REFERRAL FOR AN MRI 06-22-2023 Comment on above: DOCTOR REFERRAL FOR AN MRI Unclassified (1 source) Status post spinal surgery 06-22-2023 Unclassified (1 source) Contusion of bilateral front wall of thorax, init; Translations: [Contusion of bilateral front wall of thorax, init] Onset: 3 Unclassified (1 source) Contusion of middle front wall of thorax, initial encounter; Translations: [Contusion of middle front wall of thorax, initial encounter] Onset: 3 Unclassified (1 source) PAD (peripheral artery disease) 03-19-2025 Unclassified (2 sources) Calluses Onset: 5 Unclassified (1 source) Established Patient Onset: 5 Unclassified (1 source) Low back pain, unspecified; Translations: [Low back pain, unspecified] Onset: 4 Past or Other Problems Problem Classification Problem Date Documented Da te Episodic/Chronic Acquired foot deformities (20 sources) Abduction deformity of foot; Translations: [Valgus deformity, not elsewhere classified, right ankle] Onset: 10-27-2021 Episodic Administrative/social admission (20 sources) Financial problem; Translations: [Problem related to housing and economic circumstances, unspecified] Onset: 05-29-2022 Episodic Allergic reactions (20 sources) Allergy status to other drugs, medicaments and biological substances status; Translations: [Allergy status to penicillin] Onset: 07-06-2018 Resolved: 04-20-2022 Episodic Cardiac dysrhythmias (20 sources) Bradycardia; Translations: [Bradycardia, unspecified] Onset: 12-16-2021 Resolved: 04-27-2022 Episodic Conditions associated with dizziness or vertigo (20 sources) Vertigo; Translations: [Dizziness and giddiness] Onset: 12-16-2021 Resolved: 04-27-2022 Episodic Coronary atherosclerosis and other heart disease (12 sources) History of myocardial infarction; Translations: [History of coronary artery bypass grafting] Onset: 10-05-2015 12-25-2020 Episodic Diabetes mellitus without complication (20 sources) Impaired glucose tolerance in obese; Translations: [Impaired glucose tolerance (oral)] Onset: 01-17-2023 01-17-2023 Episodic E Codes: Struck by; against (1 source) Striking against other object with subsequent fall, initial encounter; Translations: [Striking against oth object w subsequent fall, init encntr] Onset: 02-14-2023 Episodic Hemorrhoids (20 sources) Hemorrhoids; Translations: [Unspecified hemorrhoids without mention of complication] Onset: 12-25-2020 12-25-2020 Episodic Mood disorders (20 sources) Bipolar disorder, most recent episode depression; Translations: [Mood disorders] Onset: 12-25-2020 12-25-2020 Nonspecific chest pain (20 sources) Chest discomfort; Translations: [Other chest pain] Onset: 01-19-2017 01-21-2017 Episodic Other bone disease and musculoskeletal deformities [...] Onset: 01-19-2022 Episodic Other connective tissue disease (20 sources) Bilateral cramp of muscle of lower limbs; Translations: [Cramp and spasm] Onset: 01-19-2017 01-21-2017 Episodic Other connective tissue disease (2 sources) Bursitis of right shoulder; Translations: [Bursitis of right shoulder] Onset: 01-19-2022 Episodic Other connective tissue disease (2 sources) Bursitis of left shoulder; Translations: [Bursitis of left shoulder] Onset: 01-19-2022 Episodic Other connective tissue disease (2 sources) Other specified soft tissue disorders; Translations: [Swelling of limb] Onset: 01-29-2025 Episodic Other connective tissue disease (2 sources) Pain in right foot; Translations: [Pain in right foot] Onset: 08-13-2024 Episodic Other connective tissue disease (2 sources) Pain in left foot; Translations: [Pain in left foot] Onset: 08-13-2024 Episodic Other gastrointestinal disorders (2 sources) Diarrhea; Translations: [Diarrhea, unspecified] Onset: 03-31-2024 03-31-2024 Episodic Other gastrointestinal disorders (1 source) Diarrhea, unspecified; Translations: [Diarrhea, unspecified] Onset: 03-31-2024 Episodic Other injuries and conditions due to external causes (20 sources) Superficial injury; Translations: [Unspecified multiple injuries, [...] Resolved: 07-05-2018 Episodic Other lower respiratory disease (20 sources) Rib pain; Translations: [Pleurodynia] Onset: 02-23-2023 02-23-2023 Episodic Other lower respiratory disease (3 sources) Pleurodynia; Translations: [Pleurodynia] Onset: 02-14-2023 Episodic Other non-traumatic joint disorders (20 sources) Hip pain; Translations: [Pain in left hip] Onset: 07-26-2022 Episodic Other non-traumatic joint disorders (4 sources) Arthralgia of the ankle and/or foot; Translations: [Pain in right ankle and joints of right foot] Onset: 01-15-2025 01-15-2025 Episodic Other non-traumatic joint disorders (2 sources) Pain in right ankle and joints of right foot; Translations: [Pain in right ankle and joints of right foot] Onset: 01-15-2025 Episodic Other nutritional; endocrine; and metabolic disorders (20 sources) Weight loss; Translations: [Loss of weight] Resolved: 12-16-2021 05-07-2021 Episodic Other nutritional; endocrine; and metabolic disorders (1 source) Body mass index (BMI) 29.0-29.9, adult; Translations: [Body mass index [BMI] 29.0-29.9, adult] Onset: 02-14-2023 Episodic Other nutritional; endocrine; and metabolic disorders (3 sources) Weight decreased; Translations: [Abnormal weight loss] Resolved: 12-16-2021 12-16-2021 Episodic Other skin disorders (20 sources) Loss of hair; Translations: [Alopecia, unspecified] Resolved: 04-27-2022 05-07-2021 Episodic Comment on above: saw [employer] rescribed minoxidil Summer 2017; Other skin disorders (20 sources) Disorder of skin of upper limb; Translations: [Disorder of the skin and subcutaneous tissue, unspecified] Onset: 05-29-2022 Resolved: 06-25-2022 Episodic Other upper respiratory disease (1 source) Other specified disorders of nose and nasal sinuses; Translations: [Other specified disorders of nose and nasal sinuses] Onset: 02-14-2023 Episodic Pneumonia (except that caused by tuberculosis or sexually transmitted disease) (20 sources) Pneumonia; Translations: [Pneumonia, unspecified organism] Onset: 01-19-2017 01-21-2017 Episodic Residual codes; unclassified (20 sources) Edema of lower extremity; Translations: [Edema] Onset: 09-06-2018 12-25-2020 Episodic Residual codes; unclassified (20 sources) Insomnia; Translations: [Insomnia, unspecified] Onset: 12-17-2015 12-25-2020 Episodic Residual codes; unclassified (8 sources) History of operative procedure on knee; Translations: [Status post knee replacement] Onset: 07-29-2009 12-25-2020 Episodic Residual codes; unclassified (20 sources) Intolerance to drug; Translations: [Other specified health status] Onset: 07-01-2021 08-07-2021 Episodic Residual codes; unclassified (20 sources) Memory impairment; Translations: [Other amnesia] Onset: 11-07-2021 Episodic Residual codes; unclassified (20 sources) History of arthroscopic procedure on shoulder; Translations: [Other specified postprocedural states] Onset: 01-26-2023 Episodic Residual codes; unclassified (20 sources) History of operative procedure on hip; Translations: [Other specified postprocedural states] Onset: 01-26-2023 Episodic Residual codes; unclassified (9 sources) Other specified postprocedural states; Translations: [Other postprocedural status] Onset: 05-16-2023 Episodic Residual codes; unclassified (14 sources) Postoperative state; Translations: [Other specified postprocedural states] Onset: 02-11-2010 Resolved: 01-16-2015 01-16-2015 Episodic Skin and subcutaneous tissue infections (20 sources) Cellulitis of toe; Translations: [Cellulitis of right toe] Onset: 08-07-2021 08-07-2021 Episodic Sprains and strains (20 sources) Strain of neck muscle; Translations: [Strain of muscle, fascia and tendon at neck level, initial encounter] Onset: 01-19-2017 01-21-2017 Episodic Superficial injury; contusion (5 sources) Contusion of chest; Translations: [Contusion of chest wall] Onset: 05-31-2022 02-14-2023 Episodic Unclassified (2 sources) Drug therapy finding; Translations: [Controlled substance agreement signed] Unclassified (2 sources) Prescribed medication regimen behavior finding; Translations: [Chronic prescription opiate use] Unclassified (2 sources) Cancer cervix screening status; Translations: [Cervical cancer screening] NEGATED: Highlighted row has not occurred!Residual codes; unclassified (20 sources) Disease Episodic Results Test Name Value Interpretation Reference Range Facility Breast imaging reportOrdered By: Colby Evans on 06-19-2025 Study report [facility] Imaging Services [address] [place] [address] SCRN MAMM (CAD)W/EMIR BILAT MR#: [id number] Acct: [id number] Name: GRICELDA NORMAN Rep #: [id number] : 1960 F 64 From: Antolin Evans MD PCP: Dr. Marietta Johnson DO Status: REG CLI Study:SCRN MAMM (CAD)W/EMIR BILAT Date of Exa m: 06/18/25 Exam# [id number] Ordering Dr: Niles Johnson DO EXAM: SCRN MAMM (CAD)W/EMIR BILAT DATE: 06/18/2025 CLINICAL HISTORY: F, Age 64 y/o , SCREENING No family history. TECHNIQUE: SCRN MAMM (CAD)W/EMIR BILAT COMPARISON: No prior examination available for comparison at this time. FINDINGS: TISSUE DENSITY: There are scattered areas of fibroglandular density. Bilateral Breast Mammographic Findings: There is a 6.7 mm well-defined nodule in the lateral retroareolar region of the left breast. Correlation with ultrasound is recommended. Fat containing bilateral axillary lymph nodes. BI/SCRN MAMM (CAD)W/EMIR BILAT IMPRESSION: 6.7 mm well-defined nodule in the lateral retroareolar region of the left breastas described. Correlation with ultrasound recommended. OVERALL FINAL ASSESSMENT BI-RADS 0: INCOMPLETE - NEED ADDITIONAL IMAGING EVALUATION. RECOMMENDATION: Ultrasound Recommended A letter with findings and recommendations will be mailed to the patient. Reading Location: [facility] CC: Dr. Marietta Johnson, ~ Soaker: Signed CNOVon 06-19-2025 CNOV Office Visit (PLASMN ) GRICELDA NORMAN ([id number]) 1960 F Date Time Provider Department 06/19/25 8:00 AM ABDELRAHMAN CONRAD During your visit today, we recorded the following information about you: Temperature Pulse Respiration Blood pressure 96.5 degrees 51/minute 16/minute 127/61 Weight Height 83.5 kg 1.6 m Abdelrahman Conrad MD 06/19/2025 8:52 AM Signed 64 year old female from [place], [place] referred by Dr. Zavala (vascular medicine) for evaluation of lymphedema affecting bilateral lower extremities, R > L. She has been following with vascular medicine who diagnosed her clinically with lymphedema in March 2025. Ordered pump, seen by Dr. Zavala [facility] vascular medicine She had swelling since a few months Seen by Susan Buck in cardiology patient has a h/o 11 DE with 11 cardiac caths. Per patient, last DE 6-7 years ago . Patient also s/p CABGx3 with reversed saphenous vein [place] [address] Braulio Araya. Patient reports grafts failed 1 week after surgery and she had to undergo a second operation. Lymphedema History History of lymphatic injury? No If so, what was the injury? N/a History of cancer? How was it treated? No Lymph node removal? If so, where and how many? No Did you have radiation? If so, where? No Onset of swelling: As above Trigger of swelling: As above Does swelling disappear in morning after elevation? Goes down by does not disappear Had infection in affected body part? denies If so, when was first episode, how many times a year? N/a Family history of lymphedema? denies Decreased ability in critical thinking, memory, mentation, brain fog? denies Lymphedema Diagnosis How was your lymphedema diagnosis made? Clinically Have you had technetium-99 lymphoscintigraphy? Finding? When? No Have you had ICG lymphography? Finding? When? No History Related to Venous System Ever been diagnosed with venous insufficiency? Denies By what test? N/a If so, how was it treated? N/a Ever been diagnosed with May Thurner syndrome? Treated? Denies Lymphedema Treatment Had lymphedema therapy? No, not covered by insurance When did you last see a therapist? N/a Therapist? N/a Currently wear compression garment? No, attempted in the past with minimal improvement Type of knit (circular vs flat) N/a What compression class? N/a Wear time? N/a Wear night garment? What type? No Using pneumatic compression Denies, ordered Had surgery for lymphedema? denies What surgery? By whom? N/a How has the surgery worked? N/a Lymphedema Functional Assessment 1) How has lymphedema affected your daily activity? Reports difficulty with walking, has pain and heaviness 2) How has lymphedema affected your work? 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 Has a hard time putting shoes on 3) Name one thing lymphedema has prevented you from doing and you want to do the most. Walking normally 4) How much has lymphedema impacted your life - little, somewhat, or significantly so. Somewhat 5) From 1 - 5 with 5 being the best and 1 being the worst, please rate your quality of life. 5 Past Medical History PAST MEDICAL HISTORY Diagnosis Date Acute myocardial infarction, unspecified site 08/27/2001 Myocardial Infarction Bipolar disorder, unspecified (HCC) Compression fracture of L3 vertebra (HCC) Coronary artery disease Coronary atherosclerosis due to lipid rich plaque Depressive disorder, not elsewhere classified Generalized osteoarthrosis, unspecified site Hypertension Leg swelling Osteoporosis, unspecified Past Surgical History PAST SURGICAL HISTORY Procedure Laterality Date CORONARY ARTERY BYP W/VEIN AND ARTERY GRAFT 4 VEIN PAST SURGICAL HISTORY OF menisectomy left knee PAST SURGICAL HISTORY OF arthroscopy both knees 3 times PAST SURGICAL HISTORY OF bunion right great toe repair PAST SURGICAL HISTORY OF Right hip PAST SURGICAL HISTORY OF Bilateral foot surgery STENT PLACEMENT 4 stents, unsucessful She takes amoxicillin 875 mg and will need to for the rest of her life d/t back surgery where she was septic, Dr. Valdez in [place] Height: 5 ft 3 in Weight: 184 lbs Body Mass Index: Body mass index is 32.59 kg/m?. Allergy to shellfish/iodine? Yes, anaphylaxis - reports requiring pre-medication prior to procedures involving iodine Consult placed for lymphedema therapy STAFF COMMENT I have seen and examined the patient, and I agree with the assessment and plan as described above. 64 yo female with cardiac history and lymphedema of R leg, seen by vascular, referred to us for evaluation for surgery. Not wearing compression garment and has not had lymphedema therapy due to insurance not covering. Exam demonstrated bilateral lower extremity with edema, tense 3+ in R lower leg and (more content not included)... Normal [facility] SCRN MAMM (CAD)W/EMIR BILATo n 06-18-2025 SCRN MAMM (CAD)W/EMIR BILAT [facility] Imaging Services [address] [place] [address] SCRN MAMM (CAD)W/EMIR BILAT MR#: [id number] Acct: [id number] Name: GRICELDA NORMAN Rep #: [id number] : 1960 F 64 From: Colby zavala MD PCP: Dr. Marietta Johnson, DO Status: [facility] Study: SCRN MAMM (CAD)W/EMIR BILAT Date of Exam: 04/07 Exam# [id number] Ordering Dr: Marietta Johnson EXAM: SCRN MAMM (CAD)W/EMIR BILAT DATE: 06/18/2025 CLINICAL HISTORY: F, Age 64 y/o , SCREENING No family history. TECHNIQUE: SCRN MAMM (CAD)W/EMIR BILAT COMPARISON: No prior examination available for comparison at this time. FINDINGS: TISSUE DENSITY: There are scattered areas of fibroglandular density. Bilateral Breast Mammographic Findings: There is a 6.7 mm well-defined nodule in the lateral retroareolar region of the left breast. Correlation with ultrasound is recommended. Fat containing bilateral axillary lymph nodes. BI/SCRN MAMM (CAD)W/EMIR BILAT IMPRESSION: 6.7 mm well-defined nodule in the lateral retroareolar region of the left breast as described. Correlation with ultrasound recommended. OVERALL FINAL ASSESSMENT BI-RADS 0: INCOMPLETE - NEED ADDITIONAL IMAGING EVALUATION. RECOMMENDATION: Ultrasound Recommended A letter with findings and recommendations will be mailed to the patient. Reading Location: [id number] CC: Dr. Marietta Johnson DO Soaker: Signed [facility] 05-22-2025 CNPN Telephone (PLASMN) GRICELDA NORMAN ([id number]) 1960 F Date Time Provider Department 05/22/25 NAKIA BULL During your visit today, we recorded the following information about you: Wendie Boykin, ALICIA 05/22/2025 2:02 PM Signed RN reached out to Gricelda Norman regarding request for lymphedema surgery consult. They are agreeable to answering triage questions at this time. Consultation requested by Dr. Crissy Zavala DO (Vascular Surgery) for an opinion regarding secondary lymphedema. My final recommendations will be communicated back to the requesting physician by way of shared Medical record or letter to requesting physician via US mail. General Health Questions: -DM? No Last A1C? 5.4 on 02/03/23 -History of kidney disease? No -History of congestive heart failure? Yes, prescribed bumex however and has been taking this since 2003 when she switched regimen from lasix -History of stroke or heart attack? Yes, patient has a h/o 11 DE with 11 cardiac caths. Per patient, last DE 6-7 years ago . Patient also s/p CABGx3 with reversed saphenous vein [place] [address] Braulio Araya. Patient reports grafts failed 1 week after surgery and she had to undergo a second operation. -Have you ever been diagnosed or treated for blood clots in the legs or lungs? No -Any history of organ transplant? No -Are you currently taking any immunosuppressant medications? No -Do you have a cancer diagnosis? No -Other relevant medication comorbidities our team should be aware of? - sister w/ h/o stroke - multiple surgeries requiring hardware (knee, back, shoulder, foot) PAST MEDICAL HISTORY Diagnosis Date Acute myocardial infarction, unspecified site 08/27/2001 Myocardial Infarction Bipolar disorder, unspecified (HCC) Compression fracture of L3 vertebra (HCC) Coronary artery disease Coronary atherosclerosis due to lipid rich plaque Depressive disorder, not elsewhere classified Generalized osteoarthrosis, unspecified site Hypertension Leg swelling Osteoporosis, unspecified -Height? 5'2 -Weight? 184 lb -BMI? 33.7 -Allergies to shellfish or iodine? Yes - anaphylactic - pt reports having to take medication prior to procedures with iodine -Current smoker? No Lymphedema Diagnosis: -Where is your swelling located? BLE, R > L -How long have you had a diagnosis of lymphedema? March 2025 -Who diagnosed you with lymphedema? Dr. Zavala -How were you diagnosed with lymphedema? Clinical presentation -Have you been evaluated by a Vascular Medicine Team? Yes, patient has been following with Dr. Zavala -Have you ever been diagnosed with venous insufficiency? Yes -Have you had imaging that looked at your lymphatic system? No US VENOUS INCOMPETENCY UNL VAS LAB (04/11/2025 2:26 PM) IMPRESSION RIGHT SIDE - DEEP VEINS Negative for acute deep vein thrombosis in vessels visualized. Positive for valvular incompetency in the common femoral vein. Negative for valvular incompetency in the femoral vein and popliteal vein. Multiple enlarged lymph nodes noted in the groin. The largest measures 1.8 x 1.1 x 1.2 cm. RIGHT SIDE - SUPERFICIAL VEINS Previous stripping of the great saphenous vein. Harvested for bypass from proximal thigh to proximal calf. Reflux noted in the great saphenous vein from proximal to mid calf. Positive for valvular incompetency in the anterior accessory great saphenous vein. Straight segment noted from junction to mid thigh measuring 24.2 cm. Positive for valvular incompetency in the small saphenous vein. LEFT SIDE - DEEP VEINS Spontaneous and respirophasic flow noted in the common femoral vein. PVR ANK/COLLINS/TOE ANIL VAS LAB (04/11/2025 2:55 PM) IMPRESSION RIGHT SIDE Resting right ankle brachial index: 1.24 Normal ankle brachial index at rest in the right leg. Right ankle: Normal at rest. LEFT SIDE Resting left ankle brachial index: 1.24 Normal ankle brachial index at rest in the left leg. Left ankle: Normal at rest. Lymphedema Management: -Have you ever attempted Lymphedema therapy? No d/t insurance issues -Do you wear compression garments or use a pneumatic compression pump? Unable to tolerate compression BMI RESTRICTIONS: ML: I reviewed Dr. Bull's role as a lymphedema surgeon, and discussed that he does not offer conservative management of lymphedema. With surgery, he has requirements in place including BMI of 32 or less prior to surgical intervention. Dr. Bull advises that patients reduce their weight where the height/weight is calculated to be a BMI of 32 or less. His surgeries for lymphedema are limited to BMI of 32 or below due to increased risks of post-operative complications including seroma, hematomas, infection, wound dehiscence and wound necrosis associated with elevated BMIs. It is recommended that pa (more content not included)... Normal [facility] CNPN Telephone (SHISMD) GRICELDA NORMAN ([id number]) 1960 F Date Time Provider Department 05/22/25 CRISSY ZAVALA During your visit today, we recorded the following information about you: Bladimir Mina RN 05/22/2025 3:17 PM Signed Orders for compression stockings and lymphedema pumps completed Once signed will faxed [phone] Bladimir Mina RN 05/28/2025 2:58 PM Signed Orders faxed to [facility] at [phone] Transmission completed Bladimir Mina RN 05/29/2025 2:46 PM Signed Spoke with patient and explained how to measure. She is comfortable and will do today and send measurements via [employer] Bladimir Mina RN 06/19/2025 9:48 AM Addendum Call received from compression rep with update. She reports patient called her after her appt with lymphedema surgery and was advised to postpone getting wraps and pumps. Per rep she was advised to see lymphedema therapy instead. The concern is that the patients insurance will not cover the lymphedema therapy. And will she need the devices skilled nursing. Attempted to contact the patient to discuss. LesCira drew 06/19/2025 10:55 AM Signed Pt called office re the compression socks, they received a VM about. She stated she doesn't want the compression socks or pump do to insurance not covering. She also stated she does not want to receive anymore calls regarding them. Bladimir Mina RN 06/19/2025 12:56 PM Signed Message sent to [employer] rep with this information Will discuss with Dr. Zavala when she returns to the office. Allergies As of Date: 05/22/2025 Noted Allergy Reaction ADHESIVE 07/15/2017 2 - Rash 9 - Itching Comments: Plastic bandaids IV DYE (IODINE) 10/14/2003 10 - Anaphylaxis NEOSPORIN ([id number] O*02/28/2009 2 - Rash 9 - Itching PENICILLINS 02/26/2002 14 - Other: See Comments Comments: convulsions Date Reviewed: 05/14/2025 Reviewed by: Swathi Anderson OCCA - Fully Assessed Reason for Visit: Orders [681] Cmt: Compression wraps and pump orders Prescriptions as of 06/19/2025 - amoxicillin (AMOXIL) 875 mg tablet 1 tablet Oral Twice a day for 90 days - clobetasol (TEMOVATE) 0.05 % cream 1 Application. - pramipexole (MIRAPEX) 1.5 mg tablet Take 1.5 mg by mouth daily at bedtime. - traZODone (DESYREL) 100 mg tablet Take 100 mg by mouth daily at bedtime. 2 tabs at bedtime - vit B complex no.12/niacin,B3, (VITAMIN B COMPLEX NO.12-NIACIN ORAL) Take by mouth once daily. - multivitamin with minerals (HAIR,SKIN AND NAILS ORAL) Take by mouth once daily. - bumetanide (BUMEX) 2 mg tablet Take 2 mg by mouth once daily. - lisinopril 2.5 mg tablet Takes one-half tablet by mouth daily - lamoTRIgine (LAMICTAL) 200 mg tablet Take 200 mg by mouth once daily. - oxyCODONE-acetaminophe n (PERCOCET) 5-325 mg tablet Take 1 tablet by mouth every 4 hours as needed for Pain. - isosorbide mononitrate ER (IMDUR) 30 mg 24 hr tablet Take 1 tablet by mouth once daily. take one tablet daily - atorvastatin 80 mg tablet Take 80 mg by mouth once daily. - pantoprazole 40 mg tablet Take 40 mg by mouth once daily. - Aspirin 81 mg tab Take 81 mg by mouth once daily. 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] 10/02/2009 Post-operative state [Z98.890] 02/11/2010 01/16/2015 Hyperlipidemia [E78.5] 01/16/2015 Hypertension [I10] 01/16/2015 S/P CABG x 3 [Z95.1] 10/05/2015 Atherosclerosis of autologous artery coronary a*10/05/2015 Pneumonia [J18.9] 01/19/2017 Cramp of both lower extremities [R25.2] 01/19/2017 Chest pressure [R07.89] 01/19/2017 Strain of neck muscle [S16.1XXA] 01/19/2017 Old DE (myocardial infarction) [I25.2] Leg swelling [M79.89] 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 No acute fracture or dislocation of note. Persistent visualization of significant arthritis noted through the midfoot and rear foot. Subtle subluxation of the ankle joint distally. Subchondral sclerosis noted through the midtarsal joints and TN joint. Ankle joint is overall fairly concentric mild subchondral sclerosis but largely maintenance of joint height mild narrowing laterally greater than medially. Evidence of substantial edema noted of the right lower extremity greater than left. Dictated by: CLYDE TENA on TueMay 22, 2025 11:50:05 AM EDT Transcribed by: CLYDE TENA on TueMay 22, 2025 11:50:05 AM EDT Finalized by: CLYDE TENA on TueMay 22, 2025 11:50:05 AM EDT Formerly [facility] Comment on above: Order Comment: Injur y/Trauma or Illness?:Illness/Other How long have you had these symptoms (acute/chronic)?:Acute Reason for exam?:left lateral aspect ankle pain, swelling of lle History of cancer?:Unknown Surgeries, chemotherapy, or radiation?:bunionectomy, bilat feet Type of Exam?:Initial Additional signs and symptoms?:n XR ORTHO ANKLE RIGHT 3 VIEWS on 05-21-2025 XR ORTHO ANKLE RIGHT 3 VIEWS 3 views of the bilateral ankles reviewed today AP ankle mortise and lateral.. No acute fracture or dislocation of note. Persistent visualization of significant arthritis noted through the midfoot and rear foot. Subtle subluxation of the ankle joint distally. Subchondral sclerosis noted through the midtarsal joints and TN joint. Ankle joint is overall fairly concentric mild subchondral sclerosis but largely maintenance of joint height mild narrowing laterally greater than medially. Evidence of substantial edema noted of the right lower extremity greater than left. Dictated by: CLYDE TENA on TueMay 22, 2025 11:50:11 AM EDT Transcribed by: CLYDE TENA on TueMay 22, 2025 11:50:11 AM EDT Finalized by: CLYDE TENA on TueMay 22, 2025 11:50:11 AM EDT [facility] Comment on above: Order Comment: Injur y/Trauma or Illness?:Illness/Other How long have you had these symptoms (acute/chronic)?:Acute Reason for exam?:lymphedema of right lower leg. pain to right ankle History of cancer?:Unknown Surgeries, chemotherapy, or radiation?:bunionectomy, bilat feet Type of Exam?:Initial Additional signs and symptoms?:n Iris 05-15-2025 CNPN Telephone (PLASMN) GRICELDA NORMAN ([id number]) 1960 F Date Time Provider Department 05/15/25 NAKIA BULL During your visit today, we recorded the following information about you: Wendie Boykin RN 05/15/2025 12:04 PM Signed Reached out to Gricelda Norman regarding request for lymphedema surgery consult. No answer, left VM informing patient of triage questions asked prior to scheduling a surgical consult. Asked that they reach back out when they have a moment to answer questions. Call back number provided. Attempt #1: Lymphedema pool to continue to monitor. Wendie Boykin RN May 15, 2025 12:04 PM Marion Pugh 05/20/2025 8:47 AM Signed Patient returning call, please call her back Afternoons are best after 230pm Allergies As of Date: 05/15/2025 Noted Allergy Reaction ADHESIVE 07/15/2017 2 - Rash 9 - Itching Comments: Plastic bandaids IV DYE (IODINE) 10/14/2003 10 - Anaphylaxis NEOSPORIN ([id number] O*02/28/2009 2 - Rash 9 - Itching PENICILLINS 02/26/2002 14 - Other: See Comments Comments: convulsions Date Reviewed: 05/14/2025 Reviewed by: Swathi Anderson OCCA - Fully Assessed Reason for Visit: Nurse Triage Call [185] Cmt: Lymphedema triage attempt #1 Prescriptions as of 05/20/2025 - amoxicillin (AMOXIL) 875 mg tablet 1 tablet Oral Twice a day for 90 days - clobetasol (TEMOVATE) 0.05 % cream 1 Application. - pramipexole (MIRAPEX) 1.5 mg tablet Take 1.5 mg by mouth daily at bedtime. - traZODone (DESYREL) 100 mg tablet Take 100 mg by mouth daily at bedtime. 2 tabs at bedtime - vit B complex no.12/niacin,B3, (VITAMIN B COMPLEX NO.12-NIACIN ORAL) Take by mouth once daily. - multivitamin with minerals (HAIR,SKIN AND NAILS ORAL) Take by mouth once daily. - bumetanide (BUMEX) 2 mg tablet Take 2 mg by mouth once daily. - lisinopril 2.5 mg tablet Takes one-half tablet by mouth daily - lamoTRIgine (LAMICTAL) 200 mg tablet Take 200 mg by mouth once daily. - oxyCODONE-acetaminophe n (PERCOCET) 5-325 mg tablet Take 1 tablet by mouth every 4 hours as needed for Pain. - isosorbide mononitrate ER (IMDUR) 30 mg 24 hr tablet Take 1 tablet by mouth once daily. take one tablet daily - atorvastatin 80 mg tablet Take 80 mg by mouth once daily. - pantoprazole 40 mg tablet Take 40 mg by mouth once daily. - Aspirin 81 mg tab Take 81 mg by mouth once daily. Problem List As Of Date 05/15/2025 Noted Resolved Coronary artery disease involving [place]*08/27/2004 LOC SECONDRY OSTEOARTHR-L/LEG [M17.5] 02/25/2009 SUPERFICIAL INJURY NEC [T07.XXXA] 02/28/2009 CHRONIC SKIN ULCER NOS [L98.499] 02/28/2009 Knee Joint Replacement 07/29/2009 Hallux Rigidus, Acquired [M20.20] 10/02/2009 Post-operative state [Z98.890] 02/11/2010 01/16/2015 Hyperlipidemia [E78.5] 01/16/2015 Hypertension [I10] 01/16/2015 S/P CABG x 3 [Z95.1] 10/05/2015 Atherosclerosis of autologous artery coronary a*10/05/2015 Pneumonia [J18.9] 01/19/2017 Cramp of both lower extremities [R25.2] 01/19/2017 Chest pressure [R07.89] 01/19/2017 Strain of neck muscle [S16.1XXA] 01/19/2017 Old DE (myocardial infarction) [I25.2] Leg swelling [M79.89] 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] 07/01/2021 S/P angioplasty with stent [Z95.820] 07/01/2021 Chronic heart failure with preserved ejection f*12/25/2021 Sinus bradycardia [R00.1] 08/12/2022 Preoperative cardiovascular examination [Z01.81*04/26/2023 Obesity, Class II, BMI 35-39.9 [E66.812] 01/20/2024 Encounter Status:Closed by WENDIE BOYKIN on 05/15/25 Normal [facility] CNOVon 05-14-2025 CNOV Office Visit (VASSWS ) DALLASGRICELDA ([id number]) 1960 F Date Time Provider Department 05/14/25 9:15 AM CRISSY ZAVALA During your visit today, we recorded the following information about you: Pulse Blood pressure 57/minute 116/71 Crissy Zavala DO 05/14/2025 9:26 AM [facility] [place] DEPARTMENT OF VASCULAR SURGERY OUTPATIENT VISIT DATE May 14, 2025 OUTPATIENT VISIT TYPE ESTABLISHED SERVICE DATE: 05/14/2025 SERVICE TIME: 8:57 AM PRIMARY CARE PHYSICIAN: Marietta Johnson DO HISTORY OF PRESENT ILLNESS: Ms. Norman is a 64 year old female who presents today for a vascular surgery follow-up visit on secondary lymphedema. She continues to have significant edema despite non-interventional therapy including compression, elevation, and exercise. Right hightower wound is slowly healing. Denies drainage. She does admit to some tenderness especially to palpation. Has noticed that her swelling is slightly worse and she notices some discoloration at right ankle. PAST MEDICAL HISTORY Diagnosis Date Acute myocardial [...] foot surgery STENT PLACEMENT 4 stents, unsucessful SOCIAL HISTORY Social History Tobacco Use Smoking status: Former Current packs/day: 0.00 Average packs/day: 1 pack/day for 20.0 years (20.0 ttl pk-yrs) Types: Cigarettes Start date: 08/27/1981 Quit date: 08/27/2001 Years since quittin.7 Smokeless tobacco: Never Tobacco comments: d/c 08/27/01 Vaping Use Vaping status: Never Used Substance Use Topics Alcohol use: Yes Comment: [facility] [place] Drug use: No MEDICATIONS: amoxicillin (AMOXIL) 875 mg tablet 1 tablet Oral Twice a day for 90 days clobetasol (TEMOVATE) 0.05 % cream 1 Application. pramipexole (MIRAPEX) 1.5 mg tablet Take 1.5 mg by mouth daily at bedtime. traZODone (DESYREL) 100 mg tablet Take 100 mg by mouth daily at bedtime. 2 tabs at bedtime vit B complex no.12/niacin,B3, (VITAMIN B COMPLEX NO.12-NIACIN ORAL) Take by mouth once daily. multivitamin with minerals (HAIR,SKIN AND NAILS ORAL) Take by mouth once daily. bumetanide (BUMEX) 2 mg tablet Take 2 mg by mouth once daily. lisinopril 2.5 mg tablet Takes one-half tablet by mouth daily lamoTRIgine (LAMICTAL) 200 mg tablet Take 200 mg by mouth once daily. oxyCODONE-acetaminophe n (PERCOCET) 5-325 mg tablet Take 1 tablet [...] Take 81 mg by mouth once daily. ALLERGIES: ALLERGIES Allergen Reactions Adhesive Rash, Itching Plastic bandaids Iv Dye [Iodine] Anaphylaxis Neosporin [Neomycin* Rash, Itching Penicillins Other: See Comments convulsions PHYSICAL EXAM: BP 116/71 (BP Site: Left Arm, BP Position: Sitting, BP Cuff Size: Regular Adult) Pulse (!) 57 SpO2 98% General: Alert and oriented Extremities: Edema - right leg pitting edema, small ulceration on proximal hightower, mild hyperpigmentation Neurological: Normal cognition and motor skills. Vascular: Dorsalis Pedal Right: Normal - Left: Normal Diagnostic tests reviewed for today's visit: Most recent labs Most recent imaging PVRs- normal Venous reflux- RIGHT SIDE - DEEP VEINS Negative for acute deep vein thrombosis in vessels visualized. Positive for valvular incompetency in the common femoral vein. Negative for valvular incompetency in the femoral vein and popliteal vein. Multiple enlarged lymph nodes noted in the groin. The largest measures 1.8 x 1.1 x 1.2 cm. RIGHT SIDE - SUPERFICIAL VEINS Previous stripping of the great saphenous vein. Harvested for bypass from proximal thigh to proximal calf. Reflux noted in the great saphenous vein from proximal to mid calf. Positive for valvular incompetency in the anterior accessory great saphenous vein. Straight segment noted from junction to mid thigh measuring 24.2 cm. Positive for valvular incompetency in the small saphenous vein. LEFT SIDE - DE (more content not included)... [facility] (PODCCP) GRICELDA NORMAN ([id number]) 1960 F Date Time Provider Department 05/07/25 MARIETTA JOHNSON PODCCP During your visit today, we recorded the following information about you: Blake Jenkins 05/07/2025 1:00 PM Signed Reason for call: PT called and she would like to schedule an appointment with vascular surgery. Home and cell number:[phone] Diagnosis:Lymphedema Kind Blake Crisostomo. Leanne Avilez 05/09/2025 12:06 PM Signed Vascular Medicine Allergies As of Date: 05/07/2025 Noted Allergy Reaction ADHESIVE 07/15/2017 2 - Rash 9 - Itching Comments: Plastic bandaids IV DYE (IODINE) 10/14/2003 10 - Anaphylaxis NEOSPORIN ([id number] O*02/28/2009 2 - Rash 9 - Itching PENICILLINS 02/26/2002 14 - Other: See Comments Comments: convulsions Date Reviewed: 04/16/2025 Reviewed by: Trice Pascaul MA - Fully Assessed Reason for Visit: Appointment [186] Prescriptions as of 05/09/2025 - amoxicillin (AMOXIL) 875 mg tablet 1 tablet Oral Twice a day for 90 days - clobetasol (TEMOVATE) 0.05 % cream 1 Application. - pramipexole (MIRAPEX) 1.5 mg tablet Take 1.5 mg by mouth daily at bedtime. - traZODone (DESYREL) 100 mg tablet Take 100 mg by mouth daily at bedtime. 2 tabs at bedtime - vit B complex no.12/niacin,B3, (VITAMIN B COMPLEX NO.12-NIACIN ORAL) Take by mouth once daily. - multivitamin with minerals (HAIR,SKIN AND NAILS ORAL) Take by mouth once daily. - bumetanide (BUMEX) 2 mg tablet Take 2 mg by mouth once daily. - lisinopril 2.5 mg tablet Takes one-half tablet by mouth daily - lamoTRIgine (LAMICTAL) 200 mg tablet Take 200 mg by mouth once daily. - oxyCODONE-acetaminophe n (PERCOCET) 5-325 mg tablet Take 1 tablet by mouth every 4 hours as needed for Pain. - isosorbide mononitrate ER (IMDUR) 30 mg 24 hr tablet Take 1 tablet by mouth once daily. take one tablet daily - atorvastatin 80 mg tablet Take 80 mg by mouth once daily. - pantoprazole 40 mg tablet Take 40 mg by mouth once daily. - Aspirin 81 mg tab Take 81 mg by mouth once daily. Problem List As Of Date 05/07/2025 Noted Resolved Coronary artery disease involving [place] altamirano*08/27/2004 LOC SECONDRY OSTEOARTHR-L/LEG [M17.5] 02/25/2009 SUPERFICIAL INJURY NEC [T07.XXXA] 02/28/2009 CHRONIC SKIN ULCER NOS [L98.499] 02/28/2009 Knee Joint Replacement 07/29/2009 Hallux Rigidus, Acquired [M20.20] 10/02/2009 Post-operative state [Z98.890] 02/11/2010 01/16/2015 Hyperlipidemia [E78.5] 01/16/2015 Hypertension [I10] 01/16/2015 S/P CABG x 3 [Z95.1] 10/05/2015 Atherosclerosis of autologous artery coronary a*10/05/2015 Pneumonia [J18.9] 01/19/2017 Cramp of both lower extremities [R25.2] 01/19/2017 Chest pressure [R07.89] 01/19/2017 Strain of neck muscle [S16.1XXA] 01/19/2017 Old DE (myocardial infarction) [I25.2] Leg swelling [M79.89] 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] 07/01/2021 S/P angioplasty with stent [Z95.820] 07/01/2021 Chronic heart failure with preserved ejection f*12/25/2021 Sinus bradycardia [R00.1] 08/12/2022 Preoperative cardiovascular examination [Z01.81*04/26/2023 Obesity, Class II, BMI 35-39.9 [E66.812] 01/20/2024 Encounter Status:Closed by BLAKE JENKINS on 05/07/25 [facility] CNOVon 04-16-2025 CNOV Office Visit (VASSWS ) GRICELDA NORMAN ([id number]) 1960 F Date Time Provider Department 04/16/25 3:30 PM CRISSY ZAVALASWS During your visit today, we recorded the following information about you: Pulse Blood pressure 57/minute 136/82 Trice Pascual MA 05/14/2025 8:58 AM Signed Patient presents with: Follow Up: Testing results - PVR and US done on 04/11/25 AMB ROOMING INTAKE FLOWSHEET DATA Pain Pain Level: 8 Pain Location: Leg-Right Description: Throbbing, Aching Duration Amount of Time: 2 Duration Units: Months Frequency: Continuous Intervention/Comfort measure: Medication Patient states is taking Tylenol for the pain and helps. Crissy Zavala DO 05/14/2025 8:58 AM Signed [facility] DEPARTMENT OF VASCULAR SURGERY OUTPATIENT VISIT DATE April 16, 2025 OUTPATIENT VISIT TYPE ESTABLISHED SERVICE DATE: 04/16/2025 SERVICE TIME: 3:28 PM PRIMARY CARE PHYSICIAN: Marietta Johnson DO HISTORY OF PRESENT ILLNESS: Ms. Norman is a 64 year old female who presents today for a vascular surgery follow-up visit after reflux testing. She continues to have swelling bilaterally- worse on right. She was unable to tolerate compression for any period of time PAST MEDICAL HISTORY Diagnosis Date Acute myocardial [...] foot surgery STENT PLACEMENT 4 stents, unsucessful SOCIAL HISTORY Social History Tobacco Use Smoking status: Former Current packs/day: 0.00 Average packs/day: 1 pack/day for 20.0 years (20.0 ttl pk-yrs) Types: Cigarettes Start date: 08/27/1981 Quit date: 08/27/2001 Years since quittin.6 Smokeless tobacco: Never Tobacco comments: d/c 08/27/01 Vaping Use Vaping status: Never Used Substance Use Topics Alcohol use: Yes Comment: occ wine Drug use: No MEDICATIONS: amoxicillin (AMOXIL) 875 mg tablet 1 tablet Oral Twice a day for 90 days clobetasol (TEMOVATE) 0.05 % cream 1 Application. meloxicam (MOBIC) 15 mg tablet Take 15 mg by mouth once daily. pramipexole (MIRAPEX) 1.5 mg tablet Take 1.5 mg by mouth daily at bedtime. traZODone (DESYREL) 100 mg tablet Take 100 mg by mouth daily at bedtime. 2 tabs at bedtime vit B complex no.12/niacin,B3, (VITAMIN B COMPLEX NO.12-NIACIN ORAL) Take by mouth once daily. multivitamin with minerals (HAIR,SKIN AND NAILS ORAL) Take by mouth once daily. bumetanide (BUMEX) 2 mg tablet Take 2 mg by mouth once daily. lisinopril 2.5 mg tablet Takes one-half tablet by mouth daily lamoTRIgine (LAMICTAL) 200 mg tablet Take 200 mg by mouth once daily. oxyCODONE-acetaminophe n (PERCOCET) 5-325 mg tablet Take 1 tablet [...] Take 81 mg by mouth once daily. ALLERGIES: ALLERGIES Allergen Reactions Adhesive Rash, Itching Plastic bandaids Iv Dye [Iodine] Anaphylaxis Neosporin [Neomycin* Rash, Itching Penicillins Other: See Comments convulsions PHYSICAL EXAM: BP 136/82 (BP Cuff Size: Regular Adult) Pulse (!) 57 SpO2 96% General: Alert and oriented Extremities: Edema bilaterally- right greater than left- See Get Images for photo Right leg wounds- superficial [id number], 1cmx0.5cm Left leg anterior hightower- superficial 4cmx0.5cm Leg measurements (cm) Right ankle 30, calf 44, thigh 55 Left ankle 26, calf 39, thigh 52 Length 76 Neurological: Normal cognition and motor skills. Vascular: Dorsalis Pedal Right: Weak - Left: Weak Diagnostic tests reviewed for today's visit: Most recent labs Most recent imaging PVRs- normal Venous Reflux RIGHT SIDE - DEEP VEINS Negative for acute deep vein thrombosis in vessels visualized. Positive for valvular incompetency in the common femoral vein. Negative for valvular incompetency in the femoral vein and popliteal vein. Multiple enlarged lymph nodes noted in the groin. The largest measures 1.8 x 1.1 x 1.2 cm. RIGHT SIDE - SUPERFICIAL VEINS Previous stri (more content not included)... Normal [facility] PVR ANK/COLLINS/TOE ANIL VAS LAB on 04-11-2025 PVR ANK/COLLINS/TOE ANIL VAS LAB Non-Invasive Vascular Laboratory [facility] Lower Extremity Arterial Physiology Study Bilateral/Complete Date of service/time: 04/11/2025 2:55:38 PM Name: MS. GRICELDA NORMAN Date of : 1960 Age: 64 years Gender: F Clinical Indication Decreased pulses. TECHNIQUE -------- An arterial physiological examination was performed, including measurement of blood pressures using continuous wave Doppler and recording of plethysmographic with or without Doppler waveforms at the below-mentioned limb segments. FINDINGS -------- RIGHT SIDE AT REST Right Pressures Brachial: 132 mmHg Ankle dorsalis pedis: 161 mmHg RYAN: 1.19 Ankle posterior tibial: 168 mmHg RYAN: 1.24 Right PVR Waveforms Ankle: Normal. Transmetatarsal: Normal. Digit: Normal. LEFT SIDE AT REST Left Pressures Brachial: 135 mmHg Ankle dorsalis pedis: 166 mmHg RYAN: 1.23 Ankle posterior tibial: 167 mmHg RYAN: 1.24 Left PVR Waveforms Ankle: Normal. Transmetatarsal: Normal. Digit: Normal. IMPRESSION RIGHT SIDE Resting right ankle brachial index: 1.24 Normal ankle brachial index at rest in the right leg. Right ankle: Normal at rest. LEFT SIDE Resting left ankle brachial index: 1.24 Normal ankle brachial index at rest in the left leg. Left ankle: Normal at rest. Technologist: Romario Guerra RVT, [facility] Ordering physician: CRISSY ZAVALA Interpreting physician: VIKTORIYA Rodriguez DO Final CC [employer] Medical Image : [id number] csSISUID See Link below for Image Normal [facility] VENOUS INCOMPETENCY UNL V LABon 04-11-2025 VENOUS INCOMPETENCY UNL VAS LAB Non-Invasive Vascular Laboratory [facility] Venous Valvular Incompetency Unilateral - Right Date of service/time: 04/11/2025 2:26:12 PM Name: MS. GRICELAD NORMAN Date of : 1960 Age: 64 years Gender: F Clinical Indication Lower extremity swelling. TECHNIQUE -------- A venous duplex ultrasound examination was performed, including grayscale imaging with compression maneuvers and color Doppler and spectral Doppler examination with augmentation maneuvers and response to respiration of the below mentioned veins. FINDINGS -------- Patient position reverse Trendelenburg 45 degrees. RIGHT SIDE Method of augmentation: manual. Common femoral vein Doppler: abnormal flow with reflux. Compression: normal. Femoral vein Doppler: normal flow. Compression: normal. Popliteal vein Doppler: normal flow. Compression: normal. Great saphenous vein Doppler: abnormal flow with reflux. Compression: normal. Small saphenous vein Doppler: abnormal flow with reflux. Compression: normal. RIGHT GREAT SAPHENOUS VEIN Proximal calf Augmentation reflux greater than or equal to 0.5 second. Size 0.44 cm. Mid calf Augmentation reflux greater than or equal to 0.5 second. Size 0.41 cm. Distal calf Augmentation reflux none. Size 0.35 cm. RIGHT SMALL SAPHENOUS VEIN Saphenopopliteal junction Augmentation reflux none. Size 0.43 cm. Proximal calf Augmentation reflux greater than or equal to 0.5 second. Size 0.34 cm. Mid calf Augmentation reflux greater than or equal to 0.5 second. Size 0.39 cm. Distal calf Augmentation reflux none. Size 0.26 cm. RIGHT ANTERIOR ACCESSORY GREAT SAPHENOUS VEIN Saphenous junction Valsalva reflux greater than or equal to 0.5 second. Size 0.55 cm. Proximal Thigh Valsalva reflux greater than or equal to 0.5 second. Size 0.57 cm. Mid Thigh Augmentation reflux greater than or equal to 0.5 second. Valsalva reflux none. Size 0.56 cm. RIGHT [employer] vein proximal calf Augmentation reflux none. Varicosity mid thigh to proximal calf Augmentation reflux greater than or equal to 0.5 second. Size 0.53 cm. Communicates with the anterior accessory great saphenous vein at mid thigh and great saphenous vein at proximal calf. LEFT SIDE Common femoral vein Doppler: normal flow. IMPRESSION RIGHT SIDE - DEEP VEINS Negative for acute deep vein thrombosis in vessels visualized. Positive for valvular incompetency in the common femoral vein. Negative for valvular incompetency in the femoral vein and popliteal vein. Multiple enlarged lymph nodes noted in the groin. The largest measures 1.8 x 1.1 x 1.2 cm. RIGHT SIDE - SUPERFICIAL VEINS Previous stripping of the great saphenous vein. Harvested for bypass from proximal thigh to proximal calf. Reflux noted in the great saphenous vein from proximal to mid calf. Positive for valvular incompetency in the anterior accessory great saphenous vein. Straight segment noted from junction to mid thigh measuring 24.2 cm. Positive for valvular incompetency in the small saphenous vein. LEFT SIDE - DEEP VEINS Spontaneous and respirophasic flow noted in the common femoral vein. Technologist: Romario Guerra RVT, [facility] Ordering physician: CRISSY ZAVALA Interpreting physician: VIKTORIYA Rodriguez DO Final CC [employer] Medical Image : [id number] csSISUID See Link below for Image Normal [facility] CNOVon 03-19-2025 CNOV Office Visit (VASSWS ) GRICELDA NORMAN ([id number]) 1960 F Date Time Provider Department 03/19/25 8:00 AM CRISSY ZAVALA During your visit today, we recorded the following information about you: Pulse Blood pressure 57/minute 131/82 Crissy Zavala DO 03/19/2025 9:10 AM Signed [facility] DEPARTMENT OF VASCULAR SURGERY OUTPATIENT VISIT DATE March 19, 2025 OUTPATIENT VISIT TYPE CONSULTATION SERVICE DATE: 03/19/2025 SERVICE TIME: 7:59 AM PRIMARY CARE PHYSICIAN: Marietta Johnson DO REFERRING PROVIDER: Susan Buck [address] [facility] [id number] Consult requested for an opinion regarding the evaluation and treatment of the above. My final impression and recommendations will be communicated back to the requesting physician by way of the shared medical record or letter via US mail. CHIEF COMPLAINT: Patient presents with: New Patient History of Present Illness: Patient is a 64 year old White female presenting for consultation, evaluation and possible treatment of leg edema and peripheral arterial disease. She has extensive cardiac procedures and stenting. She reports right leg swelling. She noted that compression creates bulges in her legs and she is unable to tolerate them. She is a former smoker. Denies history of DVT. She reports a tingling burning sensation in her legs. She admits to restless legs. Venous Duplex of right leg in 02/2025- negative for DVT. They harvested right vein for bypass. States swelling started in right leg only recently. PAIN ASSESSMENT: PAIN EVALUATION 03/18/2025 1806 Pain Level: 7 Pain Location: Leg-Right Description: Aching;Bloating;Crampi ng;Pressure;Sharp;Thro bbing;Tightness Duration Units: Days Frequency: Continuous Obstetric History T1 L1 SAB0 IAB0 Ectopic0 Multiple0 Live Births0 Comment: menarche at age 17y; afb 18y; lmp currently on depo provera Name of Baby 1: Not recorded Date: Not recorded GA: Not recorded Type: Not recorded Apgar1: Not recorded Apgar5: Not recorded Living: Not recorded Duration of Symptoms: Progressive PAST MEDICAL HISTORY Diagnosis Date Acute myocardial [...] HISTORY OF bunion right great toe repair 1979' PAST SURGICAL HISTORY OF Right hip PAST SURGICAL HISTORY OF Bilateral foot surgery STENT PLACEMENT 4 stents, unsucessful SOCIAL HISTORY: Social History Tobacco Use Smoking status: Former Current packs/day: 0.00 Average packs/day: 1 pack/day for 20.0 years (20.0 ttl pk-yrs) Types: Cigarettes Start date: 08/27/1981 Quit date: 08/27/2001 Years since quittin.5 Smokeless tobacco: Never Tobacco comments: d/c 08/27/01 Vaping Use Vaping status: Never Used Substance Use Topics Alcohol use: Yes Comment: occ wine Drug use: No FAMILY HISTORY Problem Relation Age of Onset Hypertension Mother Heart Mother Heart Attack Mother S/p PCI/CABG Hyperlipidemia Mother Heart Failure Mother Hypertension Father Heart Father PPM Stroke Sister Heart Attack Brother Heart Attack Maternal Grandmother Diabetes Paternal Grandmother None Other no family h/o breast cancer Heart Maternal Uncle CABG MEDICATIONS: amoxicillin (AMOXIL) 875 mg tablet 1 tablet Oral Twice a day for 90 days clobetasol (TEMOVATE) 0.05 % cream 1 Application. meloxicam (MOBIC) 15 mg tablet Take 15 mg by mouth once daily. pramipexole (MIRAPEX) 1.5 mg tablet Take 1.5 mg by mouth daily at bedtime. traZODone (DESYREL) 100 mg tablet Take 100 mg by mouth daily at bedtime. 2 tabs at bedtime vit B complex no.12/niacin,B3, (VITAMIN B COMPLEX NO.12-NIACIN ORAL) Take by mouth once daily. multivitamin with minerals (HAIR,SKIN AND NAILS ORAL) Take by mouth once daily. bumetanide (BUMEX) 2 mg tablet Take 2 mg by mouth once daily. lisinopril 2.5 mg tablet Takes one-half tablet by mouth daily lamoTRIgine (LAMICTAL) 200 mg tablet Take 200 mg by mouth once daily. oxyCODONE-acetaminophe n (PERCOCET) 5-325 mg tablet Take 1 tablet by mouth every 4 hours as needed for Pain. isosorbide mononitrate ER (IMDUR) 30 mg 24 hr tablet Take 1 tablet by mouth once daily. take one tablet daily atorvastatin 80 mg tablet Take 80 mg by mouth once daily. pantoprazole 40 mg tablet Take 40 mg by mouth (more content not included)... Normal [facility] CNCOon 03-08-2025 CNCO Letter Text Letter Text Normal [facility] CNPNon 02-25-2025 CNPN Telephone (CARDAGHWW ) GRICELDA NORMAN ([id number]) 1960 F Date Time Provider Department 02[facility] During your visit today, we recorded the following information about you: Juhi Bey RN 02/25/2025 8:10 AM Signed 02/20/25 echo and venous dopplers scanned into [employer] for your review. Juhi Bey RN Allergies As of Date: 02/25/2025 Noted Allergy Reaction ADHESIVE 07/15/2017 2 - Rash 9 - Itching Comments: Plastic bandaids IV DYE (IODINE) 10/14/2003 10 - Anaphylaxis NEOSPORIN ([id number] O*02/28/2009 2 - Rash 9 - Itching PENICILLINS 02/26/2002 14 - Other: See Comments Comments: convulsions Date Reviewed: 01/29/2025 Reviewed by: Nelly Alcazar LPN - Fully Assessed Reason for Visit: Results [95] Prescriptions as of 02/28/2025 - amoxicillin (AMOXIL) 875 mg tablet 1 tablet Oral Twice a day for 90 days - clobetasol (TEMOVATE) 0.05 % cream 1 Application. - meloxicam (MOBIC) 15 mg tablet Take 15 mg by mouth once daily. - pramipexole (MIRAPEX) 1.5 mg tablet Take 1.5 mg by mouth daily at bedtime. - traZODone (DESYREL) 100 mg tablet Take 100 mg by mouth daily at bedtime. 2 tabs at bedtime - vit B complex no.12/niacin,B3, (VITAMIN B COMPLEX NO.12-NIACIN ORAL) Take by mouth once daily. - multivitamin with minerals (HAIR,SKIN AND NAILS ORAL) Take by mouth once daily. - bumetanide (BUMEX) 2 mg tablet Take 2 mg by mouth once daily. - lisinopril 2.5 mg tablet Takes one-half tablet by mouth daily - lamoTRIgine (LAMICTAL) 200 mg tablet Take 200 mg by mouth once daily. - oxyCODONE-acetaminophe n (PERCOCET) 5-325 mg tablet Take 1 tablet by mouth every 4 hours as needed for Pain. - isosorbide mononitrate ER (IMDUR) 30 mg 24 hr tablet Take 1 tablet by mouth once daily. take one tablet daily - atorvastatin 80 mg tablet Take 80 mg by mouth once daily. - pantoprazole 40 mg tablet Take 40 mg by mouth once daily. - Aspirin 81 mg tab Take 81 mg by mouth once daily. Problem List As Of Date 02/25/2025 Noted Resolved Coronary artery disease involving [place] alt[place]irano*08/27/2004 LOC SECONDRY OSTEOARTHR-L/LEG [M17.5] 02/25/2009 SUPERFICIAL INJURY NEC [T07.XXXA] 02/28/2009 CHRONIC SKIN ULCER NOS [L98.499] 02/28/2009 Knee Joint Replacement 07/29/2009 Hallux Rigidus, Acquired [M20.20] 10/02/2009 Post-operative state [Z98.890] 02/11/2010 01/16/2015 Hyperlipidemia [E78.5] 01/16/2015 Hypertension [I10] 01/16/2015 S/P CABG x 3 [Z95.1] 10/05/2015 Atherosclerosis of autologous artery coronary a*10/05/2015 Pneumonia [J18.9] 01/19/2017 Cramp of both lower extremities [R25.2] 01/19/2017 Chest pressure [R07.89] 01/19/2017 Strain of neck muscle [S16.1XXA] 01/19/2017 Old DE (myocardial infarction) [I25.2] Leg swelling [M79.89] 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 [address] Venous Duplex US, Unilateral 02/20/25 1333 MR#: [id number] Acct: [id number] Name: GRICELDA NORMAN Rep #:[id number] : 1960 64 From: Shen Mason Attending Dr: SUSAN BUCK Status: REG CLI Ordering Dr: SUSAN BUCK Date: 08/08 Location: [facility] Sex: F C Admitted: Reason For Study Reason For Study: Right leg swelling RIGHT LEFT CFV is compressible, spontaneous, phasic, competent CFV is compressible, spontaneous, phasic, competent, and demonstrates normal augmentation. and demonstrates normal augmentation. FV is compressible, spontaneous, phasic, competent and demonstrates normal augmentation. POP V is compressible, spontaneous, phasic, competent and demonstrates normal augmentation. T/P Trunk is compressible. PTV is compressible. RT PerV is compressible. GSV harvested for CABG. Procedure This is a venous duplex using B-mode, color flow and spectral Doppler. Exam performed in department. A preliminary report was called and/or faxed to [facility]. VL/Venous Duplex US, Unilateral Interpretation Summary Deep veins of the right lower extremity are patent and compressible segmentally.There is no evidence of right lower extremity deep vein thrombosis. Ordering Physician: SUSAN BUCK Referring Physician: Marietta Johnson Performed By: Thi Villasenor, RVT 02/21/25727 Date _ Shen Parmar MD CC: Dr. Marietta Johnson DO; SUSAN BUCK ~ Date Dictated: 02/20/25 1333 Date Transcribed: 02/21/25727 Soaker: Signed Work Phone: Echo Completeon 02-20-[address] [facility] Cardiovascular Services [address] [place] [address] Echo Complete 02/20/25 1305 MR#: [id number] Acct: [id number] Name: GRICELDA NORMAN Rep #: [id number] : 1960 64 From: Jorge Luis Mendoza MD Attending Dr: SUSAN BUCK Status: REG CLI Ordering Dr: SUSAN BUCK Date: 02/20/25 Location: [facility] Sex: F C Admitted: Reason For Study Reason For Study: SHORTNESS OF BREATH Procedure This was a 2D Doppler, Color Flow transthoracic echocardiogram. Exam performed in department. Left Ventricle Normal LV size. Left ventricular systolic function is normal. The left ventricular ejection fraction is 60 %. No regional wall motion abnormalities noted. Right Ventricle Normal RV size. Normal systolic function. Mitral Valve Normal mitral valve. Trivial eccentric mitral valve insufficiency. Great Vessels Normal aortic root. The pulmonary artery is normal size. Normal inferior vena cava. Pericardium/Pleural No pericardial effusion. MMode/2D Measurements Calculations LVIDd: 5.1 cm IVSd: 0.87 cm Ao root diam: 3.2 cm LVIDs: 3.5 cm LVPWd: 0.96 cm RVDd: 3.1 cm FS: 30.9 % LAV(MOD-bp): 40.4 ml SV(MOD-sp4): 52.7 ml LVAd ap4: 26.7 cm2 LAV(MOD-bp) Indexed: 21.6 ml/m2 LVLd ap4: 7.2 cm SI(MOD-sp4): 28.1 ml/m2 LAV(MOD-sp2): 37.8 ml EDV(MOD-sp4): 83.2 ml LAV(MOD-sp4): 42.7 ml EDV(sp4-el): 83.7 ml LVAs ap4: 15.5 cm2 LVLs ap4: 6.7 cm ESV(MOD-sp4): 30.6 ml ESV(sp4-el): 30.3 ml EF(MOD-sp4): 63.2 % EF(sp4-el): 63.8 % SV(sp4-el): 53.5 ml LA A4 area: 17.8 cm2 LA dimension(2D): 3.9 cm RA A4 area: 16.5 cm2 TAPSE: 1.8 cm Time Measurements MV dec time: 0.19 sec Doppler Measurements Calculations MV E max radha: 90.7 cm/sec Lat Peak E' Radha: 12.6 cm/sec Med Peak E' Ardha: 8.5 cm/sec MV A max radha: 87.9 cm/sec E/E' lat: 7.2 E/E' med: 10.7 MV E/A: 1.0 Ao V2 max: 138.7 cm/sec LV V1 max: 121.4 cm/sec PA V2 max: 120.8 cm/sec Ao max P.7 mmHg LV V1 max P.9 mmHg TR max radha: 264.8 cm/sec TR max P.1 mmHg ECHO/Echo Complete Interpretation Summary Left ventricular systolic function is normal. Normal LV size. The left ventricular ejection fraction is 60 %. Structurally normal valves. Ordering Physician: SUSAN BUCK Referring Physician: MARITETA JOHNSON Performed By: Svitlana Lima RDCS 02/20/251815 Date Jorge Luis Mendoza MD CC: Dr. Marietta Johnson, DO; SUSAN BUCK Date Dictated: 02/20/25 1305 Date Transcribed: 02/20/251815 Soaker: Signed Normal Echocardiogram study reportO rdered By: Jorge Luis Mendoza on 02-20-[address] [facility] Cardi[facility] [address] [place] [address] Echo Complete 02/20/251304 MR#: [id number] Acct: [id number] Name: GRICELDA NORMAN Rep #:[id number] : 1960 64 From: Jorge Luis Mason Attending Dr: SUSAN BUCK Status: REG CLI Ordering Dr: SUSAN BUCK Date: 08/08 Location: [facility] Sex: F C Admitted: Reason For Study Reason For Study: SHORTNESS OF BREATH Procedure This was a 2D Doppler, Color Flow transthoracic echocardiogram. Exam performed in department. Left Ventricle Normal LV size. Left ventricular systolic function is normal. The left ventricular ejection fraction is 60 %. No regional wall motion abnormalities noted. Right Ventricle Normal RV size. Normal systolic function. Mitral Valve Normal mitral valve. Trivial eccentric mitral valve insufficiency. Great Vessels Normal aortic root. The pulmonary artery is normal size. Normal inferior vena cava. Pericardium/Pleural No pericardial effusion. MMode/2D Measurements & Calculations LVIDd: 5.1 cm IVSd: 0.87 cm Ao root diam: 3.2 cm LVIDs: 3.5 cm LVPWd: 0.96 cm RVDd: 3.1 cm FS: 30.9 % LAV(MOD-bp): 40.4 ml SV(MOD-sp4): 52.7 ml LVAd ap4: 26.7 cm2 LAV(MOD-bp) Indexed: 21.6 ml/m2 LVLd ap4: 7.2 cm SI(MOD-sp4): 28.1 ml/m2 LAV(MOD-sp2): 37.8 ml EDV(MOD-sp4): 83.2 ml LAV(MOD-sp4): 42.7 ml EDV(sp4-el): 83.7 ml LVAs ap4: 15.5 cm2 LVLs ap4: 6.7 cm ESV(MOD-sp4): 30.6 ml ESV(sp4-el): 30.3 ml EF(MOD-sp4): 63.2 % EF(sp4-el): 63.8 % SV(sp4-el): 53.5 ml LA A4 area: 17.8 cm2 LA dimension(2D): 3.9 cm RA A4 area: 16.5 cm2 TAPSE: 1.8 cm Time Measurements MV dec time: 0.19 sec Doppler Measurements & Calculations MV E max radha: 90.7 cm/sec Lat Peak E' Radha: 12.6 cm/sec Med Peak E' Radha: 8.5 cm/sec MV A max radha: 87.9 cm/sec E/E' lat: 7.2 E/E' med: 10.7 MV E/A: 1.0 Ao V2 max: 138.7 cm/sec LV V1 max: 121.4 cm/sec PA V2 max: 120.8 cm/sec Ao max P.7 mmHg LV V1 max P.9 mmHg TR max radha: 264.8 cm/sec TR max P.1 mmHg ECHO/Echo Complete Interpretation Summary Left ventricular systolic function is normal. Normal LV size. The left ventricular ejection fraction is 60 %. Structurally normal valves. Ordering Physician: SUSAN BUCK Referring Physician: MARIETTA JOHNSON Performed By: Svitlana Lima RDCS 02/20/25 1816 Date _ Jorge Luis Mendoza MD CC: Dr. Marietta Johnson, DO; SUSAN BUCK ~ Date Dictated: 02/20/25 1305 Date Transcribed: 02/20/25 1816 Soaker: Signed Work Phone: Venous Duplex US, Unilateral on 02-20-2025 Venous Duplex US, Unilateral [facility] [address] [place] [address] Venous Duplex US, Unilateral 02/20/25 1333 MR#: [id number] Acct: [id number] Name: GRICELDA NORMAN Rep #: [id number] : 1960 64 From: Shen Parmar MD Attending Dr: SUSAN BUCK Status: REG CLI Ordering Dr: SUSAN BUCK Date: 02/20/25 Location: [facility] Sex: F C Admitted: Reason For Study Reason For Study: Right leg swelling RIGHT LEFT CFV is compressible, spontaneous, phasic, competent CFV is compressible, spontaneous, phasic, competent, and demonstrates normal augmentation. and demonstrates normal augmentation. FV is compressible, spontaneous, phasic, competent and demonstrates normal augmentation. POP V is compressible, spontaneous, phasic, competent and demonstrates normal augmentation. T/P Trunk is compressible. PTV is compressible. RT PerV is compressible. GSV harvested for CABG. Procedure This is a venous duplex using B-mode, color flow and spectral Doppler. Exam performed in department. A preliminary report was called and/or faxed to [facility]. VL/Venous Duplex US, Unilateral Interpretation Summary Deep veins of the right lower extremity are patent and compressible segmentally. There is no evidence of right lower extremity deep vein thrombosis. Ordering Physician: SUSAN BUCK Referring Physician: Marietta Johnson Performed By: Thi Villasenor, T 02/21/25727 Date Shen Parmar MD CC: Dr. Marietta Johnson DO; SUSAN BUCK Date Dictated: 02/20/25 1333 Date Transcribed: 02/21/25727 Soaker: Signed Normal CNOVon 01-29-2025 CNOV Office Visit ([facility] ) GRICELDA NORMAN ([id number]) 1960 F Date Time Provider Department 01/29/25 11:00 AM SUSAN BUCK During your visit today, we recorded the following information about you: Pulse Respiration Blood pressure Weight 62/minute 18/minute 132/76 84.1 kg Height 1.588 m Nelly Alcazar LPN 01/29/2025 11:17 AM Signed Patient c/o swelling in BLE. Swelling in RLE greater than left. Susan Buck, AIRWAYS CONTROL SPECIALIST.TREASURY CONSULTANT 01/29/2025 11:00 AM Addendum Obtain US of your leg Obtain ECHO of your heart Avoid anti-inflammatory medications.. When you get testing done in [place] or [place], If I dont call you in 3 days after you have the test don , Call the office so I can find the results. Susan Buck, CHARLEY.TREASURY CONSULTANT 01/29/2025 11:17 AM Signed PRIMARY CARE PHYSICIAN: Liliya Lara [address] [place] [address] Chief Complaint Patient presents with: CARD Follow Up 6 Month: CAD HISTORY OF PRESENT ILLNESS: Ms. Norman is a 63 year old female who is known to Dr. Espino last seeing him in the office in October 2022, she also follows with Dr. Woo at [facility] patient has a history of coronary artery disease status post coronary bypass graft surgery, hyperlipidemia, hypertension, chronic diastolic heart failure, bradycardia In December she began having bilateral lower extremity edema, she saw her pcp, she had labs which she shared on her phone with me BNP CBC, BMP normal. Patient denies any anginal complaints, she states she has missed a few doses of her oral Bumex therapy. 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, she is also states she could not tolerate compression socks or compression wraps PAST MEDICAL HISTORY Diagnosis Date Acute myocardial [...] Social History Tobacco Use Smoking status: Former Current packs/day: 0.00 Average packs/day: 1 pack/day for 20.0 years (20.0 ttl pk-yrs) Types: Cigarettes Start date: 08/27/1981 Quit date: 08/27/2001 Years since quittin.4 Smokeless tobacco: Never Tobacco comments: d/c 08/27/01 Vaping Use Vaping status: Never Used Substance Use Topics Alcohol use: Yes Comment: occ wine Drug use: No ALLERGIES Allergen Reactions Adhesive Rash, Itching Plastic bandaids Iv Dye [Iodine] Anaphylaxis Neosporin [Neomycin* Rash, Itching Penicillins Other: See Comments convulsions Medications: Current Outpatient Medications Medication Sig Dispense Refill amoxicillin (AMOXIL) 875 mg tablet 1 tablet Oral Twice a day for 90 days clobetasol (TEMOVATE) 0.05 % cream 1 Application. meloxicam (MOBIC) 15 mg tablet Take 15 mg by mouth once daily. pramipexole (MIRAPEX) 1.5 mg tablet Take 1.5 mg by mouth daily at bedtime. traZODone (DESYREL) 100 mg tablet Take 100 mg by mouth daily at bedtime. 2 tabs at bedtime vit B complex no.12/niacin,B3, (VITAMIN B COMPLEX NO.12-NIACIN ORAL) Take by mouth once daily. multivitamin with minerals (HAIR,SKIN AND NAILS ORAL) Take by mouth once daily. bumetanide (BUMEX) 2 mg tablet Take 2 mg by mouth once daily. lisinopril 2.5 mg tablet Takes one-half tablet by mouth daily lamoTRIgine (LAMICTAL) 200 mg tablet Take 200 mg by mouth once daily. oxyCODONE-acetaminophe n (PERCOCET) 5-325 mg tablet Take 1 tablet [...] Take 81 mg by mouth once daily. No current facility-administ (more content not included)... Normal [facility] XR ORTHO ANKLE RIGHT 2 VIEWS on 01-22-2025 XR ORTHO ANKLE RIGHT 2 VIEWS 3 views of the right foot and 2 views of the ankle reviewed today AP MO and lateral the foot and AP ankle mortise of the ankle. No acute fracture or dislocation of note. Persistent visualization of significant arthritis noted through the midfoot and rear foot. Subtle subluxation of the ankle joint distally. Subchondral sclerosis noted through the midtarsal joints and TN joint. Ankle joint is overall fairly concentric mild subchondral sclerosis but largely maintenance of joint height mild narrowing laterally greater than medially. Dictated by: CLYDE TENA on TueJan 28, 2025 4:36:32 PM EDT Transcribed by: CLYDE TENA on TueJan 28, 2025 4:36:32 PM EDT Finalized by: CLYDE TENA on TueJan 28, 2025 4:36:32 PM EDT [facility] Comment on above: Order Comment: Injur y/Trauma or Illness?:Illness/Other How long have you had these symptoms (acute/chronic)?:Unknown Reason for exam?:Right ankle pain History of cancer?:Unknown Surgeries, chemotherapy, or radiation?:bunionectomy Type of Exam?:Initial Additional signs and symptoms?:Right ankle pain XR ORTHO FOOT RIGHTon 2024 XR ORTHO FOOT RIGHT 3 views of the right foot and 2 views of the ankle reviewed today AP MO and lateral the foot and AP ankle mortise of the ankle. No acute fracture or dislocation of note. Persistent visualization of significant arthritis noted through the midfoot and rear foot. Subtle subluxation of the ankle joint distally. Subchondral sclerosis noted through the midtarsal joints and TN joint. Ankle joint is overall fairly concentric mild subchondral sclerosis but largely maintenance of joint height mild narrowing laterally greater than medially. Dictated by: CLYDE TENA on TueJan 28, 2025 4:36:19 PM EDT Transcribed by: CLYDE TENA on TueJan 28, 2025 4:36:19 PM EDT Finalized by: CLYDE TENA on TueJan 28, 2025 4:36:19 PM EDT [facility] Comment on above: Order Comment: Injur y/Trauma or Illness?:Illness/Other How long have you had these symptoms (acute/chronic)?:Unknown Reason for exam?:Right foot pain History of cancer?:Unknown Surgeries, chemotherapy, or radiation?:bunionectomy Type of Exam?:Initial Additional signs and symptoms?:Right foot pain XR ANKLE RIGHT 2 VIEWSon XR ANKLE RIGHT 2 VIEWS Interpreted By: Maykel Barragan, STUDY: XR ANKLE RIGHT 2 VIEWS; ; 01/15/2025 10:54 am INDICATION: Signs/Symptoms:ACUTE RIGHT ANKLE PAIN. ,M25.571 Pain in right ankle and joints of right foot COMPARISON: None. ACCESSION NUMBER(S): [id number] ORDERING CLINICIAN: MARIETTA JOHNSON FINDINGS: RIGHT ANKLE-AP, LATERAL No fracture is seen. Mild narrowing of the talotibial joint is present anteriorly consistent with degenerative joint disease. Marked degenerative changes are present between the distal talus and the navicular with prominent osteophytes on the dorsal aspect of the proximal foot. Marked swelling is present over the medial and lateral aspects of the ankle. IMPRESSION: Soft tissue swelling over both sides of the ankle. Degenerative changes at the talonavicular joint. MACRO: None Signed by: Maykel Barragan 01/16/2025 2:58 PM Dictation workstation: [id number] [facility] XR FOOT RIGHT 3+ VIEWS (ANDREI DARD)on 12-12-2024 XR FOOT RIGHT 3+ VIEWS (STANDARD) No acute fractures or dislocations noted. Intact plate and screw fixation noted across the first metatarsophalangeal joint arthrodesis site. No signs of lucency or failure. Joint space narrowing noted across the tarsometatarsal joints Absence of joint space noted across the talonavicular joint with subchondral sclerosis and dorsal hyperostosis noted. Degenerative arthritic changes noted across the lateral aspect of the subtalar and ankle joints Dictated by: TATIANA HERNANDEZ on TueDec 12, 2024 9:25:59 PM EST Transcribed by: TATIANA HERNANDEZ on TueDec 12, 2024 9:25:59 PM EST Finalized by: TATIANA HERNANDEZ on TueDec 12, 2024 9:25:59 PM EST Normal [facility] Comment on above: Order Comment: Injur y/Trauma or Illness?:Injury/Trauma How long have you had these symptoms (acute/chronic)?:Acute Reason for exam?:right foot pain where you scrapped last visit History of cancer?:u Surgeries, chemotherapy, or radiation?:bunionectomy Type of Exam?:Initial Mechanism of injury?:none Lamotrigine (Lamictal) Level on 10-19-2024 LAMOTRIGINE 4.1 ug/mL Normal 2.0-20.0 Comment on above: Result Comment: Dete ction Limit = 1.0 Performed at: - [facility] [id number] Exchange Clerk: Brittani Moyer MD, Phone: [phone] Performed By: #### L 647.6072, L3300.4400, L100.0100 #### Laboratory [address] [place], [address] BNP,B-Type NATRIURETIC PEPTI Nena 10-17-2024 Natriuretic peptide B (Bld) [Mass/Vol] 90.5 pg/mL Normal 0-100 Comment on above: Performed By: #### L 503.6620, L3300.4400, L100.0100 #### Laboratory [address] [place], [address] CBC W/Diff, Automatedon Absolute Lymph 1.51 X10 3/uL Normal 0.83-4.51 Comment on above: Performed By: #### L 503.6620, L3300.4400, L100.0100 #### Laboratory [address] [place], [address] Absolute Neut 3.6 X10 3/uL Normal 2.0-7.7 Comment on above: Performed By: #### L 503.6620, L3300.4400, L100.0100 #### Laboratory [address] [place], [address] Basophils/100 WBC (Bld) 0.3 % Normal 0-1 Comment on above: Performed By: #### L 503.6620, L3300.4400, L100.0100 #### Laboratory [address] [place], [address] Eosinophils/100 WBC (Bld) 2.1 % Normal 0-5 Comment on above: Performed By: #### L 503.6620, L3300.4400, L100.0100 #### Laboratory [address] [place], [address] Erythrocyte distribution width (RBC) [Ratio] 13.6 % Normal 11.6-14.6 Comment on above: Performed By: #### L 503.6620, L3300.4400, L100.0100 #### Laboratory [address] [place], [address] Hematocrit (Bld) [Volume fraction] 40.0 % Normal 37-47 Comment on above: Performed By: #### L 503.6620, L3300.4400, L100.0100 #### Laboratory [address] [place], [address] Hemoglobin (Bld) [Mass/Vol] 13.2 g/dL Normal 12.0-15.0 Comment on above: Performed By: #### L 503.6620, L3300.4400, L100.0100 #### Laboratory [address] [place], [address] IG% 0.300 Normal 0.0-0.9 Comment on above: Result Comment: IG% - Immature Granulocytes (promyelocytes, myelocytes and metamyelocytes) > 1% indicates that a LEFT SHIFT is Present. Performed By: #### L 503.6620, L3300.4400, L100.0100 #### Laboratory [address] [place], [address] Lymphocytes/100 WBC (Bld) 26.4 % Normal 19-41 Comment on above: Performed By: #### L 503.6620, L3300.4400, L100.0100 #### Laboratory [address] [place], [address] MCH (RBC) [Entitic mass] 29.3 pg Normal 27.0-32.0 Comment on above: Performed By: #### L 503.6620, L3300.4400, L100.0100 #### Laboratory [address] [place], [address] MCHC (RBC) [Mass/Vol] 33.0 g/dL Normal 32-36 [facility] Comment on above: Performed By: #### L 503.6620, L3300.4400, L100.0100 #### Laboratory [address] [place], [address] MCV (RBC) [Entitic vol] 88.7 fL Normal 81-99 Comment on above: Performed By: #### L 503.6620, L3300.4400, L100.0100 #### Laboratory [address] [place], [address] Monocytes/100 WBC (Bld) 8.4 % Normal 0-10 Comment on above: Performed By: #### L 503.6620, L3300.4400, L100.0100 #### Laboratory [address] [place], [address] Neutrophils/100 WBC (Bld) 62.5 % Normal 47-70 Comment on above: Performed By: #### L 503.6620, L3300.4400, L100.0100 #### Laboratory [address] [place], [address] Nucleated RBC (Bld) [#/Vol] 0 10*3/uL Normal 0-5 Comment on above: Performed By: #### L 503.6620, L3300.4400, L100.0100 #### Laboratory [address] [place], [address] Platelet mean volume (Bld) [Entitic vol] 12.1 fL High 6.2-12.0 Comment on above: Performed By: #### L 503.6620, L3300.4400, L100.0100 #### Laboratory [address] [place], [address] Platelets (Bld) [#/Vol] 204 10*3/uL Normal 150-450 Comment on above: Performed By: #### L 503.6620, L3300.4400, L100.0100 #### Laboratory [address] [place], [address] RBC (Bld) [#/Vol] 4.51 10*6/uL Normal 4.2-5.4 [facility] Comment on above: Performed By: #### L 503.6620, L3300.4400, L100.0100 #### Laboratory [address] [place], [address] RDW SD 44.2 fl High 35.1-43.9 Comment on above: Performed By: #### L 503.6620, L3300.4400, L100.0100 #### Laboratory [address] [place], [address] WBC (Bld) [#/Vol] 5.7 10*3/uL Normal 4.4-11.0 [facility] Comment on above: Performed By: #### L 503.6620, L3300.4400, L100.0100 #### Laboratory [address] [place], [address] XR FOOT LEFT 3+ VIEWS (STAND KLEVER)on 08-13-2024 XR FOOT LEFT 3+ VIEWS (STANDARD) No acute fractures or dislocations noted. Plate and screw fixation noted across the first bilateral phalangeal joint with osseous consolidation across the arthrodesis site Joint space narrowing noted across the midfoot and midtarsal joints. Dictated by: TATIANA HERNANDEZ on TueAug 16, 2024 9:21:00 AM EDT Transcribed by: TATIANA HERNANDEZ on TueAug 16, 2024 9:21:00 AM EDT Finalized by: TATIANA HERNANDEZ on TueAug 16, 2024 9:21:00 AM EDT Normal [facility] Comment on above: Order Comment: Injur y/Trauma or Illness?:Illness/Other How long have you had these symptoms (acute/chronic)?:Chronic Reason for exam?:pain History of cancer?:u Surgeries, chemotherapy, or radiation?:bunionectomy Type of Exam?:Initial Additional signs and symptoms?:hardware XR FOOT RIGHT 3+ VIEWS (ANDREI BETI)on 08-13-2024 XR FOOT RIGHT 3+ VIEWS (STANDARD) No acute fractures or dislocations noted. Subluxation of the second metatarsophalangeal joint Plate and screw fixation noted across the first bilateral phalangeal joint with osseous consolidation across the arthrodesis site Joint space narrowing noted across the midfoot and midtarsal joints, especially at the talonavicular joint. Dictated by: TATIANA HERNANDEZ on Lilia Aug 16, 2024 9:21:21 AM EDT Transcribed by: TATIANA HERNANDEZ on [facility] Aug 16, 2024 9:21:21 AM EDT Finalized by: TATIANA HERNANDEZ on [facility] Aug 16, 2024 9:21:21 AM EDT Normal [facility] Comment on above: Order Comment: Injur y/Trauma or Illness?:Illness/Other How long have you had these symptoms (acute/chronic)?:Chronic Reason for exam?:pain History of cancer?:u Surgeries, chemotherapy, or radiation?:bunionectomy Type of Exam?:Initial Additional signs and symptoms?:hardware Lamotrigine (Lamictal) Level on 07-09-2024 LAMOTRIGINE 4.4 ug/mL Normal 2.0-20.0 Comment on above: Order Comment: PER P T-JUST THIS ORDER Result Comment: Dete ction Limit = 1.0 Performed at: [address] [id number] Exchange Clerk: Brittani Moyer MD, Phone: [phone] Performed By: #### L 500.3035, L3300.1361, L100.0100, L500.4109 #### [id number] [place], [place], [id number] CBC W/Diff, Automatedon 06-15 Absolute Lymph 1.86 X10 3/uL Normal 0.83-4.51 Comment on above: Order Comment: PER P T-JUST THIS ORDER Performed By: #### L 500.4050, L3300.4400, L100.0100, L500.4100 #### [id number] [place], [address] Absolute Neut 4.4 X10 3/uL Normal 2.0-7.7 Comment on above: Order Comment: PER P T-JUST THIS ORDER Performed By: #### L 500.4050, L3300.4400, L100.0100, L500.4100 #### [id number] [place], [address] Basophils/100 WBC (Bld) 0.3 % Normal 0-1 Comment on above: Order Comment: PER P T-JUST THIS ORDER Performed By: #### L 500.4050, L3300.4400, L100.0100, L500.4100 #### [id number] [place], [address] Eosinophils/100 WBC (Bld) 2.5 % Normal 0-5 Comment on above: Order Comment: PER P T-JUST THIS ORDER Performed By: #### L 500.4050, L3300.4400, L100.0100, L500.4100 #### [id number] [place], [address] Erythrocyte distribution width (RBC) [Ratio] 13.9 % Normal 11.6-14.6 Comment on above: Order Comment: PER P T-JUST THIS ORDER Performed By: #### L 500.4050, L3300.4400, L100.0100, L500.4100 #### [id number] [place], [address] Hematocrit (Bld) [Volume fraction] 38.8 % Normal 37-47 Comment on above: Order Comment: PER P T-JUST THIS ORDER Performed By: #### L 500.4050, L3300.4400, L100.0100, L500.4100 #### [id number] [place], [address] Hemoglobin (Bld) [Mass/Vol] 12.9 g/dL Normal 12.0-15.0 Comment on above: Order Comment: PER P T-JUST THIS ORDER Performed By: #### L 500.4050, L3300.4400, L100.0100, L500.4100 #### [id number] [place], [address] IG% 0.100 Normal 0.0-0.9 Comment on above: Order Comment: PER P T-JUST THIS ORDER Result Comment: IG% - Immature Granulocytes (promyelocytes, myelocytes and metamyelocytes) > 1% indicates that a LEFT SHIFT is Present. Performed By: #### L 500.4050, L3300.4400, L100.0100, L500.4100 #### [id number] [place], [address] Lymphocytes/100 WBC (Bld) 26.3 % Normal 19-41 Comment on above: Order Comment: PER P T-JUST THIS ORDER Performed By: #### L 500.4050, L3300.4400, L100.0100, L500.4100 #### [id number] [place], [address] MCH (RBC) [Entitic mass] 29.7 pg Normal 27.0-32.0 Comment on above: Order Comment: PER P T-JUST THIS ORDER Performed By: #### L 500.4050, L3300.4400, L100.0100, L500.4100 #### [id number] [place], [address] MCHC (RBC) [Mass/Vol] 33.2 g/dL Normal 32-36 [facility] Comment on above: Order Comment: PER P T-JUST THIS ORDER Performed By: #### L 500.4050, L3300.4400, L100.0100, L500.4100 #### [address] [place], [address] MCV (RBC) [Entitic vol] 89.2 fL Normal 81-99 Comment on above: Order Comment: PER P T-JUST THIS ORDER Performed By: #### L 500.4050, L3300.4400, L100.0100, L500.4100 #### [id number] [place], [address] Monocytes/100 WBC (Bld) 7.9 % Normal 0-10 Comment on above: Order Comment: PER P T-JUST THIS ORDER Performed By: #### L 500.4050, L3300.4400, L100.0100, L500.4100 #### [id number] [place], [address] Neutrophils/100 WBC (Bld) 62.9 % Normal 47-70 Comment on above: Order Comment: PER P T-JUST THIS ORDER Performed By: #### L 500.4050, L3300.4400, L100.0100, L500.4100 #### [id number] [place], [address] Nucleated RBC (Bld) [#/Vol] 0 10*3/uL Normal 0-5 Comment on above: Order Comment: PER P T-JUST THIS ORDER Performed By: #### L 500.4050, L3300.4400, L100.0100, L500.4100 #### [id number] [place], [address] Platelet mean volume (Bld) [Entitic vol] 12.2 fL High 6.2-12.0 Comment on above: Order Comment: PER P T-JUST THIS ORDER Performed By: #### L 500.4050, L3300.4400, L100.0100, L500.4100 #### [id number] [place], [address] Platelets (Bld) [#/Vol] 200 10*3/uL Normal 150-450 Comment on above: Order Comment: PER P T-JUST THIS ORDER Performed By: #### L 500.4050, L3300.4400, L100.0100, L500.4100 #### [address] [place], [address] RBC (Bld) [#/Vol] 4.35 10*6/uL Normal 4.2-5.4 [facility] Comment on above: Order Comment: PER P T-JUST THIS ORDER Performed By: #### L 500.4050, L3300.4400, L100.0100, L500.4100 #### [address] [place], [address] RDW SD 45.3 fl High 35.1-43.9 Comment on above: Order Comment: PER P T-JUST THIS ORDER Performed By: #### L 500.4050, L3300.4400, L100.0100, L500.4100 #### [id number] [place], [address] WBC (Bld) [#/Vol] 7.1 10*3/uL Normal 4.4-11.0 [facility] Comment on above: Order Comment: PER P T-JUST THIS ORDER Performed By: #### L 500.4050, L3300.4400, L100.0100, L500.4100 #### [id number] [place], [address] Comprehensive Metabolic Prof ilon 07-05-2024 Albumin [Mass/Vol] 3.7 g/dL Normal 3.2-5.0 [facility] Comment on above: Order Comment: PER P T-JUST THIS ORDER Performed By: #### L 500.4050, L3300.4400, L100.0100, L500.4100 #### [id number] [place], [address] Albumin/Globulin [Mass ratio] 1.2 {ratio} Normal 0.9-2.4 Comment on above: Order Comment: PER P T-JUST THIS ORDER Performed By: #### L 500.4050, L3300.4400, L100.0100, L500.4100 #### [id number] [place], [address] ALK P 122 U/L High 45-117 Comment on above: Order Comment: PER P T-JUST THIS ORDER Performed By: #### L 500.4050, L3300.4400, L100.0100, L500.4100 #### [id number] [place], [address] ALT [Catalytic activity/Vol] 22 U/L Normal 13-56 Comment on above: Order Comment: PER P T-JUST THIS ORDER Performed By: #### L 500.4050, L3300.4400, L100.0100, L500.4100 #### [address] [place], [address] AST [Catalytic activity/Vol] 18 U/L Normal 15-37 Comment on above: Order Comment: PER P T-JUST THIS ORDER Performed By: #### L 500.4050, L3300.4400, L100.0100, L500.4100 #### [id number] [place], [address] Bilirubin [Mass/Vol] 0.50 mg/dL Normal 0.20-1.00 [facility] Comment on above: Order Comment: PER P T-JUST THIS ORDER Result Comment: For patients on eltrombopag therapy, use of Dimension [place] TBIL is not recommended. Performed By: #### L 500.4050, L3300.4400, L100.0100, L500.4100 #### [id number] [place], [address] BUN/CRE 18.0 RATIO Normal 10-20 Comment on above: Order Comment: PER P T-JUST THIS ORDER Performed By: #### L 500.4050, L3300.4400, L100.0100, L500.4100 #### [id number] [place], [address] CA,Total 9.0 mg/dL Normal 8.5-10.1 Comment on above: Order Comment: PER P T-JUST THIS ORDER Performed By: #### L 500.4050, L3300.4400, L100.0100, L500.4100 #### [id number] [place], [address] Chloride [Moles/Vol] 105 mmol/L Normal 98-107 [facility] Comment on above: Order Comment: PER P T-JUST THIS ORDER Performed By: #### L 500.4050, L3300.4400, L100.0100, L500.4100 #### [address] [place], [address] CO2 [Moles/Vol] 25.0 mmol/L Normal 21.0-32.0 Comment on above: Order Comment: PER P T-JUST THIS ORDER Performed By: #### L 500.4050, L3300.4400, L100.0100, L500.4100 #### [address] [place], [address] Creatinine [Mass/Vol] 0.78 mg/dL Normal 0.55-1.02 [facility] Comment on above: Order Comment: PER P T-JUST THIS ORDER Result Comment: The validity of the calculated GFR GFRAA in patients over 70 years has not been determined. Clinical correlation is essential. Performed By: #### L 500.4050, L3300.4400, L100.0100, L500.4100 #### [id number] [place], [address] EST GFR - AA 96 mL/min Normal >60 Comment on above: Order Comment: PER P T-JUST THIS ORDER Result Comment: Afri can [place] GFR Calc Performed By: #### L 500.4050, L3300.4400, L100.0100, L500.4100 #### [address] [place], [address] GAP 8 Normal 5-15 Comment on above: Order Comment: PER P T-JUST THIS ORDER Performed By: #### L 500.4050, L3300.4400, L100.0100, L500.4100 #### [id number] [place], [address] GFR/1.73 sq M.predicted among non-blacks MDRD (S/P/Bld) [Vol rate/Area] 79 mL/min/{1.73_m2} Normal >60 Comment on above: Order Comment: PER P T-JUST THIS ORDER Result Comment: Non- GFR Calc Performed By: #### L 500.4050, L3300.4400, L100.0100, L500.4100 #### [id number] [place], [address] Globulin (S) [Mass/Vol] 3.0 g/dL Normal 2.2-4.2 Comment on above: Order Comment: PER P T-JUST THIS ORDER Performed By: #### L 500.4050, L3300.4400, L100.0100, L500.4100 #### [id number] [place], [address] Glucose [Mass/Vol] 82 mg/dL Normal 74-106 [facility] Comment on above: Order Comment: PER P T-JUST THIS ORDER Performed By: #### L 500.4050, L3300.4400, L100.0100, L500.4100 #### [id number] [place], [address] Potassium [Moles/Vol] 3.6 mmol/L Normal 3.5-5.1 [facility] Comment on above: Order Comment: PER P T-JUST THIS ORDER Performed By: #### L 500.4050, L3300.4400, L100.0100, L500.4100 #### [id number] [place], [address] Sodium [Moles/Vol] 138 mmol/L Normal 136-145 [facility] Comment on above: Order Comment: PER P T-JUST THIS ORDER Performed By: #### L 500.4050, L3300.4400, L100.0100, L500.4100 #### [id number] [place], [address] T PROT 6.7 g/dL Normal 6.4-8.2 Comment on above: Order Comment: PER P T-JUST THIS ORDER Performed By: #### L 500.4050, L3300.4400, L100.0100, L500.4100 #### [id number] [place], [address] Urea nitrogen [Mass/Vol] 14 mg/dL Normal 7-18 Comment on above: Order Comment: PER P T-JUST THIS ORDER Performed By: #### L 500.4050, L3300.4400, L100.0100, L500.4100 #### [id number] [place], [address] Lipid Profileon 07-05-2024 Cholesterol [Mass/Vol] 171 mg/dL Normal 200 Comment on above: Order Comment: PER P T-JUST THIS ORDER Result Comment: <200 mg/dL Desirable 200-240 mg/dL Borderline >240 mg/dL High Risk Performed By: #### L 500.4050, L3300.4400, L100.0100, L500.4100 #### [id number] [place], [address] Cholesterol in HDL [Mass/Vol] 74 mg/dL Normal Comment on above: Order Comment: PER P T-JUST THIS ORDER Result Comment: The drugs N-Acetylcysteine and Metamizole may falsely depress this assay. Reference Range HDL <40 mg/dL Low HDL Cholesterol HDL >or= 60 mg/dL High HDL Cholesterol Performed By: #### L 500.4050, L3300.4400, L100.0100, L500.4100 #### [id number] [place], [address] Cholesterol in LDL [Mass/Vol] 85 mg/dL Normal 0-130 Comment on above: Order Comment: PER P T-JUST THIS ORDER Performed By: #### L 500.4050, L3300.4400, L100.0100, L500.4100 #### [address] [place], [address] Cholesterol in VLDL [Mass/Vol] 12 mg/dL Normal 5-40 Comment on above: Order Comment: PER P T-JUST THIS ORDER Performed By: #### L 500.4050, L3300.4400, L100.0100, L500.4100 #### [id number] [place], [address] Triglyceride [Mass/Vol] 60 mg/dL Normal Comment on above: Order Comment: PER P T-JUST THIS ORDER Result Comment: The drugs N-Acetylcysteine and Metamizole may falsely depress this assay. Serum Triglycerides Reference Interval Normal <150 mg/dL Borderline high 150 - 199 mg/dL High 200 - 499 mg/dL Very High > or = 500 mg/dL Performed By: #### L 500.4050, L3300.4400, L100.0100, L500.4100 #### [id number] [place], [address] CBC W/Diff, Automatedon 06-14 Absolute Lymph 1.78 X10 3/uL Normal 0.83-4.51 Comment on above: Performed By: #### L 100.0100, L501.6710, L101.9900 #### Laboratory [address] [place], [address] Absolute Neut 4.2 X10 3/uL Normal 2.0-7.7 Comment on above: Performed By: #### L 100.0100, L501.6710, L101.9900 #### Laboratory [address] [place], [address] Basophils/100 WBC (Bld) 0.4 % Normal 0-1 Comment on above: Performed By: #### L 100.0100, L501.6710, L101.9900 #### Laboratory [address] [place], [address] Eosinophils/100 WBC (Bld) 1.8 % Normal 0-5 Comment on above: Performed By: #### L 100.0100, L501.6710, L101.9900 #### Laboratory [address] [place], [address] Erythrocyte distribution width (RBC) [Ratio] 14.3 % Normal 11.6-14.6 Comment on above: Performed By: #### L 100.0100, L501.6710, L101.9900 #### Laboratory [address] [place], [address] Hematocrit (Bld) [Volume fraction] 40.0 % Normal 37-47 Comment on above: Performed By: #### L 100.0100, L501.6710, L101.9900 #### Laboratory [address] [place], [address] Hemoglobin (Bld) [Mass/Vol] 12.9 g/dL Normal 12.0-15.0 Comment on above: Performed By: #### L 100.0100, L501.6710, L101.9900 #### Laboratory [address] [place], [address] IG% 0.100 Normal 0.0-0.9 Comment on above: Result Comment: IG% - Immature Granulocytes (promyelocytes, myelocytes and metamyelocytes) > 1% indicates that a LEFT SHIFT is Present. Performed By: #### L 100.0100, L501.6710, L101.9900 #### Laboratory [address] [place], [address] Lymphocytes/100 WBC (Bld) 26.6 % Normal 19-41 Comment on above: Performed By: #### L 100.0100, L501.6710, L101.9900 #### Laboratory [address] [place], [address] MCH (RBC) [Entitic mass] 29.0 pg Normal 27.0-32.0 Comment on above: Performed By: #### L 100.0100, L501.6710, L101.9900 #### Laboratory [address] [place], [address] MCHC (RBC) [Mass/Vol] 32.3 g/dL Normal 32-36 [facility] Comment on above: Performed By: #### L 100.0100, L501.6710, L101.9900 #### Laboratory [address] [place], [address] MCV (RBC) [Entitic vol] 89.9 fL Normal 81-99 Comment on above: Performed By: #### L 100.0100, L501.6710, L101.9900 #### Laboratory [address] [place], [address] Monocytes/100 WBC (Bld) 7.8 % Normal 0-10 Comment on above: Performed By: #### L 100.0100, L501.6710, L101.9900 #### Laboratory [address] [place], [address] Neutrophils/100 WBC (Bld) 63.3 % Normal 47-70 Comment on above: Performed By: #### L 100.0100, L501.6710, L101.9900 #### Laboratory [address] [place], [address] Nucleated RBC (Bld) [#/Vol] 0 10*3/uL Normal 0-5 Comment on above: Performed By: #### L 100.0100, L501.6710, L101.9900 #### Laboratory [address] [place], [address] Platelet mean volume (Bld) [Entitic vol] 12.5 fL High 6.2-12.0 Comment on above: Performed By: #### L 100.0100, L501.6710, L101.9900 #### Laboratory [address] [place], [address] Platelets (Bld) [#/Vol] 222 10*3/uL Normal 150-450 Comment on above: Performed By: #### L 100.0100, L501.6710, L101.9900 #### Laboratory [address] [place], [address] RBC (Bld) [#/Vol] 4.45 10*6/uL Normal 4.2-5.4 [facility] Comment on above: Performed By: #### L 100.0100, L501.6710, L101.9900 #### Laboratory [address] [place], [address] RDW SD 46.7 fl High 35.1-43.9 Comment on above: Performed By: #### L 100.0100, L501.6710, L101.9900 #### Laboratory [address] [place], [address] WBC (Bld) [#/Vol] 6.7 10*3/uL Normal 4.4-11.0 [facility] Comment on above: Performed By: #### L 100.0100, L501.6710, L101.9900 #### Laboratory [address] [place], [address] CRPon 06-27-2024 C-REACTIVE PROT 5.80 mg/L High 0.0-3.0 Comment on above: Result Comment: C-Re active Protein (CRP) provides useful information for the diagnosis, therapy and monitoring of inflammatory processes and associated diseases. For the evaluation of Relative Risk for Cardiovascular Disease, a High Sensitivity CRP (HSCRP) should be ordered. Performed By: #### L 100.0100, L501.6710, L101.9900 #### [id number] [place], [address] Erythrocyte Sed Rateon 06-27 SED RATE 8 mm/hr Normal 0-30 Comment on above: Performed By: #### L 100.0100, L501.6710, L101.9900 #### Laboratory [address] [place], [address] L/S Spine Min 4 Viewson 06-14 L/S Spine Min 4 Views [facility] [address] [place] [address] L/S Spine Min 4 Views MR#: [id number] Acct: [id number] Name: GRICELDA NORMAN Rep #: [id number] : 1960 F 63 From: Nicolle Rome MD PCP: Dr. Marietta Johnson DO Status: DEP AMB Study: L/S Spine Min 4 Views Date of Exam: 06/27/24 Exam# [id number] Ordering Dr: Becky Chinchilla [id number] STUDY: X-RAY - LUMBAR SPINE REASON FOR EXAM: Female, 63 years old. low back pain -- please do upright AP, LAT, flexion, extension TECHNIQUE: 4 view(s) of the lumbar spine were obtained. COMPARISON: 04/13/2024 FINDINGS: Normal lumbar lordosis. There is no substantial scoliosis. Status post transpedicular fixation from L2 through L4 with anatomic alignment. No subluxation on the flexion extension views to suggest instability. There is multilevel endplate spondylosis of the lumbar vertebrae. There is multi-level degenerative disc disease with multi-level disc space narrowing. Multilevel facet hypertrophy. The soft tissue structures are unremarkable. RAD/L/S Spine Min 4 Views IMPRESSION: Postsurgical changes and degenerative disc disease as described above. No instability. Electronically Signed: Nicolle Rome MD at 12:07 EDT , CC: ASTON Christy; Dr. Marietta Johnson DO Soaker: Signed Normal Orthopedic Visit Reporton Orthopedic Visit Report [facility] [address] [place] [address] OFFICE VISIT Date of Service: 06/27/24 MR#: [id number] Acct: [id number] Name: GRICELDA NORMAN Rep #: [id number] : 1960 Provider: Dr. Joe Garcia MD Age/Sex: 63/F Location: [facility] [place] Status: Signed Intake Vital Signs 04/13/24 10:40 Height 5 ft 3 in Intake Visit Reasons: LUMBAR SPINE Chief Complaint: lumbar spine Is patient in pain?: Yes (low back ) Pain scale (1-10): 10 Allergies Iodinated Contrast Media Allergy (Verified 06/27/24 13:50) Rash Penicillins Allergy (Verified 06/27/24 13:50) Swelling Medications ???Medication ???Instructions ???Recorded ???Confirmed ???Type escitalopram oxalate 20 mg tablet 20 mg PO DAILY ANXIETY 12/15/23 06/27/24 History lamotrigine 200 mg tablet 200 mg PO DAILY BIPOLAR 12/15/23 06/27/24 History pantoprazole 20 mg tablet,delayed 20 mg PO DAILY GERD 12/15/23 06/27/24 History release aspirin 81 mg capsule 81 mg PO DAILY HEART HEALTH 01/18/24 06/27/24 History bumetanide 2 mg tablet 2 mg PO DAILY EDEMA 01/18/24 06/27/24 History lisinopril 2.5 mg tablet 1.25 mg PO DAILY HTN 01/18/24 06/27/24 History trazodone 100 mg tablet 200 mg PO QHS SLEEP 01/18/24 06/27/24 History isosorbide mononitrate 30 mg 30 mg PO DAILY 02/01/24 06/27/24 History tablet,extended release 24 hr oxycodone 5 mg tablet 2.5 - 5 mg (0.5 - 1 x 5 mg) PO Q6H 02/01/24 06/27/24 Rx PRN pain 7 days #28 tabs amoxicillin 875 mg-potassium 1 tab PO BID 04/13/24 06/27/24 History clavulanate 125 mg tablet atorvastatin 80 mg tablet 80 mg PO QDAY 04/13/24 06/27/24 History multivitamin with minerals 1 tab PO DAILY 04/13/24 06/27/24 History (Hair,Skin and Nails tablet) [facility] Medical History Contact with or exposure to viral disease Wears dentures Bipolar disorder Arthritis High cholesterol Restless leg syndrome Migraines GERD (gastroesophageal reflux disease) Former smoker Edema Coronary artery disease Cardiology follow-up encounter History of echocardiogram History of stress test Heart disease Hypertension Surgical History History of coronary artery bypass graft x 3 History of bunionectomy History of cardiac catheterization History of total replacement of left shoulder joint History of total left hip arthroplasty History of total right hip arthroplasty History of total left knee replacement History of total right knee replacement History of lumbosacral spine surgery ( 04/2023) Social History Smoking Status: Former smoker alcohol intake: never HPI LUMBAR SPINE Chief Complaint: lumbar spine Details: This documentation accurately reflects the service provided and the decisions made by me, Dr. Joe Garcia MD 06/27/24 1343. Part of today???s visit was documented by [ ], acting as scribe. GRICELDA NORMAN is a 63 year old F here today for follow up on lumbar spine pain that began 3 weeks ago. Denies any injury or aggravating event. She states the pain was mild at first and she thought she pulled a muscle but the pain has been increasing. She rates her pain 10/10 today. She states it is a constant sore pain in the surgical spot on the left side and goes up. She is also noted swelling on the left side of her back. She states she is having difficulty picking up her legs to walk. She is also experiencing swelling in her BLE. She continues to take the Amoxicillin BID. Ortho Exam General General: Yes no acute distress Neurologic: Yes alert and Yes oriented x3 Spine SPINE TESTING CERVICAL THORACIC LUMBAR Musculoskeletal Strength 0=absent - 5=normal Details: Examination the back shows incision well-healed. No redness or eat noted. Pain along the L back incisions. Edema is noted in the BLE. Neurologic evaluation of lower extremity shows 5 x 5 power normal shows normal sensations in all dermatomes. Patient is tearful due to the pain today in the clinic. Ambulates without any ambulatory aid with a cautious gait. Coding Level of Care Code Off vis,est,level 4 Diagnoses Osteomyelitis of lumbar spine M46.26 Status post hardware removal Z98.890 Time Spent (min) 35 Assessment and Plan Assessment and Plan (1) Osteomyelitis of lumbar spine: Status: Acute (2) Status post hardware removal: Status: Acute Orders: Orders L/S Spine Min 4 Views Today M54.50 - Low back pain, unspecified CBC W/Diff, Automated Today M46.26 - Osteomyelitis of vertebra, lumbar region Erythrocyte Sed Rate Today M46.26 - Osteomyelitis of vertebra, lumbar region CRP Today M46.26 - Osteomyelitis of vertebra, lumbar region Plan Obtained and re (more content not included)... Normal XR ANKLE RIGHT 2 VIEWSon XR ANKLE RIGHT 2 VIEWS Interpreted By: Jordyn Vargas, STUDY: Right ankle, two views. INDICATION: Signs/Symptoms:rt ankle pain. COMPARISON: None. ACCESSION NUMBER(S): [id number] ORDERING CLINICIAN: MARIETTA JOHNSON FINDINGS: No acute fracture or malalignment. The ankle mortise is normally aligned. Mild degenerative changes are noted of the talonavicular joint with joint space loss and osteophytes. Nonspecific soft tissue prominence in the anterior aspect of the tibiotalar joint. IMPRESSION: Mild talonavicular joint osteoarthrosis. Nonspecific soft tissue prominence in the anterior aspect of the tibiotalar joint which may represent ganglion cyst versus tendinosis. Correlate with physical examination. MACRO: None. Signed by: Jordyn Vargas 04/02/2024 6:58 PM Dictation workstation: [id number] [facility] BASIC METABOLIC PANELon 05-0 Anion gap [Moles/Vol] 15 mmol/L Normal 10-20 [facility] Comment on above: Order Comment: [facility] has implemented the eGFR calculation approach that does not have a coefficient for race that conforms to the NKF-ASN Task Force Recommendations. Performed By: #### 4 6124 #### [facility] [address] [place], [place] [address] Crow York M.D. [id number] Calcium [Mass/Vol] 9.3 mg/dL Normal 8.4-10.2 [facility] Comment on above: Order Comment: [facility] has implemented the eGFR calculation approach that does not have a coefficient for race that conforms to the NKF-ASN Task Force Recommendations. Performed By: #### 4 6124 #### LAB [address] [place], [place] [address] Crow York M.D. [id number] Chloride [Moles/Vol] 104 mmol/L Normal 98-108 [facility] Comment on above: Order Comment: [facility] [employer] has implemented the eGFR calculation approach that does not have a coefficient for race that conforms to the NKF-ASN Task Force Recommendations. Performed By: #### 4 6124 #### LAB [address] [place], [place] [address] Crow York M.D. [id number] Creatinine [Mass/Vol] 0.81 mg/dL Normal 0.60-1.10 [facility] Comment on above: Order Comment: [facility] [employer] has implemented the eGFR calculation approach that does not have a coefficient for race that conforms to the NKF-ASN Task Force Recommendations. Performed By: #### 4 6124 #### LAB [address] [place] [id number] Crow York M.D. [id number] EGFR 81 mL/min/1.73 m2 Normal >=60 [facility] Comment on above: Order Comment: [facility] [employer] has implemented the eGFR calculation approach that does not have a coefficient for race that conforms to the NKF-ASN Task Force Recommendations. Result Comment: Dora mated GFR was calculated using the 2020 CKD-EPI creatinine equation. Performed By: #### 4 6121 #### LAB [address] [place], [place] [address] Crow York M.D. [id number] Glucose [Mass/Vol] 133 mg/dL High 65-99 [facility] Comment on above: Order Comment: [facility] has implemented the eGFR calculation approach that does not have a coefficient for race that conforms to the NKF-ASN Task Force Recommendations. Performed By: #### 4 6183 #### LAB [address] [place] [address] Crow York M.D. [id number] HCO3 (Bld) [Moles/Vol] 26 mmol/L Normal 21-32 [facility] Comment on above: Order Comment: [facility] has implemented the eGFR calculation approach that does not have a coefficient for race that conforms to the NKF-ASN Task Force Recommendations. Performed By: #### 4 6124 #### LAB [address] [place] [address] Crow York M.D. [id number] Potassium [Moles/Vol] 4.1 mmol/L Normal 3.5-5.1 [facility] Comment on above: Order Comment: [facility] has implemented the eGFR calculation approach that does not have a coefficient for race that conforms to the NKF-ASN Task Force Recommendations. Performed By: #### 4 6124 #### LAB [address] [place] [address] Crow York M.D. [id number] Sodium [Moles/Vol] 141 mmol/L Normal 135-145 [facility] Comment on above: Order Comment: [facility] has implemented the eGFR calculation approach that does not have a coefficient for race that conforms to the NKF-ASN Task Force Recommendations. Performed By: #### 4 6124 #### LAB [address] [place] [address] Crow York M.D. [id number] Urea nitrogen [Mass/Vol] 9 mg/dL Normal 8-25 [facility] Comment on above: Order Comment: [facility] has implemented the eGFR calculation approach that does not have a coefficient for race that conforms to the NKF-ASN Task Force Recommendations. Performed By: #### 4 6124 #### LAB [address] [place] [address] Crow York M.D. [id number] Urea nitrogen/Creatinine [Mass ratio] 11.1 mg/mg Normal 10.0-20.0 [facility] Comment on above: Order Comment: [facility] has implemented the eGFR calculation approach that does not have a coefficient for race that conforms to the NKF-ASN Task Force Recommendations. Performed By: #### 4 6124 #### LAB [address] [place] [address] Crow York M.D. [id number] CBC WITH AUTO DIFFERENTIALon 03-19-2024 AUTO NRBC 0.0 % [facility] Comment on above: Performed By: #### L [id number] #### [facility] [address] [place] [address] Crow York M.D. [id number] AUTO NRBC ABS COUNT 0.00 K/mcL Normal 0.00-0.00 [facility] [place] Comment on above: Performed By: #### L [id number] #### LAB [address] [place] [address] Crow York M.D. [id number] BASOPHILS ABSOLUTE COUNT 0.03 K/mcL Normal 0.00-0.30 [facility] Comment on above: Performed By: #### L [id number] #### LAB [address] [place] [address] Crow York M.D. [id number] Basophils/100 WBC (Bld) 0.7 % [facility] Comment on above: Performed By: #### L [id number] #### LAB [address] [place] [address] Crow York M.D. [id number] Eosinophils (Bld) [#/Vol] 0.08 10*3/uL Normal 0.00-0.50 [facility] Comment on above: Performed By: #### L [id number] #### LAB [address] [place] [address] Crow York M.D. [id number] Eosinophils/100 WBC (Bld) 1.9 % [facility] Comment on above: Performed By: #### L [id number] #### LAB [address] [place] [address] Crow York M.D. [id number] Erythrocyte distribution width (RBC) [Ratio] 14.6 % Normal 11.6-14.8 [facility] Comment on above: Performed By: #### L [id number] #### LAB [address] [place] [address] Crow York M.D. [id number] Hematocrit (Bld) [Volume fraction] 41.6 % Normal 36.0-46.0 [facility] Comment on above: Performed By: #### L [id number] #### LAB [address] [place] [address] Crow York M.D. [id number] Hemoglobin (Bld) [Mass/Vol] 13.4 g/dL Normal 12.0-16.0 [facility] Comment on above: Performed By: #### L [id number] #### LAB [address] [place] [address] Crow York M.D. [id number] IG ABSOLUTE 0.01 K/mcL Normal 0.00-0.30 [facility] Comment on above: Performed By: #### L [id number] #### LAB [address] [place] [address] Crow York M.D. [id number] IG PERCENT 0.20 % Normal [facility] Comment on above: Result Comment: The IG parameter is the percentage of metamyelocytes, myelocytes and promyelocytes. An immature granulocyte count (IG) of 1% or more suggests the possibility of infection, an IG count of 3% is very likely related to an infection. Performed By: #### L [id number] #### LAB [address] [place] [address] Crow York M.D. [id number] Lymphocytes (Bld) [#/Vol] 1.25 10*3/uL Normal 0.90-4.00 [facility] Comment on above: Performed By: #### L [id number] #### LAB [address] [place] [address] Crow York M.D. [id number] Lymphocytes/100 WBC (Bld) 29.5 % Normal [facility] Comment on above: Performed By: #### L [id number] #### LAB [address] [place] [address] Crow York M.D. [id number] MCH (RBC) [Entitic mass] 28.9 pg Normal 26.0-34.0 [facility] Comment on above: Performed By: #### L [id number] #### LAB [address] [place] [address] Crow York M.D. [id number] MCV (RBC) [Entitic vol] 89.7 fL Normal 80.0-100.0 [facility] Comment on above: Performed By: #### L [id number] #### LAB [address] [place] [address] Crow York M.D. [id number] MEAN CORPUSCULAR HEMOGLOBIN CONC 32.2 g/dL Normal 31.0-37.0 [facility] Comment on above: Performed By: #### L [id number] #### LAB [address] [place] [address] Crow York M.D. [id number] Monocytes (Bld) [#/Vol] 0.43 10*3/uL Normal 0.30-0.90 [facility] Comment on above: Performed By: #### L [id number] #### LAB [address] [place] [address] Crow York M.D. [id number] Monocytes/100 WBC (Bld) 10.1 % Normal [facility] Comment on above: Performed By: #### L [id number] #### LAB [address] [place] [address] Crow York M.D. [id number] NEUTROPHILS ABSOLUTE COUNT 2.44 K/mcL Normal 1.70-7.00 [facility] Comment on above: Performed By: #### L [id number] #### LAB [address] [place] [address] Crow York M.D. [id number] Neutrophils/100 WBC (Bld) 57.6 % Normal [facility] Comment on above: Performed By: #### L [id number] #### LAB [address] [place] [address] Crow York M.D. [id number] Platelet mean volume (Bld) [Entitic vol] 12.3 fL Normal 9.4-12.4 [facility] Comment on above: Performed By: #### L [id number] #### LAB [address] [place] [address] Crow York M.D. [id number] Platelets (Bld) [#/Vol] 185 10*3/uL Normal 150-400 [facility] Comment on above: Performed By: #### L [id number] #### LAB [address] [place] [address] Crow York M.D. [id number] RBC (Bld) [#/Vol] 4.64 10*6/uL Normal 4.00-5.20 [facility] [place] Comment on above: Performed By: #### L [id number] #### [facility] [address] [place] [address] Crow York M.D. [id number] WBC (Bld) [#/Vol] 4.24 10*3/uL Low 4.50-11.00 [facility] [place] Comment on above: Performed By: #### L [id number] #### [facility] [address] [place] [address] Crow York M.D. [id number] SEDIMENTATION RATEon 024 SEDIMENTATION RATE, ERYTHROCYTE 15 mm/hr Normal 0-30 [facility] Comment on above: Performed By: #### 4 [id number] #### [facility] [address] [place] [address] Crow York M.D. [id number] BASIC METABOLIC PANELon 04- Anion gap [Moles/Vol] 15 mmol/L Normal 10-20 [facility] Comment on above: Order Comment: [facility] Laboratory Services has implemented the eGFR calculation approach that does not have a coefficient for race that conforms to the NKF-ASN Task Force Recommendations. Performed By: #### 4 [id number] #### LAB [address] [id number] Crow York M.D. [id number] Calcium [Mass/Vol] 9.1 mg/dL Normal 8.4-10.2 [facility] Comment on above: Order Comment: [facility] Laboratory Services has implemented the eGFR calculation approach that does not have a coefficient for race that conforms to the NKF-ASN Task Force Recommendations. Performed By: #### 4 6124 #### LAB [address] [address] Crow York M.D. [id number] Chloride [Moles/Vol] 103 mmol/L Normal 98-108 [facility] Comment on above: Order Comment: [facility] Laboratory [employer] has implemented the eGFR calculation approach that does not have a coefficient for race that conforms to the NKF-ASN Task Force Recommendations. Performed By: #### 4 6124 #### LAB [address] [address] Crow York M.D. [id number] Creatinine [Mass/Vol] 0.72 mg/dL Normal 0.60-1.10 [facility] Comment on above: Order Comment: [facility] Laboratory [employer] has implemented the eGFR calculation approach that does not have a coefficient for race that conforms to the NKF-ASN Task Force Recommendations. Performed By: #### 4 6124 #### LAB [address] [address] Crow York M.D. [id number] EGFR 94 mL/min/1.73 m2 Normal >=60 [facility] Comment on above: Order Comment: [facility] Laboratory Services has implemented the eGFR calculation approach that does not have a coefficient for race that conforms to the NKF-ASN Task Force Recommendations. Result Comment: Dora mated GFR was calculated using the 2020 CKD-EPI creatinine equation. Performed By: #### 4 6124 #### LAB [address] [address] Crow York M.D. [id number] Glucose [Mass/Vol] 90 mg/dL Normal 65-99 [facility] Comment on above: Order Comment: [facility] Laboratory Services has implemented the eGFR calculation approach that does not have a coefficient for race that conforms to the NKF-ASN Task Force Recommendations. Performed By: #### 4 6124 #### LAB [address] [address] Crow York M.D. [id number] HCO3 (Bld) [Moles/Vol] 27 mmol/L Normal 21-32 [facility] Comment on above: Order Comment: [facility] Laboratory [employer] has implemented the eGFR calculation approach that does not have a coefficient for race that conforms to the NKF-ASN Task Force Recommendations. Performed By: #### 4 6124 #### LAB [address] [address] Crow York M.D. [id number] Potassium [Moles/Vol] 3.8 mmol/L Normal 3.5-5.1 [facility] Comment on above: Order Comment: [facility] [employer] has implemented the eGFR calculation approach that does not have a coefficient for race that conforms to the NKF-ASN Task Force Recommendations. Performed By: #### 4 6124 #### LAB [address] [address] Crow York M.D. [id number] Sodium [Moles/Vol] 141 mmol/L Normal 135-145 [facility] Comment on above: Order Comment: [facility] [employer] has implemented the eGFR calculation approach that does not have a coefficient for race that conforms to the NKF-ASN Task Force Recommendations. Performed By: #### 4 6124 #### LAB [address] [address] Crow York M.D. [id number] Urea nitrogen [Mass/Vol] 7 mg/dL Low 8-25 [facility] Comment on above: Order Comment: [facility] [employer] has implemented the eGFR calculation approach that does not have a coefficient for race that conforms to the NKF-ASN Task Force Recommendations. Performed By: #### 4 6124 #### LAB [address] [address] Crow York M.D. [id number] Urea nitrogen/Creatinine [Mass ratio] 9.7 mg/mg Low 10.0-20.0 [facility] Comment on above: Order Comment: [facility] Laboratory Services has implemented the eGFR calculation approach that does not have a coefficient for race that conforms to the NKF-ASN Task Force Recommendations. Performed By: #### 4 6124 #### LAB [address] [address] Crow York M.D. [id number] CBC WITH AUTO DIFFERENTIALon 03-12-2024 AUTO NRBC 0.0 % [facility] Comment on above: Performed By: #### L [id number] #### LAB [address] [address] Crow York M.D. [id number] AUTO NRBC ABS COUNT 0.00 K/mcL Normal 0.00-0.00 [facility] [place] Comment on above: Performed By: #### L [id number] #### LAB [address] [address] Crow York M.D. [id number] BASOPHILS ABSOLUTE COUNT 0.04 K/mcL Normal 0.00-0.30 [facility] Comment on above: Performed By: #### L [id number] #### LAB [address] [address] Crow York M.D. [id number] Basophils/100 WBC (Bld) 0.9 % [facility] Comment on above: Performed By: #### L [id number] #### LAB [address] [place] [address] Crow York M.D. [id number] Eosinophils (Bld) [#/Vol] 0.19 10*3/uL Normal 0.00-0.50 [facility] Comment on above: Performed By: #### L [id number] #### LAB [address] [place] [address] Crow York M.D. [id number] Eosinophils/100 WBC (Bld) 4.5 % Normal [facility] Comment on above: Performed By: #### L [id number] #### LAB [address] [address] Crow York M.D. [id number] Erythrocyte distribution width (RBC) [Ratio] 14.2 % Normal 11.6-14.8 [facility] Comment on above: Performed By: #### L [id number] #### LAB [address] [address] Crow York M.D. [id number] Hematocrit (Bld) [Volume fraction] 39.9 % Normal 36.0-46.0 [facility] Comment on above: Performed By: #### L [id number] #### LAB [address] [address] Crow York M.D. [id number] Hemoglobin (Bld) [Mass/Vol] 13.1 g/dL Normal 12.0-16.0 [facility] Comment on above: Performed By: #### L [id number] #### LAB [address] [address] Crow York M.D. [id number] IG ABSOLUTE 0.01 K/mcL Normal 0.00-0.30 [facility] Comment on above: Performed By: #### L [id number] #### LAB [address] [place] [address] Crow York M.D. [id number] IG PERCENT 0.20 % Normal [facility] Comment on above: Result Comment: The IG parameter is the percentage of metamyelocytes, myelocytes and promyelocytes. An immature granulocyte count (IG) of 1% or more suggests the possibility of infection, an IG count of 3% is very likely related to an infection. Performed By: #### L [id number] #### LAB [address] [place] [address] Crow York M.D. [id number] Lymphocytes (Bld) [#/Vol] 1.41 10*3/uL Normal 0.90-4.00 [facility] Comment on above: Performed By: #### L [id number] #### LAB [address] [address] Crow York M.D. [id number] Lymphocytes/100 WBC (Bld) 33.3 % Normal [facility] Comment on above: Performed By: #### L [id number] #### LAB [address] [address] Crow York M.D. [id number] MCH (RBC) [Entitic mass] 29.7 pg Normal 26.0-34.0 [facility] Comment on above: Performed By: #### L [id number] #### LAB [address] [address] Crow York M.D. [id number] MCV (RBC) [Entitic vol] 90.5 fL Normal 80.0-100.0 [facility] Comment on above: Performed By: #### L [id number] #### LAB [address] [address] Crow York M.D. [id number] MEAN CORPUSCULAR HEMOGLOBIN CONC 32.8 g/dL Normal 31.0-37.0 [facility] Comment on above: Performed By: #### L [id number] #### LAB [address] [address] Crow York M.D. [id number] Monocytes (Bld) [#/Vol] 0.58 10*3/uL Normal 0.30-0.90 [facility] Comment on above: Performed By: #### L [id number] #### LAB [address] [place] [address] Crow York M.D. [id number] Monocytes/100 WBC (Bld) 13.7 % Normal [facility] Comment on above: Performed By: #### L [id number] #### LAB [address] [place] [address] Crow York M.D. [id number] NEUTROPHILS ABSOLUTE COUNT 2.01 K/mcL Normal 1.70-7.00 [facility] Comment on above: Performed By: #### L [id number] #### LAB [address] [address] Crow York M.D. [id number] Neutrophils/100 WBC (Bld) 47.4 % Normal [facility] Comment on above: Performed By: #### L [id number] #### LAB [address] [address] Crow York M.D. [id number] Platelet mean volume (Bld) [Entitic vol] 13.1 fL High 9.4-12.4 [facility] Comment on above: Performed By: #### L [id number] #### LAB [address] [address] Crow York M.D. [id number] Platelets (Bld) [#/Vol] 158 10*3/uL Normal 150-400 [facility] Comment on above: Performed By: #### L [id number] #### MH LAB [address] [address] Crow York M.D. [id number] RBC (Bld) [#/Vol] 4.41 10*6/uL Normal 4.00-5.20 [facility] [place] Comment on above: Performed By: #### L [id number] #### MH LAB [address] [address] Crow York M.D. [id number] WBC (Bld) [#/Vol] 4.24 10*3/uL Low 4.50-11.00 [facility] Comment on above: Performed By: #### L [id number] #### LAB [address] [address] Crow York M.D. [id number] SEDIMENTATION RATEon 04-29-2 024 SEDIMENTATION RATE, ERYTHROCYTE 16 mm/hr Normal 0-30 [facility] Comment on above: Performed By: #### 4 [id number] #### LAB [address] [place], [place] [address] Crow York M.D. [id number] Clostridioides difficile nuc leic acid assay by PCROrdered By: Tiny Swanson on 03-08-2024 C. difficile DNA FITO+probe Ql (Unsp spec) Basophil percentageOrdered B y: Joe Garcia on 03-05-2024 Creatinine [Mass/Vol] 1.0 mg/dL 0.55-1.02 [facility] Laboratory - Chemistry and C hemistry - challengeOrdered By: Joe Garcia on 03-05-2024 GFR/1.73 sq M.predicted among non-blacks MDRD (S/P/Bld) [Vol rate/Area] 57.0000 mL/min/{1.73_m2} >60 Anaerobic cultureOrdered By: Joe Garcia on 02-01-2024 Bacteria identified Anaer cx Nom (Unsp spec) No growth in 5 days. Gram stain for investigation of transfusion reactionOrdered By: Joe Garcia on 02-01-2024 Microscopic observation Gram stain Nom (Unsp spec) Routine wound cultureOrdered By: Joe Garcia on 02-01-2024 Bacteria identified Cx Nom (Wound) No growth aerobically. Thin prep Papanicolaou smear with manual screeningOrdered By: Joe Garcia on 02-01-2024 Thin prep Papanicolaou smear with manual screening 93 mg/dL 74-106 Comment on above: MANAGEMENT OF PATIEN T CARE PER NURSING PROTOCOL No Panel Informationon 01-23 POC SARS CoV-2 Antigen Negative Basophil percentageOrdered B y: Joe Garcia on 01-19-2024 Chloride [Moles/Vol] 106 mmol/L 98-107 [facility] Glucose [Mass/Vol] 82 mg/dL 74-106 [facility] Potassium [Moles/Vol] 3.9 mmol/L 3.5-5.1 [facility] Sodium [Moles/Vol] 140 mmol/L 136-145 [facility] HIV 1 and HIV-2 antibody ass ay with HIV-1 p24 antigen detectionOrdered By: Joe Garcia on 01-19-2024 HIV 1+2 Ab+HIV1 p24 Ag IA Ql Non-Reactive Nonreactive Laboratory - Chemistry and C hemistry - challengeOrdered By: Joe Garcia on 01-19-2024 CO2 [Moles/Vol] 26.0 mmol/L 21.0-32.0 Urea nitrogen/Creatinine [Mass ratio] 8.2 mg/mg 10-20 Laboratory - Chemistry and C hemistry - challengeOrdered By: Jesus Jacobs on 01-19-2024 Magnesium [Mass/Vol] 2.4 mg/dL 1.6-2.6 [facility] No Panel InformationOrdered By: Joe Garcia on 01-19-2024 Estimated GFR (MDRD) Amer 74 mL/min >60 Comment on above: GFR Calc Estimated GFR (MDRD) Non-Af Amer 61 mL/min >60 Comment on above: Non- GFR Calc Hepatitis A Antibody Total Negative Negative Comment on above: Comment: The HAV tot al antibody assay detects both IgG andIgM but does not differentiate between them. A negativeresult suggests susceptibility to infection. A positiveresult could be due to vaccination, previously resolvedinfection or active infection. Testing for HAV IgM shouldbe performed if active HAV infection is suspected. [facility]corpoffers profiles that will automatically reflex positive HAVtotal antibody results to IgM (e.g., panel #[id number] HAVAntibody w/ Rfx).Performed at: [place] [id number] Director: Rhett Karimi PhD, Phone: [phone] Hepatitis C Antibody Non-Reactive Nonreactive [facility] Comment on above: Non Reactive: < 0.8 Equivocal: >/= 0.8 to < 1.0 Reactive: >/= 1.0The CDC requires that a reactive/equivocal HCV antibody result be sent out for confirmation. HCV Quant by PCR testing. Serum hepatitis B virus surf brett antibody IgG detectionOrdered By: Joe Garcia on 01-19-2024 HBV surface IgG Ql (S) Non-Reactive Comment on above: Non Reactive: Incons istent with immunity less than <10 mIU/mL Reactive: Consistent with immunity greater than or equal to 10 mIU/mL Serum or plasma calcium adam urement (mass/volume)Ordered By: Joe Garcia on 01-19-2024 Calcium [Mass/Vol] 9.2 mg/dL 8.5-10.1 [facility] Serum or plasma creatinine m easurement (mass/volume)Ordered By: Joe Garcia on 01-19-2024 Creatinine [Mass/Vol] 0.97 mg/dL 0.55-1.02 [facility] Comment on above: The validity of the calculated GFR & GFRAA in patients over 70 years has not been determined. Clinical correlation is essential. Serum or plasma urea nitroge n measurement (mass/volume)Ordered By: Joemarcus Garcia on 01-19-2024 Urea nitrogen [Mass/Vol] 8 mg/dL 7-18 Thin prep Papanicolaou smear with manual screeningOrdered By: Joemarcus Garcia on 01-19-2024 Thin prep Papanicolaou smear with manual screening 8 5-15 Basophil percentageOrdered B y: Joe Garcia on 01-05-2024 Creatinine [Mass/Vol] 1.1 mg/dL 0.55-1.02 [facility] Laboratory - Chemistry and C hemistry - challengeOrdered By: Joe Garcia on 01-05-2024 GFR/1.73 sq M.predicted among non-blacks MDRD (S/P/Bld) [Vol rate/Area] 52.0000 mL/min/{1.73_m2} >60 Absolute lymphocyte countOrd ered By: Joe Garcia on 12-23-2023 Lymphocytes Auto (Unsp spec) [#/Vol] 2.08 10*3/uL 0.83-4.51 Automated lymphocyte count a s percentage of total leukocytesOrdered By: Joe Garcia on 12-23-2023 Lymphocytes/100 WBC Auto (Unsp spec) 27.4 % 19-41 Basophil percentageOrdered B y: Joe Garcia on 12-23-2023 Basophils/100 WBC (Bld) 0.4 % 0-1 Eosinophils/100 WBC (Bld) 2.6 % 0-5 Hemoglobin (Bld) [Mass/Vol] 13.3 g/dL 12.0-15.0 Monocytes/100 WBC (Bld) 10.3 % 0-10 Neutrophils (Bld) [#/Vol] 4.5 10*3/uL 2.0-7.7 Neutrophils/100 WBC (Bld) 58.9 % 47-70 WBC (Bld) [#/Vol] 7.6 10*3/uL 4.4-11.0 [facility] Determination of erythrocyte mean corpuscular volume (MCV)Ordered By: Joe Garcia on 12-23-2023 MCV (RBC) [Entitic vol] 91.7 fL 81-99 Erythrocyte distribution wid th ratioOrdered By: [facility] Jose on 12-23-2023 Erythrocyte distribution width (RBC) [Ratio] 14.6 % 11.6-14.6 Erythrocyte distribution wid th standard deviationOrdered By: [facility] Jose on 12-23-2023 Erythrocyte distribution width (RBC) [Entitic vol] 48.6 fL 35.1-43.9 Erythrocyte sedimentation ra teOrdered By: [facility] Jose on 12-23-2023 ESR (Bld) [Velocity] 7 mm/h 0-30 [facility] Hematocrit Auto (Bld) [Volum e fraction]Ordered By: [facility] Jose on 12-23-2023 Hematocrit (Bld) [Volume fraction] 42.9 % 37-47 Immature granulocytes/100 WB C Auto (Bld)Ordered By: Joemarcus Garcia on 12-23-2023 Immature granulocytes/100 WBC (Bld) 0.400 % 0.0-0.9 Comment on above: IG% - Immature Granu locytes (promyelocytes, myelocytes and metamyelocytes) > 1% indicates that a LEFT SHIFT is Present. Laboratory - Hematology and Cell countsOrdered By: Joe Garcia on 12-23-2023 MCH (RBC) [Entitic mass] 28.4 pg 27.0-32.0 MCHC (RBC) [Mass/Vol] 31.0 g/dL 32-36 [facility] Nucleated RBC/100 WBC (Bld) [Ratio] 0 % 0-5 Platelet mean volume (Bld) [Entitic vol] 12.7 fL 6.2-12.0 Platelets (Bld) [#/Vol] 209 10*3/uL 150-450 No Panel InformationOrdered By: Joe Garcia on 12-23-2023 C-Reactive Protein Extended Range 5.66 mg/L 0.0-3.0 Comment on above: C-Reactive Protein ( CRP) provides useful information for thediagnosis, therapy and monitoring of inflammatory processesand associated diseases. For the evaluation of Relative Riskfor Cardiovascular Disease, a High Sensitivity CRP (HSCRP)should be ordered. RBC Auto (Bld) [#/Vol]Ordere d By: Joe Garcia on 12-23-2023 RBC (Bld) [#/Vol] 4.68 10*6/uL 4.2-5.4 [facility] C-REACTIVE PROTEIN (CRP)on 1 12-25-2022 CRP [Mass/Vol] <0.9 mg/dL [facility] ESR Westergren method (Bld) [Velocity]on 10-24-2023 ESR (Bld) [Velocity] 8 mm/h 0 - 20 mm/hr [facility] No Panel Informationon 10-24 [facility] XR LUMBAR 4V AP/LAT/ FLEX/EX Ton 08-29-2023 XR LUMBAR 4V AP/LAT/ FLEX/EXT * * *Final Report* * * DATE OF EXAM: Aug 29 2023 1:02PM MDX 5231 - XR LUMBAR 4V AP/LAT/ FLEX/EXT / PROCEDURE REASON: Z98.1-S/P lumbar fusion * * * * Physician Interpretation * * * * Lumbar spine with lateral flexion and extension views History: S/P lumbar fusion Prior study: Outside radiograph 05/24/2023 Findings: AP and lateral neutral, flexion, and extension views were performed. Stable mid and anterior compression deformity L3 vertebral body. The other vertebral bodies are intact. There is about 2 mm anterolisthesis at L3-4. Alignment otherwise anatomic. Pedicle screws with longitudinal stabilization rods L1-L4. Stable lower lumbar disc space narrowing. No evidence of instability. Counting reference: Lumbosacral junction. For the purposes of this report, L4-5 is considered the level of the iliac crest and there are 5 lumbar-type vertebrae. Anatomic Variants: None. IMPRESSION: No evidence of instability. No acute finding. Soaker: [employer] Transcribe Date/Time: Aug 31 2023 5:00P Dictated by : SHEFALI TINOCO MD This examination was interpreted and the report reviewed and electronically signed by: SHEFALI TINOCO MD on Aug 31 2023 5:05PM EST [id number] [facility] BASIC METABOLIC PANELon 08-0 Anion gap [Moles/Vol] 12 mmol/L Normal 10 - 20 [facility] Comment on above: Performed By: #### B MP #### [address] [address] Calcium [Mass/Vol] 9.0 mg/dL Normal 8.6 - 10.3 [facility] Comment on above: Performed By: #### B MP #### [address] [address] Chloride [Moles/Vol] 104 mmol/L Normal 98 - 107 [facility] Comment on above: Performed By: #### B MP #### [address] [address] Creatinine [Mass/Vol] 0.78 mg/dL Normal 0.50 - 1.05 [facility] Comment on above: Performed By: #### B MP #### [address] [address] GFR/1.73 sq M.predicted among non-blacks MDRD (S/P/Bld) [Vol rate/Area] 85 mL/min/{1.73_m2} Normal >90 [facility] Comment on above: Result Comment: CALC ULATIONS OF ESTIMATED GFR ARE PERFORMED USING THE 2020 CKD-EPI STUDY REFIT EQUATION WITHOUT THE RACE VARIABLE FOR THE IDMS-TRACEABLE CREATININE METHODS. https://jasn.asnjournals.org/content///ASN.694390 0515 Performed By: #### B MP #### [address] [address] Glucose [Mass/Vol] 81 mg/dL Normal 74 - 99 [facility] Comment on above: Performed By: #### B MP #### [address] [address] HCO3 (Bld) [Moles/Vol] 26 mmol/L Normal 21 - 32 [facility] Comment on above: Performed By: #### B MP #### [address] [address] Potassium [Moles/Vol] 3.6 mmol/L Normal 3.5 - 5.3 [facility] Comment on above: Performed By: #### B MP #### [address] [address] Sodium [Moles/Vol] 138 mmol/L Normal 136 - 145 [facility] Comment on above: Performed By: #### B MP #### [address] [address] Urea nitrogen [Mass/Vol] 9 mg/dL Normal 6 - 23 [facility] Comment on above: Performed By: #### B MP #### [address] [address] C-REACTIVE PROTEINon 023 C-REACTIVE PROTEIN 0.54 mg/dL Normal [facility] Comment on above: Result Comment: REF VALUE < 1.00 Performed By: #### C RP #### [address] [address] CBC AND DIFFERENTIALon 06-22 % AUTOMATED IMMATURE GRAN 0.3 % Normal 0.0 - 0.9 [facility] Comment on above: Result Comment: Chitra ture Granulocyte Count (IG) includes promyelocytes, myelocytes and metamyelocytes but does not include bands. Percent differential counts (%) should be interpreted in the context of the absolute cell counts (cells/L). Performed By: #### C BCDF ####[address] [address] Basophils (Bld) [#/Vol] 0.02 10*3/uL Normal 0.00 - 0.10 [facility] Comment on above: Performed By: #### C BCDF ####[address] [address] Basophils/100 WBC (Bld) 0.3 % Normal 0.0 - 2.0 [facility] Comment on above: Performed By: #### C BCDF ####[address] [address] Eosinophils (Bld) [#/Vol] 0.27 10*3/uL Normal 0.00 - 0.70 [facility] Comment on above: Performed By: #### C BCDF ####[address] [address] Eosinophils/100 WBC (Bld) 4.2 % Normal 0.0 - 6.0 [facility] Comment on above: Performed By: #### C BCDF ####[address] [address] Erythrocyte distribution width (RBC) [Ratio] 13.3 % Normal 11.5 - 14.5 [facility] Comment on above: Performed By: #### C BCDF ####[address] [address] Hematocrit (Bld) [Volume fraction] 38.7 % Normal 36.0 - 46.0 [facility] Comment on above: Performed By: #### C BCDF ####[address] [address] Hemoglobin (Bld) [Mass/Vol] 12.1 g/dL Normal 12.0 - 16.0 [facility] Comment on above: Performed By: #### C BCDF ####[address] [address] Lymphocytes (Bld) [#/Vol] 1.98 10*3/uL Normal 1.20 - 4.80 [facility] Comment on above: Performed By: #### C BCDF ####[address] [address] Lymphocytes/100 WBC (Bld) 30.8 % Normal 13.0 - 44.0 [facility] Comment on above: Performed By: #### C BCDF ####[address] [address] MCHC (RBC) [Mass/Vol] 31.3 g/dL Low 32.0 - 36.0 [facility] Comment on above: Performed By: #### C BCDF ####[address] [address] MCV (RBC) [Entitic vol] 90 fL Normal 80 - 100 [facility] Comment on above: Performed By: #### C BCDF ####[address] [address] Monocytes (Bld) [#/Vol] 0.42 10*3/uL Normal 0.10 - 1.00 [facility] Comment on above: Performed By: #### C BCDF ####[address] [address] Monocytes/100 WBC (Bld) 6.5 % Normal 2.0 - 10.0 [facility] Comment on above: Performed By: #### C BCDF ####[address] [address] Neutrophils (Bld) [#/Vol] 3.71 10*3/uL Normal 1.20 - 7.70 [facility] Comment on above: Result Comment: Perc ent differential counts (%) should be interpreted in the context of the absolute cell counts (cells/L). Performed By: #### C BCDF ####[address] [address] Neutrophils/100 WBC (Bld) 57.9 % Normal 40.0 - 80.0 [facility] Comment on above: Performed By: #### C BCDF ####[address] [address] Platelets (Bld) [#/Vol] 177 10*3/uL Normal 150 - 450 [facility] Comment on above: Performed By: #### C BCDF ####[address] [address] RBC 4.32 x10E12/L Normal 4.00 - 5.20 [facility] Comment on above: Performed By: #### C BCDF ####[address] [address] WBC (Bld) [#/Vol] 6.4 10*3/uL Normal 4.4 - 11.3 [facility] Comment on above: Performed By: #### C BCDF ####[address] [place] [address] LACTATEon 06-22-2023 Lactate [Moles/Vol] 0.7 mmol/L Normal 0.4 - 2.0 [facility] Comment on above: Result Comment: Krupa puncture immediately after or during the administration of Metamizole may lead to falsely low results. Testing should be performed immediately prior to Metamizole dosing. Performed By: #### L ACT #### [id number] [place] [address] NR MR L-SPINE WO/W CONTRASTo n 06-22-2023 NR MR L-SPINE WO/W CONTRAST Patient Name: GRICELDA NORMAN STUDY: MR T-SPINE WO/W; MR L-SPINE WO/W CONTRAST; 06/22/2023 5:15 pm; 06/22/2023 5:05 pm INDICATION: recent spine surgery, worsening pain. ; recent spine surgery, worsening pain. No known MRI contrast allergy . COMPARISON: None. ACCESSION NUMBER(S): [id number]; [id number] ORDERING CLINICIAN: CLAUS MOREIRA TECHNIQUE: Sagittal T1, T2, STIR and axial T2 and T1 weighted MR images of the thoracic and lumbar spine were obtained. 17 mL Dotarem injected intravenously. Sagittal and axial T1 postcontrast images were performed. FINDINGS: Thoracic: Counting was performed from the C2 vertebral body on the youth associate image. There is exaggerated thoracic kyphosis centered at T7-T8. Alignment is maintained. There is mild nonacute anterior wedging of the T7 vertebral body. There is a proximally 50% loss of vertebral body height anteriorly and no osseous retropulsion into the spinal canal. Vertebral body heights are otherwise maintained. There is desiccated disc signal throughout the thoracic spine with mild degenerative endplate changes and disc height loss. The thoracic cord is unremarkable. The conus terminates at T12 and is unremarkable. Evaluation of the individual levels demonstrates no significant spinal canal or neural foraminal stenosis. Prevertebral soft tissues are not thickened. Lumbar spine: For counting purposes the last lumbarized vertebral body is labeled L5. Interval postsurgical changes of posterolateral fusion at L1, L2, L3 and L4. There is a fluid collection posterior to the paraspinal muscles on the left at the L3 level measuring 3.1 x 3.2 x 3.9 cm (transverse by cc) nonspecific edema within the subcutaneous soft tissues and paraspinal muscles is likely post surgical. Alignment is maintained. Redemonstrated is a compression fracture of the L3 vertebral body with greater than 75% loss of vertebral body height centrally and mild osseous retropulsion into the spinal canal measuring approximally 3-4 mm. There appears to be similar loss of vertebral body height and osseous retropulsion compared to the prior exam. There is new hyperintense STIR signal within the superior endplate of L1 which may represent an acute superior endplate fracture, however there is metallic susceptibility artifact which somewhat limits evaluation. There is no loss of vertebral body height or osseous retropulsion into the spinal canal. Vertebral body heights are otherwise maintained. There is desiccated disc signal throughout the lumbar spine. Moderate to severe disc height loss at L4-L5 and L5-S1. The conus terminates at T12 and is unremarkable. Prevertebral soft tissues are not thickened. Evaluation by level: T12-L1: Disc bulge. No significant spinal canal or neural foraminal stenosis. L1-L2: Disc bulge. No significant spinal canal stenosis. Mild bilateral neural foraminal stenosis T12-L1: Osseous retropulsion and degenerative changes resulting in moderate spinal canal stenosis. Mild neural foraminal stenosis. L3-L4: Disc bulge and facet arthrosis. No significant spinal canal or neural foraminal stenosis L4-L5: Disc bulge and facet arthrosis. No significant spinal canal stenosis. Wgxw-no-yozpizit bilateral neural foraminal stenosis L5-S1: No significant spinal canal stenosis. Ksmz-hu-unbmbhnr neural foraminal narrowing, left greater than right. No abnormal enhancement of the distal cord or nerve roots. IMPRESSION: Thoracic spine: Nonacute anterior wedge deformity of the T7 vertebral body. No significant spinal canal or neural foraminal stenosis. Lumbar spine: Postsurgical changes of posterolateral fusion at L1 [...] limited secondary to adjacent metallic susceptibility artifact. Degenerative changes, as detailed above without severe spinal canal stenosis. Neural foraminal narrowing most pronounced at L4-L5 and L5-S1 with wgfp-po-hgjteeik bilateral neural foraminal stenosis. MACRO: None Electronically signed by: NELLY HUANG MD [facility] NR MR T-SPINE WO/Won 023 NR MR T-SPINE WO/W Patient Name: GRICELDA NORMAN STUDY: MR T-SPINE WO/W; MR L-SPINE WO/W CONTRAST; 06/22/2023 5:15 pm; 06/22/2023 5:05 pm INDICATION: recent spine surgery, worsening pain. ; recent spine surgery, worsening pain. No known MRI contrast allergy . COMPARISON: None. ACCESSION NUMBER(S): [id number]; [id number] ORDERING CLINICIAN: CLAUS MOREIRA TECHNIQUE: Sagittal T1, T2, STIR and axial T2 and T1 weighted MR images of the thoracic and lumbar spine were obtained. 17 mL Dotarem injected intravenously. Sagittal and axial T1 postcontrast images were performed. FINDINGS: Thoracic: Counting was performed from the C2 vertebral body on the youth associate image. There is exaggerated thoracic kyphosis centered at T7-T8. Alignment is maintained. There is mild nonacute anterior wedging of the T7 vertebral body. There is a proximally 50% loss of vertebral body height anteriorly and no osseous retropulsion into the spinal canal. Vertebral body heights are otherwise maintained. There is desiccated disc signal throughout the thoracic spine with mild degenerative endplate changes and disc height loss. The thoracic cord is unremarkable. The conus terminates at T12 and is unremarkable. Evaluation of the individual levels demonstrates no significant spinal canal or neural foraminal stenosis. Prevertebral soft tissues are not thickened. Lumbar spine: For counting purposes the last lumbarized vertebral body is labeled L5. Interval postsurgical changes of posterolateral fusion at L1, L2, L3 and L4. There is a fluid collection posterior to the paraspinal muscles on the left at the L3 level measuring 3.1 x 3.2 x 3.9 cm (transverse by cc) nonspecific edema within the subcutaneous soft tissues and paraspinal muscles is likely post surgical. Alignment is maintained. Redemonstrated is a compression fracture of the L3 vertebral body with greater than 75% loss of vertebral body height centrally and mild osseous retropulsion into the spinal canal measuring approximally 3-4 mm. There appears to be similar loss of vertebral body height and osseous retropulsion compared to the prior exam. There is new hyperintense STIR signal within the superior endplate of L1 which may represent an acute superior endplate fracture, however there is metallic susceptibility artifact which somewhat limits evaluation. There is no loss of vertebral body height or osseous retropulsion into the spinal canal. Vertebral body heights are otherwise maintained. There is desiccated disc signal throughout the lumbar spine. Moderate to severe disc height loss at L4-L5 and L5-S1. The conus terminates at T12 and is unremarkable. Prevertebral soft tissues are not thickened. Evaluation by level: T12-L1: Disc bulge. No significant spinal canal or neural foraminal stenosis. L1-L2: Disc bulge. No significant spinal canal stenosis. Mild bilateral neural foraminal stenosis T12-L1: Osseous retropulsion and degenerative changes resulting in moderate spinal canal stenosis. Mild neural foraminal stenosis. L3-L4: Disc bulge and facet arthrosis. No significant spinal canal or neural foraminal stenosis L4-L5: Disc bulge and facet arthrosis. No significant spinal canal stenosis. Awqc-hn-cqykqand bilateral neural foraminal stenosis L5-S1: No significant spinal canal stenosis. Mcqm-lm-adjhigsm neural foraminal narrowing, left greater than right. No abnormal enhancement of the distal cord or nerve roots. IMPRESSION: Thoracic spine: Nonacute anterior wedge deformity of the T7 vertebral body. No significant spinal canal or neural foraminal stenosis. Lumbar spine: Postsurgical changes of posterolateral fusion at L1 [...] limited secondary to adjacent metallic susceptibility artifact. Degenerative changes, as detailed above without severe spinal canal stenosis. Neural foraminal narrowing most pronounced at L4-L5 and L5-S1 with unqg-kf-rbrovqik bilateral neural foraminal stenosis. MACRO: None Electronically signed by: NELLY HUANG MD [facility] Provider Note - ED v3on 08-0 Provider Note - ED v3 Provider Note: Results/Vital Signs: Pediatric Clinical Scoring (STEVEN) is no recent STEVEN charted on this account Chart Review: ED NOTES ED NOTES: ====HPI==== Patient is a 62-year-old female who presents to the emergency department for chief complaint of back pain status post back surgery on May 06. She states that she had lumbar back surgery on May 06 at the [facility] by Dr. Fitzgerald. She states that she is having increasing pain although has had since her surgery. She states that the pain is actually worsening. She states that the pain is worse more so on her left side. She denies any bowel or bladder incontinence or retention. No saddle anesthesia. No weakness. PMHX: CABG, DE, HTN, High Cholesterol, Bipolar Social HX: Former smoker TOBACCO Occasionally ETOH Denies DRUGS ====Review of Systems==== 10 point system review is negative except for those specifically mentioned in history of present illness ====Physical Exam==== Constitutional/General : Alert and oriented x3, well appearing, nontoxic, and in NAD. Head: Normocephalic and atraumatic. Eyes: EOMI, conjunctive normal, sclera nonicteric, subconjunctival layer is pink. Neck: Supple, full ROM, no stridor, no crepitus, no meningeal signs. Trachea at midline. Respiratory: Lungs clear to auscultation bilaterally, no wheezes, rales, or rhonchi, not in respiratory distress. Cardiovascular: Regular rate, regular rhythm, no murmurs, gallops, or rubs, 2+ distal pulses. Chest: normal chest wall movement GI: Abdomen soft, nontender, nondistended, no organomegaly, no palpable masses, no rebound, guarding, or rigidity. Musculoskeletal: Moves all extremities x4, warm and well perfused Back: Exam limited as patient refused any palpation of back. Surgical incisions are noted to be well healing. No erythema or obvious edemia Integument: Skin warm and dry, no rashes. Neurologic: GCS 15, no focal deficits, symmetric strength 5/5 in the upper and lower extremities bilaterally. Psychiatric: Normal affect. ====ED Course and Medical Decision Making==== See MDM section for review of findings & plan of care. Portions of this note were dictated by speech recognition. An attempt at proof reading was made to minimize errors. Minor errors in nurses assistant may be present. Please call if questions.. HISTORY OF PRESENTING ILLNESS GRICELDA is a 62 year old Female and was seen by me at 22-Jun-2023 12:50 for a chief complaint of other (had appt with yesterday and my doctor sent me here for an MRI pt was here last night but was busy could not stay, pt had surgery May 06 at [facility], has had ongoing pain since, right side feels better but left side still painful. denies bowel or bladder c/o) . Triage Information: Most recent Vital Sign Value Date Temp (F): 98 06-22-2023 13:03 Temp (C): 36.6 06-22-2023 13:03 Heart Rate (beats/min): 58 06-22-2023 13:03 Respirations (breaths/min): 18 06-22-2023 13:03 SpO2 (%): 98 06-22-2023 13:03 BP Systolic (mm Hg): 109 06-22-2023 13:03 BP Diastolic (mm Hg): 70 06-22-2023 13:03 PAST MEDICAL HISTORY ALLERGIES/INTOLERANCES : Allergy Allergen: contrast (specific type unknown) Type: Contrast Reaction: Rash Itching Other Allergen: penicillin Type: Drug Reaction: Rash HEALTH HISTORY: No documented data. OUTPATIENT MEDICATIONS: Home Medications Review Status for Reconciliation: Complete Med Status: Patient Currently Takes Medications Drug Name: ALPRAZolam 0.5 mg oral tablet Instructions: 1 tab(s) orally once a day (at bedtime) Drug Name: lisinopril 2.5 mg oral tablet Instructions: 0.5 tab(s) orally once a day Drug Name: pantoprazole 40 mg oral delayed release tablet Instructions: 1 tab(s) orally once a day Drug Name: escitalopram 10 mg oral tablet Instructions: 1 tab(s) orally once a day Drug Name: atorvastatin 10 mg oral tablet Instructions: 1 tab(s) orally once a day Drug Name: lamoTRIgine 200 mg oral tablet, extended release Instructions: 1 tab(s) orally once a day Drug Name: traZODone 100 mg oral tablet Instructions: 2 tab(s) orally once a day (at bedtime) Drug Name: bumetanide 1 mg oral tablet Instructions: 1 tab(s) orally once a day Drug Name: isosorbide mononitrate 30 mg oral tablet, extended release Instructions: 1 tab(s) orally once a day (in the morning) Drug Name: aspirin 81 mg oral tablet Instructions: 1 tab(s) orally once a day Drug Name: Vitamin B12 Instructions: 1 tab(s) orally once a day Drug Name: Percocet 10/325 oral tablet Instructions: 1 tab(s) orally every 6 hours, As Needed SIGNIFICANT EVENTS: Past Medical History Description:CABG Description:DE Description:HTN Description:high cholesterol Description:bipolar CRITICAL CARE RESULTS: Recent Lab Results: I have reviewed these laboratory results: Complete Blood Count + D (more content not included)... Normal [facility] Risk Screen - Adult Emergenc yon 06-22-2023 Risk Screen - Adult Emergency Preferred Language: Preferred Language: Preferred Language for Discussing Health Care (patient/designee)Brianne mcginnis Patient Preferred Pharmacy: Patient Preferred Pharmacy Statement: I have reviewed and updated the patient's preferred pharmacy selection for today's visit. Advanced Directives: Advance Directive/DNRyes Advance Directive typeLiving Will, Durable Power of Casting Carrier for Healthcare Family Violence Adult: Abuse Screen: Are you or have you been threatened or abused physically, emotionally, or sexually by anyoneno Learning Assessment (Patient): Learning Assessment (Patient): Patient is Able to be Assessed for Learningyes Factors Influencing Readiness to Learnacuteness of illness Factors that Impact Ability to Learnnone Devices/Methods Used to Communicatenone Learning Preferencesaudio Cultural Considerationsnone Developmental Considerationsnone Jehovah'S Witness Considerationsnone Learning Assessment (Other Learner): Learning Assessment (Other Learner): Other learner availableno Pressure Injury/TB/Substance: Pressure Injury: Do you have a coughno Smoking Statusformer smoker Alcohol Useoccasionally Drug Usedenies Admission Risk Screen: Significant IndicatorsComplete CAGE: CAGE: Is this an injured patient at a Trauma Center ([facility]/[place]/[facility]/[place]): no Electronic Signatures: Karen Hidalgo (RN) (Signed 22-Jun-2023 13:10) Authored: Preferred Language, Patient Preferred Pharmacy, Advanced Directives, Family Violence Adult, Learning Assessment (Patient), Learning Assessment (Other Learner), Pressure Injury/TB/Substance, Pressure Injury, CAGE Last Updated: 22-Jun-2023 13:10 by Karen Hidalgo (ALICIA) Normal [facility] SEDIMENTATION RATE, ERYTHROC YTEon 06-22-2023 SEDIMENTATION RATE, ERYTHROCYTE 17 mm/h Normal 0 - 30 [facility] Comment on above: Performed By: #### E SRWS ####[facility] [place] [address] Triage - EDon 06-22-2023 Triage - ED Chart Review: ARRIVAL INFORMATION Mode of Arrival: private vehicle CHIEF COMPLAINT GRICELDA NORMAN is a Female patient with a chief complaint of other (had appt with yesterday and my doctor sent me here for an MRI pt was here last night but was busy could not stay, pt had surgery May 06 at [facility], has had ongoing pain since, right side feels better but left side still painful. denies bowel or bladder c/o). Triage Date/Time: 22-Jun-2023 13:03 MARIZOL: 3V Pain Rating (0-10): 9 = Severe Pain location: back Vital Signs: Temperature: 98.0F ( 36.6C) Blood Pressure: 109/70 Mean: Heart Rate: 58 Respiratory Rate: 18 Pulse Oximetry: 98% Height: 5 feet 3.00 inches. 160.0 CM Weight: 186.2 pounds. Calculated 84.5 kg. Calculated BMI (kg/m2): 33.007 Calculated BSA (m2) 1.94 [place] Coma Scale: Best Eye Response: (E4) spontaneous Best Motor Response: (M6) obeys commands Best Verbal Response: (V5) oriented [place] Score: 15 Allergies: yes Patient has homicidal thoughts: no Last Known Well: unknown Risk Screens Suicide Risk Screen In the Past Month: Have you wished you were or wished you could go to sleep and not wake up no In the Past Month: Have you had any actual thoughts of killing yourself no In Your Lifetime: Have you ever done anything, started to do anything, or prepared to do anything to end your life no Winter Fall Scale Screening Has the patient fallen before (or is the patient in the ED as a result of a fall) has had a fall Does the patient have an impaired gait does not have impaired gait Is the patient cognitively impaired not cognitively impaired Winter Fall Scale History of falling (immediate or previous) yes (25) Secondary Diagnosis no (0) Intravenous Therapy/ Heparin/Saline Lock no (0) Gait/Transferring normal/bedrest/wheelch air (0) Ambulatory Aids none/bedrest/nurse assist (0) Mental Status oriented to own ability (0) Winter Fall Risk Score: 25 Interventions: Winter Fall Interventions: MODERATE INTERVENTIONS: *Low Interventions Plus: * falls risk band/sticker applied to patient, *yellow non-skid footwear, *instruct to call for assistance before getting out of bed, *bed/chair/bedside commode/toilet alarms, *sensory devices/ambulatory aides available and in reach, *medications reviewed for potential side effects and care planning. TRAVEL HISTORY Travel History Coronavirus Screening: no exposure or symptoms Travel Exposure History: NO travel to International locations in the past 30 days PAIN Pain Scale Used: SHARONDA Pain Rating (0-10): 9 = Severe Past Medical History: Past Medical History Reviewedyes Electronic Signatures: Karen Hidalgo (RN) (Signed 22-Jun-2023 13:08) Entered: Risk Screens, Pain, Travel History, Chart Review, Scores, Past Medical History Authored: Quick Triage, Risk Screens, Pain, Travel History, Chart Review, Scores, Past Medical History Last Updated: 22-Jun-2023 13:08 by Karen Hidalgo (RN) [facility] ED Nursing Noteon 05-17-2023 ED Nursing Note RN went over dischar ge instructions with the patient, Patient was able to reinstruct RN with discharge care. Patient denies any questions. Patient is A&Ox3 at time of discharge. Laura Mosley RN 05/16/23 [id number] [facility] Basic metabolic 1998 panelon 05-16-2023 Anion gap [Moles/Vol] 8 mmol/L 3 - 13 mmol/L [facility] Calcium [Mass/Vol] 8.8 mg/dL 8.4 - 10. 4 mg/dL [facility] Chloride [Moles/Vol] 101 mmol/L 98 - 10 7 mmol/L [facility] CO2 [Moles/Vol] 28 mmol/L 22 - 30 mmol/L [facility] Creatinine [Mass/Vol] 0.88 mg/dL 0.52 - 1.04 mg/dL [facility] GFR/1.73 sq M.predicted MDRD (S/P/Bld) [Vol rate/Area] 73.9 mL/min/{1.73_m2} - PINF [facility] Comment on above: Calculation based on the Chronic Kidney Disease Epidemiology Collaboration (CKD-EPI) equation refit without adjustment for race Glucose [Mass/Vol] 97 mg/dL 70 - 100 mg/dL [facility] Potassium [Moles/Vol] 3.3 mmol/L Low 3.5 - 5.1 mmol/L [facility] Sodium [Moles/Vol] 137 mmol/L 135 - 145 mmol/L [facility] Urea nitrogen [Mass/Vol] 12 mg/dL 7 - 17 mg/dL [facility] CBC W Auto Differential pane l (Bld)Ordered By: Marisela Holm on 05-16-2023 Basophils (Bld) [#/Vol] 0.0 10*3/uL 0.0 - 0.2 10*3/uL [facility] Basophils/100 WBC (Bld) 0.5 % 0.0 - 2.0 % [facility] Eosinophils (Bld) [#/Vol] 0.2 10*3/uL 0.0 - 0.5 10*3/uL [facility] Eosinophils/100 WBC (Bld) 2.9 % 1.0 - 6.0 % [facility] Erythrocyte distribution width (RBC) [Ratio] 14.7 % High 11.5 - 14.5 % [facility] Hematocrit (Bld) [Volume fraction] 33.0 % Low 35.0 - 47.0 % [facility] Hemoglobin (Bld) [Mass/Vol] 11.0 g/dL Low 11.7 - 16.0 g/dL [facility] Interpretation and review of laboratory results Abnormal [facility] Lymphocytes (Bld) [#/Vol] 1.6 10*3/uL 1.0 - 4.3 10*3/uL [facility] Lymphocytes/100 WBC (Bld) 23.1 % 20.0 - 40.0 % [facility] [employer] MCH (RBC) [Entitic mass] 30.0 pg 26.0 - 34.0 pg [facility] MCHC (RBC) [Mass/Vol] 33.3 % 32.0 - 36.0 % [facility] MCV (RBC) [Entitic vol] 89.9 fL 80.0 - 98.0 fL [facility] Monocytes (Bld) [#/Vol] 0.6 10*3/uL 0.0 - 0.8 10*3/uL [facility] Monocytes/100 WBC (Bld) 8.6 % 2.0 - 10.0 % [facility] Neutrophils (Bld) [#/Vol] 4.6 10*3/uL 1.8 - 7.0 10*3/uL [facility] Neutrophils/100 WBC (Bld) 64.9 % 40.0 - 80.0 % [facility] [employer] Nucleated RBC/100 WBC (Bld) [Ratio] 0.0 % [facility] Platelet mean volume (Bld) [Entitic vol] 9.3 fL 7.4 - 12.4 fL [facility] Platelets (Bld) [#/Vol] 278 10*3/uL 140 - 440 10*3/uL [facility] RBC (Bld) [#/Vol] 3.67 10*6/uL Low 3.8 - 5.20 10*6/uL [facility] WBC (Bld) [#/Vol] 7.1 10*3/uL 3.6 - 10.7 10*3/uL [facility] CT LUMBAR SPINE WO IV CONTRA STon 05-16-2023 CT LUMBAR SPINE WO IV CONTRAST Patient Name: GRICELDA NORMAN : 1960 Exam Date/Time: 05/16/2023 19:30 Procedure: CT LUMBAR SPINE WO IV CONTRAST Ordering Provider: ALCANTARA KASSIDY Reason For Exam: recent spine sugery on 05/06/2023, increasing pain in back CT LUMBAR SPINE WITHOUT CONTRAST CLINICAL INDICATION: recent spine sugery on 05/06/2023, increasing pain in back TECHNIQUE: Noncontrast CT scan of the lumbar spine. Multiplanar reformations. Dose reduction was employed with automated exposure control. COMPARISON: None FINDINGS: No focal alignment abnormality. Burst fracture at L3 with moderate loss of height centrally. This appears acute or subacute. Posterior fusion L1-L4. No complicating process seen. Severe disc space narrowing L4-L5 and L5-S1. L1-L2: Facet arthritic changes. Minor disc bulge. No foraminal or central stenosis. L2-L3: Facet arthritic changes. No spinal or foraminal stenosis. No focal disc protrusion. Ligamentum flavum thickening. Extensive artifact from hardware. L3-L4: Moderate facet arthrosis and ligamentum flavum thickening. Minor disc bulge. No foraminal or central stenosis. Extensive artifact from hardware. L4-L5: Moderate facet arthrosis. Disc space narrowing and endplate spurring. Moderate foraminal narrowing bilaterally. No spinal stenosis. L5-S1: Facet arthritic changes and endplate spurring. Moderate foraminal narrowing bilaterally. No spinal stenosis. IMPRESSION: 1. Posterolateral fusion L1-L4. Burst fracture at L3 appears acute or subacute. There are no prior studies to assess for change. Report Dictated on Electronically Signed By: Bubba Byrd Electronically Signed Date/Time: 05/16/2023 7:48 PM EDT [facility] CT Lumbar spine WO contrasto n 05-16-2023 1. Posterolateral fusion L1-L4. Burst fracture at L3 appears acute or subacute. There are no prior studies to assess for change. Report Dictated on Electronically Signed By: Bubba Byrd Electronically Signed Date/Time: 05/16/2023 7:48 PM EDT [facility] 1960 [id number] Exam Date/Time: 05/16/2023 19:30 Procedure: CT LUMBAR SPINE WO IV CONTRAST Ordering Provider: ALCANTARA KASSIDY Reason For Exam: recent spine sugery on 05/06/2023, increasing pain in back CT LUMBAR SPINE WITHOUT CONTRAST CLINICAL INDICATION: recent spine sugery on 05/06/2023, increasing pain in back TECHNIQUE: Noncontrast CT scan of the lumbar spine. Multiplanar reformations. Dose reduction was employed with automated exposure control. COMPARISON: None FINDINGS: No focal alignment abnormality. Burst fracture at L3 with moderate loss of height centrally. This appears acute or subacute. Posterior fusion L1-L4. No complicating process seen. Severe disc space narrowing L4-L5 and L5-S1. L1-L2: Facet arthritic changes. Minor disc bulge. No foraminal or central stenosis. L2-L3: Facet arthritic changes. No spinal or foraminal stenosis. No focal disc protrusion. Ligamentum flavum thickening. Extensive artifact from hardware. L3-L4: Moderate facet arthrosis and ligamentum flavum thickening. Minor disc bulge. No foraminal or central stenosis. Extensive artifact from hardware. L4-L5: Moderate facet arthrosis. Disc space narrowing and endplate spurring. Moderate foraminal narrowing bilaterally. No spinal stenosis. L5-S1: Facet arthritic changes and endplate spurring. Moderate foraminal narrowing bilaterally. No spinal stenosis. [facility] Bubba Byrd MD - 05/16/2023 Patient Name: GRICELDA NORMAN : 1960 Exam Date/Time: 05/16/2023 19:30 Procedure: CT LUMBAR SPINE WO IV CONTRAST Ordering Provider: ALCANTARA KASSIDY Reason For Exam: recent spine sugery on 05/06/2023, increasing pain in back CT LUMBAR SPINE WITHOUT CONTRAST CLINICAL INDICATION: recent spine sugery on 05/06/2023, increasing pain in back TECHNIQUE: Noncontrast CT scan of the lumbar spine. Multiplanar reformations. Dose reduction was employed with automated exposure control. COMPARISON: None FINDINGS: No focal alignment abnormality. Burst fracture at L3 with moderate loss of height centrally. This appears acute or subacute. Posterior fusion L1-L4. No complicating process seen. Severe disc space narrowing L4-L5 and L5-S1. L1-L2: Facet arthritic changes. Minor disc bulge. No foraminal or central stenosis. L2-L3: Facet arthritic changes. No spinal or foraminal stenosis. No focal disc protrusion. Ligamentum flavum thickening. Extensive artifact from hardware. L3-L4: Moderate facet arthrosis and ligamentum flavum thickening. Minor disc bulge. No foraminal or central stenosis. Extensive artifact from hardware. L4-L5: Moderate facet arthrosis. Disc space narrowing and endplate spurring. Moderate foraminal narrowing bilaterally. No spinal stenosis. L5-S1: Facet arthritic changes and endplate spurring. Moderate foraminal narrowing bilaterally. No spinal stenosis. IMPRESSION: 1. Posterolateral fusion L1-L4. Burst fracture at L3 appears acute or subacute. There are no prior studies to assess for change. Report Dictated on Electronically Signed By: Bubba Byrd Electronically Signed Date/Time: 05/16/2023 7:48 PM EDT [facility] Study observation (narrative) [facility] CT Lumbar spine WO contrastO rdered By: Bubba Byrd on 05-16-2023 [facility] Work Phone: Consulton 05-16-2023 Consult Ortho Spine Consult Patient: Gricelda Norman Date of : 1960 Acct: [id number] PCP: No primary care provider on file. Date of Admission: 05/16/2023 Date of Service: Pt seen/examined on 05/16/2023 Chief Complaint: back pain History Of Present Illness: 62 y.o. female who presents with worsening back pain after a PLF on 05/06/23. She has had pain since surgery but today notes a slight increase in her pain. Also endorsing weakness and concerns for falling although she has not fallen since surgery. Denies any consitutional symptoms. Denies any saddle anesthesia or bowel and bladder incontinence. Denies any focal weakness. Does have a chronic history of paresthesias in her toes since bilateral 1st MTP fusions done many years ago. She notes falling in early April and sustaining fractures of her ribs as well as her lumbar spine leading to her PLF of L1-4 on 05/06/[address] Ed Fitzgerald. She has been taking percocet, flexeril and gabapentin at home for pain relief but her pain has not been adequately controlled. Patient ambulation status: mild difficulty and ambulates with: cane secondary to pain. Antiplatelets/Anticoag ulation includes: ASA. Past Medical History: History reviewed. No pertinent past medical history. Past Surgical History: Recent Surgeries in Orthopedic Surgery No cases to display Home Medications: Prior to Admission medications Not on File Current Hospital Medications: Current Facility-Administered Medications: orphenadrine (Norflex) injection 60 mg, 60 mg, IntraMUSCular, Once, Monalisa Burgos PA-C Current Outpatient Medications: calcitonin, salmon, (Miacalcin) 200 UNIT/ACT nasal spray, Administer 1 spray into one nostril daily., Disp: 3.7 mL, Rfl: 0 cyclobenzaprine (Flexeril) 5 MG tablet, Take 1 tablet (5 mg) by mouth 3 times daily for 10 days., Disp: 30 tablet, Rfl: 0 Allergies: Iodinated contrast media and Pcn [penicillins] Social History: Social History Socioeconomic History Marital status: Spouse name: Not on file Number of children: Not on file Years of education: Not on file Highest education level: Not on file Occupational History Not on file Tobacco Use Smoking status: Never Smokeless tobacco: Never Substance and Sexual Activity Alcohol use: Yes Comment: social Drug use: Never Sexual activity: Not on file Other Topics Concern Not on file Social History Narrative Not on file Social Determinants of Health Financial Resource Strain: Not on file Food Insecurity: Not on file Transportation Needs: Not on file Physical Activity: Not on file Stress: Not on file Social Connections: Not on file Intimate Partner Violence: Not on file Housing Stability: Not on file Family History: No family history on file. Further Family History is noncontributory to this injury. REVIEW OF SYSTEMS: Review of Systems - General ROS: negative for - chills, fatigue, fever, malaise or night sweats Psychological ROS: negative Ophthalmic ROS: negative ENT ROS: negative for - headaches or sore throat Hematological and Lymphatic ROS: negative for - bleeding problems or blood clots Respiratory ROS: no cough, shortness of breath, or wheezing Cardiovascular ROS: no chest pain or dyspnea on exertion Gastrointestinal ROS: negative Musculoskeletal ROS: See HPI Neurological ROS: See HPI All other systems reviewed and are negative PHYSICAL EXAM: BP 118/55 Pulse 60 Temp 36.9 ?C (98.5 ?F) (Temporal) Resp 17 SpO2 99% GENERAL APPEARANCE: Awake and oriented x3. No acute distress, except appropriate to injury. MOOD AND AFFECT: Appropriate to situation GAIT AND STATION: Patient is in wheelchair. COORDINATION and BALANCE: Patient is grossly coordinated. Spine Exam: * Exam was limited due to pain: No Direct Spine Inspection: TTP was present in lumbar spine and in paraspinal muscles SA EF WE EE WF GS HI RUE 5 5 5 5 5 5 5 Sensation: Intact C3-T1 with normal sensation in all distributions Radial pulse: Palpable TTP in the following areas: nontender throughout extremity. Nontender throughout remainder of extremity SA EF WE EE WF GS HI LUE 5 5 5 5 5 5 5 Sensation: Intact C3-T1 with normal sensation in all distributions Radial pulse: Palpable TTP in the following areas: nontender throughout extremity. Nontender throughout remainder of extremity HF KE DF EHL PF RLE 5 5 5 Limited by prior fusion 5 Sensation: Abnormal: chronic paresthesias in toes after fusion Pulses: DP Palpable PT Palpable TTP in the following areas: Nontender throughout extremity. Nontender throughout remainder of extremity Pain w Straight leg raise: No HF KE DF EHL PF LLE 5 5 5 Limited by prior fusion 5 Sensation: Abnormal: chronic paresthesias in toes after fusion Pulses: DP Palpable PT Palpable TTP in the following areas: Nontender throughout extremity. Nontender throughout remainder of extremity Pain (more content not included)... Normal [facility] ED Nursing Noteon 05-16-2023 ED Nursing Note Pt given shawn odonnell per her request Liz Powers LPN 05/16/232011 Normal [facility] ED Nursing Note Registration in with pt Liz Powers LPN 05/16/232009 Normal [facility] ED Nursing Note Pt back from CT Liz Powers LPN 05/16/23 193 [facility] ED Nursing Note [facility] EMERGENCY DEPT Quick Cognitive Screen Performed [x] [...] once patient in room Laura Mosley RN 05/16/231808 [facility] ED Provider Noteon ED Provider Note LumbarEMERGENCY DEPARTMENT ENCOUNTER Pt Name: Gricelda Norman Birthdate 1960 Date of evaluation: 05/16/2023 [...] for the entirety of this encounter. HPI Gricelda Norman is a 62 y.o. female who presents to the emergency department complaining of severe low back pain. Patient does note that she had recent surgery on 05/06/[address] Fitzgerald. Patient reports that she has had severe [...] Never SCREENINGS PHYSICAL EXAM ED Triage Vitals [05/16/239] Temp Heart Rate Resp BP 36.9 ?C (98.5 ?F) 60 17 118/55 SpO2 Temp Source Heart [...] change. Report Dictated on Electronically Signed By: Bubba Byrd Electronically Signed Date/Time: 05/16/2023 7:48 PM [...] 1809 BP: 118/55 Pulse: 60 Resp: 17 (more content not included)... Normal [facility] ED Provider Note In the absence of th e provider I prescribed patient Muscle relaxer and intranasal calcitonin per request of orthopedics. Monalisa Burgos PA-C 05/16/23 2139 Normal [facility] ESR (Bld) [Velocity]Ordered By: Stefanie Gómez on 05-16-2023 Interpretation and review of laboratory results Abnormal [facility] - Chemistry and C hemistry - challengeon 05-16-2023 CRP [Mass/Vol] 21.6 mg/L High NINF - 10.0 mg/L [facility] - Hematology and Cell countsOrdered By: Stefnaie Gómez on 05-16-2023 ESR (Bld) [Velocity] 49 mm/h High [facility] No Panel Informationon 05-16 Interpretation and review of laboratory results Abnormal [facility] NR MRI L-SPINE WOon 04-14-20 23 NR MRI L-SPINE WO Patient Name: GRICELDA NORMAN STUDY: MRI L-SPINE WO; 04/14/2023 8:00 pm INDICATION: L3 VERTEBRAL FRACTURE. COMPARISON: None. ACCESSION NUMBER(S): [id number] ORDERING CLINICIAN: JORDYN NOEL TECHNIQUE: The lumbar spine was studied in the sagital, axial and coronal planes utiliing T1 and T2 weighted images. FINDINGS: Loss of height and abnormal signal within the L3 vertebral body consistent with compression fracture. Residual edema suggests acute event. Edema extends posteriorly into the L3 pedicles. Slight flattening of the thecal sac without measurable canal stenosis. The marrow signal and vertebral body height are otherwise normal. The conus and sacrum are normal. Images at each interspace reveal the following: L1/L2 Mild facet hypertrophy without canal or foraminal narrowing L2/L3 Mild bulging disc and facet hypertrophy without canal or foraminal narrowing. There is partial compression fracture with at least 50% central loss of height at L3. Slight retropulsion of the posterior/superior fragment of L3 with flattening of the thecal sac but without measurable central canal stenosis, epidural fluid collection or epidural hemorrhage. Edema extends into the bilateral L3 pedicles and pars interarticularis bilaterally. L3/L4 Mild bulging disc and facet hypertrophy without central canal stenosis. Moderate bilateral foraminal narrowing. L4/L5 Marginal osteophyte formation and bilateral facet hypertrophy without canal stenosis. Moderate/advanced bilateral foraminal narrowing. L5/S1 Mild bulging disc and bilateral facet hypertrophy without canal stenosis. Mild bilateral foraminal narrowing. IMPRESSION: * Likely insufficiency fracture at L3 with edema extending to the posterior elements bilaterally. Flattening of the thecal sac without measurable canal stenosis or compression of the conus. No evidence of epidural fluid collection or hemorrhage * An [facility] alert message was sent to PACS support through the [employer] system at 7:09 am on 04/15/[address]Charles Mike The examination was interpreted [facility] Electronically signed by: JESSICA MIKE MD [facility] BONE DENSITY, DEXA 1 OR MORE SITES: AXIAL SKELETONon 03-18-2023 BONE DENSITY, DEXA 1 OR MORE SITES: AXIAL SKELETON Patient Name: GRICELDA NORMAN STUDY: BONE DENSITY, DEXA 1 OR MORE SITES: AXIAL SKELET03/18/2023 1:25 pm INDICATION: Other specified disorders of bone density and structure, unspecified siteThe patient is a 62 year old female for a screening bone Densitometry (DEXA). COMPARISON: None. ACCESSION NUMBER(S): [id number] ORDERING CLINICIAN: KENNEDY FITZGERALD TECHNIQUE: Bone Densitometry (DEXA) of the lumbar spine and forearm performed. FINDINGS: Name: GRICELDA NORMAN Date:1960 Height:167.6 Gender:F Exam Date:03/18/2023 Weight:81.8 Indications:Other specified disorders of bone density and structure, unspecified site Fractures:Prior hip or vertebral fracture. Treatments:None SPINE L1-L4 Bone Mineral Density: 1.149 g/cm2 T-Score 0.9 Z-Score 2.6 LEFT FOREARM Bone Mineral Density: 0.573 g/cm2 T-Score -1.9 Z-Score -0.4 World Health Organization (WHO) criteria for post-menopausal, Women: Normal: T-score at or above -1 SD Osteopenia: T-score between -1 and -2.5 SD Osteoporosis: T-score at or below -2.5 SD 10-Year Fracture Risk: FRAX N/A IMPRESSION: According to World Health Organization criteria, classification is low bone mass (osteopenia) Followup recommended in two years or sooner as clinically warranted. Electronically signed by: BEATRICE NAZARIO MD [facility] CT [facility]BAR SP[facility] LUMBAR SPINE WITHOUT CONTRAST EXAMINATION: CT LUMBAR SPINE WITHOUT CONTRAST HISTORY: ORDERING SYSTEM PROVIDED HISTORY: Low back pain, trauma, TECHNOLOGIST PROVIDED HISTORY: Injury/Trauma Reason for exam: back pain Encounter Type: Initial Mechanism of injury: fall ORDERING SYSTEM PROVIDED DIAGNOSIS CODES: COMPARISON: None. TECHNIQUE: CT examination of the lumbar spine without IV contrast. Coronal and sagittal reformations were performed. Dose reduction techniques were achieved by using automated exposure control and/or adjustment of mA and/or kV according to patient size and/or use of iterative reconstruction technique. FINDINGS: Acute burst fracture at L3. There is approximately 50% loss of vertebral body height centrally. There are fractures involving the superior and inferior endplates as well as traversing the mid section of the vertebral body. The anterior aspect of L3 is displaced anteriorly by 5 mm. There is retropulsion of the posterior cortex of L3 into the spinal canal by 5 mm. This results in moderate spinal canal stenosis. No epidural hematoma is clearly appreciated. The pedicles of L3 are intact. The facets of L3 as well as transverse processes are intact. No other lumbar spine fracture appreciated. Severe degenerative disc disease at L4-5 and L5-S1. No sacral fracture. Sacroiliac joints are intact. There is some paraspinal soft tissue swelling at the L3 level. No paraspinal hematoma identified. No paraspinal masses. IMPRESSION: 1. Acute burst fracture at L3. There is approximately 50% loss of vertebral body height at this level. There is retropulsion of the posterior aspect of L3 into the canal by 5 mm resulting in moderate spinal canal stenosis. No epidural hematoma appreciated. 2. The posterior elements and pedicles of L3 are intact. Alignment remains normal. 3. No other lumbar spine fracture identified. DMKathleen/mjr Workstation ID: [id number] Dictated by: LOTTIE HOWARD on TueMar 01, 2023 7:42:11 PM EDT Transcribed by: KIRSTIE LUIS on TueMar 01, 2023 7:45:54 PM EDT Finalized by: LOTTIE HOWARD on TueMar 01, 2023 10:50:13 PM EDT [facility] Comment on above: Order Comment: Injur y/Trauma or Illness?:Injury/Trauma How long have you had these symptoms (acute/chronic)?:Acute Reason for exam?:back pain Type of Exam?:Initial Mechanism of injury?:fall XR RIBS LEFT 3+ VIEWS (STAND KLEVER)on 02-23-2023 XR RIBS LEFT 3+ VIEWS (STANDARD) EXAMINATION: XR RIBS RIGHT 3+ VIEWS (STANDARD); XR RIBS LEFT 3+ VIEWS (STANDARD) 02/23/2023 12:12 pm HISTORY: ORDERING SYSTEM PROVIDED HISTORY: Rib pain, TECHNOLOGIST PROVIDED HISTORY: Injury/Trauma Reason for exam: bilateral rib pain Cancer History: u Surgery, RadiationHistory: u Encounter Type: Subsequent/Follow-up Mechanism of injury: Fall ORDERING SYSTEM PROVIDED DIAGNOSIS CODES: R07.81 Rib pain COMPARISON: Chest radiograph 12/14/2021. FINDINGS: Suspected minimally displaced right anterior 6th rib fracture and probable right anterior 8th and 9th rib fractures. Acute mildly displaced left lateral 7th and 8th rib fractures. Old healed right posterolateral 7th rib fracture. Clear lungs. IMPRESSION: Suspected acute right anterior 6, 8th, and 9th rib fractures and left lateral 7th and 8th rib fractures. Workstation ID: [id number] Dictated by: MANA LORENZO on TueFeb 23, 2023 2:30:27 PM EDT Transcribed by: MANA LORENZO on TueFeb 23, 2023 2:30:27 PM EDT Finalized by: MANA LORENZO on TueFeb 23, 2023 2:30:27 PM EDT [facility] Comment on above: Order Comment: Injur y/Trauma or Illness?:Injury/Trauma How long have you had these symptoms (acute/chronic)?:Acute Reason for exam?:bilateral rib pain History of cancer?:u Surgeries, chemotherapy, or radiation?:u Type of Exam?:Subsequent/Follow-up x-rays at [facility] on 02/14/23 Mechanism of injury?:Fall XR RIBS RIGHT 3+ VIEWS (ANDREI BANG)on 02-23-2023 XR RIBS RIGHT 3+ VIEWS (STANDARD) EXAMINATION: XR RIBS RIGHT 3+ VIEWS (STANDARD); XR RIBS LEFT 3+ VIEWS (STANDARD) 02/23/2023 12:12 pm HISTORY: ORDERING SYSTEM PROVIDED HISTORY: Rib pain, TECHNOLOGIST PROVIDED HISTORY: Injury/Trauma Reason for exam: bilateral rib pain Cancer History: u Surgery, RadiationHistory: u Encounter Type: Subsequent/Follow-up Mechanism of injury: Fall ORDERING SYSTEM PROVIDED DIAGNOSIS CODES: R07.81 Rib pain COMPARISON: Chest radiograph 12/14/2021. FINDINGS: Suspected minimally displaced right anterior 6th rib fracture and probable right anterior 8th and 9th rib fractures. Acute mildly displaced left lateral 7th and 8th rib fractures. Old healed right posterolateral 7th rib fracture. Clear lungs. IMPRESSION: Suspected acute right anterior 6, 8th, and 9th rib fractures and left lateral 7th and 8th rib fractures. Workstation ID: [id number] Dictated by: MANA LORENZO on TueFeb 23, 2023 2:30:27 PM EDT Transcribed by: MANA LORENZO on TueFeb 23, 2023 2:30:27 PM EDT Finalized by: MANA LORENZO on TueFeb 23, 2023 2:30:27 PM EDT [facility] Comment on above: Order Comment: Injur y/Trauma or Illness?:Injury/Trauma How long have you had these symptoms (acute/chronic)?:Acute Reason for exam?:bilateral rib pain History of cancer?:u Surgeries, chemotherapy, or radiation?:u Type of Exam?:Subsequent/Follow-up Mechanism of injury?:Fall CT C-SPINE WO CONTRASTon CT C-SPINE WO CONTRAST Patient Name: GRICELDA NORMAN STUDY: CT HEAD WITHOUT CONTRAST TRAUMA PROTOCOL; CT FACIAL BONES; CT CORONAL/SAGITTAL/OBLIQ UE RECON; CT C-SPINE WO CONTRAST; 02/14/2023 8:14 pm; 02/14/2023 8:15 pm INDICATION: fall COMPARISON: None. ACCESSION NUMBER(S): [id number]; [id number]; [id number]; [id number] ORDERING CLINICIAN: JET FITZGERALD TECHNIQUE: Axial noncontrast CT images of head with coronal and sagittal reconstructed images. Axial noncontrast CT images of the cervical spine with coronal and sagittal reconstructed images. CT examination of the face performed. 3D reconstructions performed on a separate workstation FINDINGS: CT HEAD: BRAIN PARENCHYMA: No evidence of acute intraparenchymal hemorrhage or parenchymal evidence of acute large territory ischemic infarct. No mass-effect, midline shift or effacement of cerebral sulci. Jimenez-white matter distinction is preserved. VENTRICLES and EXTRA-AXIAL SPACES: No acute extra-axial or intraventricular hemorrhage. Ventricles and sulci are age-concordant. PARANASAL SINUSES/MASTOIDS: No hemorrhage or air-fluid levels within the visualized paranasal sinuses. The mastoid air cells are well-aerated. CALVARIUM/ORBITS: No skull fracture. The orbits and globes are intact to the extent visualized. EXTRACRANIAL SOFT TISSUES: No discernible abnormality. CT CERVICAL SPINE: PREVERTEBRAL SOFT TISSUES: Within normal limits. CRANIOCERVICAL JUNCTION: Intact. ALIGNMENT: No traumatic malalignment or traumatic facet widening. VERTEBRAE: No acute fracture. Vertebral body heights are maintained. Mild demineralization of the bones SPINAL CANAL/INTERVERTEBRAL DISCS: No high-grade spinal canal stenosis. No significant disc height loss. Minimal degenerative changes NEURAL FORAMINA: No significant neural foraminal stenosis. Multilevel uncovertebral joint and facet arthropathy notably contribute to OTHER: None. CT face: Apparent emphysema seen at the lung apices The patient is edentulous. Soft tissue swelling seen in the soft tissues around the nose. No definite facial bone fracture is seen. IMPRESSION: CT HEAD: No acute intracranial abnormality or calvarial fracture. CT CERVICAL SPINE: No acute fracture or traumatic malalignment of the cervical spine. Demineralization. Mild degenerative changes. No findings of acute facial bone fracture Electronically signed by: BUBBA ANDREA MD [facility] CT FACIAL BONES W/O CONTRAST on 02-14-2023 CT FACIAL BONES W/O CONTRAST Patient Name: GRICELDA NORMAN STUDY: CT HEAD WITHOUT CONTRAST TRAUMA PROTOCOL; CT FACIAL BONES; CT CORONAL/SAGITTAL/OBLIQ UE RECON; CT C-SPINE WO CONTRAST; 02/14/2023 8:14 pm; 02/14/2023 8:15 pm INDICATION: fall COMPARISON: None. ACCESSION NUMBER(S): [id number]; [id number]; [id number]; [id number] ORDERING CLINICIAN: JET FITZGERALD TECHNIQUE: Axial noncontrast CT images of head with coronal and sagittal reconstructed images. Axial noncontrast CT images of the cervical spine with coronal and sagittal reconstructed images. CT examination of the face performed. 3D reconstructions performed on a separate workstation FINDINGS: CT HEAD: BRAIN PARENCHYMA: No evidence of acute intraparenchymal hemorrhage or parenchymal evidence of acute large territory ischemic infarct. No mass-effect, midline shift or effacement of cerebral sulci. Jimenez-white matter distinction is preserved. VENTRICLES and EXTRA-AXIAL SPACES: No acute extra-axial or intraventricular hemorrhage. Ventricles and sulci are age-concordant. PARANASAL SINUSES/MASTOIDS: No hemorrhage or air-fluid levels within the visualized paranasal sinuses. The mastoid air cells are well-aerated. CALVARIUM/ORBITS: No skull fracture. The orbits and globes are intact to the extent visualized. EXTRACRANIAL SOFT TISSUES: No discernible abnormality. CT CERVICAL SPINE: PREVERTEBRAL SOFT TISSUES: Within normal limits. CRANIOCERVICAL JUNCTION: Intact. ALIGNMENT: No traumatic malalignment or traumatic facet widening. VERTEBRAE: No acute fracture. Vertebral body heights are maintained. Mild demineralization of the bones SPINAL CANAL/INTERVERTEBRAL DISCS: No high-grade spinal canal stenosis. No significant disc height loss. Minimal degenerative changes NEURAL FORAMINA: No significant neural foraminal stenosis. Multilevel uncovertebral joint and facet arthropathy notably contribute to OTHER: None. CT face: Apparent emphysema seen at the lung apices The patient is edentulous. Soft tissue swelling seen in the soft tissues around the nose. No definite facial bone fracture is seen. IMPRESSION: CT HEAD: No acute intracranial abnormality or calvarial fracture. CT CERVICAL SPINE: No acute fracture or traumatic malalignment of the cervical spine. Demineralization. Mild degenerative changes. No findings of acute facial bone fracture Electronically signed by: BUBBA ANDREA MD [facility] CT HEAD WITHOUT CONTRAST TRA [facility] PROTOCOLon 02-14-2023 CT HEAD WITHOUT CONTRAST TRAUMA PROTOCOL Patient Name: GRICELDA NORMAN STUDY: CT HEAD WITHOUT CONTRAST TRAUMA PROTOCOL; CT FACIAL BONES; CT CORONAL/SAGITTAL/OBLIQ UE RECON; CT C-SPINE WO CONTRAST; 02/14/2023 8:14 pm; 02/14/2023 8:15 pm INDICATION: fall COMPARISON: None. ACCESSION NUMBER(S): [id number]; [id number]; [id number]; [id number] ORDERING CLINICIAN: JET FITZGERALD TECHNIQUE: Axial noncontrast CT images of head with coronal and sagittal reconstructed images. Axial noncontrast CT images of the cervical spine with coronal and sagittal reconstructed images. CT examination of the face performed. 3D reconstructions performed on a separate workstation FINDINGS: CT HEAD: BRAIN PARENCHYMA: No evidence of acute intraparenchymal hemorrhage or parenchymal evidence of acute large territory ischemic infarct. No mass-effect, midline shift or effacement of cerebral sulci. Jimenez-white matter distinction is preserved. VENTRICLES and EXTRA-AXIAL SPACES: No acute extra-axial or intraventricular hemorrhage. Ventricles and sulci are age-concordant. PARANASAL SINUSES/MASTOIDS: No hemorrhage or air-fluid levels within the visualized paranasal sinuses. The mastoid air cells are well-aerated. CALVARIUM/ORBITS: No skull fracture. The orbits and globes are intact to the extent visualized. EXTRACRANIAL SOFT TISSUES: No discernible abnormality. CT CERVICAL SPINE: PREVERTEBRAL SOFT TISSUES: Within normal limits. CRANIOCERVICAL JUNCTION: Intact. ALIGNMENT: No traumatic malalignment or traumatic facet widening. VERTEBRAE: No acute fracture. Vertebral body heights are maintained. Mild demineralization of the bones SPINAL CANAL/INTERVERTEBRAL DISCS: No high-grade spinal canal stenosis. No significant disc height loss. Minimal degenerative changes NEURAL FORAMINA: No significant neural foraminal stenosis. Multilevel uncovertebral joint and facet arthropathy notably contribute to OTHER: None. CT face: Apparent emphysema seen at the lung apices The patient is edentulous. Soft tissue swelling seen in the soft tissues around the nose. No definite facial bone fracture is seen. IMPRESSION: CT HEAD: No acute intracranial abnormality or calvarial fracture. CT CERVICAL SPINE: No acute fracture or traumatic malalignment of the cervical spine. Demineralization. Mild degenerative changes. No findings of acute facial bone fracture Electronically signed by: BUBBA ANDREA MD [facility] CT IMAGE RECONSTRUCTION 3D V OLUME and MIPon 02-14-2023 CT IMAGE RECONSTRUCTION 3D VOLUME and MIP Patient Name: GRICELDA NORMAN STUDY: CT HEAD WITHOUT CONTRAST TRAUMA PROTOCOL; CT FACIAL BONES; CT CORONAL/SAGITTAL/OBLIQ UE RECON; CT C-SPINE WO CONTRAST; 02/14/2023 8:14 pm; 02/14/2023 8:15 pm INDICATION: fall COMPARISON: None. ACCESSION NUMBER(S): [id number]; [id number]; [id number]; [id number] ORDERING CLINICIAN: JET FITZGERALD TECHNIQUE: Axial noncontrast CT images of head with coronal and sagittal reconstructed images. Axial noncontrast CT images of the cervical spine with coronal and sagittal reconstructed images. CT examination of the face performed. 3D reconstructions performed on a separate workstation FINDINGS: CT HEAD: BRAIN PARENCHYMA: No evidence of acute intraparenchymal hemorrhage or parenchymal evidence of acute large territory ischemic infarct. No mass-effect, midline shift or effacement of cerebral sulci. Jimenez-white matter distinction is preserved. VENTRICLES and EXTRA-AXIAL SPACES: No acute extra-axial or intraventricular hemorrhage. Ventricles and sulci are age-concordant. PARANASAL SINUSES/MASTOIDS: No hemorrhage or air-fluid levels within the visualized paranasal sinuses. The mastoid air cells are well-aerated. CALVARIUM/ORBITS: No skull fracture. The orbits and globes are intact to the extent visualized. EXTRACRANIAL SOFT TISSUES: No discernible abnormality. CT CERVICAL SPINE: PREVERTEBRAL SOFT TISSUES: Within normal limits. CRANIOCERVICAL JUNCTION: Intact. ALIGNMENT: No traumatic malalignment or traumatic facet widening. VERTEBRAE: No acute fracture. Vertebral body heights are maintained. Mild demineralization of the bones SPINAL CANAL/INTERVERTEBRAL DISCS: No high-grade spinal canal stenosis. No significant disc height loss. Minimal degenerative changes NEURAL FORAMINA: No significant neural foraminal stenosis. Multilevel uncovertebral joint and facet arthropathy notably contribute to OTHER: None. CT face: Apparent emphysema seen at the lung apices The patient is edentulous. Soft tissue swelling seen in the soft tissues around the nose. No definite facial bone fracture is seen. IMPRESSION: CT HEAD: No acute intracranial abnormality or calvarial fracture. CT CERVICAL SPINE: No acute fracture or traumatic malalignment of the cervical spine. Demineralization. Mild degenerative changes. No findings of acute facial bone fracture Electronically signed by: BUBBA ANDREA MD [facility] Provider Note - ED v3on 04-0 Provider Note - ED v3 Provider Note: Chart Review: ED NOTES ED NOTES: Chief complaint: Fall History of chief complaint: Patient presents after a mechanical fall that occurred yesterday at approximately 4 PM. She tripped over a bed frame. She struck her head and face. Did not lose consciousness. Does report a nosebleed for about 60 minutes. She did have some soft tissue injury to her left forearm as well. The reason she presents today is that part of the bed frame struck her chest over her breasts and is causing bilateral rib pain. She states it hurts to take a deep breath. Describes the pain as aching, generalized over the anterior chest wall, nonradiating, and 6 out of 10 in intensity. Allergies: Reviewed Home medications: Reviewed Medical history: Reviewed Surgical history: Reviewed Family history: Reviewed Social history: Reviewed Review of systems: I have reviewed constitutional HEENT cardiovascular pulmonary gastrointestinal genitourinary dermatologic psychiatric musculoskeletal neurologic and except where mentioned above all other systems are noted to be unremarkable. Nursing notes have been reviewed Physical examination: General appearance: Patient is sitting up in bed and appears well. Not toxic in appearance. Watching TV. Not dyspneic or diaphoretic. HEENT: Normocephalic and atraumatic. No cephalohematoma. Negative bey sign. No hemotympanum. Neck: Trachea is midline. Negative Nexus criteria. Cardiac: Regular sinus rate and rhythm. No murmurs. Generalized tenderness over the anterior chest wall diffusely. No crepitus. This is noted to be localized to the chest and does not radiate into the abdomen whatsoever Lungs: Clear to auscultation bilaterally without wheezing. No diminished breath sounds appreciated. Abdomen: Soft, obese, nontender, bowel sounds are normal. No tenderness in the upper quadrants whatsoever. Musculoskeletal: No gross bony deformity identified Neurologic: Moving all 4 extremities independently Dermatologic: No jaundice or pallor. Patient has 2, 0.5 cm superficial abrasions to the central dorsal aspect of the left forearm. No laceration identified. Psychiatric: Awake, alert, and oriented Clinical course: Patient was given a tablet of tramadol here to help with her pain as she did have a ride home Medical decision making: Based on the x-ray and CAT scan findings I feel the patient is appropriate for discharge Assessment: #1 mechanical fall #2 chest wall contusion #3 Minor head injury #4 resolved epistaxis Plan: Instructed to limit activity as tolerated and take Tylenol or Motrin as needed for her pain. Follow-up with her private physician and return if worse HISTORY OF PRESENTING ILLNESS GRICELDA is a 62 year old Female and was seen by me at 14-Feb-2023 19:19 for a chief complaint of fall (Patient to ED reference a fall. Patient fell face first over a bed frame hitting her face on the hardwood floor along with her knees and hitting her breast on the frame itself. She now has pain to her breast and abrasions/laceration on her left forearm and multiple bruises. She also has pain in her nose, she originally had a nose bleed that took about an hour to stop.)(1). Triage Information: Most recent Vital Sign Value Date Temp (F): 98 02-14-2023 18:13 Temp (C): 36.6 02-14-2023 18:13 Heart Rate (beats/min): 55 02-14-2023 18:13 Respirations (breaths/min): 16 02-14-2023 18:13 SpO2 (%): 97 02-14-2023 18:13 BP Systolic (mm Hg): 144 02-14-2023 18:13 BP Diastolic (mm Hg): 78 02-14-2023 18:13 PAST MEDICAL HISTORY ALLERGIES/INTOLERANCES : Allergy Allergen: contrast (specific type unknown) Type: Contrast Reaction: Rash Itching Other Allergen: penicillin Type: Drug Reaction: Rash HEALTH HISTORY: No documented data. OUTPATIENT MEDICATIONS: Home Medications Review Status for Reconciliation: N/A Med Status: N/A No documented data. SIGNIFICANT EVENTS: Past Medical History Description:CABG Description:DE Description:HTN Description:high cholesterol Description:bipolar CRITICAL CARE RESULTS: Radiology Results: Impression: There is borderline cardiomegaly but there is no vascular congestion or edema in the lungs appear clear.. There is an old fracture deformity in the posterior lateral seventh right rib but no acute rib fractures are appreciated.. Signed by Braulio Soriano MD Xray Ribs Bilateral with Cxr Min 4 View [Feb 14 2023 9:29PM] Impression: CT HEAD: No acute intracranial abnormality or calvarial fracture. CT CERVICAL SPINE: No acute fracture or traumatic malalignment of the cervical spine. Demineralization. Mild degenerative changes. No findings of acute facial bone fracture CT Facial Bones [Feb 14 2023 8:41PM] Impression: CT HEAD: No acute intracranial abnormality or calvarial fracture. CT CERVIC (more content not included)... Normal [facility] RIBS, BILATERAL W CXR MIN 4 VIEWSon 02-14-2023 RIBS, BILATERAL W CXR MIN 4 VIEWS STUDY: Bilateral Rib and Chest Radiographs; 02/14/2023 8:30PM INDICATION: Fall. COMPARISON: None available. ACCESSION NUMBER(S): [id number] ORDERING CLINICIAN: JET FITZGERALD DO TECHNIQUE: Frontal chest and two view(s) of the right ribs and two view(s) of the left ribs. FINDINGS: CARDIOMEDIASTINAL SILHOUETTE: Cardiomediastinal silhouette is at the upper limits of normal in size and configuration. There also are sternal wire sutures but there does not appear to be any vascular congestion or edema. LUNGS: Lungs are clear. There is no pleural effusion and no pneumothorax. ABDOMEN: No remarkable upper abdominal findings. RIGHT RIBS: There is no acute rib fracture. There is deformity in the posterior lateral seventh right rib but this appears to be an old rib fracture. LEFT RIBS: There is no acute rib fracture. OTHER VISUALIZED BONES: No acute osseous changes. There is a total shoulder arthroplasty on the left. Degenerative changes are seen in the right glenohumeral joint. IMPRESSION: There is borderline cardiomegaly but there is no vascular congestion or edema in the lungs appear clear.. There is an old fracture deformity in the posterior lateral seventh right rib but no acute rib fractures are appreciated.. Signed by Braulio Soriano MD Electronically signed by: BRAULIO SORIANO MD Normal [facility] Triage - EDon 02-14-2023 Triage - ED Quick Triage: The patient and/or guardian verbally acknowledges placement for services into the following (when Urgent Care Service hours are operating):emergency department Risk Screens: Chart Review: ARRIVAL INFORMATION Mode of Arrival: private vehicle CHIEF COMPLAINT GRICELDA NORMAN is a Female patient with a chief complaint of fall (Patient to ED reference a fall. Patient fell face first over a bed frame hitting her face on the hardwood floor along with her knees and hitting her breast on the frame itself. She now has pain to her breast and abrasions/laceration on her left forearm and multiple bruises. She also has pain in her nose, she originally had a nose bleed that took about an hour to stop.). Onset of the Complaint: 13-Feb-2023 16:00 Triage Date/Time: 14-Feb-2023 18:13 MARIZOL: 3V Pain Rating (0-10): 10 = Severe Vital Signs: Temperature: 98.0F ( 36.6C) taken oral Blood Pressure: 144/78 Mean: Heart Rate: 55 Respiratory Rate: 16 Pulse Oximetry: 97% on room air, no respiratory support. Height: 5 feet 6.00 inches. 167.6 CM Weight: 180.3 pounds. Calculated 81.8 kg. (stated) Calculated BMI (kg/m2): 29.120 Calculated BSA (m2) 1.95 [place] Coma Scale: Best Eye Response: (E4) spontaneous Best Motor Response: (M6) obeys commands Best Verbal Response: (V5) oriented [place] Score: 15 [place] Assessment Qualifiers: patient not sedated/intubated Cough lasting greater than 3 weeks: no Allergies: yes Mask applied: yes Patient has homicidal thoughts: no Symptoms Are Negative For: abrasion, bleeding, bruising, confusion, decreased ROM, deformity, loss of consciousness, numbness, pain (describe) and seizure. Risk Screens Suicide Risk Screen In the Past Month: Have you wished you were or wished you could go to sleep and not wake up no In the Past Month: Have you had any actual thoughts of killing yourself no In Your Lifetime: Have you ever done anything, started to do anything, or prepared to do anything to end your life no Interventions: Winter Fall Interventions: LOW INTERVENTIONS: *patient oriented to surroundings and call system, * patient/family falls education completed and documented, *patients fall status communicated during bedside handoff, *whiteboard updated, *mode of toileting discussed with patient, *bed in low position with brakes locked, *call light in reach, * non-skid footwear TRAVEL HISTORY Travel History Coronavirus Screening: no exposure or symptoms Travel Exposure History: NO travel to International locations in the past 30 days PAIN Pain Scale Used: SHARONDA Pain Rating (0-10): 10 = Severe Past Medical History: Past Medical History Reviewedyes Electronic Signatures: Otilio Judd (RN) (Signed 14-Feb-2023 19:25) Authored: Quick Triage, Risk Screens, Chart Review, Past Medical History Amol Blevins (EMT-P) (Signed 14-Feb-2023 18:18) Entered: Risk Screens, Pain, Travel History, Chart Review, Scores Authored: Quick Triage, Risk Screens, Pain, Travel History, Chart Review, Scores Last Updated: 14-Feb-2023 19:25 by Otilio Judd (RN) [facility] XR SHOULDER LEFT 2+ VIEWS ([place] JOYNER)on 07-02-2022 XR SHOULDER LEFT 2+ VIEWS (STANDARD) EXAMINATION: XR SHOULDER LEFT 2+ VIEWS (STANDARD) HISTORY: left shoulder pain chronic COMPARISON: None TECHNIQUE: AP, external rotation, and scapular Y views of the left shoulder. FINDINGS: No fracture or dislocation is seen. There is moderately advanced degenerative joint disease finding with joint space narrowing, sclerosis, and prominent periarticular spurring seen at the glenohumeral and AC joint. Calcification inferior to the lateral clavicle and downsloping of the acromion with narrowing of the rotator cuff space is apparent. Previous sternotomy is noted. Multilevel dorsal degenerative changes present. IMPRESSION: No acute left shoulder abnormality. Advanced glenohumeral AC joint and dorsal degenerative changes are present. Narrowing of the rotator cuff space may reflect a degree of impingement. [facility] Workstation ID: [id number] Dictated by: NICOLLE CAICEDO on TueJul 05, 2022 9:34:45 AM EDT Transcribed by: OTIS TIDWELL on TueJul 05, 2022 9:55:16 AM EDT Finalized by: NICOLLE CAICEDO on TueJul 05, 2022 11:31:48 AM EDT [facility] Comment on above: Order Comment: Injur y/Trauma or Illness?:Illness/Other How long have you had these symptoms (acute/chronic)?:Acute Reason for exam?:pain History of cancer?:no Surgeries, chemotherapy, or radiation?:no Type of Exam?:Initial Additional signs and symptoms?:arthritis XR FOOT LEFT 3+ VIEWS (STAND KLEVER)on 05-31-2022 XR FOOT LEFT 3+ VIEWS (STANDARD) EXAMINATION: XR FOOT LEFT 3+ VIEWS (STANDARD) HISTORY: ORDERING SYSTEM PROVIDED HISTORY: foot injury, TECHNOLOGIST PROVIDED HISTORY: Injury/Trauma Reason for exam: foot injury, pain Cancer History: no Surgery, RadiationHistory: no Encounter Type: Initial Mechanism of injury: stubbed toes, attention 1st and 2nd ORDERING SYSTEM PROVIDED DIAGNOSIS CODES: COMPARISON: No relevant prior study available at time of interpretation. IMPRESSION: FINDINGS/ 1. No radiographic evidence of acute osseous abnormality of the left foot. 2. Status post prior fusion of the 1st MTP joint. 3. Plantar calcaneal spur. Workstation ID: [id number] Dictated by: LENNOX NG on TueMay 31, 2022 5:03:10 PM EDT Transcribed by: LENNOX NG on TueMay 31, 2022 5:03:10 PM EDT Finalized by: LENNOX NG on TueMay 31, 2022 5:03:10 PM EDT [facility] Comment on above: Order Comment: Injur y/Trauma or Illness?:Injury/Trauma How long have you had these symptoms (acute/chronic)?:Acute Reason for exam?:foot injury, pain History of cancer?:no Surgeries, chemotherapy, or radiation?:no Type of Exam?:Initial Mechanism of injury?:stubbed toes, attention 1st and 2nd Basic Metabolic Panelon 04-0 Anion gap [Moles/Vol] 8 mmol/L Low 10 - 20 mmol/L [facility] Calcium [Mass/Vol] 9.5 mg/dL 8.4 - 10. 2 mg/dL [facility] Chloride [Moles/Vol] 101 mmol/L 98 - 10 8 mmol/L [facility] Creatinine [Mass/Vol] 1.01 mg/dL 0.60 - 1.20 [facility] GFR/1.73 sq M predicted among non-blacks MDRD (S/P/Bld) [Vol rate/Area] The eGFR should be used for monitoring renal function only and not for medication dosing. [facility] GFR/1.73 sq M.predicted CKD-EPI (S/P/Bld) [Vol rate/Area] 60 >=60 mL/min/1.73 m2 [facility] Glucose [Mass/Vol] 90 mg/dL 65 - 99 mg/dL [facility] H[facility] [Moles/Vol] 33 mmol/L High 21 - 32 mmol/L [facility] Interpretation and review of laboratory results Abnormal [facility] Potassium [Moles/Vol] 3.4 mmol/L Low 3.5 - 5.1 mmol/L [facility] Sodium [Moles/Vol] 139 mmol/L 135 - 145 mmol/L [facility] Urea nitrogen [Mass/Vol] 11 mg/dL 8 - 25 mg/dL [facility] Urea nitrogen/Creatinine [Mass ratio] 10.9 mg/mg [facility] ECHOCARDIOGRAM COMPLETEon ECHOCARDIOGRAM COMPLETE Patient Info Name: GRICELDA NORMAN Age: 60 years : 1960 Gender: Female Ht: 168 cm Wt: 78 kg BSA: 1.93 m2 HR: 47 bpm BP: 119 / 71 mmHg Heart Rhythm: Bradycardia Technical Quality: Good Exam Date: 02/05/2021 7:53 AM Patient Status: Recurring patient Chalk Machine Operator: Oul, Neeta, TAYLER Exam Type: ECHOCARDIOGRAM COMPLETE Study Info Indications I50.41 - Acute combined systolic (congestive) and diastolic (congestive) heart failure Referring Physician: ÁNGEL PONCE ; [id number] BMI: 27.92 kg/m2 Summary 1. Mildly enlarged left ventricular chamber. [...] right ventricle systolic pressure is 22 mmHg. History/Risk Factors Dyslipidemia: Yes Coronary Artery Disease (CAD) Yes Tobacco Use: Former History/Risk Factors REFLUX. ANXIETY. EDEMA. 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 Prior Interventions CABG: Yes Date of CAB11/14/2003 Procedure(s): Complete two-dimensional, color flow and Doppler transthoracic echocardiogram is performed. Left Ventricle The left ventricular diastolic function is normal. Mildly enlarged left ventricular chamber. Normal wall thickness. Normal systolic function with no regional wall motion abnormalities with an estimated ejection fraction of 60-65%. Right Ventricle Right ventricular chamber dimension is normal. Right ventricular systolic function is normal. Left Atria Left atrial chamber is normal with a left atrial volume index of 25 ml/m2 by BP MOD. Right Atria Right atrial chamber dimension is enlarged. Atrial Septum Intact interatrial septum visualized by color Doppler and 2D imaging. Aortic Valve The aortic valve is trileaflet. There is no aortic valve sclerosis. There is no aortic valve stenosis with a peak velocity of 1.3 m/s, mean gradient of 3 mmHg, and aortic valve area of 2.9 cm2. There is no aortic valve regurgitation. Pulmonic Valve The pulmonic valve is normal. There is no pulmonic valve stenosis. There is no pulmonic regurgitation. Mitral Valve The mitral valve has normal leaflets. There is no mitral valve stenosis. There is no mitral valve regurgitation. Tricuspid Valve The tricuspid valve leaflets are normal. There is no significant tricuspid valve stenosis. There is trace tricuspid valve regurgitation. There is no pulmonary hypertension, estimated right ventricle systolic pressure is 22 mmHg. Pericardium/Pleural The pericardium appears normal. There is no pericardial effusion. Inferior Vena Cava Normal inferior vena cava with >50% collapse upon inspiration consistent with normal right atrial pressure. Aorta The aortic measurements are indexed to age and body surface area. The aortic root is normal measuring 3.3 cm with an index of 1.7 cm/m2. The proximal ascending aorta is normal measuring 3.0 cm with an index of 1.6 cm/m2. Wall Motion Scoring Wall Motion Scoring Index: 1.00 Left Ventricular Outflow Tract ---- Name Value Normal ---- LVOT 2D ---- LVOT Diameter 2.1 cm LVOT Doppler ---- LVOT Peak Velocity 1.1 m/s LVOT Mean Gradient 3 mmHg LVOT VTI 25 cm LVOT VTI/AV VTI Ratio 0.8 LVOT Stroke Volume 87 ml LVOT Stroke Index 44.83 ml/m2 Pulmonic Valve ---- Name Value Normal ---- PV Doppler ---- PV Peak Velocity 1.19 m/s PV Mean Gradient 2 mmHg PV VTI 27 cm Mitral Valve ---- Name Value Normal ---- MV Doppler ---- MV Peak Velocity 0.90 m/s MV Mean Gradient 1 mmHg MV VTI 32 cm MV Decel [place] 411 cm/s2 MV PHT 29 ms MV Area (PHT) 7.7 cm2 4.0-5.0 MV Area (Cont Eq VTI) 2.7 cm2 MV Area Index (Cont Eq VTI) 1.38 cm2/m2 MV Diastolic Function ---- MV E Peak Velocity 1 m/s MV A Peak Velocity 1 m/s MV E/A 1.1 MV Decel Time 99 ms MV Annular TDI ---- MV Septal e' Velocity 5.6 cm/s >=8.0 MV E/e' (Septal) 13.3 <=8.0 MV Lateral e' Velocity 10.6 cm/s >=10.0 MV E/e' (Lateral) 7.0 <=8.0 MV e' Average 8.08 MV E/e' (Average) 10.1 Tricuspid Valve ---- Name Value Normal ---- TV Regurgitation Doppler ---- TR Peak Velocity 2.20 m/s Estimated PAP/RSVP ---- RA Pressure 3 mmHg <=5 PA Systolic Pressure 22 mmHg <=36 RV Systolic Pressure 22 mmHg <36 Aorta ---- Name Value Normal ---- Ascending Aorta ---- Ao Root Diameter (2D) 3.3 cm 2.7-3.3 Ao Root Diam Index (2D) 1.7 cm/m2 1.6-2.0 Prox Asc Ao Diameter 3.0 cm 2.3-3.1 Prox Asc Ao Diameter Index 1.6 cm/m2 1.3-1.9 Venous ---- Name Value Normal ---- IVC/SVC ---- IVC Diameter (Exp 2D) 1.2 cm <=2.1 Aortic Valve ---- Name Value Normal ---- AV Doppler ---- AV Peak Velocity 1.3 m/s AV Mean Gradient 3 mmHg AV VTI 30 cm AV Area (Cont Eq VTI) 2.9 cm2 AV Area Index (Cont Eq VTI) 2 cm2/m2 AV Area (Cont Eq Radha) 3.0 cm2 LVOT Vmax/AV Vmax 0.86 LVOT VTI/AV VTI Ratio 0.8 AV Regurgitation 2D ---- LVOT Area 3.5 cm2 Ventricles ---- Name Value Normal ---- LV Dimensions 2D/MM ---- IVS Diastolic Thickness (2D) 0.1 cm 0.6-0.9 LVID Diastole (2D) 5.2 cm 3.8-5.2 LVIW Diastolic Thickness (2D) 0.7 cm 0.6-0.9 LVID Systole (2D) 4.0 cm 2.2-3.5 LVOT Diameter 2.1 cm LV Mass (2D Cubed) 59.98 g 67.00-162.00 LV Mass Index (2D Cubed) 31 g/m2 43-95 Relative Wall Thickness (2D) 0.26 <=0.42 LV Fractional Shortening/Ejection Fraction 2D/MM ---- LV Fractional Shortening (2D) 23 % 27-45 LV EF (2D Teicholz) 45 % 54-74 LV Diastolic Volume (4C MOD) 98 ml LV Systolic Volume (4C MOD) 36 ml LV EF (4C MOD) 60 % LV Diastolic Volume (2C MOD) 91 ml LV Systolic Volume (2C MOD) 33 ml LV EF (2C MOD) 63 % LV Diastolic Volume (BP MOD) 98 ml 46-106 LV Diastolic Volume Index (BP MOD) 51 ml/m2 29-61 LV Systolic Volume (BP MOD) 37 ml 14-42 LV Systolic Volume Index (BP MOD) 19 ml/m2 8-24 LV EF (BP MOD) 62 % 55-70 LV Diastolic Length (4C) 6.6 cm LV Systolic Length (4C) 5.9 cm LV End Diastolic Volume (BP A-L) 100 ml LV End Systolic Volume (BP A-L) 37 ml LV EF (BP A-L) 63 % LV Stroke Volume (4C MOD) 63 ml LV SI (4C MOD) 32.42 ml/m2 RV Dimensions 2D/MM ---- RVID Diastole (2D) 3.8 cm 2.5-3.5 RV Mid-Cavity Diastolic Dimension 3.6 cm 1.9-3.5 TAPSE 1.9 cm >=1.7 RV Systolic Function ---- RV s' Velocity 0.1 m/s 0.1-0.2 Atria ---- Name Value Normal ---- LA Dimensions ---- LA Area (4C) 16.6 cm2 LA Length (4C) 5.1 cm LA Area (2C) 18.9 cm2 LA Length (2C) 5.1 cm LA Volume (4C MOD) 43 ml LA Volume (2C MOD) 56 ml LA Volume (4C A-L) 46 ml LA Volume (BP A-L) 53 ml LA Volume Index (BP A-L) 27 ml/m2 <=34 LA Volume (BP MOD) 49 ml LA Volume Index (BP MOD) 25 ml/m2 16-34 RA Dimensions ---- RA Systolic Major Gobles Length (4C) 5.40 cm <=5.30 RA Area (4C) 19.8 cm2 <=18.0 RA Area (4C) Index 10 cm2/m2 RA ESV (4C MOD) 59 ml 15-27 RA ESV Index (4C MOD) 31 ml/m2 <=27 Report Signatures Finalized by Jay Ram MD on 02/05/2021 04:25 PM [facility] Comprehensive Metabolic Pane lily 12-25-2020 Albumin [Mass/Vol] 4.1 g/dL 3.2 - 5.2 g/dL [facility] ALP [Catalytic activity/Vol] 110 U/L 40 - 150 U/L [facility] ALT [Catalytic activity/Vol] 30 U/L 14 - 65 U/L [facility] Anion gap [Moles/Vol] 7 mmol/L Low 10 - 20 mmol/L [facility] AST [Catalytic activity/Vol] 24 U/L 0 - 45 U/L [facility] Bilirubin [Mass/Vol] 0.5 mg/dL 0.0 - 1 .3 mg/dL [facility] Calcium [Mass/Vol] 9.0 mg/dL 8.4 - 10. 2 mg/dL [facility] Chloride [Moles/Vol] 108 mmol/L 98 - 10 8 mmol/L [facility] Creatinine [Mass/Vol] 0.82 mg/dL 0.60 - 1.20 Oh [facility] GFR/1.73 sq M predicted among non-blacks MDRD (S/P/Bld) [Vol rate/Area] The eGFR should be used for monitoring renal function only and not for medication dosing. [facility] GFR/1.73 sq M.predicted CKD-EPI (S/P/Bld) [Vol rate/Area] 77 >=60 mL/min/1.73 m2 [facility] Glucose [Mass/Vol] 74 mg/dL 65 - 99 mg/dL [place] HCO3 [Moles/Vol] 29 mmol/L 21 - 32 mmol/L [facility] Interpretation and review of laboratory results Abnormal [facility] Potassium [Moles/Vol] 3.6 mmol/L 3.5 - 5.1 mmol/L [facility] Protein [Mass/Vol] 7.0 g/dL 6.0 - 8.0 g/dL [facility] Sodium [Moles/Vol] 140 mmol/L 135 - 145 mmol/L [facility] Urea nitrogen [Mass/Vol] 12 mg/dL 8 - 25 mg/dL [facility] Urea nitrogen/Creatinine [Mass ratio] 14.6 mg/mg [facility] Lipid Panelon 12-25-2020 Cholesterol [Mass/Vol] 142 mg/dL 100 - 199 mg/dL [facility] Comment on above: National Cholesterol Education Program Guidelines: Cholesterol Desirable: <200 mg/dL Borderline High: 200-239 mg/dL High: greater than or equal to 240 mg/dL Cholesterol in HDL [Mass/Vol] 86 mg/dL 40 - 59 [facility] Comment on above: National Cholesterol Education Program Guidelines: HDL Cholesterol Low: <40 mg/dL Near Optimal: 40-59 mg/dL High: greater than or equal to 60 mg/dL Cholesterol in LDL [Mass/Vol] 49 mg/dL 10 - 130 mg/dL [facility] Comment on above: National Cholesterol Education Program Guidelines: LDL Cholesterol Optimal: <100 mg/dL Near Optimal/above Optimal: 100-129 mg/dL Borderline High: 130-159 mg/dL High: 160-189 mg/dL Very High: greater than or equal to 190 mg/dL Cholesterol non HDL [Mass/Vol] 56 mg/dL [facility] Comment on above: National Cholesterol Education Program Guidelines: NON HDL Cholesterol Desirable: <130 mg/dL Borderline High: 130-159 mg/dL High: 160-189 mg/dL Very High: > or = 190 mg/dL Cholesterol.total/Cho lesterol in HDL [Mass ratio] 1.7 {ratio} ratio [facility] Comment on above: Female Cholesterol/H DL Ratio: Average risk: 4.4 1/2 average risk: 3.3 2 x average risk: 7.1 Triglyceride [Mass/Vol] 37 mg/dL 30 - 150 mg/dL [facility] Comment on above: National Cholesterol Education Program Guidelines: Triglyceride Normal: <150 mg/dL Borderline High: 150-199 mg/dL High: 200-499 mg/dL Very High: greater than or equal to 500 mg/dL TSH with Reflex Free T4on Interpretation and review of laboratory results Normal [facility] TSH Qn 1.16 m[IU]/L [facility] VITAMIN D, TOTAL, 25-OHon 25-Hydroxyvitamin D2+25-Hydroxyvitamin D3 [Mass/Vol] 27 ng/mL Low 30 - 100 ng/mL [facility] Comment on above: Vitamin D status: Deficiency: <20 ng/mL Insufficiency: 20-30 ng/mL Sufficiency: 30-100 ng/mL Toxicity: >100 ng/mL Please note that Fluorescein which is used in angiography has been shown to falsely elevate the results of Vitamin D with our current assay. Evidence suggests that patients undergoing fluorescein dye angiography can retain small amounts of fluorescein in the body for up to 48 to 72 hours post-treatment. In the cases of patients with renal insufficiency, retention could be much longer. Samples should be resubmitted post fluorescein clearance to ensure there is no interference with the Vitamin D test result. Interpretation and review of laboratory results Abnormal [facility] Assay performed kamala Wills's chemiluminescence methodology. [facility] XR Foot 3+ Views Righton XR Foot 3+ Views Right Exam Date/Time: 01/21/2019 13:06 EDT Reason for Exam: possible foreign body;Other (please specify) Report STUDY: XR Foot 3+ Views Right; 01/21/2019 1:06 pm INDICATION: Other (please specify). COMPARISON: None. ACCESSION NUMBER(S): [id number] ORDERING CLINICIAN: Enzo Ma FINDINGS: Severe hallux valgus with 1st MTP degenerative changes. No acute fracture or dislocation. Small plantar calcaneal spur. There is a 4 mm linear foreign body adjacent to the 3rd proximal phalanx. IMPRESSION: No acute osseous injury of the right foot. 4 mm linear foreign body adjacent to the 3rd proximal phalanx. FINAL REPORT Dictated: 01/21/2019 1:22 pm Akira Jasso MD Signed (Electronic Signature): 01/21/2019 1:22 pm Signed by: Akira Jasso MD Technologist: [facility] FENTANYL CONFIRM, URINEon FENTANYL CONFIRM,U <1.0 Normal [facility] Comment on above: Result Comment: INTE RPRETIVE INFORMATION: Fentanyl and Metabolite, Urine Methodology: Quantitative Liquid Chromatography-Tandem Mass Spectrometry Positive cutoff: 1.0 ng/mL For medical purposes only; not valid for forensic use. The absence of expected drug(s) and/or drug metabolite(s) may indicate non-compliance, inappropriate timing of specimen collection relative to drug administration, poor drug absorption, diluted/adulterated urine, or limitations of testing. The concentration value must be greater than or equal to the cutoff to be reported as positive. Interpretive questions should be directed to the laboratory. Test developed and characteristics determined by [facility]. See Compliance Statement B: [email or web address]/ Performed By: #### F ENTU #### [facility] [address] [place] [address] NORFENTANYL CONFIRM,U <1.0 Normal [facility] Comment on above: Result Comment: Perf ormed by [facility], [address] [place] [address] [email or web address], Jakob Ruff MD - Lab. Director Performed By: #### F ENTU #### [facility] [address] [place] [address] TRAMADOL CONFIRM, URINEon O-DESMETHYLTRAMADOL,U <25 Normal [facility] Comment on above: Result Comment: Perf ormed by [facility], [address] [place] [address] [email or web address], Jakob Ruff MD - Lab. Director Performed By: #### T RAM #### [facility] [address] [place] [address] TRAMADOL CONFIRM,U <25 Normal [facility] Comment on above: Result Comment: INTE RPRETIVE INFORMATION: Tramadol and Metabolite, Urine Methodology: Quantitative Liquid Chromatography-Tandem Mass Spectrometry Positive cutoff: Tramadol: 25 ng/mL o-desmethyltramadol: 25 ng/mL For medical purposes only; not valid for forensic use. The presence of metabolite(s) without parent drug is common and may indicate use of parent drug during the prior week. The absence of expected drug(s) and/or drug metabolite(s) may indicate non-compliance, inappropriate timing of specimen collection relative to drug administration, poor drug absorption, diluted/adulterated urine, or limitations of testing. The concentration value must be greater than or equal to the cutoff to be reported as positive. Interpretive questions should be directed to the laboratory. Test developed and characteristics determined by [employer]. See Compliance Statement B: marshallindex/CS Performed By: #### T [facility] #### [facility] [address] [place] [address] BENZODIAZEPINES CONF,URINEon 09-17-2018 7-AMINOCLONAZEPAM <5 Normal [facility] Comment on above: Performed By: #### B ENCN #### [facility] [address] [place] [address] ALPHA-HYDROXYALPRAZOL AM <5 Normal [facility] Comment on above: Performed By: #### B ENCN #### [facility] [address] [place] [address] ALPHA-HYRDOXYMIDAZOLA M <20 Normal [facility] Comment on above: Result Comment: Perf ormed by [facility], [address] [place] [address] [email or web address], Jakob Ruff MD - Lab. Director Performed By: #### B ENCN #### [facility] [address] [place] [address] ALPRAZOLAM <5 Normal [facility] Comment on above: Performed By: #### B ENCN #### [facility] [address] [place] [address] CHLORDIAZEPOXIDE <20 Normal [facility] Comment on above: Performed By: #### B ENCN #### [facility] [address] [place] [address] CLONAZEPAM <5 Normal [facility] Comment on above: Performed By: #### B ENCN #### [facility] [address] [place] [address] DIAZEPAM <20 Normal [facility] Comment on above: Result Comment: INTE RPRETIVE INFORMATION: Benzodiazepines, Urine, Quantitative Methodology: Quantitative Liquid Chromatography-Tandem Mass Spectrometry Positive cutoff: 20 ng/mL unless specified below: Alprazolam 5 ng/mL Alpha-hydroxyalprazolam 5 ng/mL Clonazepam 5 ng/mL 7-aminoclonazepam 5 ng/mL For medical purposes only; not valid for forensic use. Identification of specific drug(s) taken by specimen donor is problematic due to common metabolites, some of which are prescription drugs themselves. The absence of expected drug(s) and/or drug metabolite(s) may indicate non-compliance, inappropriate timing of specimen collection relative to drug administration, poor drug absorption, diluted/adulterated urine, or limitations of testing. The concentration value must be greater than or equal to the cutoff to be reported as positive. Interpretive questions should be directed to the laboratory. Test developed and characteristics determined by [facility]. See Compliance Statement B: [employer]/CS Performed By: #### B ENCN #### [facility] [address] [place] [address] LORAZEPAM <20 Normal [facility] Comment on above: Performed By: #### B ENCN #### [facility] [address] [place] [address] MIDAZOLAM <20 Normal [facility] Comment on above: Performed By: #### B ENCN #### [facility] [address] [place] [address] NORDIAZEPAM <20 Normal [facility] Comment on above: Performed By: #### B ENCN #### [facility] [address] [place] [address] OXAZEPAM <20 Normal [facility] Comment on above: Performed By: #### B ENCN #### [facility] [address] [facility] [place] [address] TEMAZEPAM <20 Normal [facility] Comment on above: Performed By: #### B ENCN #### [facility] [address] [facility] [place] [address] OPIATE CONFIRMATION,URINEon 09-17-2018 6-ACETYLMORPHINE <10 Normal [facility] Comment on above: Result Comment: INTE RPRETIVE INFORMATION: Opiates, Urine, Quantitative Methodology: Quantitative Liquid Chromatography-Tandem Mass Spectrometry Positive cutoff: 20 ng/mL except as specified below 6-acetylmorphine 10 ng/mL For medical purposes only; not valid for forensic use. Identification of specific drug(s) taken by specimen donor is problematic due to common metabolites, some of which are prescription drugs themselves. The absence of expected drug(s) and/or drug metabolite(s) may indicate non-compliance, inappropriate timing of specimen collection relative to drug administration, poor drug absorption, diluted/adulterated urine, or limitations of testing. All drug analytes covered are in the non-glucuronidated (free) forms. The concentration value must be greater than or equal to the cutoff to be reported as positive. A very small amount of an unexpected drug analyte in the presence of a large amount of an expected drug analyte may reflect pharmaceutical impurity. Interpretive questions should be directed to the laboratory. Test developed and characteristics determined by [facility]. See Compliance Statement B: [employer]/CS Performed By: #### O PIC2 #### [facility] [address] [facility] [place] [address] CODEINE <20 Normal [facility] Comment on above: Performed By: #### O PIC2 #### [facility] [address] [facility] [place] [address] HYDROCODONE <20 Normal [facility] Comment on above: Performed By: #### O PIC2 #### [facility] [address] [facility] [place] [address] HYDROMORPHONE <20 Normal [facility] Comment on above: Performed By: #### O PIC2 #### [facility] [address] [facility] [place] [address] MORPHINE <20 Normal [facility] Comment on above: Performed By: #### O PIC2 #### [facility] [address] [place] [address] NORHYDROCODONE <20 Normal [facility] Comment on above: Result Comment: Perf ormed by [facility], [address] [place] [address] [email or web address], Jakob Ruff MD - Lab. Director Performed By: #### O PIC2 #### [facility] [address] [place] [address] NOROXYCODONE 339 ng/mL Normal [facility] Comment on above: Result Comment: Noro xycodone is a metabolite of oxycodone; consistent with use of a drug containing oxycodone. Performed By: #### O PIC2 #### [facility] [address] [place] [address] NOROXYMORPHONE <20 Normal [facility] Comment on above: Performed By: #### O PIC2 #### [place] [address] OXYCODONE 193 ng/mL Normal [facility] Comment on above: Result Comment: Cons istent with use of a drug containing oxycodone. Performed By: #### O PIC2 #### [facility] [address] [place] [address] OXYMORPHONE <20 Normal [facility] Comment on above: Performed By: #### O PIC2 #### [facility] [address] [place] [address] DRUG SCREEN,PAIN MANAGEMENT W/ REFLEXon 09-14-2018 AMPHETAMINE SCREEN,U Negative Normal NEGATIVE [facility] Comment on above: Result Comment: CUTO FF LEVEL: 500 NG/ML Cross-reactivity has been reported with high concentrations of the following drugs: buproprion, chloroquine, chlorpromazine, ephedrine, mephentermine, fenfluramine, phentermine, phenylpropanolamine, pseudoephedrine, and propranolol. Performed By: #### D SPMR #### [facility] [address] [place] [address] BARBITURATES SCREEN,U Negative Normal NEGATIVE [facility] Comment on above: Result Comment: CUTO FF LEVEL: 200 NG/ML Performed By: #### D SPMR #### [facility] [address] [place] [id number] BENZODIAZEPINES SCREEN,U Negative Normal NEGATIVE [facility] Comment on above: Result Comment: CUTO FF LEVEL: 200 NG/ML Benzodiazepine Confirmatory testing has been sent to a reference laboratory and will be reported separately. Although the benzodiazepine screening test provides rapid results; the confirmatory test provide the most sensitive and specific assessment of drug presence or absence in the urine. Performed By: #### D SPMR #### [facility] [address] [place] [address] CANNABINOIDS SCREEN,U Negative Normal NEGATIVE [facility] Comment on above: Result Comment: CUTO FF LEVEL: 50 NG/ML Performed By: #### D SPMR #### [facility] [address] [place] [address] COCAINE METABOLITE SCREEN,U Negative Normal NEGATIVE [facility] Comment on above: Result Comment: CUTO FF LEVEL: 150 NG/ML Performed By: #### D SPMR #### [facility] [address] [place] [address] DRUG SCREEN COMMENT. SEE BELOW Normal [facility] Comment on above: Result Comment: Drug screen results are presumptive and should not be used to assess compliance with prescribed medication. Definitive confirmatory drug testing has been added to this sample for any positive screen result and will be reported separately. . Toxicology screening results are reported qualitatively. The concentration must be greater than or equal to the cutoff to be reported as positive. The concentration at which the screening test can detect an individual drug or metabolite varies. The absence of expected drug(s) and/or drug metabolite(s) may indicate non-compliance, inappropriate timing of specimen collection relative to drug administration, poor drug absorption, diluted/adulterated urine, or limitations of testing. For medical purposes only; not valid for forensic use. . Interpretive questions should be directed to the laboratory medical directors. Performed By: #### D SPMR #### [facility] [address] [place] [address] METHADONE SCREEN,U Negative Normal NEGATIVE [facility] Comment on above: Result Comment: CUTO FF LEVEL: 150 NG/ML The metabolite F-sqrkf-ksiephrokxumig (LAAM) is not detected by this method in concentrations that would be found in the urine of patients on LAAM therapy. Performed By: #### D SPMR #### [facility] [address] [place] [id number] OPIATES SCREEN,U Negative Normal NEGATIVE [facility] Comment on above: Result Comment: CUTO FF LEVEL: 300 NG/ML The opiate screen does not detect fentanyl, meperidine, or tramadol. Oxycodone is not consistently detected (refer to Oxycodone Screen, Urine result). Opiate/Oxycodone Confirmatory testing has been sent to a reference laboratory and will be reported separately. Although the screening tests provide rapid results; the confirmatory tests provide the most sensitive and specific assessment of drug presence or absence in the urine. Performed By: #### D SPMR #### [facility] [address] [place] [id number] PCP SCREEN,U Negative Normal NEGATIVE [facility] Comment on above: Result Comment: CUTO FF LEVEL: 25 NG/ML Cross-reactivity has been reported with dextromethorphan. Performed By: #### D SPMR #### [facility] [address] [place] [id number] Vital Signs Date Time Vital Sign Value Performing Clinician Facility 05-21-2025 15:56-0400 Body temperature 98.71 [degF] CLYDE Garciamann DPM Work Phone: [facility] 05-21-2025 15:56-0400 Diastolic blood pressure 77 mm[Hg] CLYDE Hassmann DPM Work Phone: [facility] 05-21-2025 15:56-0400 Heart rate 74 /min CJ Hassmann DPM Work Phone: [facility] 05-21-2025 15:56-0400 Respiratory rate 1 /min CLYED Hassmann DPM Work Phone: [facility] 05-21-2025 15:56-0400 Systolic blood pressure 147 mm[Hg] CJ Hassmann DPM Work Phone: [facility] 05-14-2025 08:52-0400 Diastolic blood pressure 71 mm[Hg] Crissy Zavala DO Work Phone: [address]01-2025 08:52-0400 Heart rate 57 /min Crissy Zavala DO Work Phone: [facility] 05-14-2025 08:52-0400 SaO2% (BldA) [Mass fraction] 98 % Crissy Zavala DO Work Phone: [facility] 05-14-2025 08:52-0400 Systolic blood pressure 116 mm[Hg] Crissy Zavala DO Work Phone: [facility] 04-16-2025 15:19-0400 Diastolic blood pressure 82 mm[Hg] Crissy Zavala DO Work Phone: [facility] 04-16-2025 15:19-0400 Heart rate 57 /min Crissy Zavala DO Work Phone: [facility] 04-16-2025 15:19-0400 SaO2% (BldA) [Mass fraction] 96 % Crissy Zavala DO Work Phone: [facility] 04-16-2025 15:19-0400 Systolic blood pressure 136 mm[Hg] Crissy Zavala DO Work Phone: [facility] 03-19-2025 08:05-0400 Diastolic blood pressure 82 mm[Hg] Crissy Zavala DO Work Phone: [facility] 03-19-2025 08:05-0400 Heart rate 57 /min Crissy Zavala DO Work Phone: [facility] 03-19-2025 08:05-0400 SaO2% (BldA) [Mass fraction] 99 % Crissy Zavala DO Work Phone: [facility] 03-19-2025 08:05-0400 Systolic blood pressure 131 mm[Hg] Crissy Zavala DO Work Phone: [facility] 01-29-2025 10:28-0400 Body height 158.8 cm Susan uBck APRN.TREASURY CONSULTANT Work Phone: [facility] 01-29-2025 10:28-0400 Body mass index (BMI) [Ratio] 33.39 kg/m2 Susan Buck APRN.TREASURY CONSULTANT Work Phone: [facility] 01-29-2025 10:28-0400 Body weight 84.14 kg Susan Buck APRN.TREASURY CONSULTANT Work Phone: [facility] 01-29-2025 10:28-0400 Diastolic blood pressure 76 mm[Hg] Susan Buck APRN.TREASURY CONSULTANT Work Phone: [facility] 01-29-2025 10:28-0400 Heart rate 62 /min Susan Buck APRN.TREASURY CONSULTANT Work Phone: [facility] 01-29-2025 10:28-0400 Respiratory rate 18 /min Susan Buck APRN.TREASURY CONSULTANT Work Phone: [facility] 01-29-2025 10:28-0400 SaO2% (BldA) [Mass fraction] 99 % Susan Buck APRN.TREASURY CONSULTANT Work Phone: [facility] Comment on above: room air 01-29-2025 10:28-0400 Systolic blood pressure 132 mm[Hg] Susan Buck APRN.TREASURY CONSULTANT Work Phone: [facility] 01-22-2025 14:39-0400 Body height 160.7 cm CLYDE Garciamann DPM Work Phone: [facility] 01-22-2025 14:39-0400 Body mass index (BMI) [Ratio] 33.04 kg/m2 CJ Hassmann DPM Work Phone: [facility] 01-22-2025 14:39-0400 Body temperature 97 [degF] CJ Hassmann DPM Work Phone: [facility] 01-22-2025 14:39-0400 Body weight 85.28 kg CJ Hassmann DPM Work Phone: [facility] 01-22-2025 14:39-0400 Diastolic blood pressure 76 mm[Hg] CJ Hassmann DPM Work Phone: [facility] 01-22-2025 14:39-0400 Heart rate 76 /min CJ Hassmann DPM Work Phone: [facility] 01-22-2025 14:39-0400 Respiratory rate 16 /min CJ Hassmann DPM Work Phone: [facility] 01-22-2025 14:39-0400 SaO2% (BldA) [Mass fraction] 98 % CJ Hassmann DPM Work Phone: [facility] 01-22-2025 14:39-0400 Systolic blood pressure 121 mm[Hg] CJ Hassmann DPM Work Phone: [facility] 01-01-2025 15:48-0500 Body temperature 96.6 [degF] Tatiana [place] DPM Work Phone: [facility] 01-01-2025 15:48-0500 Diastolic blood pressure 77 mm[Hg] Tatiana [place] DPM Work Phone: [facility] 01-01-2025 15:48-0500 Heart rate 53 /min Tatiana Tram DPM Work Phone: [facility] 01-01-2025 15:48-0500 Systolic blood pressure 139 mm[Hg] Tatiana Tram DPM Work Phone: [facility] 12-12-2024 10:04-0500 Body temperature 97.9 [degF] Tatiana Tram DPM Work Phone: [facility] 12-12-2024 10:04-0500 Diastolic blood pressure 78 mm[Hg] Tatiana Tram DPM Work Phone: [facility] 12-12-2024 10:04-0500 Heart rate 54 /min Tatiana Tram DPM Work Phone: [facility] 12-12-2024 10:04-0500 SaO2% (BldA) [Mass fraction] 97 % Tatiana [place] DPM Work Phone: [facility] 12-12-2024 10:04-0500 Systolic blood pressure 126 mm[Hg] Tatiana [place] DPM Work Phone: [facility] 11-19-2024 13:44-0500 Body temperature 98.49 [degF] Tatiana [place] DPM Work Phone: [facility] 11-19-2024 13:44-0500 Diastolic blood pressure 83 mm[Hg] Tatiana Tram DPM Work Phone: [facility] 11-19-2024 13:44-0500 Heart rate 50 /min Tatiana Tram DPM Work Phone: [facility] 11-19-2024 13:44-0500 Systolic blood pressure 131 mm[Hg] Tatiana Tram DPM Work Phone: [facility] 03-23-2024 09:38-0400 Body temperature 97.7 [degF] Cheryl Spencer RN [facility] 03-23-2024 09:38-0400 Diastolic blood pressure 72 mm[Hg] Cherylgreyson Spencer RN [facility] 03-23-2024 09:38-0400 Heart rate 52 /min Cheryl Spencer RN [facility] 03-23-2024 09:38-0400 Respiratory rate 14 /min Cheryl Spencer RN [facility] 03-23-2024 09:38-0400 SaO2% (BldA) [Mass fraction] 99 % Cheryl Spencer RN [facility] 03-23-2024 09:38-0400 Systolic blood pressure 120 mm[Hg] Cherylgreyson CroninJohanna RN [facility] 03-19-2024 10:14-0400 Body temperature 98.2 [degF] Carson Bass RN [facility] 03-19-2024 10:14-0400 Diastolic blood pressure 80 mm[Hg] Carson Bass RN [facility] 03-19-2024 10:14-0400 Heart rate 89 /min Carson Bass RN [facility] 03-19-2024 10:14-0400 Respiratory rate 18 /min Carson Bass RN [facility] 03-19-2024 10:14-0400 SaO2% (BldA) [Mass fraction] 98 % Carson Bass RN [facility] 03-19-2024 10:14-0400 Systolic blood pressure 142 mm[Hg] Carson Bass RN [facility] 03-12-2024 10:47-0400 Body temperature 97.3 [degF] Cheryl Spencer RN [facility] 03-12-2024 10:47-0400 Diastolic blood pressure 72 mm[Hg] Cheryl Spencer RN [facility] 03-12-2024 10:47-0400 Heart rate 72 /min Cheryl Spencer RN [facility] 03-12-2024 10:47-0400 Respiratory rate 16 /min Cheryl Spencer RN [facility] 03-12-2024 10:47-0400 SaO2% (BldA) [Mass fraction] 93 % Cheryl Spencer RN [facility] 03-12-2024 10:47-0400 Systolic blood pressure 140 mm[Hg] Cheryl Spencer RN [facility] 03-06-2024 10:01-0400 Body temperature 97.5 [degF] Brando Costa PT [facility] 03-06-2024 10:01-0400 Diastolic blood pressure 80 mm[Hg] Brando Costa PT [facility] 03-06-2024 10:01-0400 Heart rate 53 /min Brando Costa PT [facility] 03-06-2024 10:01-0400 Respiratory rate 14 /min Brando Costa PT [facility] 03-06-2024 10:01-0400 SaO2% (BldA) [Mass fraction] 96 % Brando Costa PT [facility] 03-06-2024 10:01-0400 Systolic blood pressure 130 mm[Hg] Brando Costa PT [facility] 03-06-2024 09:59-0400 Body temperature 97.5 [degF] Cheryl Spencer RN [facility] 03-06-2024 09:59-0400 Diastolic blood pressure 80 mm[Hg] Cheryl Spencer RN [facility] 03-06-2024 09:59-0400 Heart rate 53 /min Cheryl Spencer RN [facility] 03-06-2024 09:59-0400 Respiratory rate 14 /min Cheryl Spencer RN [facility] 03-06-2024 09:59-0400 SaO2% (BldA) [Mass fraction] 96 % Cheryl Spencer RN [facility] 03-06-2024 09:59-0400 Systolic blood pressure 130 mm[Hg] Cheryl Spencer RN [facility] 03-05-2024 16:36-0400 Body temperature 97 [degF] Cheryl Spencer RN [facility] 03-05-2024 16:36-0400 Diastolic blood pressure 70 mm[Hg] Cheryl Spencer RN [facility] 03-05-2024 16:36-0400 Heart rate 50 /min Cheryl Spencer RN [facility] 03-05-2024 16:36-0400 Respiratory rate 14 /min Cheryl Spencer RN [facility] 03-05-2024 16:36-0400 SaO2% (BldA) [Mass fraction] 100 % Cheryl Spencer RN [facility] 03-05-2024 16:36-0400 Systolic blood pressure 124 mm[Hg] Cheryl Spencer RN [facility] 03-05-2024 10:12-0400 Body height 160.[address] Marietta Johnson Work Phone: 03-02-2024 10:08-0400 Body temperature 97.2 [degF] Lizbeth Dilgard [facility] 03-02-2024 10:08-0400 Diastolic blood pressure 84 mm[Hg] Lizbeth Dilgard [facility] 03-02-2024 10:08-0400 Heart rate 71 /min Lizbeth Dilgard [facility] 03-02-2024 10:08-0400 Respiratory rate 17 /min Lizbeth Dilgard [facility] 03-02-2024 10:08-0400 SaO2% (BldA) [Mass fraction] 98 % Lizbeth Dilgard [facility] 03-02-2024 10:08-0400 Systolic blood pressure 134 mm[Hg] Lizbeth Dilgard [employer] [facility] 02-29-2024 13:10-0400 Body temperature 97.3 [degF] Mini Raines RN [facility] 02-29-2024 13:10-0400 Diastolic blood pressure 82 mm[Hg] Mini Raines RN [facility] 02-29-2024 13:10-0400 Heart rate 95 /min Mini Raines RN [facility] 02-29-2024 13:10-0400 Respiratory rate 14 /min Mini Raines RN [facility] 02-29-2024 13:10-0400 SaO2% (BldA) [Mass fraction] 99 % Mini Raines RN [facility] 02-29-2024 13:10-0400 Systolic blood pressure 138 mm[Hg] Mini Raines RN [facility] 02-28-2024 12:35-0400 Body temperature 97.3 [degF] Lizbeth Dilgard [facility] 02-28-2024 12:35-0400 Diastolic blood pressure 66 mm[Hg] Lizbeth Dilgard [facility] 02-28-2024 12:35-0400 Heart rate 94 /min Lizbeth Dilgard [facility] 02-28-2024 12:35-0400 Respiratory rate 17 /min Lizbeth Dilgard [facility] 02-28-2024 12:35-0400 SaO2% (BldA) [Mass fraction] 97 % Lizbeth Dilgard [facility] 02-28-2024 12:35-0400 Systolic blood pressure 147 mm[Hg] Lizbeth Dilgard [facility] 02-27-2024 11:53-0400 Body temperature 97.7 [degF] Cheryl Spencer RN [facility] 02-27-2024 11:53-0400 Diastolic blood pressure 88 mm[Hg] Cheryl Spencer RN [facility] 02-27-2024 11:53-0400 Heart rate 50 /min Cheryl Spencer RN [facility] 02-27-2024 11:53-0400 Respiratory rate 14 /min Cheryl Spencer RN [facility] 02-27-2024 11:53-0400 SaO2% (BldA) [Mass fraction] 94 % Cheryl Spencer RN [facility] 02-27-2024 11:53-0400 Systolic blood pressure 150 mm[Hg] Cheryl Spencer RN [facility] 02-23-2024 13:10-0400 Body temperature 96.4 [degF] Lizbeth Dilgard [facility] 02-23-2024 13:10-0400 Diastolic blood pressure 74 mm[Hg] Lizbeth Dilgard [facility] 02-23-2024 13:10-0400 Heart rate 53 /min Lizbeth Dilgard [facility] 02-23-2024 13:10-0400 Respiratory rate 17 /min Lizbeth Dilgard [facility] 02-23-2024 13:10-0400 SaO2% (BldA) [Mass fraction] 97 % Lizbeth Dilgard [facility] 02-23-2024 13:10-0400 Systolic blood pressure 131 mm[Hg] Lizbeth Sandoval [employer] [facility] 02-21-2024 10:00-0400 Body temperature 98.2 [degF] Brando Costa PT [facility] 02-21-2024 10:00-0400 Diastolic blood pressure 82 mm[Hg] Brando Costa PT [facility] 02-21-2024 10:00-0400 Heart rate 56 /min Brando Costa PT [facility] 02-21-2024 10:00-0400 Respiratory rate 16 /min Brando Costa PT [facility] 02-21-2024 10:00-0400 SaO2% (BldA) [Mass fraction] 95 % Brando Costa PT [facility] 02-21-2024 10:00-0400 Systolic blood pressure 135 mm[Hg] Brando Costa PT [facility] 02-20-2024 14:20-0400 Body temperature 98.29 [degF] Cheryl Spencer RN [facility] 02-20-2024 14:20-0400 Diastolic blood pressure 62 mm[Hg] Cheryl Spencer RN [facility] 02-20-2024 14:20-0400 Heart rate 55 /min Cheryl Spencer RN [facility] 02-20-2024 14:20-0400 Respiratory rate 12 /min Cheryl Spencer RN [facility] 02-20-2024 14:20-0400 SaO2% (BldA) [Mass fraction] 94 % Cheryl Spencer RN [facility] 02-20-2024 14:20-0400 Systolic blood pressure 120 mm[Hg] Cheryl Spencer RN [facility] 02-14-2024 15:15-0400 Body temperature 97.3 [degF] Blanca Wilder RN [facility] 02-14-2024 15:15-0400 Diastolic blood pressure 84 mm[Hg] Blanca Wilder RN [facility] 02-14-2024 15:15-0400 Heart rate 55 /min Blanca Riverots RN [facility] 02-14-2024 15:15-0400 Respiratory rate 16 /min Blanca Stoots RN [facility] 02-14-2024 15:15-0400 SaO2% (BldA) [Mass fraction] 94 % Blanca Wilder RN [facility] 02-14-2024 15:15-0400 Systolic blood pressure 126 mm[Hg] Blanca Wilder RN [facility] 02-13-2024 14:46-0400 Diastolic blood pressure 52 mm[Hg] Dr. Marietta Johnson Work Phone: 02-13-2024 14:46-0400 Heart rate 78 /min Dr. Marietta Johnson Work Phone: 02-13-2024 14:46-0400 Systolic blood pressure 128 mm[Hg] Dr. Marietta Johnson Work Phone: 02-13-2024 14:12-0400 Body height 160.[address] Marietta Johnson Work Phone: 02-13-2024 14:12-0400 Body temperature 96.3 [degF] Dr. Marietta Johnson Work Phone: 02-13-2024 14:12-0400 Respiratory rate 16 /min Dr. Marietta Johnson Work Phone: 02-12-2024 14:12-0400 Body temperature 97.1 [degF] Dr. Marietta Johnson Work Phone: 02-12-2024 14:12-0400 Diastolic blood pressure 66 mm[Hg] Dr. Marietta Johnson Work Phone: 02-12-2024 14:12-0400 Heart rate 54 /min Dr. Marietta Johnson Work Phone: 02-12-2024 14:12-0400 Respiratory rate 16 /min Dr. Marietta Johnson Work Phone: 02-12-2024 14:12-0400 SaO2% (BldA) [Mass fraction] 94 % Dr. Marietta Johnson Work Phone: 02-12-2024 14:12-0400 Systolic blood pressure 126 mm[Hg] Dr. Marietta Johnson Work Phone: 02-11-2024 14:15-0400 Body temperature 98.2 [degF] Dr. Marietta Johnson Work Phone: 02-11-2024 14:15-0400 Diastolic blood pressure 52 mm[Hg] Dr. Marietta Johnson Work Phone: 02-11-2024 14:15-0400 Heart rate 55 /min Dr. Marietta Johnson Work Phone: 02-11-2024 14:15-0400 Respiratory rate 16 /min Dr. Marietta Johnson Work Phone: 02-11-2024 14:15-0400 SaO2% (BldA) [Mass fraction] 98 % Dr. Marietta Johnson Work Phone: 02-11-2024 14:15-0400 Systolic blood pressure 96 mm[Hg] Dr. Marietta Johnson Work Phone: 02-10-2024 15:34-0400 Body temperature 97.2 [degF] Dr. Marietta Johnson Work Phone: 02-10-2024 15:34-0400 Diastolic blood pressure 59 mm[Hg] Dr. Marietta Johnson Work Phone: 02-10-2024 15:34-0400 Heart rate 49 /min Dr. Marietta Johnson Work Phone: 02-10-2024 15:34-0400 Respiratory rate 16 /min Dr. Marietta Johnson Work Phone: 02-10-2024 15:34-0400 SaO2% (BldA) [Mass fraction] 100 % Dr. Marietta Johnson Work Phone: 02-10-2024 15:34-0400 Systolic blood pressure 141 mm[Hg] Dr. Marietta Johnson Work Phone: 02-10-2024 15:03-0400 Body height 160.[address] Marietta Johnson Work Phone: 02-10-2024 15:03-0400 Body mass index (BMI) [Ratio] 35.2 kg/m2 Dr. Marietta Johnson Work Phone: 02-10-2024 15:03-0400 Body weight 90.[address] Marietta Johnson Work Phone: 02-01-2024 15:34-0400 Body temperature 98.1 [degF] Dr. Marietta Johnson Work Phone: 02-01-2024 15:34-0400 Diastolic blood pressure 70 mm[Hg] Dr. Marietta Johnson Work Phone: 02-01-2024 15:34-0400 Heart rate 67 /min Dr. Marietta Johnson Work Phone: 02-01-2024 15:34-0400 Respiratory rate 16 /min Dr. Marietta Johnson Work Phone: 02-01-2024 15:34-0400 SaO2% (BldA) [Mass fraction] 95 % Dr. Marietta Johnson Work Phone: 02-01-2024 15:34-0400 Systolic blood pressure 119 mm[Hg] Dr. Marietta Johnson Work Phone: 02-01-2024 10:16-0400 Body height 160.[address] Marietta Johnson Work Phone: 02-01-2024 10:16-0400 Body mass index (BMI) [Ratio] 34 kg/m2 Dr. Marietta Johnson Work Phone: 02-01-2024 10:16-0400 Body weight [address] Marietta Johnson Work Phone: 01-24-2024 15:13-0400 Body mass index (BMI) [Ratio] 35.2 kg/m2 Dr. Marietta Johnson Work Phone: 01-24-2024 15:13-0400 Body temperature 97.8 [degF] Dr. Marietta Johnson Work Phone: 01-24-2024 15:13-0400 Body weight 90.[address] Marietta Johnson Work Phone: 01-24-2024 15:13-0400 Diastolic blood pressure 78 mm[Hg] Dr. Marietta Johnson Work Phone: 01-24-2024 15:13-0400 Heart rate 67 /min Dr. Marietta Johnson Work Phone: 01-24-2024 15:13-0400 Respiratory rate 12 /min Dr. Marietta Johnson Work Phone: 01-24-2024 15:13-0400 SaO2% (BldA) [Mass fraction] 98 % Dr. Marietta Johnson Work Phone: 01-24-2024 15:13-0400 Systolic blood pressure 122 mm[Hg] Dr. Marietta Johnson Work Phone: 01-20-2024 15:10-0500 Body height 160 cm Susan Buck APRN.TREASURY CONSULTANT Work Phone: [facility] 01-20-2024 15:10-0500 Body weight 91.67 kg Susan Buck AIRWAYS CONTROL SPECIALIST.TREASURY CONSULTANT Work Phone: [facility] 01-20-2024 15:10-0500 Diastolic blood pressure 66 mm[Hg] Susan Buck APRN.TREASURY CONSULTANT Work Phone: [facility] 01-20-2024 15:10-0500 Heart rate 62 /min Susan Buck APRN.TREASURY CONSULTANT Work Phone: [facility] 01-20-2024 15:10-0500 Respiratory rate 18 /min Susan Buck AIRWAYS CONTROL SPECIALIST.TREASUR[employer] CONSULTANT Work Phone: [facility] 01-20-2024 15:10-0500 SaO2% (BldA) [Mass fraction] 95 % Susan Buck [employer]WAYS CONTROL SPECIALIST.TREASUR[employer] CONSULTANT Work Phone: [facility] 01-20-2024 15:10-0500 Systolic blood pressure 98 mm[Hg] Susan Buck [employer]WAYS CONTROL SPECIALIST.TREASURY CONSULTANT Work Phone: [facility] 12-20-2023 16:18-0500 Body height 160.[address] Marietta Johnson Work Phone: 12-15-2023 13:23-0500 Body mass index (BMI) [Ratio] 34.5 kg/m2 Dr. Marietta Johnson Work Phone: 12-15-2023 13:23-0500 Body weight 88.[address] Marietta Johnson Work Phone: 10-24-2023 10:32-0500 Body height 160 cm Ale Carrion [employer]WAYS CONTROL SPECIALIST.TREASURY CONSULTANT Work Phone: [facility] 10-24-2023 10:32-0500 Body weight 89.22 kg Ale Carrion APRN.TREASURY CONSULTANT Work Phone: [facility] 10-24-2023 10:32-0500 Diastolic blood pressure 67 mm[Hg] Ale Carrion APRN.TREASURY CONSULTANT Work Phone: [facility] 10-24-2023 10:32-0500 Heart rate 57 /min Ale Carrion APRN.TREASURY CONSULTANT Work Phone: [facility] 10-24-2023 10:32-0500 Respiratory rate 18 /min Ale Carrion APRN.TREASURY CONSULTANT Work Phone: [facility] 10-24-2023 10:32-0500 Systolic blood pressure 112 mm[Hg] Ale Carrion APRN.TREASURY CONSULTANT Work Phone: [facility] 09-26-2023 14:27-0500 Body temperature 97.9 [degF] [facility] Work Phone: [facility] 09-26-2023 14:27-0500 Diastolic blood pressure 60 mm[Hg] [facility] Work Phone: [facility] 09-26-2023 14:27-0500 Heart rate 52 /min [facility] Work Phone: [facility] 09-26-2023 14:27-0500 Respiratory rate 18 /min [facility] Work Phone: [facility] 09-26-2023 14:27-0500 SaO2% (BldA) [Mass fraction] 98 % [facility] Work Phone: [facility] 09-26-2023 14:27-0500 Systolic blood pressure 114 mm[Hg] [facility] Work Phone: [facility] 09-19-2023 13:21-0500 Body temperature 98.71 [degF] [facility] Work Phone: [facility] 09-19-2023 13:21-0500 Diastolic blood pressure 59 mm[Hg] [facility] Work Phone: [facility] 09-19-2023 13:21-0500 Heart rate 57 /min [facility] Work Phone: [facility] 09-19-2023 13:21-0500 Respiratory rate 18 /min [facility] Work Phone: [facility] 09-19-2023 13:21-0500 Systolic blood pressure 108 mm[Hg] [facility] Work Phone: [facility] 08-01-2023 09:49-0400 Body height 160.7 cm Liliya Lara MD Work Phone: [facility] 08-01-2023 09:49-0400 Body temperature 98.49 [degF] Liliya Lara MD Work Phone: [facility] 08-01-2023 09:49-0400 Diastolic blood pressure 68 mm[Hg] Liliya Lara MD Work Phone: [facility] 08-01-2023 09:49-0400 Heart rate 49 /min Liliya Lara MD Work Phone: [facility] 08-01-2023 09:49-0400 Respiratory rate 16 /min Liliya Lara MD Work Phone: [facility] 08-01-2023 09:49-0400 SaO2% (BldA) [Mass fraction] 95 % Liliya Lara MD Work Phone: [facility] 08-01-2023 09:49-0400 Systolic blood pressure 130 mm[Hg] Liliya Lara MD Work Phone: [facility] 06-22-2023 23:11-0400 Diastolic blood pressure 90 mm[Hg] Liliya Mariza [facility] 06-22-2023 23:11-0400 Heart rate 58 /min Liliya Mariza [facility] 06-22-2023 23:11-0400 Respiratory rate 16 /min Liliya Mariza [facility] 06-22-2023 23:11-0400 SaO2% (BldA) [Mass fraction] 97 % Liliya Mariza [facility] 06-22-2023 23:11-0400 Systolic blood pressure 107 mm[Hg] Liliya Mariza [facility] 06-22-2023 15:03-0400 Body height 160 cm Liliya Mariza [facility] 06-22-2023 15:03-0400 Body temperature 97.88 [degF] Liliya Mariza [facility] 06-22-2023 15:03-0400 Body weight 84.5 kg Liliya Mariza [facility] 06-21-2023 19:51-0400 Body height 160 cm Liliya Mariza [facility] 06-21-2023 19:51-0400 Body temperature 98.06 [degF] Liliya Mariza [facility] 06-21-2023 19:51-0400 Body weight 84 kg Liliya Mariza [facility] 06-21-2023 19:51-0400 Diastolic blood pressure 85 mm[Hg] Liliya Mariza [facility] 06-21-2023 19:51-0400 Heart rate 58 /min Liliya Mariza [facility] 06-21-2023 19:51-0400 Respiratory rate 18 /min Liliya Lara [facility] 06-21-2023 19:51-0400 SaO2% (BldA) [Mass fraction] 98 % Liliya Lara [facility] 06-21-2023 19:51-0400 Systolic blood pressure 154 mm[Hg] Liliya Lara [facility] 06-21-2023 16:54-0400 Body height 160.7 cm Liliya Lara MD Work Phone: [facility] 06-21-2023 16:54-0400 Body temperature 98.01 [degF] Liliya Lara MD Work Phone: [facility] 06-21-2023 16:54-0400 Diastolic blood pressure 75 mm[Hg] Liliya Lara MD Work Phone: [facility] 06-21-2023 16:54-0400 Heart rate 56 /min Liliya Lara MD Work Phone: [facility] 06-21-2023 16:54-0400 Respiratory rate 16 /min Liliya Lara MD Work Phone: [facility] 06-21-2023 16:54-0400 SaO2% (BldA) [Mass fraction] 97 % Liliya Lara MD Work Phone: [facility] 06-21-2023 16:54-0400 Systolic blood pressure 137 mm[Hg] Liliya Lara MD Work Phone: [facility] 05-16-2023 18:09-0400 Body temperature 98.49 [degF] [facility] 05-16-2023 18:09-0400 Diastolic blood pressure 55 mm[Hg] [facility] 05-16-2023 18:09-0400 Heart rate 60 /min [facility] 05-16-2023 18:09-0400 Respiratory rate 17 /min [facility] 05-16-2023 18:09-0400 SaO2% (BldA) [Mass fraction] 99 % [facility] 05-16-2023 18:09-0400 Systolic blood pressure 118 mm[Hg] [facility] 05-04-2023 18:44-0400 Body height 167.6 cm Liliya Lara MD Work Phone: [facility] 05-04-2023 18:44-0400 Body mass index (BMI) [Ratio] 30.34 kg/m2 iLliya Lara MD Work Phone: [facility] 05-04-2023 18:44-0400 Body temperature 98.2 [degF] Liliya Lara MD Work Phone: [facility] 05-04-2023 18:44-0400 Body weight 85.28 kg Liliya Lara MD Work Phone: [facility] 05-04-2023 18:44-0400 Diastolic blood pressure 66 mm[Hg] Liliya Lara MD Work Phone: [facility] 05-04-2023 18:44-0400 Heart rate 97 /min Liliya Lara MD Work Phone: [facility] 05-04-2023 18:44-0400 Respiratory rate 16 /min Liliya Lara MD Work Phone: [facility] 05-04-2023 18:44-0400 SaO2% (BldA) [Mass fraction] 98 % Liliya Lara MD Work Phone: [facility] 05-04-2023 18:44-0400 Systolic blood pressure 96 mm[Hg] Liliya Lara MD Work Phone: [facility] 04-28-2023 09:36-0400 Body height 167.6 cm Susan Buck APRN.TREASURY CONSULTANT Work Phone: [facility] 04-28-2023 09:36-0400 Body weight 85.28 kg Susan Buck APRN.TREASURY CONSULTANT Work Phone: [facility] 04-28-2023 09:36-0400 Diastolic blood pressure 62 mm[Hg] Susan Buck AIRWAYS CONTROL SPECIALIST.TREASURY CONSULTANT Work Phone: [facility] 04-28-2023 09:36-0400 Heart rate 53 /min Susan Buck AIRWAYS CONTROL SPECIALIST.TREASURY CONSULTANT Work Phone: [facility] 04-28-2023 09:36-0400 Respiratory rate 18 /min Susan Buck AIRWAYS CONTROL SPECIALIST.TREASURY CONSULTANT Work Phone: [facility] 04-28-2023 09:36-0400 SaO2% (BldA) [Mass fraction] 98 % Susan Buck AIRWAYS CONTROL SPECIALIST.TREASURY CONSULTANT Work Phone: [facility] 04-28-2023 09:36-0400 Systolic blood pressure 128 mm[Hg] Susan Buck AIRWAYS CONTROL SPECIALIST.TREASURY CONSULTANT Work Phone: [facility] 02-23-2023 07:35-0400 Body height 167.6 cm Liliya Lara MD Work Phone: [facility] 02-23-2023 07:35-0400 Body temperature 98.4 [degF] Liliya Lara MD Work Phone: [facility] 02-23-2023 07:35-0400 Diastolic blood pressure 82 mm[Hg] Liliya Lara MD Work Phone: [facility] 02-23-2023 07:35-0400 Heart rate 58 /min Liliya Lara MD Work Phone: [facility] 02-23-2023 07:35-0400 Respiratory rate 16 /min Liliya Lara MD Work Phone: [facility] 02-23-2023 07:35-0400 SaO2% (BldA) [Mass fraction] 94 % Liliya Lara MD Work Phone: [facility] 02-23-2023 07:35-0400 Systolic blood pressure 124 mm[Hg] Liliya Lara MD Work Phone: [facility] 02-14-2023 23:12-0400 Diastolic blood pressure 72 mm[Hg] Albina Etienne Other Phone: [facility] 02-14-2023 23:12-0400 Heart rate 54 /min Albina Etienne Other Phone: [facility] 02-14-2023 23:12-0400 Respiratory rate 18 /min Albina Distel Other Phone: [facility] 02-14-2023 23:12-0400 SaO2% (BldA) [Mass fraction] 98 % Albina Distel Other Phone: [facility] 02-14-2023 23:12-0400 Systolic blood pressure 146 mm[Hg] Albina Distel Other Phone: [facility] 02-14-2023 20:13-0400 Body height 167.6 cm Albina Distel Other Phone: [facility] 02-14-2023 20:13-0400 Body temperature 97.88 [degF] Albina Distel Other Phone: [facility] 02-14-2023 20:13-0400 Body weight 81.8 kg Albina Distel Other Phone: [facility] 01-17-2023 18:18-0500 Body height 167.6 cm Liliya Lara MD Work Phone: [facility] 01-17-2023 18:18-0500 Body mass index (BMI) [Ratio] 29.05 kg/m2 Liliya Lara MD Work Phone: [facility] 01-17-2023 18:18-0500 Body temperature 98.01 [degF] Liliya Lara MD Work Phone: [facility] 01-17-2023 18:18-0500 Body weight 81.65 kg Liliya Lara MD Work Phone: [facility] 01-17-2023 18:18-0500 Diastolic blood pressure 79 mm[Hg] Liliya Lara MD Work Phone: [facility] 01-17-2023 18:18-0500 Heart rate 63 /min Liliya Lara MD Work Phone: [facility] 01-17-2023 18:18-0500 Respiratory rate 16 /min Liliya Lara MD Work Phone: [facility] 01-17-2023 18:18-0500 SaO2% (BldA) [Mass fraction] 99 % Liliya Lara MD Work Phone: [facility] 01-17-2023 18:18-0500 Systolic blood pressure 139 mm[Hg] Liliya Lara MD Work Phone: [facility] 11-03-2022 09:29-0500 Body height 167.6 cm Guevara Espino MD Work Phone: [facility] 11-03-2022 09:29-0500 Body weight 80.29 kg Guevara Espino MD Work Phone: [facility] 11-03-2022 09:29-0500 Diastolic blood pressure 78 mm[Hg] Guevara Espino MD Work Phone: [facility] 11-03-2022 09:29-0500 Heart rate 69 /min Guevara Espino MD Work Phone: [facility] 11-03-2022 09:29-0500 Respiratory rate 18 /min Guevara Espino MD Work Phone: [facility] 11-03-2022 09:29-0500 SaO2% (BldA) [Mass fraction] 98 % Guevara Espino MD Work Phone: [facility] 11-03-2022 09:29-0500 Systolic blood pressure 122 mm[Hg] Guevara Espino MD Work Phone: [facility] 10-26-2022 10:28-0500 Body height 167.6 cm Liliya Lara MD Work Phone: [facility] 10-26-2022 10:28-0500 Body mass index (BMI) [Ratio] 27.44 kg/m2 Liliya Lara MD Work Phone: [facility] 10-26-2022 10:28-0500 Body temperature 98.4 [degF] Liliya Lara MD Work Phone: [facility] 10-26-2022 10:28-0500 Body weight 77.11 kg Liliya Lara MD Work Phone: [facility] 10-26-2022 10:28-0500 Diastolic blood pressure 80 mm[Hg] Liliya Lara MD Work Phone: [facility] 10-26-2022 10:28-0500 Heart rate 64 /min Liilya Lara MD Work Phone: [facility] 10-26-2022 10:28-0500 Respiratory rate 16 /min Liliya Lara MD Work Phone: [facility] 10-26-2022 10:28-0500 SaO2% (BldA) [Mass fraction] 98 % Liliya Lara MD Work Phone: [facility] 10-26-2022 10:28-0500 Systolic blood pressure 119 mm[Hg] Liliya Lara MD Work Phone: [facility] 08-12-2022 10:02-0400 Body height 167.6 cm Guevara Espino MD Work Phone: [facility] 08-12-2022 10:02-0400 Body weight 79.38 kg Guevara Espino MD Work Phone: [facility] 08-12-2022 10:02-0400 Diastolic blood pressure 76 mm[Hg] Guevara Espino MD Work Phone: [facility] 08-12-2022 10:02-0400 Heart rate 57 /min Guevara Espino MD Work Phone: [facility] 08-12-2022 10:02-0400 SaO2% (BldA) [Mass fraction] 97 % Guevara Espino MD Work Phone: [facility] 08-12-2022 10:02-0400 Systolic blood pressure 113 mm[Hg] Guevara Espino MD Work Phone: [facility] 07-21-2022 16:43-0400 Body height 167.6 cm Liliya Lara MD Work Phone: [facility] 07-21-2022 16:43-0400 Body mass index (BMI) [Ratio] 27.44 kg/m2 Liliya Lara MD Work Phone: [facility] 07-21-2022 16:43-0400 Body temperature 97.39 [degF] Liliya Lara MD Work Phone: [facility] 07-21-2022 16:43-0400 Body weight 77.11 kg Liliya Lara MD Work Phone: [facility] 07-21-2022 16:43-0400 Diastolic blood pressure 73 mm[Hg] Liliya Lara MD Work Phone: [facility] 07-21-2022 16:43-0400 Heart rate 60 /min Liliya Lara MD Work Phone: [facility] 07-21-2022 16:43-0400 Respiratory rate 16 /min Liliya Lara MD Work Phone: [facility] 07-21-2022 16:43-0400 SaO2% (BldA) [Mass fraction] 97 % Liliya Lara MD Work Phone: [facility] 07-21-2022 16:43-0400 Systolic blood pressure 114 mm[Hg] Liliya Lara MD Work Phone: [facility] 05-25-2022 06:49-0400 Body height 167.6 cm Liliya Lara MD Work Phone: [facility] 05-25-2022 06:49-0400 Body mass index (BMI) [Ratio] 26.63 kg/m2 Liliya Lara MD Work Phone: [facility] 05-25-2022 06:49-0400 Body temperature 98.2 [degF] Liliya Lara MD Work Phone: [facility] 05-25-2022 06:49-0400 Body weight 74.84 kg Liliya Lara MD Work Phone: [facility] 05-25-2022 06:49-0400 Diastolic blood pressure 81 mm[Hg] Liliya Lara MD Work Phone: [facility] 05-25-2022 06:49-0400 Heart rate 58 /min Liliya Lara MD Work Phone: [facility] 05-25-2022 06:49-0400 Respiratory rate 16 /min Liliya Lara MD Work Phone: [facility] 05-25-2022 06:49-0400 SaO2% (BldA) [Mass fraction] 96 % Liliya Lara MD Work Phone: [facility] 05-25-2022 06:49-0400 Systolic blood pressure 129 mm[Hg] Liliya Lara MD Work Phone: [facility] 04-20-2022 16:08-0400 Body height 167.6 cm Liliya Lara MD Work Phone: [facility] 04-20-2022 16:08-0400 Body mass index (BMI) [Ratio] 27.44 kg/m2 Liliya Lara MD Work Phone: [facility] 04-20-2022 16:08-0400 Body temperature 97 [degF] Liliya Lara MD Work Phone: [facility] 04-20-2022 16:08-0400 Body weight 77.11 kg Liliya Lara MD Work Phone: [facility] 04-20-2022 16:08-0400 Diastolic blood pressure 65 mm[Hg] Liliya Lara MD Work Phone: [facility] 04-20-2022 16:08-0400 Heart rate 47 /min Liliya Lara MD Work Phone: [facility] 04-20-2022 16:08-0400 Respiratory rate 16 /min Liliya Lara MD Work Phone: [facility] 04-20-2022 16:08-0400 SaO2% (BldA) [Mass fraction] 96 % Liliya Lara MD Work Phone: [facility] 06-07-2022 16:08-0400 Systolic blood pressure 112 mm[Hg] Liliya Lara MD Work Phone: [facility] 04-10-2022 22:08-0400 Diastolic blood pressure 80 mm[Hg] Albina Distel Other Phone: [facility] 04-10-2022 22:08-0400 Heart rate 87 /min Albina Distel Other Phone: [facility] 04-10-2022 22:08-0400 Respiratory rate 16 /min Albina Distel Other Phone: [facility] 04-10-2022 22:08-0400 SaO2% (BldA) [Mass fraction] 98 % Albina Distel Other Phone: [facility] 04-10-2022 22:08-0400 Systolic blood pressure 120 mm[Hg] Albina Distel Other Phone: [facility] 04-10-2022 20:59-0400 Body height 167.6 cm Albina Distel Other Phone: [facility] 04-10-2022 20:59-0400 Body temperature 97.16 [degF] Albina Distel Other Phone: [facility] 04-10-2022 20:59-0400 Body weight 76.4 kg Albina Distel Other Phone: [facility] 02-23-2022 08:58-0400 Body temperature 98.01 [degF] Shyla Francis RN [facility] 01-19-2022 15:48-0500 Body height 167.6 cm Liliya Lara MD Work Phone: [facility] 01-19-2022 15:48-0500 Body mass index (BMI) [Ratio] 27.6 kg/m2 Liliya Lara MD Work Phone: [facility] 01-19-2022 15:48-0500 Body temperature 98.2 [degF] Liliya Lara MD Work Phone: [facility] 01-19-2022 15:48-0500 Body weight 77.56 kg Liliya Lara MD Work Phone: [facility] 01-19-2022 15:48-0500 Diastolic blood pressure 71 mm[Hg] Liliya Lara MD Work Phone: [facility] 01-19-2022 15:48-0500 Heart rate 57 /min Liliya Lara MD Work Phone: [facility] 01-19-2022 15:48-0500 Respiratory rate 16 /min Liliya Lara MD Work Phone: [facility] 01-19-2022 15:48-0500 SaO2% (BldA) [Mass fraction] 97 % Liliya Lara MD Work Phone: [facility] 01-19-2022 15:48-0500 Systolic blood pressure 109 mm[Hg] Liliya Lara MD Work Phone: [facility] 01-13-2022 09:48-0500 Body height 167.6 cm Liliya Lara MD Work Phone: [facility] 01-13-2022 09:48-0500 Body mass index (BMI) [Ratio] 27.92 kg/m2 Liliya Lara MD Work Phone: [facility] 01-13-2022 09:48-0500 Body temperature 97.59 [degF] Liliya Lara MD Work Phone: [facility] 01-13-2022 09:48-0500 Body weight 78.47 kg Liliya Lara MD Work Phone: [facility] 01-13-2022 09:48-0500 Diastolic blood pressure 75 mm[Hg] Liliya Lara MD Work Phone: [facility] 01-13-2022 09:48-0500 Heart rate 56 /min Liliya Lara MD Work Phone: [facility] 01-13-2022 09:48-0500 Respiratory rate 16 /min Liliya Lara MD Work Phone: [facility] 01-13-2022 09:48-0500 SaO2% (BldA) [Mass fraction] 97 % Liliya Lara MD Work Phone: [facility] 01-13-2022 09:48-0500 Systolic blood pressure 112 mm[Hg] Liliya Lara MD Work Phone: [facility] 12-29-2021 15:51-0500 Body height 167.6 cm Liliya Lara MD Work Phone: [facility] 12-29-2021 15:51-0500 Body mass index (BMI) [Ratio] 27.44 kg/m2 Liliya Lara MD Work Phone: [facility] 12-29-2021 15:51-0500 Body temperature 98.1 [degF] Liliya Lara MD Work Phone: [facility] 12-29-2021 15:51-0500 Body weight 77.11 kg Liliya Lara MD Work Phone: [facility] 12-29-2021 15:51-0500 Diastolic blood pressure 69 mm[Hg] Liliya Lara MD Work Phone: [facility] 12-29-2021 15:51-0500 Heart rate 50 /min Liliya Lara MD Work Phone: [facility] 12-29-2021 15:51-0500 Respiratory rate 16 /min Lilyia Lara MD Work Phone: [facility] 12-29-2021 15:51-0500 SaO2% (BldA) [Mass fraction] 98 % Liliya Lara MD Work Phone: [facility] 12-29-2021 15:51-0500 Systolic blood pressure 107 mm[Hg] Liliya Lara MD Work Phone: [facility] 12-15-2021 18:24-0500 Body height 167.6 cm Liliya Lara MD Work Phone: [facility] 12-15-2021 18:24-0500 Body mass index (BMI) [Ratio] 27.63 kg/m2 Liliya Lara MD Work Phone: [facility] 12-15-2021 18:24-0500 Body temperature 97.59 [degF] Liliya Lara MD Work Phone: [facility] 12-15-2021 18:24-0500 Body weight 77.66 kg Liliya Lara MD Work Phone: [facility] 12-15-2021 18:24-0500 Diastolic blood pressure 82 mm[Hg] Liliya Lara MD Work Phone: [facility] 12-15-2021 18:24-0500 Heart rate 63 /min Liliya Lara MD Work Phone: [facility] 12-15-2021 18:24-0500 Respiratory rate 18 /min Liliya Lara MD Work Phone: [facility] 12-15-2021 18:24-0500 SaO2% (BldA) [Mass fraction] 96 % Liliya Lara MD Work Phone: [facility] 12-15-2021 18:24-0500 Systolic blood pressure 130 mm[Hg] Liliya Lara MD Work Phone: [facility] 11-03-2021 15:18-0500 Body height 167.6 cm Liliya Lara MD Work Phone: [facility] 11-03-2021 15:18-0500 Body mass index (BMI) [Ratio] 26.79 kg/m2 Liliya Lara MD Work Phone: [facility] 11-03-2021 15:18-0500 Body temperature 98.4 [degF] Liliya Lara MD Work Phone: [facility] 11-03-2021 15:18-0500 Body weight 75.3 kg Liliya Lara MD Work Phone: [facility] 11-03-2021 15:18-0500 Diastolic blood pressure 60 mm[Hg] Liliya Lara MD Work Phone: [facility] 11-03-2021 15:18-0500 Heart rate 61 /min Liliya Lara MD Work Phone: [facility] 11-03-2021 15:18-0500 Respiratory rate 16 /min Liliya Lara MD Work Phone: [facility] 11-03-2021 15:18-0500 SaO2% (BldA) [Mass fraction] 96 % Liliya Lara MD Work Phone: [facility] 11-03-2021 15:18-0500 Systolic blood pressure 95 mm[Hg] Liliya Lara MD Work Phone: [facility] 02-17-2021 13:14-0400 BMI (Body Mass Index) 27.26 kg/m2 [facility] 02-17-2021 13:14-0400 Body Temperature 98.29 [degF] [facility] 02-17-2021 13:14-0400 Body weight 76.61 kg [facility] 02-17-2021 13:14-0400 BP Diastolic 66 mm[Hg] [facility] 02-17-2021 13:14-0400 BP Systolic 116 mm[Hg] [facility] 02-17-2021 13:14-0400 Height 167.6 cm [facility] 02-17-2021 13:14-0400 Pulse (Heart Rate) 62 /min [facility] 02-17-2021 13:14-0400 Pulse Oximetry 97 % [facility] 02-17-2021 13:14-0400 Respiratory Rate 16 /min [facility] 12-25-2020 14:04-0500 BMI (Body Mass Index) 27.42 kg/m2 [facility] 12-25-2020 14:04-0500 Body Temperature 98.2 [degF] [facility] 12-25-2020 14:04-0500 Body weight 77.07 kg [facility] 12-25-2020 14:04-0500 BP Diastolic 68 mm[Hg] [facility] 12-25-2020 14:04-0500 BP Systolic 105 mm[Hg] [facility] 12-25-2020 14:04-0500 Height 167.6 cm [facility] 12-25-2020 14:04-0500 Pulse (Heart Rate) 65 /min [facility] 12-25-2020 14:04-0500 Pulse Oximetry 95 % [facility] 12-25-2020 14:04-0500 Respiratory Rate 16 /min [facility] 01-03-2020 16:49-0500 BMI (Body Mass Index) 25.66 kg/m2 Claus Avery [facility] Work Phone: 01-03-2020 16:49-0500 Body weight 72.12 kg Claus Avery [facility] Work Phone: 01-03-2020 16:49-0500 BP Diastolic 66 mm[Hg] Claus Avery [facility] Work Phone: 01-03-2020 16:49-0500 BP Systolic 116 mm[Hg] Claus Avery [facility] Work Phone: 01-03-2020 16:49-0500 BSA (Body Surface Area) 1.81 m2 Claus Avery [facility] Work Phone: 01-03-2020 16:49-0500 Height 167.64 cm Claus Avery [facility] Work Phone: Encounters Encounter Date Encounter Type Care Provider Facility Start: 07-03-2025 ambulatory Marietta Rabago acility: Start: 06-27-2025 ambulatory Marietta Rabago acility: Start: 06-19-2025 End: 06-19-2025 ambulatory ABDELRAHMAN CONRAD Facility:[facility] Start: 06-18-2025 End: 06-18-[address] Marietta Johnson DO -Outpatient Breast Imaging Work Phone: Start: 06-18-2025 End: 06-18-2025 ambulatory Marietta Johnson Facility: Start: 06-06-2025 End: 06-06-2025 Admission to same day surgery center Crissy Isabella Zavala DO Work Phone: Vascular Surgery Comment on above: Foley Start: 06-06-2025 End: 06-06-2025 ambulatory Crissy Zavala DO Work Phone: Vascular Surgery Start: 05-22-2025 End: 05-29-2025 Telephone encounter aNkia Bull MD Work Phone: Plastic Surgery Comment on above: Nurse Triage Call (L ymphedema triage) Orders (Compression wraps and pump orders ) Start: 05-21-2025 End: 05-21-2025 Office outpatient visit 15 minutes CLYDE GUZMAN Work Phone: [facility] Comment on above: Lymphedema (Primary Dx); Peripheral edema; Chronic pain of right ankle; Right foot pain; Bilateral foot pain; Callus of foot Start: 05-21-2025 End: [facility] Start: 05-15-2025 End: 05-15-2025 Telephone encounter Nakia Bull MD Work Phone: Plastic Surgery Comment on above: Nurse Triage Call (L ymphedema triage attempt #1) Start: 05-14-2025 End: 05-14-2025 Patient encounter procedure Crissy Zavala DO Work Phone: Vascular Surgery Comment on above: Secondary lymphedema (Primary Dx); Venous (peripheral) insufficiency Start: 05-14-2025 End: 05-14-2025 ambulatory CRISSY ZAVALA Facility:[facility] Start: 05-07-2025 End: 05-07-2025 Telephone encounter Marietta Johnson DO Work Phone: NOC Comment on above: Appointment Start: 04-22-2025 End: 05-08-2025 Admission to same day surgery center Crissy Zavala DO Work Phone: Vascular Surgery Comment on above: 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 Surgeon Start: 04-22-2025 End: 05-08-2025 ambulatory Crissy Zavala DO Work Phone: Vascular Surgery Start: 04-16-2025 End: 04-16-2025 Patient encounter procedure Crissy Zavala DO Work Phone: Vascular Surgery Comment on above: Secondary lymphedema (Primary Dx); Venous (peripheral) insufficiency Start: 04-16-2025 End: 04-16-2025 ambulatory CRISSY ZAVALA Facility:[facility] Start: 04-11-2025 End: 04-11-2025 ambulatory CRISSY ZAVALA Facility:[facility] Start: 04-08-2025 End: 04-09-2025 Admission to same day surgery center Crissy Zavala DO Work Phone: Vascular Surgery Comment on above: Compression stocking s Start: 04-08-2025 End: 04-09-2025 ambulatory Crissy Zavala DO Work Phone: Vascular Surgery Start: 03-19-2025 End: 03-19-2025 Patient encounter procedure Crissy Zavala DO Work Phone: Vascular Surgery Comment on above: Secondary lymphedema (Primary Dx); PAD (peripheral artery disease); Venous (peripheral) insufficiency Start: 03-19-2025 End: 03-19-2025 ambulatory CRISSY ZAVALA Facility:[facility] Start: 02-25-2025 End: 02-28-2025 Telephone encounter Susan Buck APRN.TREASURY CONSULTANT Work Phone: [facility] Comment on above: Results Start: 02-20-2025 Non-patient / Non-visit [facility]. Shen chirinos [facility] Start: 02-20-2025 End: 02-21-2025 ambulatory Susan Buck AIRWAYS CONTROL SPECIALIST.TREASURY CONSULTANT Work Phone: [facility] Start: 02-20-2025 End: 02-21-2025 Patient encounter procedure Susan Buck AIRWAYS CONTROL SPECIALIST.TREASURY CONSULTANT Work Phone: [facility] Comment on above: Tests Start: 02-20-2025 End: 02-20-2025 ambulatory Marietta Johnson Facility: Start: 02-11-2025 End: 02-12-2025 ambulatory Susan Buck AIRWAYS CONTROL SPECIALIST.TREASURY CONSULTANT Work Phone: [facility] Start: 02-11-2025 End: 02-12-2025 Patient encounter procedure Susan Buck AIRWAYS CONTROL SPECIALIST.TREASURY CONSULTANT Work Phone: [facility] Comment on above: Tests Start: 01-29-2025 End: 01-29-2025 Patient encounter procedure Susan Buck AIRWAYS CONTROL SPECIALIST.TREASURY CONSULTANT Work Phone: [facility] Comment on above: S/P CABG x 3 (Primar y Dx); Swelling of limb; SOB (shortness of breath); Primary hypertension Start: 01-29-2025 End: 01-29-2025 ambulatory SUSAN BUCK Facility:[facility] Start: 01-22-2025 End: 01-22-2025 Office outpatient visit 15 minutes CLYDE Tena DPM Work Phone: [facility] Comment on above: Arthritis of right f oot (Primary Dx); Chronic pain of right ankle; Arthritis of right ankle; Right foot pain Start: 01-22-2025 End: 01-26-2025 ambulatory AJIT TENA II [facility] Ambulatory Start: 01-15-2025 End: 01-15-2025 Subsequent hospital visit by physician Arnold X-Ray Fluoro 1 [facility] Comment on above: Pain in right ankle and joints of right foot Start: 01-15-2025 End: 01-15-2025 ambulatory MARIETTA JOHNSON [facility] Start: 01-01-2025 End: 01-01-2025 Office outpatient visit 10 minutes Tatiana Hernandez DPM Work Phone: [facility] Comment on above: Arthritis of right a nkle (Primary Dx); Chronic pain of right ankle Start: 01-01-2025 End: 01-01-2025 ambulatory MARIETTA JOHNSON [facility] Ambulatory Start: 12-12-2024 End: 12-12-2024 Office outpatient visit 15 minutes Tatianagreyson Hernandez DPM Work Phone: [facility] Comment on above: Arthritis of right f oot (Primary Dx); Right foot pain Start: 12-12-2024 End: 12-16-2024 ambulatory MARIETTA JOHNSON [facility] Ambulatory Start: 11-19-2024 End: 11-19-2024 Office outpatient visit 10 minutes Tatiana Hernandez DPM Work Phone: [facility] Comment on above: Acquired plantar por okeratosis (Primary Dx); Bilateral foot pain Start: 11-19-2024 End: 11-19-2024 ambulatory MARIETTA JOHNSON [facility] Ambulatory Start: 10-17-2024 End: 10-17-2024 ambulatory Marietta Jayne Johnson Facility: Start: 08-13-2024 End: 08-17-2024 ambulatory MARIETTA JOHNSON [facility] Ambulatory Start: 07-05-2024 End: 07-05-2024 ambulatory Marietta Jayne Johnson Facility: Start: 06-27-2024 End: 06-27-2024 ambulatory Marietta Johnson Facility[facility] Start: 06-27-2024 End: 06-27-2024 ambulatory Marietta Jayne Johnson Facility: Start: 06-07-2024 End: 06-07-2024 [facility] Start: 03-31-[facility]24 End: 03-31-2024 Subsequent hospital visit by physician Arnold X-Ray Fluoro 1 [facility] Comment on above: Diarrhea, unspecifie d Start: 03-31-2024 End: 03-31-2024 ambulatory MARIETTA Gibbs [facility] Start: 03-23-2024 End: 03-23-2024 Home visit Cheryl Spencer RN [facility] Comment on above: SN HH OASIS DISCHARG E Start: 03-19-2024 End: 03-19-2024 ambulatory [facility] Start: 03-19-2024 End: 03-19-2024 Home visit Carson Bass RN [facility] Comment on above: SN IV THERAPY ROUTIN E-BILLABLE Start: 03-12-2024 End: 03-12-2024 Home visit Cheryl Spencer RN [facility] Comment on above: SN IV THERAPY ROUTIN E-BILLABLE Start: 03-12-2024 End: 03-12-2024 ambulatory LILIYA Adena [facility] Start: 03-08-2024 End: 03-08-[address] Marietta Johnson Work Phone: Work Phone: Start: 03-08-2024 End: 03-08-[address] Marietta Johnson Work Phone: [facility] Work Phone: Start: 03-06-2024 End: 03-06-2024 Home visit Brando Costa PT [facility] Comment on above: PT NON-OASIS/DISCIPL INE DISCHARGE SN IV THERAPY PRN-BI LLABLE Start: 03-05-2024 End: 03-05-2024 Home visit Cheryl Spencer RN [facility] Comment on above: SN IV THERAPY ROUTIN E-BILLABLE J2EE CONSULTANT MISSED VISIT Start: 03-05-2024 End: 03-06-[address] Marietta Johnson Work Phone: Work Phone: Start: 03-05-2024 End: 03-05-[address] Marietta Johnson Work Phone: [facility] Work Phone: Start: 03-02-2024 Home visit Lizbeth Sandoval J2EE CONSULTANT [facility] Comment on above: J2EE CONSULTANT ROUTINE VISIT Start: 03-01-2024 End: 03-01-[address] Marietta Johnson Work Phone: Work Phone: Start: 03-01-2024 End: 03-01-[address] Marietta Johnson Work Phone: -Laboratory, Future Work Phone: Start: 03-01-2024 End: 03-01-[address] Marietta Johnson Work Phone: [facility] Work Phone: Start: 02-29-2024 End: 02-29-2024 Home visit Mini Raines RN [facility] Comment on above: SN HH PRN VISIT Start: 02-28-2024 Home visit Lizbeth Sandoval J2EE CONSULTANT [facility] Comment on above: J2EE CONSULTANT ROUTINE VISIT Start: 02-27-2024 End: 02-27-2024 Home visit Cheryl Spencer RN [facility] Comment on above: SN IV THERAPY ROUTIN E-BILLABLE Start: 02-27-2024 End: 02-27-2024 ambulatory [facility] Start: 02-23-2024 End: 02-23-2024 Home visit Lizbeth Sandoval J2EE CONSULTANT [facility] Comment on above: J2EE CONSULTANT ROUTINE VISIT Start: 02-21-2024 End: 02-21-2024 Home visit Brando Costa PT [facility] Comment on above: PT INITIAL EVALUATIO N Start: 02-20-2024 End: 02-20-2024 Home visit Cheryl Spencer RN [facility] Comment on above: SN IV THERAPY ROUTIN E-BILLABLE Start: 02-20-2024 End: 02-20-2024 [facility] Start: 02-16-2024 End: 02-16-[address] Marietta Johnson Work Phone: [facility] Work Phone: Start: 02-14-2024 End: 02-14-2024 Home visit Blanca Wilder RN [facility] Comment on above: SN HH OASIS START OF CARE Start: 02-13-2024 End: 02-13-[address] Marietta Johnson Work Phone: -Medical Out Work Phone: Start: 02-13-2024 End: 03-23-2024 Transcribe Orders Evi Alcnatara RN [facility] Comment on above: Osteomyelitis of lum bar spine (HCC) (Primary Dx); Encounter for adjustment or management of vascular access device Start: 02-12-2024 End: 02-12-[address] Marietta Johnson Work Phone: Work Phone: Start: 02-12-2024 End: 02-12-[address] [facility] Start: 02-11-2024 End: 02-11-[address] Marietta Johnson Work Phone: Work Phone: Start: 02-11-2024 End: 02-11-[address] Marietta Johnson Work Phone: -Medical Out Work Phone: Start: 02-10-2024 Non-patient / Non-visit Dr. Cristine Johnson Work Phone: [facility] Start: 02-10-2024 End: 02-10-[address] Marietta Johnson Work Phone: Work Phone: Start: 02-10-2024 End: 02-10-[address] [facility] Start: 02-01-2024 Non-patient / Non-visit Dr. Cristine Johnson Work Phone: [facility] Start: 02-01-2024 End: 02-01-2024 Admission to same day surgery center Dr. Marietta Johnson Work Phone: -[facility] Day Care Start: 02-01-2024 End: 02-01-[address] Marietta Johnson Work Phone: Work Phone: Start: 01-24-2024 End: 01-24-[address] Marietta Johnson Work Phone: [facility] Work Phone: Start: 01-24-2024 End: 01-24-[address] 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 Marietta Johnson Work Phone: [facility] Work Phone: Start: 01-12-2024 Telephone encounter Susan guthrie APRN.TREASURY CONSULTANT Work Phone: [facility] [place] Comment on above: Appointment; Cardiac Clearance Start: 01-10-2024 End: 01-10-[address] Marietta Johnson Work Phone: [facility] Work Phone: Start: 01-05-2024 End: 01-05-[address] Marietta Johnson Work Phone: Work Phone: Start: 01-05-2024 End: 01-05-[address] Marietta Johnson Work Phone: -MRI - [facility] Work Phone: Start: 12-23-2023 End: 12-23-[address] Marietta Johnson Work Phone: Work Phone: Start: 12-23-2023 End: 12-23-[address] Marietta Johnson Work Phone: -Laboratory, [place] Work Phone: Start: 12-22-2023 End: 12-22-[address] Marietta Johnson Work Phone: Work Phone: Start: 12-22-2023 End: 12-22-[address] Marietta Johnson Work Phone: -Cat Scan, [facility] Work Phone: Start: 12-15-2023 End: 12-15-[address] Marietta Johnson Work Phone: [facility] Work Phone: Start: 10-24-2023 End: 10-24-2023 Subsequent hospital visit by physician Analy Main J1-4 Work Phone: Radiology Comment on above: Sacroiliitis (HCC) [ M46.1] Start: 10-24-2023 End: 10-24-2023 Patient encounter procedure Ale Carrion AIRWAYS CONTROL SPECIALIST.TREASURY CONSULTANT Work Phone: [facility] Comment on above: Sacroiliitis (HCC) ( Primary Dx); Chronic pain of multiple sites; S/P lumbar fusion Start: 09-26-2023 End: 09-26-2023 Patient encounter procedure Spine Med Procedure Main Work Phone: [facility] Comment on above: Sacroiliac joint antony n (Primary Dx) Start: 09-21-2023 Telephone encounter Tommy Brennan MD Work Phone: Neurology Comment on above: Medication Question Start: 09-20-2023 Telephone encounter Ashley perez MD Work Phone: Spine Medicine Comment on above: Preparations For Pro cedures; Recheck Start: 09-19-2023 End: 09-19-2023 Patient encounter procedure Spine Med Procedure Main Work Phone: [facility] Comment on above: Sacroiliac joint antony n (Primary Dx) Start: 09-13-2023 Telephone encounter Ashley perez MD Work Phone: Spine Medicine Comment on above: Preparations For Pro cedures Start: 09-02-2023 Telephone encounter Tommy Brennan MD Work Phone: Neurology Comment on above: imaging report Start: 08-29-2023 ambulatory UNKNOWN PROVIDER Facili ty:[facility] Start: 08-29-2023 End: 08-29-2023 Subsequent hospital visit by physician Xr [facility] Radiology Comment on above: S/P lumbar fusion [Z 98.1] Start: 08-04-2023 Chart abstracting Tommy lowe MD Work Phone: Neurology Start: 08-01-2023 End: 08-01-2023 Office outpatient visit 40 minutes Liliya Lara MD Work Phone: [facility] Comment on above: Chronic low back antony n, unspecified back pain laterality, unspecified whether sciatica present (Primary Dx); Restless leg; Essential hypertension; Anxiety; Dermatitis Start: 06-25-2023 Orders Only Liliya Lara MD Work Phone: [facility] Comment on above: Degeneration of lumb ar intervertebral disc (Primary Dx) Start: 06-23-2023 Orders Only Liliya Lara MD Work Phone: [facility] Comment on above: Degeneration of lumb ar intervertebral disc (Primary Dx) Start: 06-22-2023 End: 06-22-2023 Emergency department patient visit Claus Victorino [facility] Emergency Start: 06-22-2023 Orders Only Liliya Lara MD Work Phone: [facility] Comment on above: Degeneration of lumb ar intervertebral disc (Primary Dx) Start: 06-21-2023 End: 06-21-2023 Emergency department patient visit Bubba Zhu [facility] Emergency Triage Start: 06-21-2023 End: 06-21-2023 Office outpatient visit 25 minutes Liliya Lara MD Work Phone: [facility] Comment on above: Intractable back antony n (Primary Dx); 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); Anxiety Start: 05-31-2023 ambulatory Sophie Andino LEGAL ADVISOR [facility] Comment on above: High Risk Outreach f or High Risk Start: 05-16-2023 End: 05-17-2023 Emergency department patient visit [facility] Start: 05-16-2023 End: 05-16-2023 Emergency department patient visit [facility] Comment on above: S/P lumbar spine ope ration (Primary Dx) Start: 05-04-2023 End: 05-04-2023 Office outpatient visit 25 minutes Liliya Lara MD Work Phone: [facility] Comment on above: Financial difficulti es (Primary Dx); Anxiety; Preop exam for internal medicine Start: 05-04-2023 End: 05-04-2023 Patient encounter status Liliya Lara MD Work Phone: [facility] Start: 04-28-2023 End: 04-28-2023 Patient encounter procedure Susan Buck APRN.TREASURY CONSULTANT Work Phone: [facility] Comment on above: S/P CABG x 3 (Primar y Dx); Chronic heart failure with preserved ejection fraction (HCC); 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 Jordyn Noel Facility:[id number] Start: 03-18-[address] Albina Etienne Facility:[id number] Start: 03-01-2023 End: 03-01-2023 Emergency department patient visit LILIYARANULFO LARA [facility] Start: 02-23-2023 Documentation procedure Devin Patel TECHNICAL BUSINESS SYSTEMS ANALYST [facility] Comment on above: ASTON denial- Ketorolac Start: 02-23-2023 End: 02-24-[address] [facility] Start: 02-23-2023 End: 02-23-2023 Office outpatient visit 25 minutes Liliya Lara MD Work Phone: [facility] Comment on above: Rib pain (Primary Dx ); Lower extremity edema Start: 02-17-2023 ambulatory Laura valdez [facility] Start: 02-14-2023 End: 02-14-2023 Emergency department patient visit Jet Kathleen Fitzgerald [facility] Emergency 15 Start: 02-01-2023 Patient encounter procedure Laura Galindo [facility] Start: 01-17-2023 End: 01-17-2023 Office outpatient visit 40 minutes Liliya Lara MD Work Phone: [facility] Comment on above: Anxiety (Primary Dx) ; Insomnia, unspecified type; 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); S/P angioplasty with stent; Chronic heart failure with preserved ejection fraction (HCC) Start: 11-03-2022 End: 11-03-2022 Patient encounter status Guevara Espino MD Work Phone: [facility] Start: 10-26-2022 End: 10-26-2022 Office outpatient visit 40 minutes Liliya Lara MD Work Phone: [facility] Comment on above: Preop exam for inter nal medicine (Primary Dx); 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); Insomnia, unspecified type; Intractable migraine without status migrainosus, unspecified migraine type Start: 10-26-2022 End: 10-26-2022 Patient encounter status Liliya Lara MD Work Phone: [facility] Start: 10-25-2022 Telephone encounter Selene duran MD Work Phone: Cardiology Comment on above: Card Clearance Form Start: 09-14-2022 Orders Only Liliya Lara MD Work Phone: [facility] Comment on above: Secondary localized osteoarthrosis of lower leg (Primary Dx) Start: 08-31-2022 Preoperative state Liliya Lara MD Work Phone: [facility] Start: 08-23-2022 Orders Only Liliya Lara MD Work Phone: [facility] Comment on above: Degeneration of lumb ar intervertebral disc (Primary Dx) Start: 08-12-2022 End: 08-12-2022 Patient encounter procedure Guevara Espino MD Work Phone: [facility] Comment on above: Coronary atheroscler osis due to lipid rich plaque (Primary Dx); Hypertension, unspecified type; Sinus bradycardia; Beta-cristiana intolerance; S/P CABG x 3; Mixed hyperlipidemia; S/P angioplasty with stent Start: 08-09-2022 Refill Devin Patel LPN [facility] Comment on above: Coronary artery dise ase involving salt river coronary artery of salt river heart with other form of angina pectoris (HCC) Start: 07-21-2022 End: 07-21-2022 Office outpatient visit 25 minutes Liliya Lara MD Work Phone: [facility] Comment on above: Left hip pain (Prima ry Dx); Bilateral shoulder bursitis; Bipolar disorder, most recent episode depressed (HCC); Essential hypertension Start: 07-12-2022 Orders Only Liliya Lara MD Work Phone: [facility] Comment on above: Degeneration of lumb ar intervertebral disc (Primary Dx) Start: 07-02-2022 End: 07-03-2022 [facility] Start: 06-28-2022 Refill Liliya Lara MD Work Phone: [facility] Start: 06-23-2022 Orders Only Liliya Lara MD Work Phone: [facility] Comment on above: Bilateral shoulder b ursitis (Primary Dx) Start: 06-22-2022 End: 06-22-2022 Office outpatient visit 15 minutes Liliya Lara MD Work Phone: [facility] Comment on above: Anxiety (Primary Dx) ; 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 Start: 07-13-2022 Orders Only Liliya Lara MD Work Phone: [facility] Comment on above: Anxiety (Primary Dx) Start: 05-25-2022 ambulatory Ajit Thomas myra SAYDA [facility] Start: 05-25-2022 End: 05-25-2022 Office outpatient visit 15 minutes Liliya Lara MD Work Phone: [facility] Comment on above: Financial difficulti es (Primary Dx); Anxiety; Arm skin lesion, right Start: 04-20-2022 End: 04-20-2022 Office outpatient visit 25 minutes Liliya Lara MD Work Phone: [facility] Comment on above: Coronary artery dise ase involving salt river coronary artery of salt river heart with other form of angina pectoris (HCC) (Primary Dx); Bipolar disorder, most recent episode depressed (HCC); Bilateral shoulder bursitis; Intractable migraine without status migrainosus, unspecified migraine type; Essential hypertension; Osteoporosis, unspecified osteoporosis type, unspecified pathological fracture presence; Hypercholesterolemia Start: 04-10-2022 End: 04-10-2022 Emergency department patient visit Johnathan Ma [facility] Emergency 10 Start: 02-23-2022 End: 02-23-2022 Clinical Support Shyla Francis RN [facility] Comment on above: Need for COVID-19 va ccine (Primary Dx) Start: 02-16-2022 ambulatory Neville Mohr APRN.TREASURY CONSULTANT Work Phone: Cardiology Comment on above: Zio patch results Start: 02-16-2022 E-mail encounter fro m caregiver Neville Mohr APRN.TREASURY CONSULTANT Work Phone: [facility] Start: 02-09-2022 End: 02-10-2022 ambulatory PROVIDER NOT IN SYSTEM [facility] Start: 02-02-2022 End: 02-03-2022 ambulatory LILIYA LARA [facility] Start: 01-19-2022 End: 01-19-2022 Office outpatient visit 15 minutes Liliya Lara MD Work Phone: [facility] Comment on above: Encounter for gyneco logical examination (Primary Dx); Bilateral shoulder bursitis; 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); Edema of lower extremity Start: 01-19-2022 End: 01-19-2022 Patient encounter status Liliya Lara MD Work Phone: [facility] Start: 01-14-2022 Orders Only Liliya Lara MD Work Phone: [facility] Comment on above: Migraine with status migrainosus, not intractable, unspecified migraine type (Primary Dx) Start: 01-13-2022 End: 01-13-2022 Office outpatient visit 25 minutes Liliya Lara MD Work Phone: [facility] Comment on above: Encounter for screen ing mammogram for breast cancer (Primary Dx); 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); Intractable migraine without status migrainosus, unspecified migraine type; Symptomatic bradycardia Start: 12-29-2021 End: 12-29-2021 Office outpatient visit 15 minutes Liliya Lara MD Work Phone: [facility] Comment on above: Allergic reaction, i nitial encounter Start: 12-22-2021 Documentation procedure Shyla al RN [facility] Comment on above: PA INITIATED-UBRELVY Start: 12-21-2021 Orders Only Liliya Lara MD Work Phone: [facility] Start: 12-20-2021 Refill Liliya Lara MD Work Phone: [facility] Comment on above: Insomnia, unspecifie d type Start: 12-15-2021 End: 12-15-2021 Office outpatient visit 25 minutes Liliya Lara MD Work Phone: [facility] Comment on above: Acute midline low ba ck pain without sciatica (Primary Dx); Intractable migraine with status migrainosus, unspecified migraine type; Symptomatic bradycardia; Vertigo Start: 11-17-2021 Orders Only Liliya Lara MD Work Phone: [facility] Comment on above: Primary osteoarthrit is of knee, unspecified laterality (Primary Dx); Osteoporosis, unspecified osteoporosis type, unspecified pathological fracture presence Start: 11-16-2021 Orders Only Liliya Lara MD Work Phone: [facility] Comment on above: Insomnia, unspecifie d type Insomnia, unspecifie d type; 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) Start: 11-10-2021 Refill Amy Fitzgerald MA [facility] Comment on above: Insomnia, unspecifie d type Start: 11-09-2021 Refill Amy Fitzgerald MA [facility] Comment on above: Insomnia, unspecifie d type Start: 11-03-2021 End: 11-03-2021 Office outpatient visit 15 minutes Liliya Lara MD Work Phone: [facility] Comment on above: Memory problem (Prim jennifer Dx); Insomnia, unspecified type; Acute midline low back pain without sciatica; 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) Start: 10-27-2021 End: 10-27-2021 ambulatory Sofya Dale MD Work Phone: [facility] Comment on above: Valgus deformity of foot, right; Metatarsus adductus of right foot Start: 10-20-2021 Transcribe Orders Sofya Dale MD Work Phone: [facility] Comment on above: Valgus deformity of foot, right (Primary Dx); Metatarsus adductus of right foot Start: 05-19-2021 Rx Renewal Albina Etienne Work Phone: [facility] Work Phone: Start: 02-20-2021 End: 02-20-2021 Orders Only Aubrey Malone Work Phone: [facility] Start: 02-17-2021 End: 02-17-2021 Orders Only Gabbi Kearns [facility] Start: 02-17-2021 End: 02-17-2021 Office outpatient visit 25 minutes Aubrey Malone Work Phone: [facility] Comment on above: Hypertension, unspec ified type (Primary Dx); Right atrial enlargement; Bilateral leg edema; Migraine with status migrainosus, not intractable, unspecified migraine type; Acute combined systolic and diastolic congestive heart failure (HCC); Hypokalemia; Edema of lower extremity Start: 02-06-2021 End: 02-06-2021 Valerio Mary [facility] Comment on above: Migraine with aura a nd without status migrainosus, not intractable Start: 02-05-2021 End: 02-06-[address] [facility] Start: 01-29-2021 End: 01-29-2021 Orders Only Aubrey Malone Work Phone: [facility] Start: 01-20-2021 End: 01-20-2021 Orders Only Crissy Lin Work Phone: [facility] Provider Hospitalist Start: 01-12-2021 End: 01-12-2021 Phys/qhp telephone evaluation 11-20 min Aubrey Malone Work Phone: [facility] Comment on above: Migraine with aura a nd without status migrainosus, not intractable (Primary Dx); Osteoporosis, unspecified osteoporosis type, unspecified pathological fracture presence; Insomnia, unspecified type; Vitamin D deficiency Start: 12-25-2020 End: 12-25-2020 Office outpatient new 45 minutes Aubrey Malone Work Phone: [facility] Comment on above: Wellness examination (Primary Dx); Essential hypertension; Hypercholesterolemia; Vitamin D deficiency; Insomnia, unspecified type Start: 03-18-2020 Patient encounter procedure Claus Avery MD [facility] Work Phone: Start: 02-26-2020 Patient encounter procedure Claus Avery [facility] Work Phone: Start: 01-03-2020 Patient encounter procedure Claus Avery [facility] Work Phone: Start: 10-31-2019 Patient encounter procedure Claus Avery [facility] Work Phone: Start: 10-03-2019 Patient encounter procedure Claus Avery [facility] Work Phone: Start: 01-21-2019 Patient encounter procedure Albina Etienne Facility:[id number] Start: 01-01-2019 Patient encounter procedure Claus Avery [facility] Work Phone: Start: 12-12-2018 Patient encounter procedure Claus Avery [facility] Work Phone: Start: 09-13-2018 Patient encounter procedure Claus Avery [facility] Work Phone: Start: 07-06-2018 Emergency department patient visit UNKNOWN PROVIDER [facility] Start: 07-05-2018 Patient encounter procedure Claus Avery [facility] Work Phone: Start: 06-09-2018 Patient encounter procedure Claus Avery [facility] Work Phone: Start: 03-03-2018 Patient encounter procedure Claus Avery [facility] Work Phone: Patient encounter status Claus Avery MD [facility] Work Phone: End: 09-13-2018 Patient encounter status Albina Etienne Work Phone: [facility] Work Phone: Procedures Date Procedure Procedure Detail Performing Clinician Start: 06-18-2025 Screening mammography Isabella Johnson DO Work Phone: Start: 03-31-2024 XR ANKLE RIGHT 2 VIEWS MARIETTA JOHNSON Start: 03-08-[address] e detection Dr. Marietta Johnson Work Phone: Start: 03-05-2024 MRI of lumbar spine with contrast Dr. Marietta Johnson Work Phone: Start: 03-01-2024 X-ray of lumbar spin e, two or three views Dr. Marietta Johnson Work Phone: Start: 02-16-2024 X-ray of lumbar spin e, two or three views Dr. Marietta Johnson Work Phone: Start: 02-01-[address] Marietta Johnson Work Phone: Start: 02-01-2024 Investigation of transfusion reaction Dr. Marietta Johnson Work Phone: Start: 02-01-2024 Microbial culture, routine Dr. Marietta Johnson Work Phone: Start: 02-01-2024 Fluoroscopic guidance Isabella Johnson Work Phone: Start: 02-01-2024 X-ray of lumbar spin e, two or three views Dr. Marietta Johnson Work Phone: Start: 02-01-2024 Laminectomy,Lumbar M icro Decompression (Not Applicable) Dr. Marietta Johnson Work Phone: Start: 01-24-2024 X-ray of lumbar spin e, two or three views Dr. Marietta Johnson Work Phone: Start: 01-05-2024 MRI of lumbar spine with contrast Dr. Marietta Johnson Work Phone: Start: 12-22-2023 CT of lumbar spine Dr. Marietta Johnson Work Phone: Start: 12-15-2023 X-ray of lumbar spin e, two or three views Dr. Marietta Johnson Work Phone: Start: 10-24-2023 Radex sacrum & coccy x minimum 2 views Ale Carrion AIRWAYS CONTROL SPECIALIST.TREASURY CONSULTANT Work Phone: Start: 05-16-2023 Basic metabolic pane l calcium total Kimberly CLANCY Work Phone: Start: 05-16-2023 C-reactive protein Ramya CLANCY Work Phone: Start: 05-16-2023 Ct lumbar spine w/o contrast material Kimberly CLANCY Work Phone: Start: 02-09-2022 Mammography Timur bradford Darin SAYDA Start: 12-25-2020 Lipid 1996 panel - S dipti or Plasma Xr J1-4 Work Phone: Start: 02-26-2020 Follow-up visit Start: 01-03-2020 Follow-up visit Start: 01-03-2020 Blood count complete auto&auto difrntl wbc Claus Avery Start: 01-03-2020 Comprehensive metabo lic 2000 panel Claus Avery Start: 01-03-2020 TSH WITH REFLEX TO F REE T4 IF ABNORMAL Claus Avery Start: 10-31-2019 Follow-up visit Start: 10-05-2019 Follow-up visit Start: 07-13-2018 Total Knee Replaceme nt Right Albina Alberts Jaimie Work Phone: Start: 03-17-2018 Lipid 1996 panel - S dipti or Plasma Tommy Brennan MD Work Phone: Start: 02-27-2016 Mammography Shyla al RN Start: 10-05-2015 History of coronary artery bypass grafting S/P CABG x 3 Sofya Dale MD Work Phone: Start: 02-01-2013 Mammography JA Mohr APRN.TREASURY CONSULTANT Work Phone: Start: 07-29-2009 H/O: artificial joint Knee joint rep lacement NA Mohr AIRWAYS CONTROL SPECIALIST.TREASURY CONSULTANT Work Phone: Start: 07-29-2009 History of operative procedure on knee Status post knee replacement Sofya Dale MD Work Phone: Appendectomy Claus Avery H/O: surgery Status post hard bustamante removal Dr. 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 3 Guevara Espino MD Work Phone: History of coronary artery bypass grafting S/P CABG x 3 Susan Buck AIRWAYS CONTROL SPECIALIST.TREASURY CONSULTANT Work Phone: History of coronary artery bypass grafting S/P CABG x 3 Susan Buck AIRWAYS CONTROL SPECIALIST.TREASURY CONSULTANT Work Phone: History of Foot Surgery Deepa Avery Comment on above: left, bunionectomy w tih hardware; History of Inguinal Hernia Repair Claus Avery Comment on above: right, childhood; History of Reported Hx Of Hip Replacement - Right Side Claus Avery History of Total Kne e Replacement Left Claus Avery End: 07-13-2018 History of Total Knee Replacement Right Claus Avery Screening colonoscopy Isela Avery Comment on above: 2015; Plan of Treatment Date Care Activity Detail Author Start: 07-06-2028 DTaP/Tdap/Td Vaccine s (2 - Td or Tdap) DTaP/Tdap/Td Vaccines (2 - Td or Tdap) [facility] Start: 07-06-2028 Tetanus vaccination Tetanus: Every 1 0yrs [facility] Start: 07-06-2028 Urine microalbumin profile DTaP,Tdap,Td Vaccine (2 - Td or Tdap) [facility] Start: 03-19-2027 [facility] Start: 01-19-2027 Screening for malign ant neoplasm of cervix [facility] Start: 10-24-2026 Diabetes Screening Diabetes Screenin [facility] Start: 06-22-2026 [facility] Start: 02-03-2026 DIABETES SCREEN DIABETES SCREEN [facility] Start: 01-13-2026 Screening for malign ant neoplasm of colon [facility] Comment on above: Postponed from 12/03 (Not Indicated) Postponed (Not Indic ated) Postponed from 12/03 (Not Indicated) Start: 12-25-2025 Lipid panel Lipid Screening [facility] Start: 08-20-2025 End: 08-20-2025 Patient encounter procedure 08/20/2025 2:30 PM EDT Office Visit Vascular Surgery [address] [place] [address] Crissy Zavala, DO [address] [place] [address] 3 month follow up Vascular Surgery Comment on above: 3 month follow up Start: 07-15-2025 Influenza vaccination Influenza Vacc ine (#1) [facility] Start: 06-19-2025 End: 06-19-2025 Patient encounter procedure 06/19/2025 8:00 AM EDT Office Visit Plastic Surgery [address] [phone] Abdelrahman Conrad MD [address] [place] [address] lymohedena consult Plastic Surgery Comment on above: lymohedena consult Start: 06-11-2025 End: 06-11-2025 Patient encounter procedure Vasculary Surgery Comment on above: PAD (peripheral franklin ry disease) [I73.9] Secondary lymphedema [I89.0] follow up after test ing Start: 05-14-2025 End: 05-14-2025 Patient encounter procedure 05/14/2025 9:15 AM EDT Office Visit Vascular Surgery [address] [place] [address] Crissy Zavala DO [address] [place] [address] 3 week follow up Vascular Surgery Comment on above: 3 week follow up Start: 05-02-2025 End: 05-02-2025 Patient encounter procedure 05/02/2025 4:00 PM EDT Office Visit [facility] [address] [place] [address] Susan Buck, AIRWAYS CONTROL SPECIALIST.TREASURY CONSULTANT [address] [place], [place] [id number] 3 month follow up [facility] Comment on above: 3 month follow up Start: 04-19-2025 End: 04-19-2025 Patient encounter procedure 04/19/2025 3:00 PM EDT Office Visit [facility] [address] [place], [place] [phone] Susan Buck APRN.TREASURY CONSULTANT [address] [place] [address] 3 month follow up CO[facility] Comment on above: 3 month follow up [facility] Start: 04-16-2025 End: 04-16-2025 Patient encounter procedure 04/16/2025 3:30 PM EDT Office Visit Vascular Surgery [address] [place] [address] Crissy Zavala, DO [address] [place] [address] follow up to testing Vascular Surgery Comment on above: follow up to testing Start: 04-11-2025 End: 04-11-2025 Patient encounter procedure Vascular Surgery Comment on above: PAD (peripheral franklin ry disease) [I73.9] Secondary lymphedema [I89.0] Start: 03-18-2025 Screening for osteoporosis Bone Density Scan [facility] Start: 03-05-2025 End: 03-05-2025 Patient encounter procedure 03/05/2025 3:45 PM EDT Office Visit [facility] [address] [place] [phone] CLYDE Tena, DPM [address] [place] [address] [facility] Start: 02-27-2025 End: 02-27-2025 Patient encounter procedure 02/27/2025 2:30 PM EDT Appointment [facility] [address] [place] [address] DR CLARK FAX ORDER [facility] Comment on above: DR CLARK FAX ORDER Start: 01-19-2025 BP Controlled (<130/80) BP Controlle d (<130/80) [facility] Start: 12-31-2024 End: 12-31-2024 Patient encounter procedure 12/31/2024 2:00 PM EST Office Visit [facility] Podiatry [address] [place] [phone] Tatiana Hernandez, LYNN [address] [place] [address] [facility] Start: 12-16-2024 DIABETES SCREEN DIABETES SCREEN [facility] Start: 2024 Advance Directive Discussion Advance Directive Discussion [facility] Start: 2024 Fall risk assessment Falls Risk Asse ssment [facility] Start: 2024 Pneumococcal Vaccine : Ped or At-Risk (2 of 2 - PPSV23) Pneumococcal Vaccine: Ped or At-Risk (2 of 2 - PPSV23) [facility] Start: 11-21-2024 BP Controlled (<130/80) BP Controlle d (<130/80) [facility] Start: 11-14-2024 Medicare Advantage Annual Wellness Visit Medicare Advantage Annual Wellness Visit [facility] Start: 10-24-2024 BP Controlled (<130/80) BP Controlle d (<130/80) [facility] Start: 09-26-2024 BP Controlled (<130/80) BP Controlle d (<130/80) [facility] Start: 09-19-2024 BP Controlled (<130/80) BP Controlle d (<130/80) [facility] Start: 07-15-2024 COVID-19 Vaccine ( season) COVID-19 Vaccine ( season) [facility] Start: 07-15-2024 COVID-19 Vaccine ( season) COVID-19 Vaccine ( season) [facility] Start: 07-15-2024 Influenza vaccination Sequenti al Influenza Vaccine (Season Ended) [facility] Start: 06-22-2024 Creatinine measurement Creatinine Anabel garcia [facility] Start: 06-22-2024 Potassium measurement Potassium Leve l [facility] Start: 04-28-2024 BP CONTROLLED (<130/80) BP CONTROLLE D (<130/80) [facility] Start: 04-02-2024 End: 04-02-2024 Patient encounter procedure 04/02/2024 9:30 AM EDT Appointment [address] [phone] Cheryl Spencer RN [facility] Start: 03-26-2024 End: 03-26-2024 Home visit 03/26/2024 11:00 AM EDT Home Care Visit [address] [phone] Cheryl Spencer, ALICIA [facility] Start: 03-23-2024 End: 03-23-2024 Patient encounter procedure 03/23/[address] [phone] Cheryl Spencer RN [facility] Start: 03-19-2024 End: 03-19-2024 Home visit 03/19/2024 2:00 PM EDT Home Care Visit [address] [phone] Cheryl Spencer RN [facility] Start: 03-18-2024 Screening for osteoporosis Bone Density Scan [facility] Start: 03-12-2024 End: 03-12-2024 Home visit 03/12/2024 Home Care Visit [address] [phone] Cheryl Spencer RN [facility] Start: 03-08-2024 Patient referral [facility] Work Phone: Start: 03-07-2024 End: 03-07-2024 Home visit 03/07/2024 8:00 AM EDT Home Care Visit [address] [phone] Brando Costa PT [facility] Start: 03-06-2024 End: 03-06-2024 Home visit [facility] Start: 03-05-2024 End: 03-05-2024 Home visit 03/05/2024 8:00 AM EDT Home Care Visit [address] [phone] Cheryl Spencer RN [facility] Start: 03-05-2024 Following clinical pathway protocol Start: 03-05-2024 End: 03-05-2024 Home visit 03/05/2024 Home Care Visit [address] [phone] Cheryl Spencer RN [facility] Start: 02-27-2024 End: 02-27-2024 Home visit 02/27/2024 8:00 AM EDT Home Care Visit [address] [phone] Cheryl Spencer RN [facility] Start: 02-27-2024 End: 02-27-2024 Home visit 02/27/2024 Home Care Visit [address] [phone] Cheryl Spencer RN [facility] Start: 02-21-2024 End: 02-21-2024 Home visit 02/21/2024 10:00 AM EDT Home Care Visit [address] [phone] Brando Costa, PT [facility] Start: 02-20-2024 End: 02-20-2024 Home visit 02/20/2024 6:30 AM EDT Home Care Visit [address] [phone] Cheryl Spencer RN [facility] Start: 02-20-2024 End: 02-20-2024 Home visit 02/20/2024 Home Care Visit [address] [phone] Cheryl Spencer RN [facility] Start: 02-16-2024 Patient referral [facility] Work Phone: Start: 02-13-2024 Iv infusion therapy/prophylaxis /dx 1st to 1 hr THER/PROPH/DIAG IV INF INIT Start: 02-12-2024 Following clinical pathway protocol Start: 02-12-2024 Peripherally inserte d central catheter care Start: 02-11-2024 Peripherally inserte d central catheter care Start: 02-06-2024 Patient referral [facility] Work Phone: Start: 02-04-2024 Diabetes mellitus screening Diabetes Screening [facility] Start: 02-02-2024 History and physical examination, annual for health maintenance Wellness Visit [facility] Start: 02-02-2024 Medicare Wellness Visit Medicare Wel lness Visit [facility] Start: 02-01-2024 Anaerobic Culture Anaerobic Culture Start: 02-01-2024 Anesthesia lumbar region nos ANESTH SPINE CORD SURGERY Start: 02-01-2024 Microscopic observat ion [Identifier] in Unspecified specimen by Gram stain Start: 02-01-2024 Removal posterior segmental instrumentation REMOVE SPINE FIXATION DEVICE Start: 02-01-2024 Wound Culture Wound Culture Start: 02-01-2024 Patient discharge [facility] Start: 02-01-2024 Application of ice collar, cap or bag Start: 02-01-2024 Application of intermittent pneumatic compression device Start: 02-01-2024 Catheterization of vein Start: 02-01-2024 Following clinical pathway protocol Start: 02-01-2024 Incentive spirometry [facility] Start: 02-01-2024 Measuring intake and output Start: 02-01-2024 Neurovascular assessment Start: 02-01-2024 Patient education [facility] Start: 02-01-2024 Procedure discontinued Start: 02-01-2024 Provision of activit y privileges Start: 02-01-2024 Taking patient vital signs Start: 02-01-2024 [facility] Start: 02-01-2024 X-ray of lumbar spin e, two or three views Lumbar Spine 2 or 3 Views Start: 02-01-2024 XR Lumbar spine 2 or 3 Views Start: 11-14-2023 Depression Assessment Depression Ass essment [facility] Start: 11-03-2023 BP CONTROLLED (<130/80) BP CONTROLLE D (<130/80) [facility] Start: 08-12-2023 BP CONTROLLED (<130/80) BP CONTROLLE D (<130/80) [facility] Start: 07-25-2023 End: 07-25-2023 Patient encounter procedure [facility] Start: 07-15-2023 Covid-19 Vaccine () Covid-19 Vaccine () [facility] Start: 07-15-2023 COVID-19 Vaccine () COVID-19 Vaccine () [facility] Start: 07-15-2023 Influenza vaccination [facility] Start: 06-21-2023 End: 06-21-2023 Patient encounter procedure 06/21/2023 5:00 PM EDT Office Visit [facility] [place] [phone] Liliya Lara MD [address] [place] [phone] [facility] Start: 05-13-2023 Influenza vaccination Sequenti al Influenza Vaccine (#1) [facility] Comment on above: Postponed from 07/15 (Patient Refused) Start: 05-04-2023 End: 05-04-2023 Patient encounter procedure 05/04/2023 6:40 PM EDT Office Visit [facility] [address] [place] [phone] Liliya Lara MD [address] [place] [address] [facility] Start: 03-17-2023 Lipid 1996 panel - Serum or Plasma Lipid Screening [facility] Start: 03-17-2023 LIPID SCREEN LIPID SCREEN [facility] Start: 02-09-2023 Screening for malign ant neoplasm of breast Mammogram [facility] Start: 02-01-2023 End: 02-01-2023 Patient encounter procedure 02/01/2023 Office Visit Primary Care Liliya Lara MD [facility] [address] [address] [facility] Start: 01-19-2023 History and physical examination, annual for health maintenance Wellness Visit [facility] Start: 12-30-2022 BP CONTROLLED (<130/80) BP CONTROLLE D (<130/80) [facility] Start: 12-27-2022 End: 12-27-2022 Patient encounter procedure 12/27/2022 Office Visit Primary Care Liliya Lara MD [address] [place] [address] [facility] Start: 11-14-2022 DEPRESSION ASSESSMENT DEPRESSION ASS ESSMENT [facility] Start: 10-26-2022 End: 10-26-2022 Patient encounter procedure 10/26/2022 Office Visit Primary Care Liliya Lara MD [address] [place] [address] [facility] Start: 08-31-2022 End: 08-31-2022 Patient encounter procedure 08/31/2022 Office Visit Primary Care Liliya Lara MD [address] [place] [address] [facility] Start: 07-21-2022 End: 07-21-2022 Patient encounter procedure 07/21/2022 Office Visit Primary Care Liliya Lara MD [address] [place] [address] [facility] Start: 07-15-2022 Influenza vaccination [facility] Start: 06-25-2022 COVID-19 Vaccine (4 - Booster for Pfizer series) COVID-19 Vaccine (4 - Booster for Pfizer series) [facility] Start: 06-22-2022 End: 06-22-2022 Patient encounter procedure 06/22/2022 Office Visit Primary Care Liliya Lara MD [address] [place] [address] [facility] Start: 04-21-2022 End: 04-21-2022 Patient encounter procedure 04/21/2022 Office Visit Primary Care Liliya Lara MD [address] [address] [facility] Start: 04-20-2022 COVID-19 Vaccine (4 - Booster for Pfizer series) COVID-19 Vaccine (4 - Booster for Pfizer series) [facility] Start: 04-20-2022 COVID-19 Vaccine (4 - Pfizer series) COVID-19 Vaccine (4 - Pfizer series) [facility] Start: 03-10-2022 Administration of herpes zoster vaccine Zoster Vaccines (2 of 2) [facility] Start: 02-03-2022 End: 02-03-2022 Patient encounter procedure 02/03/2022 Appointment Radiology Liliya Lara MD [address] [address] [facility] Start: 01-19-2022 End: 01-19-2022 Patient encounter procedure 01/19/2022 Office Visit Primary Care Liliya Lara MD [address] [address] [facility] Start: 01-12-2022 End: 01-12-2022 Patient encounter procedure 01/12/2022 Office Visit Primary Care Liliya Lara MD [address] [address] [facility] Start: 01-04-2022 End: 01-04-2022 Patient encounter procedure 01/04/2022 Office Visit Primary Care Liliya Lara MD [address] [address] [facility] Start: 12-25-2021 Hepatitis B surface antibody level LDL Cholesterol [facility] Start: 11-14-2021 DEPRESSION ASSESSMENT DEPRESSION ASS ESSMENT [facility] Start: 11-10-2021 End: 11-10-2021 ambulatory 11/10/2021 Treatment Rehabilitation Sofya Dale MD [address] [place] [address] Deborah Dawkins PTA [facility] Start: 11-02-2021 End: 11-02-2021 Patient encounter procedure 11/02/2021 Office Visit Primary Care Liliya Lara MD [address] [address] [facility] Start: 10-29-2021 End: 10-29-2021 ambulatory 10/29/2021 Treatment Rehabilitation Sofya Dale MD [address] [place] [address] Rosalino Nicholas PTA [facility] Start: 10-27-2021 End: 10-27-2021 ambulatory 10/27/2021 Evaluation Rehabilitation Sofya Dale MD [address] [place], [place] [phone] Dario Balderas PT [facility] Start: 07-16-2021 End: 07-16-2021 Office Visit [facility] Start: 07-15-2021 Influenza vaccination Sequenti al Influenza Vaccine (#1) [facility] Start: 07-02-2021 COVID-19 Vaccine (3 - Booster for Pfizer series) COVID-19 Vaccine (3 - Booster for Pfizer series) [facility] Start: 06-01-2021 COVID-19 Vaccine (3 - Booster for Pfizer series) COVID-19 Vaccine (3 - Booster for Pfizer series) [facility] Start: 02-27-2021 COVID-19 VACCINE (3 - Booster for Pfizer series) COVID-19 VACCINE (3 - Booster for Pfizer series) [facility] Start: 02-27-2021 Covid-19 Vaccine (3 - Pfizer series) Covid-19 Vaccine (3 - Pfizer series) [facility] Start: 02-17-2021 End: 02-17-2021 Office Visit 02/17/2021 Office Visit Primary Care Aubrey Malone, TREASURY CONSULTANT [address] [address] [phone] [facility] Start: 02-05-2021 End: 02-05-2021 Appointment 02/05/2021 Appointment Cardiology Ángel Ponce MD [address] [place] [address] [phone] [facility] Start: 01-12-2021 End: 01-12-2021 Office Visit 01/12/2021 Office Visit Primary Care Aubrey Malone TREASURY CONSULTANT [address] [place] [address] [phone] [facility] Start: 12-28-2020 COVID-19 Vaccine (2 of 2 - Pfizer series) COVID-19 Vaccine (2 of 2 - Pfizer series) [facility] Start: 2019 Respiratory Syncytia l Virus Immunization: Risk, 60-74 Risk, or 75+ (1 - Risk 60-74 years 1-dose series) Respiratory Syncytial Virus Immunization: Risk, 60-74 Risk, or 75+ (1 - Risk 60-74 years 1-dose series) [facility] Start: 2019 RSV High Risk: (Elde rly (60+) or Population) (1 - Risk 60-74 years 1-dose series) RSV High Risk: (Elderly (60+) or Population) (1 - Risk 60-74 years 1-dose series) [facility] Start: 2019 RSV patient s and/or patients aged 60+ years (1 - 1-dose 60+ series) RSV patients and/or patients aged 60+ years (1 - 1-dose 60+ series) [facility] Start: 2019 RSV Vaccine (1 - 1-d ose 60+ series) RSV Vaccine (1 - 1-dose 60+ series) [facility] Start: 2019 RSV Vaccine (1 - Ris k 60-74 years 1-dose series) RSV Vaccine (1 - Risk 60-74 years 1-dose series) [facility] Start: 03-17-2019 Hepatitis B surface antibody level LDL CHOLESTEROL [facility] Start: 02-07-2018 Pneumococcal vaccination [facility] Start: 02-07-2018 Pneumococcal Vaccine : Ped or At-Risk (2 - PCV) Pneumococcal Vaccine: Ped or At-Risk (2 - PCV) [facility] Start: 02-26-2017 Screening for malign ant neoplasm of breast Mammogram [facility] Start: 02-01-2014 Mammography [facility] Start: 02-01-2014 Screening for malign ant neoplasm of breast Mammogram Screening [facility] Start: 2009 Administration of herpes zoster vaccine Zoster Vaccines (1 of 2) [facility] Start: 2009 Screening for malign ant neoplasm of colon [facility] Start: 2009 SHINGRIX VACCINE (1 of 2) SHINGRIX VACCINE (1 of 2) [facility] Start: 2009 Zoster Vaccines (1 o f 2) Zoster Vaccines (1 of 2) [facility] Start: 10-16-2009 MMR Vaccines (1 of 1 - Standard series) MMR Vaccines (1 of 1 - Standard series) [facility] Start: 2004 COLOGUARD (FIT-DNA) COLOGUARD (FIT-D NA) [facility] Start: 2004 Colonoscopy COLONOSCOPY [facility] Start: 2004 COLORECTAL CANCER SCREENING COLORECTAL CANCER SCREENING [facility] Start: [address] COLONOGRAPHY [facility] Start: 2004 FECAL OCCULT BLOOD FECAL OCCULT BLOO D [facility] Start: 2004 Screening for malign ant neoplasm of colon [facility] Start: 2004 SIGMOIDOSCOPY SIGMOIDOSCOPY [facility] Start: 1999 Screening for malign ant neoplasm of breast Mammogram [facility] Start: 1989 HPV TESTING HPV TESTING [facility] Start: 1989 Screening for malign ant neoplasm of cervix [facility] Start: 1980 PAP TESTING PAP TESTING [facility] Start: 1980 Screening for malign ant neoplasm of cervix [facility] Start: 1978 Urine microalbumin profile [facility] Start: 1977 ANNUAL PCP TEAM ROPE CUTTER OSORIO DISEASE VISIT ANNUAL PCP TEAM CHRONIC DISEASE VISIT [facility] Start: 1977 Anxiety Screening Anxiety Screening [facility] Start: 1977 BP Controlled (<130/80) BP Controlle d (<130/80) [facility] Start: 1977 Depression Screening Depression Scre ening [facility] Start: 1977 Diabetes mellitus screening Diabetes Screening [facility] Start: 1977 Hepatitis C antibody , confirmatory test Hepatitis C Screening [facility] Start: 1977 Hepatitis C screening Hepatitis C Sc [facility] Start: 1977 HEPATITIS C SCREENING HEPATITIS C SC [facility] Start: 1977 HIV SCREENING HIV SCREENING [facility] Start: 1977 HIV screening HIV Screening [facility] Start: 1974 HIV screening HIV Screening [facility] Start: 1971 Adult depression screening assessment DEPRESSION SCREENING [facility] Start: 1965 PNEUMOCOCCAL (1 - PCV) PNEUMOCOCCAL (1 - PCV) [facility] Start: 1965 Pneumococcal vaccination Pneumococcal Vaccine (1 - PCV) [facility] Start: 1962 History and physical examination, annual for health maintenance Wellness Visit [facility] Start: 1959 Echocardiography Echocardiogram [facility] Start: 1959 HIV screening HIV Screening [facility] Start: 1959 Lipid panel Lipid Panel [facility] Start: 1959 Medicare Annual Wellness Visit Medicare Annual Wellness Visit (AWV) [facility] Start: 1959 Screening for malign ant neoplasm of cervix Pap Smear [facility] Start: 1959 Screening for malign ant neoplasm of colon [facility] Start: 1959 Screening mammography Mammogram [facility] Acid fast bacilli culture Bacteria identified in Unspecified specimen by Anaerobe culture End: 02-24-2024 Basic metabolic 1999 panel - Serum or Plasma Basic Metabolic Panel Lab Routine Lower extremity edema 1 Occurrences starting 02/23/2023 until 02/24/2024 [facility] Comment on above: 1 Occurrences starti ng 02/23/2023 until 02/24/2024 Basic metabolic 1999 panel - Serum or Plasma Basic Metabolic Panel Lab Routine Lower extremity edema 02/23/2023 11:57 AM EDT [facility] End: 04-27-2023 Bone density scan XR Bone Density DEXA Axial Imaging Routine Bilateral shoulder bursitis Osteoporosis, unspecified osteoporosis type, unspecified pathological fracture presence 1 Occurrences starting 04/27/2022 until 04/27/2023 [facility] Comment on above: 1 Occurrences starti ng 04/27/2022 until 04/27/2023 End: 01-19-2023 Chlamydia trachomatis rRNA assay Chlamydia/GC/Trichomonas Amplified RNA Microbiology Routine Encounter for gynecological examination 1 Occurrences starting 01/19/2022 until 01/19/2023 [facility] Comment on above: 1 Occurrences starti ng 01/19/2022 until 01/19/2023 End: 11-03-2022 Cobalamin (Vitamin B12) [Mass/volume] in Serum or Plasma Vitamin B12 Lab Routine Memory problem 1 Occurrences starting 11/03/2021 until 11/03/2022 [facility] Work Phone: Comment on above: 1 Occurrences starti ng 11/03/2021 until 11/03/2022 End: 10-26-2023 Complete blood count with white cell differential, manual CBC and Differential Lab Routine Preop exam for internal medicine 1 Occurrences starting 10/26/2022 until 10/26/2023 [facility] Work Phone: Comment on above: 1 Occurrences starti ng 10/26/2022 until 10/26/2023 End: 10-26-2023 Comprehensive metabolic 2000 panel - Serum or Plasma Comprehensive Metabolic Panel Lab Routine Preop exam for internal medicine 1 Occurrences starting 10/26/2022 until 10/26/2023 [facility] Comment on above: 1 Occurrences starti ng 10/26/2022 until 10/26/2023 Drugs of abuse urine screening test Drugs of Abuse Screen, Urine Lab Routine Anxiety Therapeutic drug monitoring Ordered: 01/17/2023 [facility] Comment on above: Ordered: 01/17/2023 ECG B/O W INTERP (ME D OFFICE) ECG B/O W INTERP (MED OFFICE) ECG Routine Coronary atherosclerosis due to lipid rich plaque Sinus bradycardia Beta-cristiana intolerance S/P CABG x 3 Mixed hyperlipidemia S/P angioplasty with stent Ordered: 08/12/[address] [facility] Work Phone: Comment on above: Ordered: 08/12/2022 ECG B/O W INTERP (ME D OFFICE) ECG B/O W INTERP (MED OFFICE) ECG Routine Coronary atherosclerosis due to lipid rich plaque Pre-operative cardiovascular examination Ordered: 11/03/[address] [facility] Work Phone: Comment on above: Ordered: 11/03/2022 ECG B/O W INTERP (ME D OFFICE) ECG B/O W INTERP (MED OFFICE) ECG Routine Preoperative cardiovascular examination Ordered: 04/28/[address] [facility] Work Phone: Comment on above: Ordered: 04/28/2023 ECG B/O W INTERP (ME D OFFICE) ECG B/O W INTERP (MED OFFICE) ECG Routine Encounter for pre-operative cardiovascular clearance Ordered: 01/20/[address] [facility] Work Phone: Comment on above: Ordered: 01/20/2024 ECG B/O W INTERP (ME D OFFICE) ECG B/O W INTERP (MED OFFICE) ECG Routine Swelling of limb SOB (shortness of breath) Primary hypertension Ordered: 01/29/2025 [facility] Comment on above: Ordered: 01/29/2025 End: 01-29-2026 Echocardiography ECHO Cardiology Routine S/P CABG x 3 Swelling of limb SOB (shortness of breath) 1 Occurrences starting 01/29/2025 until 01/29/2026 [facility] Comment on above: 1 Occurrences starti ng 01/29/2025 until 01/29/2026 End: 11-03-2022 Folate [Mass/volume] in Serum or Plasma Folate Lab Routine Memory problem 1 Occurrences starting 11/03/2021 until 11/03/2022 [facility] Comment on above: 1 Occurrences starti ng 11/03/2021 until 11/03/2022 Fungus identified in Unspecified specimen by Culture Fungus identified in Unspecified specimen by Fungus stain End: 01-18-2024 Hemoglobin A1c/Hemoglobin.total in Blood Hemoglobin A1c Lab Routine Anxiety 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) Hypercholesterolemia Impaired glucose tolerance in obese 1 Occurrences starting 01/17/2023 until 01/18/2024 [facility] Comment on above: 1 Occurrences starti ng 01/17/2023 until 01/18/2024 End: 04-20-2023 Hepatic function 2000 panel - Serum or Plasma Hepatic Function Panel Lab Routine Bilateral shoulder bursitis 1 Occurrences starting 04/20/2022 until 04/20/2023 [facility] Comment on above: 1 Occurrences starti ng 04/20/2022 until 04/20/2023 End: 10-26-2023 INR in Platelet poor plasma by Coagulation assay PT/INR Lab Routine Preop exam for internal medicine 1 Occurrences starting 10/26/2022 until 10/26/2023 [facility] Comment on above: 1 Occurrences starti ng 10/26/2022 until 10/26/2023 End: 04-20-2023 Lipid 1996 panel - Serum or Plasma Lipid Panel Lab Routine 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) 1 Occurrences starting 04/20/2022 until 04/20/2023 [facility] Work Phone: Comment on above: 1 Occurrences starti ng 04/20/2022 until 04/20/2023 End: 06-22-2023 Lipid 1996 panel - Serum or Plasma Lipid Panel Lab Routine Anxiety 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) 1 Occurrences starting 06/22/2022 until 06/22/2023 [facility] Work Phone: Comment on above: 1 Occurrences starti ng 06/22/2022 until 06/22/2023 End: 03-15-2023 MG Breast - bilateral Screening Mammography Screening Emir Bilateral Imaging Routine Encounter for screening mammogram for breast cancer 1 Occurrences starting 01/13/2022 until 03/15/2023 [facility] Work Phone: Comment on above: 1 Occurrences starti ng 01/13/2022 until 03/15/2023 Microscopic examinat ion of vaginal Papanicolaou smear Thinprep Pap Smear Pathology and Cytology Routine Encounter for gynecological examination Ordered: 01/19/2022 [facility] Work Phone: Comment on above: Ordered: 01/19/2022 MR Lumbar spine WO a nd W contrast IV End: 06-22-2024 MRI of lumbar spine without contrast MR Lumbar Spine Without Contrast Imaging STAT Degeneration of lumbar intervertebral disc 1 Occurrences starting 06/22/2023 until 06/22/2024 [facility] Work Phone: Comment on above: 1 Occurrences starti ng 06/22/2023 until 06/22/2024 Mycobacterium sp identified in Unspecified specimen by Organism specific culture End: 01-18-2024 Natriuretic peptide.B prohormone N-Terminal [Mass/volume] in Serum or Plasma NT PRO BNP Lab Routine Chronic heart failure with preserved ejection fraction (HCC) 1 Occurrences starting 01/17/2023 until 01/18/2024 [facility] Comment on above: 1 Occurrences starti ng 01/17/2023 until 01/18/2024 Neisseria gonorrhoea e nucleic acid detection Chlamydia/Gonorrhoeae Amplified RNA Microbiology Routine Encounter for gynecological examination Ordered: 01/19/2022 [facility] Comment on above: Ordered: 01/19/2022 Patient Education [facility] Work Phone: Patient referral [facility] Work Phone: End: 09-07-2024 Radex spine lumbosacral minimum 4 views XR LUMBAR MOTION 4V AP/LAT/ FLEX/EXT Radiology Routine S/P lumbar fusion 1 Occurrences starting 08/09/2023 until 09/07/[address] [facility] Work Phone: Comment on above: 1 Occurrences starti ng 08/09/2023 until 09/07/2024 Radex spine lumbosac ral minimum 4 views XR LUMBAR MOTION 4V AP/LAT/ FLEX/EXT Radiology Routine S/P lumbar fusion 08/29/2023 1:02 PM EDT [facility] Work Phone: End: 11-03-2022 Rapid plasma reagin test RPR Lab Routine Memory problem 1 Occurrences starting 11/03/2021 until 11/03/2022 [facility] Comment on above: 1 Occurrences starti ng 11/03/2021 until 11/03/2022 End: 02-17-2022 Sleep disorder test AND/OR procedure Home sleep test Sleep Center Routine Hypertension, unspecified type Right atrial enlargement Bilateral leg edema 1 Occurrences starting 02/17/2021 until 02/17/2022 [facility] Comment on above: 1 Occurrences starti ng 02/17/2021 until 02/17/2022 End: 11-03-2022 Thyrotropin [Units/volume] in Serum or Plasma TSH Lab Routine Memory problem 1 Occurrences starting 11/03/2021 until 11/03/2022 [facility] Comment on above: 1 Occurrences starti ng 11/03/2021 until 11/03/2022 End: 06-22-2023 Thyrotropin [Units/volume] in Serum or Plasma TSH Lab Routine Anxiety 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) 1 Occurrences starting 06/22/2022 until 06/22/2023 [facility] Comment on above: 1 Occurrences starti ng 06/22/2022 until 06/22/2023 End: 01-18-2024 Thyrotropin [Units/volume] in Serum or Plasma TSH with Reflex Free T4 Lab Routine Anxiety 1 Occurrences starting 01/17/2023 until 01/18/2024 [facility] Comment on above: 1 Occurrences starti ng 01/17/2023 until 01/18/2024 Trichomonas vaginali s Amplified RNA Trichomonas vaginalis Amplified RNA Microbiology Routine Encounter for gynecological examination Ordered: 01/19/2022 [facility] Comment on above: Ordered: 01/19/2022 End: 03-19-2026 US Lower extremity artery - bilateral PVR LEG ANIL VAS LAB Vascular Lab Routine PAD (peripheral artery disease) 1 Occurrences starting 03/19/2025 until 03/19/2026 [facility] Comment on above: 1 Occurrences starti ng 03/19/2025 until 03/19/2026 End: 02-28-2026 US Lower extremity vein - right US DVT LOWER RIGHT Radiology STAT Swelling of limb 1 Occurrences starting 01/29/2025 until 02/28/[address] [facility] Work Phone: Comment on above: 1 Occurrences starti ng 01/29/2025 until 02/28/2026 End: 03-19-2026 US Vein US VENOUS INCOMPETENCY UNL VAS LAB Vascular Lab Routine Secondary lymphedema Venous (peripheral) insufficiency 1 Occurrences starting 03/19/2025 until 03/19/[address] [facility] Work Phone: Comment on above: 1 Occurrences starti ng 03/19/2025 until 03/19/2026 End: 01-18-2024 Vitamin D, 25-hydroxy measurement Vitamin D, Total, 25-OH Lab Routine Vitamin D deficiency 1 Occurrences starting 01/17/2023 until 01/18/2024 [facility] Work Phone: Comment on above: 1 Occurrences starti ng 01/17/2023 until 01/18/2024 Wound microscopy, culture and sensitivities End: 03-31-2024 XR Ankle - right 2 Views [facility] Work Phone: Comment on above: Once for 1 Occurrenc es starting 03/31/2024 until 03/31/2024 End: 01-15-2025 XR Ankle - right 2 Views [facility] Work Phone: Comment on above: Once for 1 Occurrenc es starting 01/15/2025 until 01/15/2025 XR Foot - right 3 Views XR Foot Right 3+ Views (Standard) Imaging Routine Right foot pain 12/12/2024 10:16 AM EST [facility] Work Phone: End: 02-24-2024 XR Ribs Left 3+ Views (Standard) XR Ribs Left 3+ Views (Standard) Imaging Routine Rib pain 1 Occurrences starting 02/23/2023 until 02/24/2024 [facility] Work Phone: Comment on above: 1 Occurrences starti ng 02/23/2023 until 02/24/2024 XR Ribs Left 3+ View s (Standard) XR Ribs Left 3+ Views (Standard) Imaging Routine Rib pain 02/23/2023 12:17 PM EDT [facility] End: 02-24-2024 XR Ribs Right 3+ Views (Standard) XR Ribs Right 3+ Views (Standard) Imaging Routine Rib pain 1 Occurrences starting 02/23/2023 until 02/24/2024 [facility] Comment on above: 1 Occurrences starti ng 02/23/2023 until 02/24/2024 XR Ribs Right 3+ Vie ws (Standard) XR Ribs Right 3+ Views (Standard) Imaging Routine Rib pain 02/23/2023 12:14 PM EDT [facility] End: 04-20-2023 XR Shoulder Left 2+ Views (Standard) XR Shoulder Left 2+ Views (Standard) Imaging Routine Bilateral shoulder bursitis 1 Occurrences starting 04/20/2022 until 04/20/2023 [facility] Comment on above: 1 Occurrences starti ng 04/20/2022 until 04/20/2023 End: 06-23-2023 XR Shoulder Left 2+ Views (Standard) XR Shoulder Left 2+ Views (Standard) Imaging Routine Bilateral shoulder bursitis 1 Occurrences starting 06/23/2022 until 06/23/2023 [facility] Work Phone: Comment on above: 1 Occurrences starti ng 06/23/2022 until 06/23/2023 End: 04-20-2023 XR Shoulder Right 2+ Views (Standard) XR Shoulder Right 2+ Views (Standard) Imaging Routine Bilateral shoulder bursitis 1 Occurrences starting 04/20/2022 until 04/20/2023 [facility] Comment on above: 1 Occurrences starti ng 04/20/2022 until 04/20/2023 [facility] Work Phone: [facility] NEGATED: Highlighted row has been ruled out! Planned Goals not documented [facility] Work Phone: Immunizations Immunization Date Immunization Notes Care Provider Analy murphy 08-16-2024 influenza virus vacc ine, unspecified formulation Crissy Zavala Work Phone: [facility] 09-15-2023 Influenza, injectabl e, Madin Castell Canine Kidney, preservative free, quadrivalent Xr J1-4 Work Phone: [facility] 01-17-2023 Pneumococcal Conjuga te 20-Valent (Prevnar 20) Valery Bradford LPN [facility] 01-17-2023 pneumococcal conj. 20-valent (PREVNAR 20) 0.5 mL vaccine Liliya Lara MD Work Phone: [facility] 04-20-2022 zoster vaccine recombinant Liliya Lara MD Work Phone: [facility] 04-20-2022 varicella-zoster gE, diluent + powder, (SHINGRIX KIT) 50 mcg/0.5 mL injection Liliya Lara MD Work Phone: [facility] 02-23-2022 Pfizer 12+ Years rosamaria-sucrose COVID-19 vaccine Shyla Francis RN [facility] 02-23-2022 COVID-19 vac, rosamaria,Pfizer,,PF, (PFIZER COV-19 VACC, 12 YR UP,) injection (jimenez cap) Shyla Francis RN [facility] 01-13-2022 zoster vaccine recombinant Liliya Lara MD Work Phone: [facility] 01-13-2022 varicella-zoster gE, diluent + powder, (SHINGRIX KIT) 50 mcg/0.5 mL injection Liliya Lara MD Work Phone: [facility] 09-25-2021 Seasonal, quadrivale nt, recombinant, injectable influenza vaccine, preservative free Liliya Lara MD Work Phone: [facility] 09-25-2021 Seasonal, trivalent, recombinant, injectable influenza vaccine, preservative free Liliya Lara MD Work Phone: [facility] 09-25-2021 influenza virus vacc ine, unspecified formulation [facility] 01-02-2021 Pfizer SARS-CoV-2 Vaccination [facility] 12-07-2020 Pfizer SARS-CoV-2 Vaccination [facility] 08-19-2020 influenza, injectabl e, quadrivalent, preservative free; Translations: [Influenza, injectable, quadrivalent, preservative free] [facility] Comment on above: Series: 08-11-2020 Influenza, injectabl e, Madin Chelsie Canine Kidney, preservative free, quadrivalent Gabbi Som [facility] 10-01-2019 Influenza, injectabl e, Madin Castell Canine Kidney, quadrivalent with preservative [facility] 08-25-2018 influenza, injectabl e, quadrivalent, preservative free Gabbi Som [facility] 07-06-2018 tetanus toxoid, redu mayco diphtheria toxoid, and acellular pertussis vaccine, adsorbed [facility] 07-31-2017 influenza, injectabl e, quadrivalent, preservative free [facility] 02-07-2017 pneumococcal polysaccharide vaccine, 23 valent [facility] 07-28-2016 influenza, injectabl e, quadrivalent, preservative free [facility] 09-18-2009 novel influenza-H1N1 -09, preservative-free, injectable [facility] 07-06-2009 tuberculin skin test ; purified protein derivative solution, intradermal Susan Buck APRN.TREASURY CONSULTANT Work Phone: [facility] Payers Date Payer Category Payer Private Health Insurance [id number] 2024 Self-pay 2023 Medicare (Managed Care) 1.2. [id number] 2023 Medicare O [facility] AAR MEDICAR E ADVANTAGE/OPTUMCARE [id number] 2021 Medicare UHC AARP MEDICAR E [facility] MEDICARE PPO [id number] 2021-Present [phone] [address] [address] [place] [address] PPO [id number] 2021 Unknown 2021 Medicare [id number] 2020 Medicare AETNA MANAGED ID DICARE AETNA MEDICARE PLAN (PPO) [id number] 2020-Present [id number] 2020 Medicare [id number] 2020 Medicare [id number] .[id number] 1959 Unknown [id number] 2.16.840.1.336587.3.579.2 .356 1959 Unknown [id number] 2.16.840.1.890411.3.579.2 .903 1959 Unknown [id number] 2.16.840.1.724076.3.579.2 .900 1959 Unknown [id number] 2.16.840.1.263724.3.579.2 .900 1959 Unknown [id number] 2.16.840.1.423752.3.579.2 .902 1959 Unknown [id number] 2.16.840.1.506585.3.579.2 .902 1959 Unknown [id number] 2.16.840.1.723483.3.579.2 .902 1959 Unknown [id number] 2.16.840.1.364056.3.579.2 .902 1959 Unknown [id number] 2.16.840.1.427454.3.579.2 .902 1959 Unknown [id number] 2.16.840.1.780711.3.579.2 .1069 1959 Unknown [id number] 2.16.840.1.377986.3.579.2 .1069 1959 Unknown [id number] 2.16.840.1.279184.3.579.2 .1069 1959 Unknown [id number] 2.16.840.1.189083.3.579.2 .1069 1959 Unknown [id number] 2.16.840.1.793106.3.579.2 .1069 1959 Unknown [id number] 2.16.840.1.043541.3.579.2 .903 1959 Unknown [id number] 2.16.840.1.805454.3.579.2 .903 1959 Unknown [id number] 2.16.840.1.284020.3.579.2 .903 1959 Unknown [id number] 2.16.840.1.696020.3.579.2 .903 1959 Unknown [id number] 2.16.840.1.132903.3.579.2 .903 1959 Unknown [id number] 2.16.840.1.626070.3.579.2 .903 1959 Unknown [id number] 2.16.840.1.481947.3.579.2 .1243 1959 Unknown [id number] 2.16.840.1.513821.3.579.2 .1243 1959 Unknown [id number] 2.16.840.1.473505.3.579.2 .1243 1959 Unknown [id number] 2.16.840.1.768100.3.579.2 .903 1959 Unknown [id number] 2.16.840.1.969886.3.579.2 .903 1959 Unknown [id number] 2.16.840.1.884793.3.579.2 .903 1959 Unknown [id number] 2.16.840.1.978457.3.579.2 .903 1959 Unknown [id number] 2.16.840.1.810180.3.579.2 .903 1959 Unknown [id number] 2.16.840.1.899479.3.579.2 .903 1959 Unknown [id number] 2.16.840.1.718987.3.579.2 .903 1959 Unknown [id number] 2.16.840.1.955436.3.579.2 .903 1959 Unknown [id number] 2.16.840.1.328954.3.579.2 .903 1959 Unknown [id number] 2.840.1.946190.3.579.2 .903 1959 Unknown [id number] 2..840.1.452552.3.579.2 .903 1959 Unknown [id number] 2.840.1.211670.3.579.2 .903 1959 Unknown [id number] 2..840.1.098367.3.579.2 .903 Private Health Insurance Private Health Insurance [id number] [id number] Unknown [id number] 2.840.1.434211.3.579.2 .462 Unknown [id number] 2.840.1.196370.3.579.2 .462 Unknown [id number] 2.840.1.221742.3.579.2 .462 Unknown [id number] 2.840.1.095067.3.579.2 .462 Unknown [id number] 2.840.1.005211.3.579.2 .462 Unknown [id number] 2.840.1.351517.3.579.2 .462 Unknown [id number] 2.840.1.839531.3.579.2 .462 Unknown [id number] 2.840.1.586491.3.579.2 .462 Unknown [id number] 2.840.1.161801.3.579.2 .462 Unknown [id number] 2.840.1.793004.3.579.2 .462 Unknown [id number] ..840.1.891803.3.579.2 .462 Social History Date Type Detail Facility Start: 12-30-2020 End: 04-13-2024 Tobacco smoking status NHIS Former smoker [facility] Start: 12-30-2020 End: 03-19-2025 Tobacco use and exposure Never used [facility] Start: 12-30-2020 End: 05-22-2025 Alcohol intake Current drinker of alcohol (finding) [facility] Start: 12-25-2020 End: 08-25-2022 History SDOH Alcohol Frequency 2 [facility] Start: 12-25-2020 End: 02-17-2021 History SDOH Alcohol Std Drinks 1 [facility] Start: 12-25-2020 Tobacco Comment QUIT IN 1999 [facility] Start: 1960 Sex Assigned At Not on file O [facility] Start: 01-03-2022 End: 01-15-2025 Exposure to SARS-CoV-2 (event) Not sure [facility] Start: 04-20-2022 End: 04-28-2023 Former smoker Former smoker [facility] Comment on above: smoked 2 packs for 2 5 years quit 1999; [employer]; daughter (1979); Start: 12-25-2020 End: 04-20-2022 Tobacco Comment QUIT IN 1999 [facility] Start: 12-14-2021 History SDOH Alcohol Comment occasionally [facility] Start: 08-27-1981 End: 08-27-2001 History of tobacco use Current smoker [facility] Work Phone: Start: 08-27-1981 End: 08-27-2001 History of tobacco use Cigarette Smoker [facility] Work Phone: Start: 07-01-2021 History SDOH Alcohol Comment occ wine [facility] Start: 12-23-2023 End: 02-08-2024 Tobacco smoking consumption unknown Start: 07-06-2022 End: 08-25-2022 History SDOH Alcohol Std Drinks 98 [facility] Start: 07-06-2022 History SDOH Physica l Activity MPS 4 [facility] Start: 07-06-2022 History SDOH Financial 5 [facility] Start: 07-06-2022 End: 08-25-2022 History SDOH Housing Unable to Pay 3 [facility] Start: 08-12-2022 Tobacco Comment d/c 08/27/01 [facility] Start: 08-02-2022 End: 08-12-2022 Exposure to SARS-CoV-2 (event) Yes [facility] Start: 08-24-2022 End: 04-28-2023 Humiliation, Afraid, Rape, and Kick questionnaire [HARK] [facility] Within the last year , have you been afraid of your partner or ex-partner? Patient refused [facility] Do you belong to any clubs or organizations such as temple groups, unions, fraDiveboard or athletic groups, or school groups? No [facility] Are you now , , , , never or living with a partner? Refused [facility] (I/We) worried wheth er (my/our) food would run out before (I/we) got money to buy more. DK or Refused [facility] Start: 12-25-2020 Gender identity Identifies as female gender (finding) [facility] Start: 12-25-2020 Sexual orientation Heterosexual (fin ding) [facility] Start: 02-23-2023 End: 05-21-2025 Alcohol intake Ex-drinker (finding) [facility] Start: 05-16-2023 Tobacco smoking stat [facility] Never smoked tobacco [facility] Start: 05-16-2023 Alcohol Comment [facility] Are you now , , , , never or living with a partner? Never [facility] How often to you hav e a drink containing alcohol? Monthly or less [facility] How many standard drinks containing alcohol do you have on a typical day? 1 or 2 [facility] How often do you hav e 6 or more drinks on 1 occasion? Never [facility] How hard is it for y ou to pay for the very basics like food, housing, medical care, and heating Somewhat hard [facility] Do you feel stress - tense, restless, nervous, or anxious, or unable to sleep at night because your mind is troubled all the time - these days [OSQ] Only a little [facility] (I/We) worried wheth er (my/our) food would run out before (I/we) got money to buy more. Never true [facility] Start: 1960 Sex Assigned At Female W leeroy [facility] Start: 02-26-2025 Sex Female (finding) [facility] NEGATED: Highlighted row - - [facility] Work Phone: Medical Equipment Procedure Code Equipment Code Equipment Origin al Text Equipment Identifier Dates Collagen haemost atic agent, non-antimicrobial ()[id number] FDA Start: 02-01-2024 Goals Date Patient Goal Desired Activity /State Personal health goal Comment on above: Formatting of this n ote might be different from the original. Home care case management, long-term care, and healthcare reform. In: Elisa BATEMAN, society editor. The Power Wheelchair Mechanic's Handbook. 6th ed. [place], [place]: [employer], 2017:209-236.Michelle [employer]. Holley crump and economics of community health services. In: Ehsan Harris, society editor. Community and Public Health Nursing Promoting the Public's Health. 9th ed. [place], [place]: [employer], 2018:165-231.Address ing social determinants: clinical versus nonclinical issues. In: Fredi Mendez, Kirk R, Terri C, editors. [facility]'s Integrated Case Management. [place], [place]: [employer], 2018:139-148. Notes: Personal health goal Personal health goal Functional Status Date Assessment Result Facility 12-28-2021 Are you deaf, or do you have serious difficulty hearing No 12/28/2021 3:48 PM Brad Smart RN No [facility] 12-28-2021 Are you blind, or do you have serious difficulty seeing, even when wearing glasses No 12/28/2021 3:48 PM Brad Smart RN No [facility] 12-28-2021 Do you have serious difficulty walking or climbing stairs No 12/28/2021 3:48 PM Brad Smart RN No [facility] 12-28-2021 Do you have difficul ty dressing or bathing No 12/28/2021 3:48 PM Brad Smart RN No [facility] 12-28-2021 Because of a physica l, mental, or emotional condition, do you have difficulty doing errands alone such as visiting a physician's office or shopping No 12/28/2021 3:48 PM Brad Smart, ALICIA No [facility] NEGATED: Highlighted row Functional performance Functional status health issues are not documented [facility] Work Phone: Mental Status Date Assessment Result Facility 02-13-2024 Cognitive function Awake;Alert;A [employer] Work Phone: 02-10-2024 Cognitive function Voice/Name [facility] Work Phone: 02-01-2024 Cognitive function Voice/Name [facility] Work Phone: 12-28-2021 Because of a physical, mental, or emotional condition, do you have serious difficulty concentrating, remembering, or making decisions No 12/28/2021 3:48 PM Brad Smart RN No [facility] NEGATED: Highlighted row Cognitive function [Interpretation] Cognitive status health issues are not documented Disease [facility] Work Phone: Clinical Notes 02-11-2010 to 06-19-2025 Telephone Encounter - Bladimir Mina RN - 05/29/2025 2:45 PM EDTTelephone Encounter - Bladimir Mina RN - 05/29/2025 2:45 PM CLYDE Mercer DPM - 05/21/2025 4:17 PM EDTActions Note Date & Type Note Facility 06-19-2025 Note HNO ID: [id number] Author: ABDELRAHMAN CONRAD MD Service: ? Author Type: Physician Type: Progress Notes Filed: 06/19/2025 08:52 Note Text: 64 year old female from [place], [place] referred by Dr. Zavala (vascular medicine) for evaluation of lymphedema affecting bilateral lower extremities, R > L. She has been following with vascular medicine who diagnosed her clinically with lymphedema in March 2025. Ordered pump, seen by Dr. Zavala [facility] vascular medicine She had swelling since a few months Seen by Susan Buck in cardiology patient has a h/o 11 DE with 11 cardiac caths. Per patient, last DE 6-7 years ago . Patient also s/p CABGx3 with reversed saphenous [place] [address] Braulio Araya. Patient reports grafts failed 1 week after surgery and she had to undergo a second operation. Lymphedema History History of lymphatic injury? No If so, what was the injury? N/a History of cancer? How was it treated? No Lymph node removal? If so, where and how many? No Did you have radiation? If so, where? No Onset of swelling: As above Trigger of swelling: As above Does swelling disappear in morning after elevation? Goes down by does not disappear Had infection in affected body part? denies If so, when was first episode, how many times a year? N/a Family history of lymphedema? denies Decreased ability in critical thinking, memory, mentation, brain fog? denies Lymphedema Diagnosis How was your lymphedema diagnosis made? Clinically Have you had technetium-99 lymphoscintigraphy? Finding? When? No Have you had ICG lymphography? Finding? When? No History Related to Venous System Ever been diagnosed with venous insufficiency? Denies By what test? N/a If so, how was it treated? N/a Ever been diagnosed with May Thurner syndrome? Treated? Denies Lymphedema Treatment Had lymphedema therapy? No, not covered by insurance When did you last see a therapist? N/a Therapist? N/a Currently wear compression garment? No, attempted in the past with minimal improvement Type of knit (circular vs flat) N/a What compression class? N/a Wear time? N/a Wear night garment? What type? No Using pneumatic compression Denies, ordered Had surgery for lymphedema? denies What surgery? By whom? N/a How has the surgery worked? N/a Lymphedema Functional Assessment 1) How has lymphedema affected your daily activity? Reports difficulty with walking, has pain and heaviness 2) How has lymphedema affected your work? 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 Has a hard time putting shoes on 3) Name one thing lymphedema has prevented you from doing and you want to do the most. Walking normally 4) How much has lymphedema impacted your life - little, somewhat, or significantly so. Somewhat 5) From 1 - 5 with 5 being the best and 1 being the worst, please rate your quality of life. 5 Past Medical History PAST MEDICAL HISTORY Diagnosis Date Acute myocardial infarction, unspecified site 08/27/2001 Myocardial Infarction Bipolar disorder, unspecified (HCC) Compression fracture of L3 vertebra (HCC) Coronary artery disease Coronary atherosclerosis due to lipid rich plaque Depressive disorder, not elsewhere classified Generalized osteoarthrosis, unspecified site Hypertension Leg swelling Osteoporosis, unspecified Past Surgical History PAST SURGICAL HISTORY Procedure Laterality Date CORONARY ARTERY BYP W/VEIN AND ARTERY GRAFT 4 VEIN PAST SURGICAL HISTORY OF menisectomy left knee PAST SURGICAL HISTORY OF arthroscopy both knees 3 times PAST SURGICAL HISTORY OF bunion right great toe repair PAST SURGICAL HISTORY OF Right hip PAST SURGICAL HISTORY OF Bilateral foot surgery STENT PLACEMENT 4 stents, unsucessful She takes amoxicillin 875 mg and will need to for the rest of her life d/t back surgery where she was septic, Dr. Valdez in [place] Height: 5 ft 3 in Weight: 184 lbs Body Mass Index: Body mass index is 32.59 kg/m?. Allergy to shellfish/iodine? Yes, anaphylaxis - reports requiring pre-medication prior to procedures involving iodine Consult placed for lymphedema therapy STAFF COMMENT I have seen and examined the patient, and I agree with the assessment and plan as described above. 64 yo female with cardiac history and lymphedema of R leg, seen by vascular, referred to us for evaluation for surgery. Not wearing compression garment and has not had lymphedema therapy due to insurance not covering. Exam demonstrated bilateral lower extremity with edema, tense 3+ in R lower leg and 1+ with obvious lipodystrophy in L lower leg. My impression is bilateral lower extremity lymphedema in a patient who has not had proper lymphedema therapy. BMI 33 and medical co-morbidities make surgery not appropriate as first line intervention. Will refer for lymphedema therapy. Recommended st (more content not included)... [facility] 05-29-2025 Telephone encounter Note Spoke with patient and explained how to measure. She is comfortable and will do today and send measurements via [employer] [facility] 05-29-2025 Miscellaneous Notes Spoke with patient and explained how to measure. She is comfortable and will do today and send measurements via mychart Orders faxed to [facility] [employer] at [phone] Transmission completed Orders for compression stockings and lymphedema pumps completed Once signed will faxed [phone] documented in this encounter [facility] 05-28-2025 Telephone encounter Note Orders faxed to [facility] at [phone] Transmission completed [facility] 05-22-2025 Telephone encounter Note Orders for compression stockings and lymphedema pumps completed Once signed will faxed [phone] [facility] 05-22-2025 Miscellaneous Notes RN reached out to Gricelda Norman regarding request for lymphedema surgery consult. They are agreeable to answering triage questions at this time. Consultation requested by Dr. Crissy Zavala DO (Vascular Surgery) for an opinion regarding secondary lymphedema. My final recommendations will be communicated back to the requesting physician by way of shared Medical record or letter to requesting physician via US mail. General Health Questions: -DM? No Last A1C? 5.4 on 02/03/23 -History of kidney disease? No -History of congestive heart failure? Yes, prescribed bumex however and has been taking this since 2003 when she switched regimen from lasix -History of stroke or heart attack? Yes, patient has a h/o 11 DE with 11 cardiac caths. Per patient, last DE 6-7 years ago . Patient also s/p CABGx3 with reversed saphenous vein graft [place] [address] Braulio Araya. Patient reports grafts failed 1 week after surgery and she had to undergo a second operation. -Have you ever been diagnosed or treated for blood clots in the legs or lungs? No -Any history of organ transplant? No -Are you currently taking any immunosuppressant medications? No -Do you have a cancer diagnosis? No -Other relevant medication comorbidities our team should be aware of? - sister w/ h/o stroke - multiple surgeries requiring hardware (knee, back, shoulder, foot) PAST MEDICAL HISTORY Diagnosis Date Acute myocardial infarction, unspecified site 08/27/2001 Myocardial Infarction Bipolar disorder, unspecified (HCC) Compression fracture of L3 vertebra (HCC) Coronary artery disease Coronary atherosclerosis due to lipid rich plaque Depressive disorder, not elsewhere classified Generalized osteoarthrosis, unspecified site Hypertension Leg swelling Osteoporosis, unspecified -Height? 5'2 -Weight? 184 lb -BMI? 33.7 -Allergies to shellfish or iodine? Yes - anaphylactic - pt reports having to take medication prior to procedures with iodine -Current smoker? No Lymphedema Diagnosis: -Where is your swelling located? BLE, R > L -How long have you had a diagnosis of lymphedema? March 2025 -Who diagnosed you with lymphedema? Dr. Zavala -How were you diagnosed with lymphedema? Clinical presentation -Have you been evaluated by a Vascular Medicine Team? Yes, patient has been following with Dr. Zavala -Have you ever been diagnosed with venous insufficiency? Yes -Have you had imaging that looked at your lymphatic system? No US VENOUS INCOMPETENCY UNL VAS LAB (04/11/2025 2:26 PM) IMPRESSION RIGHT SIDE - DEEP VEINS Negative for acute deep vein thrombosis in vessels visualized. Positive for valvular incompetency in the common femoral vein. Negative for valvular incompetency in the femoral vein and popliteal vein. Multiple enlarged lymph nodes noted in the groin. The largest measures 1.8 x 1.1 x 1.2 cm. RIGHT SIDE - SUPERFICIAL VEINS Previous stripping of the great saphenous vein. Harvested for bypass from proximal thigh to proximal calf. Reflux noted in the great saphenous vein from proximal to mid calf. Positive for valvular incompetency in the anterior accessory great saphenous vein. Straight segment noted from junction to mid thigh measuring 24.2 cm. Positive for valvular incompetency in the small saphenous vein. LEFT SIDE - DEEP VEINS Spontaneous and respirophasic flow noted in the common femoral vein. PVR ANK/COLLINS/TOE ANIL VAS LAB (04/11/2025 2:55 PM) IMPRESSION RIGHT SIDE Resting right ankle brachial index: 1.24 Normal ankle brachial index at rest in the right leg. Right ankle: Normal at rest. LEFT SIDE Resting left ankle brachial index: 1.24 Normal ankle brachial index at rest in the left leg. Left ankle: Normal at rest. Lymphedema Management: -Have you ever attempted Lymphedema therapy? No d/t insurance issues -Do you wear compression garments or use a pneumatic compression pump? Unable to tolerate compression BMI RESTRICTIONS: ML: I reviewed Dr. Bull's role as a lymphedema surgeon, and discussed that he does not offer conservative management of lymphedema. With surgery, he has requirements in place including BMI of 32 or less prior to surgical intervention. Dr. Bull advises that patients reduce their weight where the height/weight is calculated to be a BMI of 32 or less. His surgeries for lymphedema are limited to BMI of 32 or below due to increased risks of post-operative complications including seroma, hematomas, infection, wound dehiscence and wound necrosis associated with elevated BMIs. It is recommended that patients reduce weight to BMI of 32 or less prior to surgical consult, as weight loss can significantly impact surgical recommendations, plan, and outcome. We are happy to offer referrals to [facility] dieticians, beck tender, or our endocrine weight management program for assistance with BMI reduction. Another good resource is PCP who can connect patient to local resources. In the meantime, we recommend ongoing lymphedema therapy for conservative management of swelling. To find a lymphedema therapist near you, utilize the website [email or web address] Patient would like to proceed with in person evaluation for lymphedema. - Patient informed of BMI requirement to meet with surgeon and would like to be seen by ZEE to begin process for optimizing for surgery. RN discussed the purpose of the consultation with our nurse practitioner will be to discuss steps to becoming a surgical candidate and direct her to the proper departments to help with conservative management of lymphedema, with the goal of optimizing her for surgery in order to meet with a surgeon for surgical evaluation. - RN discussed like likelihood of needing cardiac clearance prior to any future surgical procedure due to her significant history of cardiac issues. Patient verbalized understanding. Wendie Boykin RN May 22, 2025 1:19 PM documented in this encounter [facility] 05-22-2025 Telephone encounter Note RN reached out to Gricelda Norman regarding request for lymphedema surgery consult. They are agreeable to answering triage questions at this time. Consultation requested by Dr. Crissy Zavala DO (Vascular Surgery) for an opinion regarding secondary lymphedema. My final recommendations will be communicated back to the requesting physician by way of shared Medical record or letter to requesting physician via US mail. General Health Questions: -DM? No Last A1C? 5.4 on 02/03/23 -History of kidney disease? No -History of congestive heart failure? Yes, prescribed bumex however and has been taking this since 2003 when she switched regimen from lasix -History of stroke or heart attack? Yes, patient has a h/o 11 DE with 11 cardiac caths. Per patient, last DE 6-7 years ago . Patient also s/p CABGx3 with reversed saphenous vein [place] [address] Braulio Araya. Patient reports grafts failed 1 week after surgery and she had to undergo a second operation. -Have you ever been diagnosed or treated for blood clots in the legs or lungs? No -Any history of organ transplant? No -Are you currently taking any immunosuppressant medications? No -Do you have a cancer diagnosis? No -Other relevant medication comorbidities our team should be aware of? - sister w/ h/o stroke - multiple surgeries requiring hardware (knee, back, shoulder, foot) PAST MEDICAL HISTORY Diagnosis Date Acute myocardial infarction, unspecified site 08/27/2001 Myocardial Infarction Bipolar disorder, unspecified (HCC) Compression fracture of L3 vertebra (HCC) Coronary artery disease Coronary atherosclerosis due to lipid rich plaque Depressive disorder, not elsewhere classified Generalized osteoarthrosis, unspecified site Hypertension Leg swelling Osteoporosis, unspecified -Height? 5'2 -Weight? 184 lb -BMI? 33.7 -Allergies to shellfish or iodine? Yes - anaphylactic - pt reports having to take medication prior to procedures with iodine -Current smoker? No Lymphedema Diagnosis: -Where is your swelling located? BLE, R > L -How long have you had a diagnosis of lymphedema? March 2025 -Who diagnosed you with lymphedema? Dr. Zavala -How were you diagnosed with lymphedema? Clinical presentation -Have you been evaluated by a Vascular Medicine Team? Yes, patient has been following with Dr. Zavala -Have you ever been diagnosed with venous insufficiency? Yes -Have you had imaging that looked at your lymphatic system? No US VENOUS INCOMPETENCY UNL VAS LAB (04/11/2025 2:26 PM) IMPRESSION RIGHT SIDE - DEEP VEINS Negative for acute deep vein thrombosis in vessels visualized. Positive for valvular incompetency in the common femoral vein. Negative for valvular incompetency in the femoral vein and popliteal vein. Multiple enlarged lymph nodes noted in the groin. The largest measures 1.8 x 1.1 x 1.2 cm. RIGHT SIDE - SUPERFICIAL VEINS Previous stripping of the great saphenous vein. Harvested for bypass from proximal thigh to proximal calf. Reflux noted in the great saphenous vein from proximal to mid calf. Positive for valvular incompetency in the anterior accessory great saphenous vein. Straight segment noted from junction to mid thigh measuring 24.2 cm. Positive for valvular incompetency in the small saphenous vein. LEFT SIDE - DEEP VEINS Spontaneous and respirophasic flow noted in the common femoral vein. PVR ANK/COLLINS/TOE ANIL VAS LAB (04/11/2025 2:55 PM) IMPRESSION RIGHT SIDE Resting right ankle brachial index: 1.24 Normal ankle brachial index at rest in the right leg. Right ankle: Normal at rest. LEFT SIDE Resting left ankle brachial index: 1.24 Normal ankle brachial index at rest in the left leg. Left ankle: Normal at rest. Lymphedema Management: -Have you ever attempted Lymphedema therapy? No d/t insurance issues -Do you wear compression garments or use a pneumatic compression pump? Unable to tolerate compression BMI RESTRICTIONS: ML: I reviewed Dr. Bull's role as a lymphedema surgeon, and discussed that he does not offer conservative management of lymphedema. With surgery, he has requirements in place including BMI of 32 or less prior to surgical intervention. Dr. Bull advises that patients reduce their weight where the height/weight is calculated to be a BMI of 32 or less. His surgeries for lymphedema are limited to BMI of 32 or below due to increased risks of post-operative complications including seroma, hematomas, infection, wound dehiscence and wound necrosis associated with elevated BMIs. It is recommended that patients reduce weight to BMI of 32 or less prior to surgical consult, as weight loss can significantly impact surgical recommendations, plan, and outcome. We are happy to offer referrals to [facility] dieticians, beck tender, or our endocrine weight management program for assistance with BMI reduction. Another good resource is PCP who can connect patient to local resources. In the meantime, we recommend ongoing lymphedema therapy for conservative management of swelling. To find a lymphedema therapist near you, utilize the website [email or web address] Patient would like to proceed with in person evaluation for lymphedema. - Patient informed of BMI requirement to meet with surgeon and would like to be seen by ZEE to begin process for optimizing for surgery. RN discussed the purpose of the consultation with our nurse practitioner will be to discuss steps to becoming a surgical candidate and direct her to the proper departments to help with conservative management of lymphedema, with the goal of optimizing her for surgery in order to meet with a surgeon for surgical evaluation. - RN discussed like likelihood of needing cardiac clearance prior to any future surgical procedure due to her significant history of cardiac issues. Patient verbalized understanding. Wendie Boykin RN May 22, 2025 1:19 PM [facility] 05-21-2025 Note Established Patient Visit CLYDE Tena DPM Patient Name: Gricelda Norman. . Date of : 1960, 64 y.o.. Gender: female. Subjective: Patient is a pleasant 64-year-old female who presents to clinic today for follow-up of chronic right foot and ankle pain. Patient had an injection performed by me over 4 months ago. Patient relates that it was not super helpful. Overall the foot is been feeling okay with exception to she has substantial lymphedema present. She is working on getting this sorted at the [facility]. Patient denies any current fever, chills, nausea, vomiting, chest pain calf pain or shortness of breath. Patient has no other pedal complaints at this time. Physical Examination: BP (!) 147/77 Pulse 74 Temp 98.7 degrees F (37.1 degrees C) (Tympanic) Resp (!) 1 General Appearance: Alert, cooperative, no distress, appears stated age. Podiatric Exam Vascular: DP and PT pulses lightly palpable. CFT is brisk to expose digits. Absent hair growth feet. Skin temperature is warm to cool from proximal tibial tuberosity distal digits. Bilateral pitting edema with right worse than left essentially to the entirety extremity. Neurological: Epicritic and protopathic sensation intact to bilateral lower extremities. Dermatologic: Skin is largely atrophic with mild hyperpigmentation circumferentially likely secondary to chronic venous hypertension. Substantial edema noted of the right lower extremity greater than the left. Musculoskeletal: Bilateral foot and ankle overall rectus alignment. Muscle strength testing 5 out of 5 to all tested muscular's. Ankle joint range of motion limited with knee extended to slight increase in knee flex. Decree subtalar joint midtarsal range of motion. Patient has pain globally around the ankle subtalar joint ATFL AITFL anterior ankle anterior medial ankle PT tendon. Mild pain to the peroneal tendon. Less pain to the distal foot and tarsometatarsal joints. Fairly significant pain to the dorsal TN joint. Diagnoses: 1. Lymphedema Miscellaneous DME Equipment 2. Peripheral edema Miscellaneous DME Equipment 3. Chronic pain of right ankle Miscellaneous DME Equipment 4. Right foot pain Miscellaneous DME Equipment 5. Bilateral foot pain Miscellaneous DME Equipment 6. Callus of foot Miscellaneous DME Equipment Imagin views of the bilateral ankles reviewed today AP ankle mortise and lateral.. No acute fracture or dislocation of note. Persistent visualization of significant arthritis noted through the midfoot and rear foot. Subtle subluxation of the ankle joint distally. Subchondral sclerosis noted through the midtarsal joints and TN joint. Ankle joint is overall fairly concentric mild subchondral sclerosis but largely maintenance of joint height mild narrowing laterally greater than medially. Evidence of substantial edema noted of the right lower extremity greater than left. Assessment/Plan: Patient was seen and evaluated. Discussed all clinical and radiographic findings Educated patient on etiology and pathophysiology associated various of maladies for Discussed very treatment options with patient. Rx for lymphedema pumps Patient to see out her referral to the lymphedema clinic. Patient was consented and calluses were debrided down to normotrophic tissue to patient satisfaction. Patient expressed relief upon doing this. This was done consistent with a every 8 modifier. Patient to follow-up with me as needed This note was partially created using voice recognition software and is inherently subject to errors including those of syntax and sound-alike substitutions which may escape proofreading. In such instances, original meaning may be extrapolated by contextual derivation. CLYDE Tena DPM Podiatric Foot & Ankle Surgery AUTHENTICATED BY [employer], [place] 05/21/2025 16:23:04 [facility] 05-21-2025 History of Present illness Narrative Images from the original note were not included. Established Patient Visit CLYDE Tena DPM Patient Name: Gricelda Norman. . Date of : 1960, 64 y.o.. Gender: female. Subjective: Patient is a pleasant 64-year-old female who presents to clinic today for follow-up of chronic right foot and ankle pain. Patient had an injection performed by me over 4 months ago. Patient relates that it was not super helpful. Overall the foot is been feeling okay with exception to she has substantial lymphedema present. She is working on getting this sorted at the [facility]. Patient denies any current fever, chills, nausea, vomiting, chest pain calf pain or shortness of breath. Patient has no other pedal complaints at this time. Physical Examination: BP (!) 147/77 Pulse 74 Temp 98.7 F (37.1 C) (Tympanic) Resp (!) 1 General Appearance: Alert, cooperative, no distress, appears stated age. Podiatric Exam Vascular: DP and PT pulses lightly palpable. CFT is brisk to expose digits. Absent hair growth feet. Skin temperature is warm to cool from proximal tibial tuberosity distal digits. Bilateral pitting edema with right worse than left essentially to the entirety extremity. Neurological: Epicritic and protopathic sensation intact to bilateral lower extremities. Dermatologic: Skin is largely atrophic with mild hyperpigmentation circumferentially likely secondary to chronic venous hypertension. Substantial edema noted of the right lower extremity greater than the left. Musculoskeletal: Bilateral foot and ankle overall rectus alignment. Muscle strength testing 5 out of 5 to all tested muscular's. Ankle joint range of motion limited with knee extended to slight increase in knee flex. Decree subtalar joint midtarsal range of motion. Patient has pain globally around the ankle subtalar joint ATFL AITFL anterior ankle anterior medial ankle PT tendon. Mild pain to the peroneal tendon. Less pain to the distal foot and tarsometatarsal joints. Fairly significant pain to the dorsal TN joint. Diagnoses: 1. Lymphedema Miscellaneous DME Equipment 2. Peripheral edema Miscellaneous DME Equipment 3. Chronic pain of right ankle Miscellaneous DME Equipment 4. Right foot pain Miscellaneous DME Equipment 5. Bilateral foot pain Miscellaneous DME Equipment 6. Callus of foot Miscellaneous DME Equipment Imagin views of the bilateral ankles reviewed today AP ankle mortise and lateral.. No acute fracture or dislocation of note. Persistent visualization of significant arthritis noted through the midfoot and rear foot. Subtle subluxation of the ankle joint distally. Subchondral sclerosis noted through the midtarsal joints and TN joint. Ankle joint is overall fairly concentric mild subchondral sclerosis but largely maintenance of joint height mild narrowing laterally greater than medially. Evidence of substantial edema noted of the right lower extremity greater than left. Assessment/Plan: Patient was seen and evaluated. Discussed all clinical and radiographic findings Educated patient on etiology and pathophysiology associated various of maladies for Discussed very treatment options with patient. Rx for lymphedema pumps Patient to see out her referral to the lymphedema clinic. Patient was consented and calluses were debrided down to normotrophic tissue to patient satisfaction. Patient expressed relief upon doing this. This was done consistent with a every 8 modifier. Patient to follow-up with me as needed This note was partially created using voice recognition software and is inherently subject to errors including those of syntax and sound-alike substitutions which may escape proofreading. In such instances, original meaning may be extrapolated by contextual derivation. CLYDE Tena DPM Podiatric Foot & Ankle Surgery documented in this encounter [facility] 05-15-2025 Telephone encounter Note Reached out to Gricelda Norman regarding request for lymphedema surgery consult. No answer, left VM informing patient of triage questions asked prior to scheduling a surgical consult. Asked that they reach back out when they have a moment to answer questions. Call back number provided. Attempt #1: Lymphedema pool to continue to monitor. Wendie Boykin RN May 15, 2025 12:04 PM [facility] 05-15-2025 Miscellaneous Notes Reached out to Gricelda Norman regarding request for lymphedema surgery consult. No answer, left VM informing patient of triage questions asked prior to scheduling a surgical consult. Asked that they reach back out when they have a moment to answer questions. Call back number provided. Attempt #1: Lymphedema pool to continue to monitor. Wendie Boykin RN May 15, 2025 12:04 PM documented in this encounter [facility] 05-14-2025 Note HNO ID: [id number] Author: CRISSY ZAVALA DO Service: ? Author Type: Physician Type: Progress Notes Filed: 05/14/2025 09:26 Note Text: [facility] [place] DEPARTMENT OF VASCULAR SURGERY OUTPATIENT VISIT DATE May 14, 2025 OUTPATIENT VISIT TYPE ESTABLISHED SERVICE DATE: 05/14/2025 SERVICE TIME: 8:57 AM PRIMARY CARE PHYSICIAN: Marietta Johnson DO HISTORY OF PRESENT ILLNESS: Ms. Norman is a 64 year old female who presents today for a vascular surgery follow-up visit on secondary lymphedema. She continues to have significant edema despite non-interventional therapy including compression, elevation, and exercise. Right hightower wound is slowly healing. Denies drainage. She does admit to some tenderness especially to palpation. Has noticed that her swelling is slightly worse and she notices some discoloration at right ankle. PAST MEDICAL HISTORY Diagnosis Date Acute myocardial [...] foot surgery STENT PLACEMENT 4 stents, unsucessful SOCIAL HISTORY Social History Tobacco Use Smoking status: Former Current packs/day: 0.00 Average packs/day: 1 pack/day for 20.0 years (20.0 ttl pk-yrs) Types: Cigarettes Start date: 08/27/1981 Quit date: 08/27/2001 Years since quittin.7 Smokeless tobacco: Never Tobacco comments: d/c 08/27/01 Vaping Use Vaping status: Never Used Substance Use Topics Alcohol use: Yes Comment: [facility] [facility] Drug use: No MEDICATIONS: amoxicillin (AMOXIL) 875 mg tablet 1 tablet Oral Twice a day for 90 days clobetasol (TEMOVATE) 0.05 % cream 1 Application. pramipexole (MIRAPEX) 1.5 mg tablet Take 1.5 mg by mouth daily at bedtime. traZODone (DESYREL) 100 mg tablet Take 100 mg by mouth daily at bedtime. 2 tabs at bedtime vit B complex no.12/niacin,B3, (VITAMIN B COMPLEX [...] Take 81 mg by mouth once daily. ALLERGIES: ALLERGIES Allergen Reactions Adhesive Rash, Itching Plastic bandaids Iv Dye [Iodine] Anaphylaxis Neosporin [Neomycin* Rash, Itching Penicillins Other: See Comments convulsions PHYSICAL EXAM: BP 116/71 (BP Site: Left Arm, BP Position: Sitting, BP Cuff Size: Regular Adult) Pulse (!) 57 SpO2 98% General: Alert and oriented Extremities: Edema - right leg pitting edema, small ulceration on proximal hightower, mild hyperpigmentation Neurological: Normal cognition and motor skills. Vascular: Dorsalis Pedal Right: Normal - Left: Normal Diagnostic tests reviewed for today's visit: Most recent labs Most recent imaging PVRs- normal Venous reflux- RIGHT SIDE - DEEP VEINS Negative for acute deep vein thrombosis in vessels visualized. Positive for valvular incompetency in the common femoral vein. Negative for valvular incompetency in the femoral vein and popliteal vein. Multiple enlarged lymph nodes noted in the groin. The largest measures 1.8 x 1.1 x 1.2 cm. RIGHT SIDE - SUPERFICIAL VEINS Previous stripping of the great saphenous vein. Harvested for bypass from proximal thigh to proximal calf. Reflux noted in the great saphenous vein from proximal to mid calf. Positive for valvular incompetency in the anterior accessory great saphenous vein. Straight segment noted from junction to mid thigh measuring 24.2 cm. Positive for valvular incompetency in the small saphenous vein. LEFT SIDE - DEEP VEINS Spontaneous and respirophasic flow noted in the common femoral vein. IMPRESSION: Ms. Norman is a 64 year old female with secondary lymphedema . PLAN and RECOMMENDATIONS: Gricelda would benefit from compression pumps to hel (more content not included)... [facility] 05-14-2025 History of Present illness Narrative Images from the original note were not included. [facility] [place] DEPARTMENT OF VASCULAR SURGERY OUTPATIENT VISIT DATE May 14, 2025 OUTPATIENT VISIT TYPE ESTABLISHED SERVICE DATE: 05/14/2025 SERVICE TIME: 8:57 AM PRIMARY CARE PHYSICIAN: Marietta Johnson DO HISTORY OF PRESENT ILLNESS: Ms. Norman is a 64 year old female who presents today for a vascular surgery follow-up visit on secondary lymphedema. She continues to have significant edema despite non-interventional therapy including compression, elevation, and exercise. Right hightower wound is slowly healing. Denies drainage. She does admit to some tenderness especially to palpation. Has noticed that her swelling is slightly worse and she notices some discoloration at right ankle. PAST MEDICAL HISTORY Diagnosis Date Acute myocardial [...] foot surgery STENT PLACEMENT 4 stents, unsucessful SOCIAL HISTORY Social History Tobacco Use Smoking status: Former Current packs/day: 0.00 Average packs/day: 1 pack/day for 20.0 years (20.0 ttl pk-yrs) Types: Cigarettes Start date: 08/27/1981 Quit date: 08/27/2001 Years since quittin.7 Smokeless tobacco: Never Tobacco comments: d/c 08/27/01 Vaping Use Vaping status: Never Used Substance Use Topics Alcohol use: Yes Comment: [facility] Drug use: No MEDICATIONS: amoxicillin (AMOXIL) 875 mg tablet 1 tablet Oral Twice a day for 90 days clobetasol (TEMOVATE) 0.05 % cream 1 Application. pramipexole (MIRAPEX) 1.5 mg tablet Take 1.5 mg by mouth daily at bedtime. traZODone (DESYREL) 100 mg tablet Take 100 mg by mouth daily at bedtime. 2 tabs at bedtime vit B complex no.12/niacin,B3, (VITAMIN B COMPLEX [...] Take 81 mg by mouth once daily. ALLERGIES: ALLERGIES Allergen Reactions Adhesive Rash, Itching Plastic bandaids Iv Dye [Iodine] Anaphylaxis Neosporin [Neomycin* Rash, Itching Penicillins Other: See Comments convulsions PHYSICAL EXAM: BP 116/71 (BP Site: Left Arm, BP Position: Sitting, BP Cuff Size: Regular Adult) Pulse (!) 57 SpO2 98% General: Alert and oriented Extremities: Edema - right leg pitting edema, small ulceration on proximal hightower, mild hyperpigmentation Neurological: Normal cognition and motor skills. Vascular: Dorsalis Pedal Right: Normal - Left: Normal Diagnostic tests reviewed for today's visit: Most recent labs Most recent imaging PVRs- normal Venous reflux- RIGHT SIDE - DEEP VEINS Negative for acute deep vein thrombosis in vessels visualized. Positive for valvular incompetency in the common femoral vein. Negative for valvular incompetency in the femoral vein and popliteal vein. Multiple enlarged lymph nodes noted in the groin. The largest measures 1.8 x 1.1 x 1.2 cm. RIGHT SIDE - SUPERFICIAL VEINS Previous stripping of the great saphenous vein. Harvested for bypass from proximal thigh to proximal calf. Reflux noted in the great saphenous vein from proximal to mid calf. Positive for valvular incompetency in the anterior accessory great saphenous vein. Straight segment noted from junction to mid thigh measuring 24.2 cm. Positive for valvular incompetency in the small saphenous vein. LEFT SIDE - DEEP VEINS Spontaneous and respirophasic flow noted in the common femoral vein. IMPRESSION: Ms. Norman is a 64 year old female with secondary lymphedema . PLAN and RECOMMENDATIONS: Gricelda would benefit from compression pumps to help manage her lymphedema as she has tried compression, elevation and exercise without significant improvement in symptoms and to help prevent further skin breakdown She would also benefit from compression wraps as she has some difficulty with donning compression stockings Recommend follow up in 3 months SIGNATURE: Crissy Zavala DO PATIENT NAME: Gricelda Norman DATE: May 14, 2025 TIME: 8:57 AM documented in this encounter [facility] 05-07-2025 Telephone encounter Note Reason for call: PT called and she would like to schedule an appointment with vascular surgery. Home and cell number:[phone] Diagnosis:Lymphedema Blake Macias. [facility] 05-07-2025 Miscellaneous Notes Reason for call: PT called and she would like to schedule an appointment with vascular surgery. Home and cell number:[phone] Diagnosis:Lymphedema Blake Macias. documented in this encounter [facility] 04-16-2025 Note HNO ID: [id number] Author: CRISSY ZAVALA DO Service: ? Author Type: Physician Type: Progress Notes Filed: 05/14/2025 08:58 Note Text: [facility] [place] DEPARTMENT OF VASCULAR SURGERY OUTPATIENT VISIT DATE April 16, 2025 OUTPATIENT VISIT TYPE ESTABLISHED SERVICE DATE: 04/16/2025 SERVICE TIME: 3:28 PM PRIMARY CARE PHYSICIAN: Marietta Johnson DO HISTORY OF PRESENT ILLNESS: Ms. Norman is a 64 year old female who presents today for a vascular surgery follow-up visit after reflux testing. She continues to have swelling bilaterally- worse on right. She was unable to tolerate compression for any period of time PAST MEDICAL HISTORY Diagnosis Date Acute myocardial [...] foot surgery STENT PLACEMENT 4 stents, unsucessful SOCIAL HISTORY Social History Tobacco Use Smoking status: Former Current packs/day: 0.00 Average packs/day: 1 pack/day for 20.0 years (20.0 ttl pk-yrs) Types: Cigarettes Start date: 08/27/1981 Quit date: 08/27/2001 Years since quittin.6 Smokeless tobacco: Never Tobacco comments: d/c 08/27/01 Vaping Use Vaping status: Never Used Substance Use Topics Alcohol use: Yes Comment: [facility] wine Drug use: No MEDICATIONS: amoxicillin (AMOXIL) 875 mg tablet 1 tablet Oral Twice a day for 90 days clobetasol (TEMOVATE) 0.05 % cream 1 Application. meloxicam (MOBIC) 15 mg tablet Take 15 mg by mouth once daily. pramipexole (MIRAPEX) 1.5 mg tablet Take 1.5 mg by mouth daily at bedtime. traZODone (DESYREL) 100 mg tablet Take 100 mg by mouth daily at bedtime. 2 tabs at bedtime vit B complex no.12/niacin,B3, (VITAMIN B COMPLEX [...] Take 81 mg by mouth once daily. ALLERGIES: ALLERGIES Allergen Reactions Adhesive Rash, Itching Plastic bandaids Iv Dye [Iodine] Anaphylaxis Neosporin [Neomycin* Rash, Itching Penicillins Other: See Comments convulsions PHYSICAL EXAM: BP 136/82 (BP Cuff Size: Regular Adult) Pulse (!) 57 SpO2 96% General: Alert and oriented Extremities: Edema bilaterally- right greater than left- See Get Images for photo Right leg wounds- superficial [id number], 1cmx0.5cm Left leg anterior hightower- superficial 4cmx0.5cm Leg measurements (cm) Right ankle 30, calf 44, thigh 55 Left ankle 26, calf 39, thigh 52 Length 76 Neurological: Normal cognition and motor skills. Vascular: Dorsalis Pedal Right: Weak - Left: Weak Diagnostic tests reviewed for today's visit: Most recent labs Most recent imaging PVRs- normal Venous Reflux RIGHT SIDE - DEEP VEINS Negative for acute deep vein thrombosis in vessels visualized. Positive for valvular incompetency in the common femoral vein. Negative for valvular incompetency in the femoral vein and popliteal vein. Multiple enlarged lymph nodes noted in the groin. The largest measures 1.8 x 1.1 x 1.2 cm. RIGHT SIDE - SUPERFICIAL VEINS Previous stripping of the great saphenous vein. Harvested for bypass from proximal thigh to proximal calf. Reflux noted in the great saphenous vein from proximal to mid calf. Positive for valvular incompetency in the anterior accessory great saphenous vein. Straight segment noted from junction to mid thigh measuring 24.2 cm. Positive for valvular incompetency in the small saphenous vein. LEFT SIDE - DEEP VEINS Spontaneous and respirophasic flow noted in the common femoral vein. IMPRESSION: Ms. Norman is a 64 year old female with secondary lymphedema, venous insufficiency, . PLAN and RECOMMENDATIONS: Reviewed duplex with patient She would bene (more content not included)... [facility] 04-16-2025 History of Present illness Narrative Images from the original note were not included. [facility] [place] DEPARTMENT OF VASCULAR SURGERY OUTPATIENT VISIT DATE April 16, 2025 OUTPATIENT VISIT TYPE ESTABLISHED SERVICE DATE: 04/16/2025 SERVICE TIME: 3:28 PM PRIMARY CARE PHYSICIAN: Marietta Johnson DO HISTORY OF PRESENT ILLNESS: Ms. Norman is a 64 year old female who presents today for a vascular surgery follow-up visit after reflux testing. She continues to have swelling bilaterally- worse on right. She was unable to tolerate compression for any period of time PAST MEDICAL HISTORY Diagnosis Date Acute myocardial [...] foot surgery STENT PLACEMENT 4 stents, unsucessful SOCIAL HISTORY Social History Tobacco Use Smoking status: Former Current packs/day: 0.00 Average packs/day: 1 pack/day for 20.0 years (20.0 ttl pk-yrs) Types: Cigarettes Start date: 08/27/1981 Quit date: 08/27/2001 Years since quittin.6 Smokeless tobacco: Never Tobacco comments: d/c 08/27/01 Vaping Use Vaping status: Never Used Substance Use Topics Alcohol use: Yes Comment: [facility] [facility] Drug use: No MEDICATIONS: amoxicillin (AMOXIL) 875 mg tablet 1 tablet Oral Twice a day for 90 days clobetasol (TEMOVATE) 0.05 % cream 1 Application. meloxicam (MOBIC) 15 mg tablet Take 15 mg by mouth once daily. pramipexole (MIRAPEX) 1.5 mg tablet Take 1.5 mg by mouth daily at bedtime. traZODone (DESYREL) 100 mg tablet Take 100 mg by mouth daily at bedtime. 2 tabs at bedtime vit B complex no.12/niacin,B3, (VITAMIN B COMPLEX [...] Take 81 mg by mouth once daily. ALLERGIES: ALLERGIES Allergen Reactions Adhesive Rash, Itching Plastic bandaids Iv Dye [Iodine] Anaphylaxis Neosporin [Neomycin* Rash, Itching Penicillins Other: See Comments convulsions PHYSICAL EXAM: BP 136/82 (BP Cuff Size: Regular Adult) Pulse (!) 57 SpO2 96% General: Alert and oriented Extremities: Edema bilaterally- right greater than left- See Get Images for photo Right leg wounds- superficial [id number], 1cmx0.5cm Left leg anterior hightower- superficial 4cmx0.5cm Leg measurements (cm) Right ankle 30, calf 44, thigh 55 Left ankle 26, calf 39, thigh 52 Length 76 Neurological: Normal cognition and motor skills. Vascular: Dorsalis Pedal Right: Weak - Left: Weak Diagnostic tests reviewed for today's visit: Most recent labs Most recent imaging PVRs- normal Venous Reflux RIGHT SIDE - DEEP VEINS Negative for acute deep vein thrombosis in vessels visualized. Positive for valvular incompetency in the common femoral vein. Negative for valvular incompetency in the femoral vein and popliteal vein. Multiple enlarged lymph nodes noted in the groin. The largest measures 1.8 x 1.1 x 1.2 cm. RIGHT SIDE - SUPERFICIAL VEINS Previous stripping of the great saphenous vein. Harvested for bypass from proximal thigh to proximal calf. Reflux noted in the great saphenous vein from proximal to mid calf. Positive for valvular incompetency in the anterior accessory great saphenous vein. Straight segment noted from junction to mid thigh measuring 24.2 cm. Positive for valvular incompetency in the small saphenous vein. LEFT SIDE - DEEP VEINS Spontaneous and respirophasic flow noted in the common femoral vein. IMPRESSION: Ms. Norman is a 64 year old female with secondary lymphedema, venous insufficiency, . PLAN and RECOMMENDATIONS: Reviewed duplex with patient She would benefit from [place] wraps as she has difficulty with her compression stockings, provided size E tubigrip- recommend doubling if able Continue to elevate Referral to lymphedema therapy and lymphedema surgery Follow up in 3 weeks SIGNATURE: Crissy Zavala DO PATIENT NAME: Gricelda Norman DATE: April 16, 2025 TIME: 3:28 PM Patient presents with: Follow Up: Testing results - PVR and US done on 04/11/25 AMB ROOMING INTAKE FLOWSHEET DATA Pain Pain Level: 8 Pain Location: Leg-Right Description: Throbbing, Aching Duration Amount of Time: 2 Duration Units: Months Frequency: Continuous Intervention/Comfort measure: Medication Patient states is taking Tylenol for the pain and helps. documented in this encounter [facility] 04-16-2025 Note HNO ID: [id number] Author: TRICE PASCUAL MA Service: ? Author Type: Steel Loader Type: Progress Notes Filed: 05/14/2025 08:58 Note Text: Patient presents with: Follow Up: Testing results - PVR and US done on 04/11/25 AMB ROOMING INTAKE FLOWSHEET DATA Pain Pain Level: 8 Pain Location: Leg-Right Description: Throbbing, Aching Duration Amount of Time: 2 Duration Units: Months Frequency: Continuous Intervention/Comfort measure: Medication Patient states is taking Tylenol for the pain and helps. [facility] 04-09-2025 Telephone encounter Note Spoke with Dr. Zavala via telephone regarding patients mychart message, she encouraged patient to continued compression if able. Elevate at rest, to get scheduled with Lymphedema therapy. Patients US appt moved to 04/11 and f/u with 04/16 in [place]. Patient informed of providers message and aware of appt changes She will call to scheduled appt with lymphedema therapy. [facility] 04-09-2025 Miscellaneous Notes Spoke with Dr. Zavala via telephone regarding patients mychart message, she encouraged patient to continued compression if able. Elevate at rest, to get scheduled with Lymphedema therapy. Patients US appt moved to 04/11 and f/u with 04/16 in [place]. Patient informed of providers message and aware of appt changes She will call to scheduled appt with lymphedema therapy. documented in this encounter [facility] 03-19-2025 Instructions Crissy Zavala DO - 03/19/2025 8:51 AM EDT Stocking Wear and Care Your doctor has recommended for you to wear compression stockings. The following instructions are to help you maintain your treatment plan and care for your stockings. You must be properly fitted before ordering your stockings. Ill-fitting stockings could be ineffective or cause injury. Put your stockings on first thing when you wake up, BEFORE you get out of bed. If you need to shower, it is recommended to lie back down after for 20-30 minutes with your feet elevated prior to putting on your stockings. Take your stockings off before bed. Do not sleep in them, unless instructed to do so after a procedure. To wash your stockings, wash with mild soap or detergent (do not use any bleach containing product), rinse well. Roll them in a towel to remove excess water and allow to air dry. There are also ferryboat operator helper recommendations included with your stockings. Skin care- Wash your legs and feet and dry them well each day, especially between your toes. Before bed, moisturize liberally with a fragrant free, creamy moisturizer (Lubriderm, Jodie, Eucerin, Reta) Never moisturize between toes. Avoid moisturizing immediately prior to putting on your stockings. You can use rubber gloves, such as Playtex or Sig[employer]is, when putting on your stockings. The grooves in the palm of the gloved will help you senior android developer the stocking while putting it on. Be sure to place the heel on first, prior to pulling up the stocking. Other devices to help with putting on stockings, like the easy glide, can be ordered online and from the location you order your stockings from. Knee- High stockings should end about an inch below the knee, if you pull them up too high, do not fold or roll them down. Place the top of the stockings in the correct place and snap out or pinch out any wrinkles. Over time, the stockings will lose their elasticity and therefore, their effectiveness. If one pair is worn daily, they should be replaced about every 4 months. If alternating between multiple pairs, they will last longer. Begin looking for replacements about a month prior to them needing replaced. This will help avoid a gap in therapeutic use. It is recommended to keep the original box so that re ordering will be easier. It is also recommended that a new fitting be completed to ensure you are wearing the most effective size. Locations: [facility] [phone] [employer] [phone] www.[employer]- [phone] www.[email or web address]- [phone] Located in [facility]- call local store and schedule a fitting. [facility]- ONLINE STORE Leg Measurements- (cm) Right leg (cm)- ankle 29, calf 41, thigh 54, Length knee to floor 54cm, hip to floor 80cm Left leg (cm)- ankle 23, calf 40, thigh 53 Amount of compression: Recommend 30-40 mmHg; 20-30 mmHg documented in this encounter [facility] 03-19-2025 Note HNO ID: [id number] Author: CRISSY ZAVALA DO Service: ? Author Type: Physician Type: Progress Notes Filed: 03/19/2025 09:10 Note Text: [facility] [place] DEPARTMENT OF VASCULAR SURGERY OUTPATIENT VISIT DATE March 19, 2025 OUTPATIENT VISIT TYPE CONSULTATION SERVICE DATE: 03/19/2025 SERVICE TIME: 7:59 AM PRIMARY CARE PHYSICIAN: Marietta Johnson DO REFERRING PROVIDER: Susan Buck [address] [facility] [id number] Consult requested for an opinion regarding the evaluation and treatment of the above. My final impression and recommendations will be communicated back to the requesting physician by way of the shared medical record or letter via [place] mail. CHIEF COMPLAINT: Patient presents with: New Patient History of Present Illness: Patient is a 64 year old White female presenting for consultation, evaluation and possible treatment of leg edema and peripheral arterial disease. She has extensive cardiac procedures and stenting. She reports right leg swelling. She noted that compression creates bulges in her legs and she is unable to tolerate them. She is a former smoker. Denies history of DVT. She reports a tingling burning sensation in her legs. She admits to restless legs. Venous Duplex of right leg in 02/2025- negative for DVT. They harvested right vein for bypass. States swelling started in right leg only recently. PAIN ASSESSMENT: PAIN EVALUATION 03/18/2025 5096 Pain Level: 7 Pain Location: Leg-Right Description: Aching;Bloating;Cramping;Pressure ;Sharp;Throbbing;Tightness Duration Units: Days Frequency: Continuous Obstetric History T1 L1 SAB0 IAB0 Ectopic0 Multiple0 Live Births0 Comment: menarche at age 17y; afb 18y; lmp currently on depo provera Name of Baby 1: Not recorded Date: Not recorded GA: Not recorded Type: Not recorded Apgar1: Not recorded Apgar5: Not recorded Living: Not recorded Duration of Symptoms: Progressive PAST MEDICAL HISTORY Diagnosis Date Acute myocardial [...] foot surgery STENT PLACEMENT 4 stents, unsucessful SOCIAL HISTORY: Social History Tobacco Use Smoking status: Former Current packs/day: 0.00 Average packs/day: 1 pack/day for 20.0 years (20.0 ttl pk-yrs) Types: Cigarettes Start date: 08/27/1981 Quit date: 08/27/2001 Years since quittin.5 Smokeless tobacco: Never Tobacco comments: d/c 08/27/01 Vaping Use Vaping status: Never Used Substance Use Topics Alcohol use: Yes Comment: occ wine Drug use: No FAMILY HISTORY Problem Relation Age of Onset Hypertension Mother Heart Mother Heart Attack Mother S/p PCI/CABG Hyperlipidemia Mother Heart Failure Mother Hypertension Father Heart Father PPM Stroke Sister Heart Attack Brother Heart Attack Maternal Grandmother Diabetes Paternal Grandmother None Other no family h/o breast cancer Heart Maternal Uncle CABG MEDICATIONS: amoxicillin (AMOXIL) 875 mg tablet 1 tablet Oral Twice a day for 90 days clobetasol (TEMOVATE) 0.05 % cream 1 Application. meloxicam (MOBIC) 15 mg tablet Take 15 mg by mouth once daily. pramipexole (MIRAPEX) 1.5 mg tablet Take 1.5 mg by mouth daily at bedtime. traZODone (DESYREL) 100 mg tablet Take 100 mg by mouth daily at bedtime. 2 tabs at bedtime vit B complex no.12/niacin,B3, (VITAMIN B COMPLEX [...] Take 81 mg by mouth once daily. ALLERGIES: ALLERGIES Allergen Reactions Adhesive Rash, Itching Plastic bandaids Iv Dye [Iodine] Anaphylaxis Neosporin [Neomycin* Rash, Itching Penicillins Other (more content not included)... [facility] 03-19-2025 History of Present illness Narrative Images from the original note were not included. [facility] [place] DEPARTMENT OF VASCULAR SURGERY OUTPATIENT VISIT DATE March 19, 2025 OUTPATIENT VISIT TYPE CONSULTATION SERVICE DATE: 03/19/2025 SERVICE TIME: 7:59 AM PRIMARY CARE PHYSICIAN: Marietta Johnson DO REFERRING PROVIDER: Susan Buck [facility] [facility] [id number] Consult requested for an opinion regarding the evaluation and treatment of the above. My final impression and recommendations will be communicated back to the requesting physician by way of the shared medical record or letter via US mail. CHIEF COMPLAINT: Patient presents with: New Patient History of Present Illness: Patient is a 64 year old White female presenting for consultation, evaluation and possible treatment of leg edema and peripheral arterial disease. She has extensive cardiac procedures and stenting. She reports right leg swelling. She noted that compression creates bulges in her legs and she is unable to tolerate them. She is a former smoker. Denies history of DVT. She reports a tingling burning sensation in her legs. She admits to restless legs. Venous Duplex of right leg in 02/2025- negative for DVT. They harvested right vein for bypass. States swelling started in right leg only recently. PAIN ASSESSMENT: PAIN EVALUATION 03/18/2025 1806 Pain Level: 7 Pain Location: Leg-Right Description: Aching;Bloating;Cramping;Pressure ;Sharp;Throbbing;Tightness Duration Units: Days Frequency: Continuous Obstetric History T1 L1 SAB0 IAB0 Ectopic0 Multiple0 Live Births0 Comment: menarche at age 17y; afb 18y; lmp currently on depo provera Name of Baby 1: Not recorded Date: Not recorded GA: Not recorded Type: Not recorded Apgar1: Not recorded Apgar5: Not recorded Living: Not recorded Duration of Symptoms: Progressive PAST MEDICAL HISTORY Diagnosis Date Acute myocardial [...] foot surgery STENT PLACEMENT 4 stents, unsucessful SOCIAL HISTORY: Social History Tobacco Use Smoking status: Former Current packs/day: 0.00 Average packs/day: 1 pack/day for 20.0 years (20.0 ttl pk-yrs) Types: Cigarettes Start date: 08/27/1981 Quit date: 08/27/2001 Years since quittin.5 Smokeless tobacco: Never Tobacco comments: d/c 08/27/01 Vaping Use Vaping status: Never Used Substance Use Topics Alcohol use: Yes Comment: occ wine Drug use: No FAMILY HISTORY Problem Relation Age of Onset Hypertension Mother Heart Mother Heart Attack Mother S/p PCI/CABG Hyperlipidemia Mother Heart Failure Mother Hypertension Father Heart Father PPM Stroke Sister Heart Attack Brother Heart Attack Maternal Grandmother Diabetes Paternal Grandmother None Other no family h/o breast cancer Heart Maternal Uncle CABG MEDICATIONS: amoxicillin (AMOXIL) 875 mg tablet 1 tablet Oral Twice a day for 90 days clobetasol (TEMOVATE) 0.05 % cream 1 Application. meloxicam (MOBIC) 15 mg tablet Take 15 mg by mouth once daily. pramipexole (MIRAPEX) 1.5 mg tablet Take 1.5 mg by mouth daily at bedtime. traZODone (DESYREL) 100 mg tablet Take 100 mg by mouth daily at bedtime. 2 tabs at bedtime vit B complex no.12/niacin,B3, (VITAMIN B COMPLEX [...] Take 81 mg by mouth once daily. ALLERGIES: ALLERGIES Allergen Reactions Adhesive Rash, Itching Plastic bandaids Iv Dye [Iodine] Anaphylaxis Neosporin [Neomycin* Rash, Itching Penicillins Other: See Comments convulsions REVIEW of SYSTEMS: Constitutional: No weight loss, malaise or fevers. HEENT: Negative for frequent or significant headaches, No changes in hearing or vision, no nose bleeds or other nasal problems Respiratory: Negative for cough, wheezing, or shortness of breath Cardiovascular: Negative for chest pain and palpitations and Positive for leg swelling Gatrointestinal: Negative for abdominal discomfort, blood in stools or black stools or change in bowel habits Genitourinary: No history of dysuria, frequency, or incontinence Musculoskeletal: Positive for back pain and joint pain Endocrine: Negative for cold or heat intolerance, polyuria, polydipsia and goiter Hematology/Lymphatic: Positive for bruises easily Neurologic: No history or headaches, syncope, paralysis, seizures or tremors Integumentary: Negative for lesions, rash, and itching. PHYSICAL EXAM: VITALS: There were no vitals taken for this visit. General: Alert, oriented, cooperative, healthy appearance Integumentary: Normal color, no rash, no lesions. HEENT: EOM, pupils equal, round and reactive. Cardiovascular: Pulse regular. Lungs: No chest deformities or chest wall tenderness. Abdomen: Not examined Extremities: Edema right Neurological: AAOx3. Normal cognition and motor skills. Vascular: Dorsalis Pedal Right: Weak - Left: Normal Leg Measurements- (cm) Right leg (cm)- ankle 29, calf 41, thigh 54, Length knee to floor 54cm, hip to floor 80cm Left leg (cm)- ankle 23, calf 40, thigh 53 Diagnostic tests reviewed for today's visit: Most recent labs Most recent imaging IMPRESSION: Ms. Norman is a 64 year old female with venous insufficiency, secondary lymphedema . PLAN and RECOMMENDATIONS: Discussed venous and lymphatic pathology with patient Recommend use of compression stockings, elevation and exercise Will get venous reflux testing, PVRs and follow up to discuss results Prescription provided for compression stockings 20-30 mmHg and instructed on use Referral to lymphedema therapy for decompression She may benefit from referral to lymphedema surgery and lymphatic compression pumps Follow up after testing in 8 weeks SIGNATURE: rCissy Zavala DO PATIENT NAME: Gricelda Norman DATE: March 19, 2025 TIME: 7:59 AM documented in this encounter [facility] 02-25-2025 Telephone encounter Note 02/20/25 echo and venous dopplers scanned into [employer] for your review. Juhi Bey RN [facility] 02-25-2025 Miscellaneous Notes 02/20/25 echo and venous dopplers scanned into [employer] for your review. Juhi Bey RN documented in this encounter [facility] 02-13-2025 History of Present illness Narrative Patient was ambulatory prior to this incident and is expected to regain ambulatory status after complete healing of injury. Addendum 02/13/25 per CLYDE Tena DPM Images from the original note were not included. Established Patient Visit CLYDE Tena DPM Patient Name: Gricelda Norman. . Date of : 1960, 64 y.o.. Gender: female. Subjective: Patient is a pleasant 64-year-old female who presents to clinic today for complaints of acute on chronic right foot and ankle pain. Patient was seen by my partner and received an injection to the right foot approximately 7 weeks ago. Patient really did not have much benefit from this. Patient has substantial medical history and a considerable amount of time was spent on this today with her explaining her CAD and history of multiple heart attacks. Patient also has history of significant peripheral edema with significant outflow disease who has been seen by a number of vascular surgeons. Patient does not respond well to any form of compressive therapy patient would like to be reevaluated today. Patient denies any current fever, chills, nausea, vomiting, chest pain calf pain or shortness of breath. Patient has no other pedal complaints at this time. Physical Examination: BP 121/76 (BP Location: Left arm, Patient Position: Sitting, BP Cuff Size: Adult) Pulse 76 Temp 97 F (36.1 C) (Temporal) Resp 16 Ht 5' 3.25 Wt 85.3 kg (188 lb) SpO2 98% BMI 33.04 kg/m General Appearance: Alert, cooperative, no distress, appears stated age. Podiatric Exam Vascular: DP and PT pulses lightly palpable. CFT is brisk to expose digits. Absent hair growth feet. Skin temperature is warm to cool from proximal tibial tuberosity distal digits. Bilateral pitting edema with right worse than left essentially to the entirety extremity. Neurological: Epicritic and protopathic sensation intact to bilateral lower extremities. Dermatologic: Skin is largely atrophic with mild hyperpigmentation circumferentially likely secondary to chronic venous hypertension. Musculoskeletal: Bilateral foot and ankle overall rectus alignment. Muscle strength testing 5 out of 5 to all tested muscular's. Ankle joint range of motion limited with knee extended to slight increase in knee flex. Decree subtalar joint midtarsal range of motion. Patient has pain globally around the ankle subtalar joint ATFL AITFL anterior ankle anterior medial ankle PT tendon. Mild pain to the peroneal tendon. Less pain to the distal foot and tarsometatarsal joints. Fairly significant pain to the dorsal TN joint. Diagnoses: 1. Arthritis of right foot 2. Chronic pain of right ankle 3. Arthritis of right ankle 4. Right foot pain Imagin views of the right foot and 2 views of the ankle reviewed today AP MO and lateral the foot and AP ankle mortise of the ankle. No acute fracture or dislocation of note. Persistent visualization of significant arthritis noted through the midfoot and rear foot. Subtle subluxation of the ankle joint distally. Subchondral sclerosis noted through the midtarsal joints and TN joint. Ankle joint is overall fairly concentric mild subchondral sclerosis but largely maintenance of joint height mild narrowing laterally greater than medially. Assessment/Plan: Patient was seen and evaluated. Discussed all clinical and radiographic findings Educated patient on etiology and pathophysiology associated various of maladies for Discussed very treatment options with patient. Unfortunately for her her options are fairly limited secondary to her lack of ability to compress as well as her inability to utilize NSAIDs and oral steroids. Patient had a injection approximately 7 weeks ago and most of her pain is over her TN and in her ankle joint. Patient elected to move forward with a TN and ankle joint injection. Patient was consented and a one-to-one receiving mixture of 0.5% Marcaine plain and dexamethasone was injected 50-50 into the TN and ankle joint through 2 separate injection sites. Discussed possibility of utilizing an ASO lace up ankle brace. Dispensed handout for post injection information. Did discuss possibility of a steroidal flare. Patient to follow-up in 6 to 8 weeks with myself or Dr. Hernandez. Patient understands if she can only have 3 injections [address] in a year. This note was partially created using voice recognition software and is inherently subject to errors including those of syntax and sound-alike substitutions which may escape proofreading. In such instances, original meaning may be extrapolated by contextual derivation. CLYDE Tena DPM Podiatric Foot & Ankle Surgery documented in this encounter [facility] 01-29-2025 History of Present illness Narrative PRIMARY CARE PHYSICIAN: Liliya Lara [address] [id number] Chief Complaint Patient presents with: CARD Follow Up 6 Month: CAD HISTORY OF PRESENT ILLNESS: Ms. Norman is a 63 year old female who is known to Dr. Espino last seeing him in the office in October 2022, she also follows with Dr. Woo at [facility] patient has a history of coronary artery disease status post coronary bypass graft surgery, hyperlipidemia, hypertension, chronic diastolic heart failure, bradycardia In December she began having bilateral lower extremity edema, she saw her pcp, she had labs which she shared on her phone with me BNP CBC, BMP normal. Patient denies any anginal complaints, she states she has missed a few doses of her oral Bumex therapy. 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, she is also states she could not tolerate compression socks or compression wraps PAST MEDICAL HISTORY Diagnosis Date Acute myocardial [...] Social History Tobacco Use Smoking status: Former Current packs/day: 0.00 Average packs/day: 1 pack/day for 20.0 years (20.0 ttl pk-yrs) Types: Cigarettes Start date: 08/27/1981 Quit date: 08/27/2001 Years since quittin.4 Smokeless tobacco: Never Tobacco comments: d/c 08/27/01 Vaping Use Vaping status: Never Used Substance Use Topics Alcohol use: Yes Comment: [facility] wine Drug use: No ALLERGIES Allergen Reactions Adhesive Rash, Itching Plastic bandaids Iv Dye [Iodine] Anaphylaxis Neosporin [Neomycin* Rash, Itching Penicillins Other: See Comments convulsions Medications: Current Outpatient Medications Medication Sig Dispense Refill amoxicillin (AMOXIL) 875 mg tablet 1 tablet Oral Twice a day for 90 days clobetasol (TEMOVATE) 0.05 % cream 1 Application. meloxicam (MOBIC) 15 mg tablet Take 15 mg by mouth once daily. pramipexole (MIRAPEX) 1.5 mg tablet Take 1.5 mg by mouth daily at bedtime. traZODone (DESYREL) 100 mg tablet Take 100 mg by mouth daily at bedtime. 2 tabs at bedtime vit B complex no.12/niacin,B3, (VITAMIN B COMPLEX [...] Take 81 mg by mouth once daily. No current facility-administered medications for this visit. Review of Systems Constitutional: Negative for malaise/fatigue. HENT: Negative for congestion. Eyes: Negative for blurred vision. Respiratory: Negative for shortness of breath. Cardiovascular: Positive for leg swelling. Negative for chest pain, palpitations and orthopnea. Gastrointestinal: Negative for blood in stool and nausea. Musculoskeletal: Negative for back pain, falls and joint pain. Neurological: Negative for dizziness, tingling, speech change, loss of consciousness and weakness. Endo/Heme/Allergies: Does not bruise/bleed easily. Psychiatric/Behavioral: The patient does not have insomnia. Physical Examination: Vitals:BP 132/76 Pulse 62 Resp 18 Ht 5' 2.5 (1.59m) Wt 185 lb 8 oz (84.1kg) SpO2 99[room air]% BMI 33.37 kg/(m^2). Last 2 Encounter Wt Readings: Date: [...] There is no abdominal tenderness. Musculoskeletal: General: Swelling (right > than left) present. Normal range of motion. Cervical back: Normal [...] on 02/04/2012 ([place]). Similar resting findings. 02/05/21: [facility]: Summary 1. Mildly enlarged left ventricular chamber. [...] focal disease. _ The mid circumflex - GOLF COURSE ASSISTANT and ISR. Additional Comment: - the LCx [...] the proximal OM1 with known occluded SVG-OM1; GOLF COURSE ASSISTANT of the mid LCx stent and patent ROSAS-OM2; SVG-OM3 graft is known to be occluded - RCA with mild luminal irregularities Recommended Treatment: Medical Therapy. 01/29/22: Patient Name: Gricelda Norman : 1960 Ordering Provider: [facility] [...] the proximal OM1 with known occluded SVG-OM1; GOLF COURSE ASSISTANT of the mid LCx stent and patent ROSAS-OM2; SVG-OM3 graft is known to be occluded - RCA with mild luminal irregularities Continue lisinopril 2.5 mg daily Imdur 30 mg daily Atorvastatin 80 mg daily Aspirin 81 mg daily Not on beta-blockade secondary to baseline bradycardia asymptomatic 2. Chronic heart failure with preserved ejection fraction (HCC) - ICD9: 428.9, ICD10: I50.32 Continue Bumex 2 mg daily 2 g sodium 64 ounce fluid restriction Recent BNP/BMP December 2024 by PCP normal Avoid NSAIDs Encourage compression socks/wraps patient states she cannot tolerate Obtain echo for evaluation of LV function 3.lower extremity edema Right greater than left, right greater than left, Given extensive CAD history may need PAD evaluation Obtain ultrasound to rule out DVT 4. Bradycardia Patient's EKG today demonstrates bradycardia, [...] On atorvastatin therapy Healthy diet structured exercise Susan Buck APRN.CNP Follow up planning: Call for questions or concerns. Return in 3 months Electronically signed by Susan Buck APRN.CNP The above note was partially created using a dictation recognition software. A reasonable attempt has been made to correct any errors. I spent >20 minutes in the visit, which included a review of the patients pertinent past medical history, history of present health status, review of systems, assessment & planning, counseling, and further coordination of care. Patient c/o swelling in BLE. Swelling in RLE greater than left. documented in this encounter [facility] 01-29-2025 Note HNO ID: [id number] Author: SUSAN BUCK APRN.TREASURY CONSULTANT Service: ? Author Type: Nurse Practitioner Type: Progress Notes Filed: 01/29/2025 11:17 Note Text: PRIMARY CARE PHYSICIAN: Liliya Lara [address] [place] [address] Chief Complaint Patient presents with: CARD Follow Up 6 Month: CAD HISTORY OF PRESENT ILLNESS: Ms. Norman is a 63 year old female who is known to Dr. Espino last seeing him in the office in October 2022, she also follows with Dr. Woo at [facility] patient has a history of coronary artery disease status post coronary bypass graft surgery, hyperlipidemia, hypertension, chronic diastolic heart failure, bradycardia In December she began having bilateral lower extremity edema, she saw her pcp, she had labs which she shared on her phone with me BNP CBC, BMP normal. Patient denies any anginal complaints, she states she has missed a few doses of her oral Bumex therapy. 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, she is also states she could not tolerate compression socks or compression wraps PAST MEDICAL HISTORY Diagnosis Date Acute myocardial [...] Social History Tobacco Use Smoking status: Former Current packs/day: 0.00 Average packs/day: 1 pack/day for 20.0 years (20.0 ttl pk-yrs) Types: Cigarettes Start date: 08/27/1981 Quit date: 08/27/2001 Years since quittin.4 Smokeless tobacco: Never Tobacco comments: d/c 08/27/01 Vaping Use Vaping status: Never Used Substance Use Topics Alcohol use: Yes Comment: occ wine Drug use: No ALLERGIES Allergen Reactions Adhesive Rash, Itching Plastic bandaids Iv Dye [Iodine] Anaphylaxis Neosporin [Neomycin* Rash, Itching Penicillins Other: See Comments convulsions Medications: Current Outpatient Medications Medication Sig Dispense Refill amoxicillin (AMOXIL) 875 mg tablet 1 tablet Oral Twice a day for 90 days clobetasol (TEMOVATE) 0.05 % cream 1 Application. meloxicam (MOBIC) 15 mg tablet Take 15 mg by mouth once daily. pramipexole (MIRAPEX) 1.5 mg tablet Take 1.5 mg by mouth daily at bedtime. traZODone (DESYREL) 100 mg tablet Take 100 mg by mouth daily at bedtime. 2 tabs at bedtime vit B complex no.12/niacin,B3, (VITAMIN B COMPLEX [...] Take 81 mg by mouth once daily. No current facility-administered medications for this visit. Review of Systems Constitutional: Negative for malaise/fatigue. HENT: Negative for congestion. Eyes: Negative for blurred vision. Respiratory: Negative for shortness of breath. Cardiovascular: Positive for leg swelling. Negative for chest pain, palpitations and orthopnea. Gastrointestinal: Negative for blood in stool and nausea. Musculoskeletal: Negative for back pain, falls and joint pain. Neurological: Negative for dizziness, tingling, speech change, loss of consciousness and weakness. Endo/Heme/Allergies: Does not bruise/bleed easily. Psychiatric/Behavioral: The patient does not have insomnia. Physical Examination: Vitals:BP 132/76 Pulse (more content not included)... [facility] 01-29-2025 Instructions Susan Buck APRN.KATARINA - 01/29/2025 10:48 AM EDT Obtain US of your leg Obtain ECHO of your heart Avoid anti-inflammatory medications.. When you get testing done in [place] or [place], If I dont call you in 3 days after you have the test don , Call the office so I can find the results. documented in this encounter [facility] 01-29-2025 Note HNO ID: [id number] Author: NELLY ALCAZAR LPN Service: ? Author Type: LICENSED NURSE Type: Progress Notes Filed: 01/29/2025 11:17 Note Text: Patient c/o swelling in BLE. Swelling in RLE greater than left. [facility] 01-22-2025 Note Established Patient Visit CLYDE Tena DPM Patient Name: Gricelda Norman. . Date of : 1960, 64 y.o.. Gender: female. Subjective: Patient is a pleasant 64-year-old female who presents to clinic today for complaints of acute on chronic right foot and ankle pain. Patient was seen by my partner and received an injection to the right foot approximately 7 weeks ago. Patient really did not have much benefit from this. Patient has substantial medical history and a considerable amount of time was spent on this today with her explaining her CAD and history of multiple heart attacks. Patient also has history of significant peripheral edema with significant outflow disease who has been seen by a number of vascular surgeons. Patient does not respond well to any form of compressive therapy patient would like to be reevaluated today. Patient denies any current fever, chills, nausea, vomiting, chest pain calf pain or shortness of breath. Patient has no other pedal complaints at this time. Physical Examination: BP 121/76 (BP Location: Left arm, Patient Position: Sitting, BP Cuff Size: Adult) Pulse 76 Temp 97 degrees F (36.1 degrees C) (Temporal) Resp 16 Ht 5' 3.25 Wt 85.3 kg (188 lb) SpO2 98% BMI 33.04 kg/m General Appearance: Alert, cooperative, no distress, appears stated age. Podiatric Exam Vascular: DP and PT pulses lightly palpable. CFT is brisk to expose digits. Absent hair growth feet. Skin temperature is warm to cool from proximal tibial tuberosity distal digits. Bilateral pitting edema with right worse than left essentially to the entirety extremity. Neurological: Epicritic and protopathic sensation intact to bilateral lower extremities. Dermatologic: Skin is largely atrophic with mild hyperpigmentation circumferentially likely secondary to chronic venous hypertension. Musculoskeletal: Bilateral foot and ankle overall rectus alignment. Muscle strength testing 5 out of 5 to all tested muscular's. Ankle joint range of motion limited with knee extended to slight increase in knee flex. Decree subtalar joint midtarsal range of motion. Patient has pain globally around the ankle subtalar joint ATFL AITFL anterior ankle anterior medial ankle PT tendon. Mild pain to the peroneal tendon. Less pain to the distal foot and tarsometatarsal joints. Fairly significant pain to the dorsal TN joint. Diagnoses: 1. Arthritis of right foot 2. Chronic pain of right ankle 3. Arthritis of right ankle 4. Right foot pain Imagin views of the right foot and 2 views of the ankle reviewed today AP MO and lateral the foot and AP ankle mortise of the ankle. No acute fracture or dislocation of note. Persistent visualization of significant arthritis noted through the midfoot and rear foot. Subtle subluxation of the ankle joint distally. Subchondral sclerosis noted through the midtarsal joints and TN joint. Ankle joint is overall fairly concentric mild subchondral sclerosis but largely maintenance of joint height mild narrowing laterally greater than medially. Assessment/Plan: Patient was seen and evaluated. Discussed all clinical and radiographic findings Educated patient on etiology and pathophysiology associated various of maladies for Discussed very treatment options with patient. Unfortunately for her her options are fairly limited secondary to her lack of ability to compress as well as her inability to utilize NSAIDs and oral steroids. Patient had a injection approximately 7 weeks ago and most of her pain is over her TN and in her ankle joint. Patient elected to move forward with a TN and ankle joint injection. Patient was consented and a one-to-one receiving mixture of 0.5% Marcaine plain and dexamethasone was injected 50-50 into the TN and ankle joint through 2 separate injection sites. Discussed possibility of utilizing an ASO lace up ankle brace. Dispensed handout for post injection information. Did discuss possibility of a steroidal flare. Patient to follow-up in 6 to 8 weeks with myself or Dr. Hernandez. Patient understands if she can only have 3 injections [address] in a year. This note was partially created using voice recognition software and is inherently subject to errors including those of syntax and sound-alike substitutions which may escape proofreading. In such instances, original meaning may be extrapolated by contextual derivation. CLYDE Tena DPM Podiatric Foot & Ankle Surgery AUTHENTICATED BY [employer], ON 01/23/2025 13:16:57 [facility] 01-22-2025 History of Present illness Narrative Images from the original note were not included. Established Patient Visit CLYDE Tena DPM Patient Name: Gricelda Norman. . Date of : 1960, 64 y.o.. Gender: female. Subjective: Patient is a pleasant 64-year-old female who presents to clinic today for complaints of acute on chronic right foot and ankle pain. Patient was seen by my partner and received an injection to the right foot approximately 7 weeks ago. Patient really did not have much benefit from this. Patient has substantial medical history and a considerable amount of time was spent on this today with her explaining her CAD and history of multiple heart attacks. Patient also has history of significant peripheral edema with significant outflow disease who has been seen by a number of vascular surgeons. Patient does not respond well to any form of compressive therapy patient would like to be reevaluated today. Patient denies any current fever, chills, nausea, vomiting, chest pain calf pain or shortness of breath. Patient has no other pedal complaints at this time. Physical Examination: BP 121/76 (BP Location: Left arm, Patient Position: Sitting, BP Cuff Size: Adult) Pulse 76 Temp 97 F (36.1 C) (Temporal) Resp 16 Ht 5' 3.25 Wt 85.3 kg (188 lb) SpO2 98% BMI 33.04 kg/m General Appearance: Alert, cooperative, no distress, appears stated age. Podiatric Exam Vascular: DP and PT pulses lightly palpable. CFT is brisk to expose digits. Absent hair growth feet. Skin temperature is warm to cool from proximal tibial tuberosity distal digits. Bilateral pitting edema with right worse than left essentially to the entirety extremity. Neurological: Epicritic and protopathic sensation intact to bilateral lower extremities. Dermatologic: Skin is largely atrophic with mild hyperpigmentation circumferentially likely secondary to chronic venous hypertension. Musculoskeletal: Bilateral foot and ankle overall rectus alignment. Muscle strength testing 5 out of 5 to all tested muscular's. Ankle joint range of motion limited with knee extended to slight increase in knee flex. Decree subtalar joint midtarsal range of motion. Patient has pain globally around the ankle subtalar joint ATFL AITFL anterior ankle anterior medial ankle PT tendon. Mild pain to the peroneal tendon. Less pain to the distal foot and tarsometatarsal joints. Fairly significant pain to the dorsal TN joint. Diagnoses: 1. Arthritis of right foot 2. Chronic pain of right ankle 3. Arthritis of right ankle 4. Right foot pain Imagin views of the right foot and 2 views of the ankle reviewed today AP MO and lateral the foot and AP ankle mortise of the ankle. No acute fracture or dislocation of note. Persistent visualization of significant arthritis noted through the midfoot and rear foot. Subtle subluxation of the ankle joint distally. Subchondral sclerosis noted through the midtarsal joints and TN joint. Ankle joint is overall fairly concentric mild subchondral sclerosis but largely maintenance of joint height mild narrowing laterally greater than medially. Assessment/Plan: Patient was seen and evaluated. Discussed all clinical and radiographic findings Educated patient on etiology and pathophysiology associated various of maladies for Discussed very treatment options with patient. Unfortunately for her her options are fairly limited secondary to her lack of ability to compress as well as her inability to utilize NSAIDs and oral steroids. Patient had a injection approximately 7 weeks ago and most of her pain is over her TN and in her ankle joint. Patient elected to move forward with a TN and ankle joint injection. Patient was consented and a one-to-one receiving mixture of 0.5% Marcaine plain and dexamethasone was injected 50-50 into the TN and ankle joint through 2 separate injection sites. Discussed possibility of utilizing an ASO lace up ankle brace. Dispensed handout for post injection information. Did discuss possibility of a steroidal flare. Patient to follow-up in 6 to 8 weeks with myself or Dr. Hernandez. Patient understands if she can only have 3 injections in [address] 1 [address] in a year. This note was partially created using voice recognition software and is inherently subject to errors including those of syntax and sound-alike substitutions which may escape proofreading. In such instances, original meaning may be extrapolated by contextual derivation. CLYDE Tena DPM Podiatric Foot & Ankle Surgery documented in this encounter [facility] 01-13-2025 Note Established Patient Visit Tatiana Hernandez DPM Patient Name: Gricelda Norman. . Date of : 1960, 64 y.o.. Gender: female. Subjective: Patient is a pleasant 64-year-old female who presents to clinic complaining of right foot ankle pain. Patient was seen previously for right foot arthritis and injection was given at the last clinic visit. Patient states that the injection that has helped significantly and she has had no pain. Admits that she has since been very active on her feet and a few days ago, she began experiencing right ankle arthritis pain. Denies any trauma or injury.No other pedal complaint at this time. Denies fevers, chills, nausea, vomiting, chest pain, shortness of breath, or any other constitutional symptoms. 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 Podiatric Exam Vascular: DP and PT pulses are faintly palpable 1/4. Capillary refill time is less than 3 seconds to distal digits. Skin temperature is warm to warm from proximal tibial tuberosity to distal digit. Localized pitting edema noted to the dorsal and lateral aspect of the right foot, resolved Neurological: Gross sensation is intact. Protective sensation is intact. Dermatologic: No open wounds or ulceration. Palpable fifth metatarsal base prominence plantarly and laterally. Interdigital spaces are clean dry and intact. Musculoskeletal: Pain on palpation to the palpable fifth metatarsal base prominence plantarly and laterally, resolved. Pain to the dorsal tarsometatarsal and midfoot joints, resolved. Pain significantly at the fourth and fifth tarsometatarsal joints, resolved. Mild tenderness in the patient to the anterior lateral ankle. Negative anterior drawer. Negative talar tilt. Patient is able to wiggle digits. Ankle joint range of motion is intact. Muscle strength is 5/5 to dorsiflexors, plantar flexors, inverters and everters. Compartments soft and compressible. No calf pain Diagnoses: 1. Arthritis of right ankle 2. Chronic pain of right ankle Imaging: Right foot 3 views weightbearing radiographs were ordered on 12/12/2024 and I personally interpreted them as follows: No acute fractures or dislocations noted. Intact plate and screw fixation noted across the first metatarsophalangeal joint arthrodesis site. No signs of lucency or failure. Joint space narrowing noted across the tarsometatarsal joints Absence of joint space noted across the talonavicular joint with subchondral sclerosis and dorsal hyperostosis noted. Degenerative arthritic changes noted across the lateral aspect of the subtalar and ankle joints Assessment/Plan: Patient was seen and evaluated. Discussed all clinical findings I previously ordered, interpreted, and discussed right foot radiographic findings with patient as noted above. Patient has painful arthritic pain noted across the tarsometatarsal joints especially the fourth and fifth tarsometatarsal joints, resolved after the steroid injection. At this time, patient's pain is noted to the right lateral ankle likely secondary to overactivity. Therefore, I discussed the importance of offloading, wearing good supportive hightop shoes, anti-inflammatories, etc. Patient is not a candidate for secondary steroid injection at this time. All questions were answered to patient satisfaction. Patient understands to call with any questions or concerns. Patient has elected to follow-up as needed. This note was partially created using voice recognition software and is inherently subject to errors including those of syntax and sound-alike s (more content not included)... [facility] 01-13-2025 History of Present illness Narrative Images from the original note were not included. Established Patient Visit Tatiana Hernandez DPM Patient Name: Gricelda Norman. . Date of : 1960, 64 y.o.. Gender: female. Subjective: Patient is a pleasant 64-year-old female who presents to clinic complaining of right foot ankle pain. Patient was seen previously for right foot arthritis and injection was given at the last clinic visit. Patient states that the injection that has helped significantly and she has had no pain. Admits that she has since been very active on her feet and a few days ago, she began experiencing right ankle arthritis pain. Denies any trauma or injury.No other pedal complaint at this time. Denies fevers, chills, nausea, vomiting, chest pain, shortness of breath, or any other constitutional symptoms. 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 ([facility]) 10/05/2015 Bipolar disorder, most recent episode depressed ([facility]) 12/25/2020 Callus of foot interdigital on right foot CHF (congestive heart failure) ([facility]) Chronic prescription opiate use Circulation problem Controlled substance agreement signed Depression GERD (gastroesophageal reflux disease) Hair loss Heart disease Hyperlipidemia Hypertension Left hip pain 07/26/2022 Migraine 12/25/2020 Myocardial infarct (HCC) PT STATES SHE HAS HAD 10 HEART ATTACKS FROM 2000 TO 2004 Painful orthopaedic hardware ([facility]) Left first MPJ Weight loss Past Surgical History: Procedure Laterality Date ANGIOPLASTY X 4 APPENDECTOMY N/A BUNIONECTOMY N/A CABG N/A CORONARY ARTERY BYPASS GRAFT EYE SURGERY HERNIA REPAIR N/A JOINT REPLACEMENT knee replacement Right 20+ years ago OPEN HEART I & D ([facility]) 2003 OTHER SURGICAL HISTORY 2003 PER PT QUADRUPLE BYPASS TOTAL HIP ARTHROPLASTY Right 2017 TOTAL KNEE ARTHROPLASTY Left 2019 Physical Examination: BP 139/77 (BP Location: Left arm, Patient Position: Sitting, BP Cuff Size: Adult) Pulse (!) 53 Temp (!) 96.6 F (35.9 C) (Infrared) General Appearance: Alert, cooperative, no distress, appears stated age. Podiatric Exam Vascular: DP and PT pulses are faintly palpable 1/4. Capillary refill time is less than 3 seconds to distal digits. Skin temperature is warm to warm from proximal tibial tuberosity to distal digit. Localized pitting edema noted to the dorsal and lateral aspect of the right foot, resolved Neurological: Gross sensation is intact. Protective sensation is intact. Dermatologic: No open wounds or ulceration. Palpable fifth metatarsal base prominence plantarly and laterally. Interdigital spaces are clean dry and intact. Musculoskeletal: Pain on palpation to the palpable fifth metatarsal base prominence plantarly and laterally, resolved. Pain to the dorsal tarsometatarsal and midfoot joints, resolved. Pain significantly at the fourth and fifth tarsometatarsal joints, resolved. Mild tenderness in the patient to the anterior lateral ankle. Negative anterior drawer. Negative talar tilt. Patient is able to wiggle digits. Ankle joint range of motion is intact. Muscle strength is 5/5 to dorsiflexors, plantar flexors, inverters and everters. Compartments soft and compressible. No calf pain Diagnoses: 1. Arthritis of right ankle 2. Chronic pain of right ankle Imaging: Right foot 3 views weightbearing radiographs were ordered on 12/12/2024 and I personally interpreted them as follows: No acute fractures or dislocations noted. Intact plate and screw fixation noted across the first metatarsophalangeal joint arthrodesis site. No signs of lucency or failure. Joint space narrowing noted across the tarsometatarsal joints Absence of joint space noted across the talonavicular joint with subchondral sclerosis and dorsal hyperostosis noted. Degenerative arthritic changes noted across the lateral aspect of the subtalar and ankle joints Assessment/Plan: Patient was seen and evaluated. Discussed all clinical findings I previously ordered, interpreted, and discussed right foot radiographic findings with patient as noted above. Patient has painful arthritic pain noted across the tarsometatarsal joints especially the fourth and fifth tarsometatarsal joints, resolved after the steroid injection. At this time, patient's pain is noted to the right lateral ankle likely secondary to overactivity. Therefore, I discussed the importance of offloading, wearing good supportive hightop shoes, anti-inflammatories, etc. Patient is not a candidate for secondary steroid injection at this time. All questions were answered to patient satisfaction. Patient understands to call with any questions or concerns. Patient has elected to follow-up as needed. This note was partially created using voice recognition software and is inherently subject to errors including those of syntax and sound-alike substitutions which may escape proofreading. In such instances, original meaning may be extrapolated by contextual derivation. Tatiana Hernandez DPM, MS Podiatric Physician & Surgeon documented in this encounter [facility] 12-12-2024 Note Established Patient Visit Tatiana Hernandez DPM Patient Name: Gricelda Norman. . Date of : 1960, 64 y.o.. Gender: female. Subjective: Patient is a pleasant 64-year-old female who presents to clinic complaining of right foot pain. Patient states that the pain is primarily to the top of the foot and to the lateral aspect of the right foot. States that she tries to wear good supportive shoes most of the time. States that she had seen an outside prescriptionist in the past who recommended [employer] tennis shoes and inserts. She shows me her shoes today but no inserts. States that the shoes are very uncomfortable and very large for her. States that she tried to exchange them at the specialized shoe store where she obtained them but they declined. No other pedal complaint at this time. Denies fevers, chills, nausea, vomiting, chest pain, shortness of breath, or any other constitutional symptoms. 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 ([facility]) 10/05/2015 Bipolar disorder, most recent episode depressed ([facility]) 12/25/2020 Callus of foot interdigital on right foot CHF (congestive heart failure) ([facility]) Chronic prescription opiate use Circulation problem Controlled substance agreement signed Depression GERD (gastroesophageal reflux disease) Hair loss Heart disease Hyperlipidemia Hypertension Left hip pain 07/26/2022 Migraine 12/25/2020 Myocardial infarct ([facility]) PT STATES SHE HAS HAD 10 HEART ATTACKS FROM 1999 TO 2003 Painful orthopaedic hardware ([facility]) Left first MPJ Weight loss Past Surgical History: Procedure Laterality Date ANGIOPLASTY X 4 APPENDECTOMY N/A BUNIONECTOMY N/A CABG N/A CORONARY ARTERY BYPASS GRAFT EYE SURGERY HERNIA REPAIR N/A JOINT REPLACEMENT knee replacement Right 20+ years ago OPEN HEART I & D ([facility]) 2003 OTHER SURGICAL HISTORY 2004 PER PT QUADRUPLE BYPASS TOTAL HIP ARTHROPLASTY Right 2017 TOTAL KNEE ARTHROPLASTY Left 2019 Physical Examination: BP 126/78 (BP Location: Left arm, Patient Position: Sitting, BP Cuff Size: Adult) Pulse (!) 54 Temp 97.9 degrees F (36.6 degrees C) (Infrared) SpO2 97% General Appearance: Alert, cooperative, no distress, appears stated age. Podiatric Exam Vascular: DP and PT pulses are faintly palpable 1/4. Capillary refill time is less than 3 seconds to distal digits. Skin temperature is warm to warm from proximal tibial tuberosity to distal digit. Localized pitting edema noted to the dorsal and lateral aspect of the right foot. Neurological: Gross sensation is intact. Protective sensation is intact. Dermatologic: No open wounds or ulceration. Palpable fifth metatarsal base prominence plantarly and laterally. Interdigital spaces are clean dry and intact. Musculoskeletal: Pain on palpation to the palpable fifth metatarsal base prominence plantarly and laterally. Pain to the dorsal tarsometatarsal and midfoot joints. Pain significantly at the fourth and fifth tarsometatarsal joints. Patient is able to wiggle digits. Ankle joint range of motion is intact. Muscle strength is 5/5 to dorsiflexors, plantar flexors, inverters and everters. Compartments soft and compressible. No calf pain Diagnoses: 1. Arthritis of right foot 2. Right foot pain XR Foot Right 3+ Views (Standard) Imaging: Right foot 3 views weightbearing radiographs were ordered on 12/12/2024 and I personally interpreted them as follows: No acute fractures or dislocations noted. Intact plate and screw fixation noted across the first metatarsophalangeal joint arthrodesis site. No signs of lucency or failure. Joint space narrowing noted across the tarsometatarsal joints Absence of joint space noted across the talonavicular joint with subchondral sclerosis and dorsal hyperostosis noted. Degenerative arthritic changes noted across the lateral aspect of the subtalar and ankle joints Assessment/Plan: Patient was seen and evaluated. Discussed all clinical findings I ordered, interpreted, and discussed right foot radiographic findings with patient as noted above. Patient has painful arthritic pain noted across the tarsometatarsal joints especially the fourth and fifth tarsometatarsal joints. No pain at the talonavicular joint Discussed conservative treatment option consisting of offloading and stiff wide supportive shoe gear, anti-inflammatories, steroid injection, Voltaren gel, etc. Recommended a steroid injection to the dorsal lateral right foot to help alleviate pain and discomfort. Patient agreed to proceed with this. See procedure below. PROCEDURE: The injection site was prepped with alcohol . Following, a 2 cc of 1: 1 mix of Kenalog 40 mg and 0.5% Marcaine plain was injected into the dorsal lateral fourth and fifth tarsometatarsal joints. Patient tolerated the injection well. (more content not included)... [facility] 12-12-2024 History of Present illness Narrative Images from the original note were not included. Established Patient Visit Tatiana Hernandez DPM Patient Name: Gricelda Norman. . Date of : 1960, 64 y.o.. Gender: female. Subjective: Patient is a pleasant 64-year-old female who presents to clinic complaining of right foot pain. Patient states that the pain is primarily to the top of the foot and to the lateral aspect of the right foot. States that she tries to wear good supportive shoes most of the time. States that she had seen an outside prescriptionist in the past who recommended [employer] tennis shoes and inserts. She shows me her shoes today but no inserts. States that the shoes are very uncomfortable and very large for her. States that she tried to exchange them at the specialized shoe store where she obtained them but they declined. No other pedal complaint at this time. Denies fevers, chills, nausea, vomiting, chest pain, shortness of breath, or any other constitutional symptoms. 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 ([facility]) 10/05/2015 Bipolar disorder, most recent episode depressed ([facility]) 12/25/2020 Callus of foot interdigital on right foot CHF (congestive heart failure) ([facility]) Chronic prescription opiate use Circulation problem Controlled substance agreement signed Depression GERD (gastroesophageal reflux disease) Hair loss Heart disease Hyperlipidemia Hypertension Left hip pain 07/26/2022 Migraine 12/25/2020 Myocardial infarct ([facility]) PT STATES SHE HAS HAD 10 HEART ATTACKS FROM 1999 TO 2003 Painful orthopaedic hardware ([facility]) Left first MPJ Weight loss Past Surgical History: Procedure Laterality Date ANGIOPLASTY X 4 APPENDECTOMY N/A BUNIONECTOMY N/A CABG N/A CORONARY ARTERY BYPASS GRAFT EYE SURGERY HERNIA REPAIR N/A JOINT REPLACEMENT knee replacement Right 20+ years ago OPEN HEART I & D ([facility]) 2003 OTHER SURGICAL HISTORY 2003 PER PT QUADRUPLE BYPASS TOTAL HIP ARTHROPLASTY Right 2017 TOTAL KNEE ARTHROPLASTY Left 2019 Physical Examination: BP 126/78 (BP Location: Left arm, Patient Position: Sitting, BP Cuff Size: Adult) Pulse (!) 54 Temp 97.9 F (36.6 C) (Infrared) SpO2 97% General Appearance: Alert, cooperative, no distress, appears stated age. Podiatric Exam Vascular: DP and PT pulses are faintly palpable 1/4. Capillary refill time is less than 3 seconds to distal digits. Skin temperature is warm to warm from proximal tibial tuberosity to distal digit. Localized pitting edema noted to the dorsal and lateral aspect of the right foot. Neurological: Gross sensation is intact. Protective sensation is intact. Dermatologic: No open wounds or ulceration. Palpable fifth metatarsal base prominence plantarly and laterally. Interdigital spaces are clean dry and intact. Musculoskeletal: Pain on palpation to the palpable fifth metatarsal base prominence plantarly and laterally. Pain to the dorsal tarsometatarsal and midfoot joints. Pain significantly at the fourth and fifth tarsometatarsal joints. Patient is able to wiggle digits. Ankle joint range of motion is intact. Muscle strength is 5/5 to dorsiflexors, plantar flexors, inverters and everters. Compartments soft and compressible. No calf pain Diagnoses: 1. Arthritis of right foot 2. Right foot pain XR Foot Right 3+ Views (Standard) Imaging: Right foot 3 views weightbearing radiographs were ordered on 12/12/2024 and I personally interpreted them as follows: No acute fractures or dislocations noted. Intact plate and screw fixation noted across the first metatarsophalangeal joint arthrodesis site. No signs of lucency or failure. Joint space narrowing noted across the tarsometatarsal joints Absence of joint space noted across the talonavicular joint with subchondral sclerosis and dorsal hyperostosis noted. Degenerative arthritic changes noted across the lateral aspect of the subtalar and ankle joints Assessment/Plan: Patient was seen and evaluated. Discussed all clinical findings I ordered, interpreted, and discussed right foot radiographic findings with patient as noted above. Patient has painful arthritic pain noted across the tarsometatarsal joints especially the fourth and fifth tarsometatarsal joints. No pain at the talonavicular joint Discussed conservative treatment option consisting of offloading and stiff wide supportive shoe gear, anti-inflammatories, steroid injection, Voltaren gel, etc. Recommended a steroid injection to the dorsal lateral right foot to help alleviate pain and discomfort. Patient agreed to proceed with this. See procedure below. PROCEDURE: The injection site was prepped with alcohol . Following, a 2 cc of 1: 1 mix of Kenalog 40 mg and 0.5% Marcaine plain was injected into the dorsal lateral fourth and fifth tarsometatarsal joints. Patient tolerated the injection well. A Band-Aid was applied at the injection site. All questions were answered to patient satisfaction. Patient understands to call with any questions or concerns. Follow-up in 3 weeks for reevaluation. This note was partially created using voice recognition software and is inherently subject to errors including those of syntax and sound-alike substitutions which may escape proofreading. In such instances, original meaning may be extrapolated by contextual derivation. Tatiana Hernandez DPM, MS Podiatric Physician & Surgeon documented in this encounter [facility] 11-19-2024 Note Isabella Delacruz PM Patient Name: Gricelda Norman. . Date of : 1960, 63 y.o.. Gender: female. Subjective: Patient is a pleasant 63-year-old female who presents to clinic complaining of bilateral painful calluses on the outside aspect of her feet. Patient states they are causing her to limp when walking. No other pedal complaints at this time. Denies fevers, chills, nausea, vomiting, chest pain, shortness of breath, or any other constitutional symptoms. 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 ([facility]) 10/05/2015 Bipolar disorder, most recent episode depressed ([facility]) 12/25/2020 Callus of foot interdigital on right foot CHF (congestive heart failure) ([facility]) Chronic prescription opiate use Circulation problem Controlled substance agreement signed Depression GERD (gastroesophageal reflux disease) Hair loss Heart disease Hyperlipidemia Hypertension Left hip pain 07/26/2022 Migraine 12/25/2020 Myocardial infarct (HCC) PT STATES SHE HAS HAD 10 HEART ATTACKS FROM 1999 TO 2003 Painful orthopaedic hardware ([facility]) Left first MPJ Weight loss Past Surgical History: Procedure Laterality Date ANGIOPLASTY X 4 APPENDECTOMY N/A BUNIONECTOMY N/A CABG N/A CORONARY ARTERY BYPASS GRAFT EYE SURGERY HERNIA REPAIR N/A JOINT REPLACEMENT knee replacement Right 20+ years ago OPEN HEART I & D ([facility]) 2004 OTHER SURGICAL HISTORY 2004 PER PT QUADRUPLE BYPASS TOTAL HIP ARTHROPLASTY Right 2017 TOTAL KNEE ARTHROPLASTY Left 2019 Social History Socioeconomic History Marital status: Single Tobacco Use Smoking status: Former Types: Cigarettes Smokeless tobacco: Never Tobacco comments: QUIT IN 1999 Vaping Use Vaping status: Never Used Substance and Sexual Activity Alcohol use: Not Currently Comment: occasionally Drug use: Never Sexual activity: Not Currently Partners: Male Social Drivers of Health Financial Resource Strain: Medium Risk (06/21/2023) Overall Financial Resource Strain (CARDIA) Difficulty of Paying Living Expenses: Somewhat hard Food Insecurity: No Food Insecurity (06/21/2023) Hunger Vital Sign Worried About Running Out of Food in the Last Year: Never true Ran Out of Food in the Last Year: Never true Transportation Needs: No Transportation Needs (03/23/2024) OASIS A1250: Transportation Lack of Transportation (Medical): No Lack of Transportation (Non-Medical): No Patient Unable or Declines to Respond: No Physical Activity: Sufficiently Active (05/12/2023) Exercise Vital Sign Days of Exercise per Week: 5 days Minutes of Exercise per Session: 90 min Stress: No Stress Concern Present (05/12/2023) [place] [employer] - Occupational Stress Questionnaire Feeling of Stress : Only a little Social Connections: Unknown (06/21/2023) Social Connection and Isolation Panel [NHANES] Frequency of Social Gatherings with Friends and Family: Three times a week Recent Concern: Social Connections - Moderately Isolated (06/21/2023) Social Connection and Isolation Panel [NHANES] Frequency of Communication with Friends and Family: More than three times a week Frequency of Social Gatherings with Friends and Family: Three times a week Attends Jehovah'S Witness Services: More than 4 times per year Active Member of Clubs or Organizations: No Attends Club or Organization Meetings: Never Marital Status: Never Housing Stability: Low Risk (05/12/2023) Housing Stability Vital Sign Unable to Pay for Housing in the Last Year: No Number of Places Lived in the Last Year: 1 Unstable Housing in the Last Year: No Physical Examination: BP 131/83 (BP Location: Right arm, Patient Position: Sitting, BP Cuff Size: Adult) Pulse (!) 50 Temp 98.5 degrees F (36.9 degrees C) (Infrared) General Appearance: Alert, cooperative, no distress, appears stated age. Podiatric Exam Vascular: DP and PT pulses are nonpalpable. Capillary refill time is less than 3 secs to distal digits. Skin temperature is warm to cool from proximal tibial tuberosity to distal digit. No appreciable edema antibiotic for ankle Neurological: Gross sensation is intact. Protective sensation is intact. Dermatologic: Small porokeratotic lesion is noted to the plantar aspect of the left foot subfifth metatarsal head. Upon debridement of lesion, a nucleated core is noted. No surrounding erythema, edema or any acute signs of infection. Interdigital spaces are clean dry and intact. Musculoskeletal: Pain on palpation to the lateral right foot at the fifth metatarsal base. Generalized discomfort to the dorsal aspect of the bilateral feet across the midfoot joints. Pain on palpation subfifth metatarsal head, left foot. Ankle joint range of motion is intact. Muscle strength is 5/5 to dorsiflexors, plantar flexors, inverters and everters. (more content not included)... [facility] 11-19-2024 History of Present illness Narrative Images from the original note were not included. Tatiana Hernandez DPM Patient Name: Gricelda Norman. . Date of : 1960, 63 y.o.. Gender: female. Subjective: Patient is a pleasant 63-year-old female who presents to clinic complaining of bilateral painful calluses on the outside aspect of her feet. Patient states they are causing her to limp when walking. No other pedal complaints at this time. Denies fevers, chills, nausea, vomiting, chest pain, shortness of breath, or any other constitutional symptoms. 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 ([facility]) 10/05/2015 Bipolar disorder, most recent episode depressed ([facility]) 12/25/2020 Callus of foot interdigital on right foot CHF (congestive heart failure) (HCC) Chronic prescription opiate use Circulation problem Controlled [...] Right 2017 TOTAL KNEE ARTHROPLASTY Left 2019 Social History Socioeconomic History Marital status: Single Tobacco Use Smoking status: Former Types: Cigarettes Smokeless tobacco: Never Tobacco comments: QUIT IN 1999 Vaping Use Vaping status: Never Used Substance and Sexual Activity Alcohol use: Not Currently Comment: occasionally Drug use: Never Sexual activity: Not Currently Partners: Male Social Drivers of Health Financial Resource Strain: Medium Risk (06/21/2023) Overall Financial Resource Strain (CARDIA) Difficulty of Paying Living Expenses: Somewhat hard Food Insecurity: No Food Insecurity (06/21/2023) Hunger Vital Sign Worried About Running Out of Food in the Last Year: Never true Ran Out of Food in the Last Year: Never true Transportation Needs: No Transportation Needs (03/23/2024) OASIS A1250: Transportation Lack of Transportation (Medical): No Lack of Transportation (Non-Medical): No Patient Unable or Declines to Respond: No Physical Activity: Sufficiently Active (05/12/2023) Exercise Vital Sign Days of Exercise per Week: 5 days Minutes of Exercise per Session: 90 min Stress: No Stress Concern Present (05/12/2023) [place] [employer] - Occupational Stress Questionnaire Feeling of Stress : Only a little Social Connections: Unknown (06/21/2023) Social Connection and Isolation Panel [NHANES] Frequency of Social Gatherings with Friends and Family: Three times a week Recent Concern: Social Connections - Moderately Isolated (06/21/2023) Social Connection and Isolation Panel [NHANES] Frequency of Communication with Friends and Family: More than three times a week Frequency of Social Gatherings with Friends and Family: Three times a week Attends Jehovah'S Witness Services: More than 4 times per year Active Member of Clubs or Organizations: No Attends Club or Organization Meetings: Never Marital Status: Never Housing Stability: Low Risk (05/12/2023) Housing Stability Vital Sign Unable to Pay for Housing in the Last Year: No Number of Places Lived in the Last Year: 1 Unstable Housing in the Last Year: No Physical Examination: BP 131/83 (BP Location: Right arm, Patient Position: Sitting, BP Cuff Size: Adult) Pulse (!) 50 Temp 98.5 F (36.9 C) (Infrared) General Appearance: Alert, cooperative, no distress, appears stated age. Podiatric Exam Vascular: DP and PT pulses are nonpalpable. Capillary refill time is less than 3 secs to distal digits. Skin temperature is warm to cool from proximal tibial tuberosity to distal digit. No appreciable edema antibiotic for ankle Neurological: Gross sensation is intact. Protective sensation is intact. Dermatologic: Small porokeratotic lesion is noted to the plantar aspect of the left foot subfifth metatarsal head. Upon debridement of lesion, a nucleated core is noted. No surrounding erythema, edema or any acute signs of infection. Interdigital spaces are clean dry and intact. Musculoskeletal: Pain on palpation to the lateral right foot at the fifth metatarsal base. Generalized discomfort to the dorsal aspect of the bilateral feet across the midfoot joints. Pain on palpation subfifth metatarsal head, left foot. Ankle joint range of motion is intact. Muscle strength is 5/5 to dorsiflexors, plantar flexors, inverters and everters. Compartments soft and compressible. No calf pain Diagnoses: 1. Acquired plantar porokeratosis 2. Bilateral foot pain Assessment/Plan: Patient was seen and evaluated. Discussed all clinical findings. Patient has 2 acquired porokeratotic lesion noted to the left foot subfifth metatarsal head, bilaterally. Using a 4 mm ring curette, the nucleated core was removed. Patient expressed some pain relief following the procedure. Discussed using a pumice stone to prevent buildup of callus formation. All questions were answered to patient satisfaction. Patient understands to call with any questions or concerns. Patient has elected to follow-up as needed. This note was partially created using voice recognition software and is inherently subject to errors including those of syntax and sound-alike substitutions which may escape proofreading. In such instances, original meaning may be extrapolated by contextual derivation. Tatiana Hernandez DPM, MS Podiatric Physician & Surgeon documented in this encounter [facility] 08-14-2024 Note NEW Patient Visit Tatiana Hernandez DPM Patient Name: Gricelda Norman. . Date of : 1960, 63 y.o.. Gender: female. Subjective: Patient is a pleasant 63-year-old female who presents to clinic complaining of bilateral bumps on the outside aspect of her feet. Patient states that the bumps on her left foot has been there for 3 years. Reports that she has had orthotics/inserts with minimal improvement. She continues to have significant pain and discomfort with ambulation. No other pedal complaints at this time. Denies fevers, chills, nausea, vomiting, chest pain, shortness of breath, or any other constitutional symptoms. 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) 10/05/2015 Bipolar disorder, most recent episode depressed ([facility]) 12/25/2020 Callus of foot interdigital on right foot CHF (congestive heart failure) ([facility]CC) Chronic prescription opiate use Circulation problem Controlled [...] Right 2017 TOTAL KNEE ARTHROPLASTY Left 2019 Social History Socioeconomic History Marital status: Single Tobacco Use Smoking status: Former Types: Cigarettes Smokeless tobacco: Never Tobacco comments: QUIT IN 1999 Vaping Use Vaping status: Never Used Substance and Sexual Activity Alcohol use: Not Currently Comment: occasionally Drug use: Never Sexual activity: Not Currently Partners: Male Social Determinants of Health Financial Resource Strain: Medium Risk (06/21/2023) Overall Financial Resource Strain (CARDIA) Difficulty of Paying Living Expenses: Somewhat hard Food Insecurity: No Food Insecurity (06/21/2023) Hunger Vital Sign Worried About Running Out of Food in the Last Year: Never true Ran Out of Food in the Last Year: Never true Transportation Needs: No Transportation Needs (03/23/2024) OASIS A1250: Transportation Lack of Transportation (Medical): No Lack of Transportation (Non-Medical): No Patient Unable or Declines to Respond: No Physical Activity: Sufficiently Active (05/12/2023) Exercise Vital Sign Days of Exercise per Week: 5 days Minutes of Exercise per Session: 90 min Stress: No Stress Concern Present (05/12/2023) [place] [employer] - Occupational Stress Questionnaire Feeling of Stress : Only a little Social Connections: Unknown (06/21/2023) Social Connection and Isolation Panel [NHANES] Frequency of Social Gatherings with Friends and Family: Three times a week Recent Concern: Social Connections - Moderately Isolated (06/21/2023) Social Connection and Isolation Panel [NHANES] Frequency of Communication with Friends and Family: More than three times a week Frequency of Social Gatherings with Friends and Family: Three times a week Attends Jehovah'[employer] Witness Services: More than 4 times per year Active Member of Clubs or Organizations: No Attends Club or Organization Meetings: Never Marital Status: Never Housing Stability: Low Risk (05/12/2023) Housing Stability Vital Sign Unable to Pay for Housing in the Last Year: No Number of Places Lived in the Last Year: 1 Unstable Housing in the Last Year: No Physical Examination: BP 110/75 (BP Location: Left arm, Patient Position: Sitting, BP Cuff Size: Adult) Pulse 75 Temp 98.4 degrees F (36.9 degrees C) (Temporal) General Appearance: Alert, cooperative, no distress, appears stated age. Podiatric Exam Vascular: DP and PT pulses are nonpalpable. Capillary refill time is less than 3 secs to distal digits. Skin temperature is warm to cool from proximal tibial tuberosity to distal digit. No appreciable edema antibiotic for ankle Neurological: Gross sensation is intact. Protective sensation is intact. Dermatologic: Small porokeratotic lesion is noted to the plantar aspect of the left foot subfifth metatarsal head. Upon debridement of lesion, a nucleated core is noted. No surrounding erythema, edema or any acute signs of infection. Interdigital spaces are clean dry and intact. Musculoskeletal: Pain on palpation to the lateral right foot at the fifth metatarsal base. Generalized discomfort to the dorsal aspect of the bilateral feet across the midfoot joints. Pain on (more content not included)... [facility] 03-06-2024 Patient's home Pr ogress note Patient had a MRI today and nurse had to return later to perform PICC line care and was unable to draw labs ,missing specific lab tubes will need to return tomorrow to perform teat results. Patient stated she is still having pain to lower mid back.with swelling ot the left side of her spine. Physician will contact patient for test results when resulted out. Patient is getting around fairly well gait is steady around home. PICC line care performed patient tolerated well. documented in this encounter [id number] Patient's home Progress note* Narratives The patient denies any edward es in her pain level; she notes a significant increase last week but it has somewhat returned to normal. She denies any change d/t PT. I advised her to continue her IV antibiotics and to go to outpatient aquatics in 3 weeks once she has been dc from [facility]. documented in this encounter [id number] Patient's home Progress note* Actions Patient compllaining of pain to left side of the backradiating down the left side causing pain. And Discomfort. Causing her to have intermittent sleep at night. Denies any problems with eating ,though is having a lot of diarrhea since starting IVAB. Patient is scheduled to see her surgeon this . Will contact primary regarding her B/P elevation though patient is stating she is having severe pain to her back.Patient has some swelling to the left side of her spine tender to touch and slight firm area palpated Narratives Patient and/or caregiver res ponse to discharge planning education: Goal is to be able to walk and be free of pain get back to gardening and yard work documented in this encounter [id number] Patient's home Progress note* Actions Patient is continuing with p ain of 9-10/ States she is only willing to take Tylenol and declines to take any stronger pain meds. Patient also stated she was out walking yesterday with daughter and feels like she over did it. ENcouraged to pace herself to prevent damage to back and increased pain . Patient has swelling ot her right lower leg an had a brett wrap on it stated she has been having pain and increased swelling. SHe has an appointment scheduled for this week with her PCP to evaluate.Educated on elevation and rest of leg until seen documented in this encounter [id number] Procedure [facility]03-20-2024 History and physical note Author Joe Garcia February 01, 2024 11:41am Note Date/Time February 01, 2024 11: 42am [facility] Medical Records Department [address] [place] [address] History & Physical Exam 02/01/24 1141 MR#: [id number] Acct: [id number] Name: GRICELDA NORMAN Rep #:[id number] : 1960 63 From: Joe Garcia MD PCP: Dr. Marietta Johnson, DO Sta tus:[facility] [place] Location: [place] [address] History and Physical MR#: [id number] Acct: [id number] Name: GRICELDA NORMAN Rep #: [id number] : 1960 Provider: Dr. Joe Garcia MD Age/Sex: 63/F Location: [facility] Status: Signed Intake Vital Signs 12/20/2415:18 Height 5 ft 3 in Intake Visit Reasons: lumbar spine Is patient in pain?: Yes Allergies Iodinated Contrast Media Allergy (Verified 01/24/24 15:14) RashPenicillins Allergy (Verified 01/24/24 15:14) Swelling [facility] Medical History (Updated 01/24/24 @ 15:17 by Low CLANCY, PA) Arthritis Bipolar disorder Cardiology follow-up encounter Contact with or exposure to viral disease Coronary artery disease Edema Former smoker GERD (gastroesophageal reflux disease) Heart disease High cholesterol History of echocardiogram History of stress test Hypertension Migraines Restless leg syndrome Wears dentures Surgical History (Updated 01/18/24 @ 13:03 by Monalisa Manriquez) History of bunionectomy History of cardiac catheterization History of coronary artery bypass graft x 3 History of lumbosacral spine surgery (~04/2023) History of total left hip arthroplasty History of total left knee replacement History of total replacement of left shoulder joint History of total right hip arthroplasty History of total right knee replacement Social History Smoking Status: Former smoker alcohol intake: never HPI lumbar spine Details: This documentation accurately reflects the service provided and the decisions made by me, Dr. Joe Garcia MD 01/24/24 5093. Part of today?s visit was documented by [ ], acting as scribe. GRICELDA NORMAN is a 63 year old F here today for her pre op appointment on her lumbar spine. Patient states that she is having increased low back pain. She denies any injury but states that she feels like something moved. She is ready for surgery for next week. Patient denies any changes in her medications or allergies. Gricelda continues to have severe pain which seems to have aggravated over the last 2 days. She does not remember any injury. She feels like a sharp stabbingpain in the left paraspinal region near the mid to upper areas of her previous incisions. Because of her new worsening pain, I obtained new x-rays today in the clinic. Following is a previous history. 01/10/24: GRICELDA NORMAN is a 63 year old F here today to go over her MRI results. Patient states her pain was a little worse when she had the MRI but it is a little better. Patient states they had to help her off the table. Patient is taking Percocet at home that she is taking PRN from her PCP. Gricelda continuesto have significant lower back pain, which is predominantly left paraspinal in the mid lumbar spine region. She is here with her daughter today. She underwent labs and MRI of lumbar spine recently and is here to review the images. Following is a previous history. 12/23/23: GRICELDA NORMAN is a 63 year old F here today for CT review of lumbar spine. Patient states that she feels the same as her last visit. She states she has recently had sharp pains going from her lumbar spine down into her buttocks.She states this has been off and on but has been more dominant within the last week. Gricelda continues to have pain in the left paraspinal region of her lumbar spine over all the upper 3 incisions. She denies any radiation of pain to the lower extremities. She was seen by me previously about a week to 10 days ago and I had ordered a CT scan. She is here to review the images. Following is a previous history. 12/15/23: GRICELDA NORMAN is a 63 year old F here today NEW patient for low back pain She states that she fx L3 and had surgery to fix it. She states that she fell backwards on cement after trying to get her dog on March 06, 2023. She states that they put rods in. She states that surgery was May 06, 2023 which was done by Dr. Fitzgerald at . She states that the surgery never relieved her pain. She states that she's never seen him since the surgery. She does have paininto her left buttocks and down the leg. Denies numbness, tingling or other associated symptoms. Pt did bring disc with imaging. She states that standing andsquatting. She states that she feels her low back is weak but is unable to afford PT, she denies PT due to this. She states that her PCP gave her Percocet but she doesn't take it often. She states she had injections with Dr. Brennan [facility] but is unsure what type of injection. Gricelda was trying to reach her dog inApril when she fell backwards onto concrete and sustained an L3 burst fracture. She says that she has been diagnosed with osteoporosis recently but has not started any medications for it. After the fall in February she went to the emergency room the next day and was referred to orthopedic spine Dr. Fitzgerald. For some reason Dr. Fitzgerald recommended surgery but did not do it until April months after the injury. She did undergo extensive cardiac preop workup as well as MRI lumbar spine prior to the surgery in April. After the surgery she did not get relief and continued to have back pain. While initially her pain was midline and towards both paraspinal regions, after surgery it was predominantly towards the left side in the paraspinal region. She has a vague bilateral lower extremity radicular pain that goes up into the calf muscles bilaterally. She is able to walk without any ambulatory aid but has severe difficulty. Prior to the fall in February she did not have any back symptoms. Shewas however recovering from bilateral total hip replacement done just a year before in 2021. She has not followed up with her hip surgeon recently. She wasalso not able to follow-up with her spine surgeon after surgery. She has seen apain doctor who has tried possibly SI joint injections which did not help. Ortho Exam General General: Yes no acute distress Neurologic: Yes alert and Yes oriented x3 Spine SPINE TESTING CERVICAL THORACIC LUMBAR Musculoskeletal Strength 0=absent - 5=normal Details: Examination of the lower back shows multiple paraspinal incisional scars in the lumbar spine. There is midline and left paraspinal tenderness all along the lumbar spine. Neurologic evaluation of lower extremity shows 5 x 5 power in allgroups except for bilateral hip flexion which is painful. Results POC SARS AG POC SARS AG Negative Last Edit by Carolynn Frances on 01/24/24 15:23 Coding Level of Care Code Off vis,est,level 4 Diagnoses Status post lumbar spinal fusion Z98.1 Other mechanical complication of internal fixation device of vertebrae, sequela T84.296S Time Spent (min) 45 Assessment and Plan Assessment and Plan (1) Status post lumbar spinal fusion: Status: Acute (2) Other mechanical complication of internal fixation device of vertebrae, sequela: Status: Acute Orders: Orders Lumbar Spine 2 or 3 Views Today M54.50 - Low back pain, unspecified Plan I obtained new x-rays of her lumbar spine today in the clinic. These are unchanged from previous. I again reviewed her previous x-rays and CT and MRI. These show L1-4 posterior spinal fusion done for L3 burst fracture. There seemsto be L1 bilateral screw loosening with encroachment into the T12-L1 disc space. This is confirmed on the MRI with T12-L1 Modic changes. No obvious increase instenosis noticed. L4-S1 also show disc degeneration without any significant central or foraminal stenosis. No evidence of infection or collection. There is a possible seroma in the left lower screw paramedian region. This is significantly reduced from the size seen in the June 2023 MRI. I also reviewed the recent labs done. ESR and CBC are normal with no increased white count. CRP is mildly elevated. Considering the MRI findings and only mildly elevated CRP, the possibility of low-grade infection is low but nonzero. I explained to her options of treatmentwhich include continued nonoperative treat measures versus surgery. At this point the L1 screws have significantly increased into the T12-L1 disc space 7 causing significant disc degeneration and possibly source of endplate irritationand pain. I recommended removal of the L1 screws bilaterally and cutting the alvaro right above the L2 screws bilaterally. L2-4 screws seem to have good purchase although the left L4 screws shows mild halo. I explained to the patient that I would leave the L2-4 screws intact because of 2 reasons?1 the possibility infection is low, and second these would help stabilize the L3 burstfracture on the long-term basis. I explained to her that intraoperatively if I find purulence while removing the L1 screws, might make an intraoperative decision of removing the entire instrumentation from L1-4. Patient was agreeable with the plan. All risk benefits and alternatives were discussed with the patient. The risks include but are not limited to infection, bleeding,injury to nerves and vessels, hematoma formation, and need for further surgery, persistent hardware loosening, pseudoarthrosis, facet arthrosis, DVT, pulmonary embolism, pneumonia, atelectasis, cardiopulmonary event. Persistent pain with worsening disc degeneration at T12-L1 with possible kyphotic deformity at this level was discussed, which may require surgery at a future date that might need extension of fusion crossing the TL junction into the lower thoracic spine. However, at this time minimal surgery with L1 screw removal bilaterally might help significantly with her current axial pain. Consent was signed. 02/01/24 1141 <Electronically signed by Joe Garcia MD> Cosigner Signature (if applicable): CC: Dr. Marietta Johnson, DO; Dr. Joe Garcia MD~ Signed Work Phone: 1(585) 909-666203-20-2024 Procedure [facility] 01-20-2024 History of Present illness Narrative* Susan Buck APRN.TREASURY CONSULTANT - 01/20/2024 3:30 PM EST PRIMARY CARE PHYSICIAN: Liliya Lara [address] [place] [address] Chief Complaint Patient presents with: Cardiology Follow Up : Cardiac clearance HISTORY OF PRESENT ILLNESS: Ms. Norman is a 63 year old female who is known to Dr. Espino last seeing him in the office in October 2022, she also follows with Dr. Woo at [facility] patient has a history ofcoronary artery disease status post coronary bypass graft surgery, hyperlipidemia, hypertension, chronic diastolic heart failure, bradycardia Patient has no cardiac complaints to offer, she remains very physically active unfortunately this back pain has lessened her physical ability however she still is able to maintain a part-time job at the local [employer]. Patient is here today for preoperative cardiovascular assessment for hardware/screw removal of lumbar spine. PAST MEDICAL HISTORY Diagnosis Date Acute myocardial [...] Types: Cigarettes Quit date: 08/27/2001 Years since quittin.4 Smokeless tobacco: Never Tobacco comments: d/c 08/27/01 Vaping Use Vaping Use: Never used Substance Use Topics Alcohol use: Yes Comment: [facility] [place] Drug use: No ALLERGIES Allergen Reactions Adhesive Rash, Itching Plastic bandaids Iv Dye [Iodine] Anaphylaxis Neosporin [Neomycin* Rash, Itching Penicillins Other: See Comments convulsions Medications: Current Outpatient Medications Medication Sig Dispense Refill traZODone (DESYREL) 100 mg tablet Take 100 [...] Take 81 mg by mouth once daily. No current facility-administered medications for this visit. Review of Systems Constitutional: Negative for malaise/fatigue. HENT: Negative for congestion. Eyes: Negative for blurred vision. Respiratory: Negative for shortness of breath. Cardiovascular: Negative for chest pain, palpitations, orthopnea and leg swelling. Gastrointestinal: Negative for blood in stool and nausea. Musculoskeletal: Positive for back pain, falls and joint pain. Neurological: Negative for dizziness, tingling, speech change, loss of consciousness and weakness. Endo/Heme/Allergies: Does not bruise/bleed easily. Psychiatric/Behavioral: The patient does not have insomnia. Physical Examination: Vitals:BP 98/66 Pulse 62 Resp 18 Ht 5' 3 (1.60m) Wt 202 lb 1.6 oz (91.7kg) SpO2 95[room air]% BMI 35.81 kg/(m^2). Last 2 Encounter Wt Readings: Date: [...] on 02/04/2012 ([place]). Similar resting findings. 02/05/21: [facility]: Summary 1. Mildly enlarged left ventricular chamber. [...] focal disease. _ The mid circumflex - GOLF COURSE ASSISTANT and ISR. Additional Comment: - the LCx [...] the proximal OM1 with known occluded SVG-OM1; GOLF COURSE ASSISTANT of the mid LCx stent and patent ROSAS-OM2; SVG-OM3 graft is known to be occluded - RCA with mild luminal irregularities Recommended Treatment: Medical Therapy. 01/29/22: Patient Name: Gricelda Norman : 1960 Ordering Provider: Low Mohr [...] the proximal OM1 with known occluded SVG-OM1; GOLF COURSE ASSISTANT of the mid LCx stent and patent [...] symptoms of unstable angina, myocardial infarction, decompensated heartfailure, severe aortic stenosis, malignant arrhythmias. In addition, they can engage in at least 4 METS of physical activity without cardiac limitations. RCRI is __6.6__ percent.Patient is at_moderate____ cardiac risk for myocardial Infarction, Pulmonary Edema, Ventricular Fibrillation, Cardiac Arrest or Complete Heart Block and is medically optimized for the same. Cardiac risk reviewed in detailwith patient who voices understanding. A copy of [...] a monitor for serial review, she states hermother did have a pacemaker 5. Hyperlipidemia: On atorvastatin therapy Healthy diet structured exercise Susan Buck APRN.KATARINA Follow up planning: Call for questions or concerns. Return in 6 months Electronically signed by Susan Buck APRN.CNP The above note was partially created using a dictation recognition software. A reasonable attempt has been made to correct any errors. I spent >20 minutes in the visit, which included a review of the patients pertinent past medicalhistory, history of present health status, review of systems, assessment & planning, counseling, and further coordination of care. [facility] Nurse Note* Nelly Alcazar LPN - 01/20/2024 3:13 PM EST Patient denies cardiac complaints or symptoms. documented in this encounterTwin City [facility]02-29-2024 Miscellaneous Notes* Telephone Encounter - Margarette Corey - 01/12/2024 3:09 PM EST Lvm to notify pt of pre-op zee on 01/19/24 @11 am w/ Susan Buck in [place]. Clearance received from Dr. Jose barriga/ [facility] for a L1 screw removal, possible removal of L1-4 hardware. Clearance scanned in for pre-op zee. Margarette Corey January 12, 2024 3:11 PM documented in this encounterTwin City [facility]12-11-2023 History of Present illness Narrative* Elizabeth Dumas RT(R) - 10/24/2023 2:30 PM EST Radiology Service Progress Note PATIENT NAME: Gricelda Norman DATE OF SERVICE: October 24, 2023 TIME: 2:17 PM PATIENT IDENTITY VERIFICATION COMPLETED USING TWO (2) IDENTIFIERS: Name and Date of confirmedby patient verbally. FALL SCREENING: Has the patient [...] 24, 2023 2:17 PM documented in this encounterTwin City Hospital12-11-2023 History of Present illness Narrative* Ale Carrion APRN.TREASURY CONSULTANT - 10/24/2023 11:20 AM EST SPINE SURGERY ESTABLISHED VISIT This is an in-person visit. DATE OF SERVICE: 10/24/2023 DATE OF LAST VISIT: 09/06/2023 SUBJECTIVE: HPI:Gricelda Norman is a 62 year old female [...] rid of this pain. She also stated thatshe did not do PT after her last [...] of multiple sites (Z98.1) S/P lumbar fusion Gricelda Norman will continue with medical management of [...] inflammation. I discussed with her that rheumatology canlook at her holistically from a metabolic bone [...] a fresh set of eyes on her painas well as a treatment plan. Patient agreeable [...] which included preparing to see the patient, [id number] patient care, completing clinical documentation, obtaining and/or reviewing separately obtained history, performing a medically appropriate examination, counseling and educating the pat ient/family/caregiver, independently interpreting results (not separately reported), and communicating results to the patient/family/caregiver. SIGNATURE: Ale Carrion APRN.CNP PATIENT NAME: Gricelda Norman DATE: October 24, 2023 TIME: 9:24 AM PAGER: documented in this encounterNicole [place] [id number] Procedure note* Ashley Gavin MD - 09/26/2023 3:53 PM EST Procedure Note Sacroiliac Joint Injection Procedure Date: 09/26/2023 Gricelda Norman Date of : 1960 Attending: Ashley [...] including EKG leads, blood pressure cuff, and pulseoximetry. A youth associate film was taken to identify the correct level. The skin was prepped and draped in the usual sterile fashion. The overlying skin and subcutaneous tissue was anesthetized using a 25- gauge 1-1/2inch needle with 1% preservative-free lidocaine for a total volume of 3 mls. Then a 22-gauge 3.5-inch Quincke spinal needle was advanced into the joint space under intermittent fluoroscopic guidance.Needle position was confirmed on both AP and [...] COMPLICATIONS: None Comment(s): None documented in this encounterTwin City Hospital11-13-2023 History of Present illness Narrative* Evi East RN - 09/26/2023 3:00 PM EST NON-SEDATION PROCEDURE FORM September 26, 2023 7:55 AM Room Number: S7-729 Fluoroscopy suite ID verified: Yes Arrived via indpendent ambulation 62 year old Weight: Last 2 Encounter Wt Readings: Date: Wt: 09/06/2023 86.6 kg (191 lb) 04/28/2023 85.3 kg (188 lb) Indication for Procedure (Associated Diagnoses): low back pain Procedure ordered: Intra-articular Sacroiliac joint injection: Left Verified by patient by: Dr. Gavin Outside Sales Consultant for post spine injection procedure: Yes Patient [...] FAMILY RESPONSE: Verbalizes understanding of: POST-PROCEDURE INSTRUCTIONS-Correct actionsto take to reduce post procedure complications Information [...] Visit or Virtual Visit: 2-4 weeks with Ale Carrion. Patient reminded to bring pain diary to follow appointment. If follow up appointment indicated on order, patient encouraged to schedule follow up appointment at S70 desk for 2-4 weeks post procedure or by calling [phone], Spine [facility] central scheduling. Discharge as above criteria met: Yes Condition of surgical/injection site at discharge: dry, intact, other: Yes September 26, 2023 Additional notes: Patient without further questions. Discharge time: 1602 documented in this encounterTwin City Hospital11-13-2023 History and physical note * Magnus Varela MD - 09/26/2023 2:44 PM EST UPDATED HISTORY AND PHYSICAL EXAMINATION PATIENT NAME: Gricelda Norman SERVICE DATE: 09/26/2023 The History and Physical (completed in the past 30 days) has been reviewed and the patient has beenexamined. The contents accurately reflect the patient's condition [...] the anatomical location of the SIJs between theupper level of the iliac crests and gluteal [...] explained to patient by surgeon with explicit agreementby patient or patient automotive sales representative before surgery. SIGNATURE: Magnus Varela MD DATE: September 26, 2023 TIME: 2:44 PM documented in this encounterTwin City Hospital11-13-2023 Nurse Note* Amol Salazar LPN - 09/26/2023 2:24 PM EST PATIENT NAME: Gricelda Norman 1960 62 year old Current medications and allergies reviewed with patient in visit navigator: Yes Baseline vital signs and pain assessment entered in activity in visit navigator: Yes Outside Sales Consultant for post spine injection procedure: Yes First Name: Joyce Relationship: daughter Pre-procedure pain level on 0-10 scale 10 Patient gender: Female. Is there any chance the patient could be ? No. Menstrual Date: Postmenopausal Undergone Injection in the past: Yes Time [...] 26, 2023 2:24 PM documented in this encounterTwin City Hospital11-08-2023 Miscellaneous Notes* Telephone Encounter - Isabelle Daniel RN - 09/21/2023 1:31 PM EST Neuro SPINE CARE COORDINATION QUICK NOTE Called [...] premedicating prior to procedure. Isabelle Daniel RN Research And Development Specialist * Telephone Encounter - Ruba Suarez - 09/21/2023 12:53 PM EST Patient is calling in with questions about her medication prednisone Ph. [phone] documented in this encounterTwin City Hospital11-07-2023 Miscellaneous Notes* Telephone Encounter - Alina Kilgore RN - 09/20/2023 8:17 AM EST Neuro SPINE CARE COORDINATION QUICK NOTE 09/19/23 R side completed. Patient to schedule L side - scheduled for 09/26/23 documented in this encounterTwin City Hospital11-06-2023 History of Present illness Narrative* Evi East RN - 09/19/2023 2:41 PM EST NON-SEDATION PROCEDURE FORM September 19, 2023 2:41 PM Room Number: S7-729 Fluoroscopy suite ID verified: Yes Arrived via indpendent ambulation 62 year old Weight: Last 2 Encounter Wt Readings: Date: Wt: 09/06/2023 86.6 kg (191 lb) 04/28/2023 85.3 kg (188 lb) Indication for Procedure (Associated Diagnoses): low back pain Procedure ordered: Intra-articular Sacroiliac joint injection: Bilateral Verified by patient by: Dr. Gavin Outside Sales Consultant for post spine injection procedure: Yes Patient [...] FAMILY RESPONSE: Verbalizes understanding of: POST-PROCEDURE INSTRUCTIONS-Correct actionsto take to reduce post procedure complications Information [...] daughter without further questions. Discharge time: 1446 * Courtney Ryan MA - 09/19/2023 1:21 PM EST PATIENT NAME: Gricelda Norman 1960 62 year old Current medications and allergies reviewed with patient in visit navigator: Yes Baseline vital signs and pain assessment entered in activity in visit navigator: Yes Outside Sales Consultant for post spine injection procedure: Yes First [...] 19, 2023 1:25 PM documented in this encounterTwin City Hospital11-06-2023 Procedure note* Ashley Gavin MD - 09/19/2023 2:26 PM EST Procedure Note Sacroiliac Joint Injection Procedure Date: 09/19/2023 Gricelda Norman Date of : 1960 Attending: Ashley [...] blood pressure cuff, and pulse oximetry. A youth associate film was taken to identify the correct level. The skin was prepped and draped in the usual sterile fashion. The overlying skin and subcutaneous tissue was anesthetized using a 25- gauge 1-1/2inch needle with 1% preservative-free lidocaine for a total volume of 3 mls. Then a 22-gauge 3.5-inch Quincke spinal needle was advanced into the joint space under intermittent fluoroscopic guidance.Needle position was confirmed on both AP and [...] multiple attempts Comment(s): None documented in this encounterTwin City Hospital11-06-2023 History and physical note * Magnus Varela MD - 09/19/2023 1:20 PM EST UPDATED HISTORY AND PHYSICAL EXAMINATION PATIENT NAME: Gricelda Norman SERVICE DATE: 09/19/2023 The History and Physical (completed in the past 30 days) has been reviewed and the patient has beenexamined. The contents accurately reflect the patient's condition [...] the anatomical location of the SIJs between theupper level of the iliac crests and gluteal [...] explained to patient by surgeon with explicit agreementby patient or patient automotive sales representative before surgery. SIGNATURE: Magnus Varela MD DATE: September 19, 2023 TIME: 1:20 PM documented in this encounterTwin City Hospital10-31-2023 Miscellaneous Notes* Addendum Note - Alina Kilgore RN - 09/13/2023 5:06 PM EDTAddended by: ALNIA KILGORE on: 09/13/2023 05:06 PM Modules accepted: Orders * Telephone Encounter - Alina Kilgore RN - 09/13/2023 4:31 PM EDT Neuro SPINE CARE COORDINATION QUICK NOTE Preparations for Spine Injection Procedure [place] [facility]: Spoke to patient and reviewed instructions. Encouraged patient to review [employer] message and contact the office with any [...] Diabetic: No Patient notified: Must have a courtesy driver that will remain present for entire procedure: Yes REQUIRED Nothing to eat or drink for 6 hours prior to this injection performed at [facility]. Take routine medications when they are normally due with small amount of water up to 2 hours prior. Avoid pain medications or OTC pain relievers the day of the injection. Provided education on spine injection procedure and answered questions. Given office phone number [phone] and [address] [phone] for any location or scheduling questions. Patient verbalized understanding of above instructions: Yes [employer] message sent with instructions: Yes TANK Uribe, RN September 13, 2023 4:48 PM documented in this encounterTwin City Hospital10-20-2023 Miscellaneous Notes* Telephone Encounter - Isabelle Daniel RN - 09/02/2023 11:45 AM EDT Neuro SPINE CARE COORDINATION QUICK NOTE Pt has not yet been seen. First appt scheduled for 09/[address] Brennan. Isabelle Daniel, RN Research And Development Specialist * Telephone Encounter - Danielle Samayoa - 09/02/2023 10:22 AM EDT Received the following record(s) via . -MRI L Spine wo Date 04/14/23 Record(s) scanned into pt's chart. Imaging already uploaded Danielle Samayoa documented in this encounterTwin City Hospital10-16-2023 NoteHNO ID: [id number] Author: Laura Acosta RT(R) Service: ? Author Type: Technologist Type: Progress Notes Filed: 08/29/2023 1:04 PM Note Text: Radiology Service Progress Note PATIENT NAME: Gricelda Norman DATE OF SERVICE: August 29, 2023 [...] BY: RT Zhao(R) August 29, 2023 1:03 PMRegional Medical [id number] History of Present illness Narrative* Laura Acosta RT(R) - 08/29/2023 1:00 PM EDT Radiology Service Progress Note PATIENT NAME: Gricelda Norman DATE OF SERVICE: August 29, 2023 TIME: 1:03 PM PATIENT IDENTITY VERIFICATION COMPLETED USING TWO (2) IDENTIFIERS: Name and Date of confirmedby patient verbally. FALL SCREENING: Has the patient [...] 29, 2023 1:03 PM documented in this encounterTwin City Hospital10-02-2023 Evaluation + Plan note* Assessment & Plan Note - Liliya Lara MD - 08/15/2023 12:48 PM EDTAssociated Problem(s): Dermatitis triamcinalone cream prescribed Discussed lifestyle modifications which can help prevent dry skin [id number] Miscellaneous Notes* Assessment & Plan Note - Liliya Lara MD - 08/15/2023 12:48 PM EDTAssociated Problem(s): Dermatitis triamcinalone cream prescribed Discussed lifestyle modifications which can help prevent dry skin * Assessment & Plan Note - Liliya Lara MD - 08/15/2023 12:47 PM EDTAssociated Problem(s): Anxiety Continue lexapro 10mg daily Advised pt to follow up with counseling- but pt reports financial difficulties at this time -social work has reached out to pt to discuss options * Assessment & Plan Note - Liliya Lara MD - 08/15/2023 12:47 PM EDTAssociated Problem(s): Essential hypertension controlled * Assessment & Plan Note - Liliya Lara MD - 08/15/2023 12:46 PM EDTAssociated Problem(s): Restless leg requip prescribed * Assessment & Plan Note - Liliya Lara MD - 08/15/2023 12:31 PM EDTAssociated Problem(s): Chronic low back pain S/p lumbar [...] most pronounced at L4-L5 and L5-S1 with [id number] bilateral neural foraminal stenosis -referral to spine surgery. Pt does not want to follow up w/ [facility] -pt does have referral to pain management by [facility] and is currently awaiting an appt -at this time I advised patient to follow up w/ pain management for control of her symptoms- I would continue acetaminophen 1000mg tid as needed. documented in this [id number] Evaluation + Plan note* Assessment & Plan Note - Liliya Lara MD - 08/15/2023 12:47 PM EDTAssociated Problem(s): Anxiety Continue lexapro 10mg daily Advised pt to follow up with counseling- but pt reports financial difficulties at this time -social work has reached out to pt to discuss options [id number] Evaluation + Plan note* Assessment & Plan Note - Liliya Lara MD - 08/15/2023 12:47 PM EDTAssociated Problem(s): Essential hypertension controlled [id number] Evaluation + Plan note* Assessment & Plan Note - Liliya Lara MD - 08/15/2023 12:46 PM EDTAssociated Problem(s): Restless leg requip prescribed [id number] Evaluation + Plan note* Assessment & Plan Note - Liliya Lara MD - 08/15/2023 12:31 PM EDTAssociated Problem(s): Chronic low back pain S/p lumbar [...] most pronounced at L4-L5 and L5-S1 with [id number] bilateral neural foraminal stenosis -referral to spine surgery. Pt does not want to follow up w/ [facility] -pt does have referral to pain management by [facility] and is currently awaiting an appt -at this time I advised patient to follow up w/ pain management for control of her symptoms- I would continue acetaminophen 1000mg tid as needed. [id number] History of Present illness Narrative* Ale Carrion, CHARLEY.TREASURY CONSULTANT - 08/09/2023 10:43 AM EDT Per Triage: Gricelda Norman is a 62 year old female that requests evaluation of lumbar spine. Per review, theyhave symptoms of Back pain, Leg pain bilateral, [...] No complication after surgery 05/06/2023 lumbar surgery [facility] [address], [place], [place] CMT: Gabapentin; PT for shoulder and hip [...] with Dr Brennan XR prior to appointment. * Ester Boswell N - 08/04/2023 3:44 PM EDT Patient name: Gricelda Norman Are you being referred by a [facility] or [facility] Management Provider at [facility]? No If answer is YES please schedule directly with surgeon, triage does not need to be completed. Is this a self-referral No If not, who is the Referring Provider Dr. Liliya Lara Is this a 2nd opinion? Yes Were you offered surgery? No complication after surgery MRI/CT/myelogram within 12 months? Yes If NO, please refer to medical spine or PCP to complete above imaging, triage does not need to be completed If YES, please ask for the name/address of the facility where the MRI/CT/myelogram was completed: MRI [address] [place] [address] AND [facility] [address] [facility] [address], [place] [address] AND [facility] [address] [place] [address] AND [facility] [address] [place] [address] MRI/CT/myelogram viewable in Epic: No If not, please provide [phone] to fax in imaging reports for review. Also, please inform patient to hand carry imaging disc to appointment. XR (spine) within 12 months: Yes If YES, please ask for the name/address of the facility where the XR was completed: [facility] [address] [place] [address] Dr. Danielle's patients: Have you had previous EMG/Nerve Conduction Study, Ultrasound, or MRI for thesesame symptoms? If YES, please ask for the [...] the surgery was completed: 05/06/2023 lumbar surgery [facility] [address] [facility] [address], [place] [address] Additional Comments [phone] [facility] History of Present illness Narrative* Liliya Lara MD - 08/01/2023 10:10 AM EDT Images from the original note were [...] most pronounced at L4-L5 and L5-S1 with iome-jb-rmefmdfl bilateral neural foraminal stenosis -referral to spine surgery. Pt does not want to follow up w/ [facility] -pt does have referral to pain management by [facility] and is currently awaiting an appt -at [...] effects of the medications. Liliya Lara MD [facility] [address] [facility] [address] [facility] [id number] Dept: [phone] Subjective Chief Complaint Patient presents with Follow-up 6 mon fu HPI Gricelda Norman is a 62 y.o. female with a past medical history of osteoarthritis, CADs/p PCI and CABG (SVG-OM1, ROSSA-OM2, SVG-OM3), bipolar disorder, DJD, hypertension, GERD, anxiety, osteoporosis,migraines presenting for back pain Patient surgery was [...] most pronounced at L4-L5 and L5-S1 with trwv-us-xpjixxot bilateral neural foraminal stenosis. X-ray lumbar spine June 24, 2023 by [facility] showed stable lumbar fixation and fusion for burst fracture extending to levels above 1 level below L1-L4. Moderate to significant stable lumbar disc degeneration at L4-L5 and L5- S1 known preoperatively. Has not followed up w/ [...] feels that her right leg is longer thanher left leg. She denies any gait instability,she denies any cauda equina symptoms. Patient has been taking acetaminophen and ibuprofen intermittently throughout the day but this doesnot alleviate her symptoms. She has been back [...] and it was discontinued. Patient is currently ontrazodone to 100 mg nightly. I do believe [...] elavil for migraine prophylaxsis but this did nothelp with acute anxiety. She has some xanax [...] artery bypass graft with unstable angina pectoris ([facility]) 10/05/2015 Bipolar disorder, most recent episode depressed ([facility]) 12/25/2020 Callus of foot interdigital on right foot CHF (congestive heart failure) ([facility]) Chronic prescription opiate use Circulation problem Controlled substance agreement signed Depression GERD (gastroesophageal reflux disease) Hair loss Heart disease Hyperlipidemia Hypertension Left hip pain 07/26/2022 Migraine 12/25/2020 Myocardial infarct ([facility]) PT STATES SHE HAS HAD 10 HEART ATTACKS FROM 1999 TO 2003 Painful orthopaedic hardware ([facility]) Left first MPJ Weight loss Past Surgical [...] Penicillins Iodine And Iodide Containing Products Unknown Bfcomvsm-Abwujfbgd-Bxrceyizmt rash and itching Adhesive Itching and Rash Plastic bandaids Ct: Iodinated Contrast- Oral And Iv Dye Unknown and Rash Neosporin (Jtw-Num-Qwqpq) [Mjapjrfj-Fzzeoanlwn-Kapqmdcub] Rash Ointment only Patient's Medications New Prescriptions ROPINIROLE (REQUIP) 0.5 MG TABLET Take 1 (one) tablet (0.5 mg total) by mouth nightly . TIZANIDINE (ZANAFLEX) 4 MG TABLET Take 1.5 (one and a half) tablets (6 mg total) by mouth 3 (three)times a day . TRIAMCINOLONE (KENALOG) 0.5 % [...] (one) tablet (10 mg total) by mouth daily. Discontinued Medications TIZANIDINE (ZANAFLEX) 6 MG CAPSULE Take 1 (one) capsule (6 mg total) by mouth 3 (three) times a dayas needed for muscle spasms . Objective Vitals: 09/18/23 0949 BP: 130/68 BP Location: Right arm Patient Position: Sitting BP Cuff Size: X-large Adult Pulse: (!) 49 Resp: 16 Temp: 98.5 F (36.9 C) TempSrc: Temporal SpO2: 95% Height: 5' 3.25 Estimated body mass index is 33.04 kg/m as calculated from the following: Height as of this encounter: 5' 3.25. Weight as of 05/04/23: 85.3 kg (188 [...] L hip flexion) present. Coordination: Coordination normal. Cnerdt-Xsxw-Uaxrhu Test and Heel to Hightower Test normal. Gait: Gait abnormal. Psychiatric: Mood and Affect: Mood is anxious. Affect is tearful. Behavior: Behavior is cooperative. PHQ9: PHOEBE-7 Tobacco Counseling: Counseling given: Not Answered Tobacco comments: QUIT IN 1999 documented in this [id number] History of Present illness Narrative* Liliya Lara MD - 06/25/2023 11:26 AM EDT Assessment Date: 06/25/23 Pain Type & Exclusions Type of Pain: Subacute/Chronic Do exclusions apply to your patient (select all that apply): No Exclusions Apply Called [facility] pharmacy to have pt bring back any norco tabs left that the pt has to discard -however pharmacy is unable to do that Pharmacist stated she would need to bring them to the physician's office - however we are now allowed to take medications back from pt's per VERENA. We also discussed pt taking medication to office support assistant's department to discard. Advise pharmacy that I would send in a short course of percocet for pt and I would let pt know [facility] the [facility] documented in this [id number] Evaluation + Plan note* Assessment & Plan Note - Liliya Lara MD - 06/21/2023 6:29 PM EDTAssociated Problem(s): Intractable back pain Advised pt to go to ER for imaging Advised pt to call after her discharge and we would develop plan for pain control until she sees orthopedics at the end of the month [id number] Miscellaneous Notes* Assessment & Plan Note - Liliya Lara MD - 06/21/2023 6:29 PM EDTAssociated Problem(s): Intractable back pain Advised pt to go to ER for imaging Advised pt to call after her discharge and we would develop plan for pain control until she sees orthopedics at the end of the month documented in this [id number] History of Present illness Narrative* Liliya Lara MD - 06/21/2023 5:11 PM EDT Images from the original note were not included. Assessment Assessment/Plan: Problem List Anxiety Relevant Medications ALPRAZolam (XANAX) 0.5 MG tablet CAD (coronary artery disease), [place] coronary artery Relevant Medications bumetanide (BUMEX) 1 [...] the medications. Liliya Lara MD [facility] [address] [facility] [address] [facility] [address] Dept: [phone] Subjective Chief Complaint Patient presents with Follow-up 6 week f/u on chronic conditions Gap Closure (Health Maintenance) Pap Smear Never done Mammogram due on 02/26/2017 COVID-19 Vaccine(4 - Pfizer series) due on 04/20/2022 HPI Gricelda Norman is a 62 y.o. female with a past medical history of osteoarthritis, CADs/p PCI and CABG (SVG-OM1, ROSAS-OM2, SVG-OM3), bipolar disorder, DJD, hypertension, GERD, anxiety, osteoporosis,migraines presenting for back pain Patient surgery was [...] her right leg is longer than her leftleg. She denies any gait instability,she denies any cauda equina symptoms. Patient has been taking acetaminophen and ibuprofen intermittently throughout the day but this doesnot alleviate her symptoms. She has been back to work For the last 2 weeks and she states that the pain was very intense yesterday that she had to lay down on the floor and she cannot work. Patient is very tearful in clinic and states that she is not sure what else to do. She states she called [facility] and they recommended PCP follow-up with pain management Advised the patient that this is more acute and if this is intractable back pain, I would advise patient to go to the ER for imaging Patient does state having pain management referral for July through [facility] Patient was amenable to going to the ER at [facility] ER was called and Kait TOLEDO was [...] artery bypass graft with unstable angina pectoris ([facility]) 10/05/2015 Bipolar disorder, most recent episode depressed ([facility]) 12/25/2020 Callus of foot interdigital on right foot CHF (congestive heart failure) ([facility]) Chronic prescription opiate use Circulation problem Controlled substance agreement signed Depression Hair loss Heart disease Hyperlipidemia Hypertension Left hip pain 07/26/2022 Migraine 12/25/2020 Myocardial infarct ([facility]) PT STATES SHE HAS HAD 10 HEART ATTACKS FROM 1999 TO 2003 Painful orthopaedic hardware ([facility]) Left first MPJ Weight loss Past Surgical [...] Penicillins Iodine And Iodide Containing Products Unknown Fhuezujv-Ciqgeydgw-Ktvrbodsxu rash and itching Adhesive Itching and Rash Plastic bandaids Ct: Iodinated Contrast- Oral And Iv Dye Unknown and Rash Neosporin (Udi-Kom-Aywxf) [Slaelcox-Iawntvvlxs-Fperpdhcq] Rash Ointment only Patient's Medications New Prescriptions [...] (one) tablet (10 mg total) by mouth daily. LAMOTRIGINE (LAMICTAL) 200 MG TABLET lamoTRIgine (LAMICTAL) [...] (one) tablet (40 mg total) by mouth daily. Discontinued Medications BACLOFEN (LIORESAL) 10 MG TABLET [...] following: Height as of this encounter: 5' 3.25. Weight as of 05/04/23: 85.3 kg (188 [...] L hip flexion) present. Coordination: Coordination normal. Yrvapu-Bxmk-Xspyde Test and Heel to Hightower Test normal. [...] let yourself or your family down 0 00 Trouble concentrating on things, such as reading [...] Not difficult at all documented in this [id number] History of Present illness Narrative* Sophie Andino MSW LSW - 05/31/2023 9:15 AM EDT SW follow up outreach this date. Reason [...] assist pt as needed. JENNIFER Gutierrez, KATINA [employer]er/ Care Management [facility] [phone] documented in this [id number] Emergency department Note* Laura Mosley RN - 05/16/2023 10:02 PM EDT RN went over discharge instructions with the patient, Patient was able to reinstruct RN with discharge care. Patient denies any questions. Patient is A&Ox3 at time of discharge. Laura Mosley RN 05/16/232202 [facility] Emergency department Note* Laura Mosley RN - 05/16/2023 10:02 PM EDT RN went over discharge instructions with the patient, Patient was able to reinstruct RN with discharge care. Patient denies any questions. Patient is A&Ox3 at time of discharge. Laura Mosley RN 05/16/232202 * Liz Powers LPN - 05/16/2023 8:11 PM EDT Pt given shawn blas per her request Liz Powers LPN 05/16/232011 * Liz Powers LPN - 05/16/2023 8:10 PM EDT Registration in with pt Liz Powers LPN 05/16/232009 * Liz Powers LPN - 05/16/2023 7:34 PM EDT Pt back from CT Liz Powers LPN 05/16/231933 * Laura Mosley RN - 05/16/2023 6:09 PM EDT [facility] EMERGENCY [facility]PT Quick Cognitive Screen Performed [...] once patient in room Laura Mosley RN 05/16/231808 * ASTON Reid - 05/16/2023 5:58 PM EDT Images from the original note were not included. LumbarEMERGENCY DEPARTMENT ENCOUNTER Pt Name: Gricelda Norman Birthdate 1960 Date of evaluation: 05/16/2023 [...] for the entirety of this encounter. HPI Gricelda Norman is a 62 y.o. female who presents to the emergency department complaining of severelow back pain. Patient does note that she had recent surgery on 05/06/[address] Fitzgerald. Patient reports that she has had severe pain in the area. States that she is able to ambulate and get aroundher house performing her ADLs. Reports having extreme [...] in discomfort. Patient does not appear to bein acute distress. HENT: Head: Normocephalic and atraumatic. [...] change. Report Dictated on Electronically Signed By: Bubba Byrd Electronically Signed Date/Time: 05/16/2023 7:48 PM [...] available as needed for collaboration. In brief, Gricelda Norman is a 62 y.o. female who presented to the emergency department complaining of low back pain after a lumbar surgery that occurred on 05/06/2023. See HPI for further details. Nursing notes and medical records reviewed, patient recently had surgery on 05/06/[address] Fitzgeraldfor lumbar spine. Differential considerations included surgical complication, [...] patients presentation include recent surgery by Dr. Fitzgerald on 05/06/2023. Social determinants to care: None [...] patient to follow-[facility] as [facility].Patient demonstrated understanding agree with this plan. Discussed ED return precautions, recommended consulting their primary doctor or returning to the EDif there are any new or worsening of symptoms, particularly redness, drainage from surgical site, fever. Follow-up PCP. Follow-up with [facility] as needed. PROCEDURES: Unless otherwise noted below, none Procedures FINAL IMPRESSION 1. S/P lumbar spine operation DISPOSITION Discharge 05/16/2023 09:40:01 PM PATIENT REFERRED TO: [facility] EMERGENCY DEPT [address] [place] [id number] DISCHARGE MEDICATIONS: New Prescriptions CALCITONIN, SALMON, [...] are any questions or concerns please feel freeto contact the dictating provider for clarification.) ASTON Reid (electronically signed) Emergency Medicine Provider ASTON Reid 05/16/232199 * Monalisa Burgos PA-C - 05/16/2023 5:58 PM EDT In the absence of the provider I prescribed patient Muscle relaxer and intranasal calcitonin per request of orthopedics. Monalisa Burgos PA-C 05/16/232138 documented in this [facility]07-03-2023 Hospital Discharge instructions* Discharge Instructions* Ela Hill MD - 05/16/2023 9:46 PM EDT Images from the original note were not included. Please follow-up with [facility] as needed. Follow-up with your PCP in [...] strenuous activity -Follow-up outpatient with Dr. Kennedy Fitzgerald. The office contact information is provided in your paperwork. -IF you experience SEVERE worsening of pain in short period of time and/or significant numbness/weakness in extremities or new loss of bowel or bladder function please call the office or return to the emergency department -Take medications as prescribed by the hospital doctors documented in this [facility]07-03-2023 Emergency department Note* Liz Powers LPN - 05/16/2023 8:11 PM EDT Pt given shawn odonnell per her request Liz Powers LPN 05/16/232011 [place] [id number] Emergency department Note* Liz Powers LPN - 05/16/2023 8:10 PM EDT Registration in with pt Liz Powers LPN 05/16/232009 [id number] Emergency department Note* Liz Powers LPN - 05/16/2023 7:34 PM EDT Pt back from CT Liz Powers LPN 05/16/231933 [id number] Emergency department Note* Laura Mosley RN - 05/16/2023 6:09 PM EDT [facility] Quick Cognitive Screen Performed [x] [...] in room Laura Mosley RN 05/16/23 180 [facility] HospitalQotvks05-78-1872 Physician Emergency department Note* ASTON Reid - 05/16/2023 5:58 PM EDT Images from the original note were not included. LumbarEMERGENCY DEPARTMENT ENCOUNTER Pt Name: Gricelda Norman Birthdate 1960 Date of evaluation: 05/16/2023 [...] for the entirety of this encounter. HPI Gricelda Norman is a 62 y.o. female who presents to the emergency department complaining of severelow back pain. Patient does note that she had recent surgery on 05/06/[address] Fitzgerald. Patient reports that she has had severe pain in the area. States that she is able to ambulate and get aroundher house performing her ADLs. Reports having extreme [...] in discomfort. Patient does not appear to bein acute distress. HENT: Head: Normocephalic and atraumatic. [...] with no erythema or purulent drainage noted. [place] in place. See photo. Skin: General: Skin [...] change. Report Dictated on Electronically Signed By: Bubba Byrd Electronically Signed Date/Time: 05/16/2023 7:48 PM [...] available as needed for collaboration. In brief, Gricelda Norman is a 62 y.o. female who presented to the emergency department complaining of low back pain after a lumbar surgery that occurred on 05/06/2023. See HPI for further details. Nursing notes and medical records reviewed, patient recently had surgery on 05/06/[address] Cannon lumbar spine. Differential considerations included surgical complication, [...] patients presentation include recent surgery by Dr. Fitzgerald on 05/06/2023. Social determinants to care: None [...] patient to follow-up [facility] as needed.Patient demonstrated understanding agree with this plan. Discussed ED return precautions, recommended consulting their primary doctor or returning to the EDif there are any new or worsening of symptoms, particularly redness, drainage from surgical site, fever. Follow-up PCP. Follow-up with [facility] as needed. PROCEDURES: Unless otherwise noted below, none Procedures FINAL IMPRESSION 1. S/P lumbar spine operation DISPOSITION Discharge 05/16/2023 09:40:01 PM PATIENT REFERRED TO: [facility] EMERGENCY DEPT [address] [place] [id number] DISCHARGE MEDICATIONS: New Prescriptions CALCITONIN, SALMON, [...] are any questions or concerns please feel freeto contact the dictating provider for clarification.) ASTON Reid (electronically signed) Emergency Medicine Provider ASTON Reid 05/16/232199 [facility] [id number] Physician Emergency department Note* Monalisa Burgos PA-C - 05/16/2023 5:58 PM EDT In the absence of the provider I prescribed patient Muscle relaxer and intranasal calcitonin per request of orthopedics. Monalisa Burgos PA-C 05/16/232138 [facility] HospitalKpqqag15-29-0860 Evaluation + Plan note* Assessment & Plan Note - Liliya Lara MD - 05/10/2023 6:49 AM EDTAssociated Problem(s): Anxiety Refill of medications [id number] Miscellaneous Notes* Assessment & Plan Note - Liliya Lara MD - 05/10/2023 6:49 AM EDTAssociated Problem(s): Anxiety Refill of medications * Assessment & Plan Note - Liliya Lara MD - 05/10/2023 6:48 AM EDTAssociated Problem(s): Preop exam for internal medicine Medically cleared for surgery documented in this [id number] Evaluation + Plan note* Assessment & Plan Note - Liliya Lara MD - 05/10/2023 6:48 AM EDTAssociated Problem(s): Preop exam for internal medicine Medically cleared for surgery [id number] History of Present illness Narrative* Liliya Lara MD - 05/04/2023 6:54 PM EDT Images from the original note [...] effects of the medications. Liliya Lara MD [facility] [address] [facility] [address] [facility] [address] Dept: [phone] Subjective Chief Complaint Patient presents with Pre-op Exam Surgery on 05/06/23 HPI Gricelda Norman is a 62 y.o. female Gricelda Norman is a 61 y.o. female with [...] Guidelines): Procedure: Posterior lumbar fusion Date:05/06/23 Surgeon-Dr. Fitzgerald-[facility] Revised Saini cardiac risk index (RCRI): -High-risk type of surgery- no (includes any intraperitoneal, intrathoracic, or suprainguinal vascular procedures) -History of ischemic heart disease- Yes history of DE or a positive exercise test, current complaint of chest pain considered to be secondary to myocardial ischemia, use of nitrate therapy, or ECG with pathological Q waves; do not count prior coronary revascularization procedure unless one of the other criteria for ischemic heart diseaseis present) -History of chronic heart failure No -History of cerebrovascular disease No -Diabetes mellitus requiring treatment with insulin No -Chronic Kidney Disease with preoperative serum creatinine >2.0 mg/dL (177 mol/L) No Risk of Major Adverse Cardiac Event (MACE - DE, Cardiac arrest or ) RCRI < 2 [...] bills as she has had 3 surgeries inthe last 8 months Would like to discuss [...] artery bypass graft with unstable angina pectoris ([facility]) 10/05/2015 Bipolar disorder, most recent episode depressed ([facility]) 12/25/2020 Callus of foot interdigital on right foot CHF (congestive heart failure) ([facility]) Chronic prescription opiate use Circulation problem Controlled substance agreement signed Depression Hair loss Heart disease Hyperlipidemia Hypertension Left hip pain 07/26/2022 Migraine 12/25/2020 Myocardial infarct ([facility]) PT STATES SHE HAS HAD 10 HEART [...] Penicillins Iodine And Iodide Containing Products Unknown Obulzyrz-Xbzhkerzg-Hcohetqzqy rash and itching Adhesive Itching and Rash Plastic bandaids Ct: Iodinated Contrast- Oral And Iv Dye Unknown and Rash Neosporin (Epb-Wkw-Fbcio) [Tuuplyvj-Dywcexdyio-Piwdcclpr] Rash Ointment only Patient's Medications New Prescriptions [...] (one) tablet (10 mg total) by mouth daily. Discontinued Medications No medications on file Objective Vitals: 05/04/23 1844 BP: 96/66 BP Location: Right arm Patient Position: Sitting BP Cuff Size: X-large Adult Pulse: 97 Resp: 16 Temp: 98.2 F (36.8 C) TempSrc: Infrared SpO2: 98% Weight: 85.3 kg (188 lb) Height: 5' 6 Estimated body mass index is 30.34 kg/m as calculated from the following: Height as of this encounter: 5' 6. Weight as of this encounter: 85.3 kg [...] comments: QUIT IN 1999 documented in this [id number] Instructions* Patient Instructions* Susan Buck APRN.CNP - 04/28/2023 10:24 AM EDT Ok to hold asa 81mg for 5-7 days if needed. [facility] History of Present illness Narrative* Susan Buck APRN.CNP - 04/28/2023 10:00 AM EDT PRIMARY CARE PHYSICIAN: Liliya Lara [address] [place] [address] Chief Complaint Patient presents with: Cardiology Follow Up : CAD, CHF HISTORY OF PRESENT ILLNESS: Ms. Norman is a 62 year old female who is known to Dr. Espino last seeing him in the office in October 2022, she also follows with Dr. Woo at [facility] when she was seen by for preoperative cardiovascular assessment for a left hip arthroplasty patient has a history of coronary artery disease status post coronary bypass graft surgery Patient is here today for cardiovascular assessment for a upcoming planned surgery at [facility] orthopedic surgery with Dr. Fitzgerald for a posterior lumbar fusion L2-4. Patient [...] on 02/04/2012 ([place]). Similar resting findings. 02/05/21: [facility]: Summary 1. Mildly enlarged left ventricular chamber. [...] focal disease. _ The mid circumflex - GOLF COURSE ASSISTANT and ISR. Additional Comment: - the LCx [...] the proximal OM1 with known occluded SVG-OM1; GOLF COURSE ASSISTANT of the mid LCx stent and patent ROSAS-OM2; SVG-OM3 graft is known to be occluded - RCA with mild luminal irregularities Recommended Treatment: Medical Therapy. 01/29/22: Patient Name: Gricelda Norman : 1960 Ordering Provider: Low Mohr [...] the proximal OM1 with known occluded SVG-OM1; GOLF COURSE ASSISTANT of the mid LCx stent and patent [...] symptoms of unstable angina, myocardial infarction, decompensated heartfailure, severe aortic stenosis, malignant arrhythmias. In addition, they can engage in at least 4 METS of physical activity without cardiac limitations. RCRI is __6.6__ percent.Patient is at_moderate____ cardiac risk for myocardial Infarction, Pulmonary Edema, Ventricular Fibrillation, Cardiac Arrest or Complete Heart Block and is medically optimized for the same. Cardiac risk reviewed in detailwith patient who voices understanding. A copy of [...] a monitor for serial review, she states darrell did have a pacemaker 5. Hyperlipidemia: On atorvastatin therapy Healthy diet structured exercise Susan Buck APRN.CNP Follow up planning: Call for questions or concerns. Return in 6 months Electronically signed by Susan Buck APRN.KATARINA The above note was partially created using a dictation recognition software. A reasonable attempt has been made to correct any errors. I spent >20 minutes in the visit, which included a review of the patients pertinent past medicalhistory, history of present health status, review of systems, assessment & planning, counseling, and further coordination of care. [facility]* Ronny Fermin LPN - 04/28/2023 9:47 AM EDT Pt has no cardiac complaints or symptoms [facility] Patient's home Progress note* Actions Primary Dx: Osteomyelitis of vertebra, lumbar region The patient was involved in a fall last summer which resulted in a spinal fracture and subsequent surgery 04/2023. She had continued pain which resulted in another surgery 01/2024 when 2 of the 4 surgical screws were removed because they were loose. An infection was found at that time. She is now receiving IV antibiotics from . PMH: HTN, CAD, CHF, falls. Living situation: by herself in a ranch style home w/ no AD w/ several steps to enter/exit. PLOF: Ind Narratives Homebound Status Criteria 1: Assistive Device(s): None Needs assistance of at least 1 to leave home Criteria 2: Patient confined to home due to limited ambulation related to pain and unsteady gait/poor balance Type of Home: 1-story house/ trailer, number of outside stairs: 3 Rehab potential: fair DC plans: to self when ind w/ transfers, ambulation, and steps to exit the home. documented in this encounter [id number] History of Present illness Narrative* Devin Patel LPN - 02/23/2023 12:04 PM EDT Attempted to call pt. No answer. VM left with office and contact information for a call back. * Liliya Lara MD - 02/23/2023 11:16 AM EDT Please advise patient medication was denied I would advise pt to use tylenol 500mg-1000mg tid as needed for pain Pt may supplement this with ibuprofen 200-400mg tid Cont to use ice packs as needed * Devin Patel LPN - 02/23/2023 11:13 AM EDT PA submitted as requested for Ketorolac 10mg tablets. PA was denied as pt must try and fail at least 2 covered medications. Please see scanned document for covered medication list. documented in this [id number] History of Present illness Narrative* Liliya Lara MD - 02/23/2023 11:16 AM EDT Please advise patient medication was denied I would advise pt to use tylenol 500mg-1000mg tid as needed for pain Pt may supplement this with ibuprofen 200-400mg tid Cont to use ice packs as needed * Devin Patel LPN - 02/23/2023 11:13 AM EDT PA submitted as requested for Ketorolac 10mg tablets. PA was denied as pt must try and fail at least 2 covered medications. Please see scanned document for covered medication list. documented in this [id number] Evaluation + Plan note* Assessment & Plan Note - Liliya Lara MD - 02/23/2023 7:56 AM EDTAssociated Problem(s): Lower extremity edema Advised pt to obtain BMP States lower ext edema has not improved Discussed elevating her legs and using compression stockings [id number] Miscellaneous Notes* Assessment & Plan Note - Liliya Lara MD - 02/23/2023 7:56 AM EDTAssociated Problem(s): Lower extremity edema Advised pt to obtain BMP States lower ext edema has not improved Discussed elevating her legs and using compression stockings * Assessment & Plan Note - Liliya Lara MD - 02/23/2023 7:55 AM EDTAssociated Problem(s): Rib pain Likely contusion Will order rib xrays as pt continues to complain of pain Advised pt to use ice packs as needed Analgesics recommended documented in this [id number] Evaluation + Plan note* Assessment & Plan Note - Liliya Lara MD - 02/23/2023 7:55 AM EDTAssociated Problem(s): Rib pain Likely contusion Will order rib xrays as pt continues to complain of pain Advised pt to use ice packs as needed Analgesics recommended [id number] History of Present illness Narrative* Liliya Lara MD - 02/23/2023 7:38 AM EDT Images from the original note were [...] the medications. Liliya Lara MD [facility] [address] [facility] [address] [facility] [address] Dept: [phone] Subjective Chief Complaint Patient presents with Transition Of Care Follow up - FALL HPI Gricelda Norman is a 62 y.o. female past [...] unable to sleep last night due to thediscomfort. she has not tried any additional analgesics but hsa been using ice. Pt is comfortable at rest Physical exam showed tenderness to palpation around areas of bruising on R/L lateral chest wall andsternum States her lower ext edema has worsened [...] artery bypass graft with unstable angina pectoris ([facility]) 10/05/2015 Bipolar disorder, most recent episode depressed ([facility]) 12/25/2020 Callus of foot interdigital on right foot CHF (congestive heart failure) ([facility]) Chronic prescription opiate use Circulation problem Controlled substance agreement signed Depression Hair loss Heart disease Hyperlipidemia Hypertension Left hip pain 07/26/2022 Migraine 12/25/2020 Myocardial infarct ([facility]) PT STATES SHE HAS HAD 10 HEART ATTACKS FROM 1999 TO 2003 Painful orthopaedic hardware ([facility]) Left first MPJ Weight loss Past Surgical [...] Penicillins Iodine And Iodide Containing Products Unknown Rlcdsyow-Lcqqbibde-Fxkmogrekl rash and itching Adhesive Itching and Rash Plastic bandaids Ct: Iodinated Contrast- Oral And Iv Dye Unknown and Rash Neosporin (Qcu-Yek-Vogzg) [Nzgfdosd-Kxzfeoayxg-Antinatcn] Rash Ointment only Patient's Medications New Prescriptions [...] following: Height as of this encounter: 5' 6. Weight as of 02/01/23: 82.5 kg (181 [...] comments: QUIT IN 1999 documented in this [id number] History of Present illness Narrative* KATINA Quinones REFUGE WORKER-S - 02/17/2023 10:40 AM EDT [facility] reached out to patient in 3rd attempt regarding BH referral placed by PCP. [facility] left message including contact information with request for a return call. This is the final attempt. documented in this [id number] Instructions* Patient Instructions* Liliya Lara MD - 01/26/2023 12:58 PM EDT Problem List Items Addressed This Visit Endocrine Impaired glucose tolerance in obese Will get ha1c Relevant Orders Hemoglobin A1c Cardiovascular and Mediastinum CAD (coronary artery disease), [place] coronary artery Refill on medications Relevant Medications [...] of Abuse Screen, Urine Ambulatory Ref to [facility] Public Relations Specialist Bipolar disorder, most recent episode depressed (HCC) [...] Relevant Orders Ambulatory Ref to [place] [facility] Public Relations Specialist Vitamin D deficiency Relevant Orders Vitamin D, [...] Most normal results will be available through [facility] however if abnormal, you will be notified. [...] look into their status. Customer Service/Billing Questions: [phone] [facility] Assistance: [phone] or [phone] Financial Assistance: [phone] or [phone] documented in this [id number] Evaluation + Plan note* Assessment & Plan Note - Liliya Lara MD - 01/26/2023 12:56 PM EDTAssociated Problem(s): Low vitamin D level We will get updated vitamin D level [id number] Evaluation + Plan note* Assessment & Plan Note - Liliya Lara MD - 01/26/2023 12:56 PM EDTAssociated Problem(s): Bipolar disorder, most recent episode depressed (HCC) Continue with Lamictal 200 mg daily Lexapro did not help with her symptoms We will start Effexor today Psychiatry referral placed [id number] Miscellaneous Notes* Assessment & Plan Note - Liliya Lara MD - 01/26/2023 12:56 PM EDTAssociated Problem(s): Low vitamin D level We will get updated vitamin D level * Assessment & Plan Note - Liliya Lara MD - 01/26/2023 12:56 PM EDTAssociated Problem(s): Bipolar disorder, most recent episode depressed (HCC) Continue with Lamictal 200 mg daily Lexapro did not help with her symptoms We will start Effexor today Psychiatry referral placed * Assessment & Plan Note - Liliya Lara MD - 01/17/2023 7:29 PM ESTAssociated Problem(s): Chronic heart failure with preserved ejection fraction (HCC) Advised pt to increase bumex- start taking 1mg in AM and 0.5mg pm She was only taking 0.5mg nightly because she did not want this to interfere with work -advised pt to complete labs in the next few days * Assessment & Plan Note - Liliya Lara MD - 01/17/2023 7:27 PM ESTAssociated Problem(s): Migraine Has been using acetaminophen- ineffective Was previously using imitrex nurtec and ubrevly were quite costly- approx 200-300 out of pocket despite insurance coverage Was on gabapentin- this did not help Elavil was ineffective Will start effexor 37.5 mg daily X 7 days then increase to twice daily If sx do not improve, will place neurology referral * Assessment & Plan Note - Liliya Lara MD - 01/17/2023 7:27 PM ESTAssociated Problem(s): Impaired glucose tolerance in obese Will get ha1c * Assessment & Plan Note - Liliya Lara MD - 01/17/2023 7:26 PM ESTAssociated Problem(s): CAD (coronary artery disease), [place] coronary artery Refill on medications * Assessment & Plan Note - Liliya Lara MD - 01/17/2023 7:24 PM ESTAssociated Problem(s): Anxiety Cont w/ lamictal discontinued lexapro 10mg- previously was helping pt was now states it has not helped w/ the anxiety Discontinued hydroxyzine-ineffective buspar had side effects Was on elavil and gabapentin for pain and migraines- did not help w/ anxiety symptoms Will start effexor Short course of xanax prescribed - advised patient I would not continue this skilled nursing BH referral placed for medication management * Assessment & Plan Note - Liliya Lara MD - 01/17/2023 7:23 PM ESTAssociated Problem(s): Insomnia Refill on trazodone Discontinue elavil Will start effexor- advised pt I would like her anxiety controlled which I believe is contributing to her symptoms Do not take xanax to help w/ insomnia documented in this [id number] Evaluation + Plan note* Assessment & Plan Note - Liliya Lara MD - 01/17/2023 7:29 PM ESTAssociated Problem(s): Chronic heart failure with preserved ejection fraction (HCC) Advised pt to increase bumex- start taking 1mg in AM and 0.5mg pm She was only taking 0.5mg nightly because she did not want this to interfere with work -advised pt to complete labs in the next few days [id number] Evaluation + Plan note* Assessment & Plan Note - Liliya Lara MD - 01/17/2023 7:27 PM ESTAssociated Problem(s): Migraine Has been using acetaminophen- ineffective Was previously using imitrex nurtec and ubrevly were quite costly- approx 200-300 out of pocket despite insurance coverage Was on gabapentin- this did not help Elavil was ineffective Will start effexor 37.5 mg daily X 7 days then increase to twice daily If sx do not improve, will place neurology referral [id number] Evaluation + Plan note* Assessment & Plan Note - Liliya Lara MD - 01/17/2023 7:27 PM ESTAssociated Problem(s): Impaired glucose tolerance in obese Will get ha1c [id number] Evaluation + Plan note* Assessment & Plan Note - Liliya Lara MD - 01/17/2023 7:26 PM ESTAssociated Problem(s): CAD (coronary artery disease), [place] coronary artery Refill on medications [id number] Evaluation + Plan note* Assessment & Plan Note - Liliya Lara MD - 01/17/2023 7:24 PM ESTAssociated Problem(s): Anxiety Cont w/ lamictal discontinued lexapro 10mg- previously was helping pt was now states it has not helped w/ the anxiety Discontinued hydroxyzine-ineffective buspar had side effects Was on elavil and gabapentin for pain and migraines- did not help w/ anxiety symptoms Will start effexor Short course of xanax prescribed - advised patient I would not 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 She had appointment with gary rush, 01/17/23. [id number] Miscellaneous Notes* Telephone Encounter - Valery Bradford LPN - 01/17/2023 6:38 PM EST Pt requesting refill, she needs this sent to local pharmacy. She had appointment with gary rush, 01/17/23. documented in this [id number] History of Present illness Narrative* Liliya Lara MD - 01/17/2023 6:33 PM EST Images from the original note were not [...] I would not continue this skilled nursing BH referral placed for medication management Relevant Medications ALPRAZolam (XANAX) 0.5 MG tablet Other Relevant Orders Ambulatory referral to [facility]SH with Reflex Free T4 Hemoglobin A1c Drugs of Abuse Screen, Urine Ambulatory Ref to [facility] Public Relations Specialist Bipolar disorder, most recent episode depressed (HCC) Continue with Lamictal 200 mg daily Lexapro did not help with her symptoms We will start Effexor today Psychiatry referral placed Relevant Medications traZODone (DESYREL) 100 MG tablet ALPRAZolam (XANAX) 0.5 MG tablet venlafaxine (EFFEXOR) 37.5 MG tablet Other Relevant Orders Ambulatory referral to [facility] CAD (coronary artery disease), [place] coronary artery Refill on medications Relevant Medications [...] tablet Other Relevant Orders Ambulatory Ref to [facility] Public Relations Specialist Migraine Has been using acetaminophen- ineffective Was [...] the medications. Liliya Lara MD [facility] [address] [facility] [address] [facility] [address] Dept: [phone] Subjective Chief Complaint Patient presents with Insomnia HPI Gricelda Norman is a 62 y.o. female past [...] Uncontrolled sx w/ axniety and insomnia. We willstart Effexor we will start Effexor today. We [...] Was on lexapro 10mg prior to surgery. [place] like this did not help with anxiety symptoms She does not feel like hydroxyzine helps. Buspar caused side effects. She was taking gabapentin for pain and elavil for migraine prophylaxsis but this did not help with acute anxiety. She has some xanax that she will use to help her sleep at night. Sheis requesting refill. Advised pt I would not want to cont this termite inspector as it is not the best medication for anxiety or for insomnia. We discussed referral to psychiatry for management. She states out of pocket cost has prevented herin the past from seeing counseling- advised patient [...] Penicillins Iodine And Iodide Containing Products Unknown Nynaiupx-Iifmtdive-Ehuvseqwqx rash and itching Adhesive Itching and Rash Plastic bandaids Ct: Iodinated Contrast- Oral And Iv Dye Unknown and Rash Neosporin (Qsp-Qhz-Nmibw) [Ivkqcide-Scwdmmbwdi-Zsxvhqbyb] Rash Ointment only Patient's Medications New Prescriptions [...] (one) tablet (30 mg total) by mouth daily. PANTOPRAZOLE (PROTONIX) 40 MG TABLET pantoprazole (PROTONIX) 40 MG tablet Take 1 (one) tablet (40 mg total) by mouth daily . Take 1 (one) tablet (40 mg total) by mouth daily. TRAZODONE (DESYREL) 100 MG TABLET traZODone (DESYREL) 100 MG tablet Take 2 (two) tablets (200 mg total) by mouth nightly . Take 2 (two) tablets (200 mg total) by mouthnightly . Discontinued Medications AMITRIPTYLINE (ELAVIL) 10 MG [...] following: Height as of this encounter: 5' 6. Weight as of this encounter: 81.6 kg [...] comments: QUIT IN 1999 documented in this [id number] History of Present illness Narrative* Guevara Espino MD - 11/03/2022 9:40 AM EST Images from the original note were not included. PRIMARY CARE PHYSICIAN: Aubrey Malone NP [address] [place] [address] HISTORY OF PRESENT ILLNESS: Ms. Norman is [...] she is now contemplating left hip arthroplasty. Gricelda denies any other active cardiac symptoms. Specifically, [...] on 02/04/2012 ([facility]). Similar resting findings. 02/05/21: [facility]: Summary 1. Mildly enlarged left ventricular chamber. [...] focal disease. _ The mid circumflex - GOLF COURSE ASSISTANT and ISR. Additional Comment: - the LCx [...] the proximal OM1 with known occluded SVG-OM1; GOLF COURSE ASSISTANT of the mid LCx stent and patent ROSAS-OM2; SVG-OM3 graft is known to be occluded - RCA with mild luminal irregularities Recommended Treatment: Medical Therapy. 09/13/2006: [facility]-: Summary 45 year-old female with known CAD [...] is to continue medical therapy. Recommendations : [employer] Holter / Event Recorder : 01/29/22: Patient Name: Gricelda Norman : 1960 Ordering Provider: Low Mohr [...] antegrade flow noted. Technologist: Romario Guerra RVT, RDAK Ordering physician: SELENE WOO Interpreting physician: Joyce [...] abdominal pain, nausea, vomiting, difficulty or painful swallowing,and melanotic stools GENITOURINARY: negative for: dysuria, frequency, [...] bruits, carotids have a normal upstroke, no palpablethyromegaly. Lungs: Clear to auscultation bilaterally, no wheezing [...] mg daily. This should be continued Last EK/21/22: Sinus bradycardia, otherwise normal tracing. Metabolic: Current metabolic data is not available 11/03/22 Cardiology will remain available during the perioperative stages. Please do not hesitate to call ifthe need arises PLAN AND RECOMMENDATIONS: Follow-up with general cardiology 6 months. She wishes to be followed at our [place] location, we willacquiesce. documented [facility]12[facility] Nurse Note* Joan Corey MA - 11/03/2022 9:31 AM EST Patient has no cardiac complaints today. Joan Corey CMA documented in this [facility]12-21-2022 Miscellaneous Notes* Telephone Encounter - Shahbaz Garcia - 11/03/2022 9:07 AM ESTSummary: records in opd file Received 2 pages from [facility] documented in this [facility]12-13-[facility]22 Instructions* Patient Instructions* Liliya Lara MD - 10/26/2022 11:53 AM EST Problem List Items Addressed This Visit Cardiovascular and Mediastinum CAD (coronary artery disease), [place] coronary artery Refill on medications Relevant Medications [...] Most normal results will be available through [facility] however if abnormal, you will be notified. [...] look into their status. Customer Service/Billing Questions: [phone] [email or web address] Assistance: [phone] or [phone] Financial Assistance: [phone] or [phone] documented in this [id number] Evaluation + Plan note* Assessment & Plan Note - Liliya Lara MD - 10/26/2022 11:51 AM ESTAssociated Problem(s): Migraine Has been using imitrex despite being discontinued due to underlying heart disease. she also states that this did not control her symptoms nurtec and ubrevly were quite costly- approx 200-300 out of pocket despite insurance coverage Was on gabapentin- this did not help Was prescribed elavil for prophylaxis advised pt to start taking this nightly [id number] Miscellaneous Notes* Assessment & Plan Note - Liliya Lara MD - 10/26/2022 11:51 AM ESTAssociated Problem(s): Migraine Has been using imitrex despite being discontinued due to underlying heart disease. she also states that this did not control her symptoms nurtec and ubrevly were quite costly- approx 200-300 out of pocket despite insurance coverage Was on gabapentin- this did not help Was prescribed elavil for prophylaxis advised pt to start taking this nightly * Assessment & Plan Note - Liliya Lara MD - 10/26/2022 11:09 AM ESTAssociated Problem(s): CAD (coronary artery disease), [place] coronary artery Refill on medications * Assessment & Plan Note - Liliya Lara MD - 10/26/2022 11:09 AM ESTAssociated Problem(s): Preop exam for internal medicine Medically cleared for surgery * Assessment & Plan Note - Liliya Lara MD - 10/26/2022 11:09 AM ESTAssociated Problem(s): Insomnia Refill on trazodone Advised pt to take elavil 10mg nightly documented in this [id number] History of Present illness Narrative* Thania Espana MA - 10/26/2022 11:12 AM EST Patient requested to be scheduled in Dec 2022 * Liliya Lara MD - 10/26/2022 10:40 AM EST Images from the original note were not included. Assessment Assessment/Plan: Problem List CAD (coronary artery disease), [place] coronary artery Refill on medications Relevant Medications [...] the medications. Liliya Lara MD [facility] [address] [facility] [address] [facility] [address] Dept: [phone] Subjective Chief Complaint Patient presents with Follow-up 8 week fu CC HPI Gricelda Norman is a 61 y.o. female with a past medical history of osteoarthritis, CADs/p PCI and CABG (SVG-OM1, ROSAS-OM2, SVG-OM3), bipolar disorder, DJD, hypertension, GERD, anxiety, osteoporosis,migraines presenting for preoperative clearance. She is status [...] of ischemic heart disease- Yes history of DE or a positive exercise test, current complaint of chest pain considered to be secondary to myocardial ischemia, use of nitrate therapy, or ECG with pathological Q waves; do not count prior coronary revascularization procedure unless one of the other criteria for ischemic heart diseaseis present) -History of chronic heart failure No -History of cerebrovascular disease No -Diabetes mellitus requiring treatment with insulin No -Chronic Kidney Disease with preoperative serum creatinine >2.0 mg/dL (177 mol/L) No Risk of Major Adverse Cardiac Event (MACE - DE, Cardiac arrest or ) RCRI < 2 = MACE <1%, low risk RCRI = 2 = MACE = 1%, elevated-risk RCRI < 2 but high risk surgery = elevated-risk Physical Performance: Minimal Metabolic Equivalent of Task (MET) level at 4: due to pain and decreased ROM, as well as ptbeing s/p surgical intervention with Left shoulder arthoplasty, she is slowly recovering. She is able to walk >2 blocks without stopping, She is able to climb down stairs albeit slowly. Assessment and Plan: The patient's risk of Major Adverse Cardiac Events (MACE) perioperatively is low based on RCRI and AHA/ACC guidelines. 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 EKG was not ordered by [...] events with this medication. She was precribed nurtec in the past which was approved but [...] 10/05/2015 Bipolar disorder, most recent episode depressed ([facility]) 12/25/2020 Callus of foot interdigital on right [...] Penicillins Iodine And Iodide Containing Products Unknown Eaogptaw-Ugmjdbdhl-Hqhyukfotp rash and itching Adhesive Itching and Rash Plastic bandaids Ct: Iodinated Contrast- Oral And Iv Dye Unknown and Rash Neosporin (Omr-Mob-Lnapl) [Xbltukbf-Yewttjnygj-Cwuoggozu] Rash Ointment only Patient's Medications New Prescriptions [...] (one) tablet (80 mg total) by mouth daily. BUMETANIDE (BUMEX) 1 MG TABLET bumetanide (BUMEX) [...] (one) tablet (30 mg total) by mouth daily. LAMOTRIGINE (LAMICTAL) 200 MG TABLET lamoTRIgine (LAMICTAL) [...] (one) tablet (40 mg total) by mouth daily. TRAZODONE (DESYREL) 100 MG TABLET traZODone (DESYREL) 100 MG tablet Take 2 (two) tablets (200 mg total) by mouth nightly . Take 2 (two) tablets (200 mg total) by mouthnightly . Discontinued Medications AMITRIPTYLINE (ELAVIL) 10 MG [...] following: Height as of this encounter: 5' 6. Weight as of this encounter: 77.1 kg [...] Decreased range of motion. Decreased strength. Comments: Vinay test + on left hip Decreased strength [...] comments: QUIT IN 1999 documented in this [id number] Evaluation + Plan note* Assessment & Plan Note - Liliya Lara MD - 10/26/2022 11:09 AM ESTAssociated Problem(s): CAD (coronary artery disease), [place] coronary artery Refill on medications [id number] Evaluation + Plan note* Assessment & Plan Note - Liliya Lara MD - 10/26/2022 11:09 AM ESTAssociated Problem(s): Preop exam for internal medicine Medically cleared for surgery [id number] Evaluation + Plan note* Assessment & Plan Note - Liliya Lara MD - 10/26/2022 11:09 AM ESTAssociated Problem(s): Insomnia Refill on trazodone Advised pt to take elavil 10mg nightly [id number] Miscellaneous Notes* Telephone Encounter - Elli Crow RN - 10/25/2022 4:06 PM EST Spoke to Dr Wagner. He will need to see patient in order to sign cardiac clearance forms as she was to follow up in 6 months from [facility]. Was due to be seen in June 2022. Does appear patient has an appt on 11/03/[address] Espino for Cardiac Clearance. Elli Crow RN * Telephone Encounter - Shahbaz Garcia - 10/25/2022 9:20 AM ESTSummary: OG in opd file Images from the original note were not included. [facility] Nurse Note* Yolanda Patterson MA - 08/12/2022 10:05 AM EDT NO CARDIAC COMPLAINTS TODAY documented in this encounterT[facility]09-[facility]22 History of Present illness Narrative* Guevara Espino MD - 08/12/2022 10:00 AM EDT Images from the original note were not included. PRIMARY CARE PHYSICIAN: Aubrey Malone NP [address] [place] [address] HISTORY OF PRESENT ILLNESS: Ms. Norman is [...] contemplating having multiple orthopedic surgeries at the [facility]. The patient has nocoronary artery disease history of stenting and subsequent bypass grafting. Early this year she experiences interscapular pain. Her work-up was negative she still Dr. Woo at [facility]. Patient underwent diagnostic angiography which confirmed occlusion of 2 grafts patent ROSAS to the last obtuse marginal branch. All major coronary trunks were patent and with minimal luminal irregularities. That she was maintained on medical therapy. The patient has had no recurrent anginal symptoms nor symptoms to suggest ischemia or malignant arrhythmias.. Gricelda denies any other active cardiac symptoms. HISTORICAL [...] on 02/04/2012 ([place]). Similar resting findings. 02/05/21: [facility]: Summary 1. Mildly enlarged left ventricular chamber. [...] focal disease. _ The mid circumflex - GOLF COURSE ASSISTANT and ISR. Additional Comment: - the LCx [...] the proximal OM1 with known occluded SVG-OM1; GOLF COURSE ASSISTANT of the mid LCx stent and patent ROSAS-OM2; SVG-OM3 graft is known to be occluded - RCA with mild luminal irregularities Recommended Treatment: Medical Therapy. 09/13/2006: [facility]-: Summary 45 year-old female with known CAD [...] is to continue medical therapy. Recommendations : [employer] Holter / Event Recorder : 01/29/22: Patient Name: Gricelda Norman : 1960 Ordering Provider: Low Mohr [...] antegrade flow noted. Technologist: Romario Guerra RVT, [facility] Ordering physician: SELENE WOO Interpreting physician: Joyec Ley MD, RVT, RPVI PAST CARDIAC/VASCULAR EVENTS: [...] Negative for: Weakness, Paralysis, Numbness, Tingling, Tremor, Nervousness,Depressed mood, Memory loss SKIN: Negative for: Rashes, Itching HEMATOLOGICAL/LYMPHATIC: Negative for: Easy bruising , Easy bleeding ENDOCRINE: Negative for: Heat or cold intolerance, Excessive sweating, Frequent urination, Frequentthirst PHYSICAL EXAMINATION: BP 113/76 Pulse 57 Ht 5' 6 (1.68m) Wt 175 lb (79.4kg) SpO2 97% BMI 28.26 kg/(m^2). General: Well appearing, in no acute distress. Skin: No clubbing, no cyanosis. Eyes: Extra ocular movements intact Oropharynx: Teeth in good repair. Neck: No jugular venous distention, no carotid bruits, carotids have a normal upstroke, no palpablethyromegaly. Lungs: Clear to auscultation bilaterally, no wheezing [...] of the time was spent in direct, uqsq-rm-kcaz, contact with the patient for management and counseling. Guevara Espino M.D. [facility] This note was partially generated using [employer] voice recognition system, and there may be some incorrect words, spellings, and punctuation that were not noted in checking the note before saving. documented in this encounterT[facility] City Hospital09-12-2022 Instructions* Patient Instructions* Liliya Lara MD - 07/26/2022 1:53 PM [...] end of the month antalagic gait, + vinay test Tramadol ineffective Will prescribe percocet If [...] Most normal results will be available through [facility] however if abnormal, you will be notified. [...] look into their status. Customer Service/Billing Questions: [phone] [facility] Assistance: [phone] or [phone] Financial Assistance: [phone] or [phone] documented in this [id number] Evaluation + Plan note* Assessment & Plan Note - Liliya Lara MD - 07/26/2022 1:48 PM EDTAssociated Problem(s): Essential hypertension No changes to treatment Sx well controlled [id number] Miscellaneous Notes* Assessment & Plan Note - Liliya Lara MD - 07/26/2022 1:48 PM EDTAssociated Problem(s): Essential hypertension No changes to treatment Sx well controlled * Assessment & Plan Note - Liliya Lara MD - 07/26/2022 1:46 PM EDTAssociated Problem(s): Bipolar disorder, most recent episode depressed (HCC) Cont w/ lamictal Increase lexapro to 10mg daily- states this has been helping She does not feel like hydroxyzine has been helping * Assessment & Plan Note - Liliya Lara MD - 07/26/2022 1:28 PM EDTAssociated Problem(s): Left hip pain Acute on chronic pain Has appt w/ orthopedic at the end of the month antalagic gait, + vinay test Tramadol ineffective Will prescribe percocet * Assessment & Plan Note - Liliya Lara MD - 07/21/2022 4:47 PM EDTAssociated Problem(s): Bilateral shoulder bursitis Hx of steroid injections bilaterally Has worsening left shoulder pain 2/2 to mechanical trauma Decreased ROM- unable to lift shoulder > 90 degrees Gabapentin has been ineffective Pt declined physical therapy - has appt w/ orthopedics at the end of the month as well as pain management documented in this [id number] Evaluation + Plan note* Assessment & Plan Note - Liliya Lara MD - 07/26/2022 1:46 PM EDTAssociated Problem(s): Bipolar disorder, most recent episode depressed (HCC) Cont w/ lamictal Increase lexapro to 10mg daily- states this has been helping She does not feel like hydroxyzine has been helping [id number] Evaluation + Plan note* Assessment & Plan Note - Liliya Lara MD - 07/26/2022 1:28 PM EDTAssociated Problem(s): Left hip pain Acute on chronic pain Has appt w/ orthopedic at the end of the month antalagic gait, + vinay test Tramadol ineffective Will prescribe percocet [id number] Evaluation + Plan note* Assessment & Plan Note - Liliya Lara MD - 07/21/2022 4:47 PM EDTAssociated Problem(s): Bilateral shoulder bursitis Hx of steroid injections bilaterally Has worsening left shoulder pain 2/2 to mechanical trauma Decreased ROM- unable to lift shoulder > 90 degrees Gabapentin has been ineffective Pt declined physical therapy - has appt w/ orthopedics at the end of the month as well as pain management [id number] History of Present illness Narrative* Liliya Lara MD - 07/21/2022 4:45 PM EDT Assessment Assessment/Plan: Problem List Bipolar disorder, most [...] end of the month antalagic gait, + vinay test Tramadol ineffective Will prescribe percocet Return in about 6 weeks (around 09/01/2022) for Follow up Chronic Conditions. For any new medications prescribed today, patient was educated about indications for the medication, how to take the medication and potential side effects of the medications. Liliya Lara MD [facility] [address] [place] [id number] Dept: [phone] Subjective Chief Complaint Patient presents with Follow-up 3 month f/u HPI Gricelda Norman is a 61 y.o. female past [...] to the area an redness. She also hasthe same wound on her right forearm (when [...] know I have to get surgery on this. She states she has an appt w/ orthopedics at the end of the month. Pain is 8/10 and radiates into her groin. She has pain with walking and climbing steps- states if she stands still, there is no pain. No inflammation, erythema or tenderness. No acute trauma per patient. She has been taking tramadol which hasbeen ineffective. All pertinent positives and negatives are documented in ROS Patient's medications, allergies, past medical history, surgical history history, family history, social history were reviewed. Spent more than 35 minutes with patient, coordinating patient care, including reviewing charts and counseling patient. 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 ([facility]) 10/05/2015 Bipolar disorder, most recent episode depressed ([facility]) 12/25/2020 Callus of foot interdigital on right foot Chronic prescription opiate use Circulation problem Controlled substance agreement signed Depression Hair loss Heart disease Hyperlipidemia Hypertension Left hip pain 07/26/2022 Migraine 12/25/2020 Myocardial infarct ([facility]) PT STATES SHE HAS HAD 10 HEART ATTACKS FROM 1999 TO 2003 Painful orthopaedic hardware ([facility]) Left first MPJ Weight loss Past Surgical [...] Penicillins Iodine And Iodide Containing Products Unknown Hxfrhtwy-Yibivsxrs-Jthfsvknil rash and itching Adhesive Itching and Rash Plastic bandaids Ct: Iodinated Contrast- Oral And Iv Dye Unknown and Rash Neosporin (Wsf-Wfq-Wbbxz) [Nvlpwqqt-Cnrbgiwkne-Wytxahqgt] Rash Ointment only Patient's Medications New Prescriptions [...] (one) tablet (5 mg total) by mouth daily. Discontinued Medications GABAPENTIN (NEURONTIN) 300 MG CAPSULE [...] following: Height as of this encounter: 5' 6. Weight as of this encounter: 77.1 kg [...] Left hip: Decreased range of motion. Comments: Vinay test + on left hip Decreased strength [...] comments: QUIT IN 1999 documented in this [id number] Telephone encounter Note* Telephone Encounter - Fouzia Mary MA - 06/29/2022 1:09 PM EDT RECEIVED FAX FROM PHARMACY. REQUESTING REFILL ON QUEUED MEDICATION(S). LAST OV:06/22/2022 NEXT OV:07/21/2022 [id number] Miscellaneous Notes* Telephone Encounter - Fouzia Mary MA - 06/29/2022 1:09 PM EDT RECEIVED FAX FROM PHARMACY. REQUESTING REFILL ON QUEUED MEDICATION(S). LAST OV:06/22/2022 NEXT OV:07/21/2022 documented in this [id number] Instructions* Patient Instructions* Liliya Lara MD - 06/25/2022 11:46 PM EDT Problem List Items Addressed This Visit Cardiovascular and Mediastinum CAD (coronary artery disease), [place] coronary artery Relevant Orders Lipid Panel TSH [...] given hand out w/ counseling centers in [place] and encouraged to reach out Relevant Medications [...] Most normal results will be available through [facility] however if abnormal, you will be notified. [...] look into their status. Customer Service/Billing Questions: [phone] [facility] Assistance: [phone] or [phone] Financial Assistance: [phone] or [phone] documented in this [id number] Evaluation + Plan note* Assessment & Plan Note - Liliya Lara MD - 06/25/2022 11:42 PM EDTAssociated Problem(s): Bipolar disorder, most recent episode depressed (HCC) Acute increase in anxiety symptoms She is compliant w/ lamictal 200mg daily Start lexapro and hydroxyzine -she has previous prescription of xanax which she uses sparingly Pt given hand out w/ counseling centers in [place] and encouraged to reach out [id number] Miscellaneous Notes* Assessment & Plan Note - Liliya Lara MD - 06/25/2022 11:42 PM EDTAssociated Problem(s): Bipolar disorder, most recent episode depressed (HCC) Acute increase in anxiety symptoms She is compliant w/ lamictal 200mg daily Start lexapro and hydroxyzine -she has previous prescription of xanax which she uses sparingly Pt given hand out w/ counseling centers in [place] and encouraged to reach out * Assessment & Plan Note - Liliya Lara MD - 06/25/2022 11:41 PM EDTAssociated Problem(s): Bilateral shoulder bursitis Hx of steroid injections bilaterally Has worsening left shoulder pain 2/2 to mechanical trauma -increase gabapentin to 300mg bid -advised pt to obtain xrays -consider pain management referral as pt states tramadol has not been helping for any of her pain in her shoulders/hips/knees * Assessment & Plan Note - Liliya Lara MD - 06/25/2022 11:40 PM EDTAssociated Problem(s): Anxiety Currently on lamictal for bipolar disorder Start hydroxyzine nightly and increase as tolerated Start lexapro 5mg Advised pt to follow up with counseling services documented in this [id number] Evaluation + Plan note* Assessment & Plan Note - Liliya Lara MD - 06/25/2022 11:41 PM EDTAssociated Problem(s): Bilateral shoulder bursitis Hx of steroid injections bilaterally Has worsening left shoulder pain 2/2 to mechanical trauma -increase gabapentin to 300mg bid -advised pt to obtain xrays -consider pain management referral as pt states tramadol has not been helping for any of her pain in her shoulders/hips/knees [id number] Evaluation + Plan note* Assessment & Plan Note - Liliya Lara MD - 06/25/2022 11:40 PM EDTAssociated Problem(s): Anxiety Currently on lamictal for bipolar disorder Start hydroxyzine nightly and increase as tolerated Start lexapro 5mg Advised pt to follow up with counseling services [id number] History of Present illness Narrative* Liliya Lara MD - 06/22/2022 7:01 AM EDT Assessment Assessment/Plan: Problem List Anxiety - Primary [...] given hand out w/ counseling centers in [place] and encouraged to reach out Relevant Medications escitalopram oxalate (LEXAPRO) 5 MG tablet CAD (coronary artery disease), [place] coronary artery Relevant Orders Lipid Panel TSH [...] the medications. Liliya Lara MD [facility] [address] [facility] [address] [facility] [phone] Dept: [phone] Subjective Chief Complaint Patient presents with Follow-up 4 week fu, left shoulder pain, wants to discuss shoulder injection HPI Gricelda Norman is a 61 y.o. female past [...] then started on hydroxyzine but has not startedtaking this yet because she read the side effects and did not want to feel drowsy. I advised the ptto start taking 1 at night and increase [...] she has been talking to her daughter moreand her work load has decrease. Her manager radiation has placed her in a less stressful position w/ less hours and she feels like this has helped. 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 She states she found apatient laying face down and apparently she had passed but no one was aware of this. She states shewants to continue working there because they need her- she has been working daily 7 days a week andhasn't had time off. She has increased agitation, anxiety, dysphoric mood and has been picking at her skin which she has not done in years. She feels overwhelmed. She denies any hallucinations/delusions, no thoughts of SI/HI. She is compliant with her lamotrigine. We discussed counseling and takingtime off to recover but she continues to [...] feel like she has time. We discussed tele [facility] that were available and patient was amenable to thinking about it. -she also states having financial difficulties- stating she can't take time off of work because sheneeded help w/ finances. Her fridge broke and [...] how she is going to find time toget treatment. She does not want to go through surgery and she is afraid that she may have to. She has been following up w/ orthopedics at [facility] for hip injections. I advised the pt that pain management may be an option but we need updated xrays. She states she will discuss this w/ orthopedics at [facility] first to see if they are able to do xrays at their facility and then get backto me. At this time she has been taking gabapentin which 'takes the edge off' she states even the tramadol does not help anymore. She has been taking tylenol and ibuprofen which do not alleviate her sx--advised pt that she shouldnot be taking ibuprofen due to her cardiac [...] 10/05/2015 Bipolar disorder, most recent episode depressed ([facility]) 12/25/2020 Callus of foot interdigital on right [...] Penicillins Iodine And Iodide Containing Products Unknown Scmniydv-Skrmupkkf-Pupmtvsqfs rash and itching Adhesive Itching and Rash Plastic bandaids Ct: Iodinated Contrast- Oral And Iv Dye Unknown and Rash Neosporin (Qif-Hyd-Lgsuv) [Idcecqor-Rjcnidivdt-Gyeantqbt] Rash Ointment only Patient's Medications New Prescriptions [...] the following: Height as of 05/25/22: 5' 6. Weight as of 05/25/22: 74.8 kg (165 [...] normal. She does not perceive auditory or visualhallucinations. Mood and Affect: Mood is anxious and [...] comments: QUIT IN 1999 documented in this [id number] Instructions* Patient Instructions* Liliya Lara MD - 05/29/2022 12:58 PM [...] given hand out w/ counseling centers in [place] and encouraged to reach out Relevant Orders Ambulatory Ref to [place] CM Public Relations Specialist Financial difficulties - Primary Social work referral [...] Most normal results will be available through [facility] however if abnormal, you will be notified. [...] look into their status. Customer Service/Billing Questions: [phone] [facility] Assistance: [phone] or [phone] Financial Assistance: [phone] or [phone] documented in this [id number] Evaluation + Plan note* Assessment & Plan Note - Liliya Lara MD - 05/29/2022 12:56 PM EDTAssociated Problem(s): Arm skin lesion, right Will prescribe keflex X 5 days Pt does compulsively pick at her skin due to anxiety W/ buspar added, I am hoping this decreases [id number] Miscellaneous Notes* Assessment & Plan Note - Liliya Lara MD - 05/29/2022 12:56 PM EDTAssociated Problem(s): Arm skin lesion, right Will prescribe keflex X 5 days Pt does compulsively pick at her skin due to anxiety W/ buspar added, I am hoping this decreases * Assessment & Plan Note - Liliya Lara MD - 05/29/2022 12:54 PM EDTAssociated Problem(s): Financial difficulties Social work referral placed to help w/ community resources * Assessment & Plan Note - Liliya Lara MD - 05/29/2022 12:53 PM EDTAssociated Problem(s): Anxiety Acute increase in anxiety symptoms She is compliant w/ lamictal 200mg daily Will start buspar 10mg tid -she has previous prescription of xanax which she uses sparingly Pt given hand out w/ counseling centers in [place] and encouraged to reach out documented in this [id number] Evaluation + Plan note* Assessment & Plan Note - Liliya Lara MD - 05/29/2022 12:54 PM EDTAssociated Problem(s): Financial difficulties Social work referral placed to help w/ community resources [id number] Evaluation + Plan note* Assessment & Plan Note - Liliya Lara MD - 05/29/2022 12:53 PM EDTAssociated Problem(s): Anxiety Acute increase in anxiety symptoms She is compliant w/ lamictal 200mg daily Will start buspar 10mg tid -she has previous prescription of xanax which she uses sparingly Pt given hand out w/ counseling centers in [place] and encouraged to reach out [id number] Note* Addendum Note - Liliya Lara MD - 05/26/2022 4:48 PM EDTAddended by: LILIYA LARA on: 05/26/2022 04:48 PM Modules accepted: Orders [id number] Note* Addendum Note - Liliya Lara MD - 05/26/2022 4:48 PM EDTAddended by: LILIYA LARA on: 05/26/2022 04:48 PM Modules accepted: Orders [id number] Miscellaneous Notes* Addendum Note - Liliya Lara MD - 05/26/2022 4:48 PM EDTAddended by: LILIYA LARA on: 05/26/2022 04:48 PM Modules accepted: Orders documented in this [id number] History of Present illness Narrative* SAYDA Figueroa - 05/25/2022 2:02 PM EDT [facility] SAYDA Holden assisting FLORIDA Quinones. [facility] called Gricelda regarding BHIP referral from PCP: Liliya Lara MD. Initial attempt. No answer, left vm with [facility] contact information encouraging a call back to discussthe referral further. Follow up scheduled for approx. 1-2 week(s). documented in this [id number] History of Present illness Narrative* Thania Espana MA - 05/25/2022 7:18 AM EDT 4 weeks (around 06/22/2022) for Follow up telehealth. Patient would like to come into the office for appointment. * Liliya Lara MD - 05/25/2022 6:48 AM EDT Assessment Assessment/Plan: Problem List Anxiety Acute increase in anxiety symptoms She is compliant w/ lamictal 200mg daily Will start buspar 10mg tid -she has previous prescription of xanax which she uses sparingly Pt given hand out w/ counseling centers in [place] and encouraged to reach out Relevant Orders Ambulatory Ref to [place] CM Public Relations Specialist Financial difficulties - Primary Social work referral [...] effects of the medications. Liliya Lara MD [facility] [address] [facility] [address] [facility] [id number] Dept: [phone] Subjective Patient ID: Gricelda Norman is a 61 y.o. female. Chief Complaint Patient presents with Anxiety HPI Gricelda Norman is a 61 y.o. female past medical history of osteoarthritis, CADs/p PCI and CABG (SVG-OM1, ROSAS-OM2, SVG-OM3), bipolar disorder, DJD, hypertension, GERD, anxiety, osteoporosis, migraines presenting for worsening anxiety symptoms. 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 She feels overwhelmed. She denies any hallucinations/delusions,no thoughts of SI/HI. She is compliant with [...] feel like she has time. We discussed telehealt h appointments that were available and patient was amenable to thinking about it. -she also states having financial difficulties- stating she can't take time off of work because sheneeded help w/ finances. Her fridge broke and [...] 10/05/2015 Bipolar disorder, most recent episode depressed ([facility]) 12/25/2020 Callus of foot interdigital on right [...] Penicillins Iodine And Iodide Containing Products Unknown Aifapkwt-Loswdjaox-Xzphdjabne rash and itching Adhesive Itching and Rash Plastic bandaids Ct: Iodinated Contrast- Oral And Iv Dye Unknown and Rash Neosporin (Iiu-Veq-Lhwqu) [Cfdaohgi-Cosnozztyo-Rkvlyhzrm] Rash Ointment only Patient's Medications New Prescriptions [...] total) by mouth 2 (two) times a dayfor 5 days . Previous Medications ASPIRIN 81 [...] following: Height as of this encounter: 5' 6. Weight as of this encounter: 74.8 kg [...] Not difficult at all documented in this [id number] History of Present illness Narrative* Liliya Lara MD - 04/27/2022 9:23 AM EDT Subjective Patient ID: Gricelda Norman is a 61 y.o. female. Chief Complaint Patient presents with Follow-up 5 week f/u- Pt wants to have her ears checked. HPI Gricelda Norman is a 61 y.o. female past [...] explained to the patient who verbalized understanding Achloraprep X3 was used to clean the skin surface bilaterally. 1ml kenalog was mixed with 4ml of lidocaine and injected in R shoulder posteriorly. ml 1 kenalog was mixed with 4ml of lidocaine and injected in L shoulder posteriorly. The patient tolerated the procedure well without difficulty. A bandage was applied and there was nosignificant blood loss. Appropriate aftercare was discussed. All [...] 10/05/2015 Bipolar disorder, most recent episode depressed ([facility]) 12/25/2020 Callus of foot interdigital on right foot Chronic prescription opiate use Circulation problem Controlled substance agreement signed Depression Hair loss Heart disease Migraine 12/25/2020 Myocardial infarct (HCC) PT STATES SHE HAS HAD 10 HEART ATTACKS FROM 1999 TO 2004 Painful orthopaedic hardware (HCC) Left first MPJ [...] Penicillins Iodine And Iodide Containing Products Unknown Bwtscmwj-Rjssgmhge-Jmoununieo rash and itching Adhesive Itching and Rash Plastic bandaids Ct: Iodinated Contrast- Oral And Iv Dye Unknown and Rash Neosporin (Nfq-Qky-Plypo) [Oxykqckd-Trmlojjvga-Xriwmcqyr] Rash Ointment only Patient's Medications New Prescriptions [...] following: Height as of this encounter: 5' 6. Weight as of this encounter: 77.1 kg [...] controlled on lamictal CAD (coronary artery disease), [place] coronary artery - Primary Status post bypass [...] effects of the medications. Liliya Lara MD [facility] [address] [facility] [address] Dept: [phone] documented in this [id number] Evaluation + Plan note* Assessment & Plan Note - Liliya Lara MD - 04/27/2022 9:14 AM EDTAssociated Problem(s): Bipolar disorder, most recent episode depressed (HCC) Sx controlled on lamictal [id number] Instructions* Patient Instructions* Liliya Lara MD - 04/27/2022 9:14 AM EDT Problem List Items Addressed This Visit Cardiovascular and Mediastinum CAD (coronary artery disease), [place] coronary artery - Primary Status post bypass [...] Most normal results will be available through [facility] however if abnormal, you will be notified. [...] look into their status. Customer Service/Billing Questions: [phone] [facility] Assistance: [phone] or [phone] Financial Assistance: [phone] or [phone] documented in this [id number] Miscellaneous Notes* Assessment & Plan Note - Liliya Lara MD - 04/27/2022 9:14 AM EDTAssociated Problem(s): Bipolar disorder, most recent episode depressed (HCC) Sx controlled on lamictal * Assessment & Plan Note - Liliya Lara MD - 04/27/2022 9:13 AM EDTAssociated Problem(s): Hypercholesterolemia Has not followed up w/ lipid panel * Assessment & Plan Note - Liliya Lara MD - 04/27/2022 9:12 AM EDTAssociated Problem(s): Bilateral shoulder bursitis Corticosteroid injections administered today bilateral shoulders Will get updated imaging Pt declined pt/ot * Assessment & Plan Note - Liliya Lara MD - 04/27/2022 9:11 AM EDTAssociated Problem(s): Osteoporosis Advised to follow up with DEXA scan and vitamin D level She is not taking vit d and calcium supplements * Assessment & Plan Note - Liliya Lara MD - 04/27/2022 9:09 AM EDTAssociated Problem(s): CAD (coronary artery disease), [place] coronary artery Status post bypass graft. Currently on Imdur and Bumex she is also taking aspirin and statin as well as lisinopril Last cardiac cath was in 2005 at which time she was not a candidate for surgery. Patient is following up with cardiology. * Assessment & Plan Note - Liliya Lara MD - 04/27/2022 9:08 AM EDTAssociated Problem(s): Essential hypertension Well controlled * Assessment & Plan Note - Liliya Lara MD - 04/27/2022 9:08 AM EDTAssociated Problem(s): Migraine Well controlled on tylenol- she has not needed any additional medications at this time documented in this [id number] Evaluation + Plan note* Assessment & Plan Note - Liliya Lara MD - 04/27/2022 9:13 AM EDTAssociated Problem(s): Hypercholesterolemia Has not followed up w/ lipid panel [id number] Evaluation + Plan note* Assessment & Plan Note - Liliya Lara MD - 04/27/2022 9:12 AM EDTAssociated Problem(s): Bilateral shoulder bursitis Corticosteroid injections administered today bilateral shoulders Will get updated imaging Pt declined pt/ot [id number] Evaluation + Plan note* Assessment & Plan Note - Liliya Lara MD - 04/27/2022 9:11 AM EDTAssociated Problem(s): Osteoporosis Advised to follow up with DEXA scan and vitamin D level She is not taking vit d and calcium supplements [id number] Evaluation + Plan note* Assessment & Plan Note - Liliya Lara MD - 04/27/2022 9:09 AM EDTAssociated Problem(s): CAD (coronary artery disease), [place] river coronary artery Status post bypass graft. Currently on Imdur and Bumex she is also taking aspirin and statin as well as lisinopril Last cardiac cath was in 2005 at which time she was not a candidate for surgery. Patient is following up with cardiology. [id number] Evaluation + Plan note* Assessment & Plan Note - Liliya Lara MD - 04/27/2022 9:08 AM EDTAssociated Problem(s): Essential hypertension Well controlled [id number] Evaluation + Plan note* Assessment & Plan Note - Liliya Lara MD - 04/27/2022 9:08 AM EDTAssociated Problem(s): Migraine Well controlled on tylenol- she has not needed any additional medications at this time [id number] History of Present illness Narrative* Shyla Francis RN - 02/23/2022 9:12 AM EDT PT HERE FOR 3RD COVID VACCINE. VACCINE ADMINISTERED INTO LEFT ARM. TOLERATED WELL. PT OBSERVED FOR 10 MINUTES TO MONITOR FOR VACCINE REACTIONS. NO REACTIONS NOTED. PT AMBULATORY TO EXIT. documented in this [id number] Instructions* Patient Instructions* Liliya Lara MD - 01/19/2022 4:39 PM EST Problem List Items Addressed This Visit Cardiovascular and Mediastinum CAD (coronary artery disease), salt river coronary artery Relevant Medications bumetanide (BUMEX) 0.5 [...] Most normal results will be available through [facility] however if abnormal, you will be notified. [...] look into their status. Customer Service/Billing Questions: [phone] [facility] Assistance: [phone] or [phone] Financial Assistance: [phone] or [phone] documented in this [id number] Evaluation + Plan note* Assessment & Plan Note - Liliya Lara MD - 01/19/2022 4:38 PM ESTAssociated Problem(s): Bilateral shoulder bursitis Corticosteroid injections administered today [id number] Miscellaneous Notes* Assessment & Plan Note - Liliya Lara MD - 01/19/2022 4:38 PM ESTAssociated Problem(s): Bilateral shoulder bursitis Corticosteroid injections administered today * Assessment & Plan Note - Liliya Lara MD - 01/19/2022 4:37 PM ESTAssociated Problem(s): Edema of lower extremity Continue bumex 1mg Am and we will decrease bumex to 0.5mg PM * Assessment & Plan Note - Liliya Lara MD - 01/19/2022 4:37 PM ESTAssociated Problem(s): Encounter for gynecological examination Pap smear completed Will test for g/c/trichominosis documented in this [id number] Evaluation + Plan note* Assessment & Plan Note - Liliya Lara MD - 01/19/2022 4:37 PM ESTAssociated Problem(s): Edema of lower extremity Continue bumex 1mg Am and we will decrease bumex to 0.5mg PM [id number] Evaluation + Plan note* Assessment & Plan Note - Liliya Lara MD - 01/19/2022 4:37 PM ESTAssociated Problem(s): Encounter for gynecological examination Pap smear completed Will test for g/c/trichominosis [id number] History of Present illness Narrative* Liliya Lara MD - 01/19/2022 3:53 PM EST Subjective Patient ID: Gricelda Norman is a 61 y.o. female. Chief Complaint Patient presents with Gynecologic Exam HPI Gricelda Norman is a 61 y.o. female past [...] bumex dose to 0.5mg as she gets homeat 7pm. All pertinent positives and negatives are [...] Hair loss Headache Heart disease Hyperlipidemia Hypertension [place], old Migraine 12/25/2020 Myocardial infarct (HCC) PT [...] Penicillins Iodine And Iodide Containing Products Unknown Yrgejmky-Dzhfyowsu-Nptewwbofm rash and itching Adhesive Itching and Rash Plastic bandaids Neosporin (Jnv-Mkx-Xujhg) [Brjcwdqg-Zsfaxkemjr-Xfquklpne] Rash Ointment only Patient's Medications New Prescriptions [...] with breakfast Start: 04/21/22. Take 1 (one) tablet(1 mg total) by mouth 2 (two) times [...] following: Height as of this encounter: 5' 6. Weight as of this encounter: 77.6 kg (171 lb). Physical Exam Exam conducted with a corn detasseler present. Genitourinary: Exam position: Lithotomy position. Vagina: [...] Assessment/Plan: Problem List CAD (coronary artery disease), salt river coronary artery Relevant Medications bumetanide (BUMEX) 0.5 [...] the medications. Liliya Lara MD [facility] [address] [facility] [address] [facility] [address] Dept: [phone] documented in this [id number] Evaluation + Plan note* Assessment & Plan Note - Liliya Lara MD - 01/16/2022 9:03 PM ESTAssociated Problem(s): Symptomatic bradycardia S/p LHC and ECHO on 12/28/21 and 12/25/21 respectively Continues to have episodes of lightheadedness She was evaluated by cardiology- at this time medical therapy was indicated [id number] Miscellaneous Notes* Assessment & Plan Note - Liliya Lara MD - 01/16/2022 9:03 PM ESTAssociated Problem(s): Symptomatic bradycardia S/p LHC and ECHO on 12/28/21 and 12/25/21 respectively Continues to have episodes of lightheadedness She was evaluated by cardiology- at this time medical therapy was indicated * Assessment & Plan Note - Liliya Lara MD - 01/16/2022 8:51 PM ESTAssociated Problem(s): Migraine nurtec prescribed however due to pending authorizations, she has not received this medication Advised pt that it was approved today and she should have this available Previously has used imitrex-this was discontinued due to underlying heart disease and she also states that this did not control her symptoms * Assessment & Plan Note - Liliya Lara MD - 01/16/2022 8:50 PM ESTAssociated Problem(s): 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 At this time continue medical therapy On antianginal isosorbide nitrate Dr. Woo- cardiology is following * Assessment & Plan Note - Liliya Lara MD - 01/16/2022 8:48 PM ESTAssociated Problem(s): Encounter for screening mammogram for breast cancer Has not had mammogram >10 years Discussed preventative measures w/ patient She was amenable for mammogram documented in this [id number] Evaluation + Plan note* Assessment & Plan Note - Liliya Lara MD - 01/16/2022 8:51 PM ESTAssociated Problem(s): Migraine nurtec prescribed however due to pending authorizations, she has not received this medication Advised pt that it was approved today and she should have this available Previously has used imitrex-this was discontinued due to underlying heart disease and she also states that this did not control her symptoms [id number] Evaluation + Plan note* Assessment & Plan Note - Liliya Lara MD - 01/16/2022 8:50 PM ESTAssociated Problem(s): 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 At this time continue medical therapy On antianginal isosorbide nitrate Dr. Woo- cardiology is following [id number] Evaluation + Plan note* Assessment & Plan Note - Liliya Lara MD - 01/16/2022 8:48 PM ESTAssociated Problem(s): Encounter for screening mammogram for breast cancer Has not had mammogram >10 years Discussed preventative measures w/ patient She was amenable for mammogram [id number] History of Present illness Narrative* Liliya Lara MD - 01/13/2022 9:57 AM EST Subjective Patient ID: Gricelda Norman is a 61 y.o. female. Chief Complaint Patient presents with Follow-up HPI Gricelda Norman is a 61 y.o. female past [...] frequently. We discussed pt reaching out to [place] [facility] to discuss life alert. CAD s/p CABG X3- continues to have some chest pressure/pain. Is on antianginals. Recent echo showedpreserved ejection fraction. No intervention advised by cardiology [...] hours to each- starting from the back ofher neck and radiating to her forehead. She [...] Hair loss Headache Heart disease Hyperlipidemia Hypertension [place], old Migraine 12/25/2020 Myocardial infarct (HCC) PT [...] Penicillins Iodine And Iodide Containing Products Unknown Gxjwwfli-Ciegwixxl-Opodoccqgv rash and itching Adhesive Itching and Rash Plastic bandaids Neosporin (Vxr-Xhj-Zuzun) [Jujggozn-Cvjdksdept-Rwojlduuk] Rash Ointment only Patient's Medications New Prescriptions [...] total) by mouth as needed May repeat doseafter 2 hours Do not exceed 200mg/24h . [...] following: Height as of this encounter: 5' 6. Weight as of this encounter: 78.5 kg [...] showed: SVG-OM1 graft known to be occluded, GOLF COURSE ASSISTANT of the mid left circumflex stentand patent ROSAS-OM2, SVG-OM3 graft is known to [...] the medications. Liliya Lara MD [facility] [address] [facility] [address] [facility] [address] Dept: [phone] documented in this [id number] History of Present illness Narrative* Shyla Francis RN - 12/30/2021 11:16 AM EST APPEAL PAPERWORK RECEIVED. THIS NURSE DID GO AHEAD AND FILL OUT AND FAX BACK TO NUMBER ON DOCUMENTATION ([phone]). DOCUMENTATION SCANNED INTO CHART. * Shyla Francis RN - 12/30/2021 10:50 AM EST SPOKE WITH DR. LARA. DR. LARA REPORTS THAT SHE COMPLETED APPEAL AND THE LAST OFFICE NOTE NEEDS FAXED. LAST OFFICE NOTE (12/15/21) FAXED TO [facility] APPEALS DEPT AT NUMBER PROVIDED BY PROVIDER ([phone]). * Shyla Francis RN - 12/30/2021 10:50 AM EST SPOKE WITH DR. LARA. DR. LARA REPORTS THAT SHE COMPLETED APPEAL AND THE LAST OFFICE NOTE NEEDS FAXED. LAST OFFICE NOTE (12/15/21) FAXED TO [facility] DEPT AT NUMBER PROVIDED BY PROVIDER ([phone]). * Shyla Francis RN - 12/30/2021 10:48 AM EST SPOKE WITH DR. LARA. DR. LARA REPORTS THAT SHE COMPLETED APPEAL AND THE LAST OFFICE NOTE NEEDS FAXED. LAST OFFICE NOTE (12/15/21) FAXED TO [facility] DEPT AT NUMBER PROVIDED BY PROVIDER ([phone]). * Shyla Francis RN - 12/29/2021 3:59 PM EST NO PAPEWRORK FOR APPEAL RECEIVED. PA ATTEMPTED AGAIN THROUGH COVER MY MEDS * Liliya Lara MD - 12/28/2021 5:49 PM EST Fax number for appeal is [phone] * Shyla Francis RN - 12/24/2021 10:58 AM EST DOCUMENTATION RECEIVED. PA RE-ATTEMPT CANCELLED THROUGH COVER MY MEDS. THIS NURSE CALLED PHONE NUMBER LISTED ON CANCELLATION NOTIFICATION. I HAVE CALLED BOTH NUMBERS PROVIDED BY EACH OTHER. NOBODY CAN GIVE ME A RESPONSE TO THIS PA APPEAL.PHONE CALL TIME >30 MINUTES. PLEASE ADVISE. * Shyla Francis RN - 12/22/2021 1:33 PM EST PA RESUBMITTED THROUGH COVER MY MEDS. * Shyla Francis RN - 12/22/2021 1:11 PM EST UBRELVY DENIED COVERAGE. REQUESTING ALTERNATIVE OF NARATRIPTAN OR RIZATRIPTAN. * Shyla Francis RN - 12/22/2021 9:27 AM EST PA INITIATED FOR UBRELVY THROUGH COVER MY MEDS. documented in this [id number] History of Present illness Narrative* Shyla Francis RN - 12/30/2021 10:50 AM EST SPOKE WITH DR. LARA. DR. LARA REPORTS THAT SHE COMPLETED APPEAL AND THE LAST OFFICE NOTE NEEDS FAXED. LAST OFFICE NOTE (12/15/21) FAXED TO [facility] DEPT AT NUMBER PROVIDED BY PROVIDER ([phone]). * Shyla Francis RN - 12/30/2021 10:50 AM EST SPOKE WITH DR. LARA. DR. LARA REPORTS THAT SHE COMPLETED APPEAL AND THE LAST OFFICE NOTE NEEDS FAXED. LAST OFFICE NOTE (12/15/21) FAXED TO [facility] DEPT AT NUMBER PROVIDED BY PROVIDER ([phone]). * Shyla Francis RN - 12/30/2021 10:48 AM EST SPOKE WITH DR. LARA. DR. LARA REPORTS THAT SHE COMPLETED APPEAL AND THE LAST OFFICE NOTE NEEDS FAXED. LAST OFFICE NOTE (12/15/21) FAXED TO [facility] DEPT AT NUMBER PROVIDED BY PROVIDER ([phone]). * Shyla Francis RN - 12/29/2021 3:59 PM EST NO PAPEWRORK FOR APPEAL RECEIVED. PA ATTEMPTED AGAIN THROUGH COVER MY MEDS * Liliya Lara MD - 12/28/2021 5:49 PM EST Fax number for appeal is [phone] * Shyla Francis RN - 12/24/2021 10:58 AM EST DOCUMENTATION RECEIVED. PA RE-ATTEMPT CANCELLED THROUGH COVER MY MEDS. THIS NURSE CALLED PHONE NUMBER LISTED ON CANCELLATION NOTIFICATION. I HAVE CALLED BOTH NUMBERS PROVIDED BY EACH OTHER. NOBODY CAN GIVE ME A RESPONSE TO THIS PA APPEAL.PHONE CALL TIME >30 MINUTES. PLEASE ADVISE. * Shyla Francis RN - 12/22/2021 1:33 PM EST PA RESUBMITTED THROUGH COVER MY MEDS. * Shyla Francis RN - 12/22/2021 1:11 PM EST UBRELVY DENIED COVERAGE. REQUESTING ALTERNATIVE OF NARATRIPTAN OR RIZATRIPTAN. * Shyla Francis RN - 12/22/2021 9:27 AM EST PA INITIATED FOR UBRELVY THROUGH COVER MY MEDS. documented in this [id number] History of Present illness Narrative* Shyla Francis RN - 12/30/2021 10:48 AM EST SPOKE WITH DR. LARA. DR. LARA REPORTS THAT SHE COMPLETED APPEAL AND THE LAST OFFICE NOTE NEEDS FAXED. LAST OFFICE NOTE (12/15/21) FAXED TO [facility] DEPT AT NUMBER PROVIDED BY PROVIDER ([phone]). * Shyla Francis RN - 12/29/2021 3:59 PM EST NO PAPEWRORK FOR APPEAL RECEIVED. PA ATTEMPTED AGAIN THROUGH COVER MY MEDS * Liliya Lara MD - 12/28/2021 5:49 PM EST Fax number for appeal is [phone] * Shyla Francis RN - 12/24/2021 10:58 AM EST DOCUMENTATION RECEIVED. PA RE-ATTEMPT CANCELLED THROUGH COVER MY MEDS. THIS NURSE CALLED PHONE NUMBER LISTED ON CANCELLATION NOTIFICATION. I HAVE CALLED BOTH NUMBERS PROVIDED BY EACH OTHER. NOBODY CAN GIVE ME A RESPONSE TO THIS PA APPEAL.PHONE CALL TIME >30 MINUTES. PLEASE ADVISE. * Shyla Francis RN - 12/22/2021 1:33 PM EST PA RESUBMITTED THROUGH COVER MY MEDS. * Shyla Francis RN - 12/22/2021 1:11 PM EST UBRELVY DENIED COVERAGE. REQUESTING ALTERNATIVE OF NARATRIPTAN OR RIZATRIPTAN. * Shyla Francis RN - 12/22/2021 9:27 AM EST PA INITIATED FOR UBRELVY THROUGH COVER MY MEDS. 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 [...] look into their status. Customer Service/Billing Questions: [phone] [facility] Assistance: [phone] or [phone] Financial Assistance: [phone] or [phone] documented in this [id number] Miscellaneous Notes* Assessment & Plan Note - Liliya Lara MD - 12/29/2021 4:27 PM EST Associated Problem(s): Allergic reaction 2/2 to contrast dye used in L heart cath yesterday prednisone X5 days Benadryl w5g-e7t Pt following up with her barn boss tomorrow Alarming/Red flag signs and symptoms discussed with the patient, patient instructed to seek medicalattention at ED RL if any such symptoms develop. Pt expressed understanding. documented in this [id number] History of Present illness Narrative* Liliya Lara MD - 12/29/2021 4:13 PM EST Subjective Patient ID: Gricelda Norman is a 61 y.o. female. Chief Complaint Patient presents with Rash On left wrist had heart cath yesterday HPI Gricelda Norman is a 61 y.o. female past [...] is poorly described but is constant and shestates the itching can worsen the pain. They [...] Hair loss Headache Heart disease Hyperlipidemia Hypertension [place], old Myocardial infarct (HCC) PT STATES SHE [...] Penicillins Iodine And Iodide Containing Products Unknown Vlnimiax-Fnjpqvdbk-Thohnneljj rash and itching Adhesive Itching and Rash Plastic bandaids Neosporin (Kqq-Vhb-Gzkmc) [Cdewimih-Rockdaowkb-Kqjiwjtil] Rash Ointment only Patient's Medications New Prescriptions [...] total) by mouth as needed May repeat doseafter 2 hours Do not exceed 200mg/24h . [...] following: Height as of this encounter: 5' 6. Weight as of this encounter: 77.1 kg [...] heart cath yesterday prednisone X5 days Benadryl o2j-m1f Pt following up with her barn boss tomorrow Alarming/Red flag signs and symptoms discussed with the patient, patient instructed to seek medicalattention at ED RL if any such symptoms develop. Pt expressed understanding. Relevant Medications predniSONE (DELTASONE) 20 MG tablet Return for follow up scheduled in January. For any new medications prescribed today, patient was educated about indications for the medication, how to take the medication and potential side effects of the medications. Liliya Lara MD [facility] [address] [facility] [address] [facility] [address] Dept: [phone] documented in this [id number] History of Present illness Narrative* Shyla Francis RN - 12/29/2021 3:59 PM EST NO PAPEWRORK FOR APPEAL RECEIVED. PA ATTEMPTED AGAIN THROUGH COVER MY MEDS * Liliya Lara MD - 12/28/2021 5:49 PM EST Fax number for appeal is [phone] * Shyla Francis RN - 12/24/2021 10:58 AM EST DOCUMENTATION RECEIVED. PA RE-ATTEMPT CANCELLED THROUGH COVER MY MEDS. THIS NURSE CALLED PHONE NUMBER LISTED ON CANCELLATION NOTIFICATION. I HAVE CALLED BOTH NUMBERS PROVIDED BY EACH OTHER. NOBODY CAN GIVE ME A RESPONSE TO THIS PA APPEAL.PHONE CALL TIME >30 MINUTES. PLEASE ADVISE. * Shyla Francis RN - 12/22/2021 1:33 PM EST PA RESUBMITTED THROUGH COVER MY MEDS. * Shyla Francis RN - 12/22/2021 1:11 PM EST UBRELVY DENIED COVERAGE. REQUESTING ALTERNATIVE OF NARATRIPTAN OR RIZATRIPTAN. * Shyla Francis RN - 12/22/2021 9:27 AM EST PA INITIATED FOR UBRELVY THROUGH COVER MY MEDS. documented in this [id number] History of Present illness Narrative* Liliya Lara MD - 12/28/2021 5:49 PM EST Fax number for appeal is [phone] * Shyla Francis RN - 12/24/2021 10:58 AM EST DOCUMENTATION RECEIVED. PA RE-ATTEMPT CANCELLED THROUGH COVER MY MEDS. THIS NURSE CALLED PHONE NUMBER LISTED ON CANCELLATION NOTIFICATION. I HAVE CALLED BOTH NUMBERS PROVIDED BY EACH OTHER. NOBODY CAN GIVE ME A RESPONSE TO THIS PA APPEAL.PHONE CALL TIME >30 MINUTES. PLEASE ADVISE. * Shyla Francis RN - 12/22/2021 1:33 PM EST PA RESUBMITTED THROUGH COVER MY MEDS. * Shyla Francis RN - 12/22/2021 1:11 PM EST UBRELVY DENIED COVERAGE. REQUESTING ALTERNATIVE OF NARATRIPTAN OR RIZATRIPTAN. * Shyla Francis RN - 12/22/2021 9:27 AM EST PA INITIATED FOR UBRELVY THROUGH COVER MY MEDS. documented in this [id number] History of Present illness Narrative* Shyla Francis RN - 12/24/2021 10:58 AM EST DOCUMENTATION RECEIVED. PA RE-ATTEMPT CANCELLED THROUGH COVER MY MEDS. THIS NURSE CALLED PHONE NUMBER LISTED ON CANCELLATION NOTIFICATION. I HAVE CALLED BOTH NUMBERS PROVIDED BY EACH OTHER. NOBODY CAN GIVE ME A RESPONSE TO THIS PA APPEAL.PHONE CALL TIME >30 MINUTES. PLEASE ADVISE. * Shyla Francis RN - 12/22/2021 1:33 PM EST PA RESUBMITTED THROUGH COVER MY MEDS. * Shyla Francis RN - 12/22/2021 1:11 PM EST UBRELVY DENIED COVERAGE. REQUESTING ALTERNATIVE OF NARATRIPTAN OR RIZATRIPTAN. * Shyla Francis RN - 12/22/2021 9:27 AM EST PA INITIATED FOR UBRELVY THROUGH COVER MY MEDS. documented in this [id number] History of Present illness Narrative* Shyla Francis RN - 12/22/2021 1:11 PM EST UBRELVY DENIED COVERAGE. REQUESTING ALTERNATIVE OF NARATRIPTAN OR RIZATRIPTAN. * Shyla Francis RN - 12/22/2021 9:27 AM EST PA INITIATED FOR UBRELVY THROUGH COVER MY MEDS. documented in this [id number] Instructions* Patient Instructions* Liliya Lara MD - 12/17/2021 6:13 PM [...] Most normal results will be available through [facility] however if abnormal, you will be notified. [...] look into their status. Customer Service/Billing Questions: [phone] [facility] Assistance: [phone] or [phone] Financial Assistance: [phone] or [phone] documented in this [id number] Miscellaneous Notes* Assessment & Plan Note - Liliya Lara MD - 12/17/2021 6:13 PM EST Associated Problem(s): Vertigo Improved significantly -epleys maneuver completed in ED which help w/ pts sx -will discontinue vestibular therapy and meclizine prescribed yesterday * Assessment & Plan Note - Liliya Lara MD - 12/17/2021 6:12 PM EST Associated Problem(s): Symptomatic bradycardia Pt needs to follow up with cardiology -evaluation for possible pacemaker * Assessment & Plan Note - Liliya Lara MD - 12/17/2021 6:10 PM EST Associated Problem(s): Migraine nurtec prescribed -pt amenable to using medication * Assessment & Plan Note - Liliya Lara MD - 12/17/2021 6:05 PM EST Associated Problem(s): Acute midline low back pain without sciatica Short course of percocets placed for acute on chronic back pain. Patient was advised of risks and benefits of controlled substance and verbalized understanding. OARRS performed . No suspicious behavior, concerning or suspicious history given at this visit. Pt will not receive any refills of this medication documented in this [id number] Miscellaneous Notes* Assessment & Plan Note - Liliya Lara MD - 12/17/2021 6:13 PM EST Associated Problem(s): Vertigo Improved significantly -epleys maneuver completed in ED which help w/ pts sx -will discontinue vestibular therapy and meclizine prescribed yesterday * Assessment & Plan Note - Liliya Lara MD - 12/17/2021 6:12 PM EST Associated Problem(s): Symptomatic bradycardia Pt needs to follow up with cardiology -evaluation for possible pacemaker * Assessment & Plan Note - Liliya Lara MD - 12/17/2021 6:10 PM EST Associated Problem(s): Migraine nurtec prescribed -pt amenable to using medication -She also has a hx of CAD and triptans are contraindicated. * Assessment & Plan Note - Liliya Lara MD - 12/17/2021 6:05 PM EST Associated Problem(s): Acute midline low back pain without sciatica Short course of percocets placed for acute on chronic back pain. Patient was advised of risks and benefits of controlled substance and verbalized understanding. OARRS performed . No suspicious behavior, concerning or suspicious history given at this visit. Pt will not receive any refills of this medication documented in this [id number] History of Present illness Narrative* Liliya Lara MD - 12/15/2021 6:45 PM EST Subjective Patient ID: Gricelda Norman is a 61 y.o. female. Chief Complaint Patient presents with Migraine Dizziness pain in back HPI Gricelda Norman is a 61 y.o. female past medical history of osteoarthritis, CADs/p PCI and CABG (SVG-OM1, ROSAS-OM2, SVG-OM3), bipolar disorder, DJD, hypertension, GERD, anxiety, osteoporosis, migraines presenting after ER visit for bradycardia, weakness fatigue and dizziness yesterday. Patient's daughter Joyce is also present Patient was transferred to [facility] yesterday for her symptoms. Unfortunately she left [...] notes Katja's maneuver was completed which helped alleviatepatient's dizziness. Cardiology was consulted and they did not feel that admission was necessary as chest pressure/pain was not ischemic in nature. Patient's heart rate did drop to the forties multiple times however per notes blood pressure remained stable and did not feel that further intervention was needed at this time. She states she spoke to her barn boss who will schedule a follow up appointment in the next few days for follow up and that they were aware that she was not admitted. Notes from yesterday: Weakness and fatigue . She states 4 days ago she became very lightheaded and dizzy. She tried to go to sleep however on Tuesday she woke up and was unable to sit up and it tookher 15 to 20 minutes to reorient herself [...] She has not measured her heart rate sincethen. Patient stated having left shoulder pain (hx of shoulder bursitis) but denies any numbness ortingling. She states when she tries to lift [...] significantly but she continues to have lower backpain which was exacerbated over the last few days. She received Percocet in the ED and is requesting a few more day of prescription. We had extensive conversation that due to patient's bradycardia aswell as residual dizziness use of Percocets was [...] however this was not sent in as patientwas admitted to the ED. Patient states increased in severity occurring every 1 to 2 days, lasting afew hours each time. She continues to take [...] Hair loss Headache Heart disease Hyperlipidemia Hypertension DE, old Myocardial infarct (HCC) PT STATES SHE [...] Penicillins Iodine And Iodide Containing Products Unknown Prckcosk-Nftbomowg-Mhmjydnojq rash and itching Adhesive Itching and Rash Plastic bandaids Neosporin (Tui-Eof-Mkyta) [Oaoyqwvj-Meexcgopki-Bxsprqnaq] Rash Ointment only Patient's Medications New Prescriptions OXYCODONE-ACETAMINOPHEN (PERCOCET) 5-325 MG PER TABLET Take 1 (one) tablet by mouth every 8 (eight)hours as needed for pain . RIMEGEPANT 75 [...] following: Height as of this encounter: 5' 6. Weight as of this encounter: 77.7 kg [...] effects of the medications. Liliya Lara MD [place] [id number] [facility] [address] [place] [id number] Dept: [phone] documented in this [id number] History of Present illness Narrative* Liliya Lara MD - 12/15/2021 6:45 PM EST Subjective Patient ID: Gricelda Norman is a 61 y.o. female. Chief Complaint Patient presents with Migraine Dizziness pain in back HPI Gricelda Norman is a 61 y.o. female past medical history of osteoarthritis, CADs/p PCI and CABG (SVG-OM1, ROSAS-OM2, SVG-OM3), bipolar disorder, DJD, hypertension, GERD, anxiety, osteoporosis, migraines presenting after ER visit for bradycardia, weakness fatigue and dizziness yesterday. Patient's daughter Joyce is also present Patient was transferred to [facility] yesterday for her symptoms. Unfortunately she left [...] notes Katja's maneuver was completed which helped alleviatepatient's dizziness. Cardiology was consulted and they did not feel that admission was necessary as chest pressure/pain was not ischemic in nature. Patient's heart rate did drop to the forties multiple times however per notes blood pressure remained stable and did not feel that further intervention was needed at this time. She states she spoke to her barn boss who will schedule a follow up appointment in the next few days for follow up and that they were aware that she was not admitted. Notes from yesterday: Weakness and fatigue . She states 4 days ago she became very lightheaded and dizzy. She tried to go to sleep however on Tuesday she woke up and was unable to sit up and it tookher 15 to 20 minutes to reorient herself [...] She has not measured her heart rate sincethen. Patient stated having left shoulder pain (hx of shoulder bursitis) but denies any numbness ortingling. She states when she tries to lift [...] significantly but she continues to have lower backpain which was exacerbated over the last few days. She received Percocet in the ED and is requesting a few more day of prescription. We had extensive conversation that due to patient's bradycardia aswell as residual dizziness use of Percocets was [...] however this was not sent in as patientwas admitted to the ED. Patient states increased in severity occurring every 1 to 2 days, lasting afew hours each time. She continues to take Tylenol and Imitrex which did not alleviate her symptoms.She also has a hx of CAD and triptans are contraindicated. She does notice photophobia as well but d enies any nausea or vomiting. Migrane headaches have [...] Hair loss Headache Heart disease Hyperlipidemia Hypertension DE, old Myocardial infarct (HCC) PT STATES SHE [...] Penicillins Iodine And Iodide Containing Products Unknown Ecqyzxpk-Mijumbskk-Wadeouimpn rash and itching Adhesive Itching and Rash Plastic bandaids Neosporin (Lsp-Mdh-Cxobr) [Cdwrnwpn-Oztoimyfiy-Qujdrwffa] Rash Ointment only Patient's Medications New Prescriptions OXYCODONE-ACETAMINOPHEN (PERCOCET) 5-325 MG PER TABLET Take 1 (one) tablet by mouth every 8 (eight)hours as needed for pain . RIMEGEPANT 75 [...] following: Height as of this encounter: 5' 6. Weight as of this encounter: 77.7 kg [...] the medications. Liliya Lara MD [facility] [address] [facility] [address] [facility] [id number] Dept: [phone] documented in this [id number] Miscellaneous Notes* Telephone Encounter - Fouzia Mary MA - 11/19/2021 2:21 PM EST Pharmacy to notify pt when ready * Telephone Encounter - Shyla Francis RN - 11/16/2021 2:37 PM EST RECEIVED DOCUMENTATION FROM [facility] REQUESTING REFILLS ON BUMEX AND TRAZODONE. LAST OV 11/03/21. NEXT OV SCHEDULED FOR 01/04/22. * Telephone Encounter - Thania Espana MA - 11/16/2021 12:27 PM EST Patient called insurance & said they will fax over a form to be filled out Faxed received & NIRMAL Adkins placed in clinical folder * Telephone Encounter - Thania Espana MA - 11/16/2021 11:40 AM EST Patient walked in stated her fustration Patient stated she now has a new insurance that started the first of this year So she now needs her traZODone (DESYREL) 100 MG tablet 200 mg, Oral, Nightly Sent to her new insurance pharmacy * Telephone Encounter - Liliya Lara MD - 11/16/2021 10:38 AM EST Pls let pt know [facility] [address] * Telephone Encounter - Fouzia Mary MA - 11/16/2021 9:12 AM EST ----- Message from Shannan Reaves sent at 11/12/2021 5:27 PM EST ----- Regarding: rx request Contact: self Pt calls frustrated saying she doesn't understand why her trazodone rx isnt being sent in. I told her it says 11/10/21 [facility] mail order received it. PT saying [facility] never got it , could yousend it to the local pharmacy please. traZODone (DESYREL) 100 MG [id number]/28/2021 Sig - Route: Take 2 (two) tablets (200 mg total) by mouth nightly . - Oral Class: No Print Pt call back [phone] documented in this [id number] Miscellaneous Notes* Telephone Encounter - Shyla Francis RN - 11/16/2021 2:37 PM EST RECEIVED DOCUMENTATION FROM [facility] REQUESTING REFILLS ON BUMEX AND TRAZODONE. LAST OV 11/03/21. NEXT OV SCHEDULED FOR 01/04/22. * Telephone Encounter - Thania Espana MA - 11/16/2021 12:27 PM EST Patient called insurance & said they will fax over a form to be filled out Faxed received & NIRMAL Adkins placed in clinical folder * Telephone Encounter - Thania Espana MA - 11/16/2021 11:40 AM EST Patient walked in stated her fustration Patient stated she now has a new insurance that started the first of this year So she now needs her traZODone (DESYREL) 100 MG tablet 200 mg, Oral, Nightly Sent to her new insurance pharmacy * Telephone Encounter - Liliya Lara MD - 11/16/2021 10:38 AM EST Pls let pt know [facility] * Telephone Encounter - Fouzia Mary MA - 11/16/2021 9:12 AM EST ----- Message from Shannan Reaves sent at 11/12/2021 5:27 PM EST ----- Regarding: rx request Contact: self Pt calls frustrated saying she doesn't understand why her trazodone rx isnt being sent in. I told her it says 11/10/21 [facility] mail order received it. PT saying [facility] never got it , could yousend it to the local pharmacy please. traZODone (DESYREL) 100 MG /28/2021 Sig - Route: Take 2 (two) tablets (200 mg total) by mouth nightly . - Oral Class: No Print Pt call back [phone] documented in this [id number] Miscellaneous Notes* Telephone Encounter - Amy Fitzgerald MA - 11/10/2021 11:50 AM EST ----- Message from Rosanne Gonsales sent at 11/10/2021 11:17 AM EST ----- Regarding: Rx Refill Contact: gricelda [phone] MEDICATION REFILL REQUEST: PCP: Liliya Lara MD [...] preferred pharmacy listed below? Yes Preferred pharmacies: [facility] - [place], [place] - [address] AT Portal to [place] [address] [facility] [address] Pt Call Back Number Work Phone Not on file. Patient call back message sent to the primary care clinical pool. Rosanne Gonsales * Telephone Encounter - Amy Fitzgerald MA - 11/10/2021 11:47 AM EST ----- Message from Rosanne Gonsales sent at 11/10/2021 11:17 AM EST ----- Regarding: Rx Refill Contact: gricelda [phone] MEDICATION REFILL REQUEST: PCP: Liliya Lara MD [...] preferred pharmacy listed below? Yes Preferred pharmacies: [facility] - [place], [place] - [address] AT Portal to Registered [facility] Sites [address] [facility] [address] Pt Call Back Number Work Phone Not on file. Patient call back message sent to the primary care clinical pool. Rosanne Gonsales documented in this [id number] Instructions* Patient Instructions* Liliya Lara MD - 11/07/2021 6:53 PM EST Problem List Items Addressed This Visit Cardiovascular and Mediastinum CAD (coronary artery disease), [place] coronary artery Status post bypass graft. Currently [...] (later, may switch to heat, but do notsleep on heating pad), analgesics and Medrol dose pack prescribed. Proper lifting with avoidance ofheavy lifting discussed. Consider Physical Therapy and XRay [...] Most normal results will be available through [facility] however if abnormal, you will be notified. [...] look into their status. Customer Service/Billing Questions: [phone] [facility] Assistance: [phone] or [phone] Financial Assistance: [phone] or [phone] documented in this [id number] Miscellaneous Notes* Assessment & Plan Note - Liliya Lara MD - 11/07/2021 6:51 PM EST Associated Problem(s): CAD (coronary artery disease), [place] coronary artery Status post bypass graft. Currently on Imdur and Lasix which we will change to Bumex she is also taking aspirin and statin as well as lisinopril Last cardiac cath was in 2005 at which time she was not a candidate for surgery. Patient is following up with cardiology. * Assessment & Plan Note - Liliya Lara MD - 11/07/2021 6:40 PM EST Associated Problem(s): Memory problem Recall of words 2 out of 3 Sequence and conc-patient able to repeat days of the week backwards correctly Will test TSH, vitamin B12, RPR and folate -Neurology referral for neuro cognitive assessment * Assessment & Plan Note - Liliya Lara MD - 11/07/2021 6:40 PM EST Associated Problem(s): Insomnia Currently doing well on trazodone 200 mg nightly No changes * Assessment & Plan Note - Liliya Lara MD - 11/07/2021 6:40 PM EST Associated Problem(s): Acute midline low back pain without sciatica For acute pain, rest, intermittent application of cold packs (later, may switch to heat, but do notsleep on heating pad), analgesics and Medrol dose pack prescribed. Proper lifting with avoidance ofheavy lifting discussed. Consider Physical Therapy and XRay studies if not improving. Call or return to clinic prn if these symptoms worsen or fail to improve as anticipated. documented in this [id number] History of Present illness Narrative* Liliya Lara MD - 11/03/2021 3:48 PM EST Subjective Patient ID: Gricelda Norman is a 60 y.o. female. Chief Complaint Patient presents with Other Cortisone shot HPI Patient is a very pleasant 60-year-old female with a past medical history of osteoarthritis, CAD, bipolar disorder, DJD, hypertension, GERD, anxiety, osteoporosis, migraines presenting for a follow-up visit for chronic conditions. Right foot severe hallux valgus with 1st MTP degenerative changes-status post surgery and currentlyreceiving physical therapy. Patient does have bilateral lower [...] her find coverage for this. She states thatthis worked very well for her and she would like to try this medication again. Memory impairment-patient states over the last few months her memory impairment has become much worse and she is beginning to become very concerned. She states that she loses her keys, she forgets her train of thought, she forgets why she walks into a room. And during our conversation patient wouldstop talking and forget what she was talking about and would have to be reoriented. Patient does state having a family history of Alzheimer's and states that for her father it started around this age. She is concerned and would like further testing. Back pain patient states having lower back pain over the last few days -patient states that woke upin the morning with this pain. She believes that she slept on it wrong. Pain is nonradiating, no cauda equina symptoms, [...] as well as lisinopril. No acute complications. Shedenies any significant heart failure symptoms. Last cardiac [...] episode depressed (HCC) CAD (coronary artery disease), [place] coronary artery Degeneration of lumbar intervertebral disc [...] Penicillins Iodine And Iodide Containing Products Unknown Xlnanvng-Sxgfbmhlq-Lfkkezywlo rash and itching Adhesive Itching and Rash Plastic bandaids Neosporin (Zin-Qwo-Biohs) [Jnylrqhg-Ydsgvtmwtg-Nrfhbveti] Rash Ointment only Outpatient Medications as of [...] following: Height as of this encounter: 5' 6. Weight as of this encounter: 75.3 kg [...] Cardiovascular and Mediastinum CAD (coronary artery disease), [place] coronary artery Status post bypass graft. Currently [...] (later, may switch to heat, but do notsleep on heating pad), analgesics and Medrol dose pack prescribed. Proper lifting with avoidance ofheavy lifting discussed. Consider Physical Therapy and XRay [...] medications. Liliya Lara MD documented in this [id number] History of Present illness Narrative* Dario Balderas, PT - 10/27/2021 1:00 PM EST [facility] Evaluation Today's Date 10/27/2021 Patient Name: Gricelda Norman Date of : 1960 Case Name: [...] lower leg. She underwent surgery to correct valgusdeformity of her forefoot (toes 1-4). 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 OTHER: Patient will be able to properly demonstrate independence with HEP in 1 week. 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 The pt would benefit from skilled PT services focused on the above listed impairments andlimitations in order to safely progress pt to [...] week Duration: 6 weeks Interventions: Therapeutic Exercise (96423), Neuromuscular Re-Education (49525), Manual Therapy (33559), Gait Training (62071), Hot/Cold Pack (30288) and Vasopneumatic (54771) Rehab Potential: good Suicide Screen Signs and [...] as management of pain and sensitivity. Dario Balderas, PT State License, [id number] documented in this [id number] History of Past illness Narrative* Problem Noted Date Resolved Date Post-operative state 02/11/2010 01/16/2015 documented as of this encounter (statuses as of 02/17/2022) [address]31-2010 History of Past illness Narrative* Problem Noted Date Resolved Date Post-operative state 02/11/2010 01/16/2015 documented as of this encounter (statuses as of 08/12/2022) [place] [address] History of Past illness Narrative* Problem Noted Date Resolved Date Post-operative state 02/11/2010 01/16/2015 documented as of this encounter (statuses as of 10/25/2022) [address]2010 History of Past illness Narrative* Problem Noted Date Resolved Date Post-operative state 02/11/2010 01/16/2015 documented as of this encounter (statuses as of 11/03/2022) [address]2010 History of Past illness Narrative* Problem Noted Date Resolved Date Post-operative state 02/11/2010 01/16/2015 documented as of this encounter (statuses as of 11/03/2022) [address]2010 History of Past illness Narrative* Problem Noted Date Resolved Date Post-operative state 02/11/2010 01/16/2015 documented as of this encounter (statuses as of 04/28/2023) [address]2010 History of Past illness Narrative* Problem Noted Date Diagnosed Date Resolved Date Post-operative state 02/11/2010 015 documented as of this encounter (statuses as of 08/10/2023) [address]2010 History of Past illness Narrative* Problem Noted Date Diagnosed Date Resolved Date Post-operative state 02/11/2010 015 documented as of this encounter (statuses as of 08/30/2023) [place] [address] History of Past illness Narrative* Problem Noted Date Diagnosed Date Resolved Date Post-operative state 02/11/2010 015 documented as of this encounter (statuses as of 09/02/2023) [place] [address]31[address]2010 History of Past illness Narrative* Problem Noted Date Diagnosed Date Resolved Date Post-operative state 02/11/2010 015 documented as of this encounter (statuses as of 09/14/2023) [place] [address]31[address]2010 History of Past illness Narrative* Problem Noted Date Diagnosed Date Resolved Date Post-operative state 02/11/2010 015 documented as of this encounter (statuses as of 09/20/2023) [address]2010 History of Past illness Narrative* Problem Noted Date Diagnosed Date Resolved Date Post-operative state 02/11/2010 015 documented as of this encounter (statuses as of 09/21/2023) [address]2010 History of Past illness Narrative* Problem Noted Date Diagnosed Date Resolved Date Post-operative state 02/11/2010 015 documented as of this encounter (statuses as of 09/22/2023) [address]2010 History of Past illness Narrative* Problem Noted Date Diagnosed Date Resolved Date Post-operative state 02/11/2010 015 documented as of this encounter (statuses as of 09/28/2023) [facility]03-31-2010 History of Past illness Narrative* Problem Noted Date Diagnosed Date Resolved Date Post-operative state 02/11/2010 015 documented as of this encounter (statuses as of 10/25/2023) [facility]03-31-2010 History of Past illness Narrative* Problem Noted Date Diagnosed Date Resolved Date Post-operative state 02/11/2010 015 documented as of this encounter (statuses as of 10/27/2023) [facility]03-31-2010 History of Past illness Narrative* Problem Noted Date Diagnosed Date Resolved Date Post-operative state 02/11/2010 015 documented as of this encounter (statuses as of 01/13/2024) [facility]-31-2010 History of Past illness Narrative* Problem Noted Date Diagnosed Date Resolved Date Post-operative state 02/11/2010 015 documented as of this encounter (statuses as of 01/20/2024) [facility] note* Diagnosis Valgus deformity of foot, right- Primary Metatarsus adductus of right foot [facility] Diagnosis Valgus deformity of foot, right Metatarsus adductus of right foot [facility]* Diagnosis Memory problem- Primary Memory loss Insomnia, unspecified type Acute midline low back pain without sciatica 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) [facility]* Diagnosis Insomnia, unspecified type [facility]* Diagnosis Insomnia, unspecified type [facility]* Diagnosis Insomnia, unspecified type [facility]* Diagnosis Insomnia, unspecified type 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[facility] Diagnosis Primary osteoarthritis of knee, unspecified laterality- Primary Osteoporosis, unspecified osteoporosis type, unspecified pathological fracture presence [facility] Diagnosis Insomnia, unspecified type Coronary artery disease involving [place] coronary artery of [place] heart with other form of angina pectoris [...] Bilateral shoulder bursitis 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) Edema of lower extremity [facility] Diagnosis Need for COVID-19 vaccine- Primary [facility]* Diagnosis 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)- Primary Bipolar disorder, most recent episode depressed (HCC) Bilateral shoulder bursitis Intractable migraine without status migrainosus, unspecified migraine type Essential hypertension Unspecified essential hypertension Osteoporosis, unspecified osteoporosis type, unspecified pathological fracture presence Hypercholesterolemia Pure hypercholesterolemia [facility]* Diagnosis Anxiety- Primary Anxiety state, unspecified [facility]* Diagnosis Financial difficulties- Primary Inadequate material resources Anxiety Anxiety state, unspecified Arm skin lesion, right Unspecified disorder of skin and subcutaneous tissue [facility] Diagnosis Bilateral shoulder bursitis- Primary [facility]* Diagnosis Anxiety- Primary Anxiety state, unspecified 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) Bilateral shoulder bursitis Bipolar disorder, most recent episode depressed (HCC) [facility]* Diagnosis Degeneration of lumbar intervertebral disc- Primary Degeneration of lumbar or lumbosacral intervertebral disc [facility]* Diagnosis Left hip pain- Primary Pain in joint, pelvic region and thigh Bilateral shoulder bursitis Bipolar disorder, most recent episode depressed (HCC) Essential hypertension Unspecified essential [facility] 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) [facility] Diagnosis Coronary atherosclerosis due to lipid rich plaque- Primary Hypertension, unspecified type Sinus bradycardia Other specified cardiac dysrhythmias Beta-cristiana intolerance Other drug allergy S/P CABG x 3 Postsurgical aortocoronary bypass status Mixed hyperlipidemia S/P angioplasty with stent Other postprocedural status documented in this encounter [facility] note* Diagnosis Degeneration of lumbar intervertebral disc- Primary Degeneration of lumbar or lumbosacral intervertebral disc [facility] Diagnosis Secondary localized osteoarthrosis of lower leg- Primary Secondary localized osteoarthrosis, lower leg [facility] Diagnosis Preop exam for internal medicine- Primary Other specified pre-operative examination 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) Insomnia, unspecified type Intractable migraine without status migrainosus, unspecified migraine type [facility] Diagnosis Coronary atherosclerosis due to lipid rich plaque- Primary Pre-operative cardiovascular examination 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) Coronary atherosclerosis of artery bypass graft S/P angioplasty with stent Other postprocedural status Chronic heart failure with preserved ejection fraction (HCC) documented in this encounter [facility] note* Diagnosis Anxiety Anxiety state, unspecified [facility] Diagnosis Anxiety- Primary Anxiety state, unspecified Insomnia, unspecified type 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) Bipolar disorder, most recent episode depressed (HCC) Low vitamin D level Hypercholesterolemia Pure hypercholesterolemia Therapeutic drug monitoring Encounter for therapeutic drug monitoring Vitamin D deficiency Impaired glucose tolerance in obese Other abnormal glucose Intractable migraine without aura and without status migrainosus Chronic heart failure with preserved ejection fraction (HCC) Status post arthroscopy of left shoulder Status post arthroscopy of hip [facility] Diagnosis Rib pain- Primary Unspecified chest pain Lower extremity edema Edema [facility] Diagnosis S/P CABG x 3- Primary Postsurgical aortocoronary bypass status Chronic heart failure with preserved ejection fraction (HCC) 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) Preoperative cardiovascular examination Pre-operative cardiovascular examination documented in this encounter [facility] note* Diagnosis Financial difficulties- Primary Inadequate material resources Anxiety Anxiety state, unspecified Preop exam for internal medicine Other specified pre-operative examination documented in this encounter [facility] note* Diagnosis S/P lumbar spine operation- Primary Other postprocedural status documented in this encounter [facility] note* Diagnosis Degeneration of lumbar intervertebral disc- Primary Degeneration of lumbar or lumbosacral intervertebral disc documented in this encounter [facility] note* Diagnosis Intractable back pain- Primary 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) Anxiety Anxiety state, unspecified documented in this encounter [facility] note* Diagnosis Degeneration of lumbar intervertebral disc- Primary Degeneration of lumbar or lumbosacral intervertebral disc documented in this encounter [facility] note* Diagnosis Degeneration of lumbar intervertebral disc- Primary Degeneration of lumbar or lumbosacral intervertebral disc documented in this encounter [facility] note* Diagnosis S/P lumbar fusion- Primary Arthrodesis status documented in this encounter [facility] note* Diagnosis Chronic low back pain, unspecified back pain laterality, unspecified whether sciatica present- Primary Restless leg Restless legs syndrome (RLS) Essential hypertension Unspecified essential hypertension Anxiety Anxiety state, unspecified Dermatitis Contact dermatitis and other eczema, due to unspecified cause documented in this encounter [facility] note* Diagnosis S/P lumbar fusion Arthrodesis status documented in this encounter [facility] note* Diagnosis Sacroiliac joint pain- Primary Disorders of sacrum documented in this encounter [facility] note* Diagnosis Sacroiliac joint pain- Primary Disorders of sacrum documented in this encounter [facility] note* Diagnosis Sacroiliitis (HCC) Sacroiliitis, not elsewhere classified documented in this encounter [facility] note* Diagnosis Sacroiliitis (HCC)- Primary Sacroiliitis, not elsewhere classified Chronic pain of multiple sites Generalized pain S/P lumbar fusion Arthrodesis status documented in this encounter [facility] note* Diagnosis Onset Date Resolution Status Status post lumbar spinal fusion acute Status post lumbar spinal fusion acute Work Phone: Evaluation note* Diagnosis Onset Date Resolution Status Status post lumbar spinal fusion acute Status post lumbar spinal fusion acute Other mechanical complicatio n of internal fixation device of vertebrae, sequela acute Status post lumbar spinal fusion acute Work Phone: Evaluation note* Diagnosis Encounter for pre-operative cardiovascular clearance- Primary Pre-operative cardiovascular examination Obesity, Class II, BMI 35-39.9 Obesity, unspecified Chronic heart failure with preserved ejection fraction (HCC) 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) [facility] Onset Date Resolution Status Status post lumbar spinal fusion acute Status post lumbar spinal fusion acute Other mechanical complicatio n of internal fixation device of vertebrae, sequela acute Status post lumbar spinal fusion acute Other mechanical complicatio n of internal fixation device of vertebrae, sequela acute Status post lumbar spinal fusion acute Contact with or exposure to viral disease acute Work Phone: Evaluation note* Diagnosis Onset Date Resolution Status Status post lumbar spinal fusion acute Status post lumbar spinal fusion acute Other mechanical complicatio n of internal fixation device of vertebrae, sequela acute Status post lumbar spinal fusion acute Other mechanical complicatio n of internal fixation device of vertebrae, sequela acute Status post lumbar spinal fusion acute Contact with or exposure to viral disease acute Osteomyelitis of lumbar spine acute Work Phone: Evaluation note* Diagnosis Osteomyelitis of lumbar spine (HCC)- Primary Encounter for adjustment or management of vascular access device [facility] Diagnosis Onset Date Resolution Status Status post lumbar spinal fusion acute Status post lumbar spinal fusion acute Other mechanical complicatio n of internal fixation device of vertebrae, sequela acute Status post lumbar spinal fusion acute Other mechanical complicatio n of internal fixation device of vertebrae, sequela acute Status post lumbar spinal fusion acute Contact with or exposure to viral disease acute Osteomyelitis of lumbar spine acute Osteomyelitis of lumbar spine acute Status post hardware removal acute Osteomyelitis of lumbar spine acute Osteomyelitis of lumbar spine acute Work Phone: Evaluation note* Diagnosis Diarrhea, unspecified documented in this encounter [facility] Work Phone: Evaluation note* Diagnosis Wellness examination- Primary Essential hypertension Unspecified essential hypertension Hypercholesterolemia Pure hypercholesterolemia Vitamin D deficiency Insomnia, unspecified type Migraine with aura and without status migrainosus, not intractable- Primary Osteoporosis, unspecified osteoporosis type, unspecified pathological fracture presence Insomnia, unspecified type Vitamin D deficiency Hypertension, unspecified type- Primary Right atrial enlargement Bilateral leg edema Edema Migraine with status migrainosus, not intractable, unspecified migraine type Acute combined systolic and diastolic congestive heart failure (HCC) Hypokalemia Hypopotassemia Edema of lower extremity Vitamin D deficiency- Primary Insomnia, unspecified type S/P CABG x 3 Postsurgical aortocoronary bypass status Osteoporosis, unspecified osteoporosis type, unspecified pathological fracture presence Cellulitis of fourth toe, right Memory problem- Primary Memory loss Insomnia, unspecified type Acute midline low back pain without sciatica 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) Vertigo- Primary Dizziness and giddiness 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) Symptomatic bradycardia Migraine with status migrainosus, not intractable, unspecified migraine type Acute midline low back pain without sciatica- Primary Intractable migraine with status migrainosus, unspecified migraine type Symptomatic bradycardia Vertigo Dizziness and giddiness Encounter for screening mammogram for breast cancer- Primary 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) Intractable migraine without status migrainosus, unspecified migraine type Symptomatic bradycardia Encounter for gynecological examination- Primary Bilateral shoulder bursitis 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) Edema of lower extremity 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)- Primary Bipolar disorder, most recent episode depressed (HCC) Bilateral shoulder bursitis Intractable migraine without status migrainosus, unspecified migraine type Essential hypertension Unspecified essential hypertension Osteoporosis, unspecified osteoporosis type, unspecified pathological fracture presence Hypercholesterolemia Pure hypercholesterolemia Financial difficulties- Primary Inadequate material resources Anxiety Anxiety state, unspecified Arm skin lesion, right Unspecified disorder of skin and subcutaneous tissue Anxiety- Primary Anxiety state, unspecified 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) Bilateral shoulder bursitis Bipolar disorder, most recent episode depressed (HCC) Left hip pain- Primary Pain in joint, pelvic region and thigh Bilateral shoulder bursitis Bipolar disorder, most recent episode depressed (HCC) Essential hypertension Unspecified essential hypertension Bilateral shoulder bursitis- Primary Preoperative clearance Unspecified pre-operative examination Preop exam for internal medicine- Primary Other specified pre-operative examination 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) Insomnia, unspecified type Intractable migraine without status migrainosus, unspecified migraine type Anxiety- Primary Anxiety state, unspecified Insomnia, unspecified type 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) Bipolar disorder, most recent episode depressed (HCC) Low vitamin D level Hypercholesterolemia Pure hypercholesterolemia Therapeutic drug monitoring Encounter for therapeutic drug monitoring Vitamin D deficiency Impaired glucose tolerance in obese Other abnormal glucose Intractable migraine without aura and without status migrainosus Chronic heart failure with preserved ejection fraction (HCC) Status post arthroscopy of left shoulder Status post arthroscopy of hip Annual physical exam- Primary Routine general medical examination at a health care facility Osteoporosis, unspecified osteoporosis type, unspecified pathological fracture presence Anxiety Anxiety state, unspecified Insomnia, unspecified type Lower extremity edema Edema Rib pain- Primary Unspecified chest pain Lower extremity edema Edema Financial difficulties- Primary Inadequate material resources Anxiety Anxiety state, unspecified Preop exam for internal medicine Other specified pre-operative examination Intractable back pain- Primary 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) Anxiety Anxiety state, unspecified Chronic low back pain, unspecified back pain laterality, unspecified whether sciatica present- Primary Restless leg Restless legs syndrome (RLS) Essential hypertension Unspecified essential hypertension Anxiety Anxiety state, unspecified Dermatitis Contact dermatitis and other eczema, due to unspecified cause Acquired plantar porokeratosis- Primary Bilateral foot pain [facility] Diagnosis Wellness examination- Primary Essential hypertension Unspecified essential hypertension Hypercholesterolemia Pure hypercholesterolemia Vitamin D deficiency Insomnia, unspecified type Migraine with aura and without status migrainosus, not intractable- Primary Osteoporosis, unspecified osteoporosis type, unspecified pathological fracture presence Insomnia, unspecified type Vitamin D deficiency Hypertension, unspecified type- Primary Right atrial enlargement Bilateral leg edema Edema Migraine with status migrainosus, not intractable, unspecified migraine type Acute combined systolic and diastolic congestive heart failure (HCC) Hypokalemia Hypopotassemia Edema of lower extremity Vitamin D deficiency- Primary Insomnia, unspecified type S/P CABG x 3 Postsurgical aortocoronary bypass status Osteoporosis, unspecified osteoporosis type, unspecified pathological fracture presence Cellulitis of fourth toe, right Memory problem- Primary Memory loss Insomnia, unspecified type Acute midline low back pain without sciatica 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) Vertigo- Primary Dizziness and giddiness 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) Symptomatic bradycardia Migraine with status migrainosus, not intractable, unspecified migraine type Acute midline low back pain without sciatica- Primary Intractable migraine with status migrainosus, unspecified migraine type Symptomatic bradycardia Vertigo Dizziness and giddiness Encounter for screening mammogram for breast cancer- Primary 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) Intractable migraine without status migrainosus, unspecified migraine type Symptomatic bradycardia Encounter for gynecological examination- Primary Bilateral shoulder bursitis 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) Edema of lower extremity 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)- Primary Bipolar disorder, most recent episode depressed (HCC) Bilateral shoulder bursitis Intractable migraine without status migrainosus, unspecified migraine type Essential hypertension Unspecified essential hypertension Osteoporosis, unspecified osteoporosis type, unspecified pathological fracture presence Hypercholesterolemia Pure hypercholesterolemia Financial difficulties- Primary Inadequate material resources Anxiety Anxiety state, unspecified Arm skin lesion, right Unspecified disorder of skin and subcutaneous tissue Anxiety- Primary Anxiety state, unspecified 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) Bilateral shoulder bursitis Bipolar disorder, most recent episode depressed (HCC) Left hip pain- Primary Pain in joint, pelvic region and thigh Bilateral shoulder bursitis Bipolar disorder, most recent episode depressed (HCC) Essential hypertension Unspecified essential hypertension Bilateral shoulder bursitis- Primary Preoperative clearance Unspecified pre-operative examination Preop exam for internal medicine- Primary Other specified pre-operative examination 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) Insomnia, unspecified type Intractable migraine without status migrainosus, unspecified migraine type Anxiety- Primary Anxiety state, unspecified Insomnia, unspecified type 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) Bipolar disorder, most recent episode depressed (HCC) Low vitamin D level Hypercholesterolemia Pure hypercholesterolemia Therapeutic drug monitoring Encounter for therapeutic drug monitoring Vitamin D deficiency Impaired glucose tolerance in obese Other abnormal glucose Intractable migraine without aura and without status migrainosus Chronic heart failure with preserved ejection fraction (HCC) Status post arthroscopy of left shoulder Status post arthroscopy of hip Annual physical exam- Primary Routine general medical examination at a health care facility Osteoporosis, unspecified osteoporosis type, unspecified pathological fracture presence Anxiety Anxiety state, unspecified Insomnia, unspecified type Lower extremity edema Edema Rib pain- Primary Unspecified chest pain Lower extremity edema Edema Financial difficulties- Primary Inadequate material resources Anxiety Anxiety state, unspecified Preop exam for internal medicine Other specified pre-operative examination Intractable back pain- Primary 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) Anxiety Anxiety state, unspecified Chronic low back pain, unspecified back pain laterality, unspecified whether sciatica present- Primary Restless leg Restless legs syndrome (RLS) Essential hypertension Unspecified essential hypertension Anxiety Anxiety state, unspecified Dermatitis Contact dermatitis and other eczema, due to unspecified cause Arthritis of right foot- Primary Right foot pain Pain in soft tissues of limb [facility] Diagnosis Wellness examination- Primary Essential hypertension Unspecified essential hypertension Hypercholesterolemia Pure hypercholesterolemia Vitamin D deficiency Insomnia, unspecified type Migraine with aura and without status migrainosus, not intractable- Primary Osteoporosis, unspecified osteoporosis type, unspecified pathological fracture presence Insomnia, unspecified type Vitamin D deficiency Hypertension, unspecified type- Primary Right atrial enlargement Bilateral leg edema Edema Migraine with status migrainosus, not intractable, unspecified migraine type Acute combined systolic and diastolic congestive heart failure (HCC) Hypokalemia Hypopotassemia Edema of lower extremity Vitamin D deficiency- Primary Insomnia, unspecified type S/P CABG x 3 Postsurgical aortocoronary bypass status Osteoporosis, unspecified osteoporosis type, unspecified pathological fracture presence Cellulitis of fourth toe, right Memory problem- Primary Memory loss Insomnia, unspecified type Acute midline low back pain without sciatica 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) Vertigo- Primary Dizziness and giddiness 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) Symptomatic bradycardia Migraine with status migrainosus, not intractable, unspecified migraine type Acute midline low back pain without sciatica- Primary Intractable migraine with status migrainosus, unspecified migraine type Symptomatic bradycardia Vertigo Dizziness and giddiness Encounter for screening mammogram for breast cancer- Primary 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) Intractable migraine without status migrainosus, unspecified migraine type Symptomatic bradycardia Encounter for gynecological examination- Primary Bilateral shoulder bursitis 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) Edema of lower extremity 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)- Primary Bipolar disorder, most recent episode depressed (HCC) Bilateral shoulder bursitis Intractable migraine without status migrainosus, unspecified migraine type Essential hypertension Unspecified essential hypertension Osteoporosis, unspecified osteoporosis type, unspecified pathological fracture presence Hypercholesterolemia Pure hypercholesterolemia Financial difficulties- Primary Inadequate material resources Anxiety Anxiety state, unspecified Arm skin lesion, right Unspecified disorder of skin and subcutaneous tissue Anxiety- Primary Anxiety state, unspecified 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) Bilateral shoulder bursitis Bipolar disorder, most recent episode depressed (HCC) Left hip pain- Primary Pain in joint, pelvic region and thigh Bilateral shoulder bursitis Bipolar disorder, most recent episode depressed (HCC) Essential hypertension Unspecified essential hypertension Bilateral shoulder bursitis- Primary Preoperative clearance Unspecified pre-operative examination Preop exam for internal medicine- Primary Other specified pre-operative examination 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) Insomnia, unspecified type Intractable migraine without status migrainosus, unspecified migraine type Anxiety- Primary Anxiety state, unspecified Insomnia, unspecified type 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) Bipolar disorder, most recent episode depressed (HCC) Low vitamin D level Hypercholesterolemia Pure hypercholesterolemia Therapeutic drug monitoring Encounter for therapeutic drug monitoring Vitamin D deficiency Impaired glucose tolerance in obese Other abnormal glucose Intractable migraine without aura and without status migrainosus Chronic heart failure with preserved ejection fraction (HCC) Status post arthroscopy of left shoulder Status post arthroscopy of hip Annual physical exam- Primary Routine general medical examination at a health care facility Osteoporosis, unspecified osteoporosis type, unspecified pathological fracture presence Anxiety Anxiety state, unspecified Insomnia, unspecified type Lower extremity edema Edema Rib pain- Primary Unspecified chest pain Lower extremity edema Edema Financial difficulties- Primary Inadequate material resources Anxiety Anxiety state, unspecified Preop exam for internal medicine Other specified pre-operative examination Intractable back pain- Primary 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) Anxiety Anxiety state, unspecified Chronic low back pain, unspecified back pain laterality, unspecified whether sciatica present- Primary Restless leg Restless legs syndrome (RLS) Essential hypertension Unspecified essential hypertension Anxiety Anxiety state, unspecified Dermatitis Contact dermatitis and other eczema, due to unspecified cause Arthritis of right ankle- Primary [facility] of [facility] Pain in right ankle and joints of right foot documented in this encounter [facility] Work Phone: Evaluation note* Diagnosis Wellness examination- Primary Essential hypertension Unspecified essential hypertension Hypercholesterolemia Pure hypercholesterolemia Vitamin D deficiency Insomnia, unspecified type Migraine with aura and without status migrainosus, not intractable- Primary Osteoporosis, unspecified osteoporosis type, unspecified pathological fracture presence Insomnia, unspecified type Vitamin D deficiency Hypertension, unspecified type- Primary Right atrial enlargement Bilateral leg edema Edema Migraine with status migrainosus, not intractable, unspecified migraine type Acute combined systolic and diastolic congestive heart failure (HCC) Hypokalemia Hypopotassemia Edema of lower extremity Vitamin D deficiency- Primary Insomnia, unspecified type S/P CABG x 3 Postsurgical aortocoronary bypass status Osteoporosis, unspecified osteoporosis type, unspecified pathological fracture presence Cellulitis of fourth toe, right Memory problem- Primary Memory loss Insomnia, unspecified type Acute midline low back pain without sciatica 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) Vertigo- Primary Dizziness and giddiness 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) Symptomatic bradycardia Migraine with status migrainosus, not intractable, unspecified migraine type Acute midline low back pain without sciatica- Primary Intractable migraine with status migrainosus, unspecified migraine type Symptomatic bradycardia Vertigo Dizziness and giddiness Encounter for screening mammogram for breast cancer- Primary 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) Intractable migraine without status migrainosus, unspecified migraine type Symptomatic bradycardia Encounter for gynecological examination- Primary Bilateral shoulder bursitis 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) Edema of lower extremity 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)- Primary Bipolar disorder, most recent episode depressed (HCC) Bilateral shoulder bursitis Intractable migraine without status migrainosus, unspecified migraine type Essential hypertension Unspecified essential hypertension Osteoporosis, unspecified osteoporosis type, unspecified pathological fracture presence Hypercholesterolemia Pure hypercholesterolemia Financial difficulties- Primary Inadequate material resources Anxiety Anxiety state, unspecified Arm skin lesion, right Unspecified disorder of skin and subcutaneous tissue Anxiety- Primary Anxiety state, unspecified 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) Bilateral shoulder bursitis Bipolar disorder, most recent episode depressed (HCC) Left hip pain- Primary Pain in joint, pelvic region and thigh Bilateral shoulder bursitis Bipolar disorder, most recent episode depressed (HCC) Essential hypertension Unspecified essential hypertension Bilateral shoulder bursitis- Primary Preoperative clearance Unspecified pre-operative examination Preop exam for internal medicine- Primary Other specified pre-operative examination 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) Insomnia, unspecified type Intractable migraine without status migrainosus, unspecified migraine type Anxiety- Primary Anxiety state, unspecified Insomnia, unspecified type 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) Bipolar disorder, most recent episode depressed (HCC) Low vitamin D level Hypercholesterolemia Pure hypercholesterolemia Therapeutic drug monitoring Encounter for therapeutic drug monitoring Vitamin D deficiency Impaired glucose tolerance in obese Other abnormal glucose Intractable migraine without aura and without status migrainosus Chronic heart failure with preserved ejection fraction (HCC) Status post arthroscopy of left shoulder Status post arthroscopy of hip Annual physical exam- Primary Routine general medical examination at a health care facility Osteoporosis, unspecified osteoporosis type, unspecified pathological fracture presence Anxiety Anxiety state, unspecified Insomnia, unspecified type Lower extremity edema Edema Rib pain- Primary Unspecified chest pain Lower extremity edema Edema Financial difficulties- Primary Inadequate material resources Anxiety Anxiety state, unspecified Preop exam for internal medicine Other specified pre-operative examination Intractable back pain- Primary 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) Anxiety Anxiety state, unspecified Chronic low back pain, unspecified back pain laterality, unspecified whether sciatica present- Primary Restless leg Restless legs syndrome (RLS) Essential hypertension Unspecified essential hypertension Anxiety Anxiety state, unspecified Dermatitis Contact dermatitis and other eczema, due to unspecified cause Arthritis of right foot- Primary Chronic pain of right ankle Arthritis of right ankle Right foot pain Pain in soft tissues of [facility] 3- Primary Postsurgical aortocoronary bypass status Swelling of limb SOB (shortness of breath) Shortness of breath Primary hypertension Unspecified essential [facility] Wellness examination- Primary Essential hypertension Unspecified essential hypertension Hypercholesterolemia Pure hypercholesterolemia Vitamin D deficiency Insomnia, unspecified type Migraine with aura and without status migrainosus, not intractable- Primary Osteoporosis, unspecified osteoporosis type, unspecified pathological fracture presence Insomnia, unspecified type Vitamin D deficiency Hypertension, unspecified type- Primary Right atrial enlargement Bilateral leg edema Edema Migraine with status migrainosus, not intractable, unspecified migraine type Acute combined systolic and diastolic congestive heart failure (HCC) Hypokalemia Hypopotassemia Edema of lower extremity Vitamin D deficiency- Primary Insomnia, unspecified type S/P CABG x 3 Postsurgical aortocoronary bypass status Osteoporosis, unspecified osteoporosis type, unspecified pathological fracture presence Cellulitis of fourth toe, right Memory problem- Primary Memory loss Insomnia, unspecified type Acute midline low back pain without sciatica Coronary artery disease involving [place] coronary artery of [place] heart with other form of angina pectoris Vertigo- Primary Dizziness and giddiness 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) Symptomatic bradycardia Migraine with status migrainosus, not intractable, unspecified migraine type Acute midline low back pain without sciatica- Primary Intractable migraine with status migrainosus, unspecified migraine type Symptomatic bradycardia Vertigo Dizziness and giddiness Encounter for screening mammogram for breast cancer- Primary 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) Intractable migraine without status migrainosus, unspecified migraine type Symptomatic bradycardia Encounter for gynecological examination- Primary Bilateral shoulder bursitis Coronary artery disease involving [place] coronary artery of [place] heart with other form of angina pectoris Edema of lower extremity Coronary artery disease involving [place] coronary artery of [place] heart with other form of angina pectoris- Primary Bipolar disorder, most recent episode depressed (HCC) Bilateral shoulder bursitis Intractable migraine without status migrainosus, unspecified migraine type Essential hypertension Unspecified essential hypertension Osteoporosis, unspecified osteoporosis type, unspecified pathological fracture presence Hypercholesterolemia Pure hypercholesterolemia Financial difficulties- Primary Inadequate material resources Anxiety Anxiety state, unspecified Arm skin lesion, right Unspecified disorder of skin and subcutaneous tissue Anxiety- Primary Anxiety state, unspecified Coronary artery disease involving [place] coronary artery of [place] heart with other form of angina pectoris Bilateral shoulder bursitis Bipolar disorder, most recent episode depressed (HCC) Left hip pain- Primary Pain in joint, pelvic region and thigh Bilateral shoulder bursitis Bipolar disorder, most recent episode depressed (HCC) Essential hypertension Unspecified essential hypertension Bilateral shoulder bursitis- Primary Preoperative clearance Unspecified pre-operative examination Preop exam for internal medicine- Primary Other specified pre-operative examination Coronary artery disease involving [place] coronary artery of [place] heart with other form of angina pectoris Insomnia, unspecified type Intractable migraine without status migrainosus, unspecified migraine type Anxiety- Primary Anxiety state, unspecified Insomnia, unspecified type Coronary artery disease involving [place] coronary artery of [place] heart with other form of angina pectoris Bipolar disorder, most recent episode depressed (HCC) Low vitamin D level Hypercholesterolemia Pure hypercholesterolemia Therapeutic drug monitoring Encounter for therapeutic drug monitoring Vitamin D deficiency Impaired glucose tolerance in obese Other abnormal glucose Intractable migraine without aura and without status migrainosus Chronic heart failure with preserved ejection fraction (HCC) Status post arthroscopy of left shoulder Status post arthroscopy of hip Annual physical exam- Primary Routine general medical examination at a health care facility Osteoporosis, unspecified osteoporosis type, unspecified pathological fracture presence Anxiety Anxiety state, unspecified Insomnia, unspecified type Lower extremity edema Edema Rib pain- Primary Unspecified chest pain Lower extremity edema Edema Financial difficulties- Primary Inadequate material resources Anxiety Anxiety state, unspecified Preop exam for internal medicine Other specified pre-operative examination Intractable back pain- Primary Coronary artery disease involving [place] coronary artery of [place] heart with other form of angina pectoris Anxiety Anxiety state, unspecified Chronic low back pain, unspecified back pain laterality, unspecified whether sciatica present- Primary Restless leg Restless legs syndrome (RLS) Essential hypertension Unspecified essential hypertension Anxiety Anxiety state, unspecified Dermatitis Contact dermatitis and other eczema, due to unspecified cause Arthritis of right foot- Primary Chronic pain of right ankle Arthritis of right ankle Right foot pain Pain in soft tissues of limb [facility] noteNo assessment information availableWSumma [facility] Work Phone: Evaluation note* Diagnosis Secondary lymphedema- Primary Other lymphedema PAD (peripheral artery disease) Peripheral vascular disease, unspecified Venous (peripheral) insufficiency Unspecified venous (peripheral) insufficiency documented in this encounter [facility] note* Diagnosis Secondary lymphedema- Primary Other lymphedema Venous (peripheral) insufficiency Unspecified venous (peripheral) insufficiency documented in this encounter [facility] note* Diagnosis Secondary lymphedema- Primary Other lymphedema Venous (peripheral) insufficiency Unspecified venous (peripheral) insufficiency [facility] Wellness examination- Primary Essential hypertension Unspecified essential hypertension Hypercholesterolemia Pure hypercholesterolemia Vitamin D deficiency Insomnia, unspecified type Migraine with aura and without status migrainosus, not intractable- Primary Osteoporosis, unspecified osteoporosis type, unspecified pathological fracture presence Insomnia, unspecified type Vitamin D deficiency Hypertension, unspecified type- Primary Right atrial enlargement Bilateral leg edema Edema Migraine with status migrainosus, not intractable, unspecified migraine type Acute combined systolic and diastolic congestive heart failure (HCC) Hypokalemia Hypopotassemia Edema of lower extremity Vitamin D deficiency- Primary Insomnia, unspecified type S/P CABG x 3 Postsurgical aortocoronary bypass status Osteoporosis, unspecified osteoporosis type, unspecified pathological fracture presence Cellulitis of fourth toe, right Memory problem- Primary Memory loss Insomnia, unspecified type Acute midline low back pain without sciatica Coronary artery disease involving [place] coronary artery of [place] heart with other form of angina pectoris Vertigo- Primary Dizziness and giddiness 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) Symptomatic bradycardia Migraine with status migrainosus, not intractable, unspecified migraine type Acute midline low back pain without sciatica- Primary Intractable migraine with status migrainosus, unspecified migraine type Symptomatic bradycardia Vertigo Dizziness and giddiness Encounter for screening mammogram for breast cancer- Primary 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) Intractable migraine without status migrainosus, unspecified migraine type Symptomatic bradycardia Encounter for gynecological examination- Primary Bilateral shoulder bursitis Coronary artery disease involving [place] coronary artery of [place] heart with other form of angina pectoris Edema of lower extremity Coronary artery disease involving [place] coronary artery of [place] heart with other form of angina pectoris- Primary Bipolar disorder, most recent episode depressed (HCC) Bilateral shoulder bursitis Intractable migraine without status migrainosus, unspecified migraine type Essential hypertension Unspecified essential hypertension Osteoporosis, unspecified osteoporosis type, unspecified pathological fracture presence Hypercholesterolemia Pure hypercholesterolemia Financial difficulties- Primary Inadequate material resources Anxiety Anxiety state, unspecified Arm skin lesion, right Unspecified disorder of skin and subcutaneous tissue Anxiety- Primary Anxiety state, unspecified Coronary artery disease involving [place] coronary artery of [place] heart with other form of angina pectoris Bilateral shoulder bursitis Bipolar disorder, most recent episode depressed (HCC) Left hip pain- Primary Pain in joint, pelvic region and thigh Bilateral shoulder bursitis Bipolar disorder, most recent episode depressed (HCC) Essential hypertension Unspecified essential hypertension Bilateral shoulder bursitis- Primary Preoperative clearance Unspecified pre-operative examination Preop exam for internal medicine- Primary Other specified pre-operative examination Coronary artery disease involving [place] coronary artery of [place] heart with other form of angina pectoris Insomnia, unspecified type Intractable migraine without status migrainosus, unspecified migraine type Anxiety- Primary Anxiety state, unspecified Insomnia, unspecified type Coronary artery disease involving [place] coronary artery of [place] heart with other form of angina pectoris Bipolar disorder, most recent episode depressed (HCC) Low vitamin D level Hypercholesterolemia Pure hypercholesterolemia Therapeutic drug monitoring Encounter for therapeutic drug monitoring Vitamin D deficiency Impaired glucose tolerance in obese Other abnormal glucose Intractable migraine without aura and without status migrainosus Chronic heart failure with preserved ejection fraction (HCC) Status post arthroscopy of left shoulder Status post arthroscopy of hip Annual physical exam- Primary Routine general medical examination at a health care facility Osteoporosis, unspecified osteoporosis type, unspecified pathological fracture presence Anxiety Anxiety state, unspecified Insomnia, unspecified type Lower extremity edema Edema Rib pain- Primary Unspecified chest pain Lower extremity edema Edema Financial difficulties- Primary Inadequate material resources Anxiety Anxiety state, unspecified Preop exam for internal medicine Other specified pre-operative examination Intractable back pain- Primary Coronary artery disease involving [place] coronary artery of [place] heart with other form of angina pectoris Anxiety Anxiety state, unspecified Chronic low back pain, unspecified back pain laterality, unspecified whether sciatica present- Primary Restless leg Restless legs syndrome (RLS) Essential hypertension Unspecified essential hypertension Anxiety Anxiety state, unspecified Dermatitis Contact dermatitis and other eczema, due to unspecified cause Lymphedema- Primary Other noninfectious lymphedema Peripheral edema Edema Chronic pain of right ankle Right foot pain Pain in soft tissues of limb Bilateral foot pain Callus of foot Corns and callosities documented in this encounter [facility] Discharge instructionsAmbulatory Orders* Physical Therapy Referral Location: None Selected Work Phone: Instructions* Name Dates Details Instructions not documented -[facility] Work Phone: Instructions* Name Dates Details Instructions not documented [facility] Work Phone: Patient's home Plan of care note* Visit Details Visit Type -[facility] Center of Care Discipline -Nursing Home Problems Problem Start Date Status Goals Interventions Wound Care and/or Skin Problems Disciplines: Nursing Home 02/14/2024 Active 1 goal linked to scheduled/documented intervention 1 goal intervention scheduled/documented in this visit Assess and Instruct Home Visit Disciplines: Nursing Home 02/14/2024 Active 1 goal linked to scheduled/documented intervention 4 goal interventions scheduled/documented in this visit Medication Management Disciplines: Nursing Home 02/14/2024 Active 1 goal linked to scheduled/documented intervention 1 goal intervention scheduled/documented in this visit Pain Management Disciplines: Nursing Home 02/14/2024 Active 1 goal linked to scheduled/documented intervention 1 goal intervention scheduled/documented in this visit Goals Goal Associated Problem Outcome Goal Met? Visit Notes Wound/Incision Wound Care and/or Skin Problems No Home Care Plan Assess and Instruct Home Visit No Medications Medication Management No Pain Pain Management No Interventions Intervention Associated Problem/Goal Status Variance Visit Notes Wound/Incision Care Problem:Wound Care and/or Skin Problems Goal:Wound/Incision Completed Wound is stable. Educated patient on hand hygiene and infection control techniques, signs/symptoms of infection and when to call or report concerns to home health or provider. patient able to verbalize teach back of hand hygiene, signs/symptoms of infection and when to call or report concerns to home health or provider. patient able to return demonstration of hand hygiene and infection control techniques, dressing removal, cleansing wound and applying dressing. patient continuing to require wound education on hand hygiene and infection control techniques, signs/symptoms of infection and when to call or report concerns to home health or provider. Falls Problem:Assess and Instruct Home Visit Goal:Home Care Plan Completed Clinician taught: patient 4-10 Patient IS at risk for falls (a score of 6 or greater is a predictor of future falls) and clinician instructed: proper footwear, improved lighting, remove clutter and throw rugs, assistive device usage, keep frequently used items in reach and emergency response system and/or keep phone on you Patient/caregiver was able to demonstrate 75% via teachback Safety Problem:Assess and Instruct Home Visit Goal:Home Care Plan Completed Assessed patient vulnerability and home safety risks: environmental Equipment reviewed IV supplies Patient at risk for infection and falls Family members involved in safety plan for Level 2 or 3 n/a Discharge Planning Problem:Assess and Instruct Home Visit Goal:Home Care Plan Completed Home Visit DC Planning: Spoke with patient about DC planning. DC will occur when: patient/caregiver is able to demonstrate safe ambulation, understanding of medications, wound healing, remain free of infection, wound care, IV medicaiton and PICC line mgmt Anticipate DC: On time Patient and/or caregiver response to discharge planning education: verbalized understanding of care plan goals Plan for Next Visit Problem:Assess and Instruct Home Visit Goal:Home Care Plan Completed Follow up education for next visit: safe ambulation, medication purpose and side effects, S&S to report, IV medication and PICC line Skilled intervention at next visit: assessing compliance and medication teaching, for disease mgmt assessment and teaching, including diet, activity, S/S to report to physician, equipment management Instruct Medication Management Problem:Medication Management Goal:Medications Completed Home Visit Med Education: Medication list reconciled. Medication profile and in-home medication list updated with appropriate changes. Discrepanices noted during home visit: none Instructed patient on dosing, purpose, and side effects. Medication education completed today on routine, new, IV antibiotic medication(s). Patient/caregiver is able to teach back 75% of instruction. Assess Pain Characteristics and Current Pain Regimen and Instruct Methods of Pain Relief Problem:Pain Management Goal:Pain Completed [facility] Visit Details Visit Type -SN IV Therapy Ro utine-Billable Discipline -Nursing Home Problems Problem Start Date Status Goals Interventions Wound Care and/or Skin Problems Disciplines: Nursing Home 02/14/2024 Active 1 goal linked to scheduled/documented intervention 1 goal intervention scheduled/documented in this visit Lab/INR Disciplines: Nursing Home 02/14/2024 Active 1 goal linked to scheduled/documented intervention 1 goal intervention scheduled/documented in this visit IV Therapy Disciplines: Nursing Home 02/14/2024 Active 1 goal linked to scheduled/documented intervention 1 goal intervention scheduled/documented in this visit Assess and Instruct Home Visit Disciplines: Nursing Home 02/14/2024 Active 1 goal linked to scheduled/documented intervention 4 goal interventions scheduled/documented in this visit Medication Management Disciplines: Nursing Home 02/14/2024 Active 1 goal linked to scheduled/documented intervention 1 goal intervention scheduled/documented in this visit Pain Management Disciplines: Nursing Home 02/14/2024 Active 1 goal linked to scheduled/documented intervention 1 goal intervention scheduled/documented in this visit Goals Goal Associated Problem Outcome Goal Met? Visit Notes Wound/Incision Wound Care and/or Skin Problems No Lab Lab/INR No IV Therapy IV Therapy No Home Care Plan Assess and Instruct Home Visit No Medications Medication Management No Pain Pain Management No Interventions Intervention Associated Problem/Goal Status Variance Visit Notes Wound/Incision Care Problem:Wound Care and/or Skin Problems Goal:Wound/Incision Completed Wound is progressing. Educated patient on hand hygiene and infection control techniques, cleansing wound, signs/symptoms of infection and when to call or report concerns to home health or provider. patient able to verbalize teach back of hand hygiene, signs/symptoms of infection and when to call or report concerns to home health or provider. patient able to return demonstration of hand hygiene and infection control techniques and cleansing wound. patient continuing to require wound education on hand hygiene and infection control techniques, cleansing wound, signs/symptoms of infection and when to call or report concerns to home health or provider. Lab/Specimen Collection Problem:Lab/INR Goal:Lab Labs were drawn from PICC line and taken to [facility] Instruct IV Therapy Problem:IV Therapy Goal:IV Therapy Centeral line care performed PICC dressing removed per protocol and patient tolerated well Falls Problem:Assess and Instruct Home Visit Goal:Home Care Plan Completed Clinician taught: patient 4-10 Patient IS at risk for falls (a score of 6 or greater is a predictor of future falls) and clinician instructed: proper footwear, improved lighting, safe cord/tubing management (O2, IV, Electrical, Hagen), assistive device usage, keep frequently used items in reach and emergency response system and/or keep phone on you Patient/caregiver was able to demonstrate 95% via teachback Safety Problem:Assess and Instruct Home Visit Goal:Home Care Plan Completed Assessed patient vulnerability and home safety risks: 2 Equipment reviewed IV supplies , PICC line, Patient at risk for harm or abuse risk for falls due to small dog in home and pain to back very high level Family members involved in safety plan for Level 2 or 3 2 Discharge Planning Problem:Assess and Instruct Home Visit Goal:Home Care Plan Completed Home Visit DC Planning: Spoke with patient about DC planning. Assessed for uncontrolled/unresolv ed pain related to Back pain infection and other homebound reason IVAB infusion PICC line DC will occur when: patient/caregiver is able to demonstrate decreased pain level ,improved mobility, free of infection Anticipate DC: Extended Patient and/or caregiver response to discharge planning education: Brian verbalized goals to be free of infection and improved mobility with no pain Plan for Next Visit Problem:Assess and Instruct Home Visit Goal:Home Care Plan Completed Follow up education for next visit: report any S&S of infection and difficulty with IV line Skilled intervention at next visit: Labs ,PICC line dressing change , assess skin intgrity Instruct Medication Management Problem:Medication Management Goal:Medications Completed Home Visit Med Education: Medication list reconciled. Medication profile and in-home medication list updated with appropriate changes. Discrepanices noted during home visit: none Instructed patient on dosing, purpose, and side effects. Medication education completed today on IVAB infusion how to infuse and flush the lines medication(s). Patient/caregiver is able to teach back 95% of instruction. Assess Pain Characteristics and Current Pain Regimen and Instruct Methods of Pain Relief Problem:Pain Management Goal:Pain Completed [facility] Visit Details Visit Type -PT Initial Evalu ation Discipline -Physical Therapy Problems Problem Start Date Status Goals Interventions Wound Care and/or Skin Problems Disciplines: Physical Therapy 02/21/2024 Active 1 goal linked to scheduled/documented intervention 1 goal intervention scheduled/documented in this visit Assess and Instruct Home Visit Disciplines: Physical Therapy 02/21/2024 Active 2 goals linked to scheduled/documented interventions 4 goal interventions scheduled/documented in this visit Home Exercise Program Disciplines: Physical Therapy 02/21/2024 Active 1 goal linked to scheduled/documented intervention 1 goal intervention scheduled/documented in this visit Goals Goal Associated Problem Outcome Goal Met? Visit Notes Wound/Incision Wound Care and/or Skin Problems No Pain Assess and Instruct Home Visit No Home Care Plan Assess and Instruct Home Visit No Home Exercise Program Home Exercise Program No Interventions Intervention Associated Problem/Goal Status Variance Visit Notes Wound/Incision Monitoring Problem:Wound Care and/or Skin Problems Goal:Wound/Incision Completed educated pt to call SN w/ incision concerns; she verbalized understanding. Pain Management Problem:Assess and Instruct Home Visit Goal:Pain Completed see comprehensive pain scale. Plan for Next Visit Problem:Assess and Instruct Home Visit Goal:Home Care Plan Completed gentle balance and LE ther ex Falls Problem:Assess and Instruct Home Visit Goal:Home Care Plan Scheduled Safety Problem:Assess and Instruct Home Visit Goal:Home Care Plan Scheduled Home Exercise Program Problem:Home Exercise Program Goal:Home Exercise Program Completed educated on standing sink ther ex; she demonstrated understanding. [facility] Visit Details Visit Type -J2EE CONSULTANT Routine Visi t Discipline -Physical Therapy Problems Problem Start Date Status Goals Interventions Wound Care and/or Skin Problems Disciplines: Physical Therapy 02/21/2024 Active 1 goal linked to scheduled/documented intervention 1 goal intervention scheduled/documented in this visit Assess and Instruct Home Visit Disciplines: Physical Therapy 02/21/2024 Active 1 goal linked to scheduled/documented intervention 3 goal interventions scheduled/documented in this visit Home Exercise Program Disciplines: Physical Therapy 02/21/2024 Active 1 goal linked to scheduled/documented intervention 1 goal intervention scheduled/documented in this visit Disease-Specific Rehabilitation Disciplines: Physical Therapy 02/21/2024 Active 1 goal linked to scheduled/documented intervention 1 goal intervention scheduled/documented in this visit Goals Goal Associated Problem Outcome Goal Met? Visit Notes Wound/Incision Wound Care and/or Skin Problems No Home Care Plan Assess and Instruct Home Visit No Home Exercise Program Home Exercise Program No Balance Disease-Specific Rehabilitation No Interventions Intervention Associated Problem/Goal Status Variance Visit Notes Wound/Incision Monitoring Problem:Wound Care and/or Skin Problems Goal:Wound/Incision Completed Educated patient on hand hygiene and infection control techniques, signs/symptoms of infection and when to call or report concerns to home health or provider. patient able to verbalize teach back of hand hygiene, signs/symptoms of infection and when to call or report concerns to home health or provider. Falls Problem:Assess and Instruct Home Visit Goal:Home Care Plan Completed Clinician taught: patient 4-10 Patient IS at risk for falls (a score of 6 or greater is a predictor of future falls) and clinician instructed: assistive device usage, keep frequently used items in reach and emergency response system and/or keep phone on you. Patient/caregiver was able to demonstrate 70% via teachback Safety Problem:Assess and Instruct Home Visit Goal:Home Care Plan Completed Assessed patient vulnerability and home safety risks: yes, no falls Equipment reviewed Patient at risk for harm or abuse no Family members involved in safety plan for Level 2 or 3 daughter Plan for Next Visit Problem:Assess and Instruct Home Visit Goal:Home Care Plan Completed Follow up education for next visit: HEP, balance, Skilled intervention at next visit: gait and balance training, HEP Home Exercise Program Problem:Home Exercise Program Goal:Home Exercise Program Completed Patient reports: good complaince and carryover from first visit Clinician taught: patient Clinician instructed on: standing HEP consisting of hip abduction, hip extension, hamstring curls, heel and toe raises, marching, and hip flexion exercises using kitchen counter for support with instruction to complete exercise through full RoM with slow and controlled movements to maximize safety and strengthening. Patient/caregiver is able to teach back 70% of instruction. Balance/Neuromuscular Re-education Problem:Disease-Specif ic Rehabilitation Goal:Balance Completed Patient reports: no falls Clinician taught: patient Clinician instructed on: Instruction for sidestepping both directions, retro and tandem walking at kitchen counter to challenge and train balance responses with unilateral UE support for balance and CGA due to weakness Patient/caregiver is able to teach back 70% of instruction. [facility] Visit Details Visit Type -SN IV Therapy Ro utine-Billable Discipline -Nursing Home Problems Problem Start Date Status Goals Interventions Wound Care and/or Skin Problems Disciplines: Nursing Home 02/14/2024 Active 1 goal linked to scheduled/documented intervention 1 goal intervention scheduled/documented in this visit Lab/INR Disciplines: Nursing Home 02/14/2024 Active 1 goal linked to scheduled/documented intervention 1 goal intervention scheduled/documented in this visit IV Therapy Disciplines: Nursing Home 02/14/2024 Active 1 goal linked to scheduled/documented intervention 1 goal intervention scheduled/documented in this visit Assess and Instruct Home Visit Disciplines: Nursing Home 02/14/2024 Active 1 goal linked to scheduled/documented intervention 4 goal interventions scheduled/documented in this visit Medication Management Disciplines: Nursing Home 02/14/2024 Active 1 goal linked to scheduled/documented intervention 1 goal intervention scheduled/documented in this visit Pain Management Disciplines: Nursing Home 02/14/2024 Active 1 goal linked to scheduled/documented intervention 1 goal intervention scheduled/documented in this visit Goals Goal Associated Problem Outcome Goal Met? Visit Notes Wound/Incision Wound Care and/or Skin Problems No Lab Lab/INR No IV Therapy IV Therapy No Home Care Plan Assess and Instruct Home Visit No Medications Medication Management No Pain Pain Management No Interventions Intervention Associated Problem/Goal Status Variance Visit Notes Wound/Incision Care Problem:Wound Care and/or Skin Problems Goal:Wound/Incision Completed Wound is stable. Educated patient on hand hygiene and infection control techniques, cleansing wound, signs/symptoms of infection and when to call or report concerns to home health or provider. patient able to verbalize teach back of hand hygiene, signs/symptoms of infection and when to call or report concerns to home health or provider. patient able to return demonstration of hand hygiene and infection control techniques and cleansing wound. patient continuing to require wound education on hand hygiene and infection control techniques, cleansing wound, signs/symptoms of infection and when to call or report concerns to home health or provider. Lab/Specimen Collection Problem:Lab/INR Goal:Lab Completed Specimen collection for: CBC,BMP Process of collection: per PICC line Patient tolerated: well Specimen dropped off at: [facility] Date for next lab/specimen collection: 03/05/24 IV Med Management Problem:IV Therapy Goal:IV Therapy Completed Patient reports: no problems with infusing IVAB Clinician taught: patient Clinician instructed on: flushing line , when to call for S&S of infection Patient/caregiver is able to teach back 90% of instruction. Falls Problem:Assess and Instruct Home Visit Goal:Home Care Plan Completed Clinician taught: patient 4-10 Patient IS at risk for falls (a score of 6 or greater is a predictor of future falls) and clinician instructed: proper footwear, safe cord/tubing management (O2, IV, Electrical, Hagen), assistive device usage, keep frequently used items in reach and emergency response system and/or keep phone on you and monitor whereabouts of small animal in home Patient/caregiver was able to demonstrate 90% via teachback Safety Problem:Assess and Instruct Home Visit Goal:Home Care Plan Completed Assessed patient vulnerability and home safety risks: 2 Equipment reviewed IVAB supplies Patient at risk for harm or abuse High risk feor falls Family members involved in safety plan for Level 2 or 3 1 Discharge Planning Problem:Assess and Instruct Home Visit Goal:Home Care Plan Completed Home Visit DC Planning: Spoke with patient about DC planning. Assessed for limited ambulation related to back surgery , dyspnea with exertion, uncontrolled/unresolv ed pain related to back injury and unstable BP DC will occur when: patient/caregiver is able to demonstrate safe ambulation and free of falls Anticipate DC: On time Patient and/or caregiver response to discharge planning education: Goal is to be able to walk and be free of pain get back to gardening and yard work Plan for Next Visit Problem:Assess and Instruct Home Visit Goal:Home Care Plan Completed Follow up education for next visit: Report any falls teachback purpose of medication and side effects of IVAB Skilled intervention at next visit: Labs,Picc line care, Instruct Medication Management Problem:Medication Management Goal:Medications Completed Home Visit Med Education: Medication list reconciled. Medication profile and in-home medication list updated with appropriate changes. Discrepanices noted during home visit: none Instructed patient on dosing, purpose, and side effects. Medication education completed today on BP medication(s). Patient/caregiver is able to teach back 90% of instruction. Assess Pain Characteristics and Current Pain Regimen and Instruct Methods of Pain Relief Problem:Pain Management Goal:Pain Completed [facility] Visit Details Visit Type -J2EE CONSULTANT Routine Visi t Discipline -Physical Therapy Problems Problem Start Date Status Goals Interventions Wound Care and/or Skin Problems Disciplines: Physical Therapy 02/21/2024 Active 1 goal linked to scheduled/documented intervention 1 goal intervention scheduled/documented in this visit Assess and Instruct Home Visit Disciplines: Physical Therapy 02/21/2024 Active 1 goal linked to scheduled/documented intervention 3 goal interventions scheduled/documented in this visit Home Exercise Program Disciplines: Physical Therapy 02/21/2024 Active 1 goal linked to scheduled/documented intervention 1 goal intervention scheduled/documented in this visit Goals Goal Associated Problem Outcome Goal Met? Visit Notes Wound/Incision Wound Care and/or Skin Problems No Home Care Plan Assess and Instruct Home Visit No Home Exercise Program Home Exercise Program No Interventions Intervention Associated Problem/Goal Status Variance Visit Notes Wound/Incision Monitoring Problem:Wound Care and/or Skin Problems Goal:Wound/Incision Completed Educated patient on hand hygiene and infection control techniques, signs/symptoms of infection and when to call or report concerns to home health or provider. patient able to verbalize teach back of hand hygiene, signs/symptoms of infection and when to call or report concerns to home health or provider. Falls Problem:Assess and Instruct Home Visit Goal:Home Care Plan Completed Clinician taught: patient 4-10 Patient IS at risk for falls (a score of 6 or greater is a predictor of future falls) and clinician instructed: proper footwear, keep frequently used items in reach and emergency response system and/or keep phone on you. Patient/caregiver was able to demonstrate 100% via teachback Safety Problem:Assess and Instruct Home Visit Goal:Home Care Plan Completed Assessed patient vulnerability and home safety risks: yes, no falls Equipment reviewed Patient at risk for harm or abuse no Family members involved in safety plan for Level 2 or 3 daughter Plan for Next Visit Problem:Assess and Instruct Home Visit Goal:Home Care Plan Completed Follow up education for next visit: balance training, stair training HEP Skilled intervention at next visit: HEP, gait and stair training, balance training Home Exercise Program Problem:Home Exercise Program Goal:Home Exercise Program Completed Patient reports: difficulty doing exercises due to new onset of increased pain, patient is scheduled to see this week regarding increased pain. Clinician taught: patient Clinician instructed on: seated LAQ, marching, hip abduction, hip adduction, heel raises and ankle DF 10 reps each with J2EE CONSULTANT providing instruction to complete exercises through full available range using slow and controlled movements with isometric hold at end range to maximize strengthening. LImited exercise reps this date due to pain. Patient declined balance training or stair training this date due to pain. Patient/caregiver is able to teach back 70% of instruction. [facility] Visit Details Visit Type -SN HH PRN/On-Justin l Visit Discipline -Nursing Home Problems Problem Start Date Status Goals Interventions Wound Care and/or Skin Problems Disciplines: Nursing Home 02/14/2024 Active 1 goal linked to scheduled/documented intervention 1 goal intervention scheduled/documented in this visit IV Therapy Disciplines: Nursing Home 02/14/2024 Active 1 goal linked to scheduled/documented intervention 1 goal intervention scheduled/documented in this visit Assess and Instruct Home Visit Disciplines: Nursing Home 02/14/2024 Active 1 goal linked to scheduled/documented intervention 4 goal interventions scheduled/documented in this visit Medication Management Disciplines: Nursing Home 02/14/2024 Active 1 goal linked to scheduled/documented intervention 1 goal intervention scheduled/documented in this visit Pain Management Disciplines: Nursing Home 02/14/2024 Active 1 goal linked to scheduled/documented intervention 1 goal intervention scheduled/documented in this visit Goals Goal Associated Problem Outcome Goal Met? Visit Notes Wound/Incision Wound Care and/or Skin Problems No IV Therapy IV Therapy No Home Care Plan Assess and Instruct Home Visit No Medications Medication Management No Pain Pain Management No Interventions Intervention Associated Problem/Goal Status Variance Visit Notes Wound/Incision Care Problem:Wound Care and/or Skin Problems Goal:Wound/Incision Scheduled Instruct IV Therapy Problem:IV Therapy Goal:IV Therapy Old dressing removed, area cleansed per order, new dressing applied, patient tolerated well. Falls Problem:Assess and Instruct Home Visit Goal:Home Care Plan Scheduled Safety Problem:Assess and Instruct Home Visit Goal:Home Care Plan Scheduled Discharge Planning Problem:Assess and Instruct Home Visit Goal:Home Care Plan Scheduled Plan for Next Visit Problem:Assess and Instruct Home Visit Goal:Home Care Plan Scheduled Instruct Medication Management Problem:Medication Management Goal:Medications Scheduled Assess Pain Characteristics and Current Pain Regimen and Instruct Methods of Pain Relief Problem:Pain Management Goal:Pain Scheduled [facility] Visit Details Visit Type -J2EE CONSULTANT Routine Visi t Discipline -Physical Therapy Problems Problem Start Date Status Goals Interventions Wound Care and/or Skin Problems Disciplines: Physical Therapy 02/21/2024 Active 1 goal linked to scheduled/documented intervention 1 goal intervention scheduled/documented in this visit Assess and Instruct Home Visit Disciplines: Physical Therapy 02/21/2024 Active 2 goals linked to scheduled/documented interventions 4 goal interventions scheduled/documented in this visit Home Exercise Program Disciplines: Physical Therapy 02/21/2024 Active 1 goal linked to scheduled/documented intervention 1 goal intervention scheduled/documented in this visit Goals Goal Associated Problem Outcome Goal Met? Visit Notes Wound/Incision Wound Care and/or Skin Problems No Pain Assess and Instruct Home Visit No Home Care Plan Assess and Instruct Home Visit No Home Exercise Program Home Exercise Program No Interventions Intervention Associated Problem/Goal Status Variance Visit Notes Wound/Incision Monitoring Problem:Wound Care and/or Skin Problems Goal:Wound/Incision Completed Educated patient on hand hygiene and infection control techniques, signs/symptoms of infection and when to call or report concerns to home health or provider. patient able to verbalize teach back of hand hygiene, signs/symptoms of infection and when to call or report concerns to home health or provider. Pain Management Problem:Assess and Instruct Home Visit Goal:Pain Completed Patient reports: dr didier coughlin 5-325 every six hours and adair every 12 hours for pain Clinician taught: patient Clinician instructed on: positioning, using ice and energy conservation techniques for pain management Patient/caregiver is able to teach back 100 % of instruction. Falls Problem:Assess and Instruct Home Visit Goal:Home Care Plan Completed Clinician taught: patient 4-10 Patient IS at risk for falls (a score of 6 or greater is a predictor of future falls) and clinician instructed: proper footwear, keep frequently used items in reach and emergency response system and/or keep phone on you. Patient/caregiver was able to demonstrate 90% via teachback Safety Problem:Assess and Instruct Home Visit Goal:Home Care Plan Completed Assessed patient vulnerability and home safety risks: yes, no falls Equipment reviewed Patient at risk for harm or abuse no Family members involved in safety plan for Level 2 or 3 daughter Plan for Next Visit Problem:Assess and Instruct Home Visit Goal:Home Care Plan Completed Follow up education for next visit: gait and balance training, fall prevention Skilled intervention at next visit: HEP, balance training Home Exercise Program Problem:Home Exercise Program Goal:Home Exercise Program Completed Patient reports: struggling to do exercises this week prior to addition of percocet due to pain. She has been able to increase activity level since addition of pain medication. Clinician taught: patient Clinician instructed on: standing HEP consisting of hip abduction, hip extension, hamstring curls, heel and toe raises, marching, squats and hip flexion exercises using kitchen counter for support 20 reps each with instruction for postural awareness to decrease risk for increased back pain and to facilitate correct muscle strengthening. Patient/caregiver is able to teach back 70% of instruction. [facility] Visit Details Visit Type -SN IV Therapy Ro utine-Billable Discipline -Nursing Home Problems Problem Start Date Status Goals Interventions Wound Care and/or Skin Problems Disciplines: Nursing Home 02/14/2024 Active 1 goal linked to scheduled/documented intervention 1 goal intervention scheduled/documented in this visit Assess and Instruct Home Visit Disciplines: Nursing Home 02/14/2024 Active 1 goal linked to scheduled/documented intervention 4 goal interventions scheduled/documented in this visit Medication Management Disciplines: Nursing Home 02/14/2024 Active 1 goal linked to scheduled/documented intervention 1 goal intervention scheduled/documented in this visit Pain Management Disciplines: Nursing Home 02/14/2024 Active 1 goal linked to scheduled/documented intervention 1 goal intervention scheduled/documented in this visit Goals Goal Associated Problem Outcome Goal Met? Visit Notes Wound/Incision Wound Care and/or Skin Problems No Home Care Plan Assess and Instruct Home Visit No Medications Medication Management No Pain Pain Management No Interventions Intervention Associated Problem/Goal Status Variance Visit Notes Wound/Incision Care Problem:Wound Care and/or Skin Problems Goal:Wound/Incision Completed Wound is stable. Educated patient on hand hygiene and infection control techniques, cleansing wound, signs/symptoms of infection and when to call or report concerns to home health or provider. patient able to verbalize teach back of hand hygiene, signs/symptoms of infection and when to call or report concerns to home health or provider. patient able to return demonstration of hand hygiene and infection control techniques and cleansing wound. patient continuing to require wound education on hand hygiene and infection control techniques, cleansing wound, signs/symptoms of infection and when to call or report concerns to home health or provider. Falls Problem:Assess and Instruct Home Visit Goal:Home Care Plan Completed Clinician taught: patient 4-10 Patient IS at risk for falls (a score of 6 or greater is a predictor of future falls) and clinician instructed: proper footwear, improved lighting, safe cord/tubing management (O2, IV, Electrical, Hagen), assistive device usage, keep frequently used items in reach and emergency response system and/or keep phone on you . Patient/caregiver was able to demonstrate 90% via teachback Safety Problem:Assess and Instruct Home Visit Goal:Home Care Plan Completed Assessed patient vulnerability and home safety risks: 2 Equipment reviewed PICC line care and supplies Patient at risk for harm or abuse risk for falls Family members involved in safety plan for Level 2 or 3 1 Discharge Planning Problem:Assess and Instruct Home Visit Goal:Home Care Plan Completed Home Visit DC Planning: Spoke with patient about DC planning. Assessed for limited ambulation related to recent back surgery and uncontrolled/unresolv ed pain related to back pain post surgical intervention with pain and swelling to left side of back DC will occur when: patient/caregiver is able to demonstrate safe ambulation and gait, Free of falls and infections Anticipate DC: Extended Patient and/or caregiver response to discharge planning education: Patient verbalized goals to be free of pain and increase her strength and endurance. Plan for Next Visit Problem:Assess and Instruct Home Visit Goal:Home Care Plan Completed Follow up education for next visit: teachback IV flush meds and purpose with side effects Skilled intervention at next visit: PICC line care,,Lab draws, S&S of infection assessment Instruct Medication Management Problem:Medication Management Goal:Medications Completed Home Visit Med Education: Medication list reconciled. Medication profile and in-home medication list updated with appropriate changes. Discrepanices noted during home visit: none Instructed patient on dosing, purpose, and side effects. Medication education completed today on Heaprin an sodium flushes purpose and side effects. medication(s). Patient/caregiver is able to teach back 90% of instruction. Assess Pain Characteristics and Current Pain Regimen and Instruct Methods of Pain Relief Problem:Pain Management Goal:Pain Completed [facility] Visit Details Visit Type -[employer] Missed Visit Discipline -Physical Therapy Problems Problem Start Date Status Goals Interventions Wound Care and/or Skin Problems Disciplines: Physical Therapy 02/21/2024 Active 1 goal linked to scheduled/documented intervention 1 goal intervention scheduled/documented in this visit Assess and Instruct Home Visit Disciplines: Physical Therapy 02/21/2024 Active 1 goal linked to scheduled/documented intervention 3 goal interventions scheduled/documented in this visit Goals Goal Associated Problem Outcome Goal Met? Visit Notes Wound/Incision Wound Care and/or Skin Problems No Home Care Plan Assess and Instruct Home Visit No Interventions Intervention Associated Problem/Goal Status Variance Visit Notes Wound/Incision Monitoring Problem:Wound Care and/or Skin Problems Goal:Wound/Incision Scheduled Falls Problem:Assess and Instruct Home Visit Goal:Home Care Plan Scheduled Safety Problem:Assess and Instruct Home Visit Goal:Home Care Plan Scheduled Plan for Next Visit Problem:Assess and Instruct Home Visit Goal:Home Care Plan Scheduled [facility] Visit Details Visit Type -PT Non-OASIS/Dis cipl Discharge Discipline -Physical Therapy Problems Problem Start Date Status Goals Interventions Wound Care and/or Skin Problems Disciplines: Physical Therapy 02/21/2024 Resolved on 03/06/2024 1 goal linked to scheduled/documented intervention 1 goal intervention scheduled/documented in this visit Assess and Instruct Home Visit Disciplines: Physical Therapy 02/21/2024 Resolved on 03/06/2024 2 goals linked to scheduled/documented interventions 3 goal interventions scheduled/documented in this visit Home Exercise Program Disciplines: Physical Therapy 02/21/2024 Resolved on 03/06/2024 1 goal linked to scheduled/documented intervention Disease-Specific Rehabilitation Disciplines: Physical Therapy 02/21/2024 Resolved on 03/06/2024 1 goal linked to scheduled/documented intervention Goals Goal Associated Problem Outcome Goal Met? Visit Notes Wound/Incision Wound Care and/or Skin Problems Completed Yes goal met Pain Assess and Instruct Home Visit Completed Yes goal met Home Care Plan Assess and Instruct Home Visit Completed Yes goal met Home Exercise Program Home Exercise Program Completed Yes goal met Balance Disease-Specific Rehabilitation Partially Met No n/t d/t increased spinal pain recently w/ activity Interventions Intervention Associated Problem/Goal Status Variance Visit Notes Wound/Incision Monitoring Problem:Wound Care and/or Skin Problems Goal:Wound/Incision Scheduled Falls Problem:Assess and Instruct Home Visit Goal:Home Care Plan Scheduled Safety Problem:Assess and Instruct Home Visit Goal:Home Care Plan Scheduled Plan for Next Visit Problem:Assess and Instruct Home Visit Goal:Home Care Plan Scheduled [facility] Visit Details Visit Type -SN IV PRN/On-justin l-Billable Discipline -Nursing Home Problems Problem Start Date Status Goals Interventions Wound Care and/or Skin Problems Disciplines: Nursing Home 02/14/2024 Active 1 goal linked to scheduled/documented intervention 1 goal intervention scheduled/documented in this visit Assess and Instruct Home Visit Disciplines: Nursing Home 02/14/2024 Active 1 goal linked to scheduled/documented intervention 4 goal interventions scheduled/documented in this visit Medication Management Disciplines: Nursing Home 02/14/2024 Active 1 goal linked to scheduled/documented intervention 1 goal intervention scheduled/documented in this visit Pain Management Disciplines: Nursing Home 02/14/2024 Active 1 goal linked to scheduled/documented intervention 1 goal intervention scheduled/documented in this visit Goals Goal Associated Problem Outcome Goal Met? Visit Notes Wound/Incision Wound Care and/or Skin Problems No Home Care Plan Assess and Instruct Home Visit No Medications Medication Management No Pain Pain Management No Interventions Intervention Associated Problem/Goal Status Variance Visit Notes Wound/Incision Care Problem:Wound Care and/or Skin Problems Goal:Wound/Incision Completed Wound is stable. Educated patient on hand hygiene and infection control techniques, cleansing wound, signs/symptoms of infection and when to call or report concerns to home health or provider. patient able to verbalize teach back of hand hygiene, signs/symptoms of infection and when to call or report concerns to home health or provider. patient able to return demonstration of hand hygiene and infection control techniques and cleansing wound. patient continuing to require wound education on hand hygiene and infection control techniques, cleansing wound, signs/symptoms of infection and when to call or report concerns to home health or provider. Falls Problem:Assess and Instruct Home Visit Goal:Home Care Plan Completed Clinician taught: patient 4-10 Patient IS at risk for falls (a score of 6 or greater is a predictor of future falls) and clinician instructed: proper footwear, non-slip mats in tubs/showers, keep frequently used items in reach and emergency response system and/or keep phone on you and monitor where abouts of small dog in home. Patient/caregiver was able to demonstrate 90% via teachback Safety Problem:Assess and Instruct Home Visit Goal:Home Care Plan Completed Assessed patient vulnerability and home safety risks: 2 Equipment reviewed IV PICC line, IVAB, Patient at risk for harm or abuse risk for falls Family members involved in safety plan for Level 2 or 3 1 Discharge Planning Problem:Assess and Instruct Home Visit Goal:Home Care Plan Completed Home Visit DC Planning: Spoke with patient about DC planning. Assessed for limited ambulation related to back surgery with pain and infection to spine and poor endurance related to Infectious process to spine on IVAB therapy per PICC line DC will occur when: patient/caregiver is able to demonstrate improved mobility and free of infections and pain Anticipate DC: Extended Patient and/or caregiver response to discharge planning education: Patients goals are to be able to work out in my yard again and walk the dog without probles Plan for Next Visit Problem:Assess and Instruct Home Visit Goal:Home Care Plan Completed Follow up education for next visit: teachback proper mobility with spine when ambulating to prevent injury of spine Skilled intervention at next visit: Lab draws, PICC line care, assessment of the spinal surgery area. Instruct Medication Management Problem:Medication Management Goal:Medications Completed Home Visit Med Education: Medication list reconciled. Medication profile and in-home medication list updated with appropriate changes. Discrepanices noted during home visit: none Instructed patient on dosing, purpose, and side effects. Medication education completed today on IVAB therapy purpose and side effects of medication(s). Patient/caregiver is able to teach back 90% of instruction. Assess Pain Characteristics and Current Pain Regimen and Instruct Methods of Pain Relief Problem:Pain Management Goal:Pain Completed [facility] Visit Details Visit Type -SN IV Therapy Ro utine-Billable Discipline -Nursing Home Problems Problem Start Date Status Goals Interventions Wound Care and/or Skin Problems Disciplines: Nursing Home 02/14/2024 Active 1 goal linked to scheduled/documented intervention 1 goal intervention scheduled/documented in this visit Lab/INR Disciplines: Nursing Home 02/14/2024 Active 1 goal linked to scheduled/documented intervention 1 goal intervention scheduled/documented in this visit Assess and Instruct Home Visit Disciplines: Nursing Home 02/14/2024 Active 1 goal linked to scheduled/documented intervention 4 goal interventions scheduled/documented in this visit Medication Management Disciplines: Nursing Home 02/14/2024 Active 1 goal linked to scheduled/documented intervention 1 goal intervention scheduled/documented in this visit Pain Management Disciplines: Nursing Home 02/14/2024 Active 1 goal linked to scheduled/documented intervention 1 goal intervention scheduled/documented in this visit Goals Goal Associated Problem Outcome Goal Met? Visit Notes Wound/Incision Wound Care and/or Skin Problems No Lab Lab/INR No Home Care Plan Assess and Instruct Home Visit No Medications Medication Management No Pain Pain Management No Interventions Intervention Associated Problem/Goal Status Variance Visit Notes Wound/Incision Care Problem:Wound Care and/or Skin Problems Goal:Wound/Incision Completed Wound is stable. Educated patient on hand hygiene and infection control techniques, signs/symptoms of infection and when to call or report concerns to home health or provider. patient able to verbalize teach back of hand hygiene, signs/symptoms of infection and when to call or report concerns to home health or provider. patient able to return demonstration of hand hygiene and infection control techniques and cleansing wound. patient continuing to require wound education on hand hygiene and infection control techniques, cleansing wound, signs/symptoms of infection and when to call or report concerns to home health or provider. Lab/Specimen Collection Problem:Lab/INR Goal:Lab Labs collected for BMP, CBC, ESR from PICC line, Labs taken to [facility] ER Lab section Falls Problem:Assess and Instruct Home Visit Goal:Home Care Plan Completed Clinician taught: patient 4-10 Patient IS at risk for falls (a score of 6 or greater is a predictor of future falls) and clinician instructed: proper footwear, improved lighting, assistive device usage, keep frequently used items in reach and emergency response system and/or keep phone on you and monitor wher abouts of smmall dog Patient/caregiver was able to demonstrate 90% via teachback Safety Problem:Assess and Instruct Home Visit Goal:Home Care Plan Completed Assessed patient vulnerability and home safety risks: 2 Equipment reviewed IV PICC line Patient at risk for harm or abuse risk for falls Family members involved in safety plan for Level 2 or 3 2 Discharge Planning Problem:Assess and Instruct Home Visit Goal:Home Care Plan Completed Home Visit DC Planning: Spoke with patient about DC planning. Assessed for other homebound reason IVAB therapy, PICC line weakness with back and pain DC will occur when: patient/caregiver is able to demonstrate improved mobility and pain controlled Anticipate DC: On time Patient and/or caregiver response to discharge planning education: Patients goals are to return to work and be able to have less pain Plan for Next Visit Problem:Assess and Instruct Home Visit Goal:Home Care Plan Completed Follow up education for next visit: teachback fall safety infection prevention Skilled intervention at next visit: Lab draw,PICC line care Instruct Medication Management Problem:Medication Management Goal:Medications Completed Home Visit Med Education: Medication list reconciled. Medication profile and in-home medication list updated with appropriate changes. Discrepanices noted during home visit: none Instructed patient on dosing, purpose, and side effects. Medication education completed today on Ceftriaxone medication(s). Patient/caregiver is able to teach back 90% of instruction. Assess Pain Characteristics and Current Pain Regimen and Instruct Methods of Pain Relief Problem:Pain Management Goal:Pain Completed [facility] Visit Details Visit Type -SN IV Therapy Ro utine-Billable Discipline -Nursing Home Problems Problem Start Date Status Goals Interventions Wound Care and/or Skin Problems Disciplines: Nursing Home 02/14/2024 Resolved on 03/19/2024 2 goals linked to scheduled/documented interventions 1 goal intervention scheduled/documented in this visit Assess and Instruct Home Visit Disciplines: Nursing Home 02/14/2024 Active 1 goal linked to scheduled/documented intervention 4 goal interventions scheduled/documented in this visit Medication Management Disciplines: Nursing Home 02/14/2024 Active 1 goal linked to scheduled/documented intervention 1 goal intervention scheduled/documented in this visit Pain Management Disciplines: Nursing Home 02/14/2024 Active 1 goal linked to scheduled/documented intervention 1 goal intervention scheduled/documented in this visit Goals Goal Associated Problem Outcome Goal Met? Visit Notes Wound/Incision Wound Care and/or Skin Problems Completed Yes Skin Breakdown Wound Care and/or Skin Problems Completed Yes Home Care Plan Assess and Instruct Home Visit No Medications Medication Management No Pain Pain Management No Interventions Intervention Associated Problem/Goal Status Variance Visit Notes Wound/Incision Care Problem:Wound Care and/or Skin Problems Goal:Wound/Incision Completed Wound is progressing. Educated patient on hand hygiene and infection control techniques, signs/symptoms of infection and when to call or report concerns to home health or provider. patient able to verbalize teach back of hand hygiene and when to call or report concerns to home health or provider. patient able to return demonstration of hand hygiene and infection control techniques. patient independent with wound education. Falls Problem:Assess and Instruct Home Visit Goal:Home Care Plan Completed Clinician taught: patient 4-10 Patient IS at risk for falls (a score of 6 or greater is a predictor of future falls) and clinician instructed: proper footwear, improved lighting, remove clutter and throw rugs, safe cord/tubing management (O2, IV, Electrical, Hagen), non-slip mats in tubs/showers, handrails/grab bar placement, assistive device usage, keep frequently used items in reach and emergency response system and/or keep phone on you Patient/caregiver was able to demonstrate 100% via teachback Safety Problem:Assess and Instruct Home Visit Goal:Home Care Plan Completed Assessed patient vulnerability and home safety risks: yes Equipment reviewed yes Patient at risk for harm or abuse no Family members involved in safety plan for Level 2 or 3 yes Discharge Planning Problem:Assess and Instruct Home Visit Goal:Home Care Plan Completed Home Visit DC Planning: Spoke with patient about DC planning. Assessed for other homebound reason IVAB via PICC line DC will occur when: patient PICC line discontinued and IVAB complete Anticipate DC: Early Patient and/or caregiver response to discharge planning education: verbalizes understanding and agreeable. Plan for Next Visit Problem:Assess and Instruct Home Visit Goal:Home Care Plan Completed Follow up education for next visit: Monitor PICC line site for s/s of infection. Fall risk safety precautions. Skilled intervention at next visit: Discontinue PICC line and Discontinue SN services. Instruct Medication Management Problem:Medication Management Goal:Medications Completed Home Visit Med Education: Medication list reconciled. Medication profile and in-home medication list updated with appropriate changes. Discrepanices noted during home visit: none Instructed patient on dosing, purpose, and side effects. Medication education completed today on IVAB medication(s). Patient/caregiver is able to teach back 100% of instruction. Assess Pain Characteristics and Current Pain Regimen and Instruct Methods of Pain Relief Problem:Pain Management Goal:Pain Completed [facility] Visit Details Visit Type -SN HH OASIS Disc harge Discipline -Nursing Home Problems Problem Start Date Status Goals Interventions Lab/INR Disciplines: Nursing Home 02/14/2024 Resolved on 03/23/2024 1 goal linked to scheduled/documented intervention IV Therapy Disciplines: Nursing Home 02/14/2024 Resolved on 03/23/2024 1 goal linked to scheduled/documented intervention 1 problem intervention scheduled/documented in this visit Assess and Instruct Home Visit Disciplines: Nursing Home 02/14/2024 Resolved on 03/23/2024 1 goal linked to scheduled/documented intervention 4 goal interventions scheduled/documented in this visit Medication Management Disciplines: Nursing Home 02/14/2024 Resolved on 03/23/2024 1 goal linked to scheduled/documented intervention 1 goal intervention scheduled/documented in this visit Pain Management Disciplines: Nursing Home 02/14/2024 Resolved on 03/23/2024 1 goal linked to scheduled/documented intervention 1 goal intervention scheduled/documented in this visit Goals Goal Associated Problem Outcome Goal Met? Visit Notes Lab Lab/INR Completed Yes IV Therapy IV Therapy Completed Yes Home Care Plan Assess and Instruct Home Visit Completed Yes Medications Medication Management Completed Yes Pain Pain Management Completed Yes Interventions Intervention Associated Problem/Goal Status Variance Visit Notes IV/Line Removal Problem:IV Therapy Completed Goals have been met. Reviewed medications purpose and side effects. Patient able to teach back and understands medications. Educated on fall preventative measures for safety in home patient acknowledges understanding.Patient was able to teachback signs and symptoms of infection and when to notify physician. Line pulled 03/23/24 intact tolerated well no complications Falls Problem:Assess and Instruct Home Visit Goal:Home Care Plan Completed Goals have been met. Reviewed medications purpose and side effects. Patient able to teach back and understands medications. Educated on fall preventative measures for safety in home patient acknowledges understanding.Patient was able to teachback signs and symptoms of infection and when to notify physician. Safety Problem:Assess and Instruct Home Visit Goal:Home Care Plan Completed Goals have been met. Reviewed medications purpose and side effects. Patient able to teach back and understands medications. Educated on fall preventative measures for safety in home patient acknowledges understanding.Patient was able to teachback signs and symptoms of infection and when to notify physician. Discharge Planning Problem:Assess and Instruct Home Visit Goal:Home Care Plan Completed Goals have been met. Reviewed medications purpose and side effects. Patient able to teach back and understands medications. Educated on fall preventative measures for safety in home patient acknowledges understanding.Patient was able to teachback signs and symptoms of infection and when to notify physician. Plan for Next Visit Problem:Assess and Instruct Home Visit Goal:Home Care Plan Completed Goals have been met. Reviewed medications purpose and side effects. Patient able to teach back and understands medications. Educated on fall preventative measures for safety in home patient acknowledges understanding.Patient was able to teachback signs and symptoms of infection and when to notify physician. Instruct Medication Management Problem:Medication Management Goal:Medications Completed Goals have been met. Reviewed medications purpose and side effects. Patient able to teach back and understands medications. Educated on fall preventative measures for safety in home patient acknowledges understanding.Patient was able to teachback signs and symptoms of infection and when to notify physician. Assess Pain Characteristics and Current Pain Regimen and Instruct Methods of Pain Relief Problem:Pain Management Goal:Pain Completed [facility] to [facility]. Reviewed care plan, medications, IV antibiotics, PICC line and safety with ambulation. Patient/caregiver verbalized understanding and agreement. [facility]* Actions Homebound Status Criteria 1: Assistive Device(s): None Needs assistance of at least 1 to leave home Criteria 2: Patient confined to home due to limited ambulation related to pain and unsteady gait/poor balance Type of Home: 1-story house/ trailer, number of outside stairs: 3 Rehab potential: fair Narratives DC plans: to self when ind w / transfers, ambulation, and steps to exit the home. [facility] Actions Patient called nurisng line requesting PICC dressing change due to it being too tight and lifting at the corners as well. Upon arrival vitals were completed and PICC dressing change was completed Patient denies any further needs or questions this visit. [facility]* Actions Educated patient on S&S of i nfection and when to notify the nurse. Patient educated on the importance of safety with her PICC line and care of her dog. Patient is ambulating around home without use of assistive device.Patient has a follow up appointment with Surgeon on to discuss the results of the MRI to see if there is any infection or probelms to the spine. Labs were drawn and taken to [facility] freestanding Lab and ER. [facility] Actions Patient still has swelling t o her back to the left side less tender today with palpation. Remainder of incisional area completely healed . PICC line care performed without difficulty. Confirmed with Physician length of IV Therapy. Spoke directly to Dr North regarding length of IV will continue till the 23 of March. Will see her on the 03/15/24 to decide the next step of care for her [facility]* Actions Head to toe assessment compl ete. Skin warm, dry, and intact. Lung sounds clear. Bowel sounds present x 4. Heart rate regular. No skin issues. PICC line in place to right upper arm. Dressing changed. Sterile technicque maintained. Tolerated well Non-pitting edema noted to right ankle. Some bruising noted. Patient denies falls, twisting, or bumping it. Narratives Alert and oriented. Up in th e recliner. Pleasant and cooperative. [facility] Actions Goals have been met. Reviewe d medications purpose and side effects. Patient able to teach back and understands medications. Educated on fall preventative measures for safety in home patient acknowledges understanding.Patient was able to teachback signs and symptoms of infection and when to notify physician.Educated patient on the signs and symptoms of infection.: very hot red and warm to touch, elevated temp, purulent drainage and foul smell to wound.Educated on the importance of a healthy well balanced diet with fiber and protein to promote healing and prevention of constipation. Encouraged to eat fresh fruit to help promote regularity and meet nutritional demands for healthy diet documented in this encounter [facility] for referral (narrative)* Consultation (Routine) - Pending Review Specialty Diagnoses / Procedures Referred By Miriam quiñonez Referred To Contact Research Test Engine Operator Diagnoses Anxiety Financial difficulties Liliya Lara MD [address] [place] [address] Referral ID Status Reason Start Date Expiration Date Visits Requested Visits Authorized [id number] Pending Review Specialty Services Required/Pat ient's Best Interest 05/04/2023 05/03/2024 1 1 Scheduling Instructions 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 [facility] for referral (narrative)* Diagnostic Procedure Only (Routine) - Pending Review Specialty Diagnoses / Procedures Referred By Miriam quiñonez Referred To Contact XR IMAGING Diagnoses S/P lumbar fusion Procedures XR LUMBAR MOTION 4V AP/LAT/ FLEX/EXT RADEX SPINE LUMBOSACRAL MINIMUM 4 VIEWS Ale Carrion APRN.TREASURY CONSULTANT [address] [place] [address] Xr Imaging [place] [address] Referral ID Status Reason Start Date Expiration Date Visits Requested Visits Authorized [id number] Pending Review Auto-Generat ed Referral 08/09/2023 09/07/2024 1 1 [facility] for referral (narrative)* Diagnostic Procedure Only (Routine) - Closed Specialty Diagnoses / Procedures Referred By Contac t Referred To Contact XR IMAGING Diagnoses Sacroiliitis (HCC) Procedures XR SACRUM/COCCYX 3V AP/LAT RADEX SACRUM & COCCYX MINIMUM 2 VIEWS Ale Carrion APRN.CNP [address] [place] [address] Xr Imaging [place] [address] Referral ID Status Reason Start Date Expiration Date V isits Requested Visits Authorized [id number] Closed Auto-Generate d Referral 10/24/2023 11/22/2024 1 1 [facility] for referral (narrative)* Diagnostic Procedure Only (Routine) - Closed Specialty Diagnoses / Procedures Referred By Contac t Referred To Contact XR IMAGING Diagnoses Sacroiliitis (HCC) Procedures XR SACRUM/COCCYX 3V AP/LAT RADEX SACRUM & COCCYX MINIMUM 2 VIEWS Ale Carrion APRN.TREASURY CONSULTANT [address] [place] [address] Xr Imaging [place] [address] Referral ID Status Reason Start Date Expiration Date V isits Requested Visits Authorized [id number] Closed Auto-Generate d Referral 10/24/2023 11/22/2024 1 1 * Consult, Test, Treat (Routine) - Closed Specialty Diagnoses / Procedures Referred By Contac t Referred To Contact Rheumatology Diagnoses Chronic pain of multiple sites Procedures CONSULT TO RHEUM/IMMUN DISEASE OFFICE/OUTPATIENT NEW [facility] MDM 60-74 MINUTES Ale Carrion APRN.CNP [address] [place] [address] Referral ID Status Reason Start Date Expiration Date V isits Requested Visits Authorized [id number] Closed PCP Requested Referral 10/24/2023 10/23/2024 1 1 * Consult, Test, Treat (Routine) - Pending Review Specialty Diagnoses / Procedures Referred By Contac t Referred To Contact Spine Hebo Diagnoses Chronic pain of multiple sites Sacroiliitis (HCC) S/P lumbar fusion Procedures CONSULT TO [facility] ([facility]IN) OFFICE/OUTPATIENT NEW HIGH MDM 60-74 MINUTES Ale Carrion APRN.CNP [address] [place] [id number] Referral ID Status Reason Start Date Expiration Date Visits Requested Visits Authorized [id number] Pending Review PCP Requested Referral 3 10/23/2024 1 [facility]No reason for referral [facility] Work Phone: Reason for visit Narrative* Diagnostic Procedure Only (Routine) - Closed Specialty Diagnoses / Procedures Referred By Contac t Referred To Contact XR IMAGING Diagnoses S/P lumbar fusion Procedures XR LUMBAR MOTION 4V AP/LAT/ FLEX/EXT RADEX SPINE LUMBOSACRAL MINIMUM 4 VIEWS Ale Carrion APRN.TREASURY CONSULTANT [address] [place] [address] Xr Imaging [place] [address] Referral ID Status Reason Start Date Expiration Date V isits Requested Visits Authorized [id number] Closed Auto-Generate d Referral 08/09/2023 09/07/2024 1 1 [facility] for visit Narrative* Outpatient Procedure (Routine) - Closed Specialty Diagnoses / Procedures Referred By Contac t Referred To Contact Spine Health / SPINE Diagnoses Dx: Sacroiliitis (HCC) [M46.1 (ICD-10-CM)] Procedures Intra-articular Sacroiliac joint injection: Bilateral CPT 96438 Tommy Brennan MD [address] [place] [address] Spine Med Main [address] [place] [id number] Referral ID Status Reason Start Date Expiration Date Visits Re quested Visits Authorized [id number] Closed 09/06/2023 11/13/2023 1 1 [facility] for visit Narrative* Imaging (Routine) - Authorized Specialty Diagnoses / Procedures Referred By Miriam quiñonez Referred To Contact Radiology Diagnoses Pain in right ankle and joints of right foot Procedures XR ankle right 2 views Marietta Johnson, DO [address] [place] [address] Phone: tel: fax: Referral ID Status Reason Start Date Expiration Date Visits Requested Visits Authorized [id number] Authorized Perform Procedure 01/09/2025 01/09/2026 1 1 [facility] Work Phone: Summary Purpose Family History Grandmother Name Dates Details Family history of [...] family history( V49.89, Z78.9) Status:Active Advance Directives Documents on File Type Date Recorded 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 Expl 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 Advance Directives and Living Will Documents on File Type Date Recorded 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 Coordinator Expl anation Advance Directives and Living Will Documents on File Type Date Recorded 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 Coordinator Expl anation Advance Directives and Livin g Will 02/05/2021 7:46 AM Documents on File Type Date Recorded 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 Coordinator Expl anation Advance Directives and Livin g Will 02/05/2021 7:46 AM Documents on File Type Date Recorded 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 Coordinator Expl anation Advance Directives and Livin g Will 12/14/2021 5:10 PM Documents on File Type Date Recorded 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 Coordinator Expl anation Advance Directives and Livin g Will 12/14/2021 5:10 PM Documents on File Type Date Recorded 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 Coordinator Expl anation Advance Directive(s) Advance Directive(s) 12/25/2021 4:07 PM Advance Directive(s) 12/16/2021 3:29 PM Advance Directive(s) 12/15/2021 1:10 AM Advance Directive(s) 06/10/2019 1:38 PM Advance Directive(s) 07/12/2009 2:12 PM Documents on File Type Date Recorded 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 Coordinator Expl anation Advance Directive(s) 07/12/2009 2:12 PM Documents on File Type Date Recorded 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 Coordinator Expl anation Advance Directive(s) 07/12/2009 2:12 PM Advance Directive Response Recorded Date/ Time Name of Medical Power of Casting Carrier KAYLA ELKINS January 18, 2024 1:50pm Living Will Yes January 18, 2024 1:50pm Power of Casting Carrier Yes January 17 1:50pm Date Activated Date Inactivated Comments 02/14/2024 11:11 PM Code Status re flects patient's informed choice. Advance Directive Response Recorded Date/ Time Living Will Yes March 05, 2024 10:12am Power of Casting Carrier Yes March 05 10:12am Name of Medical Power of Casting Carrier KAYLA ELKINS January 18, 2024 1:50pm Date Activated Date Inactivated Comments 02/14/2024 11:11 PM Code Status re flects patient's informed choice. Reason for Referral Status Reason Specialty Diagnoses / Procedures Referre d By Contact Referred To Contact Closed Aubrey Malone, TREASURY CONSULTANT [address] [place] [address] Status Reason Specialty Diagnoses / Procedures Referred By Contact Referred To Contact Authorized Service Not Available Internally Diagnoses Hypertension, unspecified type Right atrial enlargement Bilateral leg edema Procedures Home sleep test Aubrey Malone TREASURY CONSULTANT [address] [place] [id number] EXTERNAL PLACE OF SERVICE NOT IN SYSTEM Specialty Diagnoses / Procedures Referred By Contac t Referred To Contact Rehabilitation Diagnoses Valgus deformity of foot, right Metatarsus adductus of right foot Sofya Dale MD [address] [place] [address] [place] [address] [place] [phone] Referral ID Status Reason Start Date Expiration Date V isits Requested Visits Authorized [id number] Pending Review 10/20/2021 10/20/2022 1 1 Specialty Diagnoses / Procedures Referred By Contac t Referred To Contact Neurology Diagnoses Memory problem Liliya Lara MD [address] [place] [phone] Ed Redmond MD [address] [place] [address] Referral ID Status Reason Start Date Expiration Date Visits Requested Visits Authorized [id number] Pending Review Specialty Services Required/Pat ient's Best Interest 11/03/2022 1 1 Specialty Diagnoses / Procedures Referred By Contac t Referred To Contact Radiology Diagnoses Encounter for screening mammogram for breast cancer Procedures Mammography Screening Emir Bilateral Liliya Lara MD [address] [place] [phone] [place] [address] Referral ID Status Reason Start Date Expiration Date V isits Requested Visits Authorized [id number] Authorized 01/13/2022 01/13/2023 1 1 Specialty Diagnoses / Procedures Referred By Contac t Referred To Contact Radiology Diagnoses Bilateral shoulder bursitis Osteoporosis, unspecified osteoporosis type, unspecified pathological fracture presence Procedures XR Bone [place] [address] [place] [address] [address] [facility] [place] [address] Referral ID Status Reason Start Date Expiration Date V isits Requested Visits Authorized [id number] Authorized 04/27/2022 04/27/2023 1 1 Specialty Diagnoses / Procedures Referred By Contac t Referred To Contact Behavioral Health Diagnoses Anxiety Liliya Lara MD [facility] [place] [address] Laura Galindo, KATINA ALFREDO-[place] Referral ID Status Reason Start Date Expiration Date V isits Requested Visits Authorized [id number] Closed Specialty Services Required/Dayanna ent's Best Interest 05/25/2022 05/25/2023 1 1 Specialty Diagnoses / Procedures Referred By Contac t Referred To Contact Research Test Engine Operator Diagnoses Financial difficulties Liliya Lara MD [facility] [place] [address] Referral ID Status Reason Start Date Expiration Date Visits Requested Visits Authorized [id number] Pending Review Specialty Services Required/Pat ient's Best Interest 05/25/2022 05/25/2023 1 1 Specialty Diagnoses / Procedures Referred By Contac t Referred To Contact Behavorist (Outpatient Social Work) Diagnoses Anxiety Insomnia, unspecified type Liliya Lara MD [address] [place] [phone] Laura Galindo MSW LISW-S Referral ID Status Reason Start Date Expiration Date V isits Requested Visits Authorized [id number] Closed Specialty Services Required/Dayanna ent's Best Interest 01/17/2023 01/17/2024 1 1 Specialty Diagnoses / Procedures Referred By Contact Referred To Contact Nurse Practitioner / Psychiatry Diagnoses Anxiety Bipolar disorder, most recent episode depressed (HCC) Liliya Lara MD [address] [place] [address] Precious Argueta, TREASURY CONSULTANT [address] [place] [phone] Referral ID Status Reason Start Date Expiration Date V isits Requested Visits Authorized [id number] Authorized 01/17/2023 01/17/2024 1 1 Specialty Diagnoses / Procedures Referred By Contac t Referred To Contact Liliya Lara MD [address] [place] [address] Referral ID Status Reason Start Date Expiration Date Visits Re quested Visits Authorized [id number] Denied 1 1 Specialty Diagnoses / Procedures Referred By Contac t Referred To Contact Radiology Diagnoses Degeneration of lumbar intervertebral disc Procedures MR Lumbar Spine Without Contrast Liliya Lara MD [facility] [place] [address] Referral ID Status Reason Start Date Expiration Date V isits Requested Visits Authorized [id number] New Request 06/22/2023 06/21/2024 1 1 Specialty Diagnoses / Procedures Referred By Contac t Referred To Contact Neurological Surgery / Neurosurgery Diagnoses Chronic low back pain, unspecified back pain laterality, unspecified whether sciatica present Liliya Lara MD [address] [place] [address] Rigo Lundberg DO [address] [place] [address] [address] [place] [address] Referral ID Status Reason Start Date Expiration Date V isits Requested Visits Authorized [id number] Closed Specialty Services Required/Dayanna ent's Best Interest 08/01/2023 07/31/2024 1 1 Specialty Diagnoses / Procedures Referred By Contac t Referred To Contact Home Health Services Diagnoses Osteomyelitis of lumbar spine (HCC) Encounter for adjustment or management of vascular access device Tiny Swanson MD [address] [facility] [address] [place] [address] [facility] [address] [place] [address] Referral ID Status Reason Start Date Expiration Date V isits Requested Visits Authorized [id number] Pending Review 02/13/2024 02/12/2025 1 1 Specialty Diagnoses / Procedures Referred By Contac t Referred To Contact Radiology Diagnoses Diarrhea, unspecified Procedures XR ankle right 2 views Marietta Johnson, DO [address] [place] [address] Referral ID Status Reason Start Date Expiration Date Visits Requested Visits Authorized [id number] Authorized Perform Procedure 03/31/2024 03/31/2025 1 1 Instructions * Patient Instructions* Aubrey Malone CNP - 02/17/2021 2:31 PM EDT Problem List Items Addressed This Visit Cardiovascular and Mediastinum Migraine Relevant Medications xyebqgjott-gandsgxobilmm-tpxwqnxm (FIORICET, ESGIC) 50-325-40 mg per capsule Other [...] look into their status. Customer Service/Billing Questions: [phone] MyChart Assistance: [phone] or [phone] Financial Assistance: [phone] or [phone] documented in this encounter* Patient Instructions* Aubrey Malone CNP - 01/12/2021 3:12 PM EST Problem [...] look into their status. Customer Service/Billing Questions: [phone] MyChart Assistance: [phone] or [phone] Financial Assistance: [phone] or [phone] documented in this encounter* Patient Instructions* Aubrey Malone CNP - 12/25/2020 3:01 PM EST Problem [...] look into their status. Customer Service/Billing Questions: [phone] MyChart Assistance: [phone] or [phone] Financial Assistance: [phone] or [phone] documented in this encounter History of Present Illness * Aubrey Malone CNP - 12/25/2020 2:25 PM EST Subjective Patient ID: Gricelda Norman is a 60 y.o. female. Patient is here today to establish care, she is new to this provider and new to this practice. Sherlyn was previously followed by Dr. Ale Caban through [facility]. No prior records available at this time. [...] states she has unusual symptoms with her DE's and they have prescribed percocet in the past. She is on 30 mg of Imdur. This was prescribed through her prior PCP. CAD: Dr. Woo through [facility] is patients barn boss. She has followed this provider since 1999, she states she sees this specialist yearly. She states she has had 10 DE's with 10 cardiac caths. She states she [...] MG TABS 1 tablet as needed OXYCODONE-ACETAMINOPHEN [id number] Ale Dunne LPN 05-02-2018 [facility] ([id number]) TIZANIDINE (ZANAFLEX) 4 MG CAPSULE Take by [...] and potential side effects of the medications. Aubrey Malone CNP Depression Screening 12/25/2020 Little interest or [...] difficult at all documented in this encounter* Aubrey Malone CNP - 01/12/2021 3:09 PM EST Telephone Visit Via Phone Call [facility] [address] [facility] [address] [facility] [id number] Telephone Visit [facility] 01/12/2021 Aubrey Malone CNP Provider Location: [address] [place] [address] Patient Location Cabinetmaker Apprentice: None Patient Location: Patient's Home Patient: Gricelda Norman Date of : 1960 (60 y.o. female) PCP: Aubrey Malone CNP I discussed risks, benefits and alternatives [...] there are inherent diagnostic limitations compared to kvsh-dh-nagx evaluations. We elected toproceed with the telephone [...] Plan of Care. documented in this encounter* Aubrey Malone CNP - 02/17/2021 2:03 PM EDT Subjective Patient ID: Gricelda Norman is a 60 y.o. female. Patient [...] her heart function, leg edema, and insomnia. [place] 3 Echocardiogram 02/05/2021: Summary 1. Mildly enlarged [...] and problem list. Patient's Medications New Prescriptions LFOQEDUANX-DZBUMOHHLZBXW-SSONPVSY (FIORICET, ESGIC) 50-325-40 MG PER CAPSULE Take [...] Visit Cardiovascular and Mediastinum Migraine Relevant Medications ubvvrfutxx-tfevzvgttsfqu-whgucyfw (FIORICET, ESGIC) 50-325-40 mg per capsule Other [...] and potential side effects of the medications. Aubrey Malone CNP documented in this encounter Assessments Diagnosis [...] THERAPEUTIC NERVE BL OCK - G2 09/19/2023 Chief Complaint and Reason for Visit Chief Complaint LUMBAR SPINE RM 2 Arthrodesis status LUMBAR SPINE EORDER Reason for Visit Status post lumbar s pascual fusion Status post lumbar spinal fusion Chief Complaint LUMBAR SPINE RM 2 Arthrodesis status LUMBAR SPINE EORDER Arthrodesis status LUMBAR SPINE Reason for Visit Status post lumbar s pascual fusion Status post lumbar spinal fusion Other mechanical complication of internal fixation device of vertebrae, sequela Status post lumbar spinal fusion Chief Complaint LUMBAR SPINE RM 2 Arthrodesis status LUMBAR SPINE EORDER Arthrodesis status LUMBAR SPINE PREOP lumbar spine Room 1 PRE OP COVID TEST L1 screw removal, possible removal of L1-4 hardwar L1 screw removal, possible removal of L1-4 hardwar Reason for Visit Status post lumbar s pascual fusion Status post lumbar spinal fusion Other mechanical complication of internal fixation device of vertebrae, sequela Status post lumbar spinal fusion Other mechanical complication of internal fixation device of vertebrae, sequela Status post lumbar spinal fusion Contact with or exposure to viral disease Chief Complaint LUMBAR SPINE RM 2 Arthrodesis status LUMBAR SPINE EORDER Arthrodesis status LUMBAR SPINE PREOP lumbar spine Room 1 PRE OP COVID TEST L1 screw removal, possible removal of L1-4 hardwar L1 screw removal, possible removal of L1-4 hardwar 2 GRAMS CEFTRIAXONE 2 GRAMS CEFTRIAXONE 2 GRAMS CEFTRIAXONE Reason for Visit Status post lumbar s pascual fusion Status post lumbar spinal fusion Other mechanical complication of internal fixation device of vertebrae, sequela Status post lumbar spinal fusion Other mechanical complication of internal fixation device of vertebrae, sequela Status post lumbar spinal fusion Contact with or exposure to viral disease Osteomyelitis of lumbar spine Chief Complaint LUMBAR SPINE RM 2 Arthrodesis status LUMBAR SPINE EORDER Arthrodesis status LUMBAR SPINE PREOP lumbar spine Room 1 PRE OP COVID TEST L1 screw removal, possible removal of L1-4 hardwar L1 screw removal, possible removal of L1-4 hardwar 2 GRAMS CEFTRIAXONE 2 GRAMS CEFTRIAXONE 2 GRAMS CEFTRIAXONE 2 GRAMS CEFTRIAXONE Reason for Visit Status post lumbar s pascual fusion Status post lumbar spinal fusion Other mechanical complication of internal fixation device of vertebrae, sequela Status post lumbar spinal fusion Other mechanical complication of internal fixation device of vertebrae, sequela Status post lumbar spinal fusion Contact with or exposure to viral disease Osteomyelitis of lumbar spine Chief Complaint LUMBAR SPINE RM 2 Arthrodesis status LUMBAR SPINE EORDER Arthrodesis status LUMBAR SPINE PREOP lumbar spine Room 1 PRE OP COVID TEST L1 screw removal, possible removal of L1-4 hardwar L1 screw removal, possible removal of L1-4 hardwar 2 GRAMS CEFTRIAXONE 2 GRAMS CEFTRIAXONE 2 GRAMS CEFTRIAXONE 2 GRAMS CEFTRIAXONE 2 GRAMS CEFTRIAXONE Reason for Visit Status post lumbar s pascual fusion Status post lumbar spinal fusion Other mechanical complication of internal fixation device of vertebrae, sequela Status post lumbar spinal fusion Other mechanical complication of internal fixation device of vertebrae, sequela Status post lumbar spinal fusion Contact with or exposure to viral disease Osteomyelitis of lumbar spine Chief Complaint LUMBAR SPINE RM 2 Arthrodesis status LUMBAR SPINE EORDER Arthrodesis status LUMBAR SPINE PREOP lumbar spine Room 1 PRE OP COVID TEST L1 screw removal, possible removal of L1-4 hardwar L1 screw removal, possible removal of L1-4 hardwar 2 GRAMS CEFTRIAXONE 2 GRAMS CEFTRIAXONE 2 GRAMS CEFTRIAXONE 2 GRAMS CEFTRIAXONE 2 GRAMS CEFTRIAXONE lumbar spine Room 3 LUMBAR SPINE Room 2 OSTEOMYELITIS VERTEBRA LUMBAR REGION LUMBAR SPINE Reason for Visit Status post lumbar s pascual fusion Status post lumbar spinal fusion Other mechanical complication of internal fixation device of vertebrae, sequela Status post lumbar spinal fusion Other mechanical complication of internal fixation device of vertebrae, sequela Status post lumbar spinal fusion Contact with or exposure to viral disease Osteomyelitis of lumbar spine Osteomyelitis of lumbar spine Status post hardware removal Osteomyelitis of lumbar spine Osteomyelitis of lumbar spine Chief Complaint LUMBAR SPINE RM 2 Arthrodesis status LUMBAR SPINE EORDER Arthrodesis status LUMBAR SPINE PREOP lumbar spine Room 1 PRE OP COVID TEST L1 screw removal, possible removal of L1-4 hardwar L1 screw removal, possible removal of L1-4 hardwar 2 GRAMS CEFTRIAXONE 2 GRAMS CEFTRIAXONE Reason for Visit Status post lumbar s pascual fusion Status post lumbar spinal fusion Other mechanical complication of internal fixation device of vertebrae, sequela Status post lumbar spinal fusion Other mechanical complication of internal fixation device of vertebrae, sequela Status post lumbar spinal fusion Contact with or exposure to viral disease Osteomyelitis of lumbar spine Chief Complaint Admit Date CABG, SOB, SWELLING February 20, 2025 12:5 5pm Chief Complaint Admit Date SCREENING June 18, 2025 2:2 7pm Additional Source Comments INFORMATION SOURCE (unrecogn ized section and content) DATE CREATED AUTHOR 07/11/2018 [facility] DATE CREATED AUTHOR AUTHOR'S ORGANIZ ATION 01/26/2019 [facility] DATE CREATED AUTHOR AUTHOR'S ORGANIZ ATION 07/13/2019 [facility] DATE CREATED AUTHOR AUTHOR'S ORGANIZ ATION 02/26/2020 [facility] DATE CREATED AUTHOR AUTHOR'S ORGANIZ ATION 02/16/2021 [facility] DATE CREATED AUTHOR AUTHOR'S ORGANIZ ATION 02/16/2022 [facility] DATE CREATED AUTHOR AUTHOR'S ORGANIZ ATION 03/17/2023 [facility] DATE CREATED AUTHOR AUTHOR'S ORGANIZ ATION 05/28/2023 [facility] DATE CREATED AUTHOR AUTHOR'S ORGANIZ ATION 06/24/2023 [facility] DATE CREATED AUTHOR AUTHOR'S ORGANIZ ATION 09/02/2023 [facility] DATE CREATED AUTHOR AUTHOR'S ORGANIZ ATION 09/18/2023 [facility] DATE CREATED AUTHOR AUTHOR'S ORGANIZ ATION 03/27/2024 [facility] DATE CREATED AUTHOR AUTHOR'S ORGANIZ ATION 05/12/2024 [facility] DATE CREATED AUTHOR AUTHOR'S ORGANIZ ATION 01/20/2025 [facility] DATE CREATED AUTHOR AUTHOR'S ORGANIZ ATION 03/09/2025 [facility] DATE CREATED AUTHOR AUTHOR'S ORGANIZ ATION 05/25/2025 [facility] DATE CREATED AUTHOR AUTHOR'S ORGANIZ ATION 06/24/2025 [facility] DATE CREATED AUTHOR AUTHOR'S ORGANIZ ATION 06/27/2025 [facility] Reason for Visit (unrecogniz ed section and content) Reason Comments Establish Care Reason Onset Date Comments Medication Refill 02/06/2021 Reason Comments Follow-up 2 week fu leg swelli ng weight gain Reason Comments Physical Therapy Specialty Diagnoses / Procedures Referred By Miriam quiñonez Referred To Contact Rehabilitation Diagnoses Valgus deformity of foot, right Metatarsus adductus of right foot Sofya Dale MD [address] [place] [address] [id number] [place] [address] Referral ID Status Reason Start Date Expiration Date V isits Requested Visits Authorized [id number] Authorized 10/20/2021 10/20/2022 1 199 Reason Comments [...] Reason Onset Date Comments Care Coordination - [facility] 05/25/2022 Reason Comments Anxiety Reason Comments [...] Reason Onset Date Comments Care Coordination - [facility] 02/17/2023 Reason Onset Date Comments PA [...] Injections Specialty Diagnoses / Procedures Referred By Contac t Referred To Contact Spine Health / SPINE Diagnoses Dx: Sacroiliitis (HCC) [M46.1 (ICD-10-CM)] Procedures Intra-articular Sacroiliac joint injection: Bilateral CPT 30586 Tommy Brennan MD [address] [place] [address] Spine Med Main [address] [id number] Referral ID Status Reason Start Date Expiration Date Visits Re quested Visits Authorized [id number] Closed 09/06/2023 11/13/2023 1 1 Reason Comments Preparations For Procedures Recheck Reason Comments Medication Question Reason Comments Radio Main J1 Specialty Diagnoses / Procedures Referred By Contac t Referred To Contact XR IMAGING Diagnoses Sacroiliitis (HCC) Procedures XR SACRUM/COCCYX 3V AP/LAT RADEX SACRUM & COCCYX MINIMUM 2 VIEWS Ale Carrion APRN.TREASURY CONSULTANT [address] [place] [address] Xr Imaging [place] [address] Referral ID Status Reason Start Date Expiration Date V isits Requested Visits Authorized [id number] Closed Auto-Generate d Referral 10/24/2023 11/22/2024 1 1 Reason Comments Established Patient Reason Comments Appointment Cardiac Clearance Reason Comments Cardiology Follow Up Cardiac clearance Specialty Diagnoses / Procedures Referred By Contac t Referred To Contact Referral ID Status Reason Start Date Expiration Date Visits Re quested Visits Authorized [id number] 1 1 Specialty Diagnoses / Procedures Referred By Contac t Referred To Contact Radiology Diagnoses Diarrhea, unspecified Procedures XR ankle right 2 views Marietta Johnson, DO [address] [place] [address] Referral ID Status Reason Start Date Expiration Date Visits Requested Visits Authorized [id number] Authorized Perform Procedure 03/31/2024 03/31/2025 1 1 Reason Comments Calluses Pt has painful callu ses on the feet - pt has another callus on the L great toe that needs attention - Reason Comments Foot Pain Right foot pain on t he top and bottom of foot Reason Comments Follow-up R foot arthritis - p t states that the injection did help the foot pain - pt states that she has been having pain in the ankle - no trauma or injury Reason Comments Edema R ankle severe pain; had inj at side of ft on 01/01 Arthritis Pain in foot Reason Comments CARD Follow Up 6 Month CAD Reason Comments Results Reason Comments New Patient Specialty Diagnoses / Procedures Referred By Miriam t Referred To Contact Vascular Medicine Diagnoses PAD (peripheral artery disease) Procedures CONSULT TO VASCULAR MEDICINE Susan Buck APRN.TREASURY CONSULTANT [address] [place] [address] Phone: tel: fax: [facility] [address] [place] [address] Referral ID Status Reason Start Date Expiration Date V isits Requested Visits Authorized [id number] Closed PCP Requested Referral 03/07/2025 03/07/2026 1 1 Reason Comments Appointment Reason Comments Follow Up Testing results - PV R and US done on 04/11/25 Reason Comments Established Patient Reason Comments Nurse Triage Call Lymphedema triage at [facility] Reason Comments Follow-up Had an injection don e in 01/2025, missed her 1 month f/u. Still having right ankle pain. Says she is actually having pain of bilat ankles due to severe swelling of lateral ankles. No injury. Says that she did not no show her last apt. She said that she did call and spoke to someone directly and that she cancelled due to the severe swelling. Reason Comments Nurse Triage Call Lymphedema triage Reason Comments Orders Compression wraps an d pump orders Assessment & Plan Note - Aubrey Malone CNP - 12/25/2020 3:00 PM ESTAssessment & Plan Note - Aubrey Malone CNP - 01/12/2021 3:30 PM EST Miscellaneous [...] Care Teams (unrecognized sec tion and content) Piece Goods Packer Relationship Specialty Start Date End Date Liliya Lara MD [address] [id number] PCP - General Internal Medicine 08/05/21 Piece Goods Packer Relationship Specialty Start Date End Date Liliya Lara MD [address] [address] PCP - General Internal Medicine 08/05/21 Piece Goods Packer Relationship Specialty Start Date End Date Liliya Lara MD [address] [address] PCP - General Internal Medicine 08/05/21 Piece Goods Packer Relationship Specialty Start Date End Date Liliya Lara MD [address] [address] PCP - General Internal Medicine 08/05/21 Piece Goods Packer Relationship Specialty Start Date End Date Liliya Lara MD [address] [place], [place] [id number] PCP - General Internal Medicine 08/05/21 Piece Goods Packer Relationship Specialty Start Date End Date Liliya Lara MD [address] [place], [place] [id number] PCP - General Internal Medicine 08/05/21 Piece Goods Packer Relationship Specialty Start Date End Date Liliya Lara MD [address] [place], [place] [id number] PCP - General Internal Medicine 08/05/21 Piece Goods Packer Relationship Specialty Start Date End Date Liliya Lara MD [address] [place], [place] [id number] PCP - General Internal Medicine 08/05/21 Piece Goods Packer Relationship Specialty Start Date End Date Liliya Lara MD [address] [place], [place] [id number] PCP - General Internal Medicine 08/05/21 Piece Goods Packer Relationship Specialty Start Date End Date Liliya Lara MD [address] [place], [place] [id number] PCP - General Internal Medicine 08/05/21 Piece Goods Packer Relationship Specialty Start Date End Date Liliya Lara MD [address] [place], [place] [id number] PCP - General Internal Medicine 08/05/21 Piece Goods Packer Relationship Specialty Start Date End Date Liliya Lara MD [address] [place] [address] PCP - General Internal Medicine 08/05/21 Piece Goods Packer Relationship Specialty Start Date End Date Liliya Lara MD [address] [place], [place] [id number] PCP - General Internal Medicine 08/05/21 Piece Goods Packer Relationship Specialty Start Date End Date Liliya Lara MD [address] [id number] PCP - General Internal Medicine 08/05/21 Piece Goods Packer Relationship Specialty Start Date End Date Liliya Lara MD [address] [id number] PCP - General Internal Medicine 08/05/21 Piece Goods Packer Relationship Specialty [place] [address] [place], [place] [id number] PCP - General Internal Medicine 08/05/21 Piece Goods Packer Relationship Specialty Start Date End Date [place], Aubrey [address] [id number] PCP - General Family Practice 07/01/21 Nagi Wagner MD [address] [id number] Primary Staff Physician Cardiology 12/25/21 Piece Goods Packer Relationship Specialty Start Date End Date Liliya Lara MD [address] [id number] PCP - General Internal Medicine 08/05/21 Piece Goods Packer Relationship Specialty Start Date End Date Liliya Lara MD [address] [id number] PCP - General Internal Medicine 08/05/21 Piece Goods Packer Relationship Specialty Start Date End Date Liliya Lara MD [address] [id number] PCP - General Internal Medicine 08/05/21 Piece Goods Packer Relationship Specialty Start Date End Date Liliya Lara MD [address] [id number] PCP - General Internal Medicine 08/05/21 Piece Goods Packer Relationship Specialty Start Date End Date Liliya Lara MD [address] [id number] PCP - General Internal Medicine 08/05/21 Piece Goods Packer Relationship Specialty Start Date End Date Liliya Lara MD [address] [id number] PCP - General Internal Medicine 08/05/21 Piece Goods Packer Relationship Specialty Start Date End Date Liliya Lara MD [address] [id number] PCP - General Internal Medicine 08/05/21 Piece Goods Packer Relationship Specialty Start Date End Date [address] [place] [id number] PCP - General Family Medicine 07/01/21 Nagi Wagner MD [address] [place] [address] Primary Staff Physician Cardiology 12/25/21 Piece Goods Packer Relationship Specialty Start Date [place] [address] PCP - General Family Medicine 07/01/21 Nagi Wagner MD [address] [place] [address] Primary Staff Physician Cardiology 12/25/21 Piece Goods Packer Relationship Specialty Start Date End Date Liliya Lara MD [address] [place] [id number] PCP - General Internal Medicine 08/05/21 Piece Goods Packer Relationship Specialty Start Date End Date Liliya Lara MD [address] [id number] PCP - General Internal Medicine 11/03/22 Nagi Wagner MD [address] [place] [address] Primary Staff Physician Cardiology 12/25/21 Piece Goods Packer Relationship Specialty Start Date End Date Liliya Lara MD [address] [id number] PCP - General Internal Medicine 11/03/22 Nagi Wagner MD [address] [place] [address] Primary Staff Physician Cardiology 12/25/21 Piece Goods Packer Relationship Specialty Start Date End Date Liliya Lara MD [address] [place] [address] PCP - General Internal Medicine 08/05/21 Piece Goods Packer Relationship Specialty Start Date End Date Liliya Lara MD [address] [id number] PCP - General Internal Medicine 08/05/21 Piece Goods Packer Relationship Specialty Start Date End Date Liliya Lara MD [address] [id number] PCP - General Internal Medicine 08/05/21 Piece Goods Packer Relationship Specialty Start Date End Date Liliya Lara MD [address] [id number] PCP - General Internal Medicine 08/05/21 Piece Goods Packer Relationship Specialty Start Date End Date Liliya Lara MD [address] [id number] PCP - General Internal Medicine 08/05/21 Piece Goods Packer Relationship Specialty Start Date End Date Liliya Lara MD [address] [place] [address] PCP - General Internal Medicine 11/03/22 Nagi Wagner MD [address] [id number] Primary Staff Physician Cardiology 12/25/21 Piece Goods Packer Relationship Specialty Start Date End Date Liliya Lara MD [address] [place] [address] PCP - General Internal Medicine 08/05/21 Sophie Andino, [facility] Medical EngineerMetrology Manager 05/06/23 Piece Goods Packer Relationship Specialty Start Date End Date Liliya Lara MD [address] [place] [address] PCP - General Internal Medicine 08/05/21 Sophie Andino, [facility] Medical EngineerMetrology Manager 05/06/23 Piece Goods Packer Relationship Specialty Start Date End Date Liliya Lara MD [address] [place] [address] PCP - General Internal Medicine 08/05/21 Sophie Andino, [facility] Medical EngineerMetrology Manager 05/06/23 Piece Goods Packer Relationship Specialty Start Date End Date Liliya Lara MD [facility] [place] [address] PCP - General Internal Medicine 08/05/21 Sophie Andino, [facility] Medical EngineerMetrology Manager 05/06/23 Piece Goods Packer Relationship Specialty Start Date End Date Liliya Lara MD [address] [id number] PCP - General Internal Medicine 08/05/21 Sophie Andino, [facility] Medical EngineerMetrology Manager 05/06/23 Piece Goods Packer Relationship Specialty Start Date End Date Liliya Lara MD [address] [id number] PCP - General Internal Medicine 11/03/22 Nagi Wagner MD [address] [place], [place] [id number] Primary Staff Physician Cardiology 12/25/21 Piece Goods Packer Relationship Specialty Start Date End Date Sophie Andino, [facility] Medical EngineerMetrology Manager 05/06/23 08/12/23 Piece Goods Packer Relationship Specialty Start Date End Date Liliya Lara MD [address] [id number] PCP - General Internal Medicine 11/03/22 Nagi Wagner MD [address] [place] [address] Primary Staff Physician Cardiology 12/25/21 Piece Goods Packer Relationship Specialty Start Date End Date Liliya Lara MD [address] [id number] PCP - General Internal Medicine 11/03/22 Nagi Wagner MD [address] [place] [address] Primary Staff Physician Cardiology 12/25/21 Piece Goods Packer Relationship Specialty Start Date End Date Liliya Lara MD [address] [id number] PCP - General Internal Medicine 11/03/22 Nagi Wagner MD [address] [place] [address] Primary Staff Physician Cardiology 12/25/21 Piece Goods Packer Relationship Specialty Start Date End Date Liliya Lara MD [address] [facility] [facility] [place] [id number] PCP - General Internal Medicine 11/03/22 Nagi Wagner MD [address] [place] [address] Primary Staff Physician Cardiology 12/25/21 Piece Goods Packer Relationship Specialty Start Date End Date Liliya Lara MD [address] [id number] PCP - General Internal Medicine 11/03/22 Nagi Wagner MD [address] [place] [address] Primary Staff Physician Cardiology 12/25/21 Piece Goods Packer Relationship Specialty Start Date End Date Liliya Lara MD [address] [id number] PCP - General Internal Medicine 11/03/22 Nagi Wagner MD [address] [place], [place] [id number] Primary Staff Physician Cardiology 12/25/21 Piece Goods Packer Relationship Specialty Start Date End Date Marietta Johnson DO [address] [place], [place] [address] PCP - General Family Medicine 10/24/23 Nagi Wagner MD [address] [place], [place] [id number] Primary Staff Physician Cardiology 12/25/21 Piece Goods Packer Relationship Specialty Start Date End Date Marietta Johnson DO [address] [place] [address] PCP - General Family Medicine 10/24/23 Nagi Wagner MD [address] [place] [address] Primary Staff Physician Cardiology 12/25/21 Team Status: Active Member Role Status Dates Dr. Marietta Johnson DO Primary Care Provider A ctive Team Status: Inactive Member Role Status Dates Dr. Joe Garcia MD Attending Provider Active Team Status: Inactive Member Role Status Dates Dr. Jorge Luis Mendoza MD Attending Provider Active Team Status: Inactive Member Role Status Dates Dr. Marietta Johnson DO Primary Care Provider, Referring Provider Active Dr. Joe Garcia MD Attending Provider Active Team Status: Active Member Role Status Dates Dr. Marietta Johnson DO Primary Care Provider A ctive Dr. Joe Garcia MD Attending Provider, Referring Pr ovider Active Team Status: Inactive Member Role Status Dates Dr. Joe Garcia MD Attending Provider, Referring Pr ovider Active Dr. Marietta Johnson , DO Primary Care Provider A ctive Team Status: Inactive Member Role Status Dates Dr. Marietta Johnson DO Primary Care Provider A ctive Dr. Joe Garcia MD Attending Provider, Referring Pr ovider Active Piece Goods Packer Relationship Specialty Start Date End Date Marietta Johnson DO [address] [place] [address] PCP - General Family Medicine 10/24/23 Nagi Wagner MD [address] [place] [address] Primary Staff Physician Cardiology 12/25/21 Piece Goods Packer Relationship Specialty Start Date End Date Marietta Johnson [place] [address] PCP - General Family Medicine 10/24/23 Nagi Wagner MD [address] [place] [address] Primary Staff Physician Cardiology 12/25/21 Team Status: Inactive Member Role Status Dates Dr. Marietta Johnson , DO Primary Care Provider A ctive Dr. Jorge Luis Mendoza MD Attending Provider Active Team Status: Inactive Member Role Status Dates Dr. Marietta Johnson , DO Primary Care Provider, Referring Provider Active Low Guerrero PA, PA Attending Provider Active Team Status: Active Member Role Status Dates Dr. Marietta Johnson , DO Primary Care Provider A ctive Dr. Nagi Wagoner MD Attending Provider Active Dr. Joe Garcia MD Referring Provider Active Team Status: Active Member Role Status Dates Dr. Marietta Johnson , DO Primary Care Provider, Referring Provider Active Dr. Joe Garcia MD Attending Provider, Other Provid er Active Team Status: Active Member Role Status Dates Dr. Marietta Johnson , DO Primary Care Provider A ctive Dr. Tiny Swanson MD Referring Provider, Other Pr ovider Active Tamia Camacho , AUTOMOTIVE SERVICE CASHIER-C Attending Provider Active Team Status: Inactive Member Role Status Dates Dr. Marietta Johnson , DO Primary Care Provider A ctive Dr. Tiny Swanson MD Attending Provider, Referrin g Provider Active Piece Goods Packer Relationship Specialty Start Date End Date Liliya Lara MD [facility] [place] [address] PCP - General Internal Medicine 02/13/24 Piece Goods Packer Relationship Specialty Start Date End Date Liliya Lara MD [facility] [place] [id number] PCP - General Internal Medicine 02/13/24 Piece Goods Packer Relationship Specialty Start Date End Date Liliya Lara MD [address] [place], [place] [id number] PCP - General Internal Medicine 02/13/24 Piece Goods Packer Relationship Specialty Start Date End Date Liliya Lara MD [address] [place], [place] [id number] PCP - General Internal Medicine 02/13/24 Piece Goods Packer Relationship Specialty Start Date End Date Liliya Lara MD [address] [place], [place] [id number] PCP - General Internal Medicine 02/13/24 Piece Goods Packer Relationship Specialty Start Date End Date Liliya Lara MD [address] [place], [place] [id number] PCP - General Internal Medicine 02/13/24 Piece Goods Packer Relationship Specialty Start Date End Date Liliya Lara MD [address] [place], [place] [id number] PCP - General Internal Medicine 02/13/24 Team Status: Inactive Member Role Status Dates Dr. Marietta Johnson , DO Primary Care Provider A ctive Dr. Tiny Swanson MD Attending Provider Active Team Status: Active Member Role Status Dates Dr. Marietta Johnson , DO Primary Care Provider A ctive Dr. Tiny Swanson MD Attending Provider, [facility] g Provider Active Piece Goods Packer Relationship Specialty Start Date End Date Liliya Lara MD [facility] [place] [id number] PCP - General Internal Medicine 02/13/24 Piece Goods Packer Relationship Specialty Start Date End Date Liliya Lara MD [address] [place] [address] PCP - General 03/18/23 Piece Goods Packer Relationship Specialty Start Date End Date Marietta Johnsno DO [address] [place], [place] [address] PCP - General Family Medicine 08/13/24 Piece Goods Packer Relationship Specialty Start Date End Date Marietta Johnson DO [address] [place], [place] [address] PCP - General Family Medicine 08/13/24 Piece Goods Packer Relationship Specialty Start Date End Date Marietta Johnson DO [address] [place] [address] PCP - General Family Medicine 08/13/24 Piece Goods Packer Relationship Specialty Start Date End Date Marietta Johnson DO [address] [place] [address] PCP - General Family Medicine 06/07/24 Piece Goods Packer Relationship Specialty Start Date End Date Marietta oJhnson DO [address] [place] [address] PCP - General Family Medicine 10/24/23 Nagi Wagner MD [address] [place] [address] Primary Staff Physician Cardiology 12/25/21 Piece Goods Packer Relationship Specialty Start Date End Date Marietta Johnson DO [address] [place], [place] [address] PCP - General Family Medicine 10/24/23 Nagi Wagner MD [address] [place] [address] Primary Staff Physician Cardiology 12/25/21 Piece Goods Packer Relationship Specialty Start Date End Date Marietta Johnson DO [address] [place], [place] [address] PCP - General Family Medicine 08/13/24 Piece Goods Packer Relationship Specialty Start Date End Date Marietta Johnson DO [address] [place], [place] [address] PCP - General Family Medicine 10/24/23 Nagi Wagner MD [address] [place] [address] Primary Staff Physician Cardiology 12/25/21 Team Status: Inactive Member Role Status Dates Dr. Marietta Johnson DO Primary Care Provider A ctive Start: February 20, 2025 End: February 20, 2025 CIELO KRAUS Attending Provider Active Start: February 20, 2025 End: February 20, 2025 CIELO KRAUS Referring Provider Active Start: February 20, 2025 End: February 20, 2025 Team Status: Active Member Role Status Dates Dr. Marietta Johnson DO Primary Care Provider A ctive Start: February 20, 2025 Dr. Jorge Luis Mendoza MD Attending Provider Active S tart: February 20, 2025 Team Status: Active Member Role Status Dates Dr. Marietta Johnson DO Primary Care Provider A ctive Start: February 20, 2025 Dr. Shen Parmar MD Attending Provider Active S tart: February 20, 2025 CIELO KRAUS Referring Provider Active Start: February 20, 2025 Piece Goods Packer Relationship Specialty Start Date End Date Marietta Johnson DO [address] [place] [address] PCP - General Family Medicine 10/24/23 Nagi Wagner MD [address] [place] [address] Primary Staff Physician Cardiology 12/25/21 Piece Goods Packer Relationship Specialty Start Date End Date Marietta Johnson DO [address] [place] [address] PCP - General Family Medicine 10/24/23 Piece Goods Packer Relationship Specialty Start Date End Date Marietta Johnson DO [address] [place] [address] PCP - General Family Medicine 10/24/23 Piece Goods Packer Relationship Specialty Start Date End Date Marietta Johnson DO [address] [place] [address] PCP - General Family Medicine 10/24/23 Piece Goods Packer Relationship Specialty Start Date End Date Marietta Johnson DO [address] [place] [address] PCP - General Family Medicine 10/24/23 Piece Goods Packer Relationship Specialty Start Date End Date Marietta Johnson DO [address] [place] [address] PCP - General Family Medicine 10/24/23 Piece Goods Packer Relationship Specialty Start Date End Date Marietta Johnson DO [address] [place] [address] PCP - General Family Medicine 10/24/23 Piece Goods Packer Relationship Specialty Start Date End Date Marietta Johnson DO [address] [place] [address] PCP - General Family Medicine 10/24/23 Piece Goods Packer Relationship Specialty Start Date End Date Marietta Johnson DO [address] [place] [address] PCP - General Family Medicine 08/13/24 Piece Goods Packer Relationship Specialty Start Date End Date Marietta Johnson DO [address] [place] [address] PCP - General Family Medicine 10/24/23 Team Status: Active Member Role/Relationship Status Dates Dr. Marietta Johnson DO Primary Care Provider A ctive Team Status: Inactive Member Role/Relationship Status Dates Dr. Marietta Johnson DO Primary Care Provider A ctive Start: June 18, 2025 End: June 18, 2025 Dr. Marietta Johnson DO Attending Provider Acti ve Start: June 18, 2025 End: June 18, 2025 Dr. Marietta Johnson DO Referring Provider Acti ve Start: June 18, 2025 End: June 18, 2025 Source Comments (unrecognize d section and content) In the event this informatio n is protected by the Federal Confidentiality of Alcohol and Drug Abuse Patient Records regulations: The Federal rules restrict any use of the information to criminally investigate or prosecute any alcohol or drug abuse patient.[facility] the event this information is protected by the Federal Confidentiality of Alcohol and Drug Abuse Patient Records regulations: The Federal rules restrict any use of the information to criminally investigate or prosecute any alcohol or drug abuse patient.[facility]In the event this information is protected by the Federal Confidentiality of Alcohol and Drug Abuse Patient Records regulations: The Federal rules restrict any use of the information to criminally investigate or prosecute any alcohol or drug abuse patient.[facility]In the event this information is protected by the Federal Confidentiality of Alcohol and Drug Abuse Patient Records regulations: The Federal rules restrict any use of the information to criminally investigate or prosecute any alcohol or drug abuse patient.[facility] HospitalIn the event this information is protected by the Federal Confidentiality of Alcohol and Drug Abuse Patient Records regulations: The Federal rules restrict any use of the information to criminally investigate or prosecute any alcohol or drug abuse patient.[facility] HospitalIn the event this information is protected by the Federal Confidentiality of Alcohol and Drug Abuse Patient Records regulations: The Federal rules restrict any use of the information to criminally investigate or prosecute any alcohol or drug abuse patient.[facility] HospitalIn the event this information is protected by the Federal Confidentiality of Alcohol and Drug Abuse Patient Records regulations: The Federal rules restrict any use of the information to criminally investigate or prosecute any alcohol or drug abuse patient.[facility] HospitalIn the event this information is protected by the Federal Confidentiality of Alcohol and Drug Abuse Patient Records regulations: The Federal rules restrict any use of the information to criminally investigate or prosecute any alcohol or drug abuse patient.[facility] HospitalIn the event this information is protected by the Federal Confidentiality of Alcohol and Drug Abuse Patient Records regulations: The Federal rules restrict any use of the information to criminally investigate or prosecute any alcohol or drug abuse patient.[facility] HospitalIn the event this information is protected by the Federal Confidentiality of Alcohol and Drug Abuse Patient Records regulations: The Federal rules restrict any use of the information to criminally investigate or prosecute any alcohol or drug abuse patient.[facility] HospitalIn the event this information is protected by the Federal Confidentiality of Alcohol and Drug Abuse Patient Records regulations: The Federal rules restrict any use of the information to criminally investigate or prosecute any alcohol or drug abuse patient.[facility] HospitalIn the event this information is protected by the Federal Confidentiality of Alcohol and Drug Abuse Patient Records regulations: The Federal rules restrict any use of the information to criminally investigate or prosecute any alcohol or drug abuse patient.[facility] HospitalIn the event this information is protected by the Federal Confidentiality of Alcohol and Drug Abuse Patient Records regulations: The Federal rules restrict any use of the information to criminally investigate or prosecute any alcohol or drug abuse patient.[facility] HospitalIn the event this information is protected by the Federal Confidentiality of Alcohol and Drug Abuse Patient Records regulations: The Federal rules restrict any use of the information to criminally investigate or prosecute any alcohol or drug abuse patient.[facility] HospitalIn the event this information is protected by the Federal Confidentiality of Alcohol and Drug Abuse Patient Records regulations: The Federal rules restrict any use of the information to criminally investigate or prosecute any alcohol or drug abuse patient.[facility] HospitalIn the event this information is protected by the Federal Confidentiality of Alcohol and Drug Abuse Patient Records regulations: The Federal rules restrict any use of the information to criminally investigate or prosecute any alcohol or drug abuse patient.[facility] HospitalIn the event this information is protected by the Federal Confidentiality of Alcohol and Drug Abuse Patient Records regulations: The Federal rules restrict any use of the information to criminally investigate or prosecute any alcohol or drug abuse patient.[facility] HospitalIn the event this information is protected by the Federal Confidentiality of Alcohol and Drug Abuse Patient Records regulations: The Federal rules restrict any use of the information to criminally investigate or prosecute any alcohol or drug abuse patient.[facility] HospitalIn the event this information is protected by the Federal Confidentiality of Alcohol and Drug Abuse Patient Records regulations: The Federal rules restrict any use of the information to criminally investigate or prosecute any alcohol or drug abuse patient.[facility] HospitalIn the event this information is protected by the Federal Confidentiality of Alcohol and Drug Abuse Patient Records regulations: The Federal rules restrict any use of the information to criminally investigate or prosecute any alcohol or drug abuse patient.[facility] HospitalIn the event this information is protected by the Federal Confidentiality of Alcohol and Drug Abuse Patient Records regulations: The Federal rules restrict any use of the information to criminally investigate or prosecute any alcohol or drug abuse patient.[facility] HospitalIn the event this information is protected by the Federal Confidentiality of Alcohol and Drug Abuse Patient Records regulations: The Federal rules restrict any use of the information to criminally investigate or prosecute any alcohol or drug abuse patient.[facility] HospitalIn the event this information is protected by the Federal Confidentiality of Alcohol and Drug Abuse Patient Records regulations: The Federal rules restrict any use of the information to criminally investigate or prosecute any alcohol or drug abuse patient.[facility] HospitalIn the event this information is protected by the Federal Confidentiality of Alcohol and Drug Abuse Patient Records regulations: The Federal rules restrict any use of the information to criminally investigate or prosecute any alcohol or drug abuse patient.[facility] HospitalIn the event this information is protected by the Federal Confidentiality of Alcohol and Drug Abuse Patient Records regulations: The Federal rules restrict any use of the information to criminally investigate or prosecute any alcohol or drug abuse patient.[facility] HospitalIn the event this information is protected by the Federal Confidentiality of Alcohol and Drug Abuse Patient Records regulations: The Federal rules restrict any use of the information to criminally investigate or prosecute any alcohol or drug abuse patient.[facility] HospitalIn the event this information is protected by the Federal Confidentiality of Alcohol and Drug Abuse Patient Records regulations: The Federal rules restrict any use of the information to criminally investigate or prosecute any alcohol or drug abuse patient.[facility] HospitalIn the event this information is protected by the Federal Confidentiality of Alcohol and Drug Abuse Patient Records regulations: The Federal rules restrict any use of the information to criminally investigate or prosecute any alcohol or drug abuse patient.[facility] HospitalIn the event this information is protected by the Federal Confidentiality of Alcohol and Drug Abuse Patient Records regulations: The Federal rules restrict any use of the information to criminally investigate or prosecute any alcohol or drug abuse patient.[facility] HospitalIn the event this information is protected by the Federal Confidentiality of Alcohol and Drug Abuse Patient Records regulations: The Federal rules restrict any use of the information to criminally investigate or prosecute any alcohol or drug abuse patient.[facility] HospitalIn the event this information is protected by the Federal Confidentiality of Alcohol and Drug Abuse Patient Records regulations: The Federal rules restrict any use of the information to criminally investigate or prosecute any alcohol or drug abuse patient.[facility] HospitalIn the event this information is protected by the Federal Confidentiality of Alcohol and Drug Abuse Patient Records regulations: The Federal rules restrict any use of the information to criminally investigate or prosecute any alcohol or drug abuse patient.[facility] <item><item><item><item> Privacy Markings (unrecogniz ed section and [...] Administ ered Medications (unrecognized section and content) Medication Order 05/14/2023 05/15/2023 05/16/2023 HYDROmorphone (Dilaudid) injection 0.5 mg (COMPLETED) 0.5 mg, IntraMUSCular, Once, On Tue05/16/23 at 1900, For 1 dose, If oral and IV narcotics ordered, use oral first and only use IV if oral is ineffective or cannot take oral. Do Not give oral and IV within 1 hour of each other unless specifically ordered. 1908 (Given - Provid er: Zaria Sharma LPN) orphenadrine (Norflex) injection 60 mg (COMPLETED) 60 mg, IntraMUSCular, Once, On Tue05/16/23 at 2140, For 1 dose 2150 (Given - Provid er: Laura Mosley RN) Goals (unrecognized section and content) Goals may be documented in a n alternate sectionGoals may be documented in an alternate sectionGoals may be documented in an alternate sectionGoals may be documented in an alternate sectionGoals may be documented in an alternate section FOR RECORDS PERTAINING TO PATIENTS WHO ARE [...] BE BASED ON THE PRIMARY CLINICAL RECORDS. [facility] provides no warranty or guarantee of the accuracy or completeness of information in this document.
== END | disposition home or self-care (01) ==
LOC: OPUS 12:22
PROVIDERS: PCP Family Medicine; Referring Provider Family Medicine; Visit Provider Family Medicine
DX: R92.8 Other abnormal and inconclusive findings on diagnostic imaging of breast (principal)
CPT/HCPCS: 76642

== ENCOUNTER → 2025-07-16 | Outpatient (CLI) | payer MEDICARE, SELFPAY ==
--- NOTE | 2025-07-16 14:10 | BRBX_PTH ---
PATIENT: GRICELDA HAYNES LOC: [facility] U#:[id number] AGE/SX: 64/F ROOM: RE07/16/[address]: Dr. Low Webb MD : 1960 BED: DIS: 07/16/2025 SPEC #: [id number] RECD: 07/16/25 15:13 STATUS: DANIEL REQ #: [id number] MACO: 07/16/25 14:[address]: Low Webb DEPT: SURGICAL PATHOLOGY RECD BY: Charan Taylor ENTERED: 07/17/25 09:42 SP TYPE: BREAST BX OT DR: Dr. Marietta Johnson DO Tissues: A - Left breast, NOS Procedures: Surgery Specimen Level V HEADER OPERATION: Left breast biopsy PRE-OP DIAGNOSIS: Left breast mass TISSUE SUBMITTED: A- Left breast tissue MICROSCOPIC DIAGNOSIS A. Breast, left, core biopsy: - Fibroadenoma. - No evidence of malignancy in these sections. MICROSCOPIC DESCRIPTION Slides are reviewed. GROSS DESCRIPTION A. Received in formalin labeled with the patient's name and date of . Designated as L breast tissue are 2 fragmented, ware-yellow tissue cores, 0.9 cm and 1.2 cm in length by 0.1 cm in diameter. Entirely submitted in 1 cassette. Cold ischemic time: <1-minuteFormalin fixation time: 29 hours, 20 minutes PR 07/17/2025 CPT:99955
== END | disposition home or self-care (01) ==
LOC: LABSPEC 15:53
PROVIDERS: PCP Family Medicine; Referring Provider Surgery; Visit Provider Surgery
DX: D24.2 Benign neoplasm of left breast (principal)
CPT/HCPCS: 88307